=== PATIENT | female | born 2000 | race Caucasian/White ===

== ENCOUNTER 2020-04-22 08:57 | Outpatient (REF) | payer OTHER, SELFPAY ==
[2020-04-22 16:05] LABS: CT PCR NOT DETECTED (Not Detect.); NG PCR NOT DETECTED (Not Detect.)
[2020-04-23 11:17] LABS: BV Int Neg Control Negative (Negative); BV Int Pos Control Positive (Positive)
== END 2020-04-22 08:58 | disposition home or self-care (01) ==
LOC: HO.LAB 08:57
PROVIDERS: Visit Provider Obstetrics & Gynecology
DX: R10.2 Pelvic and perineal pain (principal); Z30.9 Encounter for contraceptive management, unspecified
CPT/HCPCS: 81025; 87480; 87491; 87510; 87591; 87660; 99212

== ENCOUNTER 2020-04-25 11:01 | Emergency (ER) | payer OTHER, SELFPAY ==
[2020-04-25 11:25] VITALS: BP 101/63; PULSE 81; RESP 16; TEMP 36.6; O2SAT 100; BMI 23.0
[2020-04-25 11:30] VITALS: BP 101/63; PULSE 81; RESP 16; TEMP 36.6; O2SAT 100
--- NOTE | 2020-04-25 11:38 | ED.NAVMDI ---
HPI - Nausea/Vomiting/Diarrhea General Chief complaint: Nausea/Vomiting/Diarrhea Stated complaint: VOMITING Time Seen by Provider: 04/25/20 11:29 Source: patient Mode of arrival: ambulatory Limitations: no limitations History of Present Illness HPI Narrative: 19-year-old female presented with nausea and vomiting for 1 month, feeling weak and dizzy. MD elicited complaint: nausea, vomiting and diarrhea ( On and off for last month's period) Onset (ago): month(s) (1) Description of vomiting: watery Description of diarrhea: semi-solid Associated nausea: Yes Associated abdominal pain: Yes Location of pain: LLQ Pain consistency: intermittent Severity: mild Quality: cramping Exacerbating factors: none Relieving factors: none Associated symptoms: denies other symptoms Related Data Previous Rx's Medication Instructions Recorded desogestrel 0.15 mg-ethinyl 1 tab PO DAILY #28 tab 04/03/20 estradiol 0.03 mg tablet desogestrel 0.15 mg-ethinyl 1 tab PO DAILY 28 Days #28 tab 04/22/20 estradiol 0.03 mg tablet metronidazole 500 mg tablet 500 mg PO BID 7 Days #14 tab 04/23/20 omeprazole magnesium [Prilosec OTC] 20 mg PO BID #30 tab 04/25/20 ondansetron HCl [Zofran] 4 mg PO Q8H PRN #7 tab 04/25/20 Allergies Allergy/AdvReac Type Severity Reaction Status Date / Time No Known Allergies Allergy Unverified 03/12/20 17:21 [No Known Allergies*] Review of Systems Review of Systems: all other systems are reviewed and are negative Constitutional: Reports as per HPI and Reports no additional constitutional complaints Eyes: Reports as per HPI and Reports no additional eye complaints Reports system reviewed and no additional complaints, except as documented Cardiovascular: Reports as per HPI and Reports no additional cardiovascular complaints Respiratory: Reports as per HPI and Reports no additional respiratory complaints Gastrointestinal: Reports as per HPI and Reports no additional gastrointestinal complaints Genitourinary: Reports no additional female genitourinary complaints Musculoskeletal: Reports no additional musculoskeletal complaints Skin/Breast: Reports system reviewed and no additional complaints, except as docu Psychiatric: Reports no additional psychiatric complaints Endocrine: Reports no additional endocrine complaints Hematologic/Lymphatic: Reports no additional hematologic/lymphatic complaints Allergic/Immunologic: Reports no additional allergic/immunologic complaints Reports system reviewed and no additional complaints, except as documented and Reports Abnormal speech present Gastrointestinal: Gastrointestinal: Reports nausea PMFSH Past Medical History Medical History Asthma Migraines Social History Social History Alcohol intake: never Smoking Status: Never smoker Use of substances other than those prescribed or required for medical reasons: No Substance Use Type: Marijuana Advance Directives: No Advance Directives Information Provided: No Sexual orientation: Straight/Heterosexual Gender identity: female Physical Exam Vital Signs: Vital Signs: Vital Signs Temp Pulse Resp BP Pulse Ox 04/25/20 11:30 98 F 81 16 101/63 100 04/25/20 11:25 98 F 81 16 101/63 100 Body Mass Index 23.0 vital signs have been reviewed as normal and appeared to be correct. Blood pressure normal. Heart rate normal. Respiration rate normal. Temperature normal. Oxygen saturation normal. Appearance: Alert. Oriented X3. No acute distress. Head: Normal external exam. Normocephalic. Atraumatic. No Mitchell signs noted. No raccoon eyes noted Eyes: PERRLA. EOMI. Conjunctiva and sclera normal. Eyelids normal. ENT: EAC normal. TM's Normal. Pharynx normal. Uvula midline. Moist mucous membranes. No trismus noted. No drooling noted. No muffled voice noted. Neck: Normal inspection. Neck supple. FROM. No adenopathy. Thyroid Normal. No meningeal signs. No neck mass noted. CVS: Normal heart rate and rhythm. Heart sound normal. No murmurs noted. Pulses normal throughout. Respiratory: No respiratory distress. Painless inspiration. Breath sounds normal. No wheezes/rales/rhonchi noted. Chest nontender. No accessory muscle usage noted or decreased air movement noted. Abdomen: Soft and nontender. Bowel sounds normal in all 4 quadrants. No distention noted. No organomegaly noted. No visible injury noted. Back: No CVA tenderness. Full range of motion noted. Skin: Skin warm and dry. Normal skin color. Normal skin turgor. No rashes/lesions/lacerations noted. Extremities: No lower extremity edema. Extremities exhibit normal range of motion. Extremities nontender. Neuro: Oriented X 3. No motor deficit. No sensory deficit. Reflexes normal. Course Course Course Narrative: 19-year-old female came in with 1 month of nausea and vomiting with intermittent diarrhea, exam and physical findings are consistent with probably gastritis. IV fluid/Zofran/ Pepcid/ check labs / check UA and . Will reassess. MDM - Nausea/Vomiting/Diarrhea MDM Narrative Medical decision making narrative: assessment and plan. This is a 19-year-old female otherwise healthy presented with nausea and vomiting time 1 month, physical exam and clinical finding are more consistent with gastritis presentation, patient improved after was given Pepcid / Zofran was able to tolerate p.o. intake, labs and physical exam not indicated for acute medical intervention at this point. As discussed with the patient will be discharged home on Prilosec / follow-up with GI as an outpatient consult. Lab Data Attestation: I reviewed the patient's lab results. Result diagrams: 04/25/20 11:39 04/25/20 11:39 Labs: Lab Results 04/25/20 04/25/20 04/25/20 Range/Units 11:39 11:39 11:39 WBC 6.3 (4.8-10.8) X10*3/uL RBC 5.23 (4.20-5.50) X10*6/uL Hgb 14.3 (12.0-16.0) g/dl Hct 42.5 (37-47) % MCV 81.3 (80-98) fL MCH 27.3 (27.0-33.0) pg MCHC 33.6 (31.0-35.0) g/dl RDW 12.6 (11.0-16.0) % Plt Count 281 (160-400) X10*3/uL MPV 10.3 (9.4-12.3) fL Immature Gran % (Auto) 0.3 (0.0-0.4) % Neut % (Auto) 65.4 (45-73) % Lymph % (Auto) 26.7 (20-40) % [place] % (Auto) 5.3 (2-11) % Eos % (Auto) 1.8 (0-4) % Baso % (Auto) 0.5 (0-2) % Lymph # (Auto) 1.7 (1.2-4.9) X10*3/uL [place] # (Auto) 0.3 (0.1-1.2) X10*3/uL Eos # (Auto) 0.1 (0.0-0.4) X10*3/uL Baso # (Auto) 0.0 (0.0-0.2) X10*3/uL Abs Immat Gran (auto) 0.02 (0.00-0.03) X10*3/uL Absolute Neuts (auto) 4.1 (2.0-8.3) X10*3/uL Absolute Nucleated RBC 0.000 (0.0-0.012) X10*3/uL Nucleated RBC % (auto) 0.0 (0.0-0.2) /100WBC Sodium 138 (135-145) mmol/L Potassium 4.4 (3.3-5.1) mmol/l Chloride 104 (96-108) mmol/L Carbon Dioxide 25 (22-29) mmol/L Anion Gap 13 (12-20) BUN 12 (9-16) mg/dL Creatinine 0.68 (0.5-1.4) mg/dL Estim Creat Clear Calc 109.1 Estimated GFR > 60 Random Glucose 99 (60-115) mg/dL Calcium 8.5 (8.4-10.2) mg/dL Lipase 12 (8-78) U/L Urine Color YELLOW Urine Appearance HAZY Urine pH 6.0 (5.0-8.0) Ur Specific [place] >= 1.030 H (1.005-1.025) Urine Protein NEG (NEG-TRACE) MG/DL Urine Glucose (UA) NEG (NEG) MG/DL Urine Ketones 5 (NEG) MG/DL Urine Blood NEG (NEG) Urine Nitrite NEG (NEG) Ur Leukocyte Esterase NEG (NEG) Urine Test NEGATIVE (NEGATIVE) Discharge Plan Discharge Clinical Impression: Gastritis Qualifiers: Gastritis type: unspecified gastritis Chronicity: chronic Gastritis bleeding: without bleeding Qualified Code(s): K29.50 - Unspecified chronic gastritis without bleeding Patient Disposition: Home, Self-Care Instructions: Gastritis (ED) Prescriptions: New omeprazole magnesium [Prilosec OTC] 20 mg tablet,delayed release (DR/EC) 20 mg PO BID Qty: 30 RF: 0 ondansetron HCl [Zofran] 4 mg tablet 4 mg PO Q8H PRN (Reason: nausea and vomiting) Qty: 7 RF: 0 No Action desogestrel-ethinyl estradiol 0.15-0.03 mg tablet 1 tab PO DAILY Qty: 28 RF: 0 metronidazole [Flagyl] 500 mg tablet 500 mg PO BID 7 Days Qty: 14 RF: 0 desogestrel-ethinyl estradiol [Apri] 0.15-0.03 mg tablet 1 tab PO DAILY 28 Days Qty: 28 RF: 11 Referrals: Ari Santacruz MD [Physician] - 2 weeks
[2020-04-25] MEDS: 0.9 % Sodium Chloride 500 ML 1000 ML IV (11:39)
[2020-04-25] MEDS: Famotidine/PF 20 MG/2 ML VIAL IVPUSH (11:43)
[2020-04-25] MEDS: ondansetron HCL 4 MG/2 ML VIAL IVPUSH (11:43)
[2020-04-25 11:45] LABS: MANUAL DIFF FLAG NO
[2020-04-25 11:47] LABS: Basophils Percent Auto 0.5 % (0-2); Eosinophils Absolute Auto 0.1 X10*3/uL (0.0-0.4); Eosinophils Percent Auto 1.8 % (0-4); Hematocrit 42.5 % (37-47); Hemoglobin 14.3 g/dl (12.0-16.0); Imm Gran Abs Auto 0.02 X10*3/uL (0.00-0.03); Imm Gran Pct Auto 0.3 % (0.0-0.4); Lymphocytes Absolute Auto 1.7 X10*3/uL (1.2-4.9); Lymphocytes Percent Auto 26.7 % (20-40); Mean Corpuscular HGB Conc 33.6 g/dl (31.0-35.0); Mean Corpuscular Hemoglobin 27.3 pg (27.0-33.0); Mean Corpuscular Volume 81.3 fL (80-98); Mean Platelet Volume 10.3 fL (9.4-12.3); Monocytes Absolute Auto 0.3 X10*3/uL (0.1-1.2); Monocytes Percent Auto 5.3 % (2-11); Neutrophils Absolute Auto 4.1 X10*3/uL (2.0-8.3); Neutrophils Percent Auto 65.4 % (45-73); Platelet Count 281 X10*3/uL (160-400); Red Blood Count 5.23 X10*6/uL (4.20-5.50); Red Cell Distribution Width 12.6 % (11.0-16.0); White Blood Count 6.3 X10*3/uL (4.8-10.8)
[2020-04-25 11:50] LABS: Glucose Urine UA NEG (NEG); Leukocyte Esterase Urine NEG (NEG); Nitrite Urine NEG (NEG); Specific Gravity - Urine >= 1.030 (1.005-1.025); Urine Blood NEG (NEG); Urine Ketones 5 MG/DL (NEG); Urine Protein NEG (NEG-TRACE)
--- NOTE | 2020-04-25 11:51 | PC.NURSE ---
PT UPRIGHT IN BED, RR EVEN UNLABORED, SKIN WPD, AOX3. PT C/O N/V EVERY MORNING X1 MONTH, STS HAS HAD MULTIPLE SYNCOPAL EPISODES DURING VOMITING EPISODES. PT STS HAS LAST PERIOD X1.5 WEEKS AGO, HAD NEG PREG TEST AT [facility] LAST WEEK. PT REPORTS SIMILAR SX W/ FIRST . IV ESTABLISHED, LABS DRAWN, NS INFUSING, PT MEDICATED PER EMAR. PT AWAITING LAB RESULTS, AWARE/AGREEABLE TO PLAN OF CARE
[2020-04-25 11:52] LABS: Appearance Urine HAZY; Color Urine YELLOW
[2020-04-25 11:53] LABS: UPreg QC Valid YES; Urine Pregnancy NEGATIVE (NEGATIVE)
[2020-04-25 12:15] LABS: Anion Gap 13 (12-20); Blood Urea Nitrogen 12 mg/dL (9-16); Calcium 8.5 mg/dL (8.4-10.2); Carbon Dioxide 25 mmol/L (22-29); Chloride 104 mmol/L (96-108); Creatinine Clr Calc Pharmacy 109.1; Estimated Glomerular Filt Rate > 60; Glucose Random 99 mg/dL (60-115); Lipase 12 U/L (8-78); Potassium 4.4 mmol/l (3.3-5.1); Sodium 138 mmol/L (135-145)
== END 2020-04-25 13:00 | disposition home or self-care (01) ==
PROVIDERS: Emergency Provider Emergency Medicine
DX: K29.50 Unspecified chronic gastritis without bleeding (principal); R19.7 Diarrhea, unspecified; R10.32 Left lower quadrant pain; Z79.899 Other long term (current) drug therapy
CPT/HCPCS: 36415; 80048; 81003; 81025; 83690; 85025; 96374; 96375; 99284; J2405

== ENCOUNTER 2020-04-29 11:29 | Outpatient (REF) | payer OTHER, SELFPAY ==
--- NOTE | 2020-04-29 11:34 | US_ITS ---
EXAMINATION: PELVIC ULTRASOUND CLINICAL INFORMATION: Pelvic and perineal pain COMPARISON: Previous pelvic ultrasounds most recent December [address] of the abdomen and pelvis most recent July 2019 TECHNIQUE: Transabdominal and transvaginal pelvic ultrasound was performed. Transvaginal exam was performed for better visualization of the uterus and ovaries. FINDINGS: Uterus is anteverted and measures 8.2 x 3.8 x 4.9 cm. No focal uterine lesion is seen. Endometrial thickness is normal measuring 1 cm. The cervix is normal appearing. The right ovary is normal-appearing and measures 2.4 x 2.5 x 1.1 cm. The left ovary measures 2.8 x 2.5 x 1.7 cm. There is a 1.4 x 1.8 x 1.5 cm complex left ovarian cyst with increased vascularity probably representing a physiologic corpus luteum. There is a small amount of fluid in the pelvis. There are prominent pelvic vessels questionable for pelvic congestion. US/US pelvic complete IMPRESSION: Prominent pelvic vessels questionable for pelvic congestion. 1.4 x 1.8 x 1.5 cm complex left ovarian cyst probably representing a physiologic corpus luteum.
--- NOTE | 2020-04-29 11:34 | US_ITS ---
EXAMINATION: PELVIC ULTRASOUND CLINICAL INFORMATION: Pelvic and perineal pain COMPARISON: Previous pelvic ultrasounds most recent December [address] of the abdomen and pelvis most recent July 2019 TECHNIQUE: Transabdominal and transvaginal pelvic ultrasound was performed. Transvaginal exam was performed for better visualization of the uterus and ovaries. FINDINGS: Uterus is anteverted and measures 8.2 x 3.8 x 4.9 cm. No focal uterine lesion is seen. Endometrial thickness is normal measuring 1 cm. The cervix is normal appearing. The right ovary is normal-appearing and measures 2.4 x 2.5 x 1.1 cm. The left ovary measures 2.8 x 2.5 x 1.7 cm. There is a 1.4 x 1.8 x 1.5 cm complex left ovarian cyst with increased vascularity probably representing a physiologic corpus luteum. There is a small amount of fluid in the pelvis. There are prominent pelvic vessels questionable for pelvic congestion. US/US transvaginal IMPRESSION: Prominent pelvic vessels questionable for pelvic congestion. 1.4 x 1.8 x 1.5 cm complex left ovarian cyst probably representing a physiologic corpus luteum.
== END 2020-04-29 11:30 | disposition home or self-care (01) ==
LOC: HO.US 11:29
PROVIDERS: Visit Provider Obstetrics & Gynecology
DX: R10.2 Pelvic and perineal pain (principal)
CPT/HCPCS: 76830; 76856

== ENCOUNTER 2020-05-05 15:14 | Emergency (ER) | payer OTHER, SELFPAY ==
[2020-05-05 16:05] VITALS: BP 109/53; PULSE 88; RESP 18; TEMP 37.5; O2SAT 99; BMI 22.9
--- NOTE | 2020-05-05 16:51 | XR_ITS ---
EXAMINATION: XR CHEST CLINICAL INFORMATION: Cough COMPARISON: 11/11/2018 TECHNIQUE: Frontal view of the chest was obtained. FINDINGS: No significant abnormality is noted involving the heart, lungs, mediastinum, bony thorax or soft tissues. There appears to have been an interval breast reduction since the prior study. XR/XR chest 1V IMPRESSION: Unremarkable examination.
[2020-05-05 17:51] LABS: MANUAL DIFF FLAG NO
[2020-05-05 17:59] LABS: Appearance Urine CLEAR; Color Urine YELLOW; Glucose Urine UA NEG (NEG); Leukocyte Esterase Urine NEG (NEG); Nitrite Urine NEG (NEG); PH 7.5 (5.0-8.0); Specific Gravity - Urine 1.015 (1.005-1.025); Urine Blood NEG (NEG); Urine Ketones NEG (NEG); Urine Protein NEG (NEG-TRACE)
[2020-05-05 18:00] LABS: Basophils Percent Auto 0.4 % (0-2); Eosinophils Absolute Auto 0.2 X10*3/uL (0.0-0.4); Hemoglobin 13.9 g/dl (12.0-16.0); Imm Gran Abs Auto 0.05 X10*3/uL (0.00-0.03); Imm Gran Pct Auto 0.6 % (0.0-0.4); Lymphocytes Absolute Auto 1.9 X10*3/uL (1.2-4.9); Lymphocytes Percent Auto 23.7 % (20-40); Mean Corpuscular HGB Conc 35.6 g/dl (31.0-35.0); Mean Corpuscular Hemoglobin 28.6 pg (27.0-33.0); Mean Corpuscular Volume 80.2 fL (80-98); Mean Platelet Volume 10.7 fL (9.4-12.3); Monocytes Absolute Auto 0.4 X10*3/uL (0.1-1.2); Monocytes Percent Auto 5.2 % (2-11); Neutrophils Absolute Auto 5.5 X10*3/uL (2.0-8.3); Neutrophils Percent Auto 68.1 % (45-73); Platelet Count 254 X10*3/uL (160-400); Red Blood Count 4.86 X10*6/uL (4.20-5.50); Red Cell Distribution Width 12.7 % (11.0-16.0); UPreg QC Valid YES; Urine Pregnancy NEGATIVE (NEGATIVE); White Blood Count 8.1 X10*3/uL (4.8-10.8)
[2020-05-05 18:11] LABS: RBC Urine 0 /HPF (0); Squamous Epithelial Cell Urine TRACE /LPF; WBC Urine 0 /HPF (0-4)
[2020-05-05 18:12] LABS: Bacteria Urine TRACE /LPF; Mucus Urine TRACE /LPF
[2020-05-05 18:16] LABS: Lipase 23 U/L (8-78)
[2020-05-05 18:16] LABS: COVID-19 Test Negative (Negative)
[2020-05-05 18:17] LABS: Alanine Aminotransferase 11 U/L (0-31); Albumin Level 4.4 g/dL (3.5-5.0); Alkaline Phosphatase 56 U/L (39-117); Anion Gap 15 (12-20); Aspartate Amino Transferase 15 U/L (5-31); Bilirubin Total 0.4 mg/dL (0.0-1.0); Blood Urea Nitrogen 11 mg/dL (9-16); Calcium 9.2 mg/dL (8.4-10.2); Carbon Dioxide 22 mmol/L (22-29); Chloride 106 mmol/L (96-108); Creatinine Clr Calc Pharmacy 107.5; Estimated Glomerular Filt Rate > 60; Glucose Random 70 mg/dL (60-115); Sodium 139 mmol/L (135-145); Total Protein 7.3 g/dL (6.5-8.0)
--- NOTE | 2020-05-05 18:47 | ED_ITS ---
HPI - General Adult General Chief complaint: Upper Respiratory Symptoms Stated complaint: covid symptoms Time Seen by Provider: 05/05/20 16:50 Source: patient Mode of arrival: ambulatory Limitations: no limitations History of Present Illness HPI narrative: Otherwise healthy 19-year-old female who is A0 with 1 child who is 3 years old born spontaneous vaginal delivery, asthma and migraine headache who presents today with multiple complaints. 1. She reports that for the past couple days she has had runny nose/cough and congestion with body aches called her director of reimbursement was told to come here to get a COVID-19 test. Denies any fever, chest pain or shortness of breath. No recent travel 2. She reports she has been having intermittent left-sided pelvic pain ongoing for past several weeks she was initially seen here 2 weeks ago for similar she had ultrasound done on the 29 of April and states she has not sure with the results were she also went to [facility] yesterday they did blood work urine test however due to long wait she left from there. States she called her director of reimbursement and due to her upper respiratory symptom was told to come here. Pain is described as cramping like and intermittent in the left pelvic area. States she is sexually active in a monogamous relationship though no concern for STI. No vaginal bleeding or discharge or foul smell. Related Data Previous Rx's Medication Instructions Recorded desogestrel 0.15 mg-ethinyl 1 tab PO DAILY #28 tab 04/03/20 estradiol 0.03 mg tablet desogestrel 0.15 mg-ethinyl 1 tab PO DAILY 28 Days #28 tab 04/22/20 estradiol 0.03 mg tablet omeprazole magnesium [Prilosec OTC] 20 mg PO BID #30 tab 04/25/20 ondansetron HCl [Zofran] 4 mg PO Q8H PRN #7 tab 04/25/20 Allergies Allergy/AdvReac Type Severity Reaction Status Date / Time No Known Allergies Allergy Verified 05/05/20 16:05 [No Known Allergies*] Review of Systems Review of Systems: Constitutional: No Weight loss, No Fever, + Chills, No Night Sweats, No Fatigue, No Malaise ENT/Mouth: No Hearing loss, No Ear Pain, No Nasal Congestion, No Sinus Pain, No Hoarseness, No sore throat, + Rhinorrhea, No Swallowing Difficulty Eyes: No Eye Pain, No Swelling, No Redness, No Foreign Body, No Discharge, No Vision Changes Cardiovascular: No Chest Pain, No SOB, No Dyspnea on Exertion, No Orthopnea, No Edema, No Palpitations Respiratory: + Cough, No Sputum, No Wheezing, No Smoke Exposure, No Dyspnea Gastrointestinal: No Nausea, No Vomiting, No Diarrhea, No Constipation, No Hematochezia, No Melena Genitourinary: no irregular bleeding, No Dysuria, No Urinary Frequency, No Hematuria, No Urinary Incontinence, No Urgency, No Flank Pain, No Urinary Flow Changes, No Hesitancy Musculoskeletal: No joint pain, No Myalgias, No Joint Swelling Skin: No Skin Lesions, No rash Neuro: No Weakness, No Numbness, No Paresthesias, No Loss of Consciousness, No Dizziness, No Headache Psych: No Anxiety/Panic, No Depression, No SI/HI/AH/VH Heme/Lymph: No Bruising, No Bleeding,No Lymphadenopathy Endocrine: No Polyuria, No Polydipsia, No Temperature Intolerance Yes all other systems are reviewed and are negative [facility] Past Medical History Attestation statement: The following information was validated with the patient. Medical History Asthma Migraines Social History Social History Alcohol intake: never Smoking Status: Never smoker Substance Use Type: Marijuana Advance Directives: No Advance Directives Information Provided: No Sexual orientation: Straight/Heterosexual Gender identity: female Physical Exam Vital Signs: Vital Signs: Last Vital Signs Temp 99.5 F 05/05/20 16:05 Pulse 88 05/05/20 16:05 Resp 18 05/05/20 16:05 BP 109/53 L 05/05/20 16:05 Pulse Ox 99 05/05/20 16:05 Body Mass Index 22.9 Reviewed Const: General: cooperative and healthy appearing; No acute distress or intoxicated appearing Nutritional Appearance: average body habitus Orientation/consciousness: patient oriented x3 HENMT: Head: Yes normal to inspection Ears: hearing grossly normal bilaterally Eyes: General: appearance normal, both eyes and all related structures Visual Nguyen: normal visual nguyen by confrontation Neck: Neck: Yes normal visual inspection and No tender Thyroid: Thyroid normal Chest: Chest palpation & inspection: normal inspection of the chest Resp: Effort & Inspection: normal respiratory effort Cardio: Jugular venous distension: no JVD GI: Inspection: Yes normal to inspection Percussion: Yes normal to percussion Auscultation: normal bowel sounds : General: Yes no CVA tenderness Back/Spine/Pelvis: Back: no CVA tenderness Skin: General skin exam: no rashes or lesions noted Neuro: General: patient oriented x3 Extrem: General: Yes normal to inspection Course Course Course Narrative: Interview 19-year-old female with above history presenting with multiple complaints as noted above 1 with upper respiratory symptoms for this we will go ahead and check for COVID-19 and chest x-ray does have some cough with vague shortness of breath and body aches chills rule out pneumonia. In addition to this she also reports left-sided pelvic pain in review her chart she was seen here and had ultrasound showed prominent pelvic vessels questionable for pelvic congestion with 1.4 x1 0.8 x 1.5 cm complex left ovarian cyst probable representing a physiologic corpus luteum. Will check UA for , CT/NG swab/BV swab and will consider redoing ultrasound including renal ultrasound. Reevaluation(s) Reevaluation #1: Shortly after labs done patient upset that she had to be here in emergency room and now states that she only came for COVID-19 test and would like to go see her doctor does not want to discuss her results she just wants to leave. Aware unsure of the cause of her left-sided pelvic pain indication requiring further investigation with ultrasound and possible CT of the abdomen pelvis. AMA in relation to the complaint reviewed with the patient with understanding t hat she could potentially be having a kidney stone, venule disease, ovarian cyst, torsion or rupture. Understand that her condition can deteriorate and cause her organ damage and not limited to . Medical Decision Making Lab Data Result diagrams: 05/05/20 17:39 05/05/20 17:39 Labs: Lab Results 05/05/20 05/05/20 05/05/20 Range/Units 17:38 17:39 17:39 WBC 8.1 (4.8-10.8) X10*3/uL RBC 4.86 (4.20-5.50) X10*6/uL Hgb 13.9 (12.0-16.0) g/dl Hct 39.0 (37-47) % MCV 80.2 (80-98) fL MCH 28.6 (27.0-33.0) pg MCHC 35.6 H (31.0-35.0) g/dl RDW 12.7 (11.0-16.0) % Plt Count 254 (160-400) X10*3/uL MPV 10.7 (9.4-12.3) fL Immature Gran % (Auto) 0.6 H (0.0-0.4) % Neut % (Auto) 68.1 (45-73) % Lymph % (Auto) 23.7 (20-40) % [place] % (Auto) 5.2 (2-11) % Eos % (Auto) 2.0 (0-4) % Baso % (Auto) 0.4 (0-2) % Lymph # (Auto) 1.9 (1.2-4.9) X10*3/uL [place] # (Auto) 0.4 (0.1-1.2) X10*3/uL Eos # (Auto) 0.2 (0.0-0.4) X10*3/uL Baso # (Auto) 0.0 (0.0-0.2) X10*3/uL Abs Immat Gran (auto) 0.05 H (0.00-0.03) X10*3/uL Absolute Neuts (auto) 5.5 (2.0-8.3) X10*3/uL Absolute Nucleated RBC 0.000 (0.0-0.012) X10*3/uL Nucleated RBC % (auto) 0.0 (0.0-0.2) /100WBC Sodium (135-145) mmol/L Potassium (3.3-5.1) mmol/l Chloride (96-108) mmol/L Carbon Dioxide (22-29) mmol/L Anion Gap (12-20) BUN (9-16) mg/dL Creatinine (0.5-1.4) mg/dL Estim Creat Clear Calc Estimated GFR Random Glucose (60-115) mg/dL Calcium (8.4-10.2) mg/dL Total Bilirubin (0.0-1.0) mg/dL AST (5-31) U/L ALT (0-31) U/L Alkaline Phosphatase (39-117) U/L Total Protein (6.5-8.0) g/dL Albumin (3.5-5.0) g/dL Lipase 23 (8-78) U/L Urine Color Urine Appearance Urine pH (5.0-8.0) Ur Specific [place] (1.005-1.025) Urine Protein (NEG-TRACE) MG/DL Urine Glucose (UA) (NEG) MG/DL Urine Ketones (NEG) MG/DL Urine Blood (NEG) Urine Nitrite (NEG) Ur Leukocyte Esterase (NEG) Urine RBC (0) /HPF Urine WBC (0-4) /HPF Ur Squamous Epith Cells /LPF Urine Bacteria /LPF Urine Mucus /LPF Urine Test (NEGATIVE) COVID-19 (BELEM) Negative (Negative) COVID-19 Clin Com See Note 05/05/20 05/05/20 Range/Units 17:39 17:39 WBC (4.8-10.8) X10*3/uL RBC (4.20-5.50) X10*6/uL Hgb (12.0-16.0) g/dl Hct (37-47) % MCV (80-98) fL MCH (27.0-33.0) pg MCHC (31.0-35.0) g/dl RDW (11.0-16.0) % Plt Count (160-400) X10*3/uL MPV (9.4-12.3) fL Immature Gran % (Auto) (0.0-0.4) % Neut % (Auto) (45-73) % Lymph % (Auto) (20-40) % [place] % (Auto) (2-11) % Eos % (Auto) (0-4) % Baso % (Auto) (0-2) % Lymph # (Auto) (1.2-4.9) X10*3/uL [place] # (Auto) (0.1-1.2) X10*3/uL Eos # (Auto) (0.0-0.4) X10*3/uL Baso # (Auto) (0.0-0.2) X10*3/uL Abs Immat Gran (auto) (0.00-0.03) X10*3/uL Absolute Neuts (auto) (2.0-8.3) X10*3/uL Absolute Nucleated RBC (0.0-0.012) X10*3/uL Nucleated RBC % (auto) (0.0-0.2) /100WBC Sodium 139 (135-145) mmol/L Potassium 4.0 (3.3-5.1) mmol/l Chloride 106 (96-108) mmol/L Carbon Dioxide 22 (22-29) mmol/L Anion Gap 15 (12-20) BUN 11 (9-16) mg/dL Creatinine 0.69 (0.5-1.4) mg/dL Estim Creat Clear Calc 107.5 Estimated GFR > 60 Random Glucose 70 (60-115) mg/dL Calcium 9.2 D (8.4-10.2) mg/dL Total Bilirubin 0.4 (0.0-1.0) mg/dL AST 15 (5-31) U/L ALT 11 (0-31) U/L Alkaline Phosphatase 56 (39-117) U/L Total Protein 7.3 (6.5-8.0) g/dL Albumin 4.4 (3.5-5.0) g/dL Lipase (8-78) U/L Urine Color YELLOW Urine Appearance CLEAR Urine pH 7.5 (5.0-8.0) Ur Specific [place] 1.015 (1.005-1.025) Urine Protein NEG (NEG-TRACE) MG/DL Urine Glucose (UA) NEG (NEG) MG/DL Urine Ketones NEG (NEG) MG/DL Urine Blood NEG (NEG) Urine Nitrite NEG (NEG) Ur Leukocyte Esterase NEG (NEG) Urine RBC 0 (0) /HPF Urine WBC 0 (0-4) /HPF Ur Squamous Epith Cells TRACE /LPF Urine Bacteria TRACE /LPF Urine Mucus TRACE /LPF Urine Test NEGATIVE (NEGATIVE) COVID-19 (BELEM) (Negative) COVID-19 Clin Com Discharge Plan Discharge Clinical Impression: Pelvic pain, Viral infection Patient Disposition: Left Against Medical Advice Instructions: Upper Respiratory Infection (ED), Pelvic Pain (ED) Additional Instructions: Today your evaluate for upper respiratory symptoms as well as your left side pelvic pain Your COVID test was negative Is recommended for further investigation into the left side pelvic pain to determine what is the cause of this, however you have declined workup. You will be signed against medical advice Return if any concerning symptoms Otherwise follow up with primary care doctor as discussed Thank you Prescriptions: No Action desogestrel-ethinyl estradiol 0.15-0.03 mg tablet 1 tab PO DAILY Qty: 28 RF: 0 omeprazole magnesium [Prilosec OTC] 20 mg tablet,delayed release (DR/EC) 20 mg PO BID Qty: 30 RF: 0 ondansetron HCl [Zofran] 4 mg tablet 4 mg PO Q8H PRN (Reason: nausea and vomiting) Qty: 7 RF: 0 desogestrel-ethinyl estradiol [Apri] 0.15-0.03 mg tablet 1 tab PO DAILY 28 Days Qty: 28 RF: 11 Referrals: Cathie Benavidez MD [Primary Care Provider] - 2 days Discharge Date/Time: 05/05/20 18:49
== END 2020-05-05 18:49 | disposition left against medical advice (07) ==
PROVIDERS: Nurse Practitioner Primary Care; Emergency Provider Emergency Medicine; PCP Pediatrics
DX: B34.9 Viral infection, unspecified (principal); R05 Cough; Z20.828 Contact with and (suspected) exposure to other viral communicable diseases
CPT/HCPCS: 36415; 71045; 80053; 81001; 81025; 83690; 85025; 87635; 99283

== ENCOUNTER → 2020-05-14 11:08 | Outpatient (BNVA) | payer OTHER, SELFPAY | PROVIDERS: Visit Provider Obstetrics & Gynecology | DX: Z76.89 Persons encountering health services in other specified circumstances (principal) ==

== ENCOUNTER 2020-07-19 07:04 | Emergency (ER) | payer OTHER, SELFPAY ==
[2020-07-19 07:18] VITALS: BP 119/72; BP 96/52; PULSE 70; PULSE 75; RESP 16; TEMP 36.7; O2SAT 100; BMI 22.1
--- NOTE | 2020-07-19 07:45 | ED.GENADULT ---
HPI - General Adult General Chief complaint: General Medical Stated complaint: n/v/ body aches, fever Time Seen by Provider: 07/19/20 07:44 Source: patient Mode of arrival: ambulatory Limitations: no limitations History of Present Illness HPI narrative: Patient's history of recurrent vomiting episodes smokes marijuana last time she smoked was 3 days ago came here for vomiting since last night no fever no chills no cough no other family member sick at home no significant abdominal pain patient feels better after hot shower symptoms similar to those in the past Onset (ago): day(s) (1) Related Data Previous Rx's Medication Instructions Recorded desogestrel 0.15 mg-ethinyl 1 tab PO DAILY #28 tab 04/03/20 estradiol 0.03 mg tablet desogestrel 0.15 mg-ethinyl 1 tab PO DAILY 28 Days #28 tab 04/22/20 estradiol 0.03 mg tablet omeprazole magnesium [Prilosec OTC] 20 mg PO BID #30 tab 04/25/20 ondansetron HCl [Zofran] 4 mg PO Q8H PRN #7 tab 04/25/20 ondansetron 4 mg PO Q6-8H PRN #15 tab 07/19/20 Allergies Allergy/AdvReac Type Severity Reaction Status Date / Time No Known Allergies Allergy Verified 05/14/20 11:09 [No Known Allergies*] Review of Systems Review of Systems: Constitutional : No Weight loss, No Fever, No Chills ENT/Mouth : No sore throat, No Rhinorrhea Eyes: No Eye Pain, No Swelling Cardiovascular : No Chest Pain, no palpitations Respiratory : No Cough, No Sputum, no shortness of breath Gastrointestinal : No Diarrhea, No abdominal Pain, no black stools Genitourinary : No Dysuria, No Urinary Frequency Musculoskeletal : No joint pain, No Myalgias, No Joint Swelling Skin : No Skin Lesions, No rash Neuro : No Weakness, No Numbness, No Dizziness, No Headache Psych : No Anxiety/Panic, No Depression Heme/Lymph: No Bruising, No Lymphadenopathy Endocrine : No Polyuria, No Polydipsia All other systems reviewed and are negative PMFSH Past Medical History Medical History Asthma Migraines Social History Social History Alcohol intake: never Smoking Status: Never smoker Use of substances other than those prescribed or required for medical reasons: Yes Substance Use Type: Marijuana Substance Use Frequency: Occasionally Advance Directives: No Advance Directives Information Provided: No Sexual orientation: Straight/Heterosexual Gender identity: female Physical Exam Vital Signs: Vital Signs: Last Vital Signs Temp 98.0 F 07/19/20 07:18 Pulse 70 07/19/20 07:18 Resp 16 07/19/20 07:18 BP 96/52 L 07/19/20 07:18 Pulse Ox 100 07/19/20 07:18 Body Mass Index 22.1 Appearance: Alert. Oriented X3. No acute distress. Eyes: Pupils equal, round and reactive to light. ENT: Pharynx normal. Neck: Normal inspection. Neck supple. CVS: Normal heart rate and rhythm. Pulses normal. Respiratory: No respiratory distress. Breath sounds normal. Abdomen: Soft and nontender. Bowel sounds are present, no mass palpable, no CVA tenderness Skin: Skin warm and dry. Normal skin color. Normal skin turgor. Extremities: No lower extremity edema. Neuro: Oriented X 3. No motor deficit. No sensory deficit. Course Course Course Narrative: Patient feeling much better now taking p.o. fluids discharge her home on Zofran advised her not to smoke marijuana Medical Decision Making Lab Data Lab results reviewed: Yes I reviewed the patient's lab results. Labs: Lab Results 07/19/20 07/19/20 Range/Units 08:01 08:02 Urine Color YELLOW Urine Appearance CLEAR Urine pH 7.0 (5.0-8.0) Ur Specific [place] 1.015 (1.005-1.025) Urine Protein TRACE (NEG-TRACE) MG/DL Urine Glucose (UA) NEG (NEG) MG/DL Urine Ketones 40 (NEG) MG/DL Urine Blood 1+ H (NEG) Urine Nitrite NEG (NEG) Ur Leukocyte Esterase NEG (NEG) Urine RBC 0-2 (0) /HPF Urine WBC 1-4 (0-4) /HPF Ur Squamous Epith Cells 1+ /LPF Amorphous Sediment TRACE /LPF Urine Bacteria TRACE /LPF Urine Mucus 1+ /LPF Urine Test NEGATIVE (NEGATIVE) Urine Opiates Screen Not Detected (Not Detect) Ur Barbiturates Screen Not Detected (Not Detect) Ur Phencyclidine Scrn Not Detected (Not Detect) Ur Amphetamines Screen Not Detected (Not Detect) U Benzodiazepines Scrn Not Detected (Not Detect) Urine Cocaine Screen Not Detected (Not Detect) U Marijuana (THC) Screen POSITIVE H (Not Detect) Discharge Plan Discharge Clinical Impression: Vomiting Qualifiers: Vomiting type: unspecified Vomiting Intractability: non-intractable Nausea presence: with nausea Qualified Code(s): R11.2 - Nausea with vomiting, unspecified Patient Disposition: Home, Self-Care Instructions: Cannabis Abuse (ED), Cyclic Vomiting Syndrome (ED) Additional Instructions: The vomiting is likely secondary to use of cannabis stop using cannabis. Take nausea medication as advised Prescriptions: New ondansetron 4 mg tablet,disintegrating 4 mg PO Q6-8H PRN (Reason: Nausea And Vomiting) Qty: 15 RF: 0 No Action desogestrel-ethinyl estradiol 0.15-0.03 mg tablet 1 tab PO DAILY Qty: 28 RF: 0 omeprazole magnesium [Prilosec OTC] 20 mg tablet,delayed release (DR/EC) 20 mg PO BID Qty: 30 RF: 0 ondansetron HCl [Zofran] 4 mg tablet 4 mg PO Q8H PRN (Reason: nausea and vomiting) Qty: 7 RF: 0 desogestrel-ethinyl estradiol [Apri] 0.15-0.03 mg tablet 1 tab PO DAILY 28 Days Qty: 28 RF: 11
[2020-07-19 08:12] LABS: Glucose Urine UA NEG (NEG); Leukocyte Esterase Urine NEG (NEG); Nitrite Urine NEG (NEG); Specific Gravity - Urine 1.015 (1.005-1.025); Urine Blood 1+ (NEG); Urine Ketones 40 MG/DL (NEG); Urine Protein TRACE MG/DL (NEG-TRACE)
[2020-07-19 08:15] LABS: Appearance Urine CLEAR; Color Urine YELLOW
[2020-07-19 08:16] LABS: UPreg QC Valid YES; Urine Pregnancy NEGATIVE (NEGATIVE)
[2020-07-19 08:28] LABS: Bacteria Urine TRACE /LPF; RBC Urine 0-2 /HPF (0); Squamous Epithelial Cell Urine 1+ /LPF
[2020-07-19 08:29] LABS: Amorphous Sediment Urine TRACE /LPF; Mucus Urine 1+ /LPF
[2020-07-19] MEDS: 0.9 % Sodium Chloride 1,000 ML 999 ML IVCONT (08:33)
[2020-07-19 08:36] LABS: Amphetamine Screen Urine Not Detected (Not Detect); Barbiturates, Urine Not Detected (Not Detect); Benzodiazepines Screen Urine Not Detected (Not Detect); Cannabinoid Screen Urine POSITIVE (Not Detect); Cocaine Screen Urine Not Detected (Not Detect); Opiate Screen Urine Not Detected (Not Detect); Phencyclidine Screen Urine Not Detected (Not Detect)
== END 2020-07-19 09:59 | disposition home or self-care (01) ==
PROVIDERS: Emergency Provider Internal Medicine
DX: M79.10 Myalgia, unspecified site (principal); R11.2 Nausea with vomiting, unspecified; R50.9 Fever, unspecified; F12.90 Cannabis use, unspecified, uncomplicated; Z20.822 Contact with and (suspected) exposure to COVID-19; Z79.899 Other long term (current) drug therapy
CPT/HCPCS: 80307; 81001; 81025; 96360; 99284

== ENCOUNTER 2020-08-21 13:38 | Outpatient (REF) | payer OTHER, SELFPAY | END 2020-08-21 13:39 | disposition home or self-care (01) | LOC: HO.LAB 13:38 | PROVIDERS: Visit Provider Internal Medicine | DX: Z20.822 Contact with and (suspected) exposure to COVID-19 (principal) | CPT/HCPCS: 36415; C9803; U0003; U0005 ==

== ENCOUNTER 2020-09-28 13:33 | Outpatient (REF) | payer OTHER, SELFPAY ==
--- NOTE | ~2020-09-28 | US_ITS ---
EXAMINATION: ULTRASOUND OF THE PELVIS CLINICAL INFORMATION: Ovarian cyst.. COMPARISON: 04/29/2020. TECHNIQUE: Transabdominal and transvaginal pelvic ultrasound. A transvaginal study was performed in addition to the transabdominal study which did not yield an adequate examination of the uterus and ovaries due to superimposed distended gas-filled loops of bowel. FINDINGS: The uterus is normal in size and appearance, measuring 9 x 2.8 x 4.9 cm longitudinally, anteroposteriorly and transversely. The endometrial stripe thickness is normal, measuring 0.7 cm in thickness. No focal myometrial mass is seen. The ovaries bilaterally are visualized and appear normal, with the right ovary measuring 3.8 x 1.4 x 1.4 cm and the left ovary measuring 3.1 x 1.1 x 1.4 cm. Pelvic congestion in both adnexa with prominent uterine vessels. No adnexal mass or free fluid collection seen. US/US pelvic complete IMPRESSION: No adnexal lesion. Pelvic vascular congestion.
--- NOTE | ~2020-09-28 | US_ITS ---
EXAMINATION: ULTRASOUND OF THE PELVIS CLINICAL INFORMATION: Ovarian cyst.. COMPARISON: 04/29/2020. TECHNIQUE: Transabdominal and transvaginal pelvic ultrasound. A transvaginal study was performed in addition to the transabdominal study which did not yield an adequate examination of the uterus and ovaries due to superimposed distended gas-filled loops of bowel. FINDINGS: The uterus is normal in size and appearance, measuring 9 x 2.8 x 4.9 cm longitudinally, anteroposteriorly and transversely. The endometrial stripe thickness is normal, measuring 0.7 cm in thickness. No focal myometrial mass is seen. The ovaries bilaterally are visualized and appear normal, with the right ovary measuring 3.8 x 1.4 x 1.4 cm and the left ovary measuring 3.1 x 1.1 x 1.4 cm. Pelvic congestion in both adnexa with prominent uterine vessels. No adnexal mass or free fluid collection seen. US/US transvaginal IMPRESSION: No adnexal lesion. Pelvic vascular congestion.
== END 2020-09-28 13:34 | disposition home or self-care (01) ==
LOC: HO.US 13:33
PROVIDERS: Visit Provider Obstetrics & Gynecology
DX: N83.299 Other ovarian cyst, unspecified side (principal)
CPT/HCPCS: 76830; 76856

== ENCOUNTER → 2020-10-05 12:54 | Outpatient (BNVA) | payer OTHER, SELFPAY | PROVIDERS: Visit Provider Obstetrics & Gynecology ==

== ENCOUNTER 2020-10-14 00:43 | Emergency (ER) | payer OTHER, SELFPAY ==
[2020-10-14 00:44] VITALS: BP 114/56; PULSE 75; RESP 22; TEMP 36.3; O2SAT 99; BMI 17.6
[2020-10-14] MEDS: 0.9 % Sodium Chloride 1,000 ML 999 ML IV (01:54)
[2020-10-14] MEDS: Haloperidol Lactate 5 MG/ML VIAL IV (01:54)
[2020-10-14] MEDS: diphenhydrAMINE HCL 50 MG/ML VIAL 25 MG IVPUSH (01:55)
[2020-10-14] MEDS: Ketorolac Tromethamine 15 MG/ML VIAL 30 MG IV (01:55)
[2020-10-14 01:58] LABS: MANUAL DIFF FLAG NO
[2020-10-14 01:59] LABS: Basophils Percent Auto 0.3 % (0-2); Eosinophils Percent Auto 0.2 % (0-4); Hematocrit 40.1 % (37-47); Hemoglobin 13.9 g/dl (12.0-16.0); Imm Gran Abs Auto 0.02 X10*3/uL (0.00-0.03); Imm Gran Pct Auto 0.2 % (0.0-0.4); Lymphocytes Absolute Auto 1.7 X10*3/uL (1.2-4.9); Lymphocytes Percent Auto 18.3 % (20-40); Mean Corpuscular HGB Conc 34.7 g/dl (31.0-35.0); Mean Corpuscular Hemoglobin 27.5 pg (27.0-33.0); Mean Corpuscular Volume 79.4 fL (80-98); Mean Platelet Volume 10.6 fL (9.4-12.3); Monocytes Absolute Auto 0.4 X10*3/uL (0.1-1.2); Monocytes Percent Auto 4.1 % (2-11); Neutrophils Absolute Auto 7.1 X10*3/uL (2.0-8.3); Neutrophils Percent Auto 76.9 % (45-73); Platelet Count 249 X10*3/uL (160-400); Red Blood Count 5.05 X10*6/uL (4.20-5.50); Red Cell Distribution Width 13.2 % (11.0-16.0); White Blood Count 9.2 X10*3/uL (4.8-10.8)
--- NOTE | 2020-10-14 02:08 | ED_ITS ---
HPI - General Adult General Chief complaint: Abdominal Pain Stated complaint: PELVIC PAIN/NAUSEA Time Seen by Provider: 10/14/20 01:10 Source: patient Mode of arrival: ambulatory Limitations: no limitations History of Present Illness HPI narrative: 20-year-old female who presents emergency department for evaluation of lower abdominal pain, nausea, vomiting and weakness. Patient states that she has been vomiting all day long. She states that she has not been able to hold down any food, liquids or medicines. She states that this evening, her symptoms got worse and she also developed abdominal pain. She points to her lower abdomen when asked to localize the pain she states that the left lower aspect of her abdomen is worse than her right. She states that the pain is intermittent, sharp and stabbing, the pain is 10/10 at its worst is 10/10 in the emergency department. She has had associated nausea and vomiting which came before the abdominal pain. She states that she try taking a stomach medicine at home but vomited it up. She also took some morphine which was left over from a previous visit and she was able to hold this down as well. The patient denied fever, chills, chest pain, cough, shortness of breath. The patient states that she has had several episodes similar to this in the past. She has been evaluated by GI for loose diarrheal stool and had a negative colonoscopy a month prior. She has also been evaluated by family practice medical doctor for an ovarian cyst was felt to have possible pelvic congestion syndrome and has an appointment to see a pelvic specialist in October 2020. The patient states that she does smoke marijuana daily and smokes multiple times a day. She states that providers have mentioned the possibility of cannabis hyperemesis syndrome/cyclic vomiting syndrome is a possible etiology for her recurrent symptoms as well. She states that she gets vomiting every day and that her symptoms get worse 2 times a month. Related Data Previous Rx's Medication Instructions Recorded desogestrel 0.15 mg-ethinyl 1 tab PO DAILY #28 tab 04/03/20 estradiol 0.03 mg tablet desogestrel 0.15 mg-ethinyl 1 tab PO DAILY 28 Days #28 tab 04/22/20 estradiol 0.03 mg tablet omeprazole magnesium [Prilosec OTC] 20 mg PO BID #30 tab 04/25/20 ondansetron HCl [Zofran] 4 mg PO Q8H PRN #7 tab 04/25/20 ondansetron 4 mg PO Q6-8H PRN #15 tab 07/19/20 ondansetron 4 mg PO Q6-8H PRN #14 tab 10/14/20 Allergies Allergy/AdvReac Type Severity Reaction Status Date / Time No Known Allergies Allergy Verified 10/05/20 12:54 [No Known Allergies*] Review of Systems Review of Systems: Yes all other systems are reviewed and are negative [facility] Past Medical History [facility] Narrative: The patient has a history of asthma and migraines. She denies tobacco use, she drinks alcohol 1 to 2 times a week, she smokes marijuana daily and smokes multiple times a day. Medical History Asthma Migraines Social History Social History Alcohol intake: never Smoking Status: Never smoker Substance Use Type: Marijuana Advance Directives: No Sexual orientation: Straight/Heterosexual Gender identity: female Physical Exam Vital Signs: Vital Signs: Last Vital Signs Temp 98.1 F 10/14/20 03:54 Pulse 71 10/14/20 03:54 Resp 16 10/14/20 03:54 BP 94/56 L 10/14/20 03:54 Pulse Ox 99 10/14/20 03:54 Body Mass Index 17.6 Const: General: cooperative and other (In distress secondary to abdominal pain and vomiting) Orientation/consciousness: oriented to person and oriented to place Limitations: no limitations HENMT: Head: Yes normal to inspection, Yes normocephalic and Yes atraumatic Ears: external ears normal General nose exam: Normal external nose present Face and sinus: Yes normal facial exam Mouth: Normal oral and palatal mucosa present Throat: Yes posterior oropharynx normal Eyes: Periorbital: periorbital findings normal Eyelids: Yes eyelids normal Conjunctivae: conjunctivae normal Sclerae: sclerae normal Corneas: corneas normal Pupils: Equal, round and reactive pupils present Direct Ophthalmoscopy: normal light reflex Neck: Neck: Yes full ROM, Yes no lymphadenopathy, Yes no meningeal signs, Yes trachea midline and Yes supple Chest: Chest palpation & inspection: normal inspection of the chest and normal palpation of entire chest wall Resp: Effort & Inspection: normal respiratory effort and able to speak in complete sentences Auscultation: clear to auscultation bilaterally Cardio: Rate: regular rate Rhythm: regular rhythm Heart sounds: S1 matthew l heart sound present, S2 normal heart sound present and no murmurs GI: Inspection: Yes normal to inspection Palpation (GI): Soft to palpation, Tenderness to palpation present (GI) (Diffuse, [id number] tenderness), no guarding, not rigid and No hepatosplenomegaly present Auscultation: normal bowel sounds : General: Yes CVA tenderness (Mild bilateral flank tenderness left greater than right) Back/Spine/Pelvis: Back: CVA tenderness (Mild bilateral flank tenderness left greater than right) Cervical Spine: normal cervical lordosis Thoracic/Lumbar Spine: thoracic and lumbar spine normal to inspection Skin: Lesions: no lesions Rashes: no rashes Wounds: no wounds Neuro: General: oriented to person, oriented to place and no meningeal signs Cranial nerves: Yes CN's II-XII intact bilaterally and Yes Equal, round and reactive pupils present Cognition (Neuro): normal cognition Motor exam (neuro): 5/5 motor strength present throughout Extrem: General: Yes normal to inspection and Yes full ROM Psych: Appearance: well kempt Mental Status: mental status grossly normal Speech and movement: Normal speech and movement present Affect: normal affect Attitude: cooperative Thought process: Normal thought process present Thought content: Normal thought content present Course Course Course Narrative: 20-year-old female who presents emergency department for evaluation of abdominal pain, nausea and vomiting. Vital signs reveal that she was afebrile, she had a slight elevated respiratory rate of 22 otherwise vital signs are unremarkable. Her physical examination revealed that she was in distress secondary to her pain and active vomiting. Abdominal exam revealed diffuse abdominal tenderness greater in the lower abdomen left greater than right. Patient's presentation is concerning for cannabis hyperemesis syndrome/cyclic vomiting syndrome. I did order laboratory evaluation to include CBC, comprehensive metabolic panel, lipase, urinalysis, urine test. Patient was ordered to get normal saline x1 L, her nausea and vomiting was treated with haloperidol 5 mg IV, Benadryl 25 mg IV, her pain was treated with Toradol 30 mg IV. 0538: The patient is feeling significantly better after the above treatment. Patient's laboratory evaluation revealed a slightly low bicarb of 20 but otherwise was unremarkable. The patient's presentation is consistent with ca nnabis hyperemesis syndrome and I did discuss this with the patient. I strongly advised her to stop smoking marijuana for at least 6 months to see if this improves her symptoms. The patient will be discharged home with a prescription for ondansetron ODT 4 mg every 6-8 hours as needed for nausea and vomiting. Medical Decision Making Lab Data Result diagrams: 10/14/20 01:53 10/14/20 01:53 Labs: Lab Results 10/14/20 10/14/20 Range/Units 01:53 01:53 WBC 9.2 (4.8-10.8) X10*3/uL RBC 5.05 (4.20-5.50) X10*6/uL Hgb 13.9 (12.0-16.0) g/dl Hct 40.1 (37-47) % MCV 79.4 L (80-98) fL MCH 27.5 (27.0-33.0) pg MCHC 34.7 (31.0-35.0) g/dl RDW 13.2 (11.0-16.0) % Plt Count 249 (160-400) X10*3/uL MPV 10.6 (9.4-12.3) fL Immature Gran % (Auto) 0.2 (0.0-0.4) % Neut % (Auto) 76.9 H (45-73) % Lymph % (Auto) 18.3 L (20-40) % [place] % (Auto) 4.1 (2-11) % Eos % (Auto) 0.2 (0-4) % Baso % (Auto) 0.3 (0-2) % Lymph # (Auto) 1.7 (1.2-4.9) X10*3/uL [place] # (Auto) 0.4 (0.1-1.2) X10*3/uL Eos # (Auto) 0.0 (0.0-0.4) X10*3/uL Baso # (Auto) 0.0 (0.0-0.2) X10*3/uL Abs Immat Gran (auto) 0.02 (0.00-0.03) X10*3/uL Absolute Neuts (auto) 7.1 (2.0-8.3) X10*3/uL Absolute Nucleated RBC 0.000 (0.0-0.012) X10*3/uL Nucleated RBC % (auto) 0.0 (0.0-0.2) /100WBC Sodium 141 (135-145) mmol/L Potassium 3.6 (3.3-5.1) mmol/L Chloride 104 (96-108) mmol/L Carbon Dioxide 20 L (22-29) mmol/L Anion Gap 21 H (12-20) BUN 11 (9-16) mg/dL Creatinine 0.72 (0.5-1.4) mg/dL Estim Creat Clear Calc 88.5 Estimated GFR > 60 Random Glucose 101 D (60-115) mg/dL Calcium 9.8 D (8.4-10.2) mg/dL Total Bilirubin 0.8 (0.0-1.0) mg/dL AST 15 (5-31) U/L ALT 15 (0-31) U/L Alkaline Phosphatase 59 (39-117) U/L Total Protein 7.4 (6.5-8.0) g/dL Albumin 4.6 (3.5-5.0) g/dL Lipase 12 (8-78) U/L Discharge Plan Discharge Clinical Impression: Cyclic vomiting syndrome Patient Disposition: Home, Self-Care Instructions: Cyclic Vomiting Syndrome (ED) Additional Instructions: Your presentation and symptoms are consistent with cannabis hyperemesis syndrome (cyclic vomiting syndrome). Daily, long-term use of marijuana can change how the Vomiting Center works in our brain and can cause you to vomit. Treatment is to stop smoking and using marijuana products for at least 6 months. For nausea and vomiting take Zofran (ondansetron) ODT, 1 pill dissolved against her cheek her under your tongue every 6-8 hours as needed. In the emergency department today you received the following medications for your nausea, vomiting and abdominal pain: Haldol 5 mg IV (an anti-nausea medication) Benadryl 25 mg IV (an anti-nausea medicine) Toradol 30 mg IV (an anti-inflammatory pain medication). Follow-up with your doctor in 2 days. Please return to the emergency department if your symptoms get worse or if you develop any symptoms that are concerning to you. Prescriptions: New ondansetron 4 mg tablet,disintegrating 4 mg PO Q6-8H PRN (Reason: nausea and vomiting) Qty: 14 RF: 0 No Action desogestrel-ethinyl estradiol 0.15-0.03 mg tablet 1 tab PO DAILY Qty: 28 RF: 0 omeprazole magnesium [Prilosec OTC] 20 mg tablet,delayed release (DR/EC) 20 mg PO BID Qty: 30 RF: 0 ondansetron HCl [Zofran] 4 mg tablet 4 mg PO Q8H PRN (Reason: nausea and vomiting) Qty: 7 RF: 0 ondansetron 4 mg tablet,disintegrating 4 mg PO Q6-8H PRN (Reason: Nausea And Vomiting) Qty: 15 RF: 0 desogestrel-ethinyl estradiol [Apri] 0.15-0.03 mg tablet 1 tab PO DAILY 28 Days Qty: 28 RF: 11
[2020-10-14 02:40] LABS: Alanine Aminotransferase 15 U/L (0-31); Albumin Level 4.6 g/dL (3.5-5.0); Alkaline Phosphatase 59 U/L (39-117); Anion Gap 21 (12-20); Aspartate Amino Transferase 15 U/L (5-31); Bilirubin Total 0.8 mg/dL (0.0-1.0); Blood Urea Nitrogen 11 mg/dL (9-16); Calcium 9.8 mg/dL (8.4-10.2); Carbon Dioxide 20 mmol/L (22-29); Chloride 104 mmol/L (96-108); Creatinine Clr Calc Pharmacy 88.5; Estimated Glomerular Filt Rate > 60; Glucose Random 101 mg/dL (60-115); Lipase 12 U/L (8-78); Potassium 3.6 mmol/L (3.3-5.1); Sodium 141 mmol/L (135-145); Total Protein 7.4 g/dL (6.5-8.0)
[2020-10-14 03:54] VITALS: BP 94/56; PULSE 71; RESP 16; TEMP 36.7; O2SAT 99
[2020-10-14 05:53] VITALS: BP 97/47; PULSE 75; RESP 16; O2SAT 99
== END 2020-10-14 05:56 | disposition home or self-care (01) ==
PROVIDERS: Emergency Provider Emergency Medicine Emergency Medical Services
DX: R11.15 Cyclical vomiting syndrome unrelated to migraine (principal); F12.90 Cannabis use, unspecified, uncomplicated; R10.2 Pelvic and perineal pain
CPT/HCPCS: 36415; 80053; 83690; 85025; 96361; 96374; 96375; 99284; J1200; J1885

== ENCOUNTER 2020-11-14 14:03 | Emergency (ER) | payer OTHER, SELFPAY ==
[2020-11-14] VITALS (10 sets, daily range): BP systolic 100–132; BP diastolic 53–91; PULSE 63–97; RESP 13–24; TEMP 35.9–37.2; O2SAT 99–100; BMI 20.3
--- NOTE | ~2020-11-14 | CT_ITS ---
EXAMINATION: CT ABDOMEN AND PELVIS WITH CONTRAST CLINICAL INFORMATION: Mid lower abdominal pain COMPARISON: 08/13/2019 and 02/21/2018 TECHNIQUE: Multidetector volumetric images were obtained from the superior aspect of the liver through the pubic symphysis following administration 85 mL of Omnipaque 350 intravenous contrast. Sagittal and coronal reformatted images were obtained on the technologist's workstation. Oral contrast: No This CT examination was performed using dose optimization techniques as appropriate, variously including the following: *Automated exposure control *Adjustment of mA and/or kV according to patient size (this includes techniques or standardized protocols for targeted exams where dose is matched to indication/reason for exam; i.e. extremities or head) *Use of iterative reconstruction technique DLP: 334 mGy-cm FINDINGS: LUNG BASES: The visualized lung bases are unremarkable. LIVER, GALLBLADDER, AND BILIARY TREE: There is a new ill-defined 9 mm low-density lesion in segment 6 image 27/. This does not have the expected appearance of a simple cyst. There is likely focal fatty infiltration adjacent the fissure of the falciform ligament. Hepatic and portal veins enhance normally. The gallbladder is unremarkable with no evidence of radiopaque gallstones, gallbladder wall thickening, or obvious pericholecystic inflammatory changes. PANCREAS: Unremarkable. SPLEEN: Unremarkable. ADRENAL GLANDS: Unremarkable. KIDNEYS AND URETERS: The kidneys are normal in size, shape, and attenuation. No hydronephrosis, hydroureter, or calculi seen. No perinephric stranding. BLADDER: Unremarkable. GASTROINTESTINAL TRACT: The small and large bowel are unremarkable. The appendix is unremarkable. ABDOMINAL WALL: No significant hernia is appreciated. LYMPH NODES: Normal. VASCULAR: Unremarkable. PELVIC VISCERA: The uterus and adnexa are unremarkable. OSSEOUS STRUCTURES: No acute or suspicious osseous abnormality. CT/CT abdomen pelvis w con IMPRESSION: No acute CT findings. New ill-defined 9 mm low-density lesion in segment 6 of the liver. This does not have the expected appearance of a simple cyst. Etiology is uncertain but this is of doubtful clinical significance in the absence of a known malignancy. No follow-up imaging recommended.
[2020-11-14 16:27] LABS: Glucose, Whole Blood 92 mg/dL (60-115)
--- NOTE | 2020-11-14 16:54 | ECG_ITS ---
Test Reason : SYNCOPY Blood Pressure : / mmHG Vent. Rate : 077 BPM Atrial Rate : 077 BPM P-R Int : 120 ms QRS Dur : 076 ms QT Int : 404 ms P-R-T Axes : -22 049 -02 degrees QTc Int : 457 ms Normal sinus rhythm with sinus arrhythmia Normal ECG When compared with ECG of 11-NOV-2018 02:57, Inverted T waves have replaced nonspecific T wave abnormality in Inferior leads Referred By: Monika Rankin Electronically Signed By:ALEAH TEJADA MD
--- NOTE | 2020-11-14 17:06 | ED_ITS ---
HPI - Abdominal Pain General Chief Complaint: Syncope Stated Complaint: not feeling well? Time Seen by Provider: 11/14/20 16:54 Source: patient Mode of arrival: ambulatory Limitations: no limitations History of Present Illness HPI narrative: 20-year-old female with chronic abdominal pain presents with 10/10 abdominal pain and a syncopal episode. She is crying uncontrollably, and states that she has not been able to eat or drink because of nausea and abdominal pain she denies , abnormal vaginal discharge, had her period last week with no concerning symptoms. She denies chest pain or pressure, palpitations, fevers, chills, abdominal distention, dysuria, hematuria, and any other concerning symptoms. MD elicited complaint: abdominal pain Onset (ago): day(s) (One) Pain Consistency: constant Location: diffuse, LLQ and suprapubic Severity: severe Pain scale (0-10): 10 Quality: cramping, stabbing and aching Exacerbating factors: eating, vomiting and movement Relieving factors: nothing Associated symptoms: nausea, vomiting and syncope Treatments prior to arrival: NSAIDs Related Data Date of Last Menstrual Period: 11/08/20 Patient : No Previous Rx's Medication Instructions Recorded desogestrel 0.15 mg-ethinyl 1 tab PO DAILY #28 tab 04/03/20 estradiol 0.03 mg tablet desogestrel 0.15 mg-ethinyl 1 tab PO DAILY 28 Days #28 tab 04/22/20 estradiol 0.03 mg tablet omeprazole magnesium [Prilosec OTC] 20 mg PO BID #30 tab 04/25/20 ondansetron HCl [Zofran] 4 mg PO Q8H PRN #7 tab 04/25/20 ondansetron 4 mg PO Q6-8H PRN #15 tab 07/19/20 ondansetron 4 mg PO Q6-8H PRN #14 tab 10/14/20 Allergies Allergy/AdvReac Type Severity Reaction Status Date / Time No Known Allergies Allergy Verified 10/05/20 12:54 [No Known Allergies*] Review of Systems Review of Systems Constitutional: Positive syncope, No Weight loss, No Fever, No Chills, No Night Sweats, No Fatigue, No Malaise ENT/Mouth: No Hearing loss, No Ear Pain, No Nasal Congestion, No Sinus Pain, No Hoarseness, No sore throat, No Rhinorrhea, No Swallowing Difficulty Eyes: No Eye Pain, No Swelling, No Redness, No Foreign Body, No Discharge, No Vision Changes Cardiovascular: No Chest Pain, No SOB, No Dyspnea on Exertion, No Orthopnea, No Edema, No Palpitations Respiratory: No Cough, No Sputum, No Wheezing, No Smoke Exposure, No Dyspnea Gastrointestinal: Positive Nausea, Positive Vomiting, no Diarrhea, positive abdominal Pain, No Hematochezia, No Melena Genitourinary: no irregular bleeding, No Dysuria, No Urinary Frequency, No Hematuria, No Urinary Incontinence, No Urgency, No Flank Pain, No Urinary Flow Changes, No Hesitancy Musculoskeletal: No joint pain, No Myalgias, No Joint Swelling Skin: No Skin Lesions, No rash Neuro: No Weakness, No Numbness, No Paresthesias, No Loss of Consciousness, No Dizziness, No Headache Psych: No Anxiety/Panic, No Depression, No SI/HI/AH/VH, No Social Issues Heme/Lymph: No Bruising, No Bleeding,No Lymphadenopathy Endocrine: No Polyuria, No Polydipsia, No Temperature Intolerance Yes all other systems are reviewed and are negative Physical Exam Vital Signs: Vital Signs: Last Vital Signs Temp 99.0 F 11/14/20 21: Pulse 69 11/14/20 21:27 Resp 13 11/14/20 21: BP 116/61 11/14/20 21: Pulse Ox 99 11/14/20 21:22 Body Mass Index 20.3 Appearance: Alert. Oriented X3. Moderate distress. Head: Normal external exam. Normocephalic. Atraumatic. No Mitchell signs noted. No raccoon eyes noted Eyes: PERRLA. EOMI. Conjunctiva and sclera normal. Eyelids normal. ENT: TM's Normal. Pharynx normal. Uvula midline. Moist mucous membranes. No trismus noted. No drooling noted. No muffled voice noted. Neck: Normal inspection. Neck supple. No adenopathy. CVS: Normal heart rate and rhythm. Heart sound normal. No murmurs noted. Pulses equal to all extremities. Respiratory: No respiratory distress. Painless inspiration. Breath sounds normal. No wheezes/rales/rhonchi noted. Chest nontender. No accessory muscle usage noted or decreased air movement noted. Abdomen: Soft and tender to the left lower quadrant and suprapubic. Bowel sounds normal in all 4 quadrants. No distention noted. No organomegaly noted. No visible injury noted. Back: No CVA tenderness. Full range of motion noted. Skin: Skin warm and dry. Normal skin color. Normal skin turgor. No rashes/ lesions/lacerations noted. Extremities: No lower extremity edema. Extremities exhibit normal range of motion. Extremities nontender. Neuro: cranial nerves 2-12 intact, no focal neural deficits, strength 5/5 to all extremities, No motor deficit. No sensory deficit. Course Course Course Narrative: 20-year-old female presents with 10/10 abdominal pain. States that she is unable to eat or drink, has diffuse abdominal tenderness however on physical exam tenderness is greater to the left lower and suprapubic. She has had multiple ultrasounds of the pelvis and abdomen with no acute findings. Plan is for CT scan of the abdomen pelvis with contrast. Will resuscitate with 1 L of fluid, Zofran, morphine and Toradol for pain management. Approximate hour and half after receiving medications patient is resting comfortably, playing on her phone, no longer crying. CBC and Chem 7 are nega tive for acute findings. No indication of sepsis at this time. CT scan of the abdomen pelvis is negative for acute findings requiring emergent intervention, incidental finding of a lesion on the liver suspected to be benign. Patient does have follow-up with Gastroenterology, I have given her a copy of her CT scan results so she can follow up with GI for this incidental finding. Urinalysis is positive for UTI, will give Macrobid and Pyridium p.o.. Patient to be discharged home with p.o. antibiotics. Patient verbalized understanding of discharge instructions and agrees to plan of care discharge to home. MDM - Abdominal Pain Differential Diagnosis Differential diagnosis: Likely abdominal pain, acute appendicitis, calculus of kidney, constipation, diverticulitis, gastroenteritis, ovarian cyst, pancreatitis and small bowel obstruction Medical Records Attestation: I reviewed the patient's medical records. Lab Data Attestation: I reviewed the patient's lab results. Result diagrams: 11/14/20 17:16 11/14/20 17:16 Labs: Lab Results 11/14/20 11/14/20 11/14/20 Range/Units 14:07 17:16 17:16 WBC 9.8 (4.8-10.8) X10*3/uL RBC 5.64 H (4.20-5.50) X10*6/uL Hgb 15.4 (12.0-16.0) g/dl Hct 45.2 (37-47) % MCV 80.1 (80-98) fL MCH 27.3 (27.0-33.0) pg MCHC 34.1 (31.0-35.0) g/dl RDW 13.2 (11.0-16.0) % Plt Count 285 (160-400) X10*3/uL MPV 10.8 (9.4-12.3) fL Immature Gran % (Auto) 0.3 (0.0-0.4) % Neut % (Auto) 72.8 (45-73) % Lymph % (Auto) 21.8 (20-40) % [place] % (Auto) 4.6 (2-11) % Eos % (Auto) 0.2 (0-4) % Baso % (Auto) 0.3 (0-2) % Lymph # (Auto) 2.1 (1.2-4.9) X10*3/uL [place] # (Auto) 0.5 (0.1-1.2) X10*3/uL Eos # (Auto) 0.0 (0.0-0.4) X10*3/uL Baso # (Auto) 0.0 (0.0-0.2) X10*3/uL Abs Immat Gran (auto) 0.03 (0.00-0.03) X10*3/uL Absolute Neuts (auto) 7.2 (2.0-8.3) X10*3/uL Absolute Nucleated RBC 0.000 (0.0-0.012) X10*3/uL Nucleated RBC % (auto) 0.0 (0.0-0.2) /100WBC Hold Blue Top Sodium 138 (135-145) mmol/L Potassium 4.2 (3.3-5.1) mmol/L Chloride 107 (96-108) mmol/L Carbon Dioxide 18 L (22-29) mmol/L Anion Gap 17 (12-20) BUN 10 (9-16) mg/dL Creatinine 0.76 (0.5-1.4) mg/dL Estim Creat Clear Calc 96.4 Estimated GFR > 60 POC Glucose 92 (60-115) mg/dL Random Glucose 86 (60-115) mg/dL Calcium 10.3 H (8.4-10.2) mg/dL Magnesium (1.6-2.6) mg/dL Total Bilirubin (0.0-1.0) mg/dL Direct Bilirubin (0.0-0.5) mg/dL AST (5-31) U/L ALT (0-31) U/L Alkaline Phosphatase (39-117) U/L Troponin I High Sens (<3.5-17.0) ng/L Total Protein (6.5-8.0) g/dL Albumin (3.5-5.0) g/dL Lipase (8-78) U/L Beta HCG, Quant mIU/mL Urine Color Urine Appearance Urine pH (5.0-8.0) Ur Specific [place] (1.005-1.025) Urine Protein (NEG-TRACE) MG/DL Urine Glucose (UA) (NEG) MG/DL Urine Ketones (NEG) MG/DL Urine Blood (NEG) Urine Nitrite (NEG) Ur Leukocyte Esterase (NEG) Urine RBC (0) /HPF Urine WBC (0-4) /HPF Ur Squamous Epith Cells /LPF Urine Bacteria /LPF Urine Mucus /LPF Urine Opiates Screen (Not Detect) Ur Barbiturates Screen (Not Detect) Ur Phencyclidine Scrn (Not Detect) Ur Amphetamines Screen (Not Detect) U Benzodiazepines Scrn (Not Detect) Urine Cocaine Screen (Not Detect) U Marijuana (THC) Screen (Not Detect) COVID-19 (BELEM) (Negative) COVID-19 Clin Com 11/14/20 11/14/20 11/14/20 Range/Units 17:16 17:16 17:16 WBC (4.8-10.8) X10*3/uL RBC (4.20-5.50) X10*6/uL Hgb (12.0-16.0) g/dl Hct (37-47) % MCV (80-98) fL MCH (27.0-33.0) pg MCHC (31.0-35.0) g/dl RDW (11.0-16.0) % Plt Count (160-400) X10*3/uL MPV (9.4-12.3) fL Immature Gran % (Auto) (0.0-0.4) % Neut % (Auto) (45-73) % Lymph % (Auto) (20-40) % [place]ier % (Auto) (2-11) % Eos % (Auto) (0-4) % Baso % (Auto) (0-2) % Lymph # (Auto) (1.2-4.9) X10*3/uL [place] # (Auto) (0.1-1.2) X10*3/uL Eos # (Auto) (0.0-0.4) X10*3/uL Baso # (Auto) (0.0-0.2) X10*3/uL Abs Immat Gran (auto) (0.00-0.03) X10*3/uL Absolute Neuts (auto) (2.0-8.3) X10*3/uL Absolute Nucleated RBC (0.0-0.012) X10*3/uL Nucleated RBC % (auto) (0.0-0.2) /100WBC Hold Blue Top SEE NOTE Sodium (135-145) mmol/L Potassium (3.3-5.1) mmol/L Chloride (96-108) mmol/L Carbon Dioxide (22-29) mmol/L Anion Gap (12-20) BUN (9-16) mg/dL Creatinine (0.5-1.4) mg/dL Estim Creat Clear Calc Estimated GFR POC Glucose (60-115) mg/dL Random Glucose (60-115) mg/dL Calcium (8.4-10.2) mg/dL Magnesium 2.0 (1.6-2.6) mg/dL Total Bilirubin 0.8 (0.0-1.0) mg/dL Direct Bilirubin 0.2 (0.0-0.5) mg/dL AST 16 (5-31) U/L ALT 18 (0-31) U/L Alkaline Phosphatase 62 (39-117) U/L Troponin I High Sens (<3.5-17.0) ng/L Total Protein 7.8 (6.5-8.0) g/dL Albumin 4.7 (3.5-5.0) g/dL Lipase 74 (8-78) U/L Beta HCG, Quant < 2 mIU/mL Urine Color Urine Appearance Urine pH (5.0-8.0) Ur Specific [place] (1.005-1.025) Urine Protein (NEG-TRACE) MG/DL Urine Glucose (UA) (NEG) MG/DL Urine Ketones (NEG) MG/DL Urine Blood (NEG) Urine Nitrite (NEG) Ur Leukocyte Esterase (NEG) Urine RBC (0) /HPF Urine WBC (0-4) /HPF Ur Squamous Epith Cells /LPF Urine Bacteria /LPF Urine Mucus /LPF Urine Opiates Screen (Not Detect) Ur Barbiturates Screen (Not Detect) Ur Phencyclidine Scrn (Not Detect) Ur Amphetamines Screen (Not Detect) U Benzodiazepines Scrn (Not Detect) Urine Cocaine Screen (Not Detect) U Marijuana (THC) Screen (Not Detect) COVID-19 (BELEM) Negative (Negative) COVID-19 Clin Com See Note 11/14/20 11/14/20 11/14/20 Range/Units 17:16 19:29 19:29 WBC (4.8-10.8) X10*3/uL RBC (4.20-5.50) X10*6/uL Hgb (12.0-16.0) g/dl Hct (37-47) % MCV (80-98) fL MCH (27.0-33.0) pg MCHC (31.0-35.0) g/dl RDW (11.0-16.0) % Plt Count (160-400) X10*3/uL MPV (9.4-12.3) fL Immature Gran % (Auto) (0.0-0.4) % Neut % (Auto) (45-73) % Lymph % (Auto) (20-40) % [place]ier % (Auto) (2-11) % Eos % (Auto) (0-4) % Baso % (Auto) (0-2) % Lymph # (Auto) (1.2-4.9) X10*3/uL [place] # (Auto) (0.1-1.2) X10*3/uL Eos # (Auto) (0.0-0.4) X10*3/uL Baso # (Auto) (0.0-0.2) X10*3/uL Abs Immat Gran (auto) (0.00-0.03) X10*3/uL Absolute Neuts (auto) (2.0-8.3) X10*3/uL Absolute Nucleated RBC (0.0-0.012) X10*3/uL Nucleated RBC % (auto) (0.0-0.2) /100WBC Hold Blue Top Sodium (135-145) mmol/L Potassium (3.3-5.1) mmol/L Chloride (96-108) mmol/L Carbon Dioxide (22-29) mmol/L Anion Gap (12-20) BUN (9-16) mg/dL Creatinine (0.5-1.4) mg/dL Estim Creat Clear Calc Estimated GFR POC Glucose (60-115) mg/dL Random Glucose (60-115) mg/dL Calcium (8.4-10.2) mg/dL Magnesium (1.6-2.6) mg/dL Total Bilirubin (0.0-1.0) mg/dL Direct Bilirubin (0.0-0.5) mg/dL AST (5-31) U/L ALT (0-31) U/L Alkaline Phosphatase (39-117) U/L Troponin I High Sens < 3.5 (<3.5-17.0) ng/L Total Protein (6.5-8.0) g/dL Albumin (3.5-5.0) g/dL Lipase (8-78) U/L Beta HCG, Quant mIU/mL Urine Color YELLOW Urine Appearance HAZY Urine pH 8.0 (5.0-8.0) Ur Specific [place] 1.015 (1.005-1.025) Urine Protein NEG (NEG-TRACE) MG/DL Urine Glucose (UA) NEG (NEG) MG/DL Urine Ketones >=80 (NEG) MG/DL Urine Blood NEG (NEG) Urine Nitrite NEG (NEG) Ur Leukocyte Esterase TRACE H (NEG) Urine RBC 0-2 (0) /HPF Urine WBC 1-4 (0-4) /HPF Ur Squamous Epith Cells 1+ /LPF Urine Bacteria 2+ /LPF Urine Mucus 1+ /LPF Urine Opiates Screen POSITIVE H (Not Detect) Ur Barbiturates Screen Not Detected (Not Detect) Ur Phencyclidine Scrn Not Detected (Not Detect) Ur Amphetamines Screen Not Detected (Not Detect) U Benzodiazepines Scrn Not Detected (Not Detect) Urine Cocaine Screen Not Detected (Not Detect) U Marijuana (THC) Screen POSITIVE H (Not Detect) COVID-19 (BELEM) (Negative) COVID-19 Clin Com Imaging Data CT scan - abdomen: Attestation: I personally reviewed and interpreted this imaging study as follows: Radiologist's impression: FINDINGS: LUNG BASES: The visualized lung bases are unremarkable. LIVER, GALLBLADDER, AND BILIARY TREE: There is a new ill- defined 9 mm low-density lesion in segment 6 image . This does not have the expected appearance of a simple cyst. There is likely focal fatty infiltration adjacent the fissure of the falciform ligament. Hepatic and portal veins enhance normally. The gallbladder is unremarkable with no evidence of radiopaque gallstones, gallbladder wall thickening, or obvious pericholecystic inflammatory changes. PANCREAS: Unremarkable. SPLEEN: Unremarkable. ADRENAL GLANDS: Unremarkable. KIDNEYS AND URETERS: The kidneys are normal in size, shape, and attenuation. No hydronephrosis, hydroureter, or calculi seen. No perinephric stranding. BLADDER: Unremarkable. GASTROINTESTINAL TRACT: The small and large bowel are unremarkable. The appendix is unremarkable. ABDOMINAL WALL: No significant hernia is appreciated. LYMPH NODES: Normal. VASCULAR: Unremarkable. PELVIC VISCERA: The uterus and adnexa are unremarkable. OSSEOUS STRUCTURES: No acute or suspicious osseous abnormality. IMPRESSION: No acute CT findings. New ill-defined 9 mm low-density lesion in segment 6 of the liver. This does not have the expected appearance of a simple cyst. Etiology is uncertain but this is of doubtful clinical significance in the absence of a known malignancy. No follow-up imaging recommended. ECG Data Attestation: I personally reviewed and interpreted this ECG as follows: ECG interpretation date: 11/14/20 ECG interpretation time: 17:22 Interpretation: Vent. rate 77 BPM SD interval 120 ms QRS duration 76 ms QT/QTc 404/457 ms P-R-T axes -22 49 -2 Normal sinus rhythm with sinus arrhythmia N ormal ECG When compared with ECG of 11-NOV-2018 02:57, Inverted T waves have replaced nonspecific T wave abnormality in Inferior leads Discharge Plan Discharge Clinical Impression: Vasovagal syncope, UTI (urinary tract infection) Patient Disposition: Home, Self-Care Instructions: Urinary Tract Infection in Women (ED), Syncope (ED) Additional Instructions: You were evaluated for abdominal pain and syncopal episode. Lab values indicate urinary tract infection. Please take Macrobid twice a day for the next 7 days. Use Pyridium as needed for pain management. We did a CT scan of the abdomen and pelvis, there is an incidental finding of an ill-defined low-density lesion in your liver. Most likely to be fatty liver disease. 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 Keep the appointment as scheduled. Please bring the CT scan results with you to that appointment. Thank you for choosing this emergency department for evaluation. Please follow-up with primary care physician as needed. Return to the emergency department for any new, concerning, or worsening symptoms. Prescriptions: No Action desogestrel-ethinyl estradiol 0.15-0.03 mg tablet 1 tab PO DAILY Qty: 28 RF: 0 ondansetron 4 mg tablet,disintegrating 4 mg PO Q6-8H PRN (Reason: nausea and vomiting) Qty: 14 RF: 0 omeprazole magnesium [Prilosec OTC] 20 mg tablet,delayed release (DR/EC) 20 mg PO BID Qty: 30 RF: 0 ondansetron HCl [Zofran] 4 mg tablet 4 mg PO Q8H PRN (Reason: nausea and vomiting) Qty: 7 RF: 0 ondansetron 4 mg tablet,disintegrating 4 mg PO Q6-8H PRN (Reason: Nausea And Vomiting) Qty: 15 RF: 0 desogestrel-ethinyl estradiol [Apri] 0.15-0.03 mg tablet 1 tab PO DAILY 28 Days Qty: 28 RF: 11 Interventions: ED Discharge Assessment Last Done: 11/14/20 21:58 Discharge Date/Time: 11/14/20 21:59 [facility] Past Medical History Medical History Asthma Migraines Date of Last Menstrual Period: 11/08/20 Social History Social History Alcohol intake: never Smoking Status: Never smoker Substance Use Type: Marijuana Advance Directives: No Advance Directives Information Provided: No Patient : No Sexual orientation: Straight/Heterosexual Gender identity: female
[2020-11-14] MEDS: 0.9 % Sodium Chloride 1,000 ML 999 ML IVCONT (17:18)
[2020-11-14 17:31] LABS: MANUAL DIFF FLAG NO
[2020-11-14] MEDS: ondansetron HCL 4 MG/2 ML VIAL IVPUSH (17:35)
[2020-11-14 17:36] LABS: Basophils Percent Auto 0.3 % (0-2); Eosinophils Percent Auto 0.2 % (0-4); Hematocrit 45.2 % (37-47); Hemoglobin 15.4 g/dl (12.0-16.0); Imm Gran Abs Auto 0.03 X10*3/uL (0.00-0.03); Imm Gran Pct Auto 0.3 % (0.0-0.4); Lymphocytes Absolute Auto 2.1 X10*3/uL (1.2-4.9); Lymphocytes Percent Auto 21.8 % (20-40); Mean Corpuscular HGB Conc 34.1 g/dl (31.0-35.0); Mean Corpuscular Hemoglobin 27.3 pg (27.0-33.0); Mean Corpuscular Volume 80.1 fL (80-98); Mean Platelet Volume 10.8 fL (9.4-12.3); Monocytes Absolute Auto 0.5 X10*3/uL (0.1-1.2); Monocytes Percent Auto 4.6 % (2-11); Neutrophils Absolute Auto 7.2 X10*3/uL (2.0-8.3); Neutrophils Percent Auto 72.8 % (45-73); Platelet Count 285 X10*3/uL (160-400); Red Blood Count 5.64 X10*6/uL (4.20-5.50); Red Cell Distribution Width 13.2 % (11.0-16.0); White Blood Count 9.8 X10*3/uL (4.8-10.8)
[2020-11-14] MEDS: Ketorolac Tromethamine 30 MG/ML VIAL IVPUSH (17:36)
[2020-11-14] MEDS: Morphine Sulfate 4 MG/ML CARTRIDGE IVPUSH (17:36)
--- NOTE | 2020-11-14 17:40 | PC.NURSE ---
IV placed, blood work obtained, and pt medicated for pain. Pt very tearful and appears extremly anxious.
[2020-11-14 17:57] LABS: COVID-19 Test Negative (Negative); IDNOW Serial# 9DD0AD1C
[2020-11-14 18:01] LABS: Anion Gap 17 (12-20); Blood Urea Nitrogen 10 mg/dL (9-16); Calcium 10.3 mg/dL (8.4-10.2); Carbon Dioxide 18 mmol/L (22-29); Chloride 107 mmol/L (96-108); Creatinine Clr Calc Pharmacy 96.4; Estimated Glomerular Filt Rate > 60; Glucose Random 86 mg/dL (60-115); Potassium 4.2 mmol/L (3.3-5.1); Sodium 138 mmol/L (135-145)
[2020-11-14 18:03] LABS: Alanine Aminotransferase 18 U/L (0-31); Albumin Level 4.7 g/dL (3.5-5.0); Alkaline Phosphatase 62 U/L (39-117); Aspartate Amino Transferase 16 U/L (5-31); Bilirubin Direct 0.2 mg/dL (0.0-0.5); Bilirubin Total 0.8 mg/dL (0.0-1.0); Lipase 74 U/L (8-78); Total Protein 7.8 g/dL (6.5-8.0)
[2020-11-14 18:06] LABS: Troponin-I High Sensitivity < 3.5 ng/L (<3.5-17.0)
[2020-11-14 18:10] LABS: HCG Quantitative < 2 mIU/mL
[2020-11-14 19:41] LABS: Glucose Urine UA NEG (NEG); Leukocyte Esterase Urine TRACE (NEG); Nitrite Urine NEG (NEG); Specific Gravity - Urine 1.015 (1.005-1.025); UACC Culture Trigger YES; Urine Blood NEG (NEG); Urine Ketones >=80 MG/DL (NEG); Urine Protein NEG (NEG-TRACE)
[2020-11-14 19:45] LABS: Appearance Urine HAZY; Color Urine YELLOW
[2020-11-14 19:59] LABS: Bacteria Urine 2+ /LPF; Mucus Urine 1+ /LPF; RBC Urine 0-2 /HPF (0); Squamous Epithelial Cell Urine 1+ /LPF
[2020-11-14 20:07] LABS: Amphetamine Screen Urine Not Detected (Not Detect); Barbiturates, Urine Not Detected (Not Detect); Benzodiazepines Screen Urine Not Detected (Not Detect); Cannabinoid Screen Urine POSITIVE (Not Detect); Cocaine Screen Urine Not Detected (Not Detect); Opiate Screen Urine POSITIVE (Not Detect); Phencyclidine Screen Urine Not Detected (Not Detect)
[2020-11-14] MEDS: iohexoL 350 MG/ML 100 ML INFUS..BTL 85 ML IV (20:42)
[2020-11-14] MEDS: Phenazopyridine HCL 200 MG TABLET PO (21:51)
[2020-11-14] MEDS: Nitrofurantoin Monohyd/M-Cryst 100 MG CAPSULE PO (21:52)
== END 2020-11-14 21:59 | disposition home or self-care (01) ==
PROVIDERS: Emergency Medicine; Emergency Provider Student in an Organized Health Care Education/Training Program
DX: R55 Syncope and collapse (principal); N39.0 Urinary tract infection, site not specified; Z20.822 Contact with and (suspected) exposure to COVID-19; F11.90 Opioid use, unspecified, uncomplicated; F12.90 Cannabis use, unspecified, uncomplicated
CPT/HCPCS: 36415; 74177; 80048; 80076; 80307; 81001; 81003; 82947; 83690; 83735; 84484; 84702; 85025; 87086; 87147; 87635; 93005; 96361; 96374; 96375; 99285; J1885; J2270; J2405; Q9967

== ENCOUNTER 2020-11-15 23:51 | Emergency (ER) | payer OTHER, SELFPAY ==
--- NOTE | ~2020-11-15 | US_ITS ---
EXAMINATION: ULTRASOUND PELVIS CLINICAL INFORMATION: Lower pelvic pain, rule out torsion COMPARISON: 09/28/2020 TECHNIQUE: Sonographic evaluation of the pelvis was performed transabdominally and transvaginally. Color Doppler and spectral analysis was utilized. FINDINGS: The uterus measures 6.3 cm in length and 3.6 x 5.4 cm in AP and transverse dimensions. The endometrial stripe measures 0.3 cm in thickness. The right ovary measures 3.5 x 1.2 x 1.4 cm (volume 3.1 mL) and has a normal appearance. Left ovary measures 2.6 x 1.8 x 1.6 cm (volume 3.9 mL) and also has a normal appearance. Doppler evaluation demonstrates normal arterial and venous waveforms in both ovaries. Prominent vessels are noted in both adnexa and in the uterus, similar to prior. Trace specific pelvic free fluid is noted. US/US pelvic and transvaginal IMPRESSION: 1. No findings of ovarian torsion. 2. Trace nonspecific pelvic free fluid, which may be physiologic. 3. Redemonstrated prominent pelvic vasculature.
--- NOTE | ~2020-11-15 | US_ITS ---
EXAMINATION: ULTRASOUND PELVIS CLINICAL INFORMATION: Lower pelvic pain, rule out torsion COMPARISON: 09/28/2020 TECHNIQUE: Sonographic evaluation of the pelvis was performed transabdominally and transvaginally. Color Doppler and spectral analysis was utilized. FINDINGS: The uterus measures 6.3 cm in length and 3.6 x 5.4 cm in AP and transverse dimensions. The endometrial stripe measures 0.3 cm in thickness. The right ovary measures 3.5 x 1.2 x 1.4 cm (volume 3.1 mL) and has a normal appearance. Left ovary measures 2.6 x 1.8 x 1.6 cm (volume 3.9 mL) and also has a normal appearance. Doppler evaluation demonstrates normal arterial and venous waveforms in both ovaries. Prominent vessels are noted in both adnexa and in the uterus, similar to prior. Trace specific pelvic free fluid is noted. US/US pelvic ovarian doppler IMPRESSION: 1. No findings of ovarian torsion. 2. Trace nonspecific pelvic free fluid, which may be physiologic. 3. Redemonstrated prominent pelvic vasculature.
[2020-11-16] VITALS: RESP 26; BMI 22.9
[2020-11-16 01:48] VITALS: BP 114/72; PULSE 89; RESP 16; TEMP 36.9; O2SAT 98
--- NOTE | 2020-11-16 02:39 | ED.ABDPAIN ---
HPI - Abdominal Pain General Chief Complaint: Abdominal Pain Stated Complaint: Abdominal Pain Time Seen by Provider: 11/16/20 01:39 History of Present Illness HPI narrative: This is a 20-year-old female who presents with nausea, vomiting, abdominal pain with associated chills but denies urinary symptoms. Patient has multiple visits to this emergency room with similar complaints and is known to continue to smoke marijuana. Related Data Previous Rx's Medication Instructions Recorded desogestrel 0.15 mg-ethinyl 1 tab PO DAILY #28 tab 04/03/20 estradiol 0.03 mg tablet desogestrel 0.15 mg-ethinyl 1 tab PO DAILY 28 Days #28 tab 04/22/20 estradiol 0.03 mg tablet omeprazole magnesium [Prilosec OTC] 20 mg PO BID #30 tab 04/25/20 ondansetron HCl [Zofran] 4 mg PO Q8H PRN #7 tab 04/25/20 ondansetron 4 mg PO Q6-8H PRN #15 tab 07/19/20 ondansetron 4 mg PO Q6-8H PRN #14 tab 10/14/20 nitrofurantoin monohyd/m-cryst 100 mg PO Q12H 7 Days #14 cap 11/15/20 [Macrobid] phenazopyridine [Pyridium] 200 mg PO TID PRN #6 tab 11/15/20 Allergies Allergy/AdvReac Type Severity Reaction Status Date / Time No Known Allergies Allergy Verified 10/05/20 12:54 [No Known Allergies*] Review of Systems Review of Systems Pertinent positives and negatives as stated in HPI 10 point review of systems is otherwise negative. Physical Exam Vital Signs: Vital Signs: Last Vital Signs Temp 98.4 F 11/16/20 01:48 Pulse 85 11/16/20 06:00 Resp 16 11/16/20 06:00 BP 104/61 11/16/20 06:00 Pulse Ox 97 11/16/20 06:00 Body Mass Index 22.9 VITAL SIGNS: Reviewed. GENERAL: Well developed, well nourished, in no acute distress. HEAD: Normocephalic/atraumatic EYES: PERRLA, EOMI EARS: Ext canals without abnormality OROPHARYNX: no oral lesions noted, posterior pharynx clear NECK: Supple, no adenopathy LUNGS: Normal breath sounds. No adventitious sounds or accessory muscle use. SpO2<97> CARDIOVASCULAR: Regular rate and rhythm without noted murmurs ABDOMEN: Soft, non-tender, non-distended with bowel sounds. Course Course Course Narrative: 20-year-old female with history and clinical presentation consistent with acute exacerbation of chronic pelvic pain that patient and her mother state she has had for quite a while. Patient's nausea and vomiting was able to be controlled with antiemetics and a repeat pelvic ultrasound to rule out the possibility of torsion was conducted. Review of all investigations again without acute findings except continued findings of prominent pelvic vasculature. Patient was able to tolerate oral intake and counseling was held regarding patient's use of marijuana in the contact of pelvic pain. Patient and mother informed of suspected diagnosis of pelvic congestive syndrome and that it is possible to have this further evaluated by gynecology for possible intervention. He was discharged in stable condition tolerating oral intake. MDM - Abdominal Pain Lab Data Labs: Lab Results 11/16/20 11/16/20 Range/Units 02:58 02:58 Urine Color DANYEL Urine Appearance CLEAR Urine pH 5.0 (5.0-8.0) Ur Specific [place] >= 1.030 H (1.005-1.025) Urine Protein 2+ H (NEG-TRACE) MG/DL Urine Glucose (UA) 100 H (NEG) MG/DL Urine Ketones >=80 (NEG) MG/DL Urine Blood NEG (NEG) Urine Nitrite POS H (NEG) Ur Leukocyte Esterase TRACE H (NEG) Urine RBC 0 (0) /HPF Urine WBC 1-4 (0-4) /HPF Ur Squamous Epith Cells 3+ /LPF Urine Bacteria 2+ /LPF Urine Test NEGATIVE (NEGATIVE) Discharge Plan Discharge Clinical Impression: Pelvic pain, Pelvic congestion syndrome Patient Disposition: Home, Self-Care Instructions: Pelvic Pain (ED) Additional Instructions: 1. Decreasing amount of marijuana that you smoke. 2. Avoid spicy, citrus, caffeinated, carbonated items as your stomach is going to be recovering from your recent nausea and vomiting. 3. Recommend using [id number] Mylanta for additional acid control and take as directed on the outside packaging prior to meals. 4. Please follow-up with your primary care provider and discuss a referral to Gynecology for continued management of suspected pelvic congestion syndrome. Return to the ER for any acute worsening of your symptoms. Prescriptions: No Action desogestrel-ethinyl estradiol 0.15-0.03 mg tablet 1 tab PO DAILY Qty: 28 RF: 0 ondansetron 4 mg tablet,disintegrating 4 mg PO Q6-8H PRN (Reason: nausea and vomiting) Qty: 14 RF: 0 omeprazole magnesium [Prilosec OTC] 20 mg tablet,delayed release (DR/EC) 20 mg PO BID Qty: 30 RF: 0 ondansetron HCl [Zofran] 4 mg tablet 4 mg PO Q8H PRN (Reason: nausea and vomiting) Qty: 7 RF: 0 ondansetron 4 mg tablet,disintegrating 4 mg PO Q6-8H PRN (Reason: Nausea And Vomiting) Qty: 15 RF: 0 nitrofurantoin monohyd/m-cryst [Macrobid] 100 mg capsule 100 mg PO Q12H 7 Days Qty: 14 RF: 0 phenazopyridine [Pyridium] 200 mg tablet 200 mg PO TID PRN (Reason: pain) Qty: 6 RF: 0 desogestrel-ethinyl estradiol [Apri] 0.15-0.03 mg tablet 1 tab PO DAILY 28 Days Qty: 28 RF: 11 Referrals: Physician,Unknown [Primary Care Provider] - 2 days Interventions: ED Discharge Assessment Last Done: 11/16/20 07:10 Discharge Date/Time: 11/16/20 07:10 [facility] Past Medical History Source: nursing notes reviewed Medical History Asthma Migraines Social History Social History Alcohol intake: never Smoking Status: Never smoker Use of substances other than those prescribed or required for medical reasons: Yes Substance Use Type: Marijuana Advance Directives: No Advance Directives Information Provided: No Patient : No Sexual orientation: Straight/Heterosexual Gender identity: female
[2020-11-16] MEDS: ondansetron HCL 4 MG/2 ML VIAL IVPUSH (03:02)
[2020-11-16] MEDS: Metoclopramide HCl 10 MG/2 ML VIAL IM (03:02)
[2020-11-16] MEDS: diphenhydrAMINE HCL 50 MG/ML VIAL 25 MG IM (03:02)
[2020-11-16 03:14] LABS: Glucose Urine UA 100 MG/DL (NEG); Leukocyte Esterase Urine TRACE (NEG); Nitrite Urine POS (NEG); Specific Gravity - Urine >= 1.030 (1.005-1.025); UACC Culture Trigger YES; Urine Blood NEG (NEG); Urine Ketones >=80 MG/DL (NEG); Urine Protein 2+ MG/DL (NEG-TRACE)
[2020-11-16 03:17] LABS: Appearance Urine CLEAR; Color Urine AMBER; Urine Pregnancy NEGATIVE (NEGATIVE)
[2020-11-16 03:18] LABS: Bacteria Urine 2+ /LPF; RBC Urine 0 /HPF (0); Squamous Epithelial Cell Urine 3+ /LPF; UPreg QC Valid YES
--- NOTE | 2020-11-16 03:34 | PC.NURSE ---
PATIENT OFF UNIT IN ULTRASOUND AT THIS TIME
[2020-11-16 06:00] VITALS: BP 104/61; PULSE 85; RESP 16; O2SAT 97
[2020-11-16] MEDS: Lidocaine HCl Viscous 2 % 15 ML SOLUTION 10 ML MUCOUS MEM (06:35)
[2020-11-16] MEDS: Magnesium Hydrox/Alum Hydrox 30 ML ORAL.SUSP PO (06:35)
== END 2020-11-16 07:10 | disposition home or self-care (01) ==
PROVIDERS: Emergency Provider Student in an Organized Health Care Education/Training Program
DX: R10.2 Pelvic and perineal pain (principal); N94.89 Other specified conditions associated with female genital organs and menstrual cycle; F12.90 Cannabis use, unspecified, uncomplicated
CPT/HCPCS: 76830; 76856; 81001; 81003; 81025; 93975; 96372; 96374; 99284; J1200; J2405; J2765

== ENCOUNTER 2020-11-18 05:03 | Emergency (ER) | payer OTHER, SELFPAY ==
[2020-11-18 05:10] VITALS: BP 105/67; BP 130/70; PULSE 82; PULSE 89; RESP 20; TEMP 36.8; O2SAT 100; O2SAT 99; BMI 19.7
--- NOTE | 2020-11-18 05:35 | ECG_ITS ---
Test Reason : PAIN Blood Pressure : / mmHG Vent. Rate : 108 BPM Atrial Rate : 108 BPM P-R Int : 120 ms QRS Dur : 068 ms QT Int : 358 ms P-R-T Axes : 066 065 -47 degrees QTc Int : 479 ms Sinus tachycardia T inversion and downsloping ST inferior leads Abnormal ECG When compared with ECG of 14-NOV-2020 17:22, No significant change was found Referred By: Taisha Renteria Electronically Signed By:EVELYN ROGERS
[2020-11-18] MEDS: 0.9 % Sodium Chloride 1,000 ML 999 ML IV (06:03)
[2020-11-18] MEDS: Metoclopramide HCl 10 MG/2 ML VIAL IVPUSH (06:05)
[2020-11-18] MEDS: diphenhydrAMINE HCL 50 MG/ML VIAL 25 MG IVPUSH (06:05)
[2020-11-18 06:10] VITALS: BP 122/68; PULSE 108; RESP 20; TEMP 37.1; O2SAT 99
[2020-11-18 06:33] LABS: UPreg QC Valid YES; Urine Pregnancy NEGATIVE (NEGATIVE)
[2020-11-18 06:39] LABS: Glucose Urine UA NEG (NEG); Leukocyte Esterase Urine NEG (NEG); Nitrite Urine NEG (NEG); PH 6.5 (5.0-8.0); Specific Gravity - Urine 1.025 (1.005-1.025); Urine Blood 3+ (NEG); Urine Ketones >=80 MG/DL (NEG); Urine Protein 2+ MG/DL (NEG-TRACE)
[2020-11-18 06:41] VITALS: BP 110/55; PULSE 78; RESP 16; O2SAT 100
[2020-11-18 06:48] LABS: Appearance Urine CLOUDY; Color Urine AMBER
[2020-11-18 06:55] LABS: Bacteria Urine 1+ /LPF; Mucus Urine 1+ /LPF; Squamous Epithelial Cell Urine 3+ /LPF; UACC CULT YES
[2020-11-18 07:00] VITALS: BP 111/59; PULSE 95; RESP 20; O2SAT 98
--- NOTE | 2020-11-18 07:02 | ED.ABDPAIN ---
HPI - Abdominal Pain General Chief Complaint: Abdominal Pain Stated Complaint: abd pain n/v Time Seen by Provider: 11/18/20 05:27 Source: patient Mode of arrival: EMS History of Present Illness HPI narrative: This is a 20-year-old female who presents via EMS with recurrent episodes of nausea, vomiting, chills and ?dark urine?. Patient is currently menstruating. She states that she has not recently smoked marijuana that the pain has restarted and then she became nauseous and vomiting. She states she has a follow-up appointment with gynecology today. Related Data Previous Rx's Medication Instructions Recorded desogestrel 0.15 mg-ethinyl 1 tab PO DAILY #28 tab 04/03/20 estradiol 0.03 mg tablet desogestrel 0.15 mg-ethinyl 1 tab PO DAILY 28 Days #28 tab 04/22/20 estradiol 0.03 mg tablet omeprazole magnesium [Prilosec OTC] 20 mg PO BID #30 tab 04/25/20 ondansetron HCl [Zofran] 4 mg PO Q8H PRN #7 tab 04/25/20 ondansetron 4 mg PO Q6-8H PRN #15 tab 07/19/20 ondansetron 4 mg PO Q6-8H PRN #14 tab 10/14/20 nitrofurantoin monohyd/m-cryst 100 mg PO Q12H 7 Days #14 cap 11/15/20 [Macrobid] phenazopyridine [Pyridium] 200 mg PO TID PRN #6 tab 11/15/20 Allergies Allergy/AdvReac Type Severity Reaction Status Date / Time No Known Allergies Allergy Verified 10/05/20 12:54 [No Known Allergies*] Review of Systems Review of Systems Pertinent positives and negatives as stated in HPI 10 point review of systems is otherwise negative. Physical Exam Vital Signs: Vital Signs: Last Vital Signs Temp 98.7 F 11/18/20 06:10 Pulse 95 11/18/20 07:00 Resp 20 11/18/20 07:00 BP 111/59 L 11/18/20 07:00 Pulse Ox 98 11/18/20 07:00 Body Mass Index 19.7 VITAL SIGNS: Reviewed. GENERAL: Well developed, well nourished, in no acute distress. HEAD: Normocephalic/atraumatic EYES: PERRLA, EOMI NOSE: Nares patent bilateral OROPHARYNX: no oral lesions noted, posterior pharynx clear NECK: Supple, no adenopathy LUNGS: Normal breath sounds. No adventitious sounds or accessory muscle use. SpO2<98> CARDIOVASCULAR: Regular rate and rhythm without noted murmurs ABDOMEN: Soft, non-tender, non-distended with bowel sounds. Course Course Course Narrative: This is a 20-year-old female with history and clinical presentation consistent with patient's cyclical vomiting syndrome. She received a GI cocktail, IV fluids and a combination of Reglan/Benadryl. Review of UA and tests negative and the blood that is noted is secondary to menstrual cycle. On re-evaluation patient has had complete resolution of her symptoms, she requested a GI cocktail, and she will be discharged in stable condition and knows that she needs a follow-up with Dr Eid this morning. MDM - Abdominal Pain Lab Data Labs: Lab Results 11/18/20 11/18/20 Range/Units 06:22 06:36 Urine Color DANYEL Urine Appearance CLOUDY Urine pH 6.5 (5.0-8.0) Ur Specific [place] 1.025 (1.005-1.025) Urine Protein 2+ H (NEG-TRACE) MG/DL Urine Glucose (UA) NEG (NEG) MG/DL Urine Ketones >=80 (NEG) MG/DL Urine Blood 3+ H (NEG) Urine Nitrite NEG (NEG) Ur Leukocyte Esterase NEG (NEG) Urine RBC 5-9 H (0) /HPF Urine WBC 10-14 H (0-4) /HPF Ur Squamous Epith Cells 3+ /LPF Urine Bacteria 1+ /LPF Urine Mucus 1+ /LPF Urine Test NEGATIVE (NEGATIVE) ECG Data Attestation: I personally reviewed and interpreted this ECG as follows: Prior ECG tracings: available for review (11/14/20 no acute changes on comparison) Interpretation: Sinus tachycardia, HR-108, no evidence of acute ischemia, ID/QRS/QTC are within normal limits. Discharge Plan Discharge Clinical Impression: Pelvic congestion syndrome, Cyclical vomiting Patient Disposition: Home, Self-Care Instructions: Cyclic Vomiting Syndrome (ED) Additional Instructions: Please keep your appointment with Gynecology, Dr. Eid, as scheduled. Return to the ER for any acute worsening of your symptoms. Prescriptions: No Action desogestrel-ethinyl estradiol 0.15-0.03 mg tablet 1 tab PO DAILY Qty: 28 RF: 0 ondansetron 4 mg tablet,disintegrating 4 mg PO Q6-8H PRN (Reason: nausea and vomiting) Qty: 14 RF: 0 omeprazole magnesium [Prilosec OTC] 20 mg tablet,delayed release (DR/EC) 20 mg PO BID Qty: 30 RF: 0 ondansetron HCl [Zofran] 4 mg tablet 4 mg PO Q8H PRN (Reason: nausea and vomiting) Qty: 7 RF: 0 ondansetron 4 mg tablet,disintegrating 4 mg PO Q6-8H PRN (Reason: Nausea And Vomiting) Qty: 15 RF: 0 nitrofurantoin monohyd/m-cryst [Macrobid] 100 mg capsule 100 mg PO Q12H 7 Days Qty: 14 RF: 0 phenazopyridine [Pyridium] 200 mg tablet 200 mg PO TID PRN (Reason: pain) Qty: 6 RF: 0 desogestrel-ethinyl estradiol [Apri] 0.15-0.03 mg tablet 1 tab PO DAILY 28 Days Qty: 28 RF: 11 Referrals: Physician,Unknown [Primary Care Provider] - 2 days Roby iEd MD [Physician] - 2 days [facility] Past Medical History Source: nursing notes reviewed Medical History Asthma Migraines Social History Social History Alcohol intake: never Smoking Status: Never smoker Substance Use Type: Marijuana Advance Directives: No Patient : No Sexual orientation: Straight/Heterosexual Gender identity: female
--- NOTE | 2020-11-18 07:04 | PC.NURSE ---
Addendum entered by Ana Alex 11/18/20 07:06: PATIENT ALSO INFORMED RN THAT HER LAST TIME SMOKING MARIJUANA WAS MONDAY. AWARE COULD BE CONTRIBUTING TO PATIENTS SYMPTOMS. Original Note: REPORT TAKEN FORM AKHIL LEW. PATIENT RESTING ON STRETCHER. REPORTS FEELING IMPROVED, REQUESTED DOSE OF LIDOCAINE/MAALOX WHICH SHE REPORTS HELPED HER FEEL BETTER WHEN SHE WAS HERE MONDAY. MD AWARE AND WILL ORDER. PT AWARE SHE WILL BE DC HOME AND IS TO KEEP HER APPOINTMENT TODAY WITH DR BOOTH.
[2020-11-18] MEDS: Lidocaine HCl Viscous 2 % 15 ML SOLUTION 10 ML MUCOUS MEM (07:09)
[2020-11-18] MEDS: Magnesium Hydrox/Alum Hydrox 30 ML ORAL.SUSP PO (07:10)
== END 2020-11-18 07:19 | disposition home or self-care (01) ==
PROVIDERS: Emergency Provider Student in an Organized Health Care Education/Training Program
DX: N94.89 Other specified conditions associated with female genital organs and menstrual cycle (principal); R11.15 Cyclical vomiting syndrome unrelated to migraine; F12.90 Cannabis use, unspecified, uncomplicated; Z79.899 Other long term (current) drug therapy
CPT/HCPCS: 81001; 81025; 87086; 93005; 96365; 96375; 99284; J1200; J2765

== ENCOUNTER 2020-12-07 15:40 | Outpatient (REF) | payer OTHER, SELFPAY ==
[2020-12-08 06:06] LABS: CT PCR NOT DETECTED (Not Detect.); NG PCR NOT DETECTED (Not Detect.)
[2020-12-08 09:46] LABS: BV Int Neg Control Negative (Negative); BV Int Pos Control Positive (Positive)
== END 2020-12-07 15:41 | disposition home or self-care (01) ==
LOC: HO.LNP 15:40
PROVIDERS: Visit Provider Obstetrics & Gynecology
DX: Z11.3 Encounter for screening for infections with a predominantly sexual mode of transmission (principal); B37.3 Candidiasis of vulva and vagina
CPT/HCPCS: 87480; 87491; 87510; 87591; 87660; 99212

== ENCOUNTER 2021-01-06 13:39 | Outpatient (REF) | payer OTHER, SELFPAY ==
[2021-01-07 05:37] LABS: CT PCR NOT DETECTED (Not Detect.); NG PCR NOT DETECTED (Not Detect.)
== END 2021-01-06 13:40 | disposition home or self-care (01) ==
LOC: HO.LAB 13:39
PROVIDERS: Visit Provider Obstetrics & Gynecology
DX: Z01.419 Encounter for gynecological examination (general) (routine) without abnormal findings (principal); Z11.3 Encounter for screening for infections with a predominantly sexual mode of transmission
CPT/HCPCS: 87491; 87591; 88142

== ENCOUNTER → 2021-01-11 15:37 | Outpatient (BNVA) | payer OTHER, SELFPAY | PROVIDERS: Visit Provider Obstetrics & Gynecology | DX: Z30.42 Encounter for surveillance of injectable contraceptive (principal) | CPT/HCPCS: 96372; 99211 ==

== ENCOUNTER → 2021-04-07 11:07 | Outpatient (BNVA) | payer OTHER, SELFPAY | PROVIDERS: Visit Provider Obstetrics & Gynecology | DX: Z30.42 Encounter for surveillance of injectable contraceptive (principal) | CPT/HCPCS: 96372; 99211 ==

== ENCOUNTER 2021-06-29 08:41 | Outpatient (REF) | payer OTHER, SELFPAY | END 2021-06-29 08:42 | disposition home or self-care (01) | LOC: HO.HMGCLDS 08:41 | PROVIDERS: Visit Provider Internal Medicine | DX: Z20.822 Contact with and (suspected) exposure to COVID-19 (principal) | CPT/HCPCS: C9803; U0003; U0005 ==

== ENCOUNTER → 2021-07-07 11:04 | Outpatient (BNVA) | payer OTHER, SELFPAY | PROVIDERS: Visit Provider Obstetrics & Gynecology | DX: Z30.42 Encounter for surveillance of injectable contraceptive (principal) | CPT/HCPCS: 96372; 99211 ==

== ENCOUNTER → 2021-09-29 10:57 | Outpatient (BNVA) | payer OTHER, SELFPAY | PROVIDERS: PCP Internal Medicine; Visit Provider Obstetrics & Gynecology | DX: Z30.42 Encounter for surveillance of injectable contraceptive (principal) | CPT/HCPCS: 96372; 99211 ==

== ENCOUNTER 2021-11-25 10:53 | Outpatient (REF) | payer OTHER, SELFPAY ==
[2021-11-25 11:05] LABS: MANUAL DIFF FLAG NO
[2021-11-25 11:30] LABS: Basophils Percent Auto 0.5 % (0-2); Eosinophils Absolute Auto 0.1 X10*3/uL (0.0-0.4); Eosinophils Percent Auto 2.4 % (0-4); Hematocrit 41.2 % (37.0-47.0); Imm Gran Abs Auto 0.02 X10*3/uL (0.00-0.03); Imm Gran Pct Auto 0.3 % (0.0-0.4); Lymphocytes Absolute Auto 2.4 X10*3/uL (1.2-4.9); Lymphocytes Percent Auto 40.1 % (20-40); Mean Corpuscular Hemoglobin 27.6 pg (27.0-33.0); Mean Corpuscular Volume 81.1 fL (80.0-98.0); Mean Platelet Volume 10.7 fL (9.4-12.3); Monocytes Absolute Auto 0.4 X10*3/uL (0.1-1.2); Neutrophils Absolute Auto 2.9 x10*3/uL (2.0-8.3); Neutrophils Percent Auto 49.7 % (45-73); Platelet Count 272 X10*3/uL (160-400); Red Blood Count 5.08 X10*6/uL (4.20-5.50); Red Cell Distribution Width 12.8 % (11.0-16.0); White Blood Count 5.9 X10*3/uL (4.8-10.8)
[2021-11-25 11:50] LABS: Anion Gap 13 (12-20); Blood Urea Nitrogen 12 mg/dL (9-16); Calcium 9.9 mg/dL (8.4-10.2); Carbon Dioxide 23 mmol/L (22-29); Chloride 108 mmol/L (96-108); Cholesterol 148 mg/dL; Estimated Glomerular Filt Rate > 60; Glucose Fasting 86 mg/dL (60-99); HDL Cholesterol 53 mg/dL; LDL Cholesterol Calculated 87 mg/dl; Potassium 4.7 mmol/L (3.3-5.1); Sodium 139 mmol/L (135-145); Triglycerides 40 mg/dL
[2021-11-25 12:14] LABS: TSH reflex Free T4 0.57 uIU/mL (0.32-4.0)
== END 2021-11-25 10:54 | disposition home or self-care (01) ==
LOC: HO.LAB 10:53
PROVIDERS: PCP Internal Medicine; Visit Provider Nurse Practitioner Family
DX: G43.109 Migraine with aura, not intractable, without status migrainosus (principal); E78.00 Pure hypercholesterolemia, unspecified; I10 Essential (primary) hypertension; Z76.89 Persons encountering health services in other specified circumstances
CPT/HCPCS: 36415; 80048; 80061; 84443; 85025

== ENCOUNTER → 2021-12-21 12:53 | Outpatient (BNVA) | payer OTHER, SELFPAY | PROVIDERS: PCP Internal Medicine; Visit Provider Obstetrics & Gynecology | DX: Z30.42 Encounter for surveillance of injectable contraceptive (principal) | CPT/HCPCS: 96372; 99211 ==

== ENCOUNTER 2022-01-11 14:08 | Outpatient (REF) | payer OTHER, SELFPAY ==
[2022-01-11 18:11] LABS: CT PCR NOT DETECTED (Not Detect.)
[2022-01-11 18:12] LABS: NG PCR NOT DETECTED (Not Detect.)
== END 2022-01-11 14:09 | disposition home or self-care (01) ==
LOC: HO.LAB 14:08
PROVIDERS: Visit Provider Obstetrics & Gynecology
DX: Z11.3 Encounter for screening for infections with a predominantly sexual mode of transmission (principal)
CPT/HCPCS: 87491; 87591

== ENCOUNTER → 2022-03-09 10:50 | Outpatient (BNVA) | payer OTHER, SELFPAY | PROVIDERS: PCP Internal Medicine; Visit Provider Obstetrics & Gynecology | DX: Z30.42 Encounter for surveillance of injectable contraceptive (principal) | CPT/HCPCS: 96372; 99211 ==

== ENCOUNTER 2022-04-04 05:51 | Emergency (ER) | payer OTHER, SELFPAY ==
--- NOTE | ~2022-04-04 | CT_ITS ---
EXAMINATION: CT ABDOMEN AND PELVIS WITH CONTRAST CLINICAL INFORMATION: Flank pain COMPARISON: 11/14/2020 TECHNIQUE: Multidetector volumetric images were obtained from the superior aspect of the liver through the pubic symphysis following administration 85 mL of Omnipaque 350 intravenous contrast. Oral contrast: No This CT examination was performed using dose optimization techniques as appropriate, variously including the following: *Automated exposure control *Adjustment of mA and/or kV according to patient size (this includes techniques or standardized protocols for targeted exams where dose is matched to indication/reason for exam; i.e. extremities or head) *Use of iterative reconstruction technique DLP: 418 mGy-cm FINDINGS: LUNG BASES: The visualized lung bases are unremarkable. LIVER, GALLBLADDER, AND BILIARY TREE: The liver is normal in size, shape, and attenuation. No focal hepatic lesion or biliary ductal dilatation is present. The gallbladder is unremarkable with no evidence of radiopaque gallstones, gallbladder wall thickening, or obvious pericholecystic inflammatory changes. PANCREAS: Unremarkable. SPLEEN: Unremarkable. ADRENAL GLANDS: Unremarkable. KIDNEYS AND URETERS: The kidneys are normal in size, shape, and attenuation. No hydronephrosis, hydroureter, or calculi seen. No perinephric stranding. BLADDER: Unremarkable. GASTROINTESTINAL TRACT: The small and large bowel are unremarkable. The appendix is unremarkable. ABDOMINAL WALL: No significant hernia is appreciated. LYMPH NODES: Normal. VASCULAR: Unremarkable. PELVIC VISCERA: Unremarkable. OSSEOUS STRUCTURES: Unremarkable. CT/CT abdomen pelvis w IV con IMPRESSION: No significant abnormality. Fleischner guidelines were followed.
--- NOTE | ~2022-04-04 | US_ITS ---
EXAMINATION: US PELVIS CLINICAL INFORMATION: Pelvic pain COMPARISON: CT abdomen pelvis same date. TECHNIQUE: Ultrasound of the pelvis is performed using both transabdominal and transvaginal transducers along with Doppler. Transvaginal imaging is performed due to inadequate visualization transabdominally. FINDINGS: Uterus: The uterus is retroverted and retroflexed and measures 6.2 x 3.2 x 4.5 cm. No uterine masses. The double wall endometrial thickness is 4 mm. The uterus is smooth in contour and has normal myometrial echogenicity. No visible fibroid. Adnexa: Both ovaries are visualized. There is normal color flow to the adnexa. There is no ovarian torsion. There is no pelvic ascites or fluid collection. Bilateral periuterine varices incidentally are seen. Right ovary measures 2.7 x 1.4 x 1.3 cm. Left ovary measures 2.9 x 1.4 x 1.4 cm. US/US pelvic and transvaginal IMPRESSION: Unremarkable study. There is normal flow to both ovaries.
--- NOTE | ~2022-04-04 | US_ITS ---
EXAMINATION: US PELVIS CLINICAL INFORMATION: Pelvic pain COMPARISON: CT abdomen pelvis same date. TECHNIQUE: Ultrasound of the pelvis is performed using both transabdominal and transvaginal transducers along with Doppler. Transvaginal imaging is performed due to inadequate visualization transabdominally. FINDINGS: Uterus: The uterus is retroverted and retroflexed and measures 6.2 x 3.2 x 4.5 cm. No uterine masses. The double wall endometrial thickness is 4 mm. The uterus is smooth in contour and has normal myometrial echogenicity. No visible fibroid. Adnexa: Both ovaries are visualized. There is normal color flow to the adnexa. There is no ovarian torsion. There is no pelvic ascites or fluid collection. Bilateral periuterine varices incidentally are seen. Right ovary measures 2.7 x 1.4 x 1.3 cm. Left ovary measures 2.9 x 1.4 x 1.4 cm. US/US pelvic ovarian doppler IMPRESSION: Unremarkable study. There is normal flow to both ovaries.
[2022-04-04 06:02] VITALS: BP 141/74; PULSE 129; RESP 18; TEMP 36.9; O2SAT 97; BMI 25.7
[2022-04-04 06:19] LABS: Basophils Absolute Auto 0.1 X10*3/uL (0.0-0.2); Basophils Percent Auto 0.4 % (0-2); Eosinophils Absolute Auto 0.2 X10*3/uL (0.0-0.4); Hematocrit 40.9 % (37.0-47.0); Hemoglobin 14.6 g/dl (12.0-16.0); Imm Gran Abs Auto 0.07 X10*3/uL (0.00-0.03); Imm Gran Pct Auto 0.4 % (0.0-0.4); Lymphocytes Percent Auto 6.3 % (20-40); MANUAL DIFF FLAG NO; Mean Corpuscular HGB Conc 35.7 g/dl (31.0-35.0); Mean Corpuscular Hemoglobin 27.3 pg (27.0-33.0); Mean Corpuscular Volume 76.4 fL (80.0-98.0); Monocytes Absolute Auto 0.7 X10*3/uL (0.1-1.2); Monocytes Percent Auto 4.4 % (2-11); Neutrophils Percent Auto 87.5 % (45-73); Platelet Count 256 X10*3/uL (160-400); Red Blood Count 5.35 X10*6/uL (4.20-5.50); Red Cell Distribution Width 12.6 % (11.0-16.0)
[2022-04-04 06:32] LABS: COVID-19 Test Negative (Negative)
[2022-04-04 06:36] LABS: Alanine Aminotransferase 11 U/L (0-31); Albumin Level 4.7 g/dL (3.5-5.0); Alkaline Phosphatase 79 U/L (39-117); Anion Gap 17 (12-20); Aspartate Amino Transferase 17 U/L (5-31); Bilirubin Direct 0.3 mg/dL (0.0-0.5); Bilirubin Total 0.8 mg/dL (0.0-1.0); Blood Urea Nitrogen 10 mg/dL (9-16); Calcium 9.5 mg/dL (8.4-10.2); Carbon Dioxide 17 mmol/L (22-29); Chloride 108 mmol/L (96-108); Creatinine Clr Calc Pharmacy 116.5; Estimated Glomerular Filt Rate > 60; Glucose Random 118 mg/dL (60-115); Lipase 10 U/L (8-78); Potassium 3.8 mmol/L (3.3-5.1); Sodium 138 mmol/L (135-145); Total Protein 7.5 g/dL (6.5-8.0)
[2022-04-04 06:47] LABS: IDNOW Serial# 16C4AD1C; Influenza A Negative (Negative); Influenza B2 Negative (Negative)
[2022-04-04 06:56] VITALS: BP 105/53; PULSE 115; RESP 20; O2SAT 99
[2022-04-04 07:11] LABS: Appearance Urine Clear; Color Urine Yellow; Glucose Urine UA Negative (Negative); Leukocyte Esterase Urine Small (1+) (Negative); Nitrite Urine Negative (Negative); Specific Gravity - Urine 1.025 (1.005-1.025); UMIC TRIGGER UACC YES; Urine Blood Negative (Negative); Urine Ketones 80 mg/dL (Negative); Urine Protein Trace mg/dL (Neg-Trace)
[2022-04-04 07:13] LABS: UPreg QC Valid YES; Urine Pregnancy NEGATIVE (NEGATIVE)
[2022-04-04 07:16] LABS: Bacteria Urine 1+ (None Seen); Hyaline Casts Urine 0-2 /LPF (0-2); RBC Urine 0-2 /HPF (0-2); UACC Culture Trigger YES
--- OUTSIDE RECORDS SUMMARY | 2022-04-04 07:28 | XMS_ITS | Continuity of Care Document ---
:2000 Author Organization [facility] Address [address] [address]- Care Team Providers Name Role Phone Rounds Cathie BHARDWAJ Primary Care Physician Encounter [facility] Date(s): 01/05/21 - 02/04/21 [facility] [address] [place] [id number]- Attending Physician: Otilia Peña Admitting Physician: Otilia Peña Referring Physician: AdmtrOtilia Allergies, Adverse Reactions, Alerts Substance Reaction Severity Status NKA Active Medications Albuterol (Eqv-ProAir HFA) 90 mcg/inh inhalation aerosol 0 Refills, Maintenance, 11/18/20 20:05:00 EDT, Partial fill upon patient request if the prescriptionis for a schedule II opioid drug. Start Date: 11/18/20 Status: Orderedcetirizine 10 mg oral tablet 0 Refills, Maintenance, 11/18/20 20:06:00 EDT, Partial fill upon patient request if the prescriptionis for a schedule II opioid drug. Start Date: 11/18/20 Status: OrderedCulturelle [facility] oral capsule 1 capsule, By Mouth, Daily, # 30 capsule, 2 Refills, Maintenance, 12/08/20 12:44:00 EDT, [facility] #[id number], Partial fill upon patient request if the prescription is for a schedule II opioid drug., 1 capsule By Mouth Daily, 160, cm, 12/08/20... Start Date: 12/08/20 Status: OrderedDiflucan 150 mg oral tablet 1 tablet = 150 mg, By Mouth, Once, # 1 tablet, 1 Refills, Soft Stop, 12/08/20 12:43:00 EDT, Tablet, [facility] #[id number], Partial fill upon patient request if the prescription is for a schedule II opioid drug., 160, cm, 12/08/20 11:47:00 EDT, H... Start Date: 12/08/20 Status: Orderedibuprofen 600 mg oral tablet 600 mg, 1, tablet, By Mouth, Every 6 hours, # 40 tablet, Refills 0, Tot. Refills 0, Acute 05/06/21 11:11:00 EST, 11/20/20 11:05:00 EDT, Route to Pharmacy Electronically, [facility], Partial fill upon patient request if the prescription i... Start Date: 11/20/20 Stop Date: 05/06/21 Status: OrderedIsibloom 0.15 mg-0.03 mg oral tablet 0 Refills, Maintenance, 11/18/20 20:06:00 EDT, Partial fill upon patient request if the prescriptionis for a schedule II opioid drug. Start Date: 11/18/20 Status: OrderedLotrisone 0.05%-1% cream 1 application, Topically, 2 times a day, # 45 Gm, 0 Refills, Maintenance, 12/08/20 12:43:00 EDT, Cream, [facility] #[id number], Partial fill upon patient request if the prescription is for a schedule II opioid drug., 1 application Topically 2 larisa... Start Date: 12/08/20 Status: OrderedTylenol 325 mg oral tablet 650 mg, 2, tablet, By Mouth, Every 6 hours, Take 2 tablets every 6 hours as needed for pain, # 30 tablet, Refills 0, Tot. Refills 0, Acute 05/06/21 20:21:00 EST, 11/20/20 11:04:00 EDT, Route to Pharmacy Electronically, [facility], [place]... Start Date: 11/20/20 Stop Date: 05/06/21 Status: Ordered Social History Social History Type Response Smoking Status Never (less than 100 in life time) entered on: 05/04/20 Sex
--- OUTSIDE RECORDS SUMMARY | 2022-04-04 07:28 | XMS_ITS | Continuity of Care Document ---
:2000 Author Organization [facility] Address [address] [place] [address], [address] [place] [id number]- Care Team Providers Name Role Phone Rounds Cathie BHARDWAJ Primary Care Physician Encounter [facility] Date(s): 11/03/20 - 11/10/20 [facility] [address], [address] [place] [id number] [place] Attending Physician: Yolanda BHARDWAJ, Bolivar Meeks Referring Physician: Not on Staff, Referring MD Allergies, Adverse Reactions, Alerts Substance Reaction Severity Status NKA Active Social History Social History Type Response Smoking Status Never (less than 100 in life time) entered on: 05/04/20 Sex
--- OUTSIDE RECORDS SUMMARY | 2022-04-04 07:28 | XMS_ITS | Continuity of Care Document ---
:2000 Author Organization [facility] Address [address] [place] [id number]- Care Team Providers Name Role Phone Rounds Cathie BHARDWAJ Primary Care Physician Encounter [facility] Date(s): 05/04/20 - 05/04/[address] [address] Discharge Disposition: A-D/C Walkout Attending Physician: Not on Staff, Attending MD Admitting Physician: Not on Staff, Admitting MD Referring Physician: Not on Staff, Referring MD Allergies, Adverse Reactions, Alerts Substance Reaction Severity Status NKA Active Vital Signs Most recent to oldest [Reference Range]: 1 Oxygen Saturation [94-100 %] 100 % (05/04/20 5:14 PM) Pulse Rate [55-90 bpm] 86 bpm (05/04/20 5:14 PM) Respiratory Rate [16-30 br/min] 18 br/min (05/04/20 5:14 PM) Mode of Delivery (Oxygen) Room air (05/04/20 5:14 PM) Social History Social History Type Response Smoking Status Never (less than 100 in life time) entered on: 05/04/20 Sex
--- OUTSIDE RECORDS SUMMARY | 2022-04-04 07:28 | XMS_ITS | Continuity of Care Document ---
:2000 Author Organization [facility] Address [address] [place] [address], [address] [place] [id number]- Care Team Providers Name Role Phone Rounds Cathie BHARDWAJ Primary Care Physician [place] [facility] [place] 12[place]03/20 [facility] [address] [place] [address], [address] [place] [id number] Attending Physician: Otilia Peña Admitting Physician: AdmOtilia leyva Referring Physician: Admtr ArGabe Allergies, Adverse Reactions, Alerts Substance Reaction Severity [...] II opioid drug. Start Date: 11/18/20 Status: Orderedibuprofen 600 mg oral tablet 600 mg, 1, tablet, By Mouth, Every 6 hours, # 40 tablet, Refills 0, Tot. Refills 0, Acute 05/06/21 11:11:00 EST, 11/20/20 11:05:00 EDT, Route to Pharmacy Electronically, [facility], Partial fill upon patient request if the prescription i... Start Date: 11/20/20 Stop Date: 05/06/21 Status: OrderedIsibloom 0.15 mg-0.03 mg oral tablet 0 Refills, Maintenance, 11/18/20 20:06:00 EDT, Partial fill upon patient request if the prescriptionis for a schedule II opioid drug. Start Date: 11/18/20 Status: Orderedondansetron 4 mg oral tablet, disintegrating 1 tablet = 4 mg, By Mouth, Every 8 hours, PRN as needed for nausea/vomiting, # 10 tablet, 0 Refills,Acute 05/06/21 11:11:00 EST, 11/20/20 10:58:00 EDT, DIS Tablet, [facility], Partial fill upon patient request if the prescription is for... Start Date: 11/20/20 Stop Date: 05/06/21 Status: Orderedphenazopyridine 200 mg oral tablet Refills 0, Maintenance, 11/18/20 20:06:00 EDT, Partial fill upon patient request if the prescriptionis for a schedule II opioid drug. Start Date: 11/18/20 Status: OrderedTylenol 325 mg oral tablet 650 mg, 2, tablet, By Mouth, Every 6 hours, Take 2 tablets every 6 hours as needed for pain, # 30 tablet, Refills 0, Tot. Refills 0, Acute 05/06/21 20:21:00 EST, 11/20/20 11:04:00 EDT, Route to Pharmacy Electronically, [facility], [place]... Start Date: 11/20/20 Stop Date: 05/06/21 Status: Ordered Social History Social History Type Response Smoking Status Never (less than 100 in life time) entered on: 05/04/20 Sex
--- OUTSIDE RECORDS SUMMARY | 2022-04-04 07:28 | XMS_ITS | Continuity of Care Document ---
:2000 Author Organization [facility] Address [address] [place] [id number]- Care Team Providers Name Role Phone Rounds Cathie BHARDWAJ Primary Care Physician Encounter [facility] Date(s): 11/15/20 - 11/16/[address] [phone]- Discharge Disposition: A-D/C Walkout Attending Physician: Not on Staff, Attending MD Admitting Physician: Not on Staff, Admitting MD Referring Physician: Not on Staff, Referring MD Allergies, Adverse Reactions, Alerts Substance Reaction Severity Status NKA Active Vital Signs Most recent to oldest [Reference Range]: 1 Oxygen Saturation [94-100 %] 100 % (11/15/20 11:29 PM) Pulse Rate [55-90 bpm] 100 bpm *H* (11/15/20 11:29 PM) Blood Pressure [90-138/55-84 mm Hg] 119/57 mm Hg (11/15/20 11:29 PM) Respiratory Rate [16-30 br/min] 18 br/min (11/15/20 11:29 PM) Temperature [96.8-100.4 DegF] 98.8 DegF (11/15/20 11:29 PM) Mode of Delivery (Oxygen) Room air (11/15/20 11:29 PM) Blood pressure sites Arm, right (11/15/20 11:29 PM) Temperature Route Oral (11/15/20 11:29 PM) Social History Social History Type Response Smoking Status Never (less than 100 in life time) entered on: 05/04/20 Sex
--- OUTSIDE RECORDS SUMMARY | 2022-04-04 07:28 | XMS_ITS | Continuity of Care Document ---
:2000 Author Organization [facility] Address [address] [place] [id number]- Care Team Providers Name Role Phone Rounds Cathie BHARDWAJ Primary Care Phys[place] [facility] [place] 11[place]21/[address] [id number] Discharge Disposition: A-D/C Home Attending Physician: Delilah Justin MD Admitting Physician: Pattie Yates MD Referring Physician: Not on Staff, Referring [...] II opioid drug. Start Date: 11/18/20 Status: Ordereddoxycycline hyclate 100 mg oral tablet 1 tablet = 100 mg, By Mouth, Every 12 hours, for 11 days, Take one tablet tonight with meal and thentwice a day (with breakfast and dinner) for 11 days, # 23 tablet, 0 Refills, Acute 12/02/20 6:17:45 EDT, 11/20/20 11:02:00 EDT, Tablet, [facility] Start Date: 11/20/20 Stop Date: 12/02/20 Status: Orderedibuprofen 600 mg oral tablet 600 mg, 1, tablet, By Mouth, Every 6 hours, # 40 tablet, Refills 0, Tot. Refills 0, Acute 05/06/21 11:11:00 EST, 11/20/20 11:05:00 EDT, Route to Pharmacy Electronically, [facility], Partial fill upon patient request if the prescription i... Start Date: 11/20/20 Stop Date: 05/06/21 Status: Orderedibuprofen 600 mg oral tablet 600 mg, Tablet, By Mouth, 3 times a day, PRN for Pain , Mild, Routine, 11/20/20 13:47:00 EDT Start Date: 11/20/20 Stop Date: 11/22/20 Status: DiscontinuedIsibloom 0.15 mg-0.03 mg oral tablet 0 Refills, Maintenance, 11/18/20 20:06:00 EDT, Partial fill upon patient request if the prescriptionis for a schedule II opioid drug. Start Date: 11/18/20 Status: OrderedmetroNIDAZOLE 500 mg oral tablet 1 tablet = 500 mg, By Mouth, Every 12 hours, for 11 days, Take one tablet with dinner tonight and then twice a day (with breakfast and dinner) for 11 days after, # 23 tablet, 0 Refills, Acute 12/02/20 6:18:12 EDT, 11/20/20 11:03:00 EDT, Tablet, [place]... Start Date: 11/20/20 Stop Date: 12/02/20 Status: Orderedondansetron 4 mg oral tablet, disintegrating 1 tablet = 4 mg, By Mouth, Every 8 hours, PRN as needed for nausea/vomiting, # 10 tablet, 0 Refills,Acute 05/06/21 11:11:00 EST, 11/20/20 10:58:00 EDT, DIS Tablet, [facility] 3, Partial fill upon patient request if [...] 11/20/20 11:04:00 EDT, Route to Pharmacy Electronically, [facility]. Start Date: 11/20/20 Stop Date: 05/06/21 Status: OrderedTylenol 325 mg oral tablet 650 mg, Tablet, By Mouth, 11/21/20 11:00:00 EDT Start Date: 11/21/20 Stop Date: 11/21/20 Status: Completed Results Orders for Microbiology Reports Name Date Wet Prep 11/18/20 Microbiology Reports TEST:Wet Prep STATUS:Auth (Verified) BODY SITE: SOURCE:VAGINA COLLECTED DATE/TIME:11/18/20 3:37 PMWet Prep SPECIMEN DESCRIPTION : VAGINAL SPECIMEN SPECIAL REQUESTS : NONE DIRECT EXAM : 1+ WHITE BLOOD CELLS 1+ CLUE CELLS NO YEAST OBSERVED NO TRICHOMONAS OBSERVED REPORT STATUS : FINAL 11/18/2020 Vital Signs Most recent to oldest 1 2 3 [Reference Range]: Height 160 cm 160 cm 160 cm (11/21/20 12:45 PM) (11/21/20 8:33 AM) (11/21/20 4: 40 AM) Weight 52.5 kg (11/18/20 10:04 PM) Oxygen Saturation [94-100 %] 99 % 100 % 100 % (11/21/20 12:45 PM) (11/21/20 8:33 AM) (11/21/20 4: 40 AM) Pulse Rate [55-90 bpm] 74 bpm 82 bpm 72 bpm (11/21/20 12:45 PM) (11/21/20 8:33 AM) (11/21/20 4: 40 AM) Body Mass Index [18.5-24.99] 20.51 (11/18/20 10:04 PM) Blood Pressure [90-138/55-84 124/66 mm Hg 116/72 mm Hg 108 /53 mm Hg mm Hg] (11/21/20 12:45 PM) (11/21/20 8:33 AM) (11/21/20 4: 40 AM) Respiratory Rate [16-30 20 br/min 18 br/min 16 br/mi n br/min] (11/21/20 12:14 PM) (11/21/20 8:33 AM) (11/21/20 5: 01 AM) Temperature [96.8-100.4 DegF] 98.5 DegF 97.7 DegF 98 .2 DegF (11/21/20 12:45 PM) (11/21/20 8:33 AM) (11/21/20 4: 40 AM) Mode of Delivery (Oxygen) Room air Room air Room a ir (11/21/20 12:45 PM) (11/21/20 8:33 AM) (11/21/20 4: 40 AM) Blood pressure sites Arm, right Arm, right Arm, right (11/21/20 12:45 PM) (11/21/20 8:33 AM) (11/21/20 4: 40 AM) Temperature Route Oral Oral Oral (11/21/20 12:45 PM) (11/21/20 8:33 AM) (11/21/20 4: 40 AM) Dry Weight 52.5 kg (11/18/20 10:04 PM) Weight Obtained Via Standing scale (11/18/20 10:04 PM) Dry Weight Obtained Via Standing scale (11/18/20 10:04 PM) Social History Social History Type Response Smoking Status Never (less than 100 in life time) entered on: 05/04/20 Sex
[2022-04-04] MEDS: 0.9 % Sodium Chloride 2,000 ML 999 ML IV (07:42)
[2022-04-04] MEDS: ondansetron HCL 4 MG/2 ML VIAL IVPUSH (07:43)
[2022-04-04] MEDS: Ketorolac Tromethamine 30 MG/ML VIAL 15 MG IVPUSH (07:43)
--- NOTE | 2022-04-04 07:56 | ED_ITS ---
HPI - General Adult General Chief complaint: General Medical Stated complaint: n/v Time Seen by Provider: 04/04/22 07:02 Source: patient and family Mode of arrival: ambulatory History of Present Illness HPI narrative: 21-year-old female without significant past medical history awoke at 01:00 with severe lower back/abdominal/pelvic pain and denies any vaginal discharge or urinary pain/ burning / frequency. She also denies any history of kidney stones but states that with the pain she has been very nauseous with vomiting as well as having hot flashes . She denies any COVID-19 exposure, sore throat, shortness of breath or chest pain. Related Data Home Medications Medication Instructions Recorded Confirmed loratadine 10 mg tablet (Claritin) 10 mg PO DAILY 11/19/21 11/19/21 Previous Rx's Medication Instructions Recorded acetaminophen 500 mg tablet 500 mg PO Q6H PRN pain #30 tabs 02/25/22 ibuprofen 600 mg tablet 600 mg PO Q6-8H PRN pain #30 tabs 02/25/22 medroxyprogesterone 150 mg/mL 150 mg IM [id number] 3 months #1 mL 03/08/22 intramuscular suspension (Depo-Provera) levofloxacin 750 mg tablet 750 mg PO DAILY 7 days #7 tabs 04/04/22 ondansetron 4 mg disintegrating 4 mg PO Q8H PRN nausea and 04/04/22 tablet vomiting #7 tabs Allergies Allergy/AdvReac Type Severity Reaction Status Date / Time No Known Allergies Allergy Verified 01/11/22 13:50 [No Known Allergies*] Review of Systems Review of Systems: Pertinent positives and negatives as stated in HPI 10 point review of systems is otherwise negative. [facility] Past Medical History Source: nursing notes reviewed Medical History Asthma Migraine with aura Family History Family History Paternal Grandmother Breast CA Mother Crohn disease Father Migraine Social History Social History Housing: Apartment Alcohol intake: never Patient Tobacco Use Status: Never used Tobacco Substance Use Type: Marijuana Advance Directives: No Advance Directives Information Provided: No service: No Current occupational status: employed Current occupation: [employer] Sexual orientation: Straight/Heterosexual Gender identity: Female Cognitive needs: No Hearing needs: No Vision needs: No Physical Exam ED Vital Signs: Vital Signs - 24 hr 04/04/22 06:02 04/04/22 06:56 Temperature 98.4 F Pulse Rate 129 H 115 H Respiratory Rate 18 20 Blood Pressure 141/74 H 105/53 L Pulse Oximetry 97 99 Oxygen Delivery Method Room Air Room Air BMI result Body Mass Index 25.7 VITAL SIGNS: Reviewed. GENERAL: Well developed, well nourished, in Moderate distress. HEAD: Normocephalic/atraumatic EYES: PERRLA, EOMI EARS: Ext canals without abnormality, TMs non-bulging and non-erythematous NOSE: Nares patent bilateral OROPHARYNX: no oral lesions noted, posterior pharynx clear and non-erythematous without noted tonsillar enlargement/erythema/exudates NECK: Supple, no adenopathy LUNGS: Normal breath sounds. No adventitious sounds or accessory muscle use. SpO2<97> CARDIOVASCULAR: Regular rate and rhythm without noted murmurs, ABDOMEN: Soft, diffuse abdominal discomfort, non-distended with bowel sounds. BACK: patient complaint of bilateral lower back pain MUSCULOSKELETAL: No tenderness, deformities, or effusions noted on gross inspection. EXTREMITIES: No cyanosis, clubbing or edema. SKIN: Inspection of the skin reveals no rashes NEUROLOGIC: Alert and oriented x 4. Strength and sensation to light touch were grossly intact x 4. Course Course Course Narrative: 21-year-old female with history and clinical presentation suggestive of possible renal colic but will evaluate and rule out ectopic, ovarian torsion, ruptured ovarian cyst, pyelonephritis, appendicitis. Although there is a noted leukocytosis on review of investigations this is felt to be stress/ reactive in nature as there is low clinical suspicion for appendicitis/ cholecystitis/pyelonephritis. Patient received IV fluids, pain medication, antiemetic. Review of all investigations negative for acute findings, no evidence of ectopic, ovarian torsion, appendicitis, or kidney stone. There is still the possibility of a pyelonephritis although not appreciated on CT scan, as there are white blood cells as well as leukocyte esterase positivity. She clinically meets criteria for pyelonephritis. Patient is tolerating oral intake, received initial antibiotics he will be discharged on remaining course. Medical Decision Making Lab Data Result diagrams: 04/04/22 06:11 04/04/22 06:11 Labs: Lab Results 04/04/22 04/04/22 04/04/22 Range/Units 06:11 06:11 06:11 WBC 16.0 H (4.8-10.8) X10*3/uL RBC 5.35 (4.20-5.50) X10*6/uL Hgb 14.6 (12.0-16.0) g/dl Hct 40.9 (37.0-47.0) % MCV 76.4 L (80.0-98.0) fL MCH 27.3 (27.0-33.0) pg MCHC 35.7 H (31.0-35.0) g/dl RDW 12.6 (11.0-16.0) % Plt Count 256 (160-400) X10*3/uL MPV 10.0 (9.4-12.3) fL Immature Gran % (Auto) 0.4 (0.0-0.4) % Neut % (Auto) 87.5 H (45-73) % Lymph % (Auto) 6.3 L (20-40) % [place] % (Auto) 4.4 (2-11) % Eos % (Auto) 1.0 (0-4) % Baso % (Auto) 0.4 (0-2) % Lymph # (Auto) 1.0 L (1.2-4.9) X10*3/uL [place] # (Auto) 0.7 (0.1-1.2) X10*3/uL Eos # (Auto) 0.2 (0.0-0.4) X10*3/uL Baso # (Auto) 0.1 (0.0-0.2) X10*3/uL Abs Immat Gran (auto) 0.07 H (0.00-0.03) X10*3/uL Absolute Neuts (auto) 14.0 H (2.0-8.3) x10*3/uL Absolute Nucleated RBC 0.000 (0.0-0.012) X10*3/uL Nucleated RBC % (auto) 0.0 (0.0-0.2) /100WBC Sodium 138 (135-145) mmol/L Potassium 3.8 (3.3-5.1) mmol/L Chloride 108 (96-108) mmol/L Carbon Dioxide 17 L (22-29) mmol/L Anion Gap 17 (12-20) BUN 10 (9-16) mg/dL Creatinine 0.69 (0.5-1.4) mg/dL Estim Creat Clear Calc 116.5 Estimated GFR > 60 Random Glucose 118 H (60-115) mg/dL Calcium 9.5 (8.4-10.2) mg/dL Total Bilirubin 0.8 (0.0-1.0) mg/dL Direct Bilirubin 0.3 (0.0-0.5) mg/dL AST 17 (5-31) U/L ALT 11 (0-31) U/L Alkaline Phosphatase 79 D (39-117) U/L Total Protein 7.5 (6.5-8.0) g/dL Albumin 4.7 (3.5-5.0) g/dL Lipase 10 (8-78) U/L Urine Color Urine Appearance Urine pH (5.0-9.0) Ur Specific [place] (1.005-1.025) Urine Protein (Neg-Trace) mg/dL Urine Glucose (UA) (Negative) mg/dL Urine Ketones (Negative) mg/dL Urine Blood (Negative) Urine Nitrite (Negative) Ur Leukocyte Esterase (Negative) Urine RBC (0-2) /HPF Urine WBC (0-5) /HPF Ur Squamous Epith Cells (0-2) /HPF Urine Bacteria (None Seen) Hyaline Casts (0-2) /LPF Urine Test (NEGATIVE) COVID-19 (BELEM) (Negative) COVID-19 Clin Com Influenza Type A (EDEL) Negative (Negative) Influenza Type B (EDEL) Negative (Negative) Influenza A & B Note See Note 04/04/22 04/04/22 04/04/22 Range/Units 06:11 07:01 07:01 WBC (4.8-10.8) X10*3/uL RBC (4.20-5.50) X10*6/uL Hgb (12.0-16.0) g/dl Hct (37.0-47.0) % MCV (80.0-98.0) fL MCH (27.0-33.0) pg MCHC (31.0-35.0) g/dl RDW (11.0-16.0) % Plt Count (160-400) X10*3/uL MPV (9.4-12.3) fL Immature Gran % (Auto) (0.0-0.4) % Neut % (Auto) (45-73) % Lymph % (Auto) (20-40) % [place] % (Auto) (2-11) % Eos % (Auto) (0-4) % Baso % (Auto) (0-2) % Lymph # (Auto) (1.2-4.9) X10*3/uL [place] # (Auto) (0.1-1.2) X10*3/uL Eos # (Auto) (0.0-0.4) X10*3/uL Baso # (Auto) (0.0-0.2) X10*3/uL Abs Immat Gran (auto) (0.00-0.03) X10*3/uL Absolute Neuts (auto) (2.0-8.3) x10*3/uL Absolute Nucleated RBC (0.0-0.012) X10*3/uL Nucleated RBC % (auto) (0.0-0.2) /100WBC Sodium (135-145) mmol/L Potassium (3.3-5.1) mmol/L Chloride (96-108) mmol/L Carbon Dioxide (22-29) mmol/L Anion Gap (12-20) BUN (9-16) mg/dL Creatinine (0.5-1.4) mg/dL Estim Creat Clear Calc Estimated GFR Random Glucose (60-115) mg/dL Calcium (8.4-10.2) mg/dL Total Bilirubin (0.0-1.0) mg/dL Direct Bilirubin (0.0-0.5) mg/dL AST (5-31) U/L ALT (0-31) U/L Alkaline Phosphatase (39-117) U/L Total Protein (6.5-8.0) g/dL Albumin (3.5-5.0) g/dL Lipase (8-78) U/L Urine Color Yellow Urine Appearance Clear Urine pH 6.0 (5.0-9.0) Ur Specific [place] 1.025 (1.005-1.025) Urine Protein Trace (Neg-Trace) mg/dL Urine Glucose (UA) Negative (Negative) mg/dL Urine Ketones 80 (Negative) mg/dL Urine Blood Negative (Negative) Urine Nitrite Negative (Negative) Ur Leukocyte Esterase Small (1+) H (Negative) Urine RBC 0-2 (0-2) /HPF Urine WBC 6-10 H (0-5) /HPF Ur Squamous Epith Cells 11-20 (0-2) /HPF Urine Bacteria 1+ (None Seen) Hyaline Casts 0-2 (0-2) /LPF Urine Test NEGATIVE (NEGATIVE) COVID-19 (BELEM) Negative (Negative) COVID-19 Clin Com See Note Influenza Type A (EDEL) (Negative) Influenza Type B (EDEL) (Negative) Influenza A & B Note Discharge Plan Discharge Clinical Impression: Pyelonephritis Patient Disposition: Home, Self-Care Instructions: Kidney Infection (ED) Additional Instructions: 1. Recommend [id number] Tylenol/ ibuprofen as needed for pain control. 2. Complete the entire course of antibiotics as ordered. 3. Follow-up with your primary care provider next 2-3 days. Return to the ER for worsening symptoms. Prescriptions: New levofloxacin 750 mg tablet 750 mg PO DAILY 7 Days Qty: 7 0RF ondansetron 4 mg tablet,disintegrating 4 mg PO Q8H PRN (Reason: nausea and vomiting) Qty: 7 0RF No Action ibuprofen 600 mg tablet 600 mg PO Q6-8H PRN (Reason: pain) Qty: 30 0RF acetaminophen 500 mg tablet 500 mg PO Q6H PRN (Reason: pain) Qty: 30 0RF medroxyprogesterone [Depo-Provera] 150 mg/mL suspension 150 mg IM [id number] 90 Days Qty: 1 3RF loratadine [Claritin] 10 mg tablet 10 mg PO DAILY Referrals: Po,Neel Henry MD [Primary Care Provider] - Stand Alone Forms: Work/School Release
[2022-04-04] MEDS: iohexoL 350 MG/ML 100 ML INFUS..BTL 85 ML IV (08:05)
[2022-04-04] MEDS: cefTRIAXone sodium 1 GM in 0.9 % Sodium Chloride 50 ML IV (10:15)
== END 2022-04-04 10:38 | disposition home or self-care (01) ==
PROVIDERS: Emergency Provider Student in an Organized Health Care Education/Training Program; PCP Internal Medicine
DX: N12 Tubulo-interstitial nephritis, not specified as acute or chronic (principal); Z20.822 Contact with and (suspected) exposure to COVID-19
CPT/HCPCS: 74177; 76830; 76856; 80053; 81001; 81025; 82248; 83690; 85025; 87086; 87502; 87635; 93975; 96361; 96374; 96375; 99284; J0696; J1885; J2405; Q9967

== ENCOUNTER 2022-04-22 08:27 | Outpatient (REF) | payer OTHER, SELFPAY ==
--- NOTE | ~2022-04-22 | XR_ITS ---
EXAMINATION: XR CHEST CLINICAL INFORMATION: Cough COMPARISON: Previous chest x-ray April 2020 TECHNIQUE: 2 views of the chest were obtained. FINDINGS: No significant abnormality is noted involving the heart, lungs, mediastinum, bony thorax or soft tissues. XR/XR chest 2V IMPRESSION: Unremarkable examination.
--- NOTE | ~2022-04-22 | XR_ITS ---
EXAMINATION: XR HIP, RIGHT CLINICAL INFORMATION: Pain COMPARISON: None TECHNIQUE: Two views of the right hip. FINDINGS: Bones and soft tissues are normal. No fracture. Alignment is anatomic. Hip joint space is maintained. XR/XR hip RT min 2V IMPRESSION: No osseous changes to explain patient's pain symptoms.
== END 2022-04-22 08:28 | disposition home or self-care (01) ==
LOC: HO.XRAY 08:27
PROVIDERS: PCP Internal Medicine; Visit Provider Nurse Practitioner Family
DX: R05.9 Cough, unspecified (principal); M25.551 Pain in right hip
CPT/HCPCS: 71046; 73502

== ENCOUNTER → 2022-05-30 10:59 | Outpatient (BNVA) | payer OTHER, SELFPAY | PROVIDERS: PCP Internal Medicine; Visit Provider Obstetrics & Gynecology | DX: Z30.42 Encounter for surveillance of injectable contraceptive (principal) | CPT/HCPCS: 96372; 99211 ==

== ENCOUNTER → 2022-08-22 10:57 | Outpatient (BNVA) | payer OTHER, SELFPAY | PROVIDERS: PCP Internal Medicine; Visit Provider Obstetrics & Gynecology | DX: Z30.42 Encounter for surveillance of injectable contraceptive (principal) | CPT/HCPCS: 96372; 99211 ==

== ENCOUNTER 2022-09-29 08:16 | Emergency (ER) | payer OTHER, SELFPAY ==
--- NOTE | ~2022-09-29 | CT_ITS ---
EXAMINATION: CT ABDOMEN AND PELVIS WITH CONTRAST CLINICAL INFORMATION: Abdominal pain. COMPARISON: 04/04/2022 TECHNIQUE: Multidetector volumetric images were obtained from the superior aspect of the liver through the pubic symphysis following administration 85 mL of Omnipaque 350 intravenous contrast. Sagittal and coronal reformatted images were obtained on the technologist's workstation. This CT examination was performed using dose optimization techniques as appropriate, variously including the following: *Automated exposure control *Adjustment of mA and/or kV according to patient size (this includes techniques or standardized protocols for targeted exams where dose is matched to indication/reason for exam; i.e. extremities or head) *Use of iterative reconstruction technique DLP: 397 mGy-cm FINDINGS: LUNG BASES: Normal. No pulmonary consolidation or pleural effusion. LIVER: The liver has normal size, shape, and attenuation. No evidence of liver mass. GALLBLADDER AND BILIARY TREE: Gallbladder is without radiopaque stones, wall thickening or pericholecystic fluid. No dilated bile ducts. PANCREAS: Normal. No edema, pancreatic ductal dilatation or mass. SPLEEN: Normal. ADRENAL GLANDS: Normal. KIDNEYS AND URETERS: The kidneys have normal size and cortical thickness. No perinephric edema or fluid collection. No urolithiasis or hydroureteronephrosis. BLADDER: Normal. No calculi or wall thickening. BOWEL AND PERITONEUM: Stomach is unremarkable. No dilated loops of bowel. The appendix is normal. No bowel wall thickening or mesenteric fat stranding. No free fluid or pneumoperitoneum. ABDOMINAL WALL: Normal. VASCULATURE: Abdominal aorta is normal in size and its branches are widely patent. Inferior vena cava is normal. The right and left ovarian veins and parauterine and myometrial veins are chronically dilated. No venous thrombosis. LYMPH NODES: No pathologic sized lymph nodes in the abdomen or pelvis. No inguinal lymphadenopathy. PELVIC VISCERA: The uterus has a retroverted appearance. No uterine or adnexal mass. MUSCULOSKELETAL: Unremarkable. CT/CT abdomen pelvis w IV con IMPRESSION: * No acute imaging abnormalities in the abdomen or pelvis compared to 04/04/2022. * No renal stones or hydronephrosis. * The gonadal, parauterine and myometrial veins are chronically dilated. Note that in some patients, dilated veins can be a clinically insignificant imaging observation. However, dilated veins can also be a manifestation of venous valve incompetence, venous reflux and pelvic venous congestion syndrome in which patient's can have chronic pelvic pain.
--- NOTE | ~2022-09-29 | US_ITS ---
EXAMINATION: US PELVIS CLINICAL INFORMATION: Abdominal and pelvic pain COMPARISON: April 04, 2022 and November 16, 2020 TECHNIQUE: Ultrasound of the pelvis is performed using both transabdominal and transvaginal transducers along with Doppler. Transvaginal imaging is performed due to inadequate visualization transabdominally. FINDINGS: Uterus: The uterus is retroverted and measures 6.4 x 3.1 x 3.1 cm. The double wall endometrial thickness is 0.4 mm. The uterus is smooth in contour and has normal myometrial echogenicity. No visible fibroid. Adnexa: Both ovaries are visualized. There is normal color flow to the adnexa. There is no ovarian torsion. There is no pelvic ascites or fluid collection. Right ovary measures 3.9 x 1.2 x 1.2 cm. Volume of 3 mL. Prominent adnexal and uterine vessels present. Left ovary measures 2.6 x 1.2 x 1.3 cm. Volume of 2.1. Prominent adnexal and uterine vessels. No fluid within the cul-de-sac. US/US pelvic and transvaginal IMPRESSION: No significant pelvic abnormality appreciated.
[2022-09-29 08:22] VITALS: BP 116/63; PULSE 71; RESP 18; TEMP 36.6; O2SAT 99; BMI 24.7
[2022-09-29 08:45] LABS: Hemoglobin 14.1 g/dl (12.0-16.0); Mean Corpuscular HGB Conc 34.4 g/dl (31.0-35.0); Mean Corpuscular Hemoglobin 27.2 pg (27.0-33.0); Mean Platelet Volume 10.3 fL (9.4-12.3); Platelet Count 268 X10*3/uL (160-400); Red Blood Count 5.19 X10*6/uL (4.20-5.50); Red Cell Distribution Width 12.9 % (11.0-16.0); White Blood Count 6.3 X10*3/uL (4.8-10.8)
[2022-09-29 08:47] VITALS: BP 118/75; PULSE 77; RESP 20; TEMP 36.9; O2SAT 98
[2022-09-29 09:01] LABS: Appearance Urine Clear; Color Urine Dark Yellow; Glucose Urine UA Negative (Negative); Leukocyte Esterase Urine Trace (Negative); Nitrite Urine Negative (Negative); PH 5.5 (5.0-9.0); Specific Gravity - Urine 1.025 (1.005-1.025); UMIC TRIGGER UACC YES; UPreg QC Valid YES; Urine Blood Negative (Negative); Urine Ketones Trace mg/dL (Negative); Urine Pregnancy NEGATIVE (NEGATIVE); Urine Protein Trace mg/dL (Neg-Trace)
[2022-09-29 09:05] LABS: Anion Gap 12 (12-20); Blood Urea Nitrogen 9 mg/dL (9-16); Calcium 9.2 mg/dL (8.4-10.2); Carbon Dioxide 21 mmol/L (22-29); Chloride 113 mmol/L (96-108); Creatinine Clr Calc Pharmacy 113.7; Estimated Glomerular Filt Rate > 60; Glucose Random 102 mg/dL (60-115); Potassium 3.9 mmol/L (3.3-5.1); Sodium 142 mmol/L (135-145)
[2022-09-29 09:06] LABS: Bacteria Urine None Seen (None Seen); RBC Urine 0-2 /HPF (0-2); WBC Urine 0-5 /HPF (0-5)
[2022-09-29 09:06] LABS: IDNOW Serial# 08D9AD1C
[2022-09-29 09:07] LABS: COVID-19 Test Negative (Negative)
--- NOTE | 2022-09-29 09:23 | ED.GENADULT ---
HPI - General Adult General Chief complaint: Abdominal Pain Stated complaint: abd and pelvic pain Time Seen by Provider: 09/29/22 08:46 Source: patient, RN notes reviewed and old records reviewed Mode of arrival: ambulatory History of Present Illness HPI narrative: 21-year-old female with past medical history of migraine headaches, asthma, ovarian cysts is here today for complaining of diffuse abdominal pain with loose stools for the past week or so. Patient has a family history of Crohn's disease. Patient's mother has a Crohn's disease and her aunt has Crohn's/colitis. Patient reports nausea no vomiting. 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 Has been seen by OBGYN on regular basis. Patient denies any fever or chills. Denies urinary frequency, pain or burning. Onset (ago): week(s) Location: abdomen Related Data Previous Rx's Medication Instructions Recorded acetaminophen 500 mg tablet 500 mg PO Q6H PRN pain #30 tabs 02/25/22 ibuprofen 600 mg tablet 600 mg PO Q6-8H PRN pain #30 tabs 02/25/22 medroxyprogesterone 150 mg/mL 150 mg IM [id number] 3 months #1 mL 03/08/22 intramuscular suspension (Depo-Provera) ondansetron 4 mg disintegrating 4 mg PO Q8H PRN nausea and 04/04/22 tablet vomiting #7 tabs albuterol sulfate 90 mcg/actuation 2 puff inhalation Q4-6H PRN 04/21/22 aerosol inhaler shortness of breath or wheezing #6.7 grams fexofenadine 180 mg tablet 180 mg PO DAILY #30 tabs 08/26/22 (Samantha Allergy) ibuprofen 600 mg tablet 600 mg PO Q8H PRN pain #20 tabs 09/29/22 Allergies Allergy/AdvReac Type Severity Reaction Status Date / Time Seasonal Allergies Allergy Intermediate Itchy Eyes Verified 04/21/22 11:14 Review of Systems Review of Systems: Constitutional : No Weight loss, No Fever, No Chills, No Night Sweats, No Fatigue, No Malaise ENT/Mouth : No Hearing loss, No Ear Pain, No Nasal Congestion, No Sinus Pain, No Hoarseness, No sore throat, No Rhinorrhea, No Swallowing Difficulty Eyes: No Eye Pain, No Swelling, No Redness, No Foreign Body, No Discharge, No Vision Changes Cardiovascular : No Chest Pain, No SOB, No Dyspnea on Exertion, No Orthopnea, No Edema, No Palpitations Respiratory : No Cough, No Sputum, No Wheezing, No Smoke Exposure, No Dyspnea Gastrointestinal : Nausea, No Vomiting, Diarrhea, No Constipation, abdominal Pain, No Hematochezia, No Melena Genitourinary : no irregular bleeding, No Dysuria, No Urinary Frequency, No Hematuria, No Urinary Incontinence, No Urgency, No Flank Pain, No Urinary Flow Changes, No Hesitancy Musculoskeletal : No joint pain, No Myalgias, No Joint Swelling Skin : No Skin Lesions, No rash Neuro : No Weakness, No Numbness, No Paresthesias, No Loss of Consciousness, No Dizziness, No Headache Psych : No Anxiety/Panic, No Depression, No SI/HI/AH/VH, No Social Issues, Heme/Lymph: No Bruising, No Bleeding,No Lymphadenopathy Endocrine : No Polyuria, No Polydipsia, No Temperature Intolerance [facility] Past Medical History Medical History (Updated 09/29/22 @ 17:40 by CHAVA Keller-) Anxiety and depression Asthma Cough Cough due to LYNN inhibitor Migraine with aura Seasonal allergies Family History Family History (Updated 04/21/22 @ 11:33 by CHAVA Ospina) Paternal Grandmother Breast CA Mother Crohn disease Father Migraine Brother Bipolar 1 disorder Maternal Grandmother Heart disease Maternal Aunt Colon cancer Social History Social History Housing: Apartment Alcohol intake: never Patient Tobacco Use Status: Never used Tobacco Smoked in Last 30 Days: No Use of substances other than those prescribed or required for medical reasons: No Substance Use Type: Marijuana Advance Directives: No Advance Directives Information Provided: No service: No Current occupational status: employed 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 Sexual orientation: Straight/Heterosexual Gender identity: Female Cognitive needs: No Hearing needs: No Vision needs: No Physical Exam ED Vital Signs: Vital Signs - 24 hr 09/29/22 08:22 09/29/22 08:47 09/29/22 09:49 Temperature 97.8 F 98.4 F 98.7 F Pulse Rate 71 77 71 Respiratory Rate 18 20 18 Blood Pressure 116/63 118/75 110/64 Pulse Oximetry 99 98 98 Oxygen Delivery Method Room Air Room Air Room Air 04/06/23 12:05 09/29/22 14:17 09/29/22 17:39 Temperature 98.2 F 98.2 F 98.7 F Pulse Rate 73 70 69 Respiratory Rate 18 18 18 Blood Pressure 108/56 L 117/69 108/63 Pulse Oximetry 99 98 100 Oxygen Delivery Method Room Air Room Air Room Air BMI result Body Mass Index 24.7 Const Other: Physical assessment Appearance: Alert. Oriented X3. No acute distress.?? Head: Normal external exam. Normocephalic. Atraumatic.? No Mitchell signs noted. No raccoon eyes noted Eyes: PERRLA. EOMI. Conjunctiva and sclera normal. Eyelids normal.?? ENT: EAC normal. TM's Normal. Pharynx normal. Uvula midline. Moist mucous membranes. ? No trismus noted.? No drooling noted.? No muffled voice noted. Neck: Normal inspection. Neck supple. FROM. No adenopathy. Thyroid Normal. No meningeal signs. No neck mass noted. CVS: Normal heart rate and rhythm. Heart sound normal. No murmurs noted. Pulses normal throughout. Respiratory: No respiratory distress. Painless inspiration. Breath sounds normal. No wheezes/rales/rhonchi noted. Chest nontender. ? No accessory muscle usage noted or decreased air movement noted. Abdomen: Soft and nontender. Bowel sounds normal in all 4 quadrants. No distention noted.? No organomegaly noted.? No visible injury noted. Back:? No CVA tenderness.? Full range of motion noted. Skin: Skin warm and dry.? Normal skin color.? Normal skin turgor. No rashes/lesions/lacerations noted. Extremities: No lower extremity edema. ? Extremities exhibit normal range of motion.? Extremities nontender. Neuro: Oriented X 3.? No motor deficit.? No sensory deficit.? Reflexes normal. Course Course Course Narrative: 21-year-old female with past medical history of migraine headaches, asthma, ovarian cysts is here today for complaining of diffuse abdominal pain with loose stools for the past week or so. Patient has a family history of Crohn's disease. Patient's mother has a Crohn's disease and her aunt has Crohn's/colitis. Patient reports nausea no vomiting. 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 Has been seen by OBGYN on regular basis. Patient denies any fever or chills. Denies urinary frequency, pain or burning. Will check patient's labs, urine analysis, will do CT scan. Patient does report abdominal distension and pain. Patient reports that the pain is diffuse throughout the whole abdomen Reevaluation(s) Reevaluation #1: Labs and CT scan reviewed. No leukocytosis no anemia. Mild dehydration, patient is getting IV fluids. Urine negative for blood, nitrite, WBC, bacteria. Urine test negative. CT scan showed normal bowel, appendix. No bowel thickening or mesenteric fat stranding. No free fluid. Chronically dilated right and left ovarian veins and parautrerine veins. No venous thrombosis. The uterus has a retroverted appearance, no uterine or adnexal mass. When compared to CT scan from March of 2022 there is no acute imaging abnormalities in abdomen or pelvis. No renal stones or hydronephrosis. Patient reports that pain has been subsiding. Reevaluation #2: Patient reports that the pain is on and off. Will medicate her with ketorolac. Patient reports that her OBGYN provider wanted her to have ultrasound. Ultrasound ordered Medications Administered Discontinued Medications Generic Name Dose Route Start Last Admin Trade Name Freq PRN Reason Stop Dose Admin Sodium Chloride 1,000 mls @ 999 mls/hr 09/29/22 09:44 09/29/22 13:34 Ns IV 09/29/22 10:44 Infused .Q1H1M STA Infusion Iohexol 100 ml 09/29/22 10:48 09/29/22 10:49 Iohexol 350 Mg/Ml 100 Ml Infus..Btl IV 09/29/22 10:49 85 ml ONCE ONE Administration Medical Decision Making Differential Diagnosis Differential Diagnoses: The differential diagnosis associated with the presentation includes UTI, pelvic congestion, bladder spasm Lab Data MDM Lab Attestation statement: I reviewed the patient's lab results. 09/29/22 08:38 09/29/22 08:38 Labs: Lab Results 09/29/22 09/29/22 09/29/22 Range/Units 08:38 08:38 08:38 WBC 6.3 (4.8-10.8) X10*3/uL RBC 5.19 (4.20-5.50) X10*6/uL Hgb 14.1 (12.0-16.0) g/dl Hct 41.0 (37.0-47.0) % MCV 79.0 L (80.0-98.0) fL MCH 27.2 (27.0-33.0) pg MCHC 34.4 (31.0-35.0) g/dl RDW 12.9 (11.0-16.0) % Plt Count 268 (160-400) X10*3/uL MPV 10.3 (9.4-12.3) fL Absolute Nucleated RBC 0.000 (0.0-0.012) X10*3/uL Nucleated RBC % (auto) 0.0 (0.0-0.2) /100WBC Sodium 142 (135-145) mmol/L Potassium 3.9 (3.3-5.1) mmol/L Chloride 113 H (96-108) mmol/L Carbon Dioxide 21 L (22-29) mmol/L Anion Gap 12 (12-20) BUN 9 (9-16) mg/dL Creatinine 0.69 (0.5-1.4) mg/dL Estim Creat Clear Calc 113.7 Estimated GFR > 60 Random Glucose 102 (60-115) mg/dL Calcium 9.2 (8.4-10.2) mg/dL Urine Color Urine Appearance Urine pH (5.0-9.0) Ur Specific [place] (1.005-1.025) Urine Protein (Neg-Trace) mg/dL Urine Glucose (UA) (Negative) mg/dL Urine Ketones (Negative) mg/dL Urine Blood (Negative) Urine Nitrite (Negative) Ur Leukocyte Esterase (Negative) Urine RBC (0-2) /HPF Urine WBC (0-5) /HPF Ur Squamous Epith Cells (0-2) /HPF Urine Bacteria (None Seen) Hyaline Casts (0-2) /LPF Urine Test (NEGATIVE) COVID-19 (BELEM) Negative (Negative) COVID-19 Clin Com See Note 09/29/22 09/29/22 Range/Units 08:52 08:52 WBC (4.8-10.8) X10*3/uL RBC (4.20-5.50) X10*6/uL Hgb (12.0-16.0) g/dl Hct (37.0-47.0) % MCV (80.0-98.0) fL MCH (27.0-33.0) pg MCHC (31.0-35.0) g/dl RDW (11.0-16.0) % Plt Count (160-400) X10*3/uL MPV (9.4-12.3) fL Absolute Nucleated RBC (0.0-0.012) X10*3/uL Nucleated RBC % (auto) (0.0-0.2) /100WBC Sodium (135-145) mmol/L Potassium (3.3-5.1) mmol/L Chloride (96-108) mmol/L Carbon Dioxide (22-29) mmol/L Anion Gap (12-20) BUN (9-16) mg/dL Creatinine (0.5-1.4) mg/dL Estim Creat Clear Calc Estimated GFR Random Glucose (60-115) mg/dL Calcium (8.4-10.2) mg/dL Urine Color Dark Yellow Urine Appearance Clear Urine pH 5.5 (5.0-9.0) Ur Specific [place] 1.025 (1.005-1.025) Urine Protein Trace (Neg-Trace) mg/dL Urine Glucose (UA) Negative (Negative) mg/dL Urine Ketones Trace (Negative) mg/dL Urine Blood Negative (Negative) Urine Nitrite Negative (Negative) Ur Leukocyte Esterase Trace H (Negative) Urine RBC 0-2 (0-2) /HPF Urine WBC 0-5 (0-5) /HPF Ur Squamous Epith Cells 3-5 (0-2) /HPF Urine Bacteria None Seen (None Seen) Hyaline Casts 3-5 (0-2) /LPF Urine Test NEGATIVE (NEGATIVE) COVID-19 (BELEM) (Negative) COVID-19 Clin Com Independent Interpretation I performed an independent interpretation of an: Ultrasound and CT Scan (Abdominal and pelvis CT scan) Radiology Impression Discussion of test interpretation with radiology: I have reviewed the radiologist's reading. Radiologist Impression: FINDINGS: LUNG BASES: Normal. No pulmonary consolidation or pleural effusion.? LIVER: The liver has normal size, shape, and attenuation.? No evidence of liver mass. GALLBLADDER AND BILIARY TREE: Gallbladder is without radiopaque stones, wall thickening or pericholecystic fluid.? No dilated bile ducts. PANCREAS: Normal. No edema, pancreatic ductal dilatation or mass.? SPLEEN: Normal.? ADRENAL GLANDS: Normal.? KIDNEYS AND URETERS: The kidneys have normal size and cortical thickness. No perinephric edema or fluid collection. No urolithiasis or hydroureteronephrosis. BLADDER:? Normal. No calculi or wall thickening. BOWEL AND PERITONEUM: Stomach is unremarkable. No dilated loops of bowel. The appendix is normal. No bowel wall thickening or mesenteric fat stranding. No free fluid or pneumoperitoneum. ABDOMINAL WALL: Normal.? VASCULATURE: Abdominal aorta is normal in size and its branches are widely patent. Inferior vena cava is normal. The right and left ovarian veins and parauterine and myometrial veins are chronically dilated. No venous thrombosis. LYMPH NODES: No pathologic sized lymph nodes in the abdomen or pelvis. No inguinal lymphadenopathy. PELVIC VISCERA: The uterus has a retroverted appearance. No uterine or adnexal mass. MUSCULOSKELETAL: Unremarkable.? CT/CT abdomen pelvis w IV con IMPRESSION: *? No acute imaging abnormalities in the abdomen or pelvis compared to 04/04/2022. *? No renal stones or hydronephrosis. *? The gonadal, parauterine and myometrial veins are chronically dilated. Note that in some patients, dilated veins can be a clinically insignificant imaging observation. However, dilated veins can also be a manifestation of venous valve incompetence, venous reflux and pelvic venous congestion syndrome in which patient's can have chronic pelvic pain. PELVIC ULTRASOUND FINDINGS: Uterus: The uterus is retroverted and measures 6.4 x 3.1 x 3.1 cm. The double wall endometrial thickness is 0.4 mm.? The uterus is smooth in contour and has normal myometrial echogenicity. ? No visible fibroid. Adnexa: Both ovaries are visualized. There is normal color flow to the adnexa. There is no ovarian torsion.? There is no pelvic ascites or fluid collection. Right ovary measures 3.9 x 1.2 x 1.2 cm. Volume of 3 mL. Prominent adnexal and uterine vessels present. Left ovary measures 2.6 x 1.2 x 1.3 cm. Volume of 2.1. Prominent adnexal and uterine vessels. No fluid within the cul-de-sac. US/US pelvic and transvaginal IMPRESSION: No significant pelvic abnormality appreciated. Discharge Plan Discharge Clinical Impression: Pelvic congestion syndrome, Pelvic pain Patient Disposition: Home, Self-Care Instructions: Pelvic Pain in Women (ED), Heat Pack Application (ED), Pelvic Pain (ED) Additional Instructions: You were seen here today for lower abdominal discomfort. We did CT scan that did not show anything acute. Same as last year in March. Ultrasound shows normal ovaries, normal uterus. Please follow-up with your OBGYN provider tomorrow morning. You will be given ibuprofen for pain. Please apply heat to your lower abdominal area and your low back area for comfort. Please return to emergency department if you will have any concerns Prescriptions: New ibuprofen 600 mg tablet 600 mg PO Q8H PRN (Reason: pain) Qty: 20 0RF No Action ibuprofen 600 mg tablet 600 mg PO Q6-8H PRN (Reason: pain) Qty: 30 0RF acetaminophen 500 mg tablet 500 mg PO Q6H PRN (Reason: pain) Qty: 30 0RF medroxyprogesterone [Depo-Provera] 150 mg/mL suspension 150 mg IM [id number] 90 Days Qty: 1 3RF fexofenadine [Samantha Allergy] 180 mg tablet 180 mg PO DAILY Qty: 30 1RF ondansetron 4 mg tablet,disintegrating 4 mg PO Q8H PRN (Reason: nausea and vomiting) Qty: 7 0RF albuterol sulfate 90 mcg/actuation HFA aerosol inhaler 2 puff inhalation Q4-6H PRN (Reason: shortness of breath or wheezing) Qty: 6.7 0RF Referrals: Po,Neel Henry MD [Primary Care Provider] - Roby Eid MD [Physician] -
[2022-09-29 09:49] VITALS: BP 110/64; PULSE 71; RESP 18; TEMP 37.1; O2SAT 98
[2022-09-29] MEDS: 0.9 % Sodium Chloride 1,000 ML 999 ML IV (10:18)
--- NOTE | 2022-09-29 10:33 | PC.NURSE ---
Pt found lying semi-fowlers in hospital bed airway open and patent, no obvious signs of distress, no dif breathing. Lung sounds clr all nguyen bilat. Heart sounds normal. Skin normal for ethnicity, warm, and dry. Bowel sounds present all nguyen, abdomen soft, tender upon palpation/pain resting. No edema noted. Pt reports right sided abdominal pain that goes to her back. Imaging took pt for scan. Pt aware of plan of care.
[2022-09-29] MEDS: iohexoL 350 MG/ML 100 ML INFUS..BTL IV (10:49)
[2022-09-29 12:05] VITALS: BP 108/56; PULSE 73; RESP 18; TEMP 36.8; O2SAT 99
[2022-09-29 14:17] VITALS: BP 117/69; PULSE 70; RESP 18; TEMP 36.8; O2SAT 98
[2022-09-29 17:39] VITALS: BP 108/63; PULSE 69; RESP 18; TEMP 37.1; O2SAT 100
== END 2022-09-29 18:05 | disposition home or self-care (01) ==
PROVIDERS: Emergency Provider Emergency Medicine; PCP Internal Medicine
DX: R10.2 Pelvic and perineal pain (principal); N94.89 Other specified conditions associated with female genital organs and menstrual cycle; Z20.822 Contact with and (suspected) exposure to COVID-19; Z20.828 Contact with and (suspected) exposure to other viral communicable diseases; Z79.899 Other long term (current) drug therapy
CPT/HCPCS: 74177; 76830; 76856; 80048; 81001; 81025; 85027; 87635; 96360; 96361; 99284; Q9967

== ENCOUNTER 2022-10-06 11:27 | Outpatient (REF) | payer OTHER, SELFPAY ==
[2022-10-06 15:30] LABS: CT PCR NOT DETECTED (Not Detect.); NG PCR NOT DETECTED (Not Detect.)
== END 2022-10-06 11:28 | disposition home or self-care (01) ==
LOC: HO.LNP 11:27
PROVIDERS: PCP Internal Medicine; Visit Provider Obstetrics & Gynecology
DX: N94.89 Other specified conditions associated with female genital organs and menstrual cycle (principal); R19.7 Diarrhea, unspecified; Z32.02 Encounter for pregnancy test, result negative
CPT/HCPCS: 0353U; 81003; 81025; 99212

== ENCOUNTER 2022-10-07 15:01 | Outpatient (REF) | payer OTHER, SELFPAY ==
[2022-10-07 17:12] LABS: Alanine Aminotransferase 51 U/L (0-31); Albumin Level 4.7 g/dL (3.5-5.0); Alkaline Phosphatase 74 U/L (39-117); Anion Gap 12 (12-20); Aspartate Amino Transferase 127 U/L (5-31); Bilirubin Total 0.5 mg/dL (0.0-1.0); Blood Urea Nitrogen 10 mg/dL (9-16); Calcium 9.7 mg/dL (8.4-10.2); Carbon Dioxide 21 mmol/L (22-29); Chloride 113 mmol/L (96-108); Estimated Glomerular Filt Rate > 60; Glucose Random 83 mg/dL (60-115); Magnesium 2.2 mg/dL (1.6-2.6); Phosphorus 3.2 mg/dL (2.7-4.5); Potassium 4.2 mmol/L (3.3-5.1); Sodium 142 mmol/L (135-145); Total Protein 7.1 g/dL (6.5-8.0)
[2022-10-07 17:25] LABS: Thyroid Stimulating Hormone 0.65 uIU/mL (0.32-4.0)
== END 2022-10-07 15:02 | disposition home or self-care (01) ==
LOC: HO.LAB 15:01
PROVIDERS: PCP Internal Medicine; Visit Provider Internal Medicine
DX: K52.9 Noninfective gastroenteritis and colitis, unspecified (principal); R79.89 Other specified abnormal findings of blood chemistry; R10.30 Lower abdominal pain, unspecified; N94.89 Other specified conditions associated with female genital organs and menstrual cycle
CPT/HCPCS: 36415; 80053; 83735; 84100; 84439; 84443

== ENCOUNTER 2022-10-08 10:27 | Outpatient (REF) | payer OTHER, SELFPAY ==
[2022-10-10 11:42] LABS: CDiff Gene PCR NEGATIVE (Negative)
== END 2022-10-08 10:28 | disposition home or self-care (01) ==
LOC: HO.LNP 10:27
PROVIDERS: Visit Provider Internal Medicine
DX: K52.9 Noninfective gastroenteritis and colitis, unspecified (principal)
CPT/HCPCS: 87177; 87209; 87493; 89055

== ENCOUNTER 2022-10-21 14:55 | Outpatient (REF) | payer OTHER, SELFPAY ==
--- NOTE | ~2022-10-21 | US_ITS ---
EXAMINATION: US ABDOMEN COMPLETE CLINICAL INFORMATION: Abnormal liver function tests. COMPARISON: Previous CT of the abdomen and pelvis 09/29/2022 TECHNIQUE: Real-time imaging of the abdominal viscera. FINDINGS: PANCREAS: Normal. ABDOMINAL AORTA: The proximal, mid, and distal segments are normal in caliber. INFERIOR VENA CAVA: Visualized portions are normal. LIVER: Normal. The liver is normal in size. The liver contour is normal. Parenchymal echogenicity is normal. No focal hepatic lesion. There is no intrahepatic biliary duct dilatation seen. GALLBLADDER: Normal. The gallbladder is physiologically distended without evidence of stones, sludge, polyps, wall thickening or pericholecystic fluid. COMMON BILE DUCT: Normal in caliber measuring 0.3 cm in diameter. RIGHT KIDNEY: Normal. No hydronephrosis. No renal calculi or focal parenchymal lesions. The kidney measures 11 cm in maximum dimension. LEFT KIDNEY: Normal. No hydronephrosis. No renal calculi or focal parenchymal lesions. The kidney measures 10 cm in maximum dimension. SPLEEN: Normal. The spleen measures 10 cm in maximum dimension. FREE FLUID: None. US/US abdomen complete IMPRESSION: Unremarkable exam.
== END 2022-10-21 14:56 | disposition home or self-care (01) ==
LOC: HO.US 14:55
PROVIDERS: PCP Internal Medicine; Visit Provider Internal Medicine
DX: R79.89 Other specified abnormal findings of blood chemistry (principal)
CPT/HCPCS: 76700

== ENCOUNTER 2022-12-16 19:13 | Emergency (ER) | payer OTHER, SELFPAY ==
--- NOTE | ~2022-12-16 | XR_ITS ---
EXAMINATION: XR ABDOMEN KUB CLINICAL INDICATION: Constipation. COMPARISON: CT abdomen/pelvis 09/29/2022. TECHNIQUE: AP view of the abdomen. FINDINGS: Nonobstructive bowel gas pattern. No significant stool content. No abnormal soft tissue calcifications. No acute osseous findings. Clear lung bases. XR/XR KUB IMPRESSION: Nonobstructive bowel gas pattern. No significant stool content.
--- NOTE | 2022-12-16 19:21 | ED.GENADULT ---
HPI - General Adult General Chief complaint: Nausea/Vomiting/Diarrhea Stated complaint: Syncope/Vomiting Time Seen by Provider: 12/16/22 19:57 Source: patient Mode of arrival: ambulatory Limitations: no limitations History of Present Illness HPI narrative: Patient 19 yrs old otherwise healthy been constipated for last few days does have history of anxiety and depression was at the Grand mother house had white rice after that patient started vomiting with diffuse abdominal pain vomited 6-7 times patient also has constipation has not moved her bowels for last few days patient was feeling dizzy and almost passed out no fever no chills no diarrhea no other family member sick Related Data Previous Rx's Medication Instructions Recorded acetaminophen 500 mg tablet 500 mg PO Q6H PRN pain #30 tabs 02/25/22 fexofenadine 180 mg tablet 180 mg PO DAILY #30 tabs 08/26/22 (Samantha Allergy) ibuprofen 600 mg tablet 600 mg PO Q8H PRN pain #20 tabs 09/29/22 ondansetron 4 mg disintegrating 4 mg PO Q8H PRN nausea and 10/10/22 tablet vomiting #14 tabs psyllium husk 0.52 gram capsule 1.04 g PO BEDTIME PRN constipation 11/23/22 (Fiber Laxative (psyllium husk)) #60 caps albuterol sulfate 90 mcg/actuation 2 puff inhalation Q6H PRN 11/24/22 aerosol inhaler (Ventolin HFA) shortness of breath or wheezing #8.5 grams fluticasone 113 mcg-salmeterol 14 1 inh inhalation BID #1 ea 11/29/22 mcg/actuation breath activated powdr (AirDuo RespiClick) ondansetron 4 mg disintegrating 4 mg PO Q6-8H PRN nausea and 12/16/22 tablet vomiting #7 tabs Allergies Allergy/AdvReac Type Severity Reaction Status Date / Time Seasonal Allergies Allergy Intermediate Itchy Eyes Verified 12/16/22 19:22 Review of Systems Review of Systems: Yes all other systems are reviewed and are negative [facility] Past Medical History Medical History (Updated 12/16/22 @ 22:43 by Betito Don MD) Anxiety and depression Asthma Cough Cough due to LYNN inhibitor Low back pain Migraine with aura Seasonal allergies Family History Family History (Updated 10/07/22 @ 14:04 by Isabel Gifford CMA) Paternal Grandmother Breast CA Mother Crohn disease Father Migraine Brother Bipolar 1 disorder Maternal Grandmother Heart disease Maternal Aunt Colon cancer Other Mental health disorder Social History Social History (Updated 11/23/22 @ 10:46 by Neel Duque MD) Housing: Apartment Alcohol intake: current Alcohol intake frequency: a few times a week Alcohol type: hard liquor Patient Tobacco Use Status: Never used Tobacco Smoked in Last 30 Days: No e-Cigarette/Vaping Use: Never Used Second Hand Smoke Exposure: No Use of substances other than those prescribed or required for medical reasons: No Substance Use Type: Marijuana Any prior treatment program specific to substance use: No Advance Directives: No Advance Directives Information Provided: No Patient : No service: No Current occupational status: employed 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 Oriented X3. Mild distress, anxious Eyes: No pallor or icterus ENT: Pharynx normal. Oral Mucosa moist Neck: Normal inspection. Neck supple. CVS: Normal heart rate and rhythm. Pulses normal. Respiratory: No respiratory distress. Equal air entry bilateral, no wheezing/rales/rhonchi Abdomen: Soft diffuse tenderness no rebound tenderness or guarding Bowel sounds are present, no mass palpable, no CVA tenderness Skin: Skin warm and dry. Normal skin color. Normal skin turgor. Extremities: No lower extremity edema. No calf tenderness Neuro: Oriented X 3. Course Course Course Narrative: RME performed by Rachel Lang PA-C. Patient is a 22 year old assigned female at presenting to the emergency department with nausea and vomiting. Labs ordered. Patient placed back in the waiting room pending room availability and results. Medications Administered Discontinued Medications Generic Name Dose Route Start Last Admin Trade Name Freq PRN Reason Stop Dose Admin Sodium Chloride 1,000 mls @ 999 mls/hr 12/16/22 19:59 12/16/22 21:13 Ns IV 12/16/22 20:59 Infused .Q1H1M ONE Infusion Morphine Sulfate 4 mg 12/16/22 20:11 12/16/22 20:23 Morphine Sulfate 4 Mg/Ml Cartridge IVPUSH 12/16/22 20:12 4 mg ONCE ONE Administration Protocol Ondansetron HCl 4 mg 12/16/22 19:59 12/16/22 20:23 Ondansetron Hcl 4 Mg/2 Ml Vial IVPUSH 12/16/22 20:00 4 mg ONCE ONE Administration Medical Decision Making Medical Decision Making [facility] Narrative: Patient acute nausea and vomiting after eating food labs are stable feeling much better after IV fluid discharge patient home Lab Data [facility] Lab Attestation statement: I reviewed the patient's lab results. 12/16/22 19:59 12/16/22 19:59 Labs: Lab Results 12/16/22 12/16/22 12/16/22 Range/Units 19:51 19:59 19:59 WBC 8.0 (4.8-10.8) X10*3/uL RBC 5.66 H (4.20-5.50) X10*6/uL Hgb 15.3 (12.0-16.0) g/dl Hct 43.4 (37.0-47.0) % MCV 76.7 L (80.0-98.0) fL MCH 27.0 (27.0-33.0) pg MCHC 35.3 H (31.0-35.0) g/dl RDW 12.7 (11.0-16.0) % Plt Count 278 (160-400) X10*3/uL MPV 10.0 (9.4-12.3) fL Immature Gran % (Auto) 0.4 (0.0-0.4) % Neut % (Auto) 74.5 H (45-73) % Lymph % (Auto) 14.8 L (20-40) % [place] % (Auto) 9.5 (2-11) % Eos % (Auto) 0.4 (0-4) % Baso % (Auto) 0.4 (0-2) % Lymph # (Auto) 1.2 (1.2-4.9) X10*3/uL [place] # (Auto) 0.8 (0.1-1.2) X10*3/uL Eos # (Auto) 0.0 (0.0-0.4) X10*3/uL Baso # (Auto) 0.0 (0.0-0.2) X10*3/uL Abs Immat Gran (auto) 0.03 (0.00-0.03) X10*3/uL Absolute Neuts (auto) 5.9 (2.0-8.3) x10*3/uL Absolute Nucleated RBC 0.000 (0.0-0.012) X10*3/uL Nucleated RBC % (auto) 0.0 (0.0-0.2) /100WBC Sodium 141 (135-145) mmol/L Potassium 3.3 D (3.3-5.1) mmol/L Chloride 109 H (96-108) mmol/L Carbon Dioxide 18 L (22-29) mmol/L Anion Gap 17 (12-20) BUN 10 (9-16) mg/dL Creatinine 0.67 (0.5-1.4) mg/dL Estim Creat Clear Calc 108.0 Estimated GFR > 60 Random Glucose 96 (60-115) mg/dL Calcium 10.1 (8.4-10.2) mg/dL Magnesium 2.0 (1.6-2.6) mg/dL Total Bilirubin 0.7 (0.0-1.0) mg/dL AST 24 (5-31) U/L ALT 21 (0-31) U/L Alkaline Phosphatase 82 (39-117) U/L Total Protein 8.6 H (6.5-8.0) g/dL Albumin 5.0 (3.5-5.0) g/dL Beta HCG, Quant mIU/mL Urine Color Urine Appearance Urine pH (5.0-9.0) Ur Specific [place] (1.005-1.025) Urine Protein (Neg-Trace) mg/dL Urine Glucose (UA) (Negative) mg/dL Urine Ketones (Negative) mg/dL Urine Blood (Negative) Urine Nitrite (Negative) Ur Leukocyte Esterase (Negative) COVID-19 (BELEM) Negative (Negative) COVID-19 Clin Com See Note 12/16/22 12/16/22 Range/Units 19:59 22:15 WBC (4.8-10.8) X10*3/uL RBC (4.20-5.50) X10*6/uL Hgb (12.0-16.0) g/dl Hct (37.0-47.0) % MCV (80.0-98.0) fL MCH (27.0-33.0) pg MCHC (31.0-35.0) g/dl RDW (11.0-16.0) % Plt Count (160-400) X10*3/uL MPV (9.4-12.3) fL Immature Gran % (Auto) (0.0-0.4) % Neut % (Auto) (45-73) % Lymph % (Auto) (20-40) % [place] % (Auto) (2-11) % Eos % (Auto) (0-4) % Baso % (Auto) (0-2) % Lymph # (Auto) (1.2-4.9) X10*3/uL [place] # (Auto) (0.1-1.2) X10*3/uL Eos # (Auto) (0.0-0.4) X10*3/uL Baso # (Auto) (0.0-0.2) X10*3/uL Abs Immat Gran (auto) (0.00-0.03) X10*3/uL Absolute Neuts (auto) (2.0-8.3) x10*3/uL Absolute Nucleated RBC (0.0-0.012) X10*3/uL Nucleated RBC % (auto) (0.0-0.2) /100WBC Sodium (135-145) mmol/L Potassium (3.3-5.1) mmol/L Chloride (96-108) mmol/L Carbon Dioxide (22-29) mmol/L Anion Gap (12-20) BUN (9-16) mg/dL Creatinine (0.5-1.4) mg/dL Estim Creat Clear Calc Estimated GFR Random Glucose (60-115) mg/dL Calcium (8.4-10.2) mg/dL Magnesium (1.6-2.6) mg/dL Total Bilirubin (0.0-1.0) mg/dL AST (5-31) U/L ALT (0-31) U/L Alkaline Phosphatase (39-117) U/L Total Protein (6.5-8.0) g/dL Albumin (3.5-5.0) g/dL Beta HCG, Quant < 2 mIU/mL Urine Color Yellow Urine Appearance Clear Urine pH 6.5 (5.0-9.0) Ur Specific [place] 1.025 (1.005-1.025) Urine Protein Trace (Neg-Trace) mg/dL Urine Glucose (UA) Negative (Negative) mg/dL Urine Ketones 80 (Negative) mg/dL Urine Blood Negative (Negative) Urine Nitrite Negative (Negative) Ur Leukocyte Esterase Negative (Negative) COVID-19 (BELEM) (Negative) COVID-19 Clin Com Discharge Plan Discharge Clinical Impression: Acute nausea with nonbilious vomiting Patient Disposition: Home, Self-Care Instructions: Acute Nausea and Vomiting (ED) Additional Instructions: Drink plenty of fluid Nausea medication as prescribed Follow-up with PCP if not better Prescriptions: New ondansetron 4 mg tablet,disintegrating 4 mg PO Q6-8H PRN (Reason: nausea and vomiting) Qty: 7 0RF No Action acetaminophen 500 mg tablet 500 mg PO Q6H PRN (Reason: pain) Qty: 30 0RF fexofenadine [Samantha Allergy] 180 mg tablet 180 mg PO DAILY Qty: 30 1RF ondansetron 4 mg tablet,disintegrating 4 mg PO Q8H PRN (Reason: nausea and vomiting) Qty: 14 0RF albuterol sulfate [Ventolin HFA] 90 mcg/actuation HFA aerosol inhaler 2 puff inhalation Q6H PRN (Reason: shortness of breath or wheezing) Qty: 8.5 0RF fluticasone propion-salmeterol [AirDuo RespiClick] 113-14 mcg/actuation aerosol powdr breath activated 1 inh inhalation BID Qty: 1 5RF ibuprofen 600 mg tablet 600 mg PO Q8H PRN (Reason: pain) Qty: 20 0RF psyllium husk [Fiber Laxative (psyllium husk)] 0.52 gram capsule 1.04 g PO BEDTIME PRN (Reason: constipation) Qty: 60 3RF
[2022-12-16 19:22] VITALS: BP 134/84; PULSE 100; RESP 18; TEMP 36.8; O2SAT 95; BMI 24.3
[2022-12-16 20:03] LABS: MANUAL DIFF FLAG NO
[2022-12-16 20:08] LABS: Basophils Percent Auto 0.4 % (0-2); Eosinophils Percent Auto 0.4 % (0-4); Hematocrit 43.4 % (37.0-47.0); Hemoglobin 15.3 g/dl (12.0-16.0); Imm Gran Abs Auto 0.03 X10*3/uL (0.00-0.03); Imm Gran Pct Auto 0.4 % (0.0-0.4); Lymphocytes Absolute Auto 1.2 X10*3/uL (1.2-4.9); Lymphocytes Percent Auto 14.8 % (20-40); Mean Corpuscular HGB Conc 35.3 g/dl (31.0-35.0); Mean Corpuscular Volume 76.7 fL (80.0-98.0); Monocytes Absolute Auto 0.8 X10*3/uL (0.1-1.2); Monocytes Percent Auto 9.5 % (2-11); Neutrophils Absolute Auto 5.9 x10*3/uL (2.0-8.3); Neutrophils Percent Auto 74.5 % (45-73); Platelet Count 278 X10*3/uL (160-400); Red Blood Count 5.66 X10*6/uL (4.20-5.50); Red Cell Distribution Width 12.7 % (11.0-16.0)
[2022-12-16 20:08] LABS: COVID-19 Test Negative (Negative); IDNOW Serial# BCCEAD1C
[2022-12-16] MEDS: 0.9 % Sodium Chloride 1,000 ML 999 ML IV (20:12)
[2022-12-16] MEDS: Morphine Sulfate 4 MG/ML CARTRIDGE IVPUSH (20:23)
[2022-12-16] MEDS: ondansetron HCL 4 MG/2 ML VIAL IVPUSH (20:23)
[2022-12-16 20:32] LABS: Alanine Aminotransferase 21 U/L (0-31); Alkaline Phosphatase 82 U/L (39-117); Anion Gap 17 (12-20); Aspartate Amino Transferase 24 U/L (5-31); Bilirubin Total 0.7 mg/dL (0.0-1.0); Blood Urea Nitrogen 10 mg/dL (9-16); Calcium 10.1 mg/dL (8.4-10.2); Carbon Dioxide 18 mmol/L (22-29); Chloride 109 mmol/L (96-108); Estimated Glomerular Filt Rate > 60; Glucose Random 96 mg/dL (60-115); Potassium 3.3 mmol/L (3.3-5.1); Sodium 141 mmol/L (135-145); Total Protein 8.6 g/dL (6.5-8.0)
[2022-12-16 20:48] LABS: HCG Quantitative < 2 mIU/mL
[2022-12-16 22:28] LABS: Appearance Urine Clear; Color Urine Yellow; Glucose Urine UA Negative (Negative); Leukocyte Esterase Urine Negative (Negative); Nitrite Urine Negative (Negative); PH 6.5 (5.0-9.0); Specific Gravity - Urine 1.025 (1.005-1.025); Urine Blood Negative (Negative); Urine Ketones 80 mg/dL (Negative); Urine Protein Trace mg/dL (Neg-Trace)
[2022-12-16 22:53] VITALS: BP 103/54; PULSE 69; RESP 17; TEMP 36.8; O2SAT 99
== END 2022-12-16 23:01 | disposition home or self-care (01) ==
PROVIDERS: Physician Assistant Medical; Emergency Provider Internal Medicine; PCP Internal Medicine
DX: K59.00 Constipation, unspecified (principal); Z20.822 Contact with and (suspected) exposure to COVID-19; Z20.828 Contact with and (suspected) exposure to other viral communicable diseases; Z79.899 Other long term (current) drug therapy
CPT/HCPCS: 36415; 74018; 80053; 81003; 83735; 84702; 85025; 87635; 99284; J2270; J2405

== ENCOUNTER 2022-12-20 09:08 | Emergency (ER) | payer OTHER, SELFPAY ==
[2022-12-20 09:11] VITALS: BP 111/71; PULSE 95; RESP 18; TEMP 36.6; O2SAT 98; BMI 24.3
[2022-12-20 09:28] LABS: IDNOW Serial# 08D9AD1C; Strep A Nucleic Acid Negative (Negative)
[2022-12-20] MEDS: Acetaminophen 325 MG TABLET 975 MG PO (09:34)
--- NOTE | 2022-12-20 09:40 | PC.NURSE ---
pt aox4, reporting 10/10 throat and ear pain that started yesterday. pain began in ear and feels like a crackling sensation. medicated with tylenol per aug. swabs sent to lab
[2022-12-20 10:27] LABS: Influenza A PCR NEGATIVE (Negative); Influenza B PCR NEGATIVE (Negative); Resp Syncy Virus RNA Qual PCR NEGATIVE (Negative); SARS COV2 PCR INHOUSE NEGATIVE (Negative)
--- NOTE | 2022-12-20 10:29 | ED_ITS ---
HPI - General Adult General Chief complaint: General Medical Stated complaint: Sore Throat Ear Pain Time Seen by Provider: 12/20/22 09:17 Source: patient and RN notes reviewed Mode of arrival: ambulatory Limitations: no limitations History of Present Illness HPI narrative: This is a 22-year-old female, with a past medical history of asthma, presenting to the emergency department for evaluation of sore throat, productive cough and right ear pain since yesterday. Patient states that her daughter was sick with similar symptoms about a week ago. Patient denies any fevers, chills, chest pain, shortness of breath, palpitations, abdominal pain. She denies taking any medications at home to treat her current symptoms. No other complaints or concerns at this time. MD complaint: Right ear pain, cough, sore throat Onset (ago): day(s) Radiation: non-radiation Quality: aching Relieving factors: none Exacerbating factors: none Associated symptoms: cough Treatments prior to arrival: none Related Data Previous Rx's Medication Instructions Recorded acetaminophen 500 mg tablet 500 mg PO Q6H PRN pain #30 tabs 02/25/22 fexofenadine 180 mg tablet 180 mg PO DAILY #30 tabs 08/26/22 (Samantha Allergy) ibuprofen 600 mg tablet 600 mg PO Q8H PRN pain #20 tabs 09/29/22 ondansetron 4 mg disintegrating 4 mg PO Q8H PRN nausea and 10/10/22 tablet vomiting #14 tabs psyllium husk 0.52 gram capsule 1.04 g PO BEDTIME PRN constipation 11/23/22 (Fiber Laxative (psyllium husk)) #60 caps albuterol sulfate 90 mcg/actuation 2 puff inhalation Q6H PRN 11/24/22 aerosol inhaler (Ventolin HFA) shortness of breath or wheezing #8.5 grams fluticasone 113 mcg-salmeterol 14 1 inh inhalation BID #1 ea 11/29/22 mcg/actuation breath activated powdr (AirDuo RespiClick) ondansetron 4 mg disintegrating 4 mg PO Q6-8H PRN nausea and 12/16/22 tablet vomiting #7 tabs acetaminophen 500 mg tablet 500 mg PO Q6H PRN pain #30 tabs 12/20/22 (Tylenol Extra Strength) ibuprofen 600 mg tablet 600 mg PO Q6H #45 tabs 12/20/22 Allergies Allergy/AdvReac Type Severity Reaction Status Date / Time Seasonal Allergies Allergy Intermediate Itchy Eyes Verified 12/20/22 09:10 Review of Systems Review of Systems: Constitutional: No Weight loss, No Fever, No Chills ENT/Mouth: + Ear Pain, No Nasal Congestion, No Sinus Pain, No Hoarseness, +sore throat, No Rhinorrhea, No Swallowing Difficulty Cardiovascular: No Chest Pain, No SOB Respiratory: + Cough, +Sputum, No Wheezing Gastrointestinal: No Nausea, No Vomiting, No Diarrhea, No Constipation, No Abdominal pain Genitourinary: No Dysuria, No Urinary Frequency, No Hematuria, No Urinary I ncontinence/retention, No Urgency, No Flank Pain Musculoskeletal: No joint pain, No Myalgias, No Joint Swelling Skin: No Skin Lesions, No rash Neuro: No Weakness, No Numbness, No Paresthesias Yes all other systems are reviewed and are negative Constitutional: Constitutional: Reports as per [facility] Past Medical History Medical History Anxiety and depression Asthma Cough Cough due to LYNN inhibitor Low back pain Migraine with aura Seasonal allergies Family History Family History Paternal Grandmother Breast CA Mother Crohn disease Father Migraine Brother Bipolar 1 disorder Maternal Grandmother Heart disease Maternal Aunt Colon cancer Other Mental health disorder Social History Social History Housing: Apartment Alcohol intake: never Patient Tobacco Use Status: Never used Tobacco Smoked in Last 30 Days: No e-Cigarette/Vaping Use: Never Used Second Hand Smoke Exposure: No Use of substances other than those prescribed or required for medical reasons: Yes Substance Use Type: Marijuana Advance Directives: No service: No Current occupational status: employed 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 Uvula is midline, tolerating secretions well, no trismus, drooling, or dysphonia Head: Yes normal to inspection, Yes normocephalic and Yes atraumatic Ears: hearing grossly normal bilaterally and TM's normal bilaterally General nose exam: Normal external nose present Face and sinus: Yes normal facial exam Mouth: Normal oral and palatal mucosa present and moist mucous membranes Throat: Yes posterior oropharynx normal Eyes General: appearance normal, both eyes and all related structures Eyelids: Yes eyelids normal Conjunctivae: conjunctivae normal Sclerae: sclerae normal Pupils: Equal, round and reactive pupils present EOM: EOMs intact bilaterally Neck Neck: Yes normal visual inspection, Yes full ROM and Yes no lymphadenopathy Lymphatic: no lymphadenopathy noted Chest Chest palpation & inspection: normal inspection of the chest Resp Effort & Inspection: normal respiratory effort and able to speak in complete sentences Auscultation: clear to auscultation bilaterally, no crackles, no rales, no rhonchi and no wheezes Cardio Rate: regular rate Rhythm: regular rhythm Heart sounds: S1 normal heart sound present and S2 normal heart sound present GI Inspection: Yes normal to inspection Skin General skin exam: no rashes or lesions noted Trauma: no lacerations or abrasions Wounds: no wounds Neuro General: patient oriented x3 and moves all extremities Cranial nerves: Yes Equal, round and reactive pupils present Extrem General: Yes normal to inspection Right upper extremity: normal to inspection Left upper extremity: normal to inspection Right lower extremity: normal to inspection Left lower extremity: normal to inspection Medications Administered Discontinued Medications Generic Name Dose Route Start Last Admin Trade Name Freq PRN Reason Stop Dose Admin Acetaminophen 975 mg 12/20/22 09:25 12/20/22 09:34 Acetaminophen 325 Mg Tablet PO 12/20/22 09:26 975 mg ONCE ONE Administration Medical Decision Making Medical Decision Making [facility] Narrative: 22-year-old female presenting to the emergency department for evaluation of right ear and sore throat pain since yesterday. On arrival, vital signs within normal limits. Oropharynx is mildly erythematous, no tonsillar hypertrophy or exudates, airway is patent, right TM is nonerythematous nonbulging. Lungs clear to auscultation bilaterally. Symptoms consistent with viral like illness. Patient educated the importance of staying well hydrated and taking ibuprofen or Tylenol as needed for symptoms. Patient given return precautions if any new or worsening symptoms occur. Patient understands and agrees with plan. Patient stable for discharge. Differential Diagnosis Differential Diagnoses: The differential diagnosis associated with the presentation includes Pharyngitis, strep pharyngitis, COVID, upper respiratory infection, pneumonia- less likely Admission/Observation Consideration of admission/observation: Escalation of care including admission/observation considered Lab Data MDM Lab Attestation statement: I reviewed the patient's lab results. Negative flu, RSV, COVID, strep Labs: Lab Results 12/20/22 12/20/22 Range/Units 09:16 09:36 Influenza Type A (PCR) NEGATIVE (Negative) Influenza Type B (PCR) NEGATIVE (Negative) RSV RNA Qual (PCR) NEGATIVE (Negative) SARS-CoV-2 RNA (RT-PCR) NEGATIVE (Negative) S. pyogenes GrpA EDEL Negative (Negative) Discharge Plan Discharge Clinical Impression: Acute upper respiratory infection Patient Disposition: Home, Self-Care Instructions: Pharyngitis (ED) Additional Instructions: You tested negative for COVID, RSV, flu, and strep throat today. You likely have a virus. You do not need antibiotics at this time. Please drink plenty of fluids get plenty of rest. Take prescribed ibuprofen and Tylenol as directed as needed for symptoms. Tea with honey, soups and salt water gargles can help with your pain. If any new or worsening symptoms occur please return for re-evaluation. Prescriptions: New acetaminophen [Tylenol Extra Strength] 500 mg tablet 500 mg PO Q6H PRN (Reason: pain) Qty: 30 0RF ibuprofen 600 mg tablet 600 mg PO Q6H Qty: 45 0RF No Action acetaminophen 500 mg tablet 500 mg PO Q6H PRN (Reason: pain) Qty: 30 0RF fexofenadine [Samantha Allergy] 180 mg tablet 180 mg PO DAILY Qty: 30 1RF ondansetron 4 mg tablet,disintegrating 4 mg PO Q8H PRN (Reason: nausea and vomiting) Qty: 14 0RF albuterol sulfate [Ventolin HFA] 90 mcg/actuation HFA aerosol inhaler 2 puff inhalation Q6H PRN (Reason: shortness of breath or wheezing) Qty: 8.5 0RF fluticasone propion-salmeterol [AirDuo RespiClick] 113-14 mcg/actuation aerosol powdr breath activated 1 inh inhalation BID Qty: 1 5RF ibuprofen 600 mg tablet 600 mg PO Q8H PRN (Reason: pain) Qty: 20 0RF ondansetron 4 mg tablet,disintegrating 4 mg PO Q6-8H PRN (Reason: nausea and vomiting) Qty: 7 0RF psyllium husk [Fiber Laxative (psyllium husk)] 0.52 gram capsule 1.04 g PO BEDTIME PRN (Reason: constipation) Qty: 60 3RF Interventions: ED Discharge Assessment Last Done: 12/20/22 11:44 Discharge Date/Time: 12/20/22 11:45
== END 2022-12-20 11:45 | disposition home or self-care (01) ==
PROVIDERS: Physician Assistant Medical; Emergency Provider Emergency Medicine; PCP Internal Medicine
DX: J02.8 Acute pharyngitis due to other specified organisms (principal); J06.9 Acute upper respiratory infection, unspecified; H92.01 Otalgia, right ear; R05.9 Cough, unspecified; Z20.822 Contact with and (suspected) exposure to COVID-19; Z20.828 Contact with and (suspected) exposure to other viral communicable diseases; Z79.899 Other long term (current) drug therapy
CPT/HCPCS: 0241U; 87651; 99283

== ENCOUNTER 2023-01-13 11:00 | Outpatient (RCR) | payer OTHER, SELFPAY ==
--- NOTE | 2022-12-19 16:02 | MHC.PT.EP ---
[facility] [place] Office [place] Office [place] Office [address] [phone] F: [phone] F: [phone] F: [phone] F: [phone] Physical Therapy Plan of Care Date of Evaluation: Date of Surgery: NA Diagnosis: Low back pain, unspecified Assessment: Petr is a 22 yo female referred to PT for unspecified low back pain. On PT examination pt signs and symptoms suggestive of spinal hypermobility. Impairments include impaired B LE strength with increase groin/back pain, chronic LBP, poor standing/sitting posture, pain with lumbar flexion/extension/side bending, excessive cervical/thoracic/lumbar accessory mobility with pain, and impaired gait. This is leading to functional limitations including decreased activity tolerance such as playing with daughter, pain with sitting/standing for prolonged periods of time, pain with driving, difficulty with lifting groceries, and LBP pain with sleeping. Pt to benefit from skilled PT to address aforementioned impairments and functional limitations. PT to include core strengthening, LE strengthening, low back strengthening, gait training, STM. Frequency and Duration: The patient will be seen 2x per week for 5 weeks Short Term Goals: In 2 weeks... 1. Pt will be I with HEP by showing 100% return demonstration 2. Pt will demonstrate good understanding of posture and will be able to perform 30 mins check and correction as needed for her posture. Senior Care Goals: In 5 weeks... 1. Pt will improve core stability/strength in order to be able to improve activity tolerance such as playing with child with decreased pain. 2. Pt will be able to move trunk through all ranges with decreased pain in order to improve ability to don/doff shoes and dress self Treatment Plan: Modalities to reduce pain, spasms and effusion. Manual therapy to restore motion and function. Therapeutic exercise to improve strength and flexibility. Neuromuscular re-education for posture and balance. Therapeutic activities to return to functional activities of daily living. Electronically signed by: Anastasiya Bryant PT DPT Please sign and return to therapist. Thank you for your referral.
--- NOTE | 2023-02-10 13:47 | MHC.PT.DC ---
[facility] [place] Office [place] Office [place] Office [address] Aaron Diane [address] [phone] F: [phone] F: [phone] F: [phone] F: [phone] Physical Therapy Discharge Report Diagnosis: Low back pain, unspecified Date of Surgery: NA Date of Evaluation: 12/19/22 Date of Discharge: 02/10/23 Treatments to Date: 8 Cancellations to Date: No Shows to Date: Discharge Status: Improved Function Independent with HEP Discharge Summary: Petr completed with 8 PT visits and has improved significantly. She is independent with all HEPs as well. She is therefore being d/c from PT. Electronically signed by: Anastasiya Bryant, PT DPT Please sign and return to therapist. Thank you for your referral.
== END 2023-02-10 13:47 | disposition home or self-care (01) ==
LOC: HO.PT 11:00
PROVIDERS: PCP Internal Medicine; Visit Provider Internal Medicine
DX: M54.50 Low back pain, unspecified (principal)
CPT/HCPCS: 97110; 97140; 97161; 97530

== ENCOUNTER 2023-01-19 10:40 | Outpatient (REF) | payer OTHER, SELFPAY ==
[2023-01-19 13:26] LABS: Alanine Aminotransferase 22 U/L (0-31); Albumin Level 4.4 g/dL (3.5-5.0); Alkaline Phosphatase 71 U/L (39-117); Aspartate Amino Transferase 21 U/L (5-31); Bilirubin Direct 0.2 mg/dL (0.0-0.5); Bilirubin Total 0.7 mg/dL (0.0-1.0); Total Protein 7.3 g/dL (6.5-8.0)
[2023-01-20 08:32] LABS: HBS Num1 0.12 mIU/mL (0-7.99); HBc Num1 0.06 S/CO (0.00-0.79); Hepatitis B Core Antibody Nonreactive (Nonreactive); Hepatitis B Surface Antigen Negative (Negative); ~HepC Num1 0.07 S/CO (0.00-0.79); ~Hepatitis B Surface Antibody NONREACTIVE (Nonreactive); ~Hepatitis C Antibody Nonreactive (Nonreactive)
== END 2023-01-19 10:41 | disposition home or self-care (01) ==
LOC: HO.LAB 10:40
PROVIDERS: PCP Internal Medicine; Visit Provider Internal Medicine
DX: R79.89 Other specified abnormal findings of blood chemistry (principal)
CPT/HCPCS: 36415; 80076; 86704; 86706; 86803; 87340

== ENCOUNTER 2023-01-23 10:55 | Outpatient (AMB) | payer OTHER, SELFPAY ==
[2023-01-23 10:56] VITALS: BP 102/80; PULSE 88; O2SAT 99; BMI 23.7
--- NOTE | 2023-01-23 10:56 | A.OFFPC_ITS ---
Vital Signs 01/23/23 10:56 Height 5 ft 3 in Weight 134 lb BMI 23.7 BP 102/80 Blood Pressure Location Lt brachial Position Sitting Pulse 88 Pulse Source Pulse Oximeter Temp Source Skin Pulse Oximetry (%) 99 Oxygen Delivery Method Room Air Intake Visit Reasons: Asthma Cad Intern Required: No Allergies Seasonal Allergies Allergy (Intermediate, Verified 01/23/23 10:57) Itchy Eyes Medication List - Last Reconciled 01/23/23 by Neel Duque, acetaminophen (Tylenol Extra Strength) 500 mg PO Q6H PRN albuterol sulfate 90 mcg/actuation (Ventolin HFA) 2 puffs inhalation Q6H PRN fexofenadine (Samantha Allergy) 180 mg PO DAILY fluticasone propion-salmeterol 113-14 mcg/actuation (AirDuo RespiClick) 1 inh inhalation BID ibuprofen 600 mg PO Q6H ondansetron 4 mg PO Q6-8H PRN psyllium husk (Fiber Laxative (psyllium husk)) 1.04 grams (2 x 0.52 gram) PO BEDTIME PRN Tobacco use date assessed: 01/23/23 Dental Screening Dental Screen Date: 01/23/23 Did you have a dental visit in the last 12 months?: Yes Did you have a dental problem in the last 6 months where you did not have access to dental care?: No Was dental information given to patient?: Patient has dentist HPI Asthma HPI Details 22 Old female with elevated liver function test asthma constipation last seen in October 2022 patient was given a steroid inhaler as well as laxative and is here for follow-up. Review of the notes November 2022 seen for upper respiratory tract infection treated as viral pharyngitis. A few days prior to that diagnosis of nausea/gastroenteritis still has some soft stools but not diarrhea. Discussed about the stool softener that it can do that and to hold off the fiber laxative to see if the stools come normal. As for the inhalers the steroid inhaler is helping and will continue to do this patient is cautioned about pot smoking as this can trigger the asthma [facility] Medical History Anxiety and depression Asthma Cough Cough due to LYNN inhibitor Low back pain Migraine with aura Seasonal allergies Family History Paternal Grandmother Breast CA Mother Crohn disease Father Migraine Brother Bipolar 1 disorder Maternal Grandmother Heart disease Maternal Aunt Colon cancer Other Mental health disorder Social History Housing: Apartment Alcohol intake: never Patient Tobacco Use Status: Never used Tobacco e-Cigarette/Vaping Use: Never Used Second Hand Smoke Exposure: No Substance Use Type: Marijuana service: No Current occupational status: employed Current occupation: [employer]ING [employer] Sexual orientation: Straight/Heterosexual Gender identity: Female Cognitive needs: No Hearing needs: No Vision needs: No Female Reproductive History Menstrual Age of Menarche: 12 Questionnaire Thrive Questionnaire Date Thrive assessed: 10/07/22 AUDIT C Alcohol Use Questionnaire (AUDIT-C) 1. How often do you have a drink containing alcohol?: Never 2. How many drinks containing alcohol do you have on a typical day when you are drinking?: 1 or 2 (0) 3. How often do you have six or more drinks on one occasion?: Never Total Score: 0 ELVA-7 AMB Questionnaire ELVA-7 Date ELVA - 7 assessed: 10/07/22 Source: Developed by Drs. Reji Yee, Jennifer Majano, Keanu Arce and colleagues, with an educational girma from [employer]. Physical exam (Primary Care) Vital Signs: Last Vital Signs Pulse 88 01/23/23 10:56 BP 102/80 01/23/23 10:56 Pulse Ox 99 01/23/23 10:56 Oxygen Delivery Method Room Air 01/23/23 10:56 BMI result Body Mass Index 23.7 Tobacco/Smoking Status: Tobacco use Status Tobacco use date assessed 01/23/23 01/23/23 11:04 Patient Tobacco Use Status Never used Tobacco 01/23/23 11:04 e-Cigarette/Vaping Use Never Used 01/23/23 11:04 Thrive Assessment: Date of Thrive Assessment Date Thrive assessed 10/07/22 01/23/23 11:04 Const General: alert; No acute distress Eyes Conjunctivae: conjunctivae normal Resp Auscultation: clear to auscultation bilaterally Cardio Rate: regular rate Rhythm: regular rhythm GI Inspection: Yes normal to inspection Extrem General: Yes normal to inspection and No edema Assessment and Plan Assessment & Plan (1) Constipation: Code(s): K59.00 - Constipation, unspecified Plan: Three rules for constipation 1. Diet need to have a high fiber diet less of meat 2. Increase oral fluids 3. Exercise. Laxative effect may cause diarrhea and patient is caution (2) Asthma: Code(s): J45.909 - Unspecified asthma, uncomplicated Plan: continue with inhaler, steroid inhaler/controller helping, discuss concern on smoking pot (3) Elevated liver function tests: Code(s): R79.89 - Other specified abnormal findings of blood chemistry Plan: lab work repeated normal results. Will continue to follow-up Medications: Refilled ondansetron 4 mg PO Q6-8H PRN 7 tabs 0RF nausea and vomiting Coding Level of Care Code Est Pt Level 4 (45907) Diagnoses Constipation K59.00 Asthma J45.909 Elevated liver function tests R79.89
== END 2023-01-23 11:21 | disposition home or self-care (01) ==
PROVIDERS: PCP Internal Medicine; Visit Provider Internal Medicine
DX: K59.00 Constipation, unspecified (principal); J45.909 Unspecified asthma, uncomplicated; R79.89 Other specified abnormal findings of blood chemistry
CPT/HCPCS: 99214

== ENCOUNTER 2023-02-11 10:45 | Emergency (ER) | payer OTHER, SELFPAY ==
--- NOTE | ~2023-02-11 | US_ITS ---
EXAMINATION: US PELVIS CLINICAL INFORMATION: Lower pelvic pain. PID. Rule out TOA COMPARISON: None available. TECHNIQUE: Ultrasound of the pelvis is performed using both transabdominal and transvaginal transducers along with Doppler. Transvaginal imaging is performed due to inadequate visualization transabdominally. FINDINGS: Uterus: The uterus is retroverted and measures 6.0 x 3.4 x 4.2 cm. The double wall endometrial thickness is 0.14 cm. The uterus is smooth in contour and has normal myometrial echogenicity. No visible fibroid. Adnexa: Both ovaries are visualized. There is normal color flow to the adnexa. There is no ovarian torsion. There is no pelvic ascites or fluid collection. Right ovary measures 2.8 x 1.9 x 1.6 cm and volume 4.5 mL. It appears unremarkable. Previously right ovary measured 3.9 x 1.2 x 1.2 cm. Left ovary measures 3.1 x 2.6 x 1.7 cm and volume 7.2 mL. The ovaries are unremarkable. Previously left ovary measured 2.6 x 1.2 x 1.3). There are dilated pelvic and uterine vessels suggestive of mild pelvic congestion. US/US pelvic and transvaginal IMPRESSION: Unremarkable uterus and ovaries. Mild pelvic vascular congestion
[2023-02-11 10:55] VITALS: BP 122/68; PULSE 93; RESP 17; TEMP 36.2; O2SAT 98; BMI 23.7
[2023-02-11 11:22] LABS: Appearance Urine Clear; Color Urine Yellow; Glucose Urine UA Negative (Negative); Leukocyte Esterase Urine Negative (Negative); Nitrite Urine Negative (Negative); Urine Blood Negative (Negative); Urine Ketones Negative (Negative); Urine Protein Negative (Neg-Trace)
[2023-02-11 11:25] LABS: UPreg QC Valid YES; Urine Pregnancy NEGATIVE (NEGATIVE)
--- NOTE | 2023-02-11 12:09 | ED.ABDPAIN ---
HPI - Abdominal Pain General Chief Complaint: Abdominal Pain Stated Complaint: pelvic inflamatory pain Time Seen by Provider: 02/11/23 12:32 Source: patient and RN notes reviewed Mode of arrival: ambulatory Limitations: no limitations History of Present Illness HPI narrative: This is a 22-year-old female, presenting to the emergency department for evaluation of pelvic pain x4 days. Patient was told that she has PID and bacterial vaginosis. She was started on Flagyl on Monday which he has been taking without any relief. Patient denies any fevers or chills. She endorses nausea and vomiting. Denies diarrhea, constipation, dysuria, hematuria, urinary frequency or urgency. Denies any other complaints or concerns at this time. MD elicited complaint: abdominal pain Pertinent past history: none Pain Consistency: constant Location: none Severity: moderate Quality: cramping Radiation: none Migration to: no migration Exacerbating factors: nothing Relieving factors: nothing Associated symptoms: nausea and vomiting Related Data Previous Rx's Medication Instructions Recorded fexofenadine 180 mg tablet 180 mg PO DAILY #30 tabs 08/26/22 (Samantha Allergy) psyllium husk 0.52 gram capsule 1.04 g PO BEDTIME PRN constipation 11/23/22 (Fiber Laxative (psyllium husk)) #60 caps albuterol sulfate 90 mcg/actuation 2 puff inhalation Q6H PRN 11/24/22 aerosol inhaler (Ventolin HFA) shortness of breath or wheezing #8.5 grams fluticasone 113 mcg-salmeterol 14 1 inh inhalation BID #1 ea 11/29/22 mcg/actuation breath activated powdr (AirDuo RespiClick) acetaminophen 500 mg tablet 500 mg PO Q6H PRN pain #30 tabs 12/20/22 (Tylenol Extra Strength) ibuprofen 600 mg tablet 600 mg PO Q6H #45 tabs 12/20/22 ondansetron 4 mg disintegrating 4 mg PO Q6-8H PRN nausea and 01/23/23 tablet vomiting #7 tabs ketorolac 10 mg tablet 10 mg PO Q8H 3 days #9 tabs 02/11/23 Allergies Allergy/AdvReac Type Severity Reaction Status Date / Time Seasonal Allergies Allergy Intermediate Itchy Eyes Verified 01/23/23 10:57 Review of Systems Review of Systems Yes all other systems are reviewed and are negative Constitutional: Reports as per [facility] Past Medical History Medical History Anxiety and depression Asthma Cough Cough due to LYNN inhibitor Low back pain Migraine with aura Seasonal allergies Family History Family History Paternal Grandmother Breast CA Mother Crohn disease Father Migraine Brother Bipolar 1 disorder Maternal Grandmother Heart disease Maternal Aunt Colon cancer Other Mental health disorder Social History Social History Housing: Apartment Alcohol intake: never Patient Tobacco Use Status: Never used Tobacco e-Cigarette/Vaping Use: Never Used Second Hand Smoke Exposure: No Substance Use Type: Marijuana service: No Current occupational status: employed 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 Sexual orientation: Straight/Heterosexual Gender identity: Female Cognitive needs: No Hearing needs: No Vision needs: No Physical Exam ED Vital Signs: Vital Signs - 24 hr 02/11/23 10:55 02/11/23 15:53 Temperature 97.2 F 98.6 F Pulse Rate 93 71 Respiratory Rate 17 16 Blood Pressure 122/68 109/6 L Pulse Oximetry 98 99 Oxygen Delivery Method Room Air Room Air BMI result Body Mass Index 23.7 Const General: cooperative, comfortable and no acute distress Orientation/consciousness: patient oriented x3 Limitations: no limitations [facility] Head: Yes normal to inspection, Yes normocephalic and Yes atraumatic Ears: hearing grossly normal bilaterally General nose exam: Normal external nose present Face and sinus: Yes normal facial exam Mouth: Normal oral and palatal mucosa present, oropharynx normal and moist mucous membranes Throat: Yes posterior oropharynx normal Eyes General: appearance normal, both eyes and all related structures Eyelids: Yes eyelids normal Conjunctivae: conjunctivae normal Sclerae: sclerae normal Pupils: Equal, round and reactive pupils present EOM: EOMs intact bilaterally Neck Neck: Yes normal visual inspection, Yes full ROM and Yes no lymphadenopathy Lymphatic: no lymphadenopathy noted Chest Chest palpation & inspection: normal inspection of the chest Resp Effort & Inspection: normal respiratory effort and able to speak in complete sentences Auscultation: clear to auscultation bilaterally, no crackles, no rales, no rhonchi and no wheezes Cardio Rate: regular rate Rhythm: regular rhythm Heart sounds: S1 normal heart sound present and S2 normal heart sound present GI Other: Mild tenderness palpation over the suprapubic region. No rebound or guarding. Normoactive bowel sounds present in all 4 quadrants. Inspection: Yes normal to inspection Other: Moderate amount of white vaginal discharge noted to the vaginal canal, cervical motion tenderness General: Yes bladder normal to palpation External Female Exam: normal external appearance, No erythema, No externally tender, No external swelling and No External ecchymosis (female) Speculum Exam - Vagina: normal appearance of the vagina and abnormal vaginal discharge Speculum Exam - Cervix: normal appearance of the cervix Bimanual exam- vagina & uterus: uterine size normal, bladder normal to palpation and cervical motion tenderness Bimanual Exam- Adnexa, other: normal adnexae Skin General skin exam: no rashes or lesions noted Trauma: no lacerations or abrasions Wounds: no wounds Neuro General: patient oriented x3 and moves all extremities Cranial nerves: Yes Equal, round and reactive pupils present Extrem General: Yes normal to inspection Right upper extremity: normal to inspection Left upper extremity: normal to inspection Right lower extremity: normal to inspection Left lower extremity: normal to inspection Course Course Course Narrative: This is a rapid medical exam. Deferred additional HPI, ROS, PE to primary provider. 22 yo with history of asthma, migraines, chronic pelvic pain here with lower pelvic pain since Monday, white vaginal discharge. Tested for chlamydia/gonorrhea Monday and was negative. On flagyl since Monday Worsening pain/vomiting. No fevers/chills. Will obtain labs, UA, CT NG, pelvic US. Will need pelvic exam. VSS Reevaluation(s) Reevaluation #1: Patient is medical records from [facility] from hospital visit on February 07, 2023 for the same symptoms, patient did not have a white blood cell count, all other labs unremarkable, patient had a CT abdomen with IV contrast which showed no abnormalities. Pelvic ultrasound revealing no abnormalities. Prep did show 4 wbc's and glue cells indicating bacterial vaginosis, patient was given Flagyl 500 mg b.i.d. x7 days. Gonorrhea chlamydia testing was negative, Trichomonas and bacterial vaginosis panel were negative. Reevaluation #2: Patient feeling much better after receiving Toradol, pelvic exam findings concerning for pelvic inflammatory disease. She has been taking Flagyl prescribed to her 4 days ago at [facility]. She was not given ceftriaxone, doxy was sent to the pharmacy however she was unable to chart picker as her insurance was not covering it. I called over to [facility] on [address], insurance was not covering this medication as it needs to be tablets or capsules, given verbal order an air filling this medication right now. Patient given ceftriaxone and department. Advised patient that we are sending swabs out for further testing and will call her with any abnormal results. Encouraged to follow-up with her OBGYN regarding this visit. Given strict return precautions if any new or worsening symptoms occur. Patient stable for discharge. Medical Decision Making Medical Decision Making [facility] Narrative: 22-year-old female presenting to the emergency department for evaluation of suprapubic pain x4 days. Patient reports that the pain waxes and wanes in severity. She has had similar symptoms many times in the past, has been seen by multiple providers including GI, OBGYN, and has had a negative workup. She was previously seen at [facility] on the same day she developed her symptoms, she had a CT abdomen and pelvis, ultrasound, pelvic ultrasound, and negative pelvic testing. She has not been sexually active for the last 4 days. Differential Diagnosis Differential Diagnoses: The differential diagnosis associated with the presentation includes Gonorrhea, chlamydia, pelvic inflammatory disease, ovarian cyst, ovarian torsion, Admission/Observation Consideration of admission/observation: Escalation of care including admission/observation considered Lab Data [facility] Lab Attestation statement: I reviewed the patient's lab results. 02/11/23 12:38 02/11/23 12:38 Labs: Lab Results 02/11/23 02/11/23 02/11/23 Range/Units 11:11 11:11 12:38 WBC 8.5 (4.8-10.8) X10*3/uL RBC 5.86 H (4.20-5.50) X10*6/uL Hgb 16.0 (12.0-16.0) g/dl Hct 46.5 (37.0-47.0) % MCV 79.4 L (80.0-98.0) fL MCH 27.3 (27.0-33.0) pg MCHC 34.4 (31.0-35.0) g/dl RDW 13.0 (11.0-16.0) % Plt Count 281 (160-400) X10*3/uL MPV 10.1 (9.4-12.3) fL Immature Gran % (Auto) 0.4 (0.0-0.4) % Neut % (Auto) 73.9 H (45-73) % Lymph % (Auto) 19.4 L (20-40) % [place] % (Auto) 5.4 (2-11) % Eos % (Auto) 0.5 (0-4) % Baso % (Auto) 0.4 (0-2) % Lymph # (Auto) 1.7 (1.2-4.9) X10*3/uL [place] # (Auto) 0.5 (0.1-1.2) X10*3/uL Eos # (Auto) 0.0 (0.0-0.4) X10*3/uL Baso # (Auto) 0.0 (0.0-0.2) X10*3/uL Abs Immat Gran (auto) 0.03 (0.00-0.03) X10*3/uL Absolute Neuts (auto) 6.3 (2.0-8.3) x10*3/uL Absolute Nucleated RBC 0.000 (0.0-0.012) X10*3/uL Nucleated RBC % (auto) 0.0 (0.0-0.2) /100WBC Sodium (135-145) mmol/L Potassium (3.3-5.1) mmol/L Chloride (96-108) mmol/L Carbon Dioxide (22-29) mmol/L Anion Gap (12-20) BUN (9-16) mg/dL Creatinine (0.5-1.4) mg/dL Estim Creat Clear Calc Estimated GFR Random Glucose (60-115) mg/dL Calcium (8.4-10.2) mg/dL Total Bilirubin (0.0-1.0) mg/dL Direct Bilirubin (0.0-0.5) mg/dL AST (5-31) U/L ALT (0-31) U/L Alkaline Phosphatase (39-117) U/L Total Protein (6.5-8.0) g/dL Albumin (3.5-5.0) g/dL Lipase (8-78) U/L Urine Color Yellow Urine Appearance Clear Urine pH 6.0 (5.0-9.0) Ur Specific [place] 1.010 (1.005-1.025) Urine Protein Negative (Neg-Trace) mg/dL Urine Glucose (UA) Negative (Negative) mg/dL Urine Ketones Negative (Negative) mg/dL Urine Blood Negative (Negative) Urine Nitrite Negative (Negative) Ur Leukocyte Esterase Negative (Negative) Urine Test NEGATIVE (NEGATIVE) Chlam trachomat DNA PCR (Not Detect.) N.gonorrhoeae DNA (PCR) (Not Detect.) 02/11/23 02/11/23 Range/Units 12:38 15:59 WBC (4.8-10.8) X10*3/uL RBC (4.20-5.50) X10*6/uL Hgb (12.0-16.0) g/dl Hct (37.0-47.0) % MCV (80.0-98.0) fL MCH (27.0-33.0) pg MCHC (31.0-35.0) g/dl RDW (11.0-16.0) % Plt Count (160-400) X10*3/uL MPV (9.4-12.3) fL Immature Gran % (Auto) (0.0-0.4) % Neut % (Auto) (45-73) % Lymph % (Auto) (20-40) % [place] % (Auto) (2-11) % Eos % (Auto) (0-4) % Baso % (Auto) (0-2) % Lymph # (Auto) (1.2-4.9) X10*3/uL [place] # (Auto) (0.1-1.2) X10*3/uL Eos # (Auto) (0.0-0.4) X10*3/uL Baso # (Auto) (0.0-0.2) X10*3/uL Abs Immat Gran (auto) (0.00-0.03) X10*3/uL Absolute Neuts (auto) (2.0-8.3) x10*3/uL Absolute Nucleated RBC (0.0-0.012) X10*3/uL Nucleated RBC % (auto) (0.0-0.2) /100WBC Sodium 141 (135-145) mmol/L Potassium 4.1 D (3.3-5.1) mmol/L Chloride 112 H (96-108) mmol/L Carbon Dioxide 21 L (22-29) mmol/L Anion Gap 12 (12-20) BUN 10 (9-16) mg/dL Creatinine 0.65 (0.5-1.4) mg/dL Estim Creat Clear Calc 111.4 Estimated GFR > 60 Random Glucose 101 (60-115) mg/dL Calcium 10.4 H (8.4-10.2) mg/dL Total Bilirubin 0.4 (0.0-1.0) mg/dL Direct Bilirubin 0.2 (0.0-0.5) mg/dL AST 23 (5-31) U/L ALT 34 H (0-31) U/L Alkaline Phosphatase 73 (39-117) U/L Total Protein 8.2 H (6.5-8.0) g/dL Albumin 4.9 (3.5-5.0) g/dL Lipase 18 (8-78) U/L Urine Color Urine Appearance Urine pH (5.0-9.0) Ur Specific [place] (1.005-1.025) Urine Protein (Neg-Trace) mg/dL Urine Glucose (UA) (Negative) mg/dL Urine Ketones (Negative) mg/dL Urine Blood (Negative) Urine Nitrite (Negative) Ur Leukocyte Esterase (Negative) Urine Test (NEGATIVE) Chlam trachomat DNA PCR NOT DETECTED (Not Detect.) N.gonorrhoeae DNA (PCR) NOT DETECTED (Not Detect.) Radiology Impression Discussion of test interpretation with radiology: I have reviewed the radiologist's reading. External Record Review External record reviewed: Inpatient record, Office record, Outpatient record, Prior outpatient labs, Prior outpatient radiology, Primary care record and Outside ED record Medications Administered Discontinued Medications Generic Name Dose Route Start Last Admin Trade Name Freq PRN Reason Stop Dose Admin Ceftriaxone Sodium 500 mg/ 0 mg 02/11/23 15:54 02/11/23 16:10 Lidocaine HCl 1 ml IM 02/11/23 15:55 1 kit ONCE ONE Administration Ketorolac Tromethamine 30 mg 02/11/23 13:35 02/11/23 13:45 Ketorolac Tromethamine 30 Mg/Ml Vial IVPUSH 02/11/23 13:36 30 mg ONCE ONE Administration Ondansetron HCl 4 mg 02/11/23 13:35 02/11/23 13:45 Ondansetron Hcl 4 Mg/2 Ml Vial IVPUSH 02/11/23 13:36 4 mg ONCE ONE Administration Discharge Plan Discharge Clinical Impression: Acute pelvic inflammatory disease Patient Disposition: Home, Self-Care Instructions: Pelvic Inflammatory Disease (ED), Pelvic Pain in Women (ED) Additional Instructions: Your exam findings are concerning for pelvic inflammatory disease. Please continue taking prescribed Flagyl that you were given at [facility]. Please chart picker doxycycline prescription at your pharmacy today. Finish the entire course even if your feeling better. We are sending your swabs at for further testing, we will call you with any abnormal results. Please follow-up with your OBGYN. I am also sending you Toradol, do not take this with any NSAIDs (Ibuprofen, naprosyn). You may take Tylenol. If any new or worsening symptoms occur, please return for re-evaluation. Prescriptions: New ketorolac 10 mg tablet 10 mg PO Q8H 3 Days Qty: 9 0RF Rx Instructions: Patient tolerated Toradol IM injection and emergency department on 02/11/2023 No Action fexofenadine [Samantha Allergy] 180 mg tablet 180 mg PO DAILY Qty: 30 1RF albuterol sulfate [Ventolin HFA] 90 mcg/actuation HFA aerosol inhaler 2 puff inhalation Q6H PRN (Reason: shortness of breath or wheezing) Qty: 8.5 0RF fluticasone propion-salmeterol [AirDuo RespiClick] 113-14 mcg/actuation aerosol powdr breath activated 1 inh inhalation BID Qty: 1 5RF acetaminophen [Tylenol Extra Strength] 500 mg tablet 500 mg PO Q6H PRN (Reason: pain) Qty: 30 0RF ibuprofen 600 mg tablet 600 mg PO Q6H Qty: 45 0RF psyllium husk [Fiber Laxative (psyllium husk)] 0.52 gram capsule 1.04 g PO BEDTIME PRN (Reason: constipation) Qty: 60 3RF ondansetron 4 mg tablet,disintegrating 4 mg PO Q6-8H PRN (Reason: nausea and vomiting) Qty: 7 0RF Interventions: ED Discharge Assessment Last Done: 02/11/23 16:23 Discharge Date/Time: 02/11/23 16:26
[2023-02-11 12:43] LABS: Basophils Percent Auto 0.4 % (0-2); Eosinophils Percent Auto 0.5 % (0-4); Hematocrit 46.5 % (37.0-47.0); Imm Gran Abs Auto 0.03 X10*3/uL (0.00-0.03); Imm Gran Pct Auto 0.4 % (0.0-0.4); Lymphocytes Absolute Auto 1.7 X10*3/uL (1.2-4.9); Lymphocytes Percent Auto 19.4 % (20-40); MANUAL DIFF FLAG NO; Mean Corpuscular HGB Conc 34.4 g/dl (31.0-35.0); Mean Corpuscular Hemoglobin 27.3 pg (27.0-33.0); Mean Corpuscular Volume 79.4 fL (80.0-98.0); Mean Platelet Volume 10.1 fL (9.4-12.3); Monocytes Absolute Auto 0.5 X10*3/uL (0.1-1.2); Monocytes Percent Auto 5.4 % (2-11); Neutrophils Absolute Auto 6.3 x10*3/uL (2.0-8.3); Neutrophils Percent Auto 73.9 % (45-73); Platelet Count 281 X10*3/uL (160-400); Red Blood Count 5.86 X10*6/uL (4.20-5.50); White Blood Count 8.5 X10*3/uL (4.8-10.8)
[2023-02-11 12:58] LABS: Alanine Aminotransferase 34 U/L (0-31); Albumin Level 4.9 g/dL (3.5-5.0); Alkaline Phosphatase 73 U/L (39-117); Anion Gap 12 (12-20); Aspartate Amino Transferase 23 U/L (5-31); Bilirubin Direct 0.2 mg/dL (0.0-0.5); Bilirubin Total 0.4 mg/dL (0.0-1.0); Blood Urea Nitrogen 10 mg/dL (9-16); Calcium 10.4 mg/dL (8.4-10.2); Carbon Dioxide 21 mmol/L (22-29); Chloride 112 mmol/L (96-108); Creatinine Clr Calc Pharmacy 111.4; Estimated Glomerular Filt Rate > 60; Glucose Random 101 mg/dL (60-115); Lipase 18 U/L (8-78); Potassium 4.1 mmol/L (3.3-5.1); Sodium 141 mmol/L (135-145); Total Protein 8.2 g/dL (6.5-8.0)
[2023-02-11] MEDS: Ketorolac Tromethamine 30 MG/ML VIAL IVPUSH (13:45)
[2023-02-11] MEDS: ondansetron HCL 4 MG/2 ML VIAL IVPUSH (13:45)
[2023-02-11 15:53] VITALS: BP 109/6; PULSE 71; RESP 16; TEMP 37; O2SAT 99
--- NOTE | 2023-02-11 16:05 | MHC.EDTECH ---
THIS PCT ASSUMED CARE OF PATIENT @ 1500 THIS PCT CONFERENCE ORGANIZER PROVIDER DURING PATIENT PELVIC EXAM ,VAGINAL SWAB COLLECTED AND SENT TO LAB ,VITALS SIGN TAKEN ,PT WATCHING TELEVISION IN BED ,VISITOR AT BEDSIDE .
[2023-02-11] MEDS: cefTRIAXone sodium 500 MG, Lidocaine HCl 1 % MPF 1 ML IM (16:10)
[2023-02-12 02:34] LABS: CT PCR NOT DETECTED (Not Detect.); NG PCR NOT DETECTED (Not Detect.)
[2023-02-12 14:47] LABS: BV Int Neg Control Negative (Negative); BV Int Pos Control Positive (Positive)
== END 2023-02-11 16:26 | disposition home or self-care (01) ==
PROVIDERS: Nurse Practitioner Family; Emergency Provider Emergency Medicine; PCP Internal Medicine
DX: N73.0 Acute parametritis and pelvic cellulitis (principal)
CPT/HCPCS: 0353U; 36415; 76830; 76856; 80048; 80076; 81003; 81025; 83690; 85025; 87480; 87510; 87660; 96372; 96374; 96375; 99284; J0696; J1885; J2405

== ENCOUNTER 2023-02-12 09:31 | Emergency (ER) | payer OTHER, SELFPAY ==
[2023-02-12 09:53] VITALS: BP 118/55; PULSE 91; RESP 20; TEMP 36.9; O2SAT 99; BMI 23.0
--- NOTE | 2023-02-12 09:55 | ED.GENADULT ---
HPI - General Adult General Chief complaint: General Medical Stated complaint: abd pain worsen Time Seen by Provider: 02/12/23 09:41 Source: patient, family and RN notes reviewed Mode of arrival: ambulatory Limitations: no limitations History of Present Illness HPI narrative: This is a 22-year-old female, with a past medical history of asthma, and chronic pelvic pain, presenting to the emergency department for continued pelvic pain. Patient was seen in the emergency department yesterday, after having pelvic pain for the last 5 days. She was seen at [facility] where she had a extensive testing including a CAT scan, ultrasound, vaginosis panel, gonorrhea and chlamydia testing without any findings. She was started on Flagyl which she has been taking up until Monday. She was seen in the emergency department yesterday and was evaluated by me, she had clinical findings suggestive of pelvic inflammatory disease, and I prescribed doxycycline and given her ceftriaxone. She was urged to follow-up with OBGYN for further management of her symptoms. She states that when she left the ER yesterday she was unable to picker her prescriptions. She states that overnight she developed worsening pelvic pain. Endorsing nausea and vomiting. Of note, patient has been dealing with pelvic pain for the last 4 years. She has gone to the emergency department 5 times within the last 3 years for pelvic pain, without any acute findings. MD complaint: Pelvic pain Onset (ago): day(s) Radiation: non-radiation Quality: aching Pain Consistency: constant Relieving factors: none Exacerbating factors: none Associated symptoms: nausea/vomiting Treatments prior to arrival: none Related Data Home Medications Medication Instructions Recorded Confirmed doxycycline hyclate 50 mg capsule 50 mg PO BID 02/16/23 02/16/23 ketorolac 10 mg tablet 10 mg PO Q8H 02/16/23 02/16/23 metronidazole 500 mg tablet 500 mg PO Q12H 02/16/23 02/16/23 Previous Rx's Medication Instructions Recorded ondansetron 4 mg disintegrating 4 mg PO Q6-8H PRN nausea and 02/12/23 tablet vomiting #10 tabs ondansetron 4 mg disintegrating 4 mg PO Q8H PRN nausea and 02/16/23 tablet vomiting #14 tabs Allergies Allergy/AdvReac Type Severity Reaction Status Date / Time Seasonal Allergies Allergy Intermediate Itchy Eyes Verified 02/16/23 15:04 Review of Systems Review of Systems: Yes all other systems are reviewed and are negative Constitutional: Constitutional: Reports as per [facility] Past Medical History Medical History Anxiety and depression Asthma Cough Cough due to LYNN inhibitor Low back pain Migraine with aura Seasonal allergies Surgical History No pertinent past surgical history Family History Family History Paternal Grandmother Breast CA Mother Crohn disease Father Migraine Brother Bipolar 1 disorder Maternal Grandmother Heart disease Maternal Aunt Colon cancer Other Mental health disorder Social History Social History Housing: Apartment Alcohol intake: never Patient Tobacco Use Status: Never used Tobacco e-Cigarette/Vaping Use: Never Used Second Hand Smoke Exposure: No Substance Use Type: Marijuana service: No Current occupational status: employed 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 Current occupational exposures/hazards: No Sexual orientation: Straight/Heterosexual Gender identity: Female Cognitive needs: No Hearing needs: No Vision needs: No Physical Exam ED Vital Signs: Vital Signs - 24 hr 02/12/23 09:53 02/12/23 12:43 Temperature 98.4 F 98.3 F Pulse Rate 91 75 Respiratory Rate 20 14 Blood Pressure 118/55 L 107/60 Pulse Oximetry 99 100 Oxygen Delivery Method Room Air Room Air BMI result Body Mass Index 23.0 Const Other: Tearful given pelvic pain General: cooperative and healthy appearing Orientation/consciousness: patient oriented x3 Limitations: no limitations [facility] Head: Yes normal to inspection, Yes normocephalic and Yes atraumatic Ears: hearing grossly normal bilaterally General nose exam: Normal external nose present Face and sinus: Yes normal facial exam Mouth: Normal oral and palatal mucosa present, oropharynx normal and moist mucous membranes Throat: Yes posterior oropharynx normal Eyes General: appearance normal, both eyes and all related structures Eyelids: Yes eyelids normal Conjunctivae: conjunctivae normal Sclerae: sclerae normal Pupils: Equal, round and reactive pupils present EOM: EOMs intact bilaterally Neck Neck: Yes normal visual inspection, Yes full ROM and Yes no lymphadenopathy Lymphatic: no lymphadenopathy noted Chest Chest palpation & inspection: normal inspection of the chest Resp Effort & Inspection: normal respiratory effort and able to speak in complete sentences Auscultation: clear to auscultation bilaterally, no crackles, no rales, no rhonchi and no wheezes Cardio Rate: regular rate Rhythm: regular rhythm Heart sounds: S1 normal heart sound present and S2 normal heart sound present GI Other: TTP in the suprapubic region, no rebound or guarding Skin General skin exam: no rashes or lesions noted Trauma: no lacerations or abrasions Wounds: no wounds Neuro General: patient oriented x3 and moves all extremities Cranial nerves: Yes Equal, round and reactive pupils present Extrem General: Yes normal to inspection Right upper extremity: normal to inspection Left upper extremity: normal to inspection Right lower extremity: normal to inspection Left lower extremity: normal to inspection Course Reevaluation(s) Reevaluation #1: Patient's symptoms improved after receiving Ativan, ibuprofen and Zofran. She is able to answer more questions. Patient has mild tenderness to palpation in the suprapubic region, otherwise abdomen is soft. I discussed with patient that at times pelvic pain can present in woman with trauma history. Patient denies any sort of sexual trauma history in the past or in her upbringing. I discussed at length that we have exhausted all medical diagnostics within this past week. She has had 3 emergency department visits for the same pain. She has no leukocytosis on examination, H&H is stable. Chemistry within normal limits. Urine does have leuk esterases however is not a clean-catch sample, will not treat for urinary tract infection at this time. I discussed in urgency importance of following up with her OBGYN as this needs to be further investigated and managed outpatient as we no longer have any services or additional tests to order on her. Patient also reports that she has had diarrhea for the last month and would like her stool tested. Time: 11:20 Medications Administered Discontinued Medications Generic Name Dose Route Start Last Admin Trade Name Huong PRN Reason Stop Dose Admin Ibuprofen 800 mg 02/12/23 09:53 02/12/23 10:21 Ibuprofen 800 Mg Tablet PO 02/12/23 09:54 800 mg ONCE ONE Administration Lorazepam 2 mg 02/12/23 09:53 02/12/23 10:21 Lorazepam 1 Mg Tablet PO 02/12/23 09:54 2 mg ONCE ONE Administration Ondansetron HCl 4 mg 02/12/23 10:00 02/12/23 10:05 Ondansetron Odt 4 Mg Tab.Digna WILKINS 02/12/23 10:01 4 mg ONCE ONE Administration Medical Decision Making Medical Decision Making [facility] Narrative: This is a 22-year-old female presenting to the emergency department for evaluation of pelvic pain. Patient has had chronic pelvic pain for the last 4 years, and has been seen in the emergency department multiple times for this same issue. Most recently was seen and evaluated by me yesterday. She had clinical findings suggestive of pelvic inflammatory disease, she has been taking Flagyl, however informs me today that she has been noncompliant with Flagyl and discontinued this on Monday. She received ceftriaxone yesterday, and was prescribed doxycycline which she was unable to picker at the pharmacy. She was also given Toradol tablets, which she also was not able to picker at the pharmacy yesterday. She is presenting today with continued pelvic pain. On arrival, patient tearful and anxious, moaning. I discussed this with my attending physician, Dr. Rankin. At this point we have exhausted all medical resources as she has already had a CT abdomen, multiple pelvic ultrasounds this week, negative swabs, negative urine. She has been not compliant with taking medications as prescribed, and has not been seen by OBGYN. It is unclear whether not this has a psychiatric component to it. Current condition needs to be followed by OBGYN outpatient. Plan: Repeat CBC, BMP, obtain UA. Will medicate with Zofran, Ativan, Motrin 800 mg Differential Diagnosis Differential Diagnoses: The differential diagnosis associated with the presentation includes Chronic pelvic pain, PID, urinary tract infection Lab Data 02/12/23 10:29 02/12/23 10:29 Labs: Lab Results 02/12/23 02/12/23 02/12/23 Range/Units 10:12 10:29 10:29 WBC 10.1 (4.8-10.8) X10*3/uL RBC 5.69 H (4.20-5.50) X10*6/uL Hgb 15.5 (12.0-16.0) g/dl Hct 44.8 (37.0-47.0) % MCV 78.7 L (80.0-98.0) fL MCH 27.2 (27.0-33.0) pg MCHC 34.6 (31.0-35.0) g/dl RDW 13.1 (11.0-16.0) % Plt Count 307 (160-400) X10*3/uL MPV 10.1 (9.4-12.3) fL Immature Gran % (Auto) 0.4 (0.0-0.4) % Neut % (Auto) 77.1 H (45-73) % Lymph % (Auto) 16.7 L (20-40) % Pinal % (Auto) 4.9 (2-11) % Eos % (Auto) 0.5 (0-4) % Baso % (Auto) 0.4 (0-2) % Lymph # (Auto) 1.7 (1.2-4.9) X10*3/uL Pinal # (Auto) 0.5 (0.1-1.2) X10*3/uL Eos # (Auto) 0.1 (0.0-0.4) X10*3/uL Baso # (Auto) 0.0 (0.0-0.2) X10*3/uL Abs Immat Gran (auto) 0.04 H (0.00-0.03) X10*3/uL Absolute Neuts (auto) 7.8 (2.0-8.3) x10*3/uL Absolute Nucleated RBC 0.000 (0.0-0.012) X10*3/uL Nucleated RBC % (auto) 0.0 (0.0-0.2) /100WBC Sodium 142 (135-145) mmol/L Potassium 3.8 (3.3-5.1) mmol/L Chloride 111 H (96-108) mmol/L Carbon Dioxide 17 L (22-29) mmol/L Anion Gap 18 (12-20) BUN 10 (9-16) mg/dL Creatinine 0.85 (0.5-1.4) mg/dL Estim Creat Clear Calc 85.1 Estimated GFR > 60 Random Glucose 106 (60-115) mg/dL Calcium 10.5 H (8.4-10.2) mg/dL Urine Color Dark Yellow Urine Appearance Cloudy Urine pH 5.5 (5.0-9.0) Ur Specific Surprise >= 1.030 H (1.005-1.025) Urine Protein 30 (1+) H (Neg-Trace) mg/dL Urine Glucose (UA) Negative (Negative) mg/dL Urine Ketones 40 (Negative) mg/dL Urine Blood Negative (Negative) Urine Nitrite Negative (Negative) Ur Leukocyte Esterase Trace H (Negative) Urine RBC 0-2 (0-2) /HPF Urine WBC 0-5 (0-5) /HPF Ur Squamous Epith Cells 11-20 (0-2) /HPF Urine Bacteria None Seen (None Seen) Hyaline Casts 0-2 (0-2) /LPF Stl C. cayetanensis PCR (Not Detect.) Stool Rotavirus A PCR (Not Detect.) Stl Adenov F 40/41 PCR (Not Detect.) Stool Astrovirus (PCR) (Not Detect.) Stool Campylobacter PCR (Not Detect.) Stool Cryptosporidium PCR (Not Detect.) Stl Sh Tox Pr E STEC PCR (Not Detect.) Stool E coli O157 PCR (Not Detect.) Stl Enterotoxigenic E PCR (Not Detect.) Stool EPEC (PCR) (Not Detect.) Stool EAEC (PCR) (Not Detect.) Stl E. histolytica PCR (Not Detect.) Stool Giardia Lamblia PCR (Not Detect.) Stl P. shigelloides PCR (Not Detect.) Stool Salmonella PCR (Not Detect.) Stool Sapovirus (PCR) (Not Detect.) Stl Shigella/EIEC PCR (Not Detect.) St Y.enterocolitica PCR (Not Detect.) Stool Vibrio (PCR) (Not Detect.) Stl Vibrio cholerae PCR (Not Detect.) Stl Norovirus GI/GII PCR (Not Detect.) C. difficile Tox B Gene (Negative) 02/12/23 02/12/23 Range/Units 10:51 12:40 WBC (4.8-10.8) X10*3/uL RBC (4.20-5.50) X10*6/uL Hgb (12.0-16.0) g/dl Hct (37.0-47.0) % MCV (80.0-98.0) fL MCH (27.0-33.0) pg MCHC (31.0-35.0) g/dl RDW (11.0-16.0) % Plt Count (160-400) X10*3/uL MPV (9.4-12.3) fL Immature Gran % (Auto) (0.0-0.4) % Neut % (Auto) (45-73) % Lymph % (Auto) (20-40) % Pinal % (Auto) (2-11) % Eos % (Auto) (0-4) % Baso % (Auto) (0-2) % Lymph # (Auto) (1.2-4.9) X10*3/uL Pinal # (Auto) (0.1-1.2) X10*3/uL Eos # (Auto) (0.0-0.4) X10*3/uL Baso # (Auto) (0.0-0.2) X10*3/uL Abs Immat Gran (auto) (0.00-0.03) X10*3/uL Absolute Neuts (auto) (2.0-8.3) x10*3/uL Absolute Nucleated RBC (0.0-0.012) X10*3/uL Nucleated RBC % (auto) (0.0-0.2) /100WBC Sodium (135-145) mmol/L Potassium (3.3-5.1) mmol/L Chloride (96-108) mmol/L Carbon Dioxide (22-29) mmol/L Anion Gap (12-20) BUN (9-16) mg/dL Creatinine (0.5-1.4) mg/dL Estim Creat Clear Calc Estimated GFR Random Glucose (60-115) mg/dL Calcium (8.4-10.2) mg/dL Urine Color Urine Appearance Urine pH (5.0-9.0) Ur Specific Surprise (1.005-1.025) Urine Protein (Neg-Trace) mg/dL Urine Glucose (UA) (Negative) mg/dL Urine Ketones (Negative) mg/dL Urine Blood (Negative) Urine Nitrite (Negative) Ur Leukocyte Esterase (Negative) Urine RBC (0-2) /HPF Urine WBC (0-5) /HPF Ur Squamous Epith Cells (0-2) /HPF Urine Bacteria (None Seen) Hyaline Casts (0-2) /LPF Stl C. cayetanensis PCR Not Detected (Not Detect.) Stool Rotavirus A PCR Not Detected (Not Detect.) Stl Adenov F 40/41 PCR Not Detected (Not Detect.) Stool Astrovirus (PCR) Not Detected (Not Detect.) Stool Campylobacter PCR Not Detected (Not Detect.) Stool Cryptosporidium PCR Not Detected (Not Detect.) Stl Sh Tox Pr E STEC PCR Not Detected (Not Detect.) Stool E coli O157 PCR Not applicable (Not Detect.) Stl Enterotoxigenic E PCR Not Detected (Not Detect.) Stool EPEC (PCR) Not Detected (Not Detect.) Stool EAEC (PCR) Not Detected (Not Detect.) Stl E. histolytica PCR Not Detected (Not Detect.) Stool Giardia Lamblia PCR Not Detected (Not Detect.) Stl P. shigelloides PCR Not Detected (Not Detect.) Stool Salmonella PCR Not Detected (Not Detect.) Stool Sapovirus (PCR) Not Detected (Not Detect.) Stl Shigella/EIEC PCR Not Detected (Not Detect.) St Y.enterocolitica PCR Not Detected (Not Detect.) Stool Vibrio (PCR) Not Detected (Not Detect.) Stl Vibrio cholerae PCR Not Detected (Not Detect.) Stl Norovirus GI/GII PCR Not Detected (Not Detect.) C. difficile Tox B Gene NEGATIVE (Negative) Discharge Plan Discharge Clinical Impression: Pelvic pain Patient Disposition: Home, Self-Care Instructions: Pelvic Pain (ED) Additional Instructions: Your labs were reassuring today. Please take prescribed doxycycline which I sent over to your pharmacy yesterday. Please finish course of Flagyl which are prescribed to on Monday. Take prescribed Toradol which I gave you a prescription for yesterday as well. Your stool culture was unremarkable. We are still waiting on your C diff testing. I am also prescribing a medication to help treat for nausea. You need to follow-up with GI as well as OBGYN for further management of your symptoms. If any new or worsening symptoms occur, please return for re-evaluation. Prescriptions: New ondansetron 4 mg tablet,disintegrating 4 mg PO Q6-8H PRN (Reason: nausea and vomiting) Qty: 10 0RF No Action ketorolac 10 mg tablet 10 mg PO Q8H doxycycline hyclate 50 mg capsule 50 mg PO BID metronidazole 500 mg tablet 500 mg PO Q12H ondansetron 4 mg tablet,disintegrating 4 mg PO Q8H PRN (Reason: nausea and vomiting) Qty: 14 0RF Referrals: [facility] G[facility]ology Services [Provider Group] [facility] Women[facility] [Provider Group] Interventions: ED Discharge Assessment Last Done: 02/12/23 14:01 Discharge Date/Time: 02/12/23 14:01
[2023-02-12] MEDS: Ondansetron ODT 4 MG TAB.RAPDIS TRANSLINGU (10:05)
[2023-02-12] MEDS: Ibuprofen 800 MG TABLET PO (10:21)
[2023-02-12] MEDS: LORazepam 1 MG TABLET 2 MG PO (10:21)
[2023-02-12 10:32] LABS: Appearance Urine Cloudy; Color Urine Dark Yellow; Glucose Urine UA Negative (Negative); Leukocyte Esterase Urine Trace (Negative); Nitrite Urine Negative (Negative); PH 5.5 (5.0-9.0); Specific Gravity - Urine >= 1.030 (1.005-1.025); UMIC TRIGGER UACC YES; Urine Blood Negative (Negative); Urine Ketones 40 mg/dL (Negative); Urine Protein 30 (1+) mg/dL (Neg-Trace)
[2023-02-12 10:33] LABS: MANUAL DIFF FLAG NO
[2023-02-12 10:34] LABS: Basophils Percent Auto 0.4 % (0-2); Eosinophils Absolute Auto 0.1 X10*3/uL (0.0-0.4); Eosinophils Percent Auto 0.5 % (0-4); Hematocrit 44.8 % (37.0-47.0); Hemoglobin 15.5 g/dl (12.0-16.0); Imm Gran Abs Auto 0.04 X10*3/uL (0.00-0.03); Imm Gran Pct Auto 0.4 % (0.0-0.4); Lymphocytes Absolute Auto 1.7 X10*3/uL (1.2-4.9); Lymphocytes Percent Auto 16.7 % (20-40); Mean Corpuscular HGB Conc 34.6 g/dl (31.0-35.0); Mean Corpuscular Hemoglobin 27.2 pg (27.0-33.0); Mean Corpuscular Volume 78.7 fL (80.0-98.0); Mean Platelet Volume 10.1 fL (9.4-12.3); Monocytes Absolute Auto 0.5 X10*3/uL (0.1-1.2); Monocytes Percent Auto 4.9 % (2-11); Neutrophils Absolute Auto 7.8 x10*3/uL (2.0-8.3); Neutrophils Percent Auto 77.1 % (45-73); Platelet Count 307 X10*3/uL (160-400); Red Blood Count 5.69 X10*6/uL (4.20-5.50); Red Cell Distribution Width 13.1 % (11.0-16.0); White Blood Count 10.1 X10*3/uL (4.8-10.8)
[2023-02-12 10:35] LABS: Bacteria Urine None Seen (None Seen); Hyaline Casts Urine 0-2 /LPF (0-2); RBC Urine 0-2 /HPF (0-2); WBC Urine 0-5 /HPF (0-5)
[2023-02-12 10:45] LABS: Anion Gap 18 (12-20); Blood Urea Nitrogen 10 mg/dL (9-16); Calcium 10.5 mg/dL (8.4-10.2); Carbon Dioxide 17 mmol/L (22-29); Chloride 111 mmol/L (96-108); Creatinine Clr Calc Pharmacy 85.1; Estimated Glomerular Filt Rate > 60; Glucose Random 106 mg/dL (60-115); Potassium 3.8 mmol/L (3.3-5.1); Sodium 142 mmol/L (135-145)
--- NOTE | 2023-02-12 10:55 | PC.NURSE ---
pt requested to have stool tested, c/o diarrhea for a month, small mucus like bm with each urination, always feels full . GI panel sent to lab. pt resting comfortably at this time
[2023-02-12 12:43] VITALS: BP 107/60; PULSE 75; RESP 14; TEMP 36.8; O2SAT 100
[2023-02-12 13:08] LABS: Adenovirus F 40/41 Not Detected (Not Detect.); Astrovirus Not Detected (Not Detect.); Campylobacter Not Detected (Not Detect.); Cryptosporidium Not Detected (Not Detect.); Cyclospora cayetanensis Not Detected (Not Detect.); E. coli EAEC Not Detected (Not Detect.); E. coli EPEC Not Detected (Not Detect.); E. coli ETEC Not Detected (Not Detect.); E. coli STEC Not Detected (Not Detect.); Entamoeba histolytica Not Detected (Not Detect.); Giardia lamblia Not Detected (Not Detect.); Norovirus GI/GII Not Detected (Not Detect.); Plesiomonas shigelloides Not Detected (Not Detect.); Rotavirus A Not Detected (Not Detect.); Salmonella Not Detected (Not Detect.); Sapovirus Not Detected (Not Detect.); Shigella sp./EIEC Not Detected (Not Detect.); Vibrio Not Detected (Not Detect.); Vibrio Cholerae Not Detected (Not Detect.); Yersinia enterocolitica Not Detected (Not Detect.)
[2023-02-12 13:56] LABS: CDiff Gene PCR NEGATIVE (Negative)
== END 2023-02-12 14:01 | disposition home or self-care (01) ==
PROVIDERS: Physician Assistant Medical; Emergency Provider Emergency Medicine; PCP Internal Medicine
DX: R10.2 Pelvic and perineal pain (principal); F41.9 Anxiety disorder, unspecified; R11.2 Nausea with vomiting, unspecified; Z20.822 Contact with and (suspected) exposure to COVID-19; Z20.828 Contact with and (suspected) exposure to other viral communicable diseases; Z79.899 Other long term (current) drug therapy
CPT/HCPCS: 36415; 80048; 81001; 85025; 87493; 87507; 99283; 99284

== ENCOUNTER 2023-02-14 09:26 | Outpatient (AMB) | payer OTHER, SELFPAY ==
--- NOTE | 2023-02-14 09:44 | A.OFFVIS_ITS ---
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 She has had recurring pelvic pain she has also been seen in the past in various emergency rooms for this over the years. She went to [facility] about last Monday then she went to [facility] ER Monday or Monday and then she went to [facility] yesterday. She has been evaluated and treated for presumed pelvic inflammatory disease and bacterial vaginosis and she has had CT scans and to different ultrasounds in the recent week as well as lab work she has been prescribed various pain medications including Toradol and did have an injection of morphine at 1 point in the 1 of the ERs and also ibuprofen as well as Flagyl and doxy Cyclen to various prescriptions and she was also given IM ceftriaxone in 1 of the emergency rooms. She is here accompanied by her mother. She has also had diarrhea though she is has not been eating very much so she has not been producing as much she feels bloated all the time. She is concerned about what the issue could be although she was treated in the past at [facility] with injections in her lower abdomen and was told at [facility] that they will be calling her to make an appointment to come in for these again because they were the only thing that helped her. She and her mother worry about various ovarian cysts or ovarian cancer and her mother is beginning to think that she might have Crohn's disease because the mother has Crohn's disease and other family members also have various intestinal problems. She has had full workups in both institutions. She has not been sexually active since September as her boyfriend is away in another state and her plan is to use condoms she has used variously Depo-Provera pills and Nexplanon in the past her last Depo shot was in July she says she has not had a period in size very many months. [facility] Medical History Anxiety and depression Asthma Cough Cough due to LYNN inhibitor Low back pain Migraine with aura Seasonal allergies Family History Paternal Grandmother Breast CA Mother Crohn disease Father Migraine Brother Bipolar 1 disorder Maternal Grandmother Heart disease Maternal Aunt Colon cancer Other Mental health disorder Social History Housing: Apartment Alcohol intake: never Patient Tobacco Use Status: Never used Tobacco e-Cigarette/Vaping Use: Never Used Second Hand Smoke Exposure: No Substance Use Type: Marijuana service: No Current occupational status: employed 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 Sexual orientation: Straight/Heterosexual Gender identity: Female Cognitive needs: No Hearing needs: No Vision needs: No Female Reproductive History Menstrual Age of Menarche: 12 Total pregnancies: 1 Number of Living Children: 1 Physical Exam Vital Signs: Last Vital Signs BP 110/70 02/14/23 09:45 BMI result Body Mass Index 23.4 Const Other: Patient is in no acute distress today and able to converse well and is smiling she reports the pain is being lower abdominal when she gets it today on soft and deep palpation she is nontender abdominally pelvic exam is not indicated and not repeated today as patient has had complete evaluations and is being treated for both PID and BV at this time testing and other institutions has been negative. And will not be repeated today. Assessment & Plan Assessment & Plan (1) Pelvic pain: Comment: [place] ? Pelvic congestion syndrome/02/14/23-status post 3 ER visits in last week being treated for PID and BV. Has had diarrhea testing pending will be following up with [facility] and gastrointestinal. Code(s): R10.2 - Pelvic and perineal pain (2) control counseling: Comment: Has used pills Depo and Nexplanon. Currently abstinent secondary pain and absence of partner declines options other than condoms. Code(s): Z30.09 - Encounter for other general counseling and advice on contraception Plan At this point it appears that she has been very well screened and evaluated in both institutions and a plan has been made for follow-up and treatment she is to continue on the doxy Cyclen and Flagyl and follow-up with [facility] as planned and also with her PCC and Gastroenterology as recommended. I recommend also continuing her clear fluids as she is drinking and staying hydrated and when she is able to tolerate foods to go very carefully and follow the advice she has been given. Discussed the very possible issue that this is gastro intent is to know in origin and discussed this suspicion for various etiologies. Her mother is beginning to think that if it is in Crohn's maybe it is something in the family of Crohn's. C diff testing is pending. Careful use of condoms recommended if she resumes sexual activity. To be following up with all of the aforementioned providers.. Coding Level of Care Code Est Pt Level 3 (89856) Diagnoses Pelvic pain R10.2 control counseling Z30.09
[2023-02-14 09:45] VITALS: BP 110/70; BMI 23.4
== END 2023-02-14 10:22 | disposition home or self-care (01) ==
LOC: HO.HWS 09:26
PROVIDERS: PCP Internal Medicine; Visit Provider Advanced Practice Midwife
DX: R10.2 Pelvic and perineal pain (principal); Z30.09 Encounter for other general counseling and advice on contraception
CPT/HCPCS: 99213

== ENCOUNTER → 2023-02-14 09:26 | Outpatient (BNVA) | payer OTHER, SELFPAY | PROVIDERS: PCP Internal Medicine; Visit Provider Advanced Practice Midwife | DX: Z30.09 Encounter for other general counseling and advice on contraception (principal); R10.2 Pelvic and perineal pain | CPT/HCPCS: 99212 ==

== ENCOUNTER 2023-02-16 14:38 | Outpatient (AMB) | payer OTHER, SELFPAY ==
[2023-02-16 14:49] VITALS: BP 110/64; PULSE 76; O2SAT 99; BMI 23.2
--- NOTE | 2023-02-16 14:49 | MHC.PC.OV ---
Vital Signs 02/16/23 14:49 Height 5 ft 3 in Weight 131 lb BMI 23.2 BP 110/64 Blood Pressure Location Lt brachial Position Sitting Pulse 76 Pulse Source Pulse Oximeter Pulse Oximetry (%) 99 Oxygen Delivery Method Room Air Intake Visit Reasons: [facility] [place]-02/11-pelvic inflamatory pain Intake Note: Patient here for ED follow up from 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 [place]-02/11-pelvic inflamatory pain HPI Details Patient is a 22-year-old female who presents today to follow-up after [facility] visit 02/11/2023 and 02/12/2023 due to abdominal pain. Patient of Dr. Duque. Per ED notes from 02/12: This is a 22-year-old female, with a past medical history of asthma, and chronic pelvic pain, presenting to the emergency department for continued pelvic pain. Patient was seen in the emergency department yesterday, after having pelvic pain for the last 5 days. She was seen at [facility] where she had a extensive testing including a CAT scan, ultrasound, vaginosis panel, gonorrhea and chlamydia testing without any findings. She was started on Flagyl which she has been taking up until Monday. She was seen in the emergency department yesterday and was evaluated by me, she had clinical findings suggestive of pelvic inflammatory disease, and I prescribed doxycycline and given her ceftriaxone. She was urged to follow-up with OBGYN for further management of her symptoms. 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 She states that overnight she developed worsening pelvic pain. Endorsing nausea and vomiting. Of note, patient has been dealing with pelvic pain for the last 4 years. She has gone to the emergency department 5 times within the last 3 years for pelvic pain, without any acute findings. Patient's symptoms improved after receiving Ativan, ibuprofen and Zofran. She is able to answer more questions. Patient has mild tenderness to palpation in the suprapubic region, otherwise abdomen is soft. I discussed with patient that at times pelvic pain can present in woman with trauma history. Patient denies any sort of sexual trauma history in the past or in her upbringing. I discussed at length that we have exhausted all medical diagnostics within this past week. She has had 3 emergency department visits for the same pain. She has no leukocytosis on examination, H&H is stable. Chemistry within normal limits. Urine does have leuk esterases however is not a clean-catch sample, will not treat for urinary tract infection at this time. I discussed in urgency importance of following up with her OBGYN as this needs to be further investigated and managed outpatient as we no longer have any services or additional tests to order on her. Patient also reports that she has had diarrhea for the last month and would like her stool tested. This is a 22-year-old female presenting to the emergency department for evaluation of pelvic pain. Patient has had chronic pelvic pain for the last 4 years, and has been seen in the emergency department multiple times for this same issue. Most recently was seen and evaluated by me yesterday. She had clinical findings suggestive of pelvic inflammatory disease, she has been taking Flagyl, however informs me today that she has been noncompliant with Flagyl and discontinued this on Monday. She received ceftriaxone yesterday, and was prescribed doxycycline which she was unable to fish bait picker at the pharmacy. She was also given Toradol tablets, which she also was not able to fish bait picker at the pharmacy yesterday. She is presenting today with continued pelvic pain. On arrival, patient tearful and anxious, moaning. I discussed this with my attending physician, Dr. Rankin. At this point we have exhausted all medical resources as she has already had a CT abdomen, multiple pelvic ultrasounds this week, negative swabs, negative urine. She has been not compliant with taking medications as prescribed, and has not been seen by OBGYN. It is unclear whether not this has a psychiatric component to it. Current condition needs to be followed by OBGYN outpatient. Your labs were reassuring today. Please take prescribed doxycycline which I sent over to your pharmacy yesterday. Please finish course of Flagyl which are prescribed to on Monday. Take prescribed Toradol which I gave you a prescription for yesterday as well. Your stool culture was unremarkable. We are still waiting on your C diff testing. I am also prescribing a medication to help treat for nausea. You need to follow-up with GI as well as OBGYN for further management of your symptoms. If any new or worsening symptoms occur, please return for re-evaluation. Today, patient reports suprapubic constant pain, she reports this pain on and off for the past 4 years, restarted back in September of 2022. She also reports nausea and vomiting for the past couple months. Reports watery diarrhea since September of 2022. Reports each time she has to urinate she has diarrhea. No blood in vomitus or stool. Reports that her stool is brown and sticky. Reports she had colonoscopy about 2 years ago which was normal at [facility]. She was seen by [facility] few days ago-recommendation to see GI. Patient will be seeing [facility] gynecology as well 02/2023. No fever or chills. Patient reports that she is compliant with doxycycline and Flagyl. Reports some pain in her right low back today. Reports nothing helps with this pain. Mother with Crohn's disease. Patient is following bland diet. [facility] Medical History Anxiety and depression Asthma Cough Cough due to LYNN inhibitor Low back pain Migraine with aura Seasonal allergies Surgical History No pertinent past surgical history Family History Paternal Grandmother Breast CA Mother Crohn disease Father Migraine Brother Bipolar 1 disorder Maternal Grandmother Heart disease Maternal Aunt Colon cancer Other Mental health disorder Social History Housing: Apartment Alcohol intake: never Patient Tobacco Use Status: Never used Tobacco e-Cigarette/Vaping Use: Never Used Second Hand Smoke Exposure: No Substance Use Type: Marijuana service: No Current occupational status: employed 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 Reji Yee, Jennifer Majano, Keanu Arce and colleagues, with an educational girma from [employer]. Review of Systems Const Denies body aches, Denies chills, Denies fever(s) and Denies headache(s) Eyes Denies change in vision ENT Denies dizziness, Denies otalgia, Denies headache(s), Denies nasal discharge, Denies sinus pain and Denies sore throat Card Denies chest pain, Denies edema, Denies lightheadedness and Denies dyspnea Resp Denies cough, Denies dyspnea and Denies wheezing GI Reports abdominal pain, Denies melena, Denies hematochezia, Denies constipation, Denies heartburn, Reports diarrhea, Reports nausea and Reports vomiting Details: White vaginal discharge Denies hematuria, Denies dysuria and Denies flank pain Musc Reports as per HPI and Denies myalgias Skin/Breast Denies rash Neuro Denies dizziness and Denies headache(s) Aller/Immun Denies wheezing Physical exam (Primary Care) Vital Signs: Last Vital Signs Pulse 76 02/16/23 14:49 BP 110/64 02/16/23 14:49 Pulse Ox 99 02/16/23 14:49 Oxygen Delivery Method Room Air 02/16/23 14:49 BMI result Body Mass Index 23.2 Tobacco/Smoking Status: Tobacco use Status Tobacco use date assessed 01/23/23 02/16/23 14:52 Patient Tobacco Use Status Never used Tobacco 02/16/23 14:52 e-Cigarette/Vaping Use Never Used 02/16/23 14:52 Thrive Assessment: Date of Thrive Assessment Date Thrive assessed 10/07/22 02/16/23 14:52 Const General: cooperative and no acute distress Orientation/consciousness: patient oriented x3 HENMT Head: Yes normocephalic and Yes atraumatic Face and sinus: Yes sinuses nontender Mouth: oropharynx normal and moist mucous membranes Throat: Yes posterior oropharynx normal Eyes General: appearance normal, both eyes and all related structures Neck Neck: Yes normal visual inspection, Yes full ROM and Yes no lymphadenopathy Resp Effort & Inspection: normal respiratory effort and able to speak in complete sentences Auscultation: clear to auscultation bilaterally, no crackles, no rales, no rhonchi and no wheezes Cardio Rate: regular rate Rhythm: regular rhythm Heart sounds: S1 normal heart sound present, S2 normal heart sound present and no murmurs GI Inspection: Yes normal to inspection Palpation (GI): Soft to palpation, not firm, Tenderness to palpation present (GI) suprapubicly; with no rebound tenderness, no guarding, not rigid and no hepatosplenomegaly Auscultation: normal bowel sounds General: No CVA tenderness Back/Spine/Pelvis Back: No CVA tenderness Thoracic/Lumbar Spine: No paraspinal muscle tenderness, No thoracic spinal tenderness and No lumbar spinal tenderness Skin General skin exam: no rashes or lesions noted Neuro General: patient oriented x3 Gait exam (Neuro): Normal gait present Extrem General: Yes full ROM and No edema Assessment and Plan Assessment & Plan (1) Nausea & vomiting: Code(s): R11.2 - Nausea with vomiting, unspecified Plan: Continue Zofran p.r.n. [place] diet (2) Diarrhea: Code(s): R19.7 - Diarrhea, unspecified Plan: Stool cultures negative, C diff negative Urgent referral to gastroenterology for an evaluation and treatment Mother questioning possible Crohn's disease (3) Pelvic pain: Comment: US ? Pelvic congestion syndrome/02/14/23-status post 3 ER visits in last week being treated for PID and BV. Has had diarrhea testing pending will be following up with [facility] and gastrointestinal. Code(s): R10.2 - Pelvic and perineal pain Plan: Continue to follow-up with [facility] gynecology as scheduled Patient reports that she is compliant with Flagyl and doxycycline Plan Keep appointment with PCP as scheduled or follow-up sooner as needed Signs and symptoms reviewed when to notify provider or go to the emergency department Patient agreed with the plan Orders: Referrals Gastroenterology Referral R11.2 - Nausea with vomiting, unspecified, R19.7 - Diarrhea, unspecified Medications: Changed From ondansetron 4 mg PO Q6-8H PRN 7 tabs 0RF nausea and vomiting R11.2 - Nausea with vomiting, unspecified To ondansetron 4 mg PO Q8H PRN 14 tabs 0RF nausea and vomiting R11.2 - Nausea with vomiting, unspecified Coding Level of Care Code Est Pt Level 3 (47619) Diagnoses Nausea & vomiting R11.2 Diarrhea R19.7 Pelvic pain R10.2
== END 2023-02-16 15:28 | disposition home or self-care (01) ==
PROVIDERS: PCP Internal Medicine; Visit Provider Nurse Practitioner Family
DX: R11.2 Nausea with vomiting, unspecified (principal); R19.7 Diarrhea, unspecified; R10.2 Pelvic and perineal pain
CPT/HCPCS: 99213

== ENCOUNTER 2023-02-28 10:30 | Outpatient (REF) | payer OTHER, SELFPAY ==
[2023-02-28 15:11] LABS: CT PCR NOT DETECTED (Not Detect.); NG PCR NOT DETECTED (Not Detect.)
[2023-03-01 08:49] LABS: BV Int Neg Control Negative (Negative); BV Int Pos Control Positive (Positive)
== END 2023-02-28 10:31 | disposition home or self-care (01) ==
LOC: HO.LNP 10:30
PROVIDERS: Visit Provider Obstetrics & Gynecology
DX: Z01.419 Encounter for gynecological examination (general) (routine) without abnormal findings (principal); R10.2 Pelvic and perineal pain; N91.2 Amenorrhea, unspecified
CPT/HCPCS: 0353U; 81003; 81025; 87480; 87510; 87660; 99212; 99395

== ENCOUNTER 2023-02-28 10:30 | Outpatient (AMB) | payer OTHER, SELFPAY ==
[2023-02-28 10:32] VITALS: BP 92/60; BMI 23.6
--- NOTE | 2023-02-28 10:32 | MHC.OFFVIS ---
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 The patient is complaining of pelvic pain started few weeks ago. It's intermittent in nature lasting few seconds and occurs 3x/day. it is associated with vaginal discharge with no odor or itching, diarrhea, urinary dysuria and frequency no incontinence, no n/v, no feverishness. The pain is not cyclic. The patient has seen her PCP we further to GI, appointment scheduled within a week. Pelvic ultrasound done on 02/11/2023 showed the following: IMPRESSION: Unremarkable uterus and ovaries. ? Mild pelvic vascular congestion In addition, the patient has had amenorrhea for the last 3 years Last Pap smear was in 2019 was negative [facility] Medical History Anxiety and depression Asthma Cough Cough due to LYNN inhibitor Low back pain Migraine with aura Seasonal allergies Surgical History No pertinent past surgical history Family History Paternal Grandmother Breast CA Mother Crohn disease Father Migraine Brother Bipolar 1 disorder Maternal Grandmother Heart disease Maternal Aunt Colon cancer Other Mental health disorder Social History Housing: Apartment Alcohol intake: never Patient Tobacco Use Status: Never used Tobacco e-Cigarette/Vaping Use: Never Used Second Hand Smoke Exposure: No Substance Use Type: Marijuana service: No Current occupational status: employed 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 Current occupational exposures/hazards: No Sexual orientation: Straight/Heterosexual Gender identity: Female Cognitive needs: No Hearing needs: No Vision needs: No Female Reproductive History Menstrual Age of Menarche: 12 Duration of menses: 6-7 days control method: none Total pregnancies: 1 Full term: 1 Number of Living Children: 1 Date of last pap smear: 01/07/21 (negative) Review of Systems Const All systems reviewed & are unremarkable except as noted in HPI and below Card Reports as per HPI Resp Reports as per HPI GI Reports as per HPI and Reports no additional complaints Reports as per HPI Physical Exam Vital Signs: Last Vital Signs BP 92/60 02/28/23 10:32 BMI result Body Mass Index 23.6 Const General: cooperative, healthy appearing and comfortable Chest Chest palpation & inspection: normal inspection of the chest and normal palpation of entire chest wall Breast/axilla inspection: normal inspection of the breasts and normal inspection of the axillae Breast/axilla palpation: normal palpation of the breasts, normal palpation of the axillae and no axillary lymphadenopathy Resp Effort & Inspection: normal respiratory effort Auscultation: clear to auscultation bilaterally Percussion: percussion normal Cardio Palpation: normal PMI Rate: regular rate Rhythm: regular rhythm Heart sounds: no murmurs and no rubs Peripheral pulses: Peripheral pulses 2+ throughout GI Inspection: Yes normal to inspection Palpation (GI): Soft to palpation, nontender, no guarding, not rigid and No hepatosplenomegaly present Percussion: Yes normal to percussion Auscultation: normal bowel sounds Rectal Exam - Female: deferred General: Yes bladder normal to palpation External Female Exam: No lesion Speculum Exam - Vagina: normal appearance of the vagina, normal palpation, normal vaginal discharge and not erythematous Speculum Exam - Cervix: normal appearance of the cervix and normal palpation Bimanual exam- vagina & uterus: normal bimanual exam, normal palpation, uterine size normal, bladder normal to palpation, consistency normal and normal palpation Bimanual Exam- Adnexa, other: normal adnexae, no masses and no tenderness Assessment & Plan Assessment & Plan (1) Well woman exam: Code(s): Z01.419 - Encounter for gynecological examination (general) (routine) without abnormal findings Plan: Pap smear not indicated this. Counseled the patient about the recommended dietary allowance of 1000 mg of Calcium & 600 IU of vitamin D. The patient was instructed to perform monthly self-breast exams , to call for any changes in menstrual patterns and to schedule an annual exam in a year; all questions answered and the patient verbalized understanding. (2) Amenorrhea: Code(s): N91.2 - Amenorrhea, unspecified Plan: Discussed with the patient the possible causes of amenorrhea including but not limited to anovulation, thyroid and prolactin disorders, , end organ problems (uterine synechiae), medication side effects and others. The workup includes to start with UPT (done in the office and was negative) this will be followed by a progesterone withdrawal test x 5 days if + bleeding this will be followed by TSH, PRL if negative then the diagnosis is anovulation. if no bleeding occurs will treat with Premarin x 21 days followed by Prometrium if no bleeding occurs will rule out Premature ovarian failure with FSH/LH. Instructions given the patient to schedule a follow-up appointment in 2 weeks (3) Pelvic pain: Code(s): R10.2 - Pelvic and perineal pain Plan: Urine dip and test done in the office were both negative. GC and chlamydia taken and pelvic ultrasound done recently. Discussed with the patient the differential diagnosis of pelvic pain including but not limited to adnexal, uterine masses which has been ruled out by normal ultrasound, pelvic congestion syndrome identified on ultrasound, pelvic infections (PID), GI the (Irritable bowel syndrome, diverticulitis, others), musculoskeletal, myofascial pain abdominal wall , adhesions, endometriosis, psychological and others causes. Will check results and treat accordingly. Instructions given the patient to schedule a 2 week follow-up appointment. All questions answered, the patient verbalized understanding. Instructed the patient to schedule follow-up appointment in 2 weeks Medications: New progesterone micronized (Prometrium) Take the pill 1 tablet a day for 5 days 200 mg PO BEDTIME 5 caps 0RF 5 days Coding Level of Care Code Est Pt Level 3 (03387) Est Pt Prev Care 18-39y(48262) Diagnoses Well woman exam Z01.419 Amenorrhea N91.2 Pelvic pain R10.2
== END 2023-02-28 11:09 | disposition home or self-care (01) ==
PROVIDERS: Visit Provider Obstetrics & Gynecology
DX: Z01.419 Encounter for gynecological examination (general) (routine) without abnormal findings (principal); N91.2 Amenorrhea, unspecified; R10.2 Pelvic and perineal pain; Z32.02 Encounter for pregnancy test, result negative
CPT/HCPCS: 99213; 99395

== ENCOUNTER 2023-03-03 06:57 | Emergency (ER) | payer OTHER, SELFPAY ==
--- NOTE | ~2023-03-03 | US_ITS ---
EXAMINATION: US PELVIS CLINICAL INFORMATION: Pelvic pain. COMPARISON: None available. TECHNIQUE: Ultrasound of the pelvis is performed using both transabdominal and transvaginal transducers along with Doppler. Transvaginal imaging is performed due to inadequate visualization transabdominally. FINDINGS: Uterus: The uterus is retroverted, anteflexed and measures 5.2 x 2.8 x 4.9 cm. No focal lesion seen. However there are prominent vessels in the myometrium. The double wall endometrial thickness is 0.5). The uterus is smooth in contour and has normal myometrial echogenicity. No visible fibroid. Adnexa: Both ovaries are visualized. There is normal color flow and Doppler imaging to both ovaries. There is no ovarian torsion. There is no pelvic ascites or fluid collection. There are prominent vessels in bilateral adnexa likely pelvic venous congestion. Right ovary measures 3.9 x 1.3 x 1.6 cm and volume 4.3 mL. No focal lesion seen. Previously right ovary measured 2.8 x 1.9 x 1.6 cm. Left ovary measures 2.3 x 1.3 1.4 cm and volume 2.2 mL. No focal lesion seen. Previously it measured 3.1 x 2.6 x 1.7 cm. US/US pelvic ovarian doppler IMPRESSION: 1. Unremarkable uterus and ovaries. 2. There are prominent vessels in bilateral adnexa likely pelvic venous congestion. 3. There is no free fluid in the cul-de-sac.
--- NOTE | ~2023-03-03 | CT_ITS ---
EXAMINATION: CT ABDOMEN AND PELVIS WITHOUT CONTRAST CLINICAL INFORMATION: Acute lower abdominal pain, nausea and vomiting. COMPARISON: CT abdomen and pelvis 09/29/2022. TECHNIQUE: Multidetector volumetric imaging was performed from the superior aspect of the liver through the pubic symphysis. Sagittal and coronal reformatted images were obtained on the technologist's workstation. This CT examination was performed using dose optimization techniques as appropriate, variously including the following: *Automated exposure control *Adjustment of mA and/or kV according to patient size (this includes techniques or standardized protocols for targeted exams where dose is matched to indication/reason for exam; i.e. extremities or head) *Use of iterative reconstruction technique DLP: 348 mGy-cm FINDINGS: LUNG BASES: The visualized lung bases are unremarkable. LIVER, GALLBLADDER, AND BILIARY TREE: The liver is normal in size, shape, and attenuation. No focal hepatic lesion or biliary ductal dilatation is present. The gallbladder is unremarkable with no evidence of radiopaque gallstones, gallbladder wall thickening, or obvious pericholecystic inflammatory changes. PANCREAS: Unremarkable. SPLEEN: Unremarkable. ADRENAL GLANDS: Unremarkable. KIDNEYS AND URETERS: The kidneys are normal in size, shape, and attenuation. No hydronephrosis, hydroureter, or calculi seen. No perinephric stranding. BLADDER: Unremarkable. GASTROINTESTINAL TRACT: There is scattered stool and gas seen throughout the colon without distention. The small bowel loops are normal caliber. The stomach is nondistended. No free air or free fluid is seen. ABDOMINAL WALL: No significant hernia is appreciated. LYMPH NODES: Normal. VASCULAR: Unremarkable. PELVIC VISCERA: The uterus is retroverted. No adnexal mass or free fluid seen. Prominent adnexal vessels seen on the previous CT abdomen pelvis exam are not optimally visualized due to lack of IV contrast OSSEOUS STRUCTURES: No aggressive lytic or sclerotic process seen. CT/CT abdomen pelvis wo IV con IMPRESSION: No acute intra-abdominal process seen. Retroverted uterus could represent as pain. No adnexal mass seen. Fleischner guidelines were followed.
--- NOTE | ~2023-03-03 | US_ITS ---
EXAMINATION: US ABDOMEN LIMITED CLINICAL INFORMATION: Right upper quadrant pain.. COMPARISON: None available. TECHNIQUE: Real-time imaging of the right upper quadrant abdominal viscera. FINDINGS: PANCREAS: Normal. LIVER: The liver is normal in size. The liver contour is normal. Parenchymal echogenicity is increased. There is a hyperechoic lesion left hepatic lobe measuring 1.4 x 0.7 x 1.7 cm likely small hemangioma or focal fatty infiltration. Rest the liver is homogeneous in echotexture. There is no intrahepatic biliary duct dilatation seen. GALLBLADDER: Normal. The gallbladder is physiologically distended without evidence of stones, sludge, polyps, wall thickening or pericholecystic fluid. COMMON BILE DUCT: Normal in caliber measuring 0.2 cm in diameter. RIGHT KIDNEY: Normal. No hydronephrosis. No renal calculi or focal parenchymal lesions. The kidney measures 10.6 cm in maximum dimension. FREE FLUID: None. US/US abdomen limited IMPRESSION: 1. Left hepatic lobe hemangioma versus focal fatty infiltration. 2. Visualized pancreas, gallbladder, CBD and right kidney is unremarkable.
--- NOTE | ~2023-03-03 | US_ITS ---
EXAMINATION: US PELVIS CLINICAL INFORMATION: Pelvic pain. COMPARISON: None available. TECHNIQUE: Ultrasound of the pelvis is performed using both transabdominal and transvaginal transducers along with Doppler. Transvaginal imaging is performed due to inadequate visualization transabdominally. FINDINGS: Uterus: The uterus is retroverted, anteflexed and measures 5.2 x 2.8 x 4.9 cm. No focal lesion seen. However there are prominent vessels in the myometrium. The double wall endometrial thickness is 0.5). The uterus is smooth in contour and has normal myometrial echogenicity. No visible fibroid. Adnexa: Both ovaries are visualized. There is normal color flow and Doppler imaging to both ovaries. There is no ovarian torsion. There is no pelvic ascites or fluid collection. There are prominent vessels in bilateral adnexa likely pelvic venous congestion. Right ovary measures 3.9 x 1.3 x 1.6 cm and volume 4.3 mL. No focal lesion seen. Previously right ovary measured 2.8 x 1.9 x 1.6 cm. Left ovary measures 2.3 x 1.3 1.4 cm and volume 2.2 mL. No focal lesion seen. Previously it measured 3.1 x 2.6 x 1.7 cm. US/US pelvic and transvaginal IMPRESSION: 1. Unremarkable uterus and ovaries. 2. There are prominent vessels in bilateral adnexa likely pelvic venous congestion. 3. There is no free fluid in the cul-de-sac.
[2023-03-03 07:17] VITALS: BP 124/56; PULSE 87; RESP 20; TEMP 37.3; O2SAT 98; BMI 23.7
--- NOTE | 2023-03-03 07:29 | ED_ITS ---
HPI - General Adult General Chief complaint: Urogenital-Female Stated complaint: Pelvic pain Time Seen by Provider: 03/03/23 07:09 Source: patient and family Mode of arrival: ambulatory Limitations: no limitations History of Present Illness HPI narrative: 22-year-old female, with a past medical history of asthma, and chronic pelvic pain, presenting to the emergency department for continued pelvic pain. Patient reports she has been seen multiple times within the past few weeks department. She has also seen her OBGYN recently. Patient reports that she has been having acute pelvic pain for the past 2 days, pain started 2 days ago suddenly, localized to mid pelvic region, patient has had multiple tests done including gonorrhea, chlamydia all of which have been negative. She has been taking Flagyl recently for BV. Patient has been told she has pelvic inflammatory disease. Pelvic pain associated with nausea and vomiting. Denies chances of no period in 2 years. Denies cp, sob, headache, vision changes, dizziness, weakness, Related Data Home Medications Medication Instructions Recorded Confirmed ketorolac 10 mg tablet 10 mg PO Q8H 02/16/23 02/16/23 Previous Rx's Medication Instructions Recorded ondansetron 4 mg disintegrating 4 mg PO Q6-8H PRN nausea and 02/12/23 tablet vomiting #10 tabs progesterone micronized 200 mg 200 mg PO BEDTIME 5 days #5 caps 02/28/23 capsule (Prometrium) doxycycline hyclate 100 mg capsule 100 mg PO BID 14 days #28 caps 03/03/23 ketorolac 10 mg tablet 10 mg PO TID PRN pain 5 days #15 03/03/23 tabs ondansetron 4 mg disintegrating 4 mg PO Q6H PRN nausea and 03/03/23 tablet vomiting #14 tabs Allergies Allergy/AdvReac Type Severity Reaction Status Date / Time Seasonal Allergies Allergy Intermediate Itchy Eyes Verified 02/28/23 10:35 Review of Systems 2 Review of Systems: Constitutional : No Weight loss, No Fever, No Chills, No Fatigue, No Malaise ENT/Mouth : No sore throat, No Rhinorrhea Eyes: No Eye Pain, No Swelling, No Redness Cardiovascular : No Chest Pain, No SOB, No Dyspnea on Exertion, No Orthopnea, No Edema, No Palpitations Respiratory : No Cough, No Sputum, No Wheezing Gastrointestinal : No Nausea, No Vomiting, No Diarrhea, No Constipation, + abdominal Pain, No Hematochezia, No Melena Genitourinary : No Dysuria, No Urinary Frequency, No Hematuria, + pelvic pain Musculoskeletal : No joint pain, No Myalgias, No Joint Swelling Skin : No Skin Lesions, No rash Neuro : No Weakness, No Numbness, No Dizziness, No Headache Psych : No Anxiety/Panic, No Depression All other systems reviewed and are negative Yes all other systems are reviewed and are negative [facility] Past Medical History Attestation statement: The following information was validated with the patient. Source: old records reviewed and nursing notes reviewed Medical History Anxiety and depression Asthma Cough Cough due to LYNN inhibitor Low back pain Migraine with aura Seasonal allergies Surgical History No pertinent past surgical history Family History Family History Paternal Grandmother Breast CA Mother Crohn disease Father Migraine Brother Bipolar 1 disorder Maternal Grandmother Heart disease Maternal Aunt Colon cancer Other Mental health disorder Social History Social History Housing: Apartment Alcohol intake: never Patient Tobacco Use Status: Never used Tobacco Smoked in Last 30 Days: No e-Cigarette/Vaping Use: Never Used Second Hand Smoke Exposure: No Use of substances other than those prescribed or required for medical reasons: No Substance Use Type: Marijuana Advance Directives: No Advance Directives Information Provided: Yes Patient : No service: No Current occupational status: employed 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 Chemistry unremarkable. Beta hCG negative. UA without infection. Patient reports that she has been having some white foul-smelling discharge is currently on Flagyl, has had multiple STD swabs in the past, does not want more swabs at this time or pelvic exam. She tells me if I do a pelvic she wants me to go in there in scrape things out, I explained to her that is not the purpose of the pelvic exam. She then states that she does not want a pelvic exam. She states she is feeling much better. CT abdomen pelvis with no acute intra-abdominal process, retroverted uterus could represent this pain, no adnexal mass seen. No mention of the apendix however no ttp exiquistly to RLQ, no rebound tenderness, negative rosving, and mcburneys point unlikely appendicitis. Also patient seen for this multiple times in the past. Pelvic ultrasound w/ unremarkable uterus and ovaries no torsion, venous congestion noted, no free fluid in the cul de sac. Patient feeling better. Time: 12:26 Reevaluation #2: Patient was evaluated by OBGYN Dr. Eid who notes cervical motion tenderness on exam he would like the patient treated for PID and to follow-up outpatient. He states no indication for inpatient admission. At this time patient to be discharged home with doxycycline, and she will be given ceftriaxone here. Patient has been receiving treatment for BV and is on metronidazole. Time: 13:42 Medications Administered Discontinued Medications Generic Name Dose Route Start Last Admin Trade Name Freq PRN Reason Stop Dose Admin Sodium Chloride 1,000 mls @ 999 mls/hr 03/03/23 07:30 03/03/23 08:45 Ns IV 03/03/23 08:30 Infused .Q1H1M SHARON Infusion Sodium Chloride 1,000 mls @ 999 mls/hr 03/03/23 09:15 03/03/23 10:36 Ns IV 03/03/23 10:15 Infused .Q1H1M SHARON Infusion Ketorolac Tromethamine 15 mg 03/03/23 12:21 03/03/23 12:35 Ketorolac Tromethamine 15 Mg/Ml Vial IVPUSH 03/03/23 12:22 15 mg ONCE ONE Administration Lorazepam 1 mg 03/03/23 07:44 03/03/23 08:52 Lorazepam 2 Mg/Ml Vial IVPUSH 03/03/23 07:45 1 mg ONCE ONE Administration Morphine Sulfate 4 mg 03/03/23 07:30 03/03/23 07:39 Morphine Sulfate 4 Mg/Ml Cartridge IVPUSH 03/03/23 07:31 4 mg ONCE ONE Administration Protocol Ondansetron HCl 4 mg 03/03/23 07:36 03/03/23 07:39 Ondansetron Hcl 4 Mg/2 Ml Vial IVPUSH 03/03/23 07:37 4 mg ONCE ONE Administration Medical Decision Making Medical Decision Making [facility] Narrative: 0715 22-year-old female presents with severe acute on chronic pelvic pain worsening. Was recently seen by OBGYN According to chart review patient was seen by a Dr. Eid on 02/28/2023 and diagnossed w/ amenorrhea. Patient had testing for yeast, chlamydia, gonorheam BV on 02/28/23 which shows all negative reuslts. PE w/ lower abdominal discomfort doesnt want a repeat pelvic at this time. No other acute findigns Concerns for PID vs Wong- Archie- Fer vs ectopic vs torsion vs nephrolithiasis. Unlikely appendicitis, cholecystitis, pancreatitis, cholangitis, choledocolithiasis Plan- labs, imaging, urine Differential Diagnosis Differential Diagnoses: The differential diagnosis associated with the presentation includes Concerns for PID vs Wong- Archie- Fer vs ectopic vs torsion. Unlikely appendicitis, cholecystitis, pancreatitis, cholangitis, choledocolithiasis Admission/Observation Consideration of admission/observation: Escalation of care including admission/observation considered unlikely Lab Data [facility] Lab Attestation statement: I reviewed the patient's lab results. 03/03/23 08:44 03/03/23 08:44 Labs: Lab Results 03/03/23 03/03/23 Range/Units 08:44 09:45 WBC 8.0 (4.8-10.8) X10*3/uL RBC 5.12 (4.20-5.50) X10*6/uL Hgb 14.2 (12.0-16.0) g/dl Hct 39.9 (37.0-47.0) % MCV 77.9 L (80.0-98.0) fL MCH 27.7 (27.0-33.0) pg MCHC 35.6 H (31.0-35.0) g/dl RDW 13.0 (11.0-16.0) % Plt Count 246 (160-400) X10*3/uL MPV 10.2 (9.4-12.3) fL Immature Gran % (Auto) 0.3 (0.0-0.4) % Neut % (Auto) 69.1 (45-73) % Lymph % (Auto) 23.6 (20-40) % [place] % (Auto) 5.9 (2-11) % Eos % (Auto) 0.8 (0-4) % Baso % (Auto) 0.3 (0-2) % Lymph # (Auto) 1.9 (1.2-4.9) X10*3/uL [place] # (Auto) 0.5 (0.1-1.2) X10*3/uL Eos # (Auto) 0.1 (0.0-0.4) X10*3/uL Baso # (Auto) 0.0 (0.0-0.2) X10*3/uL Abs Immat Gran (auto) 0.02 (0.00-0.03) X10*3/uL Absolute Neuts (auto) 5.5 (2.0-8.3) x10*3/uL Absolute Nucleated RBC 0.000 (0.0-0.012) X10*3/uL Nucleated RBC % (auto) 0.0 (0.0-0.2) /100WBC Sodium 140 (135-145) mmol/L Potassium 3.9 (3.3-5.1) mmol/L Chloride 108 (96-108) mmol/L Carbon Dioxide 22 (22-29) mmol/L Anion Gap 14 (12-20) BUN 9 (9-16) mg/dL Creatinine 0.73 (0.5-1.4) mg/dL Estim Creat Clear Calc 99.1 Estimated GFR > 60 Random Glucose 93 (60-115) mg/dL Calcium 9.5 D (8.4-10.2) mg/dL Magnesium 1.9 (1.6-2.6) mg/dL Total Bilirubin 0.9 (0.0-1.0) mg/dL AST 24 (5-31) U/L ALT 29 (0-31) U/L Alkaline Phosphatase 74 (39-117) U/L Total Protein 7.5 (6.5-8.0) g/dL Albumin 4.5 (3.5-5.0) g/dL Beta HCG, Quant < 2 mIU/mL Urine Color Yellow Urine Appearance Clear Urine pH 7.5 (5.0-9.0) Ur Specific [place] 1.015 (1.005-1.025) Urine Protein Negative (Neg-Trace) mg/dL Urine Glucose (UA) Negative (Negative) mg/dL Urine Ketones >=160 (Negative) mg/dL Urine Blood Negative (Negative) Urine Nitrite Negative (Negative) Ur Leukocyte Esterase Negative (Negative) Independent Interpretation I performed an independent interpretation of an: Ultrasound and CT Scan Radiology Impression Discussion of test interpretation with radiology: I have reviewed the radiologist's reading. Core Measures AMI core measures followed: Yes Measure exclusions: not indicated Critical Care Time Critical Care Time Critical Care Time: Yes Total Critical Care Time: 45 Attestation: I attest to this time spent taking care of the patient, obtaining history, physical, reviewing labs, imaging, speaking to my attending, speaking to specialist. Discharge Plan Discharge Clinical Impression: Pelvic pain, Nausea & vomiting, Acute pelvic inflammatory disease Patient Disposition: Home, Self-Care Instructions: Pelvic Pain in Women (ED), Pelvic Pain (ED) Additional Instructions: Take your medications as prescribed. If you were prescribed antibiotics today, it is important that you take your medication to their entirety, do not skip any doses, do not finish them early. Follow-up with your primary care provider this week. Follow up with OBGYN Return to the emergency department with new or worsening symptoms. Such as fevers, chills, chest pain, shortness of breath, nausea, vomiting, dizziness, headache, vision changes, lethargy In case of emergency call 911 Toradol has been sent to your pharmacy, you tolerated this well in the department. Please take this as prescribed do not take this with ibuprofen, or other NSAIDs, do not mix this with alcohol. Side effects of this medication including increased risk for bleeding and possible kidney injury. CT/CT abdomen pelvis wo IV con IMPRESSION: No acute intra-abdominal process seen. Retroverted uterus could represent as pain. No adnexal mass seen. Fleischner guidelines were followed. US/US pelvic and transvaginal IMPRESSION: 1. Unremarkable uterus and ovaries. 2. There are prominent vessels in bilateral adnexa likely pelvic venous congestion. 3. There is no free fluid in the cul-de-sac. Prescriptions: New ketorolac 10 mg tablet 10 mg PO TID PRN (Reason: pain) 5 Days Qty: 15 0RF ondansetron 4 mg tablet,disintegrating 4 mg PO Q6H PRN (Reason: nausea and vomiting) Qty: 14 0RF doxycycline hyclate 100 mg capsule 100 mg PO BID 14 Days Qty: 28 0RF No Action ondansetron 4 mg tablet,disintegrating 4 mg PO Q6-8H PRN (Reason: nausea and vomiting) Qty: 10 0RF ketorolac 10 mg tablet 10 mg PO Q8H progesterone micronized [Prometrium] 200 mg capsule 200 mg PO BEDTIME 5 Days Qty: 5 0RF Rx Instructions: Take the pill 1 tablet a day for 5 days Referrals: Neel Duque MD [Primary Care Provider] - 2 days Stand Alone Forms: Work/School Release
[2023-03-03] MEDS: Morphine Sulfate 4 MG/ML CARTRIDGE IVPUSH (07:39)
[2023-03-03] MEDS: ondansetron HCL 4 MG/2 ML VIAL IVPUSH (07:39)
[2023-03-03] MEDS: 0.9 % Sodium Chloride 1,000 ML 999 ML IV ×2 (07:43→09:28)
[2023-03-03 08:50] LABS: MANUAL DIFF FLAG NO
[2023-03-03 08:52] LABS: Basophils Percent Auto 0.3 % (0-2); Eosinophils Absolute Auto 0.1 X10*3/uL (0.0-0.4); Eosinophils Percent Auto 0.8 % (0-4); Hematocrit 39.9 % (37.0-47.0); Hemoglobin 14.2 g/dl (12.0-16.0); Imm Gran Abs Auto 0.02 X10*3/uL (0.00-0.03); Imm Gran Pct Auto 0.3 % (0.0-0.4); Lymphocytes Absolute Auto 1.9 X10*3/uL (1.2-4.9); Lymphocytes Percent Auto 23.6 % (20-40); Mean Corpuscular HGB Conc 35.6 g/dl (31.0-35.0); Mean Corpuscular Hemoglobin 27.7 pg (27.0-33.0); Mean Corpuscular Volume 77.9 fL (80.0-98.0); Mean Platelet Volume 10.2 fL (9.4-12.3); Monocytes Absolute Auto 0.5 X10*3/uL (0.1-1.2); Monocytes Percent Auto 5.9 % (2-11); Neutrophils Absolute Auto 5.5 x10*3/uL (2.0-8.3); Neutrophils Percent Auto 69.1 % (45-73); Platelet Count 246 X10*3/uL (160-400); Red Blood Count 5.12 X10*6/uL (4.20-5.50)
[2023-03-03] MEDS: LORazepam 2 MG/ML VIAL 1 MG IVPUSH (08:52)
--- NOTE | 2023-03-03 09:03 | PC.NURSE ---
pt medicated per AUG with 1mg ativan. pt now very emotional and crying. reports she never felt this before after medication. provider aware
[2023-03-03 09:14] LABS: Alanine Aminotransferase 29 U/L (0-31); Albumin Level 4.5 g/dL (3.5-5.0); Alkaline Phosphatase 74 U/L (39-117); Anion Gap 14 (12-20); Aspartate Amino Transferase 24 U/L (5-31); Bilirubin Total 0.9 mg/dL (0.0-1.0); Blood Urea Nitrogen 9 mg/dL (9-16); Calcium 9.5 mg/dL (8.4-10.2); Carbon Dioxide 22 mmol/L (22-29); Chloride 108 mmol/L (96-108); Creatinine Clr Calc Pharmacy 99.1; Estimated Glomerular Filt Rate > 60; Glucose Random 93 mg/dL (60-115); Magnesium 1.9 mg/dL (1.6-2.6); Potassium 3.9 mmol/L (3.3-5.1); Sodium 140 mmol/L (135-145); Total Protein 7.5 g/dL (6.5-8.0)
[2023-03-03 09:17] LABS: HCG Quantitative < 2 mIU/mL
[2023-03-03 09:59] LABS: Appearance Urine Clear; Color Urine Yellow; Glucose Urine UA Negative (Negative); Leukocyte Esterase Urine Negative (Negative); Nitrite Urine Negative (Negative); PH 7.5 (5.0-9.0); Specific Gravity - Urine 1.015 (1.005-1.025); Urine Blood Negative (Negative); Urine Ketones >=160 mg/dL (Negative); Urine Protein Negative (Neg-Trace)
[2023-03-03 10:36] VITALS: BP 94/51; PULSE 71; RESP 18; O2SAT 99
[2023-03-03] MEDS: Ketorolac Tromethamine 15 MG/ML VIAL IVPUSH (12:35)
--- NOTE | 2023-03-03 13:11 | PC.NURSE ---
pt resting comfortably. pain 7/10 after toradol was administered per AUG. pt eating and drinking at this time. will assist with walking around unit as requested by provider.
[2023-03-03 13:22] VITALS: BP 107/64; PULSE 78; RESP 18; O2SAT 99
--- NOTE | 2023-03-03 13:36 | PC.NURSE ---
pt tried to eat, reports she is unable to do so comfortably. PO fluids were easier to intake per pt.
[2023-03-03] MEDS: cefTRIAXone sodium 500 MG, Lidocaine HCl 1 % MPF 1 ML IM (14:04)
[2023-03-03] MEDS: Doxycycline Monohydrate 100 MG CAPSULE PO (14:09)
--- NOTE | 2023-03-03 14:09 | PM.GYNCN ---
MACHINING MANAGER - CN: HPI Data of Consult Consult date: 03/03/23 Primary Care Provider: Neel Duque MD Consult Narrative Narrative: I was consulted on Petr Connolly who is a 22 year old female presented to the emergency room with pelvic pain for the past 2 days in the mid pelvic region, it is associated with vaginal discharge, nausea and vomiting. No fevers rashes or chills no abnormal uterine bleeding. HCG done in the emergency was less than 2 cc:: CC: OB PMFSH Past Medical History Medical History Anxiety and depression Cough Cough due to LYNN inhibitor Seasonal allergies Low back pain Migraine with aura Asthma Family History Family History Paternal Grandmother Breast CA Mother Crohn disease Father Migraine Brother Bipolar 1 disorder Maternal Grandmother Heart disease Maternal Aunt Colon cancer Other Mental health disorder Surgical History Surgical History No pertinent past surgical history Social History Social History Housing: Apartment Alcohol intake: never Patient Tobacco Use Status: Never used Tobacco Smoked in Last 30 Days: No e-Cigarette/Vaping Use: Never Used Second Hand Smoke Exposure: No Use of substances other than those prescribed or required for medical reasons: No Substance Use Type: Marijuana Advance Directives: No Advance Directives Information Provided: Yes Patient : No service: No Current occupational status: employed 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 Current occupational exposures/hazards: No Sexual orientation: Straight/Heterosexual Gender identity: Female Cognitive needs: No Hearing needs: No Vision needs: No Meds Allergies Allergy/AdvReac Type Severity Reaction Status Date / Time Seasonal Allergies Allergy Intermediate Itchy Eyes Verified 02/28/23 10:35 Home Medications Medication Instructions Recorded Confirmed Last Taken Type ketorolac 10 mg tablet 10 mg PO Q8H 02/16/23 02/16/23 Unknown History MACHINING MANAGER Physical Exam Vitals Vital signs: Temp Pulse Resp BP Pulse Ox O2 Del Method 99.2 F 78 18 107/64 99 Room Air 03/03/23 07:17 03/03/23 13:22 03/03/23 13:22 03/03/23 13:22 03/03/23 13:22 03/03/23 13:22 BMI result Body Mass Index 23.7 Abdomen Auscultation/Inspection/Palpation: Normal bowel sounds, Soft and Tenderness (Suprapubic) Female Genitalia (Pelvic) Bladder/Urethra: Normal meatus Vagina: Nontender Cervix: Cervical motion tenderness Uterus: Normal size and Tender Adnexa/Parametria: Adnexal Tenderness: Bilateral, Adnexal Mass: Bilateral and Parametrial Tenderness: Bilateral MACHINING MANAGER - Results Labs 03/03/23 08:44 03/03/23 08:44 Labs: Short CBC 03/03/23 Range/Units 08:44 WBC 8.0 (4.8-10.8) X10*3/uL Hgb 14.2 (12.0-16.0) g/dl Hct 39.9 (37.0-47.0) % Plt Count 246 (160-400) X10*3/uL BMP 03/03/23 08:44 Sodium 140 Potassium 3.9 Chloride 108 Carbon Dioxide 22 BUN 9 Creatinine 0.73 Calcium 9.5 D Liver Function 03/03/23 Range/Units 08:44 Total Bilirubin 0.9 (0.0-1.0) mg/dL AST 24 (5-31) U/L ALT 29 (0-31) U/L Alkaline Phosphatase 74 (39-117) U/L Albumin 4.5 (3.5-5.0) g/dL Urine 03/03/23 Range/Units 09:45 Urine Color Yellow Urine Appearance Clear Urine pH 7.5 (5.0-9.0) Ur Specific [place] 1.015 (1.005-1.025) Urine Protein Negative (Neg-Trace) mg/dL Urine Glucose (UA) Negative (Negative) mg/dL Imaging CT scan - pelvis: Radiologist's impression: ITS Impressions Abdomen Ultrasound 03/03/23 07:55 IMPRESSION: 1. Left hepatic lobe hemangioma versus focal fatty infiltration. 2. Visualized pancreas, gallbladder, CBD and right kidney is unremarkable. Doppler Study Ultrasound 03/03/23 08:15 IMPRESSION: 1. Unremarkable uterus and ovaries. 2. There are prominent vessels in bilateral adnexa likely pelvic venous congestion. 3. There is no free fluid in the cul-de-sac. Pelvic/Transvag US 03/03/23 08:15 IMPRESSION: 1. Unremarkable uterus and ovaries. 2. There are prominent vessels in bilateral adnexa likely pelvic venous congestion. 3. There is no free fluid in the cul-de-sac. Abdomen/Pelvis CT 03/03/23 10:16 IMPRESSION: No acute intra-abdominal process seen. Retroverted uterus could represent as pain. No adnexal mass seen. Fleischner guidelines were followed. Assessment and Plan (1) Acute pelvic inflammatory disease: Status: Acute Urine test done and was negative. GC and chlamydia , Trichomonas with BV panel taken. Last STD screen Anita was done in 01/15 were were negative, will defer repeat STD screen were few weeks. Recommend to treat per CDC recommended oral regimen for PID with ceftriaxone 500 mg IM x1, doxycycline 100 mg p.o. b.i.d. with Flagyl 500 mg p.o. b.i.d. for 14 days. Instructions given the patient to call or come back to the emergency room in case of fever equal or above 100.4, persistent or worsening of her abdominal/pelvic pain, nausea or vomiting and to schedule a 1 week follow-up appointment. (2) Pelvic congestion syndrome: Status: Acute Discussed with the patient the finding on ultrasound and CT scan showing possible pelvic congestion syndrome. Discussed with the patient treatment options including: Medical treatment with limited data available: Goserilin , medrproxy progesterone acetate , Nexplanon are both associated with the return of pain after cessation of treatment . Other Invasive treatment of available but since the patient is still interested in conception are a contraindication. All questions answered, the patient verbalized understanding. Time Spent With Patient Time: Total time managing care of this patient today ____ minutes.
[2023-03-03 15:48] LABS: CT PCR NOT DETECTED (Not Detect.); NG PCR NOT DETECTED (Not Detect.)
[2023-03-04 12:34] LABS: BV Int Neg Control Negative (Negative); BV Int Pos Control Positive (Positive)
== END 2023-03-03 14:19 | disposition home or self-care (01) ==
PROVIDERS: Obstetrics & Gynecology; Physician Assistant; Emergency Provider Emergency Medicine; PCP Internal Medicine
DX: N73.0 Acute parametritis and pelvic cellulitis (principal); R10.2 Pelvic and perineal pain; R11.2 Nausea with vomiting, unspecified
CPT/HCPCS: 0353U; 36415; 74176; 76705; 76830; 76856; 80053; 81003; 83735; 84702; 85025; 87480; 87510; 87660; 93975; 99284; J0696; J1885; J2060; J2270; J2405

== ENCOUNTER → 2023-03-03 08:23 | Outpatient (BNV) | payer OTHER, SELFPAY | PROVIDERS: Emergency Provider Emergency Medicine; PCP Internal Medicine; Visit Provider Obstetrics & Gynecology | DX: N73.0 Acute parametritis and pelvic cellulitis (principal); N94.89 Other specified conditions associated with female genital organs and menstrual cycle | CPT/HCPCS: 99283 ==

== ENCOUNTER 2023-03-09 15:47 | Outpatient (AMB) | payer OTHER, SELFPAY ==
[2023-03-09 16:06] VITALS: BP 108/66; BMI 23.4
--- NOTE | 2023-03-09 16:06 | MHC.OFFVIS ---
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 The patient presented emergency room with pelvic pain on 03/03. The following workup was done CBC, chemistry, UA, hCG all within normal. Pelvic ultrasound showed the following: IMPRESSION: 1. Unremarkable uterus and ovaries. 2. There are prominent vessels in bilateral adnexa likely pelvic venous congestion. 3. There is no free fluid in the cul-de-sac. The patient had cervical motion tenderness uterine adnexal tenderness, was treated for PID with ceftriaxone 500 mg IM and was discharged on doxycycline 100 mg p.o. b.i.d. for 14 days. Since then the patient's pain has improved [facility] Medical History Anxiety and depression Cough Cough due to LYNN inhibitor Seasonal allergies Low back pain Migraine with aura Asthma Surgical History No pertinent past surgical history Family History Paternal Grandmother Breast CA Mother Crohn disease Father Migraine Brother Bipolar 1 disorder Maternal Grandmother Heart disease Maternal Aunt Colon cancer Other Mental health disorder Social History Housing: Apartment Alcohol intake: never Patient Tobacco Use Status: Never used Tobacco e-Cigarette/Vaping Use: Never Used Second Hand Smoke Exposure: No Substance Use Type: Marijuana service: No Current occupational status: employed 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 Current occupational exposures/hazards: No Sexual orientation: Straight/Heterosexual Gender identity: Female Cognitive needs: No Hearing needs: No Vision needs: No Female Reproductive History Menstrual Age of Menarche: 12 Review of Systems Const All systems reviewed & are unremarkable except as noted in HPI and below Reports as per HPI and Reports no additional complaints GI Reports no additional complaints Reports no additional complaints Physical Exam Vital Signs: Last Vital Signs BP 108/66 03/09/23 16:06 BMI result Body Mass Index 23.4 GI Palpation (GI): Soft to palpation, nontender and no guarding Assessment & Plan Assessment & Plan (1) Acute pelvic inflammatory disease: Code(s): N73.0 - Acute parametritis and pelvic cellulitis Plan: Instructions given the patient to continue antibiotics and to call or go to emergency room in case of any of the following occurs temperature above 100.4, persistent or worsening of pelvic pain, nausea or vomiting. All questions answered, the patient verbalized understanding. (2) Pelvic congestion syndrome: Code(s): N94.89 - Other specified conditions associated with female genital organs and menstrual cycle Plan: Discussed the patient the finding on ultrasound possible pelvic congestion syndrome. Instructions given the patient to call if her pain does not improve will consider treatment options for pelvic congestion syndrome. All questions answered, the patient verbalized understanding Coding Level of Care Code Est Pt Level 3 (58714) Diagnoses Acute pelvic inflammatory disease N73.0 Pelvic congestion syndrome N94.89
== END 2023-03-09 16:17 | disposition home or self-care (01) ==
PROVIDERS: PCP Internal Medicine; Visit Provider Obstetrics & Gynecology
DX: N73.0 Acute parametritis and pelvic cellulitis (principal); N94.89 Other specified conditions associated with female genital organs and menstrual cycle
CPT/HCPCS: 99213

== ENCOUNTER → 2023-03-09 15:47 | Outpatient (BNVA) | payer OTHER, SELFPAY | PROVIDERS: PCP Internal Medicine; Visit Provider Obstetrics & Gynecology | DX: N73.0 Acute parametritis and pelvic cellulitis (principal); N94.89 Other specified conditions associated with female genital organs and menstrual cycle | CPT/HCPCS: 99212 ==

== ENCOUNTER 2023-03-19 13:33 | Emergency (ER) | payer OTHER, SELFPAY ==
[2023-03-19 13:47] VITALS: BP 99/60; PULSE 74; RESP 18; TEMP 36.2; O2SAT 99; BMI 23.0
--- NOTE | 2023-03-19 13:56 | ED_ITS ---
HPI - General Adult General Chief complaint: Nausea/Vomiting/Diarrhea Stated complaint: vomiting dehydrated Time Seen by Provider: 03/19/23 14:36 Source: patient Mode of arrival: ambulatory Limitations: no limitations History of Present Illness HPI narrative: 22 yo female who has a history of amenorrhea (being followed by PATIENT CARE MANAGER), currently has PID on 2nd course of doxycycline here with complaints of nausea/vomiting after taking a dose of doxycycline on an empty stomach. Patient reports long standing history of vomiting/upper abdominal pain currently on a PPI and being followed by GI. No current upper abdominal pain, diarrhea. fevers, chills. Does have some lower pelvic discomfort and thick vaginal discharge which she feels is worse since completing course of progesterone. Has not had sexual intercourse in >1 month with negative testing several times since for STI all negative. No urinary symptoms. Related Data Home Medications Medication Instructions Recorded Confirmed ketorolac 10 mg tablet 10 mg PO Q8H 02/16/23 02/16/23 Previous Rx's Medication Instructions Recorded ondansetron 4 mg disintegrating 4 mg PO Q6-8H PRN nausea and 02/12/23 tablet vomiting #10 tabs progesterone micronized 200 mg 200 mg PO BEDTIME 5 days #5 caps 02/28/23 capsule (Prometrium) doxycycline hyclate 100 mg capsule 100 mg PO BID 14 days #28 caps 03/03/23 ketorolac 10 mg tablet 10 mg PO TID PRN pain 5 days #15 03/03/23 tabs ondansetron 4 mg disintegrating 4 mg PO Q6H PRN nausea and 03/03/23 tablet vomiting #14 tabs clotrimazole 2 % vaginal cream 1 appful vaginal BEDTIME 3 days 03/19/23 #21 grams ondansetron 4 mg disintegrating 4 mg PO Q6H PRN nausea and 03/19/23 tablet vomiting #15 tabs Allergies Allergy/AdvReac Type Severity Reaction Status Date / Time Seasonal Allergies Allergy Intermediate Itchy Eyes Verified 03/19/23 13:47 Review of Systems Review of Systems: Yes all other systems are reviewed and are negative Constitutional: Constitutional: Reports no additional constitutional complaints, Denies body ache(s), Denies chills, Denies fever(s), Denies headache(s) and Denies weakness Eyes: Eyes: Reports no additional eye complaints and Denies change in vision ENT: Reports system reviewed and no additional complaints, except as documented, Denies dizziness, Denies headache(s), Denies nasal congestion, Denies nasal discharge and Denies neck pain Cardiovascular: Cardiovascular: Reports no additional cardiovascular complaints, Denies chest pain, Denies leg edema and Denies dyspnea Respiratory: Respiratory: Reports no additional respiratory complaints, Denies cough and Denies dyspnea Gastrointestinal: Gastrointestinal: Reports no additional gastrointestinal com plaints, Denies abdominal pain, Denies diarrhea, Reports nausea and Reports vomiting Genitourinary: Genitourinary: Reports no additional female genitourinary complaints, Reports amenorrhea, Denies dysuria, Reports pelvic pain, Denies flank pain, Denies urinary incontinence, Denies urinary hesitancy, Denies urinary urgency, Reports vaginal discharge, Denies vaginal dryness, Denies vaginal odor and Denies vaginal pruritus Musculoskeletal: Musculoskeletal: Reports no additional musculoskeletal complaints, Denies back pain, Denies arthralgias, Denies joint swelling, Denies neck pain, Denies numbness and Denies tingling Integumentary/Breasts: Skin/Breast: Reports system reviewed and no additional complaints, except as docu and Denies rash Neurologic: Reports system reviewed and no additional complaints, except as documented, Denies Abnormal speech present, Denies dizziness, Denies headache(s), Denies numbness, Denies tingling and Denies weakness PMFSH Past Medical History Attestation statement: The following information was validated with the patient. Source: old records reviewed and nursing notes reviewed Medical History Anxiety and depression Cough Cough due to LYNN inhibitor Seasonal allergies Low back pain Migraine with aura Asthma Surgical History No pertinent past surgical history Family History Family History Paternal Grandmother Breast CA Mother Crohn disease Father Migraine Brother Bipolar 1 disorder Maternal Grandmother Heart disease Maternal Aunt Colon cancer Other Mental health disorder Social History Social History Housing: Apartment Alcohol intake: never Patient Tobacco Use Status: Never used Tobacco e-Cigarette/Vaping Use: Never Used Second Hand Smoke Exposure: No Substance Use Type: Marijuana Advance Directives: No Advance Directives Information Provided: No service: No Current occupational status: employed 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 Current occupational exposures/hazards: No Sexual orientation: Straight/Heterosexual Gender identity: Female Cognitive needs: No Hearing needs: No Vision needs: No Physical Exam ED Vital Signs: Vital Signs - 24 hr 03/19/23 13:47 Temperature 97.1 F Pulse Rate 74 Respiratory Rate 18 Blood Pressure 99/60 Pulse Oximetry 99 Oxygen Delivery Method Room Air BMI result Body Mass Index 23.0 Const General: cooperative, healthy appearing, comfortable and no acute distress Orientation/consciousness: patient oriented x3 Limitations: no limitations HENMT Head: Yes normal to inspection Ears: hearing grossly normal bilaterally General nose exam: Normal external nose present Face and sinus: Yes normal facial exam Mouth: Normal oral and palatal mucosa present Throat: Yes posterior oropharynx normal Eyes General: appearance normal, both eyes and all related structures Pupils: Equal, round and reactive pupils present Neck Neck: Yes normal visual inspection Chest Chest palpation & inspection: normal inspection of the chest Resp Effort & Inspection: normal respiratory effort Auscultation: clear to auscultation bilaterally Cardio Rate: regular rate Rhythm: regular rhythm Peripheral pulses: Peripheral pulses 2+ throughout GI Inspection: Yes normal to inspection Palpation (GI): Soft to palpation and nontender Auscultation: normal bowel sounds Other: perineum, labia majora excoriation with thick white vaginal discharge at the introitus 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 Back/Spine/Pelvis Thoracic/Lumbar Spine: thoracic and lumbar spine normal to inspection Skin General skin exam: no rashes or lesions noted Neuro General: patient oriented x3, no focal motor deficits and normal sensation to monofilament Cranial nerves: Yes Equal, round and reactive pupils present Cognition (Neuro): normal cognition Speech: No Abnormal speech present Gait exam (Neuro): Normal gait present Motor exam (neuro): 5/5 motor strength present throughout Extrem General: Yes normal to inspection Course Course Course Narrative: RME: 22 yold female with known UTI presents to the ED for vomitting after taking meds. also states complaints such as ithcing. Reevaluation(s) Reevaluation #1: Exam consistent with Regine. Patient will be treated with clotrimazole. She was able to drink some stephanie jerilyn and ate some crackers with no additional vomiting episodes. I recommended she take her medications after a full meal. Reviewed worrisome signs and symptoms of when to return to the emergency room. Comfortable plan for discharge home. Medications Administered Discontinued Medications Generic Name Dose Route Start Last Admin Trade Name Huong PRN Reason Stop Dose Admin Ondansetron HCl 4 mg 03/19/23 15:32 03/19/23 15:38 Ondansetron Odt 4 Mg Tab.Digna WILKINS 03/19/23 15:33 4 mg ONCE ONE Administration Medical Decision Making Medical Decision Making [facility] Narrative: 22 yo female who has a history of amenorrhea (being followed by PATIENT CARE MANAGER), currently has PID on 2nd course of doxycycline here with complaints of nausea/vomiting after taking a dose of doxycycline on an empty stomach. Patient reports long standing history of vomiting/upper abdominal pain currently on a PPI and being followed by GI. No current upper abdominal pain, diarrhea. fevers, chills. Does have some lower pelvic discomfort and thick vaginal discharge which she feels is worse since completing course of progesterone. Has not had sexual intercourse in >1 month with negative testing several times since for STI all negative. No urinary symptoms. Abdomen soft nontender, non-toxic appearing. VSS Will give SL zofran, do pelvic exam for BV panel Differential Diagnosis Differential Diagnoses: The differential diagnosis associated with the presentation includes Medication side-effect bacterial vaginosis Regine low concern for gonorrhea or chlamydia, ovarian torsion Admission/Observation Consideration of admission/observation: Escalation of care including admission/observation considered Lab Data [facility] Lab Attestation statement: I reviewed the patient's lab results. Labs: Lab Results 03/19/23 Range/Units 14:35 Urine Color Dark Yellow Urine Appearance Clear Urine pH 5.5 (5.0-9.0) Ur Specific [place] 1.025 (1.005-1.025) Urine Protein Negative (Neg-Trace) mg/dL Urine Glucose (UA) Negative (Negative) mg/dL Urine Ketones Negative (Negative) mg/dL Urine Blood Negative (Negative) Urine Nitrite Negative (Negative) Ur Leukocyte Esterase Trace H (Negative) Urine RBC 0-2 (0-2) /HPF Urine WBC 0-5 (0-5) /HPF Ur Squamous Epith Cells 3-5 (0-2) /HPF Urine Bacteria None Seen (None Seen) Hyaline Casts 0-2 (0-2) /LPF Urine Test NEGATIVE (NEGATIVE) Tests considered The following testing was considered but not selected: no need for repeat StI testing Discharge Plan Discharge Clinical Impression: Candidal vulvovaginitis Patient Disposition: Home, Self-Care Instructions: Yeast Infection (ED) Additional Instructions: make sure you eat a full meal before taking doxycycline continue your medication Zofran as needed Prescriptions: New ondansetron 4 mg tablet,disintegrating 4 mg PO Q6H PRN (Reason: nausea and vomiting) Qty: 15 0RF clotrimazole 2 % cream 1 appful vaginal BEDTIME 3 Days Qty: 21 0RF No Action ondansetron 4 mg tablet,disintegrating 4 mg PO Q6-8H PRN (Reason: nausea and vomiting) Qty: 10 0RF ketorolac 10 mg tablet 10 mg PO TID PRN (Reason: pain) 5 Days Qty: 15 0RF ondansetron 4 mg tablet,disintegrating 4 mg PO Q6H PRN (Reason: nausea and vomiting) Qty: 14 0RF doxycycline hyclate 100 mg capsule 100 mg PO BID 14 Days Qty: 28 0RF ketorolac 10 mg tablet 10 mg PO Q8H progesterone micronized [Prometrium] 200 mg capsule 200 mg PO BEDTIME 5 Days Qty: 5 0RF Rx Instructions: Take the pill 1 tablet a day for 5 days Referrals: Neto,Neel Henry MD [Primary Care Provider] - 1 week
[2023-03-19 14:57] LABS: Appearance Urine Clear; Color Urine Dark Yellow; Glucose Urine UA Negative (Negative); Leukocyte Esterase Urine Trace (Negative); Nitrite Urine Negative (Negative); PH 5.5 (5.0-9.0); Specific Gravity - Urine 1.025 (1.005-1.025); UMIC TRIGGER UACC YES; Urine Blood Negative (Negative); Urine Ketones Negative (Negative); Urine Protein Negative (Neg-Trace)
[2023-03-19 15:03] LABS: UPreg QC Valid YES; Urine Pregnancy NEGATIVE (NEGATIVE)
[2023-03-19 15:28] LABS: Bacteria Urine None Seen (None Seen); Hyaline Casts Urine 0-2 /LPF (0-2); RBC Urine 0-2 /HPF (0-2); WBC Urine 0-5 /HPF (0-5)
[2023-03-19] MEDS: Ondansetron ODT 4 MG TAB.RAPDIS TRANSLINGU (15:38)
[2023-03-20 13:59] LABS: BV Int Neg Control Negative (Negative); BV Int Pos Control Positive (Positive)
== END 2023-03-19 16:33 | disposition home or self-care (01) ==
PROVIDERS: Nurse Practitioner Family; Physician Assistant; Emergency Provider Emergency Medicine; PCP Internal Medicine
DX: B37.31 Acute candidiasis of vulva and vagina (principal); R11.2 Nausea with vomiting, unspecified; R19.7 Diarrhea, unspecified; E86.0 Dehydration; Z79.899 Other long term (current) drug therapy
CPT/HCPCS: 81001; 81003; 81025; 87480; 87510; 87660; 99283

== ENCOUNTER 2023-03-21 11:51 | Outpatient (AMB) | payer OTHER, SELFPAY ==
--- NOTE | 2023-03-21 11:54 | A.OFFVIS_ITS ---
Intake Vital Signs 03/21/23 11:56 Height 5 ft 3 in Weight 127 lb 13.89 oz BMI 22.6 BP 112/66 Intake Visit Reasons: Follow up/medication/Per X Ray Service Technician Required: No Information Interpreted: non-clinical & clinical Accompanied by: Self / Same As Patient Allergies Seasonal Allergies Allergy (Intermediate, Verified 03/21/23 11:56) Itchy Eyes HPI HPI Comments History of Present Illness Details Presenting for follow-up b.i.d. and amenorrhea. The patient finished her antibiotic course and her pelvic pain has resolved and improved markedly. The patient took Prometrium for 5 days weeks ago and still has amenorrhea [facility] Medical History Anxiety and depression Cough Cough due to LYNN inhibitor Seasonal allergies Low back pain Migraine with aura Asthma Surgical History No pertinent past surgical history Family History Paternal Grandmother Breast CA Mother Crohn disease Father Migraine Brother Bipolar 1 disorder Maternal Grandmother Heart disease Maternal Aunt Colon cancer Other Mental health disorder Social History Housing: Apartment Alcohol intake: never Patient Tobacco Use Status: Never used Tobacco e-Cigarette/Vaping Use: Never Used Second Hand Smoke Exposure: No Substance Use Type: Marijuana service: No Current occupational status: employed 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 Current occupational exposures/hazards: No Sexual orientation: Straight/Heterosexual Gender identity: Female Cognitive needs: No Hearing needs: No Vision needs: No Female Reproductive History Menstrual Age of Menarche: 12 Review of Systems Const All systems reviewed & are unremarkable except as noted in HPI and below Reports as per HPI and Reports no additional complaints GI Reports no additional complaints Reports no additional complaints Physical Exam Vital Signs: Last Vital Signs BP 112/66 03/21/23 11:56 BMI result Body Mass Index 22.6 Assessment & Plan Assessment & Plan (1) Amenorrhea: Code(s): N91.2 - Amenorrhea, unspecified Plan: Urine test done in the office was negative. Since the progesterone withdrawal test was negative with Prometrium, in test negative next step is Premarin 1.25 mg for 21 days with Provera 5 mg p.o. q.d. last 10 days. Instructions given the patient to call in case of positive withdrawal bleed for follow-up afterwards, if negative withdrawal be will order FSH/LH to rule out premature ovarian failure otherwise if positive withdrawal bleed occurs next step will be TSH, prolactin , all questions answered, the patient verbalized understanding and agreed with the plan; instructions given the patient to schedule a follow-up appointment in 4 weeks Medications: New conjugated estrogens (Premarin) 1.25 mg PO DAILY 21 tabs 0RF 21 days medroxyprogesterone (Provera) Start Provera 1 tablet a day the last 10 days of Premarin treatment course 10 mg PO daily 10 tabs 0RF 10 days Coding Level of Care Code Est Pt Level 3 (93614) Diagnoses Amenorrhea N91.2
[2023-03-21 11:56] VITALS: BP 112/66; BMI 22.6
== END 2023-03-21 12:10 | disposition home or self-care (01) ==
PROVIDERS: PCP Internal Medicine; Visit Provider Obstetrics & Gynecology
DX: N91.2 Amenorrhea, unspecified (principal)
CPT/HCPCS: 99213

== ENCOUNTER → 2023-03-21 11:51 | Outpatient (BNVA) | payer OTHER, SELFPAY | PROVIDERS: PCP Internal Medicine; Visit Provider Obstetrics & Gynecology | DX: N91.2 Amenorrhea, unspecified (principal) | CPT/HCPCS: 99212 ==

== ENCOUNTER 2023-04-05 11:49 | Day surgery (SDC) | payer OTHER, SELFPAY ==
--- NOTE | 2023-04-04 09:55 | HO.ANESPROP2 ---
Documented by User: Windy Smith NP 04/04/23 09:56 HPI - Anesthesia Eval Consult details Narrative: 22yo F for Colonoscopy PMFSH Active Problems Active Problems: All Active Problems (Updated 03/19/23 @ 15:45 by Alis Borges NP) Amenorrhea (Acute) Well woman exam (Acute) Nausea & vomiting (Acute) control counseling (Acute) Constipation (Acute) Annual physical exam (Acute) Elevated liver function tests (Acute) Acute gastroenteritis (Acute) Diarrhea (Acute) Right hip pain (Acute) Chronic pain of right knee (Acute) Encounter to establish care (Acute) Depo-Provera contraceptive status (Acute) Family planning (Acute) Well woman exam (Acute) Candidal vulvovaginitis (Acute) Pelvic congestion syndrome (Acute) Complex ovarian cyst (Acute) Pelvic pain (Acute) Encounter for control (Acute) Low back pain (Acute) Anxiety and depression (Acute) Cough (Acute) Cough due to LYNN inhibitor (Acute) Seasonal allergies (Acute) Asthma (Acute) Migraine with aura (Acute) Past Medical History Medical History Anxiety and depression Cough Cough due to LYNN inhibitor Seasonal allergies Low back pain Migraine with aura Asthma Family History Family History Paternal Grandmother Breast CA Mother Crohn disease Father Migraine Brother Bipolar 1 disorder Maternal Grandmother Heart disease Maternal Aunt Colon cancer Other Mental health disorder Surgical History Surgical History (Updated 04/04/23 @ 09:20 by Kenna Eric RN) H/O colonoscopy Social History Social History Housing: Apartment Alcohol intake: never Patient Tobacco Use Status: Never used Tobacco e-Cigarette/Vaping Use: Never Used Second Hand Smoke Exposure: No Use of substances other than those prescribed or required for medical reasons: Yes Substance Use Type: Marijuana Are you DNR?: No Advance Directives: No Advance Directives Information Provided: Yes service: No Current occupational status: employed 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 Current occupational exposures/hazards: No Sexual orientation: Straight/Heterosexual Gender identity: Female Cognitive needs: No Hearing needs: No Vision needs: No Meds Allergies Allergy/AdvReac Type Severity Reaction Status Date / Time Seasonal Allergies Allergy Intermediate Itchy Eyes Verified 03/21/23 11:56 Home Medications Medication Instructions Recorded Confirmed Last Taken Type acetaminophen 500 mg tablet 500 mg PO Q6H PRN pain 04/04/23 04/04/23 Unknown History albuterol sulfate 90 mcg/actuation 2 puff inhalation Q6H PRN wheezing 04/04/23 04/04/23 Unknown History aerosol inhaler (Ventolin HFA) ibuprofen 600 mg tablet 600 mg PO Q6H 04/04/23 04/04/23 Unknown History omeprazole 20 mg capsule,delayed 20 mg PO DAILY 04/04/23 04/04/23 Unknown History release Exam Exam Date and Time: April 04, [id number] Pertinent Lab Results Pertinent Lab Results: Laboratory Tests 03/03/23 08:44 WBC 8.0 Hgb 14.2 Hct 39.9 Plt Count 246 Sodium 140 Potassium 3.9 Chloride 108 Carbon Dioxide 22 BUN 9 Creatinine 0.73 Assessment and Plan Assessment Anesthesia Assessment: Chart Reviewed Documented by User: Mae Robbins MD 04/05/23 12:20 [facility] Past Medical History Medical History Anxiety and depression Cough Cough due to LYNN inhibitor Seasonal allergies Low back pain Migraine with aura Asthma Family History Family History Paternal Grandmother Breast CA Mother Crohn disease Father Migraine Brother Bipolar 1 disorder Maternal Grandmother Heart disease Maternal Aunt Colon cancer Other Mental health disorder Family history of problems with anesthesia: No Surgical History Surgical History (Updated 04/04/23 @ 09:20 by Kenna Eric RN) H/O colonoscopy History of Problems with Anesthesia: No Social History Social History Housing: Apartment Alcohol intake: never Patient Tobacco Use Status: Never used Tobacco e-Cigarette/Vaping Use: Never Used Second Hand Smoke Exposure: No Use of substances other than those prescribed or required for medical reasons: Yes Substance Use Type: Marijuana Are you DNR?: No Advance Directives: No Advance Directives Information Provided: Yes service: No Current occupational status: employed 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 Current occupational exposures/hazards: No Sexual orientation: Straight/Heterosexual Gender identity: Female Cognitive needs: No Hearing needs: No Vision needs: No Meds Allergies Allergy/AdvReac Type Severity Reaction Status Date / Time Seasonal Allergies Allergy Intermediate Itchy Eyes Verified 03/21/23 11:56 Home Medications Medication Instructions Recorded Confirmed Last Taken Type acetaminophen 500 mg tablet 500 mg PO Q6H PRN pain 04/04/23 04/04/23 Unknown History albuterol sulfate 90 mcg/actuation 2 puff inhalation Q6H PRN wheezing 04/04/23 04/04/23 Unknown History aerosol inhaler (Ventolin HFA) ibuprofen 600 mg tablet 600 mg PO Q6H 04/04/23 04/04/23 Unknown History omeprazole 20 mg capsule,delayed 20 mg PO DAILY 04/04/23 04/04/23 Unknown History release Exam Airway Mallampati Class: II TM Dist: >3cm Neck ROM: Full Heart: rrr Lungs: cta Assessment and Plan Assessment Anesthesia Assessment: Anesthesia Plan Discussed Final Anesthetic Review Family History of Problems with Anesthesia: No History of Problems with Anesthesia: No NPO: Yes ASA Class: II Final Preanesthetic Review: No Changes in Pt Med Stat, Meds/Allgs Chart Reviewed and Consent Obtained/Reviewed Patient Risk: Intermediate Procedure Risk: Intermediate Anesthetic Plan Anesthetic Plan: MAC: Disposition: Standard PACU
[2023-04-05 12:02] VITALS: BMI 23.0
[2023-04-05 12:11] VITALS: BP 115/63; PULSE 85; RESP 16; TEMP 36.2; O2SAT 95
--- NOTE | 2023-04-05 12:42 | MHC.SHP ---
Pre-Procedural Eval Section A Date of Service: 04/05/23 The patient is an INPATIENT: No Changes since office visit: No Cold of Flu in the past 2 weeks, No New Medical Problems, No Changes in Medication and No Patient answered all questions The History & Physical has been completed within 30 days and I have reviewed it.: Yes Section B Chief Complaint: Change in bowel habit Allergies: Allergies Allergy/AdvReac Type Severity Reaction Status Date / Time Seasonal Allergies Allergy Intermediate Itchy Eyes Verified 03/21/23 11:56 Plan I have reviewed the history and physical and performed a pertinent physical examination on my patient. No changes have occurred unless specified. Time Spent With Patient Time: Total time managing care of this patient today ____ minutes.
[2023-04-05 13:36] VITALS: BP 107/55; PULSE 88; RESP 16; TEMP 36.4; O2SAT 99
--- NOTE | 2023-04-05 13:40 | PM.OP ---
Brief Operative Note Date of Service: 04/05/23 Pre-op diagnosis: change in bowels Post-op diagnosis: same Procedure: colonoscopy Surgeon: Paul Lu MD Anesthesia: MAC Was an Methods Examiner used for this Procedure?: No Estimated blood loss (mL): 2 Pathology: other Condition: stable Disposition: PACU
[2023-04-05 13:51] VITALS: BP 111/68; PULSE 79; RESP 18; TEMP 36.5; O2SAT 97
--- NOTE | 2023-04-05 14:15 | OP_ITS ---
DATE OF SERVICE: 04/05/2023 SURGEON: Paul Lu MD INDICATIONS: Change in bowel habits. PREOPERATIVE DIAGNOSIS: POSTOPERATIVE DIAGNOSIS: PROCEDURE PERFORMED: Colonoscopy to the terminal ileum with biopsy. ESTIMATED BLOOD LOSS: COMPLICATIONS: ANESTHESIA: Monitored anesthesia care. ASSISTANTS: SPECIMENS: DESCRIPTION OF PROCEDURE: A history and physical was performed. The risks and benefits of the procedure were explained to the patient. Informed consent was obtained. The patient was placed in the left lateral decubitus position. A digital rectal exam was performed and was found to be normal. The Olympus pediatric video colonoscope was introduced into the rectum and advanced to the cecum without difficulty. The cecum was identified by transillumination, palpation, and identification of ileocecal valve. Examination was performed. The scope was removed. She tolerated the procedure well and was returned to the recovery area in stable condition. FINDINGS: The terminal ileum was examined and appeared normal. This was examined for approximately 15 cm, and there was no ileitis. Biopsies were obtained from the examination showed some moderate-sized internal hemorrhoids. terminal ileum. The visualized colonic mucosa was normal without evidence of masses or ulcers. There were no signs of obvious Crohn disease. Sigmoid biopsies were obtained at 20 cm was a less than 5 mm sessile polyp, which was removed with a biopsy forceps. No other polyps were seen. Retroflexed IMPRESSION: Colon polyp. RECOMMENDATION: Follow up the biopsy results. MD LYNSEY Bauer/GAL / [id number]
== END 2023-04-05 15:03 | disposition home or self-care (01) ==
PROVIDERS: PCP Internal Medicine; Visit Provider Internal Medicine Gastroenterology
PROC: 0DJD8ZZ Inspection of Lower Intestinal Tract, Via Natural or Artificial Opening Endoscopic (ICD-10-PCS; CPT 45378; principal; 2023-04-05 13:00)
DX: R19.4 Change in bowel habit (principal); K63.5 Polyp of colon; K64.8 Other hemorrhoids; K21.9 Gastro-esophageal reflux disease without esophagitis; J45.909 Unspecified asthma, uncomplicated; F41.8 Other specified anxiety disorders; Z79.899 Other long term (current) drug therapy
CPT/HCPCS: 45380; 81025; 88305; 88307

== ENCOUNTER 2023-05-03 12:52 | Outpatient (AMB) | payer OTHER, SELFPAY ==
--- NOTE | 2023-05-03 12:58 | MHC.OFFVIS ---
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 The patient complains of mild hair growth on the chin and around the areola [facility] Medical History Anxiety and depression Cough Cough due to LYNN inhibitor Seasonal allergies Low back pain Migraine with aura Asthma Surgical History H/O colonoscopy Family History Paternal Grandmother Breast CA Mother Crohn disease Father Migraine Brother Bipolar 1 disorder Maternal Grandmother Heart disease Maternal Aunt Colon cancer Other Mental health disorder Social History Housing: Apartment Alcohol intake: never Patient Tobacco Use Status: Never used Tobacco e-Cigarette/Vaping Use: Never Used Second Hand Smoke Exposure: No Substance Use Type: Marijuana service: No Current occupational status: employed 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 Current occupational exposures/hazards: No Sexual orientation: Straight/Heterosexual Gender identity: Female Cognitive needs: No Hearing needs: No Vision needs: No Female Reproductive History Menstrual Age of Menarche: 12 Date of last menstrual period: 04/24/23 Review of Systems Const All systems reviewed & are unremarkable except as noted in HPI and below Reports as per HPI and Reports no additional complaints GI Reports no additional complaints Reports no additional complaints Physical Exam Vital Signs: Last Vital Signs BP 110/68 05/03/23 13:00 BMI result Body Mass Index 22.6 Assessment & Plan Assessment & Plan (1) Amenorrhea: Comment: Positive withdrawal test and hirsutism Code(s): N91.2 - Amenorrhea, unspecified Plan: Will order TSH, prolactin, hCG, 17 hydroxyprogesterone and testosterone total and free. Instructions given the patient to schedule a follow-up appointment 2 weeks. All questions answered, the patient verbalized understanding Orders: Orders HCG Quantitative Today N91.2 - Amenorrhea, unspecified Prolactin Today N91.2 - Amenorrhea, unspecified TSH reflex Free T4 Today N91.2 - Amenorrhea, unspecified 17 Hydroxyprogesterone Today N91.2 - Amenorrhea, unspecified Testosterone, Free/Total Today N91.2 - Amenorrhea, unspecified Coding Level of Care Code Est Pt Level 3 (62235) Diagnoses Amenorrhea N91.2
[2023-05-03 13:00] VITALS: BP 110/68; BMI 22.6
== END 2023-05-03 13:56 | disposition home or self-care (01) ==
PROVIDERS: PCP Internal Medicine; Visit Provider Obstetrics & Gynecology
DX: N91.2 Amenorrhea, unspecified (principal)
CPT/HCPCS: 99213

== ENCOUNTER → 2023-05-03 12:52 | Outpatient (BNVA) | payer OTHER, SELFPAY | PROVIDERS: PCP Internal Medicine; Visit Provider Obstetrics & Gynecology | DX: N91.2 Amenorrhea, unspecified (principal) | CPT/HCPCS: 99212 ==

== ENCOUNTER 2023-05-06 08:56 | Outpatient (REF) | payer OTHER, SELFPAY ==
[2023-05-06 10:46] LABS: HCG Quantitative < 2 mIU/mL; TSH reflex Free T4 0.51 uIU/mL (0.32-4.0)
[2023-05-08 05:33] LABS: Prolactin 5.8 ng/mL
[2023-05-11 20:03] LABS: Testosterone, Free 2.9 pg/mL (0.1-6.4); Testosterone, Total 30 ng/dL (2-45)
== END 2023-05-06 08:57 | disposition home or self-care (01) ==
LOC: HO.LAB 08:56
PROVIDERS: PCP Internal Medicine; Visit Provider Obstetrics & Gynecology
DX: N91.2 Amenorrhea, unspecified (principal)
CPT/HCPCS: 36415; 83498; 84146; 84402; 84403; 84443; 84702

== ENCOUNTER 2023-05-17 10:17 | Outpatient (AMB) | payer OTHER, SELFPAY ==
--- NOTE | 2023-05-17 10:22 | MHC.OFFVIS ---
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 TSH, hCG, prolactin, 17 hydroxyprogesterone and total and free testosterone all are negative [facility] Medical History Anxiety and depression Cough Cough due to LYNN inhibitor Seasonal allergies Low back pain Migraine with aura Asthma Surgical History H/O colonoscopy Family History Paternal Grandmother Breast CA Mother Crohn disease Father Migraine Brother Bipolar 1 disorder Maternal Grandmother Heart disease Maternal Aunt Colon cancer Other Mental health disorder Housing: Apartment Alcohol intake: never Patient Tobacco Use Status: Never used Tobacco e-Cigarette/Vaping Use: Never Used Second Hand Smoke Exposure: No Substance Use Type: Marijuana service: No Current occupational status: employed 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 Current occupational exposures/hazards: No Sexual orientation: Straight/Heterosexual Gender identity: Female Cognitive needs: No Hearing needs: No Vision needs: No Female Reproductive History Menstrual Age of Menarche: 12 Date of last menstrual period: 04/24/23 Review of Systems Const All systems reviewed & are unremarkable except as noted in HPI and below Reports as per HPI and Reports no additional complaints GI Reports no additional complaints Reports no additional complaints Physical Exam Vital Signs: Last Vital Signs BP 90/60 05/17/23 10:24 BMI result Body Mass Index 26.6 Assessment & Plan Assessment & Plan (1) PCOS (polycystic ovarian syndrome): Code(s): E28.2 - Polycystic ovarian syndrome Plan: Discussed with the patient the results of her blood work included TSH, prolactin, testosterone, 17 hydroxyprogesterone and DHEA-S. Explained to the patient that she has a diagnosis of PCOS. D/w the patient the association of PCOS with an increase in the risk of diabetes or pre diabetes, heart disease, hypercholesterolemia and metabolic syndrome, endometrial hyperplasia and/or cancer if untreated and an increase in the risk of breast cancer. Recommended for the patient the following: -To call her pcp to screen for cardiovascular risk and diabetes with FBS and 2 hr GTT after 75 g OGTT, in addition to cholesterol, lipids, HDL and LDL. -Instructions given to patient to increase exercise combined with dietary changes reduce the risk of diabetes, explained to the patient that reduction in body weight has been associated with improved rate and decreased hirsutism as well as improvement in glucose tolerance and lipid levels -For her Menstrual cycle control: Discussed with the patient the following options of treatment : Combination low-dose hormonal contraceptives are recommended as the primary treatment for menstrual disorder the patient has history of migraine with aura therefore it is contraindicated Or Progestins: Cyclic progesterone versus Mirena IUD No studies have addressed the long-term use of depot medroxyprogesterone acetate and intermittent oral medroxyprogesterone acetate to treat hirsutism. The regimen of cyclic oral progestin therapy or progestin-containing intrauterine devices that most effectively prevent endometrial cancer in women with PCOS is unknown. Progestin-only contraceptives or progestin-containing intrauterine devices are an alternative for endometrial protection, but they are associated with abnormal bleeding patterns in 50?89% of users After discussion all the pros and cons risks benefits of each were discussed with the patient, the patient decided to proceed with cyclic Prometrium, 200 mg p.o. q.d. day 15-24 was sent to patient's pharmacy. Instructions given the patient to use a backup method for control since Prometrium is not a contraceptive method and to schedule a 3 month follow-up appointment. All questions answered, the patient verbalized understanding -regarding Hirsutism-will refer to endocrinology Orders: Referrals Endocrinology Referral E28.2 - Polycystic ovarian syndrome, L68.0 - Hirsutism Medications: New progesterone micronized (Prometrium) Take the pill 1 tablet a day cyclically every month from day 15-24 day 1 being the 1st day of next menstrual cycle 200 mg PO BEDTIME 30 caps 0RF 10 days Coding Level of Care Code Est Pt Level 3 (30507) Diagnoses PCOS (polycystic ovarian syndrome) E28.2
[2023-05-17 10:24] VITALS: BP 90/60; BMI 26.6
== END 2023-05-17 10:36 | disposition home or self-care (01) ==
LOC: HO.HWS 10:17
PROVIDERS: PCP Internal Medicine; Visit Provider Obstetrics & Gynecology
DX: E28.2 Polycystic ovarian syndrome (principal)
CPT/HCPCS: 99213

== ENCOUNTER → 2023-05-17 10:17 | Outpatient (BNVA) | payer OTHER, SELFPAY | PROVIDERS: PCP Internal Medicine; Visit Provider Obstetrics & Gynecology | DX: E28.2 Polycystic ovarian syndrome (principal) | CPT/HCPCS: 99212 ==

== ENCOUNTER 2023-06-12 09:10 | Outpatient (AMB) | payer OTHER, SELFPAY ==
--- NOTE | 2023-06-12 09:12 | A.OFFVIS_ITS ---
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 Information Interpreted: non-clinical & clinical Diving Instructor: Diving Instructor Present (Courtney MORROW) Accompanied by: Self / Same As Patient Allergies Seasonal Allergies Allergy (Intermediate, Verified 06/12/23 09:19) Itchy Eyes Is last menstrual period known: Yes Last menstrual period: 05/26/23 HPI HPI Comments History of Present Illness Details Presenting complaining of suprapubic pelvic pain, urinary frequency associated with vaginal discharge and follow odor no vaginal irritation PFSH Medical History Anxiety and depression Cough Cough due to LYNN inhibitor Seasonal allergies Low back pain Migraine with aura Asthma Surgical History H/O colonoscopy Family History Paternal Grandmother Breast CA Mother Crohn disease Father Migraine Brother Bipolar 1 disorder Maternal Grandmother Heart disease Maternal Aunt Colon cancer Other Mental health disorder Social History Housing: Apartment Alcohol intake: never Patient Tobacco Use Status: Never used Tobacco e-Cigarette/Vaping Use: Never Used Second Hand Smoke Exposure: No Substance Use Type: Marijuana service: No Current occupational status: employed 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 Current occupational exposures/hazards: No Sexual orientation: Straight/Heterosexual Gender identity: Female Cognitive needs: No Hearing needs: No Vision needs: No Female Reproductive History Menstrual Age of Menarche: 12 Date of last menstrual period: 05/26/23 Review of Systems Const All systems reviewed & are unremarkable except as noted in HPI and below Physical Exam Vital Signs: Last Vital Signs BP 100/60 06/12/23 09:19 BMI result Body Mass Index 26.6 General: Yes no CVA tenderness External Female Exam: normal external appearance and normal appearance of the urethra Speculum Exam - Vagina: normal appearance of the vagina, normal palpation, no lesions and no masses Speculum Exam - Cervix: normal appearance of the cervix, normal palpation, no lesions, no masses and nontender Bimanual exam- vagina & uterus: normal bimanual exam, normal palpation, uterine size normal, normal palpation, uterine shape normal, No Cervical tenderness present and non-tender Bimanual Exam- Adnexa, other: normal adnexae Back/Spine/Pelvis Back: no CVA tenderness Results AMB Test Urine AMB Test Urine Negative Last Edit by Coutrney Garcia CMA on 09:21 Assessment & Plan Assessment & Plan (1) UTI (urinary tract infection): Code(s): N39.0 - Urinary tract infection, site not specified Qualifiers: Hematuria presence: without hematuria Urinary tract infection type: acute cystitis Qualified Code(s): N30.00 - Acute cystitis without hematuria Plan: Urine dip showed +2 microscopic hematuria with leukocytes, will send urine for culture start the patient on Macrobid 100 mg p.o. b.i.d. for 5 days. Instr uctions given to patient to call or go to emergency room in case of nausea or vomiting, temperature above 100.4 , no improvement or worsening of her urinary symptoms. Instructions given the patient to schedule a 3 day follow-up appointment. (2) Bacterial vaginosis: Code(s): N76.0 - Acute vaginitis; B96.89 - Other specified bacterial agents as the cause of diseases classified elsewhere Plan: GC and chlamydia cultures with BV panel taken. Will treat with Flagyl 500 mg p.o. b.i.d. x 7 days, Instructions given to the patient to refrain from sexual activity or to use condoms consistently and correctly during the BV treatment regimen, not to douch, it might increase the risk for relapse, and to call if symptoms persist or recur. Orders: Orders AMB HCG Urine Test Today Z32.02 - Encounter for test, result negative Medications: New metronidazole 500 mg PO BID 14 tabs 0RF 7 days nitrofurantoin monohyd/m-cryst 100 mg (Macrobid) 100 mg PO BID 10 caps 0RF 5 days Coding Level of Care Code Est Pt Level 3 (90744) Diagnoses UTI (urinary tract infection) N30.00 Hematuria presence: without hematuria Urinary tract infection type: acute cystitis Bacterial vaginosis N76.0; B96.89
[2023-06-12 09:19] VITALS: BP 100/60; BMI 26.6
== END 2023-06-12 09:50 | disposition home or self-care (01) ==
LOC: HO.HWS 09:10
PROVIDERS: PCP Internal Medicine; Visit Provider Obstetrics & Gynecology
DX: N30.00 Acute cystitis without hematuria (principal); N76.0 Acute vaginitis; B96.89 Other specified bacterial agents as the cause of diseases classified elsewhere; Z32.02 Encounter for pregnancy test, result negative
CPT/HCPCS: 99213

== ENCOUNTER 2023-06-12 09:10 | Outpatient (REF) | payer OTHER, SELFPAY ==
[2023-06-12 15:47] LABS: CT PCR NOT DETECTED (Not Detect.); NG PCR NOT DETECTED (Not Detect.)
[2023-06-13 16:13] LABS: BV Int Neg Control Negative (Negative); BV Int Pos Control Positive (Positive)
== END 2023-06-12 09:11 | disposition home or self-care (01) ==
LOC: HO.LNP 09:10
PROVIDERS: PCP Internal Medicine; Visit Provider Obstetrics & Gynecology
DX: N30.00 Acute cystitis without hematuria (principal); N76.0 Acute vaginitis; B96.89 Other specified bacterial agents as the cause of diseases classified elsewhere; R10.2 Pelvic and perineal pain; Z32.02 Encounter for pregnancy test, result negative
CPT/HCPCS: 0353U; 81025; 87086; 87480; 87510; 87660; 99212

== ENCOUNTER 2023-06-15 10:32 | Outpatient (AMB) | payer OTHER, SELFPAY ==
--- NOTE | 2023-06-15 10:34 | MHC.OFFVIS ---
Intake Vital Signs 06/15/23 10:40 Height 5 ft 3 in Weight 149 lb BMI 26.4 BP 102/64 Intake Visit Reasons: Follow up pelvic pain Geodetic Surveyor Required: No Information Interpreted: non-clinical & clinical Lubricating Specialist: Lubricating Specialist Present (Courtney) Allergies Seasonal Allergies Allergy (Intermediate, Verified 06/15/23 10:40) Itchy Eyes Is last menstrual period known: Yes Last menstrual period: 06/06/23 Post menopausal: No HPI HPI Comments History of Present Illness Details Presenting for follow-up pelvic pain microscopic hematuria/BV. GC/CT, BV panel were negative urine test in the office last visit was negative. The patient pelvic pain and all the wrist discharge has resolved completely. Urine culture was negative PFS Medical History Anxiety and depression Cough Cough due to LYNN inhibitor Seasonal allergies Low back pain Migraine with aura Asthma Surgical History H/O colonoscopy Family History Paternal Grandmother Breast CA Mother Crohn disease Father Migraine Brother Bipolar 1 disorder Maternal Grandmother Heart disease Maternal Aunt Colon cancer Other Mental health disorder Social History Housing: Apartment Alcohol intake: never Patient Tobacco Use Status: Never used Tobacco e-Cigarette/Vaping Use: Never Used Second Hand Smoke Exposure: No Substance Use Type: Marijuana service: No Current occupational status: employed 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 Current occupational exposures/hazards: No Sexual orientation: Straight/Heterosexual Gender identity: Female Cognitive needs: No Hearing needs: No Vision needs: No Female Reproductive History Menstrual Age of Menarche: 12 Date of last menstrual period: 06/06/23 control method: none Review of Systems Const All systems reviewed & are unremarkable except as noted in HPI and below Reports as per HPI and Reports no additional complaints GI Reports no additional complaints Reports no additional complaints Physical Exam Vital Signs: Last Vital Signs BP 102/64 06/15/23 10:40 BMI result Body Mass Index 26.4 Results AMB Urinalysis, Automated UA Leukoctes 0.5 Johnie/uL Last Edit by CRISTHIAN Mora on 06/15/23 10:57 UA Nitrite Negative Last Edit by Rosi Garciazachariah CRISTHIAN on 06/15/23 10:57 UA Urobilinogen 0.5 mg/dL Last Edit by Rosi Garciazachariah A on 06/15/23 10:57 UA Protein 0.5 mg/dL Last Edit by Rosi George A on 06/15/23 10:57 UA pH 5.5 Last Edit by Rosi Garciadro A on 06/15/23 10:57 UA Blood 0 Eric/uL Last Edit by Rosi Garciadro A on 06/15/23 10:57 UA Specific [place] 1.030 Last Edit by Rosi Garciazachariah Tracee on 06/15/23 10:57 UA Ketone Positive Last Edit by Rosi Garciadro Tracee on 06/15/23 10:57 UA Bilirubin 0 mg/dL Last Edit by Rosi Garciazachariah A on 06/15/23 10:57 UA Glucose 0 mg/dL Last Edit by Rosi Garciazachariah [facility] on 06/15/23 10:57 Assessment & Plan Assessment & Plan (1) Pelvic pain: Comment: Resolved Code(s): R10.2 - Pelvic and perineal pain Plan: Urine dip in done in the office showed negative microscopic hematuria. Discussed with the patient the negative urine dip negative GC/chlamydia and BV panel. Instructions given the patient to call in case of recurrence of her pelvic pain. All questions answered, the patient verbalized understanding Orders: Orders AMB Urinalysis Automated Today Z13.9 - Encounter for screening, unspecified Coding Level of Care Code Est Pt Level 3 (82482) Diagnoses Pelvic pain R10.2
[2023-06-15 10:40] VITALS: BP 102/64; BMI 26.4
== END 2023-06-15 10:59 | disposition home or self-care (01) ==
PROVIDERS: PCP Internal Medicine; Visit Provider Obstetrics & Gynecology
DX: R10.2 Pelvic and perineal pain (principal); Z13.9 Encounter for screening, unspecified
CPT/HCPCS: 99213

== ENCOUNTER → 2023-06-15 10:32 | Outpatient (BNVA) | payer OTHER, SELFPAY | PROVIDERS: PCP Internal Medicine; Visit Provider Obstetrics & Gynecology | DX: R10.2 Pelvic and perineal pain (principal) | CPT/HCPCS: 81003; 99212 ==

== ENCOUNTER 2023-08-17 11:29 | Outpatient (AMB) | payer MEDICAID, SELFPAY ==
--- NOTE | 2023-08-17 11:48 | A.OFFVIS_ITS ---
Intake Vital Signs 08/17/23 11:55 Height 5 ft 3 in Weight 147 lb 11.355 oz BMI 26.2 BP 110/66 Intake Visit Reasons: 3 month med follow up Allergies Seasonal Allergies Allergy (Intermediate, Verified 06/15/23 10:40) Itchy Eyes HPI HPI Comments History of Present Illness Details Presenting for follow-up. The patient is having spontaneous irregular menstrual cycles off Prometrium with no additional complaints. [facility] Medical History Anxiety and depression Cough Cough due to LYNN inhibitor Seasonal allergies Low back pain Migraine with aura Asthma Surgical History H/O colonoscopy Family History Paternal Grandmother Breast CA Mother Crohn disease Father Migraine Brother Bipolar 1 disorder Maternal Grandmother Heart disease Maternal Aunt Colon cancer Other Mental health disorder Social History Housing: Apartment Alcohol intake: never Patient Tobacco Use Status: Never used Tobacco e-Cigarette/Vaping Use: Never Used Second Hand Smoke Exposure: No Substance Use Type: Marijuana service: No Current occupational status: employed 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 Current occupational exposures/hazards: No Sexual orientation: Straight/Heterosexual Gender identity: Female Cognitive needs: No Hearing needs: No Vision needs: No Female Reproductive History Menstrual Age of Menarche: 12 Review of Systems Const All systems reviewed & are unremarkable except as noted in HPI and below Reports as per HPI and Reports no additional complaints GI Reports no additional complaints Reports no additional complaints Physical Exam Vital Signs: Last Vital Signs BP 110/66 08/17/23 11:55 BMI result Body Mass Index 26.2 Assessment & Plan Assessment & Plan (1) Amenorrhea: Comment: Resolved Code(s): N91.2 - Amenorrhea, unspecified Plan: Since the patient 's amenorrhea has resolved spontaneously, instructions given to patient to stay off Prometrium and to report any abnormal uterine bleeding. All questions answered, the patient verbalized understanding Coding Level of Care Code Est Pt Level 3 (72570) Diagnoses Amenorrhea N91.2
[2023-08-17 11:55] VITALS: BP 110/66; BMI 26.2
== END 2023-08-17 14:07 | disposition home or self-care (01) ==
LOC: HO.HWS 11:29
PROVIDERS: PCP Internal Medicine; Visit Provider Obstetrics & Gynecology
DX: N91.2 Amenorrhea, unspecified (principal)
CPT/HCPCS: 99213

== ENCOUNTER → 2023-08-17 11:29 | Outpatient (BNVA) | payer MEDICAID, SELFPAY | PROVIDERS: PCP Internal Medicine; Visit Provider Obstetrics & Gynecology | DX: N91.2 Amenorrhea, unspecified (principal) | CPT/HCPCS: 99212 ==

== ENCOUNTER 2023-10-14 11:54 | Emergency (ER) | payer OTHER, SELFPAY ==
--- NOTE | ~2023-10-14 | CT_ITS ---
EXAMINATION: CT abdomen pelvis wo IV con CLINICAL INFORMATION: Abdominal pain COMPARISON: Prior CT 03/03/2023 TECHNIQUE: Multidetector volumetric imaging was performed from the superior aspect of the liver through the pubic symphysis , noncontrast CT. Sagittal and coronal reformatted images were obtained on the technologist's workstation. This CT examination was performed using dose optimization techniques as appropriate, variously including the following: *Automated exposure control *Adjustment of mA and/or kV according to patient size (this includes techniques or standardized protocols for targeted exams where dose is matched to indication/reason for exam; i.e. extremities or head) *Use of iterative reconstruction technique DLP: 334 mGy-cm FINDINGS: LOWER THORAX: Included lung bases are clear. HEPATOBILIARY: No focal hepatic lesions. No biliary ductal dilatation. GALLBLADDER: Gallbladder unremarkable. SPLEEN: Spleen is normal in size. PANCREAS: No focal mass or ductal dilatation. STOMACH AND GASTROINTESTINAL TRACT: Stomach is grossly unremarkable. There is no bowel distention or thickening. No CT evidence of appendicitis. ADRENALS: No adrenal nodules. KIDNEYS/URETERS: No hydronephrosis, stones or solid mass lesions. URINARY BLADDER: Partially decompressed. PELVIC VISCERA: There is a small amount of free fluid in the cul-de-sac uncertain etiology, this patient age group most commonly due to ruptured follicle. PERITONEUM: There is no free air. LYMPH NODES: No lymphadenopathy. VASCULAR:Abdominal aorta normal in size, no aneurysm found. BONES, ABDOMINAL WALL AND SOFT TISSUES: Age-appropriate changes of the spine and skeletal system, no destructive osteolytic or osteosclerotic bone lesion found CT/CT abdomen pelvis wo IV con IMPRESSION: 1. There is a small amount of free fluid in the cul-de-sac uncertain etiology, in this patient age group most commonly due to ruptured follicle. 2. No CT evidence of bowel obstruction. No kidney stone or hydronephrosis. No CT evidence of appendicitis.
[2023-10-14 12:08] VITALS: BP 105/63; PULSE 79; RESP 18; TEMP 36.2; O2SAT 100; BMI 22.4
--- NOTE | 2023-10-14 12:09 | ED_ITS ---
HPI - Abdominal Pain General Chief Complaint: Abdominal Pain Stated Complaint: Menstrual cramps, cold sweats Time Seen by Provider: 10/14/23 12:38 Source: patient, RN notes reviewed and old records reviewed Mode of arrival: ambulatory Limitations: no limitations History of Present Illness HPI narrative: 23 year old female with pmhx significant for PCOS, asthma, migraines presents to the ED today for evaluation of abdominal pain that began on waking this morning. Abdominal pain located across her lower abdomen. She describes it as a cramping sensation. Pain has been constant since onset. Admits to associated nausea, vomiting, diarrhea, and increased urinary frequency that began yesterday. Last BM this morning. LMP 1 mo ago. She notes she is due to begin her menstrual period on Monday (in 2 days). Endorses chance of . Admits to history of similar abdominal pain around her menstrual cycle related to her PCOS. Denies known sick contacts. Denies fevers, chills, sore throat, chest pain, sob, flank pain, dysuria, hematuria, vaginal bleeding. Related Data Home Medications ?Medication ?Instructions ?Recorded ?Confirmed acetaminophen 500 mg tablet 500 mg PO Q6H PRN pain 04/04/23 04/04/23 albuterol sulfate 90 mcg/actuation 2 puff inhalation Q6H PRN wheezing 04/04/23 04/04/23 aerosol inhaler (Ventolin HFA) ibuprofen 600 mg tablet 600 mg PO Q6H 04/04/23 04/04/23 omeprazole 20 mg capsule,delayed 20 mg PO DAILY 04/04/23 04/04/23 release Previous Rx's ?Medication ?Instructions ?Recorded doxycycline hyclate 100 mg capsule 100 mg PO BID 14 days #28 caps 03/03/23 ketorolac 10 mg tablet 10 mg PO TID PRN pain 5 days #15 03/03/23 tabs ondansetron 4 mg disintegrating 4 mg PO Q6H PRN nausea and 03/03/23 tablet vomiting #14 tabs clotrimazole 2 % vaginal cream 1 appful vaginal BEDTIME 3 days 03/19/23 #21 grams conjugated estrogens 1.25 mg 1.25 mg PO DAILY 21 days #21 tabs 03/21/23 tablet (Premarin) medroxyprogesterone 10 mg tablet 10 mg PO daily 10 days #10 tabs 03/21/23 (Provera) progesterone micronized 200 mg 200 mg PO BEDTIME 10 days #30 caps 05/17/23 capsule (Prometrium) metronidazole 500 mg tablet 500 mg PO BID 7 days #14 tabs 06/12/23 nitrofurantoin 100 mg PO BID 5 days #10 caps 06/12/23 monohydrate/macrocrystals 100 mg capsule (Macrobid) Allergies Allergy/AdvReac Type Severity Reaction Status Date / Time Seasonal Allergies Allergy Intermediate Itchy Eyes Verified 10/14/23 12:13 Review of Systems Review of Systems Constitutional: No fever, chills, fatigue, night sweats, weight changes ENT/Mouth: No ear pain, hearing loss, nasal congestion, sinus pain, rhinorrhea, sore throat Eyes: No eye pain, swelling, redness, vision changes, discharge Cardio: No chest pain, palpitations, HEADLEY, orthopnea, peripheral edema Pulm: No SOB, cough, sputum, wheezing, dyspnea, hemoptysis GI: No hematemesis, constipation, hematochezia, melena, +abd pain, +nausea, +vomiting, +diarrhea : No irregular bleeding, dysuria, frequency, urgency, hesitancy, hematuria, flank pain, urinary flow changes, urinary incontinence or retention MSK: No back pain, neck pain, joint pain, myalgias Skin: No lesions, rashes Neuro: No weakness, numbness, paresthesias, LOC, dizziness, headache Psych: No anxiety/panic, depression, SI/HI, AH/VH All other systems reviewed and are negative. [facility] Past Medical History Attestation statement: The following information was validated with the patient. Source: old records reviewed and nursing notes reviewed Medical History Anxiety and depression Cough Cough due to LYNN inhibitor Seasonal allergies Low back pain Migraine with aura Asthma Surgical History H/O colonoscopy Family History Family History Paternal Grandmother Breast CA Mother Crohn disease Father Migraine Brother Bipolar 1 disorder Maternal Grandmother Heart disease Maternal Aunt Colon cancer Other Mental health disorder Social History Social History (Reviewed 10/14/23 @ 16:38 by SIVAN Najera Housing: Apartment Alcohol intake: never Patient Tobacco Use Status: Never used Tobacco e-Cigarette/Vaping Use: Never Used Second Hand Smoke Exposure: No Substance Use Type: Marijuana Advance Directives: No Advance Directives Information Provided: Yes service: No Current occupational status: employed Current occupation: [employer] Current occupational exposures/hazards: No Sexual orientation: Straight/Heterosexual Gender identity: Female Cognitive needs: No Hearing needs: No Vision needs: No Physical Exam ED Vital Signs: Vital Signs - 24 hr 10/14/23 12:08 10/14/23 15:53 Temperature 97.1 F 98.8 F Pulse Rate 79 75 Respiratory Rate 18 16 Blood Pressure 105/63 102/53 L Pulse Oximetry 100 97 Oxygen Delivery Method Room Air Room Air BMI result Body Mass Index 22.4 Vital signs stable, afebrile. Const General: cooperative, healthy appearing, comfortable and no acute distress Orientation/consciousness: patient oriented x3 Limitations: no limitations HENMT Head: Yes normal to inspection, Yes No palpable skull fracture present, Yes normocephalic and Yes atraumatic Eyes General: appearance normal, both eyes and all related structures Pupils: Equal, round and reactive pupils present Neck Neck: Yes normal visual inspection, Yes full ROM and Yes no lymphadenopathy Resp Effort & Inspection: normal respiratory effort and able to speak in complete sentences Auscultation: clear to auscultation bilaterally Cardio Rate: regular rate Rhythm: regular rhythm GI Other: Abdomen soft, nondistended, tender to palpation of the right lower and left lower quadrants. No rebound tenderness or guarding. Normoactive bowel sounds x4. Inspection: Yes normal to inspection General: Yes no CVA tenderness Back/Spine/Pelvis Back: no CVA tenderness Skin General skin exam: no rashes or lesions noted Neuro General: patient oriented x3 and gait normal Cranial nerves: Yes Equal, round and reactive pupils present Extrem General: Yes normal to inspection Course Course Course Narrative: This is a rapid medical exam. deferred additional HPI, ROS, PE to primary provider. 23 yo female with a history of PCOS, asthma, migraines here with complaints of lower abdominal pain with waking this morning. LMP 1 month ago. Has history of similar episodes per patient related to her PCOS around her menstrual cycle. Will obtain labs, UA, ur preg. VSS Reevaluation(s) Reevaluation #1: 1415-- CBC without leukocytosis or left shift. No anemia. H&H stable. Renal function WNL. No acute electrolyte abnormalities requiring intervention. Normal liver function. Urine negative for infection and . > CT abdomen/pelvis pending. Viral serology pending. 1541-- patient has tested negative for COVID, flu, RSV. CT abdomen/pelvis pending. 1630 - patient getting increasingly more agitated. She reports complete resolution of symptoms and states that she would like to leave. Harassing ED techs to take her IV out. She is now threatening to rip out her IV. I informed her that the results of her CT scan have not returned and that she would have to sign out AMA. She states I already know the CT scan isn't going to show anything so I do not know why I am here . Patient adds that she has a [address] [place] go to the [employer] game and wants to leave. Discussed risks of leaving before receiving imaging results including infection, disability, worsening pain and even . She verbalizes understanding and has signed AMA paperwork. Patient advised to return with new or worsening symptoms. Medical Decision Making Medical Decision Making MDM Narrative: 23 year old female with pmhx significant for PCOS, asthma, migraines presents to the ED today for evaluation of abdominal pain that began on waking this morning. Vital signs stable. Afebrile. She is nontoxic appearing and in NAD. Abdomen is soft, nondistended, tender to palpation of the RLQ and LLQ. no rebound tenderness of guarding. normoactive bs x4. no McBurney point tenderness. Negative Rovsing sign. No CVAT bilaterally. No rashes. Differential diagnosis includes menstruation, PCOS, , ovarian cyst, ovarian cyst rupture, viral syndrome, gastroenteritis. Lower suspicion for ectopic . Labs, UA, urine obtained prior to my assumption of care. Will add on viral serology and CT abdomen/pelvis. Patient receiving IV fluids and IV pain medication. Differential Diagnosis Differential Diagnoses: The differential diagnosis associated with the presentation includes as above. Admission/Observation not indicated. Lab Data [facility] Lab Attestation statement: I reviewed the patient's lab results. as above. 10/14/23 12:30 10/14/23 12:30 Labs: Lab Results 10/14/23 10/14/23 Range/Units 12:30 13:31 WBC 7.9 (4.8-10.8) X10*3/uL RBC 5.22 (4.20-5.50) X10*6/uL Hgb 14.6 (12.0-16.0) g/dl Hct 41.8 (37.0-47.0) % MCV 80.1 (80.0-98.0) fL MCH 28.0 (27.0-33.0) pg MCHC 34.9 (31.0-35.0) g/dl RDW 13.1 (11.0-16.0) % Plt Count 234 (160-400) X10*3/uL MPV 10.6 (9.4-12.3) fL Immature Gran % (Auto) 0.3 (0.0-0.4) % Neut % (Auto) 75.6 H (45-73) % Lymph % (Auto) 19.3 L (20-40) % [place] % (Auto) 3.9 (2-11) % Eos % (Auto) 0.4 (0-4) % Baso % (Auto) 0.5 (0-2) % Lymph # (Auto) 1.5 (1.2-4.9) X10*3/uL [place] # (Auto) 0.3 (0.1-1.2) X10*3/uL Eos # (Auto) 0.0 (0.0-0.4) X10*3/uL Baso # (Auto) 0.0 (0.0-0.2) X10*3/uL Abs Immat Gran (auto) 0.02 (0.00-0.03) X10*3/uL Absolute Neuts (auto) 6.0 (2.0-8.3) x10*3/uL Absolute Nucleated RBC 0.000 (0.0-0.012) X10*3/uL Nucleated RBC % (auto) 0.0 (0.0-0.2) /100WBC Sodium 142 (135-145) mmol/L Potassium 3.6 (3.3-5.1) mmol/L Chloride 112 H (96-108) mmol/L Carbon Dioxide 21 L (22-29) mmol/L Anion Gap 13 (12-20) BUN 8 L (9-16) mg/dL Creatinine 0.61 (0.5-1.4) mg/dL Estim Creat Clear Calc 117.6 Estimated GFR > 60 Random Glucose 95 (60-115) mg/dL Calcium 9.7 (8.4-10.2) mg/dL Total Bilirubin 0.7 (0.0-1.0) mg/dL Direct Bilirubin 0.3 (0.0-0.5) mg/dL AST 21 (5-31) U/L ALT 19 (0-31) U/L Alkaline Phosphatase 71 (39-117) U/L Total Protein 7.7 (6.5-8.0) g/dL Albumin 4.7 (3.5-5.0) g/dL Urine Color Yellow Urine Appearance Clear Urine pH 6.0 (5.0-9.0) Ur Specific [place] <= 1.005 (1.005-1.025) Urine Protein Negative (Neg-Trace) mg/dL Urine Glucose (UA) Negative (Negative) mg/dL Urine Ketones Negative (Negative) mg/dL Urine Blood Negative (Negative) Urine Nitrite Negative (Negative) Ur Leukocyte Esterase Negative (Negative) Urine Test NEGATIVE (NEGATIVE) Influenza Type A (PCR) NEGATIVE (Negative) Influenza Type B (PCR) NEGATIVE (Negative) RSV RNA Qual (PCR) NEGATIVE (Negative) SARS-CoV-2 RNA (RT-PCR) NEGATIVE (Negative) Independent Interpretation I performed an independent interpretation of an: CT Scan Interpretation: CT scan abdomen/pelvis does not demonstrate acute bowel obstruction, agree with radiologist's interpretation. Radiology Impression Discussion of test interpretation with radiology: I have reviewed the radiologist's reading. Radiologist Impression: EXAMINATION: CT abdomen pelvis wo IV con CLINICAL INFORMATION: Abdominal pain COMPARISON: Prior CT 03/03/2023 TECHNIQUE: Multidetector volumetric imaging was performed from the superior aspect of the liver through the pubic symphysis , noncontrast CT. Sagittal and coronal reformatted images were obtained on the technologist's workstation. This CT examination was performed using dose optimization techniques as appropriate, variously including the following: *Automated exposure control *Adjustment of mA and/or kV according to patient size (this includes techniques or standardized protocols for targeted exams where dose is matched to indication/reason for exam; i.e. extremities or head) *Use of iterative reconstruction technique DLP: 334 mGy-cm FINDINGS: LOWER THORAX: Included lung bases are clear. HEPATOBILIARY: No focal hepatic lesions. No biliary ductal dilatation. GALLBLADDER: Gallbladder unremarkable. SPLEEN: Spleen is normal in size. PANCREAS: No focal mass or ductal dilatation. STOMACH AND GASTROINTESTINAL TRACT: Stomach is grossly unremarkable. There is no bowel distention or thickening. No CT evidence of appendicitis. ADRENALS: No adrenal nodules. KIDNEYS/URETERS: No hydronephrosis, stones or solid mass lesions. URINARY BLADDER: Partially decompressed. PELVIC VISCERA: There is a small amount of free fluid in the cul-de-sac uncertain etiology, this patient age group most commonly due to ruptured follicle. PERITONEUM: There is no free air. LYMPH NODES: No lymphadenopathy. VASCULAR:Abdominal aorta normal in size, no aneurysm found. BONES, ABDOMINAL WALL AND SOFT TISSUES: Age-appropriate changes of the spine and skeletal system, no destructive osteolytic or osteosclerotic bone lesion found CT/CT abdomen pelvis wo IV con IMPRESSION: 1. There is a small amount of free fluid in the cul-de-sac uncertain etiology, in this patient age group most commonly due to ruptured follicle. 2. No CT evidence of bowel obstruction. No kidney stone or hydronephrosis. No CT evidence of appendicitis. Independent Historian Clinical information obtained from an independent historian. History obtained from or confirmed by: Parent (mom) External Record Review External record reviewed: Inpatient record, Office record, Outpatient record, Prior outpatient labs, Prior outpatient radiology and Primary care record Prescription Management I considered prescription management with: Pain Medication Chronic Conditions Patient?s care impacted by: Other (PCOS) Social Determinants Patient?s care significantly limited by Social Determinants of Health including: Other Social Determinant of Health Medications Administered Discontinued Medications Generic Name Dose Route Start Last Admin Trade Name Freq PRN Reason Stop Dose Admin Sodium Chloride 1,000 mls @ 999 mls/hr 10/14/23 13:30 10/14/23 13:30 Ns IV 10/14/23 14:30 999 mls/hr .Q1H1M SHARON Administration Ketorolac Tromethamine 30 mg 10/14/23 13:17 10/14/23 13:33 Ketorolac Tromethamine 30 Mg/Ml Vial IVPUSH 10/14/23 13:18 30 mg ONCE ONE Administration Ondansetron HCl 4 mg 10/14/23 13:17 10/14/23 13:33 Ondansetron Hcl 4 Mg/2 Ml Vial IVPUSH 10/14/23 13:18 4 mg ONCE ONE Administration Critical Care Time Critical Care Time Critical Care Time: Yes Total Critical Care Time: 46 Attestation: Critical care time in the amount of 46 minutes has been provided to the patient in terms of direct patient care, frequent reevaluation, review and interpretation of medical data and results, and management of potentially life- threatening conditions. This is all outside of any medical procedures. Discharge Plan Discharge Clinical Impression: Dysmenorrhea Patient Disposition: Home, Self-Care Instructions: Dysmenorrhea (ED) Additional Instructions: Your labs today are reassuring. Your urine is negative for infection and . You tested negative for COVID, flu, RSV. Your choosing to leave the emergency department without the results of your CT scan. You are signing out against medical advice. Please return with new or worsening symptoms. The case of an emergency call 911. Prescriptions: No Action clotrimazole 2 % cream 1 appful vaginal BEDTIME 3 Days Qty: 21 0RF ketorolac 10 mg tablet 10 mg PO TID PRN (Reason: pain) 5 Days Qty: 15 0RF ondansetron 4 mg tablet,disintegrating 4 mg PO Q6H PRN (Reason: nausea and vomiting) Qty: 14 0RF doxycycline hyclate 100 mg capsule 100 mg PO BID 14 Days Qty: 28 0RF omeprazole 20 mg capsule,delayed release(DR/EC) 20 mg PO DAILY albuterol sulfate [Ventolin HFA] 90 mcg/actuation HFA aerosol inhaler 2 puff inhalation Q6H PRN (Reason: wheezing) ibuprofen 600 mg tablet 600 mg PO Q6H acetaminophen 500 mg tablet 500 mg PO Q6H PRN (Reason: pain) Premarin 1.25 mg tablet 1.25 mg PO DAILY 21 Days Qty: 21 0RF medroxyprogesterone [Provera] 10 mg tablet 10 mg PO daily 10 Days Qty: 10 0RF Rx Instructions: Start Provera 1 tablet a day the last 10 days of Premarin treatment course metronidazole 500 mg tablet 500 mg PO BID 7 Days Qty: 14 0RF nitrofurantoin monohyd/m-cryst [Macrobid] 100 mg capsule 100 mg PO BID 5 Days Qty: 10 0RF progesterone micronized [Prometrium] 200 mg capsule 200 mg PO BEDTIME 10 Days Qty: 30 0RF Rx Instructions: Take the pill 1 tablet a day cyclically every month from day 15-24 day 1 being the 1st day of next menstrual cycle Stand Alone Forms: Against Medical Advice Print Language: Bahamian
[2023-10-14 12:35] LABS: MANUAL DIFF FLAG NO
[2023-10-14 12:37] LABS: Basophils Percent Auto 0.5 % (0-2); Eosinophils Percent Auto 0.4 % (0-4); Hematocrit 41.8 % (37.0-47.0); Hemoglobin 14.6 g/dl (12.0-16.0); Imm Gran Abs Auto 0.02 X10*3/uL (0.00-0.03); Imm Gran Pct Auto 0.3 % (0.0-0.4); Lymphocytes Absolute Auto 1.5 X10*3/uL (1.2-4.9); Lymphocytes Percent Auto 19.3 % (20-40); Mean Corpuscular HGB Conc 34.9 g/dl (31.0-35.0); Mean Corpuscular Volume 80.1 fL (80.0-98.0); Mean Platelet Volume 10.6 fL (9.4-12.3); Monocytes Absolute Auto 0.3 X10*3/uL (0.1-1.2); Monocytes Percent Auto 3.9 % (2-11); Neutrophils Percent Auto 75.6 % (45-73); Platelet Count 234 X10*3/uL (160-400); Red Blood Count 5.22 X10*6/uL (4.20-5.50); Red Cell Distribution Width 13.1 % (11.0-16.0); White Blood Count 7.9 X10*3/uL (4.8-10.8)
[2023-10-14 12:39] LABS: Appearance Urine Clear; Color Urine Yellow; Glucose Urine UA Negative (Negative); Leukocyte Esterase Urine Negative (Negative); Nitrite Urine Negative (Negative); Specific Gravity - Urine <= 1.005 (1.005-1.025); Urine Blood Negative (Negative); Urine Ketones Negative (Negative); Urine Protein Negative (Neg-Trace)
[2023-10-14 12:41] LABS: UPreg QC Valid YES; Urine Pregnancy NEGATIVE (NEGATIVE)
[2023-10-14 12:55] LABS: Alanine Aminotransferase 19 U/L (0-31); Albumin Level 4.7 g/dL (3.5-5.0); Alkaline Phosphatase 71 U/L (39-117); Anion Gap 13 (12-20); Aspartate Amino Transferase 21 U/L (5-31); Bilirubin Direct 0.3 mg/dL (0.0-0.5); Bilirubin Total 0.7 mg/dL (0.0-1.0); Blood Urea Nitrogen 8 mg/dL (9-16); Calcium 9.7 mg/dL (8.4-10.2); Carbon Dioxide 21 mmol/L (22-29); Chloride 112 mmol/L (96-108); Creatinine Clr Calc Pharmacy 117.6; Estimated Glomerular Filt Rate > 60; Glucose Random 95 mg/dL (60-115); Potassium 3.6 mmol/L (3.3-5.1); Sodium 142 mmol/L (135-145); Total Protein 7.7 g/dL (6.5-8.0)
[2023-10-14] MEDS: 0.9 % Sodium Chloride 1,000 ML 999 ML IV (13:30)
[2023-10-14] MEDS: Ketorolac Tromethamine 30 MG/ML VIAL IVPUSH (13:33)
[2023-10-14] MEDS: ondansetron HCL 4 MG/2 ML VIAL IVPUSH (13:33)
[2023-10-14 14:22] LABS: Influenza A PCR NEGATIVE (Negative); Influenza B PCR NEGATIVE (Negative); Resp Syncy Virus RNA Qual PCR NEGATIVE (Negative); SARS COV2 PCR INHOUSE NEGATIVE (Negative)
[2023-10-14 15:53] VITALS: BP 102/53; PULSE 75; RESP 16; TEMP 37.1; O2SAT 97
[2023-10-14 16:36] VITALS: BP 102/53; PULSE 75; RESP 18; TEMP 37.1; O2SAT 97
== END 2023-10-14 16:44 | disposition home or self-care (01) ==
PROVIDERS: Nurse Practitioner Family; Physician Assistant Medical; Emergency Provider Emergency Medicine; PCP Internal Medicine
DX: N94.6 Dysmenorrhea, unspecified (principal); R10.30 Lower abdominal pain, unspecified; Z11.52 Encounter for screening for COVID-19; Z20.828 Contact with and (suspected) exposure to other viral communicable diseases
CPT/HCPCS: 0241U; 36415; 74176; 80048; 80076; 81003; 81025; 85025; 96361; 96374; 96375; 99284; J1885; J2405

== ENCOUNTER 2023-10-16 07:04 | Emergency (ER) | payer OTHER, SELFPAY ==
--- NOTE | ~2023-10-16 | XR_ITS ---
EXAMINATION: XR ABDOMEN KUB CLINICAL INDICATION: Patient has had ongoing abdominal pain for years. COMPARISON: CT abdomen and pelvis 10/14/2023. KUB 12/16/2022. TECHNIQUE: 2 AP views of the abdomen. FINDINGS: Moderate amount of gas throughout the ascending and transverse colon. Nonobstructive bowel gas pattern. No significant large volume of stool in the colon. No gross pleural effusion identified at the visualized lung bases. XR/XR KUB IMPRESSION: Nonobstructive bowel gas pattern. This study was presented today October 16, 2023 for interpretation. Stat results provided at this time as requested by referring provider.
[2023-10-16 07:10] VITALS: BP 122/74; PULSE 79; RESP 18; TEMP 36.2; O2SAT 100; BMI 22.1
[2023-10-16] MEDS: Ondansetron ODT 4 MG TAB.RAPDIS TRANSLINGU (07:17)
[2023-10-16 07:51] LABS: MANUAL DIFF FLAG NO
[2023-10-16 07:53] LABS: Basophils Percent Auto 0.3 % (0-2); Eosinophils Absolute Auto 0.1 X10*3/uL (0.0-0.4); Eosinophils Percent Auto 1.8 % (0-4); Hematocrit 41.5 % (37.0-47.0); Hemoglobin 14.7 g/dl (12.0-16.0); Imm Gran Abs Auto 0.02 X10*3/uL (0.00-0.03); Imm Gran Pct Auto 0.3 % (0.0-0.4); Lymphocytes Absolute Auto 2.6 X10*3/uL (1.2-4.9); Lymphocytes Percent Auto 33.3 % (20-40); Mean Corpuscular HGB Conc 35.4 g/dl (31.0-35.0); Mean Corpuscular Hemoglobin 27.8 pg (27.0-33.0); Mean Corpuscular Volume 78.6 fL (80.0-98.0); Mean Platelet Volume 10.7 fL (9.4-12.3); Monocytes Absolute Auto 0.5 X10*3/uL (0.1-1.2); Monocytes Percent Auto 6.3 % (2-11); Neutrophils Absolute Auto 4.6 x10*3/uL (2.0-8.3); Platelet Count 264 X10*3/uL (160-400); Red Blood Count 5.28 X10*6/uL (4.20-5.50); White Blood Count 7.9 X10*3/uL (4.8-10.8)
[2023-10-16 08:20] LABS: Alanine Aminotransferase 18 U/L (0-31); Albumin Level 4.4 g/dL (3.5-5.0); Alkaline Phosphatase 67 U/L (39-117); Anion Gap 16 (12-20); Aspartate Amino Transferase 23 U/L (5-31); Bilirubin Total 0.9 mg/dL (0.0-1.0); Blood Urea Nitrogen 8 mg/dL (9-16); Calcium 9.4 mg/dL (8.4-10.2); Carbon Dioxide 16 mmol/L (22-29); Chloride 112 mmol/L (96-108); Creatinine Clr Calc Pharmacy 119.6; Estimated Glomerular Filt Rate > 60; Glucose Random 95 mg/dL (60-115); Potassium 3.5 mmol/L (3.3-5.1); Sodium 140 mmol/L (135-145); Total Protein 7.3 g/dL (6.5-8.0)
[2023-10-16 08:38] LABS: Influenza A PCR NEGATIVE (Negative); Influenza B PCR NEGATIVE (Negative); Resp Syncy Virus RNA Qual PCR NEGATIVE (Negative); SARS COV2 PCR INHOUSE NEGATIVE (Negative)
[2023-10-16 10:30] VITALS: BP 90/50; PULSE 74; RESP 16; TEMP 36.6; O2SAT 100
--- NOTE | 2023-10-16 10:47 | ED.ABDPAIN ---
HPI - Abdominal Pain General Chief Complaint: Abdominal Pain Stated Complaint: abd pain, vomiting, dehydrated? Time Seen by Provider: 10/16/23 10:45 Source: patient Mode of arrival: ambulatory Limitations: no limitations History of Present Illness HPI narrative: 23 yo female with history of PCOS presents to the ER for evaluation of N/V that started 3 days ago. She reports several episodes of yellow/orange diarrhea as well. She states her bowels have not been right since . She had a colonoscopy which she states was unremarkable. She reports for the last 3 days she has been vomiting each morning with epigastric pain and nausea. She also reports a full feeling in her stomach and needing to have bowel movements. She tries to have a BM but nothing comes out. She started her menstrual cycle yesterday. Lower abdominal cramping present. No vaginal discharge. She endorses mild dysuria as well. No fevers. She was seen here in the ER and had a CT Scan that showed a small amount of fluid in the cul-de-sac likely due to a ruptured follicle. MD elicited complaint: abdominal pain Pertinent past history: constipation Onset (ago): day(s) Pain Consistency: intermittent Location: epigastric Severity: severe Quality: stabbing Radiation: none Migration to: no migration Exacerbating factors: eating Context: history of similar episodes Associated symptoms: nausea, vomiting, diarrhea and constipation Related Data Home Medications ?Medication ?Instructions ?Recorded ?Confirmed acetaminophen 500 mg tablet 500 mg PO Q6H PRN pain 04/04/23 04/04/23 albuterol sulfate 90 mcg/actuation 2 puff inhalation Q6H PRN wheezing 04/04/23 04/04/23 aerosol inhaler (Ventolin HFA) ibuprofen 600 mg tablet 600 mg PO Q6H 04/04/23 04/04/23 omeprazole 20 mg capsule,delayed 20 mg PO DAILY 04/04/23 04/04/23 release Previous Rx's ?Medication ?Instructions ?Recorded doxycycline hyclate 100 mg capsule 100 mg PO BID 14 days #28 caps 03/03/23 ketorolac 10 mg tablet 10 mg PO TID PRN pain 5 days #15 03/03/23 tabs ondansetron 4 mg disintegrating 4 mg PO Q6H PRN nausea and 03/03/23 tablet vomiting #14 tabs clotrimazole 2 % vaginal cream 1 appful vaginal BEDTIME 3 days 03/19/23 #21 grams conjugated estrogens 1.25 mg 1.25 mg PO DAILY 21 days #21 tabs 03/21/23 tablet (Premarin) medroxyprogesterone 10 mg tablet 10 mg PO daily 10 days #10 tabs 03/21/23 (Provera) progesterone micronized 200 mg 200 mg PO BEDTIME 10 days #30 caps 05/17/23 capsule (Prometrium) metronidazole 500 mg tablet 500 mg PO BID 7 days #14 tabs 06/12/23 nitrofurantoin 100 mg PO BID 5 days #10 caps 06/12/23 monohydrate/macrocrystals 100 mg capsule (Macrobid) nitrofurantoin 100 mg PO Q12H 5 days #10 caps 10/16/23 monohydrate/macrocrystals 100 mg capsule (Macrobid) ondansetron 4 mg disintegrating 4 mg PO Q8H PRN nausea and 10/16/23 tablet vomiting #10 tabs Allergies Allergy/AdvReac Type Severity Reaction Status Date / Time Seasonal Allergies Allergy Intermediate Itchy Eyes Verified 10/16/23 07:13 Review of Systems Review of Systems Yes all other systems are reviewed and are negative PMF Past Medical History Medical History Anxiety and depression Cough Cough due to LYNN inhibitor Seasonal allergies Low back pain Migraine with aura Asthma Surgical History H/O colonoscopy Family History Family History Paternal Grandmother Breast CA Mother Crohn disease Father Migraine Brother Bipolar 1 disorder Maternal Grandmother Heart disease Maternal Aunt Colon cancer Other Mental health disorder Social History Social History Housing: Apartment Alcohol intake: never Patient Tobacco Use Status: Never used Tobacco Smoked in Last 30 Days: No e-Cigarette/Vaping Use: Never Used Second Hand Smoke Exposure: No Use of substances other than those prescribed or required for medical reasons: Yes Substance Use Type: Marijuana Advance Directives: No Advance Directives Information Provided: No Patient : No service: No Current occupational status: employed 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 Oriented X3. No acute distress. Head: normocephalic, atraumatic. Eyes: Pupils equal, round and reactive to light. ENT: Pharynx normal. No tonsillar swelling or exudate. Neck: Normal inspection. Neck supple. CVS: Normal heart rate and rhythm. Pulses normal. Respiratory: No respiratory distress. Breath sounds normal. Abdomen: Soft with moderate epigastric tenderness, hyperactive +BS x4 Skin: Skin warm and dry. Normal skin color. Normal skin turgor. No rashes. Extremities: No lower extremity edema. No joint swelling. Neuro/psych: Oriented X 3. No motor deficit. No sensory deficit. CN II-XII intact. Normal speech and cognition. Medical Decision Making Medical Decision Making MDM Narrative: 23 yo female presenting with N/V/D and abd pain, mostly in epigastric area. She feels bloated and distended but no distention on exam. She just had CT scan last week - small amount of fluid in the cul-de-sac. She is currently on her menses and she has no lower abdominal pain. KUB performed with showed nonobstructive bowel gas pattern. she reports multiple episodes of yellow/orange diarrhea. stool studies ordered however she has had no BMs here. no further vomiting since she received zofran. she was given GI cocktail with improvement in her pain. she is tolerating PO. UA c/w possible UTI, will start abx given her c/o dysuria. at this time, no need to repeat CT scan. she is toelrating PO. she is feeling better. she has chronic constipation/diarrhea issues for months. she would like to follow back up with GI for further evaluation. comfortable w/ discharge home and outpatient follow up. return precautions discussed. Differential Diagnosis Differential Diagnoses: The differential diagnosis associated with the presentation includes gastroenteritis, gastritis, GERD, dysentery, UTI, pyelonephritis, , Cdiff Admission/Observation Consideration of admission/observation: Escalation of care including admission/observation considered Lab Data MDM Lab Attestation statement: I reviewed the patient's lab results. no leukocytosis, low bicarb due to GI losses 10/16/23 07:36 10/16/23 07:36 Labs: Lab Results 10/16/23 10/16/23 Range/Units 07:36 10:53 WBC 7.9 (4.8-10.8) X10*3/uL RBC 5.28 (4.20-5.50) X10*6/uL Hgb 14.7 (12.0-16.0) g/dl Hct 41.5 (37.0-47.0) % MCV 78.6 L (80.0-98.0) fL MCH 27.8 (27.0-33.0) pg MCHC 35.4 H (31.0-35.0) g/dl RDW 13.0 (11.0-16.0) % Plt Count 264 (160-400) X10*3/uL MPV 10.7 (9.4-12.3) fL Immature Gran % (Auto) 0.3 (0.0-0.4) % Neut % (Auto) 58.0 (45-73) % Lymph % (Auto) 33.3 (20-40) % [place] % (Auto) 6.3 (2-11) % Eos % (Auto) 1.8 (0-4) % Baso % (Auto) 0.3 (0-2) % Lymph # (Auto) 2.6 (1.2-4.9) X10*3/uL [place] # (Auto) 0.5 (0.1-1.2) X10*3/uL Eos # (Auto) 0.1 (0.0-0.4) X10*3/uL Baso # (Auto) 0.0 (0.0-0.2) X10*3/uL Abs Immat Gran (auto) 0.02 (0.00-0.03) X10*3/uL Absolute Neuts (auto) 4.6 (2.0-8.3) x10*3/uL Absolute Nucleated RBC 0.000 (0.0-0.012) X10*3/uL Nucleated RBC % (auto) 0.0 (0.0-0.2) /100WBC Sodium 140 (135-145) mmol/L Potassium 3.5 (3.3-5.1) mmol/L Chloride 112 H (96-108) mmol/L Carbon Dioxide 16 L (22-29) mmol/L Anion Gap 16 (12-20) BUN 8 L (9-16) mg/dL Creatinine 0.60 (0.5-1.4) mg/dL Estim Creat Clear Calc 119.6 Estimated GFR > 60 Random Glucose 95 (60-115) mg/dL Calcium 9.4 (8.4-10.2) mg/dL Total Bilirubin 0.9 (0.0-1.0) mg/dL AST 23 (5-31) U/L ALT 18 (0-31) U/L Alkaline Phosphatase 67 (39-117) U/L Total Protein 7.3 (6.5-8.0) g/dL Albumin 4.4 (3.5-5.0) g/dL Urine Color Red A Urine Appearance Cloudy Urine pH 5.5 (5.0-9.0) Ur Specific [place] >= 1.030 H (1.005-1.025) Urine Protein 100 (2+) H (Neg-Trace) mg/dL Urine Glucose (UA) Negative (Negative) mg/dL Urine Ketones >=160 (Negative) mg/dL Urine Blood Large (3+) H (Negative) Urine Nitrite Negative (Negative) Ur Leukocyte Esterase Moderate (2+) H (Negative) Urine RBC >20 H (0-2) /HPF Urine WBC 21-50 H (0-5) /HPF Ur Squamous Epith Cells 3-5 (0-2) /HPF Urine Bacteria Trace (None Seen) Hyaline Casts 0-2 (0-2) /LPF Urine Test NEGATIVE (NEGATIVE) Influenza Type A (PCR) NEGATIVE (Negative) Influenza Type B (PCR) NEGATIVE (Negative) RSV RNA Qual (PCR) NEGATIVE (Negative) SARS-CoV-2 RNA (RT-PCR) NEGATIVE (Negative) External Record Review External record reviewed: Office record, Outpatient record, Prior outpatient labs, Prior outpatient radiology and Primary care record Prescription Management I considered prescription management with: Pain Medication and Antibiotic Chronic Conditions Patient?s care impacted by: Other (PCOS) Medications Administered Discontinued Medications Generic Name Dose Route Start Last Admin Trade Name Huong PRN Reason Stop Dose Admin Al Hydroxide/Mg Hydroxide 30 ml 10/16/23 11:41 10/16/23 11:55 Magnesium Hydrox/Alum Hydrox 30 Ml Oral.Susp PO 10/16/23 11:42 30 ml ONCE ONE Administration Belladonna Alkaloids/Phenobarbital 10 ml 10/16/23 11:41 10/16/23 11:55 Phenobarb/Hyoscy/Atropine/Scop 10 Ml Elixir PO 10/16/23 11:42 10 ml ONCE ONE Administration Lactated Ringer's 1,000 mls @ 999 mls/hr 10/16/23 11:00 10/16/23 12:31 Lr IV 10/16/23 12:00 Infused .Q1H1M SHARON Infusion Lidocaine HCl 15 ml 10/16/23 11:41 10/16/23 11:55 Lidocaine Hcl Viscous 2 % 15 Ml Solution MUCOUS MEM 10/16/23 11:42 15 ml ONCE ONE Administration Ondansetron HCl 4 mg 10/16/23 07:15 10/16/23 07:17 Ondansetron Odt 4 Mg Tab.Rapdis TRANSLINGU 10/16/23 07:16 4 mg ONCE ONE Administration Ondansetron HCl 4 mg 10/16/23 11:41 10/16/23 11:55 Ondansetron Hcl 4 Mg/2 Ml Vial IVPUSH 10/16/23 11:42 4 mg ONCE ONE Administration Critical Care Time Critical Care Time Critical Care Time: No Discharge Plan Discharge Clinical Impression: Abdominal pain, Nausea & vomiting, UTI (urinary tract infection) Patient Disposition: Home, Self-Care Instructions: Urinary Tract Infection in Women (DC), Abdominal Pain (ED) Additional Instructions: Your lab workup today was unremarkble Your urine test was positive for infection Take the prescribed antibiotics as directed, complete the entire course and do not miss any doses Drink plenty of water and oral fluids Avoid fast food, greasy food. stick to a bland diet while you are not feeling well Prescriptions: New nitrofurantoin monohyd/m-cryst [Macrobid] 100 mg capsule 100 mg PO Q12H 5 Days Qty: 10 0RF Rx Instructions: must administer with a meal/food ondansetron 4 mg tablet,disintegrating 4 mg PO Q8H PRN (Reason: nausea and vomiting) Qty: 10 0RF No Action clotrimazole 2 % cream 1 appful vaginal BEDTIME 3 Days Qty: 21 0RF ketorolac 10 mg tablet 10 mg PO TID PRN (Reason: pain) 5 Days Qty: 15 0RF ondansetron 4 mg tablet,disintegrating 4 mg PO Q6H PRN (Reason: nausea and vomiting) Qty: 14 0RF doxycycline hyclate 100 mg capsule 100 mg PO BID 14 Days Qty: 28 0RF omeprazole 20 mg capsule,delayed release(DR/EC) 20 mg PO DAILY albuterol sulfate [Ventolin HFA] 90 mcg/actuation HFA aerosol inhaler 2 puff inhalation Q6H PRN (Reason: wheezing) ibuprofen 600 mg tablet 600 mg PO Q6H acetaminophen 500 mg tablet 500 mg PO Q6H PRN (Reason: pain) Premarin 1.25 mg tablet 1.25 mg PO DAILY 21 Days Qty: 21 0RF medroxyprogesterone [Provera] 10 mg tablet 10 mg PO daily 10 Days Qty: 10 0RF Rx Instructions: Start Provera 1 tablet a day the last 10 days of Premarin treatment course metronidazole 500 mg tablet 500 mg PO BID 7 Days Qty: 14 0RF nitrofurantoin monohyd/m-cryst [Macrobid] 100 mg capsule 100 mg PO BID 5 Days Qty: 10 0RF progesterone micronized [Prometrium] 200 mg capsule 200 mg PO BEDTIME 10 Days Qty: 30 0RF Rx Instructions: Take the pill 1 tablet a day cyclically every month from day 15-24 day 1 being the 1st day of next menstrual cycle Referrals: [facility] [Provider Group] Neel Duque MD [Primary Care Provider] - Print Language: Pashto
[2023-10-16 11:05] LABS: UPreg QC Valid YES; Urine Pregnancy NEGATIVE (NEGATIVE)
[2023-10-16] MEDS: Lactated Ringers 1,000 ML 999 ML IV (11:05)
[2023-10-16 11:10] LABS: Appearance Urine Cloudy; Color Urine Red; Glucose Urine UA Negative (Negative); Leukocyte Esterase Urine Moderate (2+) (Negative); Nitrite Urine Negative (Negative); PH 5.5 (5.0-9.0); Specific Gravity - Urine >= 1.030 (1.005-1.025); UMIC TRIGGER UACC YES; Urine Blood Large (3+) (Negative); Urine Ketones >=160 mg/dL (Negative); Urine Protein 100 (2+) mg/dL (Neg-Trace)
--- NOTE | 2023-10-16 11:10 | PC.NURSE ---
a&ox4. vss and up to date aside from being slightly hypotensive. pt presents to ED d/t ongoing lower pelvic/abd pain/n/v/d/dysuria/hematuria/urinary frequency. pt states she was here last week for same sx but sx have increased since then. dark red urine w/ clots obtained from pt and sent to lab. 20gIV placed in the left AC - IVF administered per provider order. pt waiting to go to xray at this time. no sob/wob noted. respirations even and unlabored. family bedside for support. plan of care ongoing. call powell placed within reach.
[2023-10-16 11:14] LABS: Bacteria Urine Trace (None Seen); Hyaline Casts Urine 0-2 /LPF (0-2); RBC Urine >20 /HPF (0-2); UACC Culture Trigger YES; WBC Urine 21-50 /HPF (0-5)
[2023-10-16] MEDS: Lidocaine HCl Viscous 2 % 15 ML SOLUTION MUCOUS MEM (11:55)
[2023-10-16] MEDS: ondansetron HCL 4 MG/2 ML VIAL IVPUSH (11:55)
[2023-10-16] MEDS: PHENobarb/Hyoscy/Atropine/Scop 10 ML ELIXIR PO (11:55)
[2023-10-16] MEDS: Magnesium Hydrox/Alum Hydrox 30 ML ORAL.SUSP PO (11:55)
--- NOTE | 2023-10-16 12:29 | PC.NURSE ---
medication administered per provider order. effectiveness pending. pt waiting for results of xray at this time. family bedside. plan of care ongoing. call powell placed within reach.
[2023-10-16 14:56] VITALS: BP 104/53; PULSE 67; RESP 16; TEMP 36.6; O2SAT 100
[2023-10-16 16:52] VITALS: BP 96/58; PULSE 68; RESP 16; TEMP 36.6; O2SAT 98
== END 2023-10-16 16:53 | disposition home or self-care (01) ==
PROVIDERS: Emergency Provider Emergency Medicine; PCP Internal Medicine
DX: R11.2 Nausea with vomiting, unspecified (principal); R10.9 Unspecified abdominal pain; N39.0 Urinary tract infection, site not specified
CPT/HCPCS: 0241U; 36415; 74018; 80053; 81001; 81003; 81025; 85025; 87086; 87147; 96361; 96374; 99284; J2405; J7120

== ENCOUNTER 2023-10-18 14:23 | Outpatient (AMB) | payer OTHER, SELFPAY ==
[2023-10-18 14:28] VITALS: BP 90/68; PULSE 74; O2SAT 98; BMI 22.0
--- NOTE | 2023-10-18 14:28 | MHC.PC.OV ---
Vital Signs 10/18/23 14:28 Height 5 ft 3 in Weight 124 lb 0.8 oz BMI 22.0 BP 90/68 Blood Pressure Location Lt brachial Position Sitting Pulse 74 Pulse Source Pulse Oximeter Pulse Oximetry (%) 98 Oxygen Delivery Method Room Air Intake Visit Reasons: [facility] [place] 10/13 & 10/15 abd pain, vomiting, dehydrated Intake Note: Patient is here to follow-up after a visit the emergency department at [facility] [place] on 10/13 Allergies Seasonal Allergies Allergy (Intermediate, Verified 10/18/23 14:30) Itchy Eyes Tobacco use date assessed: 10/18/23 Dental Screening Dental Screen Date: 02/16/23 HPI [facility] [place] 10/13 & 10/15 abd pain, vomiting, dehydrated HPI Details 23-year-old female with a history of constipation asthma and elevated liver function test seen in December 2022. ER visit in September 2021 for nausea and vomiting and diarrhea has had colonoscopy which was unremarkable. Found to have UTI also treated with nitrofurantoin and ondansetron. Patient also smokes marijuana and advised to hold this as this can cause hyperemesis cannabinoid syndrome PFSH Medical History Anxiety and depression Cough Cough due to LYNN inhibitor Seasonal allergies Low back pain Migraine with aura Asthma Surgical History H/O colonoscopy Family History Paternal Grandmother Breast CA Mother Crohn disease Father Migraine Brother Bipolar 1 disorder Maternal Grandmother Heart disease Maternal Aunt Colon cancer Other Mental health disorder Social History Housing: Apartment Alcohol intake: never Patient Tobacco Use Status: Never used Tobacco e-Cigarette/Vaping Use: Never Used Second Hand Smoke Exposure: No Substance Use Type: Marijuana service: No Current occupational status: employed 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 How often do you have a drink containing alcohol?: Never 2. How many drinks containing alcohol do you have on a typical day when you are drinking?: 1 or 2 (0) 3. How often do you have six or more drinks on one occasion?: Never Total Score: 0 ELVA-7 AMB Questionnaire ELVA-7 Date ELVA - 7 assessed: 10/07/22 Source: Developed by Drs. Reji Yee, Jennifer Majano, Keanu Arce and colleagues, with an educational girma from [employer]. Physical exam (Primary Care) Vital Signs: Last Vital Signs Pulse 74 10/18/23 14:28 BP 90/68 10/18/23 14:28 Pulse Ox 98 10/18/23 14:28 Oxygen Delivery Method Room Air 10/18/23 14:28 BMI result Body Mass Index 22.0 Tobacco/Smoking Status: Tobacco use Status Tobacco use date assessed 10/18/23 10/18/23 14:37 Patient Tobacco Use Status Never used Tobacco 10/18/23 14:37 e-Cigarette/Vaping Use Never Used 10/18/23 14:37 Thrive Assessment: Date of Thrive Assessment Date Thrive assessed 10/07/22 10/18/23 14:37 Const General: alert; No acute distress Eyes Conjunctivae: conjunctivae normal Resp Auscultation: clear to auscultation bilaterally Cardio Rate: regular rate Rhythm: regular rhythm GI Inspection: Yes normal to inspection Extrem General: Yes normal to inspection and No edema Assessment and Plan Assessment & Plan (1) Gastroenteritis: Code(s): K52.9 - Noninfective gastroenteritis and colitis, unspecified Plan: . discussed about hydration nausea medication sent in and bland diet. Discussed with the family my concern about hyperemesis cannabinoid syndrome (2) UTI (urinary tract infection): Code(s): N39.0 - Urinary tract infection, site not specified Plan: Presently on antibiotic on the 2nd day and advised to retest urine in 1 week's time (3) Microcytosis: Code(s): R71.8 - Other abnormality of red blood cells Plan: Blood Work r equested Orders: Orders Complete Blood Count Auto Diff 1 Week R71.8 - Other abnormality of red blood cells Comprehensive Met. Panel 1 Week K52.9 - Noninfective gastroenteritis and colitis, unspecified IRON PROFILE 1 Week R71.8 - Other abnormality of red blood cells UA CC w/rflx Micro + Cult 1 Week N39.0 - Urinary tract infection, site not specified, R30.0 - Dysuria Ferritin 1 Week K52.9 - Noninfective gastroenteritis and colitis, unspecified Vitamin B12 and Folate 1 Week R71.8 - Other abnormality of red blood cells Reticulocyte Count 1 Week R71.8 - Other abnormality of red blood cells Medications: Refilled ondansetron 4 mg PO Q8H PRN 10 tabs 0RF nausea and vomiting R71.8 - Other abnormality of red blood cells Coding Level of Care Code Est Pt Level 4 (74816) Diagnoses Gastroenteritis K52.9 UTI (urinary tract infection) N39.0 Microcytosis R71.8
== END 2023-10-18 15:05 | disposition home or self-care (01) ==
PROVIDERS: PCP Internal Medicine; Visit Provider Internal Medicine
DX: K52.9 Noninfective gastroenteritis and colitis, unspecified (principal); N39.0 Urinary tract infection, site not specified; R71.8 Other abnormality of red blood cells; J45.909 Unspecified asthma, uncomplicated
CPT/HCPCS: 99214

== ENCOUNTER 2023-11-03 09:11 | Outpatient (REF) | payer OTHER, SELFPAY ==
[2023-11-03 09:30] LABS: MANUAL DIFF FLAG NO
[2023-11-03 09:50] LABS: Basophils Percent Auto 0.4 % (0-2); Eosinophils Absolute Auto 0.1 X10*3/uL (0.0-0.4); Hematocrit 41.9 % (37.0-47.0); Hemoglobin 14.7 g/dl (12.0-16.0); Imm Gran Abs Auto 0.02 X10*3/uL (0.00-0.03); Imm Gran Pct Auto 0.3 % (0.0-0.4); Immature Retic Fraction 3.4 % (3.0-15.9); Lymphocytes Absolute Auto 2.1 X10*3/uL (1.2-4.9); Lymphocytes Percent Auto 29.5 % (20-40); Mean Corpuscular HGB Conc 35.1 g/dl (31.0-35.0); Mean Corpuscular Hemoglobin 28.6 pg (27.0-33.0); Mean Corpuscular Volume 81.5 fL (80.0-98.0); Mean Platelet Volume 10.5 fL (9.4-12.3); Monocytes Absolute Auto 0.6 X10*3/uL (0.1-1.2); Monocytes Percent Auto 7.9 % (2-11); Neutrophils Absolute Auto 4.2 x10*3/uL (2.0-8.3); Neutrophils Percent Auto 59.9 % (45-73); Platelet Count 241 X10*3/uL (160-400); Red Blood Count 5.14 X10*6/uL (4.20-5.50); Retic HGB Equivalent 32.5 pg (30.0-35.0); Reticulocyte Percent 1.2 % (0.5-1.8); Reticulocytes Absolute 0.064 X10*6/uL (0.026-0.095)
[2023-11-03 10:38] LABS: Alanine Aminotransferase 15 U/L (0-31); Albumin Level 4.4 g/dL (3.5-5.0); Alkaline Phosphatase 68 U/L (39-117); Anion Gap 14 (12-20); Aspartate Amino Transferase 19 U/L (5-31); Bilirubin Total 0.6 mg/dL (0.0-1.0); Blood Urea Nitrogen 9 mg/dL (9-16); Calcium 9.5 mg/dL (8.4-10.2); Carbon Dioxide 18 mmol/L (22-29); Chloride 109 mmol/L (96-108); Estimated Glomerular Filt Rate > 60; Glucose Random 90 mg/dL (60-115); Iron 91 mcg/dL (30-160); Percent Iron Saturation 35 % (15-50); Potassium 4.3 mmol/L (3.3-5.1); Sodium 137 mmol/L (135-145); Total Iron Binding Capacity 260 mcg/dL (228-428); Total Protein 7.5 g/dL (6.5-8.0); Unsaturated Iron Binding 169 ug/dL
[2023-11-03 10:46] LABS: Appearance Urine Clear; Color Urine Yellow; Glucose Urine UA Negative (Negative); Leukocyte Esterase Urine Negative (Negative); Nitrite Urine Negative (Negative); PH 5.5 (5.0-9.0); Specific Gravity - Urine 1.025 (1.005-1.025); Urine Blood Negative (Negative); Urine Ketones Negative (Negative); Urine Protein Negative (Neg-Trace)
[2023-11-03 10:57] LABS: Ferritin 83 ng/mL (10-122)
[2023-11-03 11:14] LABS: Folate 8.3 ng/mL (> or = 4.0); Vitamin B12 428 pg/mL (200-900)
== END 2023-11-03 09:12 | disposition home or self-care (01) ==
LOC: HO.LAB 09:11
PROVIDERS: PCP Internal Medicine; Visit Provider Internal Medicine
DX: R71.8 Other abnormality of red blood cells (principal); R30.0 Dysuria; N39.0 Urinary tract infection, site not specified; K52.9 Noninfective gastroenteritis and colitis, unspecified
CPT/HCPCS: 36415; 80053; 81003; 82607; 82728; 82746; 83540; 85025; 85045

== ENCOUNTER 2023-11-09 13:00 | Outpatient (AMB) | payer OTHER, SELFPAY ==
[2023-11-09 13:01] VITALS: BP 118/68
--- NOTE | 2023-11-09 13:01 | A.OFFVIS_ITS ---
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 Present Allergies Seasonal Allergies Allergy (Intermediate, Verified 11/09/23 13:04) Itchy Eyes Medication List - Last Reconciled 11/09/23 by Yokasta Leyva CNM acetaminophen 500 mg PO Q6H PRN albuterol sulfate 90 mcg/actuation (Ventolin HFA) 2 puffs inhalation Q6H PRN ibuprofen 600 mg PO Q6H PRN nitrofurantoin monohyd/m-cryst 100 mg (Macrobid) 100 mg PO Q12H 5 days omeprazole 20 mg PO DAILY ondansetron 4 mg PO Q8H PRN Is last menstrual period known: Yes Last menstrual period: 11/08/23 Do you need a note to return to daycare/school/sports/work: No HPI HPI L breast bump/pain: Details: Patient is here because she is feeling discomfort in her left breast this whole past week she has been frustrated with not feeling good for a long time has been working up IBS and she had a colonoscopy in the fall and has a endoscopy coming up this week she is back to a bland diet and she gets hot flashes in his just not feeling good she has been losing weight rather than gaining she last had sex with her partner on October 13 and she says she had. After that she got a period today and it is heavy with some clots. The breast discomfort is that her left breast feels heavy and uncomfortable in the left outer quadrant. She does not report increased caffeine intake recently. [facility] Medical History Anxiety and depression Cough Cough due to LYNN inhibitor Seasonal allergies Low back pain Migraine with aura Asthma Surgical History H/O colonoscopy Family History Paternal Grandmother Breast CA Mother Crohn disease Father Migraine Brother Bipolar 1 disorder Maternal Grandmother Heart disease Maternal Aunt Colon cancer Other Mental health disorder Social History Housing: Apartment Alcohol intake: never Patient Tobacco Use Status: Never used Tobacco e-Cigarette/Vaping Use: Never Used Second Hand Smoke Exposure: No Substance Use Type: Marijuana service: No Current occupational status: employed 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 Current occupational exposures/hazards: No Sexual orientation: Straight/Heterosexual Gender identity: Female Cognitive needs: No Hearing needs: No Vision needs: No Female Reproductive History Menstrual Age of Menarche: 12 Duration of menses: 6-7 days Date of last menstrual period: 11/08/23 control method: none Total pregnancies: 1 Full term: 1 Date of last pap smear: 01/07/21 (negative) History of abnormal pap smear: No Physical Exam Vital Signs: Last Vital Signs BP 118/68 11/09/23 13:01 Chest Chest palpation & inspection: normal inspection of the chest and normal palpation of entire chest wall Breast/axilla inspection: normal inspection of the breasts and normal inspection of the axillae Breast/axilla palpation: normal palpation of the breasts and normal palpation of the axillae Assessment & Plan Assessment & Plan (1) Mastalgia: Comment: No masses or suspicious findings today 11/09/2023. I recommend patient observe her symptoms and if symptoms do not improve after the next menses (her menses are starting today those (then she should return. Code(s): N64.4 - Mastodynia Category: Medical Plan Reviewed her many physical complaints and challenges and the stressors that must be related to the challenges of not feeling well and trying to figure out what is going on the patient is feeling like she got passedt all the bad genes. I reviewed that I do not find any mass or anything to investigate in a another way with her breasts at this time since she is starting her menses today I am hoping that she will start to feel better within a couple of days and that this breast discomfort is related to the usual breast discomfort that many women experience as their menses are approaching. If she still experiences similar symptoms after the next. Then she should call and asked to be seen and then mucus consider whether not mammogram or ultrasound is appropriate but at this time I do not think it is necessary. Coding Level of Care Code Est Pt Level 3 (72950) Diagnoses Mastalgia N64.4
== END 2023-11-09 13:30 | disposition home or self-care (01) ==
PROVIDERS: PCP Internal Medicine; Visit Provider Advanced Practice Midwife
DX: N64.4 Mastodynia (principal)
CPT/HCPCS: 99213

== ENCOUNTER → 2023-11-09 13:00 | Outpatient (BNVA) | payer OTHER, SELFPAY | PROVIDERS: PCP Internal Medicine; Visit Provider Advanced Practice Midwife | DX: N64.4 Mastodynia (principal) | CPT/HCPCS: 99212 ==

== ENCOUNTER 2023-11-14 10:32 | Day surgery (SDC) | payer OTHER, SELFPAY ==
--- NOTE | 2023-11-10 14:44 | P.CONAN_ITS ---
Documented by User: Windy Smith NP 11/10/23 14:44 HPI - Anesthesia Eval Consult details Narrative: 23yo F for Upper Endoscopy PMFSH Active Problems Active Problems: All Active Problems Mastalgia (Acute) Microcytosis (Acute) UTI (urinary tract infection) (Acute) Gastroenteritis (Acute) Bacterial vaginosis (Acute) Hirsutism (Acute) PCOS (polycystic ovarian syndrome) (Acute) Anovulatory amenorrhea (Acute) Amenorrhea (Acute) Well woman exam (Acute) Nausea & vomiting (Acute) control counseling (Acute) Constipation (Acute) Annual physical exam (Acute) Elevated liver function tests (Acute) Acute gastroenteritis (Acute) Diarrhea (Acute) Right hip pain (Acute) Chronic pain of right knee (Acute) Encounter to establish care (Acute) Depo-Provera contraceptive status (Acute) Family planning (Acute) Well woman exam (Acute) Candidal vulvovaginitis (Acute) Pelvic congestion syndrome (Acute) Complex ovarian cyst (Acute) Pelvic pain (Acute) Encounter for control (Acute) Low back pain (Acute) Anxiety and depression (Acute) Cough (Acute) Cough due to LYNN inhibitor (Acute) Seasonal allergies (Acute) Asthma (Acute) Migraine with aura (Acute) Past Medical History Medical History Anxiety and depression Cough Cough due to LYNN inhibitor Seasonal allergies Low back pain Migraine with aura Asthma Family History Family History Paternal Grandmother Breast CA Mother Crohn disease Father Migraine Brother Bipolar 1 disorder Maternal Grandmother Heart disease Maternal Aunt Colon cancer Other Mental health disorder Family history of problems with anesthesia: No Surgical History Surgical History H/O colonoscopy History of Problems with Anesthesia: No Social History Social History Housing: Apartment Alcohol intake: never Patient Tobacco Use Status: Never used Tobacco e-Cigarette/Vaping Use: Never Used Second Hand Smoke Exposure: No Substance Use Type: Marijuana Substance Use Frequency: Daily Are you DNR?: No Advance Directives: No Advance Directives Information Provided: Yes Nutrition Risks: No Nutritional Risk FDLMP: last week service: No Current occupational status: employed 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 Current occupational exposures/hazards: No Sexual orientation: Straight/Heterosexual Gender identity: Female Cognitive needs: No Hearing needs: No Vision needs: No Meds Allergies Allergy/AdvReac Type Severity Reaction Status Date / Time Seasonal Allergies Allergy Intermediate Itchy Eyes Verified 11/14/23 11:43 Home Medications ?Medication ?Instructions ?Recorded ?Confirmed ?Last Taken ?Type acetaminophen 500 mg tablet 500 mg PO Q6H PRN pain 04/04/23 11/13/23 Unknown History albuterol sulfate 90 mcg/actuation 2 puff inhalation Q6H PRN wheezing 04/04/23 11/13/23 Unknown History aerosol inhaler (Ventolin HFA) ibuprofen 600 mg tablet 600 mg PO Q6H PRN Pain 10/18/23 11/13/23 Unknown History ketorolac 10 mg tablet 10 mg PO 11/13/23 Unknown History Assessment and Plan Assessment Anesthesia Assessment: Chart Reviewed Final Anesthetic Review Family History of Problems with Anesthesia: No History of Problems with Anesthesia: No Documented by User: Taisha Franco MD 11/14/23 11:46 PMFSH Past Medical History Medical History Anxiety and depression Cough Cough due to LYNN inhibitor Seasonal allergies Low back pain Migraine with aura Asthma Family History Family History Paternal Grandmother Breast CA Mother Crohn disease Father Migraine Brother Bipolar 1 disorder Maternal Grandmother Heart disease Maternal Aunt Colon cancer Other Mental health disorder Surgical History Surgical History H/O colonoscopy Social History Social History Housing: Apartment Alcohol intake: never Patient Tobacco Use Status: Never used Tobacco e-Cigarette/Vaping Use: Never Used Second Hand Smoke Exposure: No Substance Use Type: Marijuana Substance Use Frequency: Daily Are you DNR?: No Advance Directives: No Advance Directives Information Provided: Yes Nutrition Risks: No Nutritional Risk FDLMP: last week service: No Current occupational status: employed 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 Current occupational exposures/hazards: No Sexual orientation: Straight/Heterosexual Gender identity: Female Cognitive needs: No Hearing needs: No Vision needs: No Meds Allergies Allergy/AdvReac Type Severity Reaction Status Date / Time Seasonal Allergies Allergy Intermediate Itchy Eyes Verified 11/14/23 11:43 Home Medications ?Medication ?Instructions ?Recorded ?Confirmed ?Last Taken ?Type acetaminophen 500 mg tablet 500 mg PO Q6H PRN pain 04/04/23 11/13/23 Unknown History albuterol sulfate 90 mcg/actuation 2 puff inhalation Q6H PRN wheezing 04/04/23 11/13/23 Unknown History aerosol inhaler (Ventolin HFA) ibuprofen 600 mg tablet 600 mg PO Q6H PRN Pain 10/18/23 11/13/23 Unknown History ketorolac 10 mg tablet 10 mg PO 11/13/23 Unknown History Exam Airway Mallampati Class: II TM Dist: >3cm Neck ROM: Full Loose/Missing/Broken Teeth: No Heart: RRR Lungs: CTA Assessment and Plan Assessment Anesthesia Assessment: Anesthesia Plan Discussed Final Anesthetic Review NPO: Yes ASA Class: II Final Preanesthetic Review: Meds/Allgs Chart Reviewed, Consent Obtained/Reviewed and Anes Risks/Benef Reviewed Patient Risk: Low Procedure Risk: Intermediate Anesthetic Plan Anesthetic Plan: MAC: Disposition: Standard PACU
[2023-11-13 06:59] VITALS: BMI 22.3
[2023-11-14 10:44] VITALS: BMI 22.3
[2023-11-14 10:50] LABS: UPreg QC Valid YES; Urine Pregnancy NEGATIVE (NEGATIVE)
[2023-11-14] MEDS: Lactated Ringers 1,000 ML 100 ML IVCONT (10:50)
[2023-11-14 10:56] VITALS: BP 106/55; PULSE 72; RESP 18; TEMP 36.8; O2SAT 100
--- NOTE | 2023-11-14 11:44 | MHC.SHP ---
Pre-Procedural Eval Section A - 24 Hr Update-Section A only Date of Service: 11/14/23 The patient is an INPATIENT: No Changes since office visit: No Cold of Flu in the past 2 weeks, No New Medical Problems, No Changes in Medication and No Patient answered all questions The patient has been examined within 24 hours of the surgical procedure. The History & Physical has been completed within 30 days and I have reviewed it.: Yes Section B - Complete if H&P > 30 days Chief Complaint: Epigastric pain Allergies: Allergies Allergy/AdvReac Type Severity Reaction Status Date / Time Seasonal Allergies Allergy Intermediate Itchy Eyes Verified 11/14/23 11:43 Plan I have reviewed the history and physical and performed a pertinent physical examination on my patient. No changes have occurred unless specified. Time Spent With Patient Time: Total time managing care of this patient today ____ minutes.
[2023-11-14 12:06] VITALS: BP 103/55; PULSE 87; RESP 18; TEMP 36.8; O2SAT 99
[2023-11-14 12:18] VITALS: BP 110/64; PULSE 75; RESP 16; TEMP 37.1; O2SAT 99
--- NOTE | 2023-11-14 12:59 | OP_ITS ---
DATE OF SERVICE: 11/14/2023 SURGEON: Paul Lu MD INDICATIONS: Epigastric pain. PREOPERATIVE DIAGNOSIS: POSTOPERATIVE DIAGNOSIS: PROCEDURE PERFORMED: Upper endoscopy with biopsy. ESTIMATED BLOOD LOSS: COMPLICATIONS: ANESTHESIA: Monitored anesthesia care. ASSISTANTS: SPECIMENS: DESCRIPTION OF PROCEDURE: A history and physical was performed. The risks and benefits of the procedure were explained to the patient and informed consent was obtained. The patient was placed in the left lateral decubitus position. The Olympus video gastroscope was introduced into the esophagus, stomach, and duodenum. Examination was performed and the scope was removed. She tolerated the procedure well and was returned to recovery area in stable condition. FINDINGS: Esophagus: The esophagus was normal. There was no esophagitis. Stomach: The stomach showed no evidence of masses, ulcers, or polyps. Duodenum: The bulb and 2nd portion were normal. Biopsies were obtained from the EG junction, antrum, and 2nd portion. IMPRESSION: Normal upper endoscopy. RECOMMENDATION: Follow up the biopsy results. MD LYNSEY Bauer/MODL / [id number]
== END 2023-11-14 12:44 | disposition home or self-care (01) ==
PROVIDERS: Nurse Practitioner; PCP Internal Medicine; Visit Provider Internal Medicine Gastroenterology
PROC: 0DJ08ZZ Inspection of Upper Intestinal Tract, Via Natural or Artificial Opening Endoscopic (ICD-10-PCS; CPT 43235; principal; 2023-11-14 12:30)
DX: R10.13 Epigastric pain (principal); J45.909 Unspecified asthma, uncomplicated
CPT/HCPCS: 43239; 81025; 88305; 88313; 88342; J2704

== ENCOUNTER 2023-11-27 10:04 | Outpatient (AMB) | payer OTHER, SELFPAY ==
[2023-11-27 10:05] VITALS: BP 112/64; PULSE 65; O2SAT 99; BMI 22.1
--- NOTE | 2023-11-27 10:05 | MHC.PC.OV ---
Vital Signs 11/27/23 10:05 Height 5 ft 3 in Weight 125 lb BMI 22.1 BP 112/64 Blood Pressure Location Lt brachial Position Sitting Pulse 65 Pulse Source Pulse Oximeter Pulse Oximetry (%) 99 Oxygen Delivery Method Room Air Intake Visit Reasons: Annual Exam [employer] Required: No Allergies Seasonal Allergies Allergy (Intermediate, Verified 11/27/23 10:06) Itchy Eyes Medication List - Last Reconciled 11/27/23 by Neel Duque MD acetaminophen 500 mg PO Q6H PRN albuterol sulfate 90 mcg/actuation (Ventolin HFA) 2 puffs inhalation Q6H PRN dicyclomine 10 mg PO Q6H PRN ibuprofen 600 mg PO Q6H PRN ondansetron 4 mg PO Q8H PRN Tobacco use date assessed: 11/27/23 Dental Screening Dental Screen Date: 11/27/23 Did you have a dental visit in the last 12 months?: Yes Did you have a dental problem in the last 6 months where you did not have access to dental care?: No Was dental information given to patient?: Patient has dentist HPI Annual Exam HPI Details 23-year-old female with a history of migraine, asthma generalized anxiety disorder coming in for physical exam last seen 10/14/2023 having gastroenteritis. Review of the notes in 11/14/2023 had an EGD done biopsy showing chronic inactive inflammation negative for H pylori and dysplasia GE junction moderate chronic inflammation. LMP October mid month, [employer] october 14 5 days . has episoded of hot flashes, occ naueas. diarrhea, PFSH Medical History Anxiety and depression Cough Cough due to LYNN inhibitor Seasonal allergies Low back pain Migraine with aura Asthma Surgical History H/O colonoscopy Family History Paternal Grandmother Breast CA Mother Crohn disease Father Migraine Brother Bipolar 1 disorder Maternal Grandmother Heart disease Maternal Aunt Colon cancer Other Mental health disorder Social History Housing: Apartment Alcohol intake: never Patient Tobacco Use Status: Never used Tobacco e-Cigarette/Vaping Use: Never Used Second Hand Smoke Exposure: No Substance Use Type: Marijuana service: No Current occupational status: employed 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 1. Little interest or pleasure in doing things: not at all 2. Feeling down, depressed, or hopeless: not at all 3. Trouble falling or staying asleep, or sleeping too much: not at all 4. Feeling tired or having little energy: not at all 5. Poor appetite or overeating: not at all 6. Feeling bad about yourself - or that you are a failure or have let yourself or your family down: not at all 7. Trouble concentrating on things, such as reading the newspaper or watching television: not at all 8. Moving or speaking so slowly that other people could have noticed. Or the opposite - being so fidgety or restless that you have been moving around a lot more than usual: not at all 9. Thoughts that you would be better off or of hurting yourself in some way: not at all Total score: 0 Depression Screening Interpretation: Positive (patient stated she is DX with depression and anxiety and is seeing a therapist ) Depression Screening Follow-up: Existing condition and In treatment Depression Screening Done: Yes 20185 - PHQ-9 Billing: Yes Source: Developed by Drs. Reji Yee, Jennifer Majano, Keanu Arce and colleagues, with an educational girma from [employer]. Thrive Questionnaire Date Thrive assessed: 11/27/23 I am a: Patient What is your living situation today?: I have a steady place to live Within the past 12 months, did the food you bought not last and you didn't have the money to get more?: Never true Within the past 12 months, did you worry whether your food would run out before you got money to buy more?: Never true Do you have trouble paying for medicines?: No Do you have trouble getting transportation to medical appointments?: No Do you have trouble paying your heating and electricity bill?: No Do you have trouble taking care of your child, family member or friend?: No Do you have trouble with day-to-day activities such as bathing, preparing meals, shopping, managing finances, etc.?: No Are you currently unemployed and looking for a job?: No Are you interested in more education?: No Please select the resources that you would like help with: None Currently or been in a relationship where the following occur: no concerns reported THRIVE Score: 0 AUDIT C Alcohol Use Questionnaire (AUDIT-C) 1. How often do you have a drink containing alcohol?: Never 2. How many drinks containing alcohol do you have on a typical day when you are drinking?: 1 or 2 (0) 3. How often do you have six or more drinks on one occasion?: Never Total Score: 0 ELVA-7 AMB Questionnaire ELVA-7 Date ELVA - 7 assessed: 11/27/23 Feeling nervous, anxious, or on edge: 0 = Not at all Not being able to stop or control worryin = Not at all Worrying too much about different things: 0 = Not at all Trouble relaxin = Not at all Being so restless that it is hard to sit still: 0 = Not at all Becoming easily annoyed or irritable: 0 = Not at all Feeling afraid as if something awful might happen: 0 = Not at all Total ELVA-7 score (0-4 normal; 5-9 mild; 10-14 moderate; 15-21 severe): 0 Source: Developed by Drs. Reji Yee, Jennifer Majano, Keanu Arce and colleagues, with an educational girma from [employer]. ELVA-7 Assessment Billing ELVA-7 Assessment Tool: ELVA-7 Assessment 22487 Review of Systems Const Denies poor appetite and Denies weakness Eyes Denies no additional complaints ENT Reports Normal hearing present, Denies dizziness, Denies nasal congestion, Denies tinnitus and Denies sore throat Card Denies chest pain, Denies syncope, Denies rapid heart rate and Denies dyspnea Resp Denies cough and Denies dyspnea GI Denies change in stool character, Reports constipation, Denies diarrhea, Denies nausea and Denies vomiting Denies urinary frequency, Denies difficulty voiding and Denies dysuria Neuro Reports Normal hearing present, Denies confusion, Denies dizziness, Denies syncope and Denies weakness Psych Denies confusion Physical exam (Primary Care) Vital Signs: Last Vital Signs Pulse 65 11/27/23 10:05 BP 112/64 11/27/23 10:05 Pulse Ox 99 11/27/23 10:05 Oxygen Delivery Method Room Air 11/27/23 10:05 BMI result Body Mass Index 22.1 Tobacco/Smoking Status: Tobacco use Status Tobacco use date assessed 11/27/23 11/27/23 10:07 Patient Tobacco Use Status Never used Tobacco 11/27/23 10:07 e-Cigarette/Vaping Use Never Used 11/27/23 10:07 PHQ-9: PHQ-9 Score PHQ-9: Total score 0 11/27/23 10:24 Depression Screening Interpretation: Positive (patient stated she is DX with depression and anxiety and is seeing a therapist ) Depression Screening Follow-up: Existing condition and In treatment Thrive Assessment: Date of Thrive Assessment Date Thrive assessed 11/27/23 11/27/23 10:07 Currently or been in a relationship where the following occur: no concerns reported Const General: No confusion Orientation/consciousness: No confusion HENMT Head: Yes normocephalic Ears: external ears normal and TM's normal bilaterally Face and sinus: Yes normal facial exam Mouth: moist mucous membranes Throat: Yes tonsils normal Eyes Conjunctivae: conjunctivae normal Pupils: Equal, round and reactive pupils present and Pupil accommodation reflex normal Direct Ophthalmoscopy: normal light reflex Neck Neck: No lymphadenopathy Thyroid: Thyroid normal Chest Chest palpation & inspection: normal inspection of the chest Resp Effort & Inspection: normal respiratory effort and no audible wheezes Auscultation: clear to auscultation bilaterally, no crackles, no wheezes and lung sounds not diminished Cardio Rate: regular rate Rhythm: regular rhythm Peripheral pulses: radial pulses present and dorsalis pedis present GI Palpation (GI): no masses Auscultation: normal bowel sounds and normoactive bowel sounds Rectal Exam - Female: deferred Skin General skin exam: no rashes or lesions noted Rashes: no rashes Neuro General: No confusion Cranial nerves: Yes Equal, round and reactive pupils present and Yes Normal hearing present Cognition (Neuro): normal cognition Gait exam (Neuro): Normal gait present Motor exam (neuro): 5/5 motor strength present throughout Deep tendon reflexes (DTR's): Right brachioradialis reflex intensity grade: 2+, Left brachioradialis reflex intensity grade: 2+, Right patellar reflex intensity grade: 2+ and Left patellar reflex intensity grade: 2+ Extrem General: No edema Assessment and Plan Assessment & Plan (1) Annual physical exam: Code(s): Z00.00 - Encounter for general adult medical examination without abnormal findings (2) Mastalgia: Comment: No masses or suspicious findings today 11/09/2023. I recommend patient observe her symptoms and if symptoms do not improve after the next menses (her menses are starting today those (then she should return. Code(s): N64.4 - Mastodynia Plan: Patient was seen by OB Gynecology Department negative (3) Asthma: Code(s): J45.909 - Unspecified asthma, uncomplicated Plan: Continue with the inhaler as needed (4) Dyspepsia: Code(s): R10.13 - Epigastric pain Plan: Avoid the foods that causes that usually spicy foods, tomato products, juices, coffee, soda and foods that your sensitive to. After eating do not lie down, allow 3-4 hours before in lie down. And keep the head of bed above 30 degrees to avoid the acid from going up. (5) UTI (urinary tract infection): Code(s): N39.0 - Urinary tract infection, site not specified Plan: Patient was treated and will do a urinalysis Orders: Orders AMB Urinalysis Automated Today N39.0 - Urinary tract infection, site not specified, Z13.9 - Encounter for screening, unspecified Coding Level of Care Code Est Pt Prev Care [id number]([id number]) Diagnoses Annual physical exam Z00.00 Mastalgia N64.4 Asthma J45.909 Dyspepsia R10.13 UTI (urinary tract infection) N39.0 Additional Codes ELVA-7 Assessment Billing - ELVA-7 Assessment Tool: ELVA-7 Assessment [id number] ([id number])
== END 2023-11-27 11:07 | disposition home or self-care (01) ==
PROVIDERS: Visit Provider Internal Medicine
DX: Z00.00 Encounter for general adult medical examination without abnormal findings (principal); N64.4 Mastodynia; J45.909 Unspecified asthma, uncomplicated; R10.13 Epigastric pain; N39.0 Urinary tract infection, site not specified
CPT/HCPCS: 81003; 99395

== ENCOUNTER 2023-12-31 09:24 | Emergency (ER) | payer OTHER, SELFPAY ==
--- NOTE | ~2023-12-31 | US_ITS ---
EXAMINATION: US OBSTETRICAL ULTRASOUND CLINICAL INFORMATION: Abdominal pain COMPARISON: Pelvic ultrasound 04/07/2017 LMP: 12/05/2023. Gestational age by maternal dates is 3 weeks and 5 days. Estimated date of delivery by maternal dates is 08/31/2024. TECHNIQUE: Ultrasound of the maternal pelvis is performed using transabdominal and transvaginal transducers. Transvaginal imaging is performed due to inadequate visualization transabdominally. M-mode Doppler is also performed. FINDINGS: There is no intrauterine gestational sac identified. Uterus is anteverted in position. The endometrium measures 0.7 cm in thickness. MATERNAL ADNEXA: The right maternal ovary measures 3.9 x 1.2 x 1.9 cm. There is a 2.5 x 1.4 x 1.8 cm solid mass in the right adnexa suspicious for tubal ectopic . The left maternal ovary measures 1.3 x 2.4 x 2.9 cm. A 2.1 cm hemorrhagic left ovarian cyst. There is small volume of complex free fluid suggestive of blood products. US/US OB pelvic and transvaginal IMPRESSION: A 2.5 cm solid mass in the right adnexa suspicious for a tubal ectopic with small volume of complex free fluid in the pelvis suggesting blood products and ectopic rupture. The findings and recommendations were discussed with GWENDOLYN Reyes by telephone at 12/31/2023 12:38 PM and it was ascertained that the content and urgency of the report was understood at the time of direct communication.
[2023-12-31 09:33] VITALS: BP 109/53; PULSE 80; RESP 18; TEMP 37; O2SAT 99; BMI 21.8
[2023-12-31 09:55] LABS: MANUAL DIFF FLAG NO
[2023-12-31 09:58] LABS: Appearance Urine Turbid; Basophils Percent Auto 0.3 % (0-2); Color Urine Yellow; Eosinophils Absolute Auto 0.1 X10*3/uL (0.0-0.4); Eosinophils Percent Auto 0.6 % (0-4); Glucose Urine UA Negative (Negative); Hematocrit 39.7 % (37.0-47.0); Hemoglobin 14.1 g/dl (12.0-16.0); Imm Gran Abs Auto 0.04 X10*3/uL (0.00-0.03); Imm Gran Pct Auto 0.4 % (0.0-0.4); Leukocyte Esterase Urine Negative (Negative); Lymphocytes Absolute Auto 1.7 X10*3/uL (1.2-4.9); Lymphocytes Percent Auto 19.2 % (20-40); Mean Corpuscular HGB Conc 35.5 g/dl (31.0-35.0); Mean Corpuscular Hemoglobin 28.4 pg (27.0-33.0); Mean Corpuscular Volume 79.9 fL (80.0-98.0); Mean Platelet Volume 10.6 fL (9.4-12.3); Monocytes Absolute Auto 0.4 X10*3/uL (0.1-1.2); Monocytes Percent Auto 4.2 % (2-11); Neutrophils Absolute Auto 6.7 x10*3/uL (2.0-8.3); Neutrophils Percent Auto 75.3 % (45-73); Nitrite Urine Negative (Negative); PH 8.5 (5.0-9.0); Platelet Count 236 X10*3/uL (160-400); Red Blood Count 4.97 X10*6/uL (4.20-5.50); Red Cell Distribution Width 12.9 % (11.0-16.0); Urine Blood Negative (Negative); Urine Ketones 40 mg/dL (Negative); Urine Protein Negative (Neg-Trace)
[2023-12-31 09:59] LABS: UPreg QC Valid YES; Urine Pregnancy POSITIVE (NEGATIVE)
[2023-12-31 10:15] LABS: Alanine Aminotransferase 14 U/L (0-31); Albumin Level 4.5 g/dL (3.5-5.0); Alkaline Phosphatase 60 U/L (39-117); Anion Gap 12 (12-20); Aspartate Amino Transferase 17 U/L (5-31); Bilirubin Direct 0.2 mg/dL (0.0-0.5); Bilirubin Total 0.4 mg/dL (0.0-1.0); Blood Urea Nitrogen 10 mg/dL (9-16); Calcium 9.4 mg/dL (8.4-10.2); Carbon Dioxide 21 mmol/L (22-29); Chloride 110 mmol/L (96-108); Creatinine Clr Calc Pharmacy 105.5; Estimated Glomerular Filt Rate > 60; Glucose Random 114 mg/dL (60-115); Lipase 18 U/L (8-78); Potassium 3.7 mmol/L (3.3-5.1); Sodium 139 mmol/L (135-145); Total Protein 7.3 g/dL (6.5-8.0)
[2023-12-31 10:48] LABS: HCG Quantitative 331 mIU/mL
[2023-12-31] MEDS: Lactated Ringers 1,000 ML 999 ML IV ×2 (11:30→12:36)
[2023-12-31] MEDS: ondansetron HCL 4 MG/2 ML VIAL IVPUSH (11:30)
[2023-12-31 11:35] LABS: INTERNATIONAL NORM RATIO 1.2 (0.9-1.1)
--- NOTE | 2023-12-31 11:35 | ED.GENADULT ---
HPI - General Adult General Chief complaint: Abdominal Pain Stated complaint: abd pain, vomitting Time Seen by Provider: 12/31/23 10:07 Source: patient Mode of arrival: ambulatory Limitations: no limitations History of Present Illness ED Provider: Remington COY HPI narrative: 23 yold female with pmh of IBS, PCOS, and asthma presents to the ED for abdominal pain, vomiting, and diarrhea for 1 week. patient states symptoms might be due to IBS. Patient states no fever, chills, bloody stool, dysuria, hematuria, or flank pain. Patient had her menstruation last month. patient states now stating more lower abdominal cramping. Related Data Home Medications ?Medication ?Instructions ?Recorded ?Confirmed acetaminophen 500 mg tablet 500 mg PO Q6H PRN pain 04/04/23 11/27/23 albuterol sulfate 90 mcg/actuation 2 puff inhalation Q6H PRN wheezing 04/04/23 11/27/23 aerosol inhaler (Ventolin HFA) ibuprofen 600 mg tablet 600 mg PO Q6H PRN Pain 10/18/23 11/27/23 dicyclomine 10 mg capsule 10 mg PO Q6H PRN 11/27/23 11/27/23 Previous Rx's ?Medication ?Instructions ?Recorded ondansetron 4 mg disintegrating 4 mg PO Q8H PRN nausea and 11/27/23 tablet vomiting #10 tabs Allergies Allergy/AdvReac Type Severity Reaction Status Date / Time Seasonal Allergies Allergy Intermediate Itchy Eyes Verified 12/31/23 09:36 Review of Systems Review of Systems: Abdominal pain, abdominal cramping, nausea, vomiting, Yes all other systems are reviewed and are negative [facility] Past Medical History Medical History Anxiety and depression Cough Cough due to LYNN inhibitor Seasonal allergies Low back pain Migraine with aura Asthma Surgical History H/O colonoscopy Family History Family History Paternal Grandmother Breast CA Mother Crohn disease Father Migraine Brother Bipolar 1 disorder Maternal Grandmother Heart disease Maternal Aunt Colon cancer Other Mental health disorder Social History Social History Housing: Apartment Alcohol intake: never Patient Tobacco Use Status: Never used Tobacco Smoked in Last 30 Days: No e-Cigarette/Vaping Use: Never Used Second Hand Smoke Exposure: No Use of substances other than those prescribed or required for medical reasons: Yes Substance Use Type: Marijuana Substance Use Frequency: Daily Advance Directives: No Advance Directives Information Provided: No Do you have a plan to hurt others: No Plan Patient : Yes service: No Current occupational status: employed 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 Current occupational exposures/hazards: No Sexual orientation: Straight/Heterosexual Gender identity: Female Cognitive needs: No Hearing needs: No Vision needs: No Physical Exam ED Vital Signs: Vital Signs - 24 hr 12/31/23 09:33 12/31/23 11:54 12/31/23 13:12 Temperature 98.6 F 98.4 F Pulse Rate 80 77 72 Respiratory Rate 18 16 18 Blood Pressure 109/53 L 108/62 113/68 Pulse Oximetry 99 98 Oxygen Delivery Method Room Air Room Air 12/31/23 14:02 Temperature 97.8 F Pulse Rate 72 Respiratory Rate 18 Blood Pressure 113/68 Pulse Oximetry 97 Oxygen Delivery Method Room Air BMI result Body Mass Index 21.8 Const General: cooperative, healthy appearing, comfortable, no acute distress, well developed, alert and awake Orientation/consciousness: patient oriented x3 HENMT Head: Yes normal to inspection, Yes No palpable skull fracture present, Yes normocephalic, Yes atraumatic and No abrasion Eyes General: appearance normal, both eyes and all related structures Neck Neck: Yes normal visual inspection, Yes full ROM, Yes no lymphadenopathy, Yes no meningeal signs, Yes trachea midline, Yes supple, No anterior neck swelling and No tender Chest Chest palpation & inspection: normal inspection of the chest and normal palpation of entire chest wall Resp Effort & Inspection: normal respiratory effort and able to speak in complete sentences Auscultation: clear to auscultation bilaterally Cardio Jugular venous distension: no JVD Heart sounds: S1 normal heart sound present and S2 normal heart sound present GI Inspection: Yes normal to inspection Palpation (GI): Soft to palpation, not firm, Tenderness to palpation present (GI) in the LLQ and in the RLQ, no guarding and not rigid Other: Negative any active bleeding. Cervical os is closed. Positive for right adnexal tenderness on palpation. General: Yes no CVA tenderness External Female Exam: normal external appearance Speculum Exam - Vagina: normal appearance of the vagina Speculum Exam - Cervix: normal appearance of the cervix Bimanual exam- vagina & uterus: normal bimanual exam Bimanual Exam- Adnexa, other: tender on the right Back/Spine/Pelvis Back: no CVA tenderness and No back tenderness Skin General skin exam: no rashes or lesions noted, elasticity normal and turgor normal Neuro General: patient oriented x3, gait normal, tone normal, moves all extremities, Normal light touch and pain sensation, no meningeal signs, no focal motor deficits, CN's II-XI intact bilaterally and normal sensation to monofilament Extrem General: Yes normal to inspection, Yes full ROM and Yes capillary refill normal Psych Appearance: grossly normal, well kempt and not disheveled Medications Administered Discontinued Medications Generic Name Dose Route Start Last Admin Trade Name Freq PRN Reason Stop Dose Admin Lactated Ringer's 1,000 mls @ 999 mls/hr 12/31/23 10:26 12/31/23 12:36 Lr IV 12/31/23 11:26 Infused .Q1H1M STA Infusion Lactated Ringer's 1,000 mls @ 999 mls/hr 12/31/23 12:28 12/31/23 13:44 Lr IV 12/31/23 13:28 Infused .Q1H1M STA Infusion Ondansetron HCl 4 mg 12/31/23 10:24 12/31/23 11:30 Ondansetron Hcl 4 Mg/2 Ml Vial IVPUSH 12/31/23 10:25 4 mg ONCE ONE Administration Medical Decision Making Medical Decision Making MDM Narrative: 23-year-old female presents to ED for abdominal cramping pain and vomiting for 1 week. Patient found to be . Will get ultrasound to rule out ectopic . Will add HCG to check levels. Patient has ketones 40 will give lactate Ringer's and Zofran. 12:00pm: Spoke with lab who states no need to add Rh ABO type since patient already had type and screen and patient is O positive mean she is Rh positive. 12:41pm: radiologist called and states patient has right-sided ectopic . Patient's vital signs are stable. We will contact [facility] and perform pelvic exam. patient received 2 L of lactated ringer in total. 1:16pm: spoke with Dr. Damaris Tucker [facility] OBGYN fellow and she was informed of patient's history, physical exam and diagnostic reading. She accepted the case. Patient to be transferred to [facility]. she states if patient has pain patient could be given morphine. Patient does not want any pain medication does not want morphine. Differential Diagnosis Differential Diagnoses: The differential diagnosis associated with the presentation includes ( Ectopic , threatened , hyperemesis .) Admission/Observation Consideration of admission/observation: Escalation of care including admission/observation considered Consult Healthcare Provider Management of the patient was discussed with: Container Filler (Dr. Lalo CRISOSTOMO) Lab Data MDM Lab Attestation statement: I reviewed the patient's lab results. 12/31/23 09:46 12/31/23 09:46 Labs: Lab Results 12/31/23 12/31/23 12/31/23 Range/Units 09:46 11:22 11:31 WBC 9.0 (4.8-10.8) X10*3/uL RBC 4.97 (4.20-5.50) X10*6/uL Hgb 14.1 (12.0-16.0) g/dl Hct 39.7 (37.0-47.0) % MCV 79.9 L (80.0-98.0) fL MCH 28.4 (27.0-33.0) pg MCHC 35.5 H (31.0-35.0) g/dl RDW 12.9 (11.0-16.0) % Plt Count 236 (160-400) X10*3/uL MPV 10.6 (9.4-12.3) fL Immature Gran % (Auto) 0.4 (0.0-0.4) % Neut % (Auto) 75.3 H (45-73) % Lymph % (Auto) 19.2 L (20-40) % [place] % (Auto) 4.2 (2-11) % Eos % (Auto) 0.6 (0-4) % Baso % (Auto) 0.3 (0-2) % Lymph # (Auto) 1.7 (1.2-4.9) X10*3/uL [place] # (Auto) 0.4 (0.1-1.2) X10*3/uL Eos # (Auto) 0.1 (0.0-0.4) X10*3/uL Baso # (Auto) 0.0 (0.0-0.2) X10*3/uL Abs Immat Gran (auto) 0.04 H (0.00-0.03) X10*3/uL Absolute Neuts (auto) 6.7 (2.0-8.3) x10*3/uL Absolute Nucleated RBC 0.000 (0.0-0.012) X10*3/uL Nucleated RBC % (auto) 0.0 (0.0-0.2) /100WBC PT 14.0 H (11.1-13.3) SEC INR 1.2 H (0.9-1.1) APTT 35.4 (26.0-36.8) SEC Sodium 139 (135-145) mmol/L Potassium 3.7 (3.3-5.1) mmol/L Chloride 110 H (96-108) mmol/L Carbon Dioxide 21 L (22-29) mmol/L Anion Gap 12 (12-20) BUN 10 (9-16) mg/dL Creatinine 0.68 (0.5-1.4) mg/dL Estim Creat Clear Calc 105.5 Estimated GFR > 60 Random Glucose 114 (60-115) mg/dL Calcium 9.4 (8.4-10.2) mg/dL Total Bilirubin 0.4 (0.0-1.0) mg/dL Direct Bilirubin 0.2 (0.0-0.5) mg/dL AST 17 (5-31) U/L ALT 14 (0-31) U/L Alkaline Phosphatase 60 (39-117) U/L Total Protein 7.3 (6.5-8.0) g/dL Albumin 4.5 (3.5-5.0) g/dL Lipase 18 (8-78) U/L Beta HCG, Quant 331 mIU/mL Urine Color Yellow Urine Appearance Turbid Urine pH 8.5 (5.0-9.0) Ur Specific [place] 1.020 (1.005-1.025) Urine Protein Negative (Neg-Trace) mg/dL Urine Glucose (UA) Negative (Negative) mg/dL Urine Ketones 40 (Negative) mg/dL Urine Blood Negative (Negative) Urine Nitrite Negative (Negative) Ur Leukocyte Esterase Negative (Negative) Urine Test POSITIVE H (NEGATIVE) COVID-19 (BELEM) (Negative) COVID-19 Clin Com Blood Type O Positive Antibody Screen NEGATIVE 12/31/23 Range/Units 13:10 WBC (4.8-10.8) X10*3/uL RBC (4.20-5.50) X10*6/uL Hgb (12.0-16.0) g/dl Hct (37.0-47.0) % MCV (80.0-98.0) fL MCH (27.0-33.0) pg MCHC (31.0-35.0) g/dl RDW (11.0-16.0) % Plt Count (160-400) X10*3/uL MPV (9.4-12.3) fL Immature Gran % (Auto) (0.0-0.4) % Neut % (Auto) (45-73) % Lymph % (Auto) (20-40) % [place] % (Auto) (2-11) % Eos % (Auto) (0-4) % Baso % (Auto) (0-2) % Lymph # (Auto) (1.2-4.9) X10*3/uL [place] # (Auto) (0.1-1.2) X10*3/uL Eos # (Auto) (0.0-0.4) X10*3/uL Baso # (Auto) (0.0-0.2) X10*3/uL Abs Immat Gran (auto) (0.00-0.03) X10*3/uL Absolute Neuts (auto) (2.0-8.3) x10*3/uL Absolute Nucleated RBC (0.0-0.012) X10*3/uL Nucleated RBC % (auto) (0.0-0.2) /100WBC PT (11.1-13.3) SEC INR (0.9-1.1) APTT (26.0-36.8) SEC Sodium (135-145) mmol/L Potassium (3.3-5.1) mmol/L Chloride (96-108) mmol/L Carbon Dioxide (22-29) mmol/L Anion Gap (12-20) BUN (9-16) mg/dL Creatinine (0.5-1.4) mg/dL Estim Creat Clear Calc Estimated GFR Random Glucose (60-115) mg/dL Calcium (8.4-10.2) mg/dL Total Bilirubin (0.0-1.0) mg/dL Direct Bilirubin (0.0-0.5) mg/dL AST (5-31) U/L ALT (0-31) U/L Alkaline Phosphatase (39-117) U/L Total Protein (6.5-8.0) g/dL Albumin (3.5-5.0) g/dL Lipase (8-78) U/L Beta HCG, Quant mIU/mL Urine Color Urine Appearance Urine pH (5.0-9.0) Ur Specific [place] (1.005-1.025) Urine Protein (Neg-Trace) mg/dL Urine Glucose (UA) (Negative) mg/dL Urine Ketones (Negative) mg/dL Urine Blood (Negative) Urine Nitrite (Negative) Ur Leukocyte Esterase (Negative) Urine Test (NEGATIVE) COVID-19 (BELEM) Negative (Negative) COVID-19 Clin Com See Note Blood Type Antibody Screen Independent Interpretation I performed an independent interpretation of an: Ultrasound Radiology Impression Discussion of test interpretation with radiology: I have reviewed the radiologist's reading. Radiologist Impression: [place] [id number] Ultrasound Report Signed Patient: Petr Connolly MR#: [id number] : 2000 Acct:[id number] Age/Sex: 23 / F ADM Date: 12/31/23 Loc: .ED Attending Dr: Ordering Physician: Remington Colin Date of Service: 12/31/23 Procedure(s): US OB pelvic and transvaginal Accession Number(s): [id number] cc: Remington Colin; Neel Duque MD~ EXAMINATION: US OBSTETRICAL ULTRASOUND CLINICAL INFORMATION: Abdominal pain COMPARISON: Pelvic ultrasound 04/07/2017 LMP: 12/05/2023. Gestational age by maternal dates is 3 weeks and 5 days. Estimated date of delivery by maternal dates is 08/31/2024. TECHNIQUE: Ultrasound of the maternal pelvis is performed using transabdominal and transvaginal transducers. Transvaginal imaging is performed due to inadequate visualization transabdominally. M-mode Doppler is also performed. FINDINGS: There is no intrauterine gestational sac identified. Uterus is anteverted in position. The endometrium measures 0.7 cm in thickness. MATERNAL ADNEXA: The right maternal ovary measures 3.9 x 1.2 x 1.9 cm. There is a 2.5 x 1.4 x 1.8 cm solid mass in the right adnexa suspicious for tubal ectopic . The left maternal ovary measures 1.3 x 2.4 x 2.9 cm. A 2.1 cm hemorrhagic left ovarian cyst. There is small volume of complex free fluid suggestive of blood products. US/US OB pelvic and transvaginal IMPRESSION: A 2.5 cm solid mass in the right adnexa suspicious for a tubal ectopic with small volume of complex free fluid in the pelvis suggesting blood products and ectopic rupture. The findings and recommendations were discussed with GWENDOLYN Reyes by telephone at 12/31/2023 12:38 PM and it was ascertained that the content and urgency of the report was understood at the time of direct communication. Dictated By: Ema Almanzar MD Signed By: <Electronically signed by Ema Almanzar MD in OV> 12/31/23 1238 DD/ 1106 TD/TT: Lead Cargoman: Critical Care Time Critical Care Time Critical Care Time: Yes Total Critical Care Time: 60 Attestation: Patient is positive ectopic . Positive ketones in urine. Type and screen ordered. Patient given lactated Ringer's. Case discussed with OBGYCapri bruner with Dr. Tucker for transfer. Discharge Plan Discharge Clinical Impression: Ectopic of right ovary Patient Disposition: er Acute Care Hospital Transfer Details: [facility] 2 Building Prescriptions: No Action albuterol sulfate [Ventolin HFA] 90 mcg/actuation HFA aerosol inhaler 2 puff inhalation Q6H PRN (Reason: wheezing) acetaminophen 500 mg tablet 500 mg PO Q6H PRN (Reason: pain) ibuprofen 600 mg tablet 600 mg PO Q6H PRN (Reason: Pain) ondansetron 4 mg tablet,disintegrating 4 mg PO Q8H PRN (Reason: nausea and vomiting) Qty: 10 0RF dicyclomine 10 mg capsule 10 mg PO Q6H PRN Interventions: Acute Care Transfer Worksheet (ED) Last Done: 12/31/23 14:02 Discharge Date/Time: 12/31/23 14:03 Print Language: Tajik
[2023-12-31 11:38] LABS: Partial Thromboplastin Time 35.4 SEC (26.0-36.8)
--- NOTE | 2023-12-31 11:46 | PC.NURSE ---
Pt reports N/V/D today and generalized abdominal pain and bloating for past few days. Denies blood in stool or difficulty urinating. ABD slightly distended, soft. Alert and oriented, breathing even and unlabored, skin warm and dry.
[2023-12-31 11:54] VITALS: BP 108/62; PULSE 77; RESP 16; TEMP 36.9; O2SAT 98
[2023-12-31 13:12] VITALS: BP 113/68; PULSE 72; RESP 18
[2023-12-31 13:29] LABS: COVID-19 Test Negative (Negative); IDNOW Serial# 6674DD1D
[2023-12-31 14:02] VITALS: BP 113/68; PULSE 72; RESP 18; TEMP 36.6; O2SAT 97
== END 2023-12-31 14:03 | disposition short-term general hospital (02) ==
PROVIDERS: Physician Assistant; Emergency Provider Emergency Medicine; PCP Internal Medicine
DX: O00.201 Right ovarian pregnancy without intrauterine pregnancy (principal); O08.9 Unspecified complication following an ectopic and molar pregnancy; R10.9 Unspecified abdominal pain; R11.10 Vomiting, unspecified; R19.7 Diarrhea, unspecified
CPT/HCPCS: 36415; 76801; 76817; 80053; 81003; 81025; 82248; 83690; 84702; 85025; 85610; 85730; 86850; 86900; 86901; 87635; 96361; 96374; 99284; 99285; J2405; J7120

== ENCOUNTER 2024-01-02 04:00 | Emergency (ER) | payer OTHER, SELFPAY ==
--- NOTE | 2024-01-02 | ECG_ITS ---
Test Reason : CHEST /ABD PAIN Blood Pressure : / mmHG Vent. Rate : 109 BPM Atrial Rate : 109 BPM P-R Int : 118 ms QRS Dur : 066 ms QT Int : 350 ms P-R-T Axes : 061 025 -07 degrees QTc Int : 471 ms Sinus tachycardia Otherwise normal ECG When compared with ECG of 18-NOV-2020 06:10, No significant change was found Referred By: Generic ED Physician Electronically Signed By:Talat Rivera
--- NOTE | ~2024-01-02 | CT_ITS ---
EXAMINATION: CT ABDOMEN AND PELVIS WITHOUT CONTRAST CLINICAL INFORMATION: Post op yesterday, increased pain. COMPARISON: 10/14/2023 TECHNIQUE: Multidetector volumetric imaging was performed from the superior aspect of the liver through the pubic symphysis. Sagittal and coronal reformatted images were obtained on the technologist's workstation. This CT examination was performed using dose optimization techniques as appropriate, variously including the following: *Automated exposure control *Adjustment of mA and/or kV according to patient size (this includes techniques or standardized protocols for targeted exams where dose is matched to indication/reason for exam; i.e. extremities or head) *Use of iterative reconstruction technique DLP: 357 mGy-cm FINDINGS: [employer]: Pneumoperitoneum LUNG BASES: The visualized lung bases are unremarkable. LIVER, GALLBLADDER, AND BILIARY TREE: The liver is normal in size, shape, and attenuation. No focal hepatic lesion or biliary ductal dilatation is present. The gallbladder is poorly delineated but appears to be present without significant distention. PANCREAS: Unremarkable. SPLEEN: Unremarkable. ADRENAL GLANDS: Unremarkable. KIDNEYS AND URETERS: The kidneys are normal in size, shape, and attenuation. No hydronephrosis, hydroureter, or calculi seen. No perinephric stranding. BLADDER: Distended and unremarkable in appearance. PERITONEUM: Large pneumoperitoneum upper and lower abdomen, air tracks around the lower mediastinal esophagus. Free pelvic fluid. GASTROINTESTINAL TRACT: Study significantly limited without IV or oral contrast. Stomach is moderately distended without definite abnormality. Nonobstructive bowel pattern. Appendix appears unremarkable. Dilated air-filled transverse colon. ABDOMINAL WALL: Left anterior intramuscular and soft tissue air. Periumbilical soft tissue air and stranding. Findings likely related to reported recent surgery. LYMPH NODES: Several mildly prominent right lower quadrant and mesenteric lymph nodes. No pathologic retroperitoneal lymphadenopathy. VASCULAR: Unremarkable. PELVIC VISCERA: No pelvic pathology given study limitations. Free pelvic fluid. Small phleboliths. OSSEOUS STRUCTURES: Unremarkable. CT/CT abdomen pelvis wo IV con IMPRESSION: Large pneumoperitoneum, free pelvic fluid. Patient with history of surgery one day earlier but further details are not provided and study is limited without IV or oral contrast. Correlate clinically, with laboratory values and surgical history. Fleischner guidelines were followed.
[2024-01-02 04:06] VITALS: BMI 21.5
[2024-01-02 04:08] VITALS: BP 122/70; PULSE 123; RESP 28; TEMP 37.1; O2SAT 100; BMI 21.5
--- NOTE | 2024-01-02 04:27 | ED.FEMALEGU ---
HPI - Female Genitourinary General Chief complaint: Urogenital-Female Stated complaint: Surgery 1 day agp/Chest pain SOB Time Seen by Provider: 01/02/24 04:23 Source: patient Mode of arrival: ambulatory Limitations: no limitations History of Present Illness ED Provider: acacia HINOJOSA Narrative: Patient is status post right tubal ectopic laparoscopic resection done yesterday discharge from [facility] was sleeping all day when woke up coughed and noticed pain in the abdomen with increased anxiety nauseated vomited pain is diffuse Related Data Home Medications ?Medication ?Instructions ?Recorded ?Confirmed acetaminophen 500 mg tablet 500 mg PO Q6H PRN pain 04/04/23 11/27/23 albuterol sulfate 90 mcg/actuation 2 puff inhalation Q6H PRN wheezing 04/04/23 11/27/23 aerosol inhaler (Ventolin HFA) ibuprofen 600 mg tablet 600 mg PO Q6H PRN Pain 10/18/23 11/27/23 dicyclomine 10 mg capsule 10 mg PO Q6H PRN 11/27/23 11/27/23 Previous Rx's ?Medication ?Instructions ?Recorded ondansetron 4 mg disintegrating 4 mg PO Q8H PRN nausea and 11/27/23 tablet vomiting #10 tabs Allergies Allergy/AdvReac Type Severity Reaction Status Date / Time Seasonal Allergies Allergy Intermediate Itchy Eyes Verified 01/02/24 04:12 Review of Systems Review of Systems: Yes all other systems are reviewed and are negative [facility] Past Medical History Medical History Anxiety and depression Cough Cough due to LYNN inhibitor Seasonal allergies Low back pain Migraine with aura Asthma Surgical History H/O colonoscopy Family History Family History Paternal Grandmother Breast CA Mother Crohn disease Father Migraine Brother Bipolar 1 disorder Maternal Grandmother Heart disease Maternal Aunt Colon cancer Other Mental health disorder Social History Social History Housing: Apartment Alcohol intake: never Patient Tobacco Use Status: Never used Tobacco Smoked in Last 30 Days: No e-Cigarette/Vaping Use: Never Used Second Hand Smoke Exposure: No Use of substances other than those prescribed or required for medical reasons: Yes Substance Use Type: Marijuana Advance Directives: No Advance Directives Information Provided: Yes Do you have a plan to hurt others: No Plan Patient : No service: No Current occupational status: employed 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 Oriented X3. In moderate distress anxious Eyes: PERRLA, No Nystagmus ENT: Pharynx normal. Oral Mucosa moist Neck: Normal inspection. Neck supple. CVS: Normal heart rate and rhythm. Pulses normal. Respiratory: No respiratory distress. Equal air entry bilateral, no wheezing/rales/rhonchi Abdomen: Soft and diffuse tenderness Bowel sounds are sluggish no mass palpable, no CVA tenderness Skin: Skin warm and dry. Normal skin color. Normal skin turgor. Extremities: No lower extremity edema. No calf tenderness Neuro: Oriented X 3. No motor deficit. Medications Administered Discontinued Medications Generic Name Dose Route Start Last Admin Trade Name Freq PRN Reason Stop Dose Admin Sodium Chloride 1,000 mls @ 999 mls/hr 01/02/24 04:23 01/02/24 06:22 Ns IV 01/02/24 05:23 Infused .Q1H1M ONE Infusion Lorazepam 1 mg 01/02/24 04:25 01/02/24 04:50 Lorazepam 2 Mg/Ml Vial IVPUSH 01/02/24 04:26 1 mg ONCE ONE Administration Morphine Sulfate 4 mg 01/02/24 04:25 01/02/24 04:51 Morphine Sulfate 4 Mg/Ml Cartridge IVPUSH 01/02/24 04:26 4 mg ONCE ONE Administration Protocol Ondansetron HCl 4 mg 01/02/24 04:25 01/02/24 04:50 Ondansetron Hcl 4 Mg/2 Ml Vial IVPUSH 01/02/24 04:26 4 mg ONCE ONE Administration Medical Decision Making Medical Decision Making [facility] Narrative: Patient is post laparoscopic ectopic in the right side comes here for pain in abdomen CT scan negative for acute labs are stable discharge patient home pending final results of abdominal CT scan Differential Diagnosis Differential Diagnoses: The differential diagnosis associated with the presentation includes Lab Data [facility] Lab Attestation statement: I reviewed the patient's lab results. 01/02/24 04:46 01/02/24 04:43 Labs: Lab Results 01/02/24 01/02/24 01/02/24 Range/Units 04:43 04:46 05:17 WBC 15.3 H (4.8-10.8) X10*3/uL RBC 5.07 (4.20-5.50) X10*6/uL Hgb 14.5 (12.0-16.0) g/dl Hct 40.6 (37.0-47.0) % MCV 80.1 (80.0-98.0) fL MCH 28.6 (27.0-33.0) pg MCHC 35.7 H (31.0-35.0) g/dl RDW 13.2 (11.0-16.0) % Plt Count 277 (160-400) X10*3/uL MPV 11.2 (9.4-12.3) fL Immature Gran % (Auto) 0.7 H (0.0-0.4) % Neut % (Auto) 79.6 H (45-73) % Lymph % (Auto) 14.2 L (20-40) % Lawrence % (Auto) 5.0 (2-11) % Eos % (Auto) 0.2 (0-4) % Baso % (Auto) 0.3 (0-2) % Lymph # (Auto) 2.2 (1.2-4.9) X10*3/uL Lawrence # (Auto) 0.8 (0.1-1.2) X10*3/uL Eos # (Auto) 0.0 (0.0-0.4) X10*3/uL Baso # (Auto) 0.0 (0.0-0.2) X10*3/uL Abs Immat Gran (auto) 0.10 H (0.00-0.03) X10*3/uL Absolute Neuts (auto) 12.2 H (2.0-8.3) x10*3/uL Absolute Nucleated RBC 0.000 (0.0-0.012) X10*3/uL Nucleated RBC % (auto) 0.0 (0.0-0.2) /100WBC Sodium 138 (135-145) mmol/L Potassium 3.5 (3.3-5.1) mmol/L Chloride 106 (96-108) mmol/L Carbon Dioxide 18 L (22-29) mmol/L Anion Gap 18 (12-20) BUN 7 L (9-16) mg/dL Creatinine 0.67 (0.5-1.4) mg/dL Estim Creat Clear Calc 107.1 Estimated GFR > 60 Random Glucose 82 (60-115) mg/dL Lactic Acid 1.7 (0.5-2.0) mmol/L Calcium 9.5 (8.4-10.2) mg/dL Total Bilirubin 1.0 (0.0-1.0) mg/dL AST 21 (5-31) U/L ALT 14 (0-31) U/L Alkaline Phosphatase 60 (39-117) U/L Total Protein 7.5 (6.5-8.0) g/dL Albumin 4.5 (3.5-5.0) g/dL Lipase 15 (8-78) U/L Urine Color Urine Appearance Urine pH (5.0-9.0) Ur Specific Gable (1.005-1.025) Urine Protein (Neg-Trace) mg/dL Urine Glucose (UA) (Negative) mg/dL Urine Ketones (Negative) mg/dL Urine Blood (Negative) Urine Nitrite (Negative) Ur Leukocyte Esterase (Negative) Urine RBC (0-2) /HPF Urine WBC (0-5) /HPF Ur Squamous Epith Cells (0-2) /HPF Urine Bacteria (None Seen) Hyaline Casts (0-2) /LPF 01/02/24 Range/Units 06:14 WBC (4.8-10.8) X10*3/uL RBC (4.20-5.50) X10*6/uL Hgb (12.0-16.0) g/dl Hct (37.0-47.0) % MCV (80.0-98.0) fL MCH (27.0-33.0) pg MCHC (31.0-35.0) g/dl RDW (11.0-16.0) % Plt Count (160-400) X10*3/uL MPV (9.4-12.3) fL Immature Gran % (Auto) (0.0-0.4) % Neut % (Auto) (45-73) % Lymph % (Auto) (20-40) % Lawrence % (Auto) (2-11) % Eos % (Auto) (0-4) % Baso % (Auto) (0-2) % Lymph # (Auto) (1.2-4.9) X10*3/uL Lawrence # (Auto) (0.1-1.2) X10*3/uL Eos # (Auto) (0.0-0.4) X10*3/uL Baso # (Auto) (0.0-0.2) X10*3/uL Abs Immat Gran (auto) (0.00-0.03) X10*3/uL Absolute Neuts (auto) (2.0-8.3) x10*3/uL Absolute Nucleated RBC (0.0-0.012) X10*3/uL Nucleated RBC % (auto) (0.0-0.2) /100WBC Sodium (135-145) mmol/L Potassium (3.3-5.1) mmol/L Chloride (96-108) mmol/L Carbon Dioxide (22-29) mmol/L Anion Gap (12-20) BUN (9-16) mg/dL Creatinine (0.5-1.4) mg/dL Estim Creat Clear Calc Estimated GFR Random Glucose (60-115) mg/dL Lactic Acid (0.5-2.0) mmol/L Calcium (8.4-10.2) mg/dL Total Bilirubin (0.0-1.0) mg/dL AST (5-31) U/L ALT (0-31) U/L Alkaline Phosphatase (39-117) U/L Total Protein (6.5-8.0) g/dL Albumin (3.5-5.0) g/dL Lipase (8-78) U/L Urine Color Yellow Urine Appearance Clear Urine pH 6.0 (5.0-9.0) Ur Specific Gable 1.015 (1.005-1.025) Urine Protein Negative (Neg-Trace) mg/dL Urine Glucose (UA) Negative (Negative) mg/dL Urine Ketones >=160 (Negative) mg/dL Urine Blood Trace H (Negative) Urine Nitrite Negative (Negative) Ur Leukocyte Esterase Small (1+) H (Negative) Urine RBC 3-5 H (0-2) /HPF Urine WBC 11-20 H (0-5) /HPF Ur Squamous Epith Cells 0-2 (0-2) /HPF Urine Bacteria None Seen (None Seen) Hyaline Casts 0-2 (0-2) /LPF Independent Interpretation I performed an independent interpretation of an: CT Scan Discharge Plan Discharge Clinical Impression: Abdominal pain Patient Disposition: Home, Self-Care Instructions: Abdominal Pain (ED) Additional Instructions: Drink plenty of fluids Your pain in abdomen is postop and it should get better with time Prescriptions: No Action albuterol sulfate [Ventolin HFA] 90 mcg/actuation HFA aerosol inhaler 2 puff inhalation Q6H PRN (Reason: wheezing) acetaminophen 500 mg tablet 500 mg PO Q6H PRN (Reason: pain) ibuprofen 600 mg tablet 600 mg PO Q6H PRN (Reason: Pain) ondansetron 4 mg tablet,disintegrating 4 mg PO Q8H PRN (Reason: nausea and vomiting) Qty: 10 0RF dicyclomine 10 mg capsule 10 mg PO Q6H PRN Print Language: Upper Sorbian
[2024-01-02] MEDS: 0.9 % Sodium Chloride 1,000 ML 999 ML IV (04:50)
[2024-01-02] MEDS: ondansetron HCL 4 MG/2 ML VIAL IVPUSH (04:50)
[2024-01-02] MEDS: LORazepam 2 MG/ML VIAL 1 MG IVPUSH (04:50)
[2024-01-02 04:51] LABS: Basophils Percent Auto 0.3 % (0-2); Eosinophils Percent Auto 0.2 % (0-4); Hematocrit 40.6 % (37.0-47.0); Hemoglobin 14.5 g/dl (12.0-16.0); Imm Gran Pct Auto 0.7 % (0.0-0.4); Lymphocytes Absolute Auto 2.2 X10*3/uL (1.2-4.9); Lymphocytes Percent Auto 14.2 % (20-40); MANUAL DIFF FLAG NO; Mean Corpuscular HGB Conc 35.7 g/dl (31.0-35.0); Mean Corpuscular Hemoglobin 28.6 pg (27.0-33.0); Mean Corpuscular Volume 80.1 fL (80.0-98.0); Mean Platelet Volume 11.2 fL (9.4-12.3); Monocytes Absolute Auto 0.8 X10*3/uL (0.1-1.2); Neutrophils Absolute Auto 12.2 x10*3/uL (2.0-8.3); Neutrophils Percent Auto 79.6 % (45-73); Platelet Count 277 X10*3/uL (160-400); Red Blood Count 5.07 X10*6/uL (4.20-5.50); Red Cell Distribution Width 13.2 % (11.0-16.0); White Blood Count 15.3 X10*3/uL (4.8-10.8)
[2024-01-02] MEDS: Morphine Sulfate 4 MG/ML CARTRIDGE IVPUSH (04:51)
--- NOTE | 2024-01-02 05:01 | PC.NURSE ---
pt from home, a&ox4, respirations even and unlabored. pt reporting that she has been previously discharged from [facility] after a tubal ligation, pt reports losing her right tube. about an hour prior to arrival pt started expierencing severe lower abdominal pain radiating into the mid back and shoulder. pt reporting left leg numbness. 22G placed in right wrist, labs obtained. pt medicated per aug, IV fluid bolus administered.
[2024-01-02 05:21] LABS: Alanine Aminotransferase 14 U/L (0-31); Albumin Level 4.5 g/dL (3.5-5.0); Alkaline Phosphatase 60 U/L (39-117); Anion Gap 18 (12-20); Aspartate Amino Transferase 21 U/L (5-31); Blood Urea Nitrogen 7 mg/dL (9-16); Calcium 9.5 mg/dL (8.4-10.2); Carbon Dioxide 18 mmol/L (22-29); Chloride 106 mmol/L (96-108); Creatinine Clr Calc Pharmacy 107.1; Estimated Glomerular Filt Rate > 60; Glucose Random 82 mg/dL (60-115); Lipase 15 U/L (8-78); Potassium 3.5 mmol/L (3.3-5.1); Sodium 138 mmol/L (135-145); Total Protein 7.5 g/dL (6.5-8.0)
[2024-01-02 05:32] LABS: Lactic Acid 1.7 mmol/L (0.5-2.0)
[2024-01-02 06:00] VITALS: BP 95/49; PULSE 77; RESP 16; O2SAT 99
[2024-01-02 06:21] LABS: Appearance Urine Clear; Color Urine Yellow; Glucose Urine UA Negative (Negative); Leukocyte Esterase Urine Small (1+) (Negative); Nitrite Urine Negative (Negative); Specific Gravity - Urine 1.015 (1.005-1.025); UMIC TRIGGER UACC YES; Urine Blood Trace (Negative); Urine Ketones >=160 mg/dL (Negative); Urine Protein Negative (Neg-Trace)
[2024-01-02 06:24] LABS: Bacteria Urine None Seen (None Seen); Hyaline Casts Urine 0-2 /LPF (0-2); Squamous Epithelial Cell Urine 0-2 /HPF (0-2); UACC Culture Trigger YES
[2024-01-02 08:46] VITALS: BP 98/53; PULSE 75; RESP 12; TEMP 37.4; O2SAT 98
[2024-01-02 11:02] VITALS: BP 95/57; PULSE 87; RESP 17; TEMP 37.5; O2SAT 100
[2024-01-02] MEDS: Acetaminophen 325 MG TABLET 975 MG PO (11:25)
[2024-01-02 11:28] VITALS: BP 98/57; PULSE 80; RESP 18; TEMP 37.5; O2SAT 97
== END 2024-01-02 11:44 | disposition home or self-care (01) ==
PROVIDERS: Emergency Provider Internal Medicine; PCP Internal Medicine
DX: R10.9 Unspecified abdominal pain (principal); R11.2 Nausea with vomiting, unspecified; R07.9 Chest pain, unspecified; Z98.890 Other specified postprocedural states
CPT/HCPCS: 36415; 74176; 80053; 81001; 83605; 83690; 85025; 87086; 87147; 93005; 96361; 96374; 96375; 99284; 99285; J2060; J2270; J2405

== ENCOUNTER → 2024-01-02 04:04 | Outpatient (BNV) | payer OTHER, SELFPAY | PROVIDERS: Emergency Provider Internal Medicine; PCP Internal Medicine; Visit Provider Internal Medicine Cardiovascular Disease | DX: R00.0 Tachycardia, unspecified (principal) | CPT/HCPCS: 93010 ==

== ENCOUNTER 2024-02-19 08:28 | Emergency (ER) | payer OTHER, SELFPAY ==
--- NOTE | ~2024-02-19 | CT_ITS ---
EXAMINATION: CT ABDOMEN AND PELVIS WITH CONTRAST CLINICAL INFORMATION: Right lower quadrant tenderness. COMPARISON: CT scans dating between January 02, 2024 and February 21, 2018. TECHNIQUE: Multidetector volumetric images were obtained from the superior aspect of the liver through the pubic symphysis following administration 85 mL of Omnipaque 350 intravenous contrast. Sagittal and coronal reformatted images were obtained on the technologist's workstation. Oral contrast: No This CT examination was performed using dose optimization techniques as appropriate, variously including the following: *Automated exposure control *Adjustment of mA and/or kV according to patient size (this includes techniques or standardized protocols for targeted exams where dose is matched to indication/reason for exam; i.e. extremities or head) *Use of iterative reconstruction technique DLP: 335 mGy-cm FINDINGS: LUNG BASES: The lung bases appear clear, with no evidence of inflammation or nodules. LIVER, GALLBLADDER, AND BILIARY TREE: The liver appears unremarkable in size, shape, and attenuation. No focal hepatic lesion or biliary ductal dilatation is appreciated. Unremarkable appearance of the gallbladder. PANCREAS: Unremarkable SPLEEN: Unremarkable ADRENAL GLANDS: Unremarkable KIDNEYS AND URETERS: The kidneys appear unremarkable in size, shape, and attenuation. Limited evaluation for renal collecting system stones due to the presence of intravenous contrast. No hydronephrosis. BLADDER: Unremarkable GASTROINTESTINAL TRACT: Left lower quadrant small bowel intussusception of approximately 2 cm length (image 56, axial series 3; image 40, coronal series 5). No evidence of obstruction. Unremarkable appearance of the stomach and colon. Abnormal-appearing distal ileum. No evidence of appendicitis. PERITONEAL CAVITY: Trace fluid in the cul-de-sac, nonspecific. ABDOMINAL WALL: No significant hernia is appreciated. LYMPH NODES: Suspect at least 3 right lower quadrant mesenteric nodes measuring between 0.5 and 0.6 cm in short axis. VASCULAR: Right ovarian venous reflux. 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 PELVIC VISCERA: Unremarkable OSSEOUS STRUCTURES: Unremarkable CT/CT abdomen pelvis w IV con IMPRESSION: Left lower quadrant small bowel intussusception of approximately 2 cm length. No evidence of obstruction. Suspect at least 3 right lower quadrant mesenteric nodes measuring between 0.5 and 0.6 cm in short axis. Cannot exclude mesenteric adenitis. Right ovarian venous reflux. 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 Additional findings, as above. Electronically signed by: Gil Stevens MD 02/19/2024 03:57 PM EDT
[2024-02-19 09:26] VITALS: BP 103/57; PULSE 67; RESP 20; TEMP 36.7; O2SAT 99; BMI 21.6
[2024-02-19 09:44] LABS: MANUAL DIFF FLAG NO
[2024-02-19 09:49] LABS: Appearance Urine Clear; Color Urine Dark Yellow; Glucose Urine UA Negative (Negative); Leukocyte Esterase Urine Trace (Negative); Nitrite Urine Negative (Negative); Specific Gravity - Urine 1.025 (1.005-1.025); UMIC TRIGGER UACC YES; Urine Blood Negative (Negative); Urine Ketones 15 mg/dL (Negative); Urine Protein 30 (1+) mg/dL (Neg-Trace)
[2024-02-19 09:50] LABS: Basophils Percent Auto 0.4 % (0-2); Eosinophils Absolute Auto 0.1 X10*3/uL (0.0-0.4); Hematocrit 39.8 % (37.0-47.0); Imm Gran Abs Auto 0.02 X10*3/uL (0.00-0.03); Imm Gran Pct Auto 0.2 % (0.0-0.4); Lymphocytes Absolute Auto 1.7 X10*3/uL (1.2-4.9); Lymphocytes Percent Auto 20.9 % (20-40); Mean Corpuscular HGB Conc 35.2 g/dl (31.0-35.0); Mean Corpuscular Hemoglobin 28.6 pg (27.0-33.0); Mean Corpuscular Volume 81.4 fL (80.0-98.0); Mean Platelet Volume 10.7 fL (9.4-12.3); Monocytes Absolute Auto 0.5 X10*3/uL (0.1-1.2); Monocytes Percent Auto 6.3 % (2-11); Neutrophils Absolute Auto 5.9 x10*3/uL (2.0-8.3); Neutrophils Percent Auto 71.2 % (45-73); Platelet Count 256 X10*3/uL (160-400); Red Blood Count 4.89 X10*6/uL (4.20-5.50); Red Cell Distribution Width 12.7 % (11.0-16.0); White Blood Count 8.2 X10*3/uL (4.8-10.8)
[2024-02-19 09:52] LABS: UPreg QC Valid YES; Urine Pregnancy NEGATIVE (NEGATIVE)
[2024-02-19 09:54] LABS: Bacteria Urine None Seen (None Seen); Hyaline Casts Urine 0-2 /LPF (0-2); RBC Urine 0-2 /HPF (0-2); Squamous Epithelial Cell Urine 0-2 /HPF (0-2); WBC Urine 0-5 /HPF (0-5)
[2024-02-19 10:02] LABS: Alanine Aminotransferase 14 U/L (0-31); Albumin Level 4.5 g/dL (3.5-5.0); Alkaline Phosphatase 74 U/L (39-117); Anion Gap 11 (12-20); Aspartate Amino Transferase 17 U/L (5-31); Bilirubin Total 0.5 mg/dL (0.0-1.0); Blood Urea Nitrogen 8 mg/dL (9-16); Calcium 9.3 mg/dL (8.4-10.2); Carbon Dioxide 22 mmol/L (22-29); Chloride 112 mmol/L (96-108); Creatinine Clr Calc Pharmacy 102.5; Estimated Glomerular Filt Rate > 60; Glucose Random 103 mg/dL (60-115); Potassium 3.7 mmol/L (3.3-5.1); Sodium 141 mmol/L (135-145); Total Protein 7.3 g/dL (6.5-8.0)
--- NOTE | 2024-02-19 10:17 | ED.GENADULT ---
HPI - General Adult General Chief complaint: Back Pain/Injury Stated complaint: back pain sob hot cold flashed vomiting nausea Time Seen by Provider: 02/19/24 10:01 Source: patient Mode of arrival: ambulatory Limitations: no limitations History of Present Illness ED Provider: opal HINOJOSA narrative: Patient is a 23-year-old female with history of asthma, migraines, PCOS, right salpingectomy, anxiety and depression presenting to the emergency department with complaint of pain which began in right flank area, has since migrated to RLQ of abdomen with associated nausea, vomiting, and diarrhea. Symptoms began this morning. Emesis is non-bloody, non-bilious, denies hematochezia or melena. Denies any vaginal bleeding or other abnormal vaginal discharge. Did not take any OTC medications prior to arrival. complaint: abdominal pain Onset (ago): hour(s) Location: abdomen and right Severity: severe Quality: aching Pain Consistency: colicky Associated symptoms: nausea/vomiting Treatments prior to arrival: none Related Data Home Medications ?Medication ?Instructions ?Recorded ?Confirmed acetaminophen 500 mg tablet 500 mg PO Q6H PRN pain 04/04/23 11/27/23 albuterol sulfate 90 mcg/actuation 2 puff inhalation Q6H PRN wheezing 04/04/23 11/27/23 aerosol inhaler (Ventolin HFA) ibuprofen 600 mg tablet 600 mg PO Q6H PRN Pain 10/18/23 11/27/23 dicyclomine 10 mg capsule 10 mg PO Q6H PRN 11/27/23 11/27/23 Previous Rx's ?Medication ?Instructions ?Recorded ondansetron 4 mg disintegrating 4 mg PO Q8H PRN nausea and 11/27/23 tablet vomiting #10 tabs ondansetron 4 mg disintegrating 4 mg PO Q8H PRN nausea and 02/19/24 tablet vomiting #6 tabs Allergies Allergy/AdvReac Type Severity Reaction Status Date / Time Seasonal Allergies Allergy Intermediate Itchy Eyes Verified 02/19/24 09:30 Review of Systems Review of Systems: As per HPI. Yes all other systems are reviewed and are negative Constitutional: Constitutional: Reports as per HPI [facility] Past Medical History Medical History Anxiety and depression Cough Cough due to LYNN inhibitor Seasonal allergies Low back pain Migraine with aura Asthma Surgical History H/O colonoscopy Family History Family History Paternal Grandmother Breast CA Mother Crohn disease Father Migraine Brother Bipolar 1 disorder Maternal Grandmother Heart disease Maternal Aunt Colon cancer Other Mental health disorder Social History Social History Housing: Apartment Alcohol intake: never Patient Tobacco Use Status: Never used Tobacco e-Cigarette/Vaping Use: Never Used Second Hand Smoke Exposure: No Substance Use Type: Marijuana Advance Directives: No Advance Directives Information Provided: No Do you have a plan to hurt others: No Plan service: No Current occupational status: employed 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 Current occupational exposures/hazards: No Sexual orientation: Straight/Heterosexual Gender identity: Female Cognitive needs: No Hearing needs: No Vision needs: No Physical Exam ED Vital Signs: Vital Signs - 24 hr 02/19/24 09:26 02/19/24 11:08 02/19/24 11:29 Temperature 98.0 F 98.1 F Pulse Rate 67 63 Respiratory Rate 20 16 16 Blood Pressure 103/57 L 100/58 L Pulse Oximetry 99 99 Oxygen Delivery Method Room Air Room Air 02/19/24 14:34 02/19/24 16:47 Temperature 98.1 F 98.6 F Pulse Rate 61 75 Respiratory Rate 16 18 Blood Pressure 98/43 L 104/52 L Pulse Oximetry 99 100 Oxygen Delivery Method Room Air Room Air BMI result Body Mass Index 21.6 Vital signs have been reviewed and appear to be correct. Blood pressure normal. Heart rate normal. Respiratory rate normal. Temperature normal. Oxygen saturation normal. Const General: cooperative, healthy appearing and no acute distress Orientation/consciousness: oriented to person, oriented to place, oriented to time and patient oriented x3 Limitations: no limitations HENMT Head: Yes normocephalic and Yes atraumatic Ears: external ears normal General nose exam: Normal external nose present Face and sinus: Yes face symmetric Mouth: oropharynx normal and moist mucous membranes Throat: Yes uvula midline Eyes Pupils: Equal, round and reactive pupils present Neck Neck: Yes normal visual inspection and Yes supple Resp Effort & Inspection: normal respiratory effort and able to speak in complete sentences Auscultation: clear to auscultation bilaterally Cardio Rate: regular rate Rhythm: regular rhythm Heart sounds: S1 normal heart sound present and S2 normal heart sound present GI Palpation (GI): Soft to palpation, Tenderness to palpation present (GI) in the RLQ, no guarding and No Rebound tenderness present Auscultation: normoactive bowel sounds General: Yes CVA tenderness on the right Back/Spine/Pelvis Back: CVA tenderness Skin General skin exam: elasticity normal and turgor normal Neuro General: oriented to person, oriented to place, oriented to time, patient oriented x3, moves all extremities, no focal motor deficits and CN's II-XI intact bilaterally Cranial nerves: Yes Equal, round and reactive pupils present Cognition (Neuro): normal cognition Extrem General: Yes full ROM, Yes no pedal edema and Yes no calf tenderness Psych Mental Status: mental status grossly normal Affect: normal affect Thought process: Normal thought process present Medications Administered Discontinued Medications Generic Name Dose Route Start Last Admin Trade Name Elq PRN Reason Stop Dose Admin Sodium Chloride 1,000 mls @ 999 mls/hr 02/19/24 11:00 02/19/24 12:15 Ns IV 02/19/24 12:00 Infused .Q1H1M SHARON Infusion Iohexol 100 ml 02/19/24 11:04 02/19/24 11:04 Iohexol 350 Mg/Ml 100 Ml Infus..Btl IV 02/19/24 11:05 85 ml ONCE ONE Administration Ketorolac Tromethamine 15 mg 02/19/24 14:35 02/19/24 14:40 Ketorolac Tromethamine 15 Mg/Ml Vial IVPUSH 02/19/24 14:36 15 mg ONCE ONE Administration Morphine Sulfate 2 mg 02/19/24 10:50 02/19/24 11:08 Morphine Sulfate 2 Mg/Ml Cartridge IVPUSH 02/19/24 10:51 2 mg ONCE ONE Administration Protocol Ondansetron HCl 4 mg 02/19/24 10:50 02/19/24 11:10 Ondansetron Hcl 4 Mg/2 Ml Vial IVPUSH 02/19/24 10:51 4 mg ONCE ONE Administration Medical Decision Making Medical Decision Making MDM Narrative: Patient is a 23-year-old female with history of asthma, migraines, PCOS, right salpingectomy, anxiety and depression presenting to the emergency department with complaint of pain which began in right flank area, has since migrated to RLQ of abdomen with associated nausea, vomiting, and diarrhea. On exam patient is awake, A+Ox3, VS WNL, afebrile, normal neurological exam without focal deficits, physical exam findings as above. Given reported symptoms and physical exam findings, initial differential includes UTI/pyelonephritis, gastroenteritis, appendicitis. Labs notable for no leukocytosis, no anemia, no evidence of NIKO, normal transaminases. CT notable for 2cm LLQ small bowel intussusception without evidence of obstruction, as well as 3 RLQ mesenteric nodes between 5-6mm, and right ovarian venous reflux, 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 My interpretation is in agreement with the radiologist's interpretation. Case discussed with Dr. Zavala who states that as long as patient is able to tolerate PO she can be discharged home. Patient has been requesting to eat/drink prior to CT results. Patient able to tolerate PO food and fluids in the ED, feel she is stable for discharge home. Follow up with PCP and [facility]. Return precautions discussed at bedside. Patient verbalized understanding of and agreement with plan. Differential Diagnosis Differential Diagnoses: The differential diagnosis associated with the presentation includes As per [facility] Admission/Observation Consideration of admission/observation: Escalation of care including admission/observation considered Patient would have been admitted to the hospital had their work up had any findings where hospital admission was appropriate and their clinical presentation warranted hospital admission. Consult Healthcare Provider Management of the patient was discussed with: Refinery Process Engineer (Dr. Zavala, surgery) Lab Data [facility] Lab Attestation statement: I reviewed the patient's lab results. As per [facility] 02/19/24 09:38 02/19/24 09:38 Labs: Lab Results 02/19/24 Range/Units 09:38 WBC 8.2 (4.8-10.8) X10*3/uL RBC 4.89 (4.20-5.50) X10*6/uL Hgb 14.0 (12.0-16.0) g/dl Hct 39.8 (37.0-47.0) % MCV 81.4 (80.0-98.0) fL MCH 28.6 (27.0-33.0) pg MCHC 35.2 H (31.0-35.0) g/dl RDW 12.7 (11.0-16.0) % Plt Count 256 (160-400) X10*3/uL MPV 10.7 (9.4-12.3) fL Immature Gran % (Auto) 0.2 (0.0-0.4) % Neut % (Auto) 71.2 (45-73) % Lymph % (Auto) 20.9 (20-40) % Twiggs % (Auto) 6.3 (2-11) % Eos % (Auto) 1.0 (0-4) % Baso % (Auto) 0.4 (0-2) % Lymph # (Auto) 1.7 (1.2-4.9) X10*3/uL Twiggs # (Auto) 0.5 (0.1-1.2) X10*3/uL Eos # (Auto) 0.1 (0.0-0.4) X10*3/uL Baso # (Auto) 0.0 (0.0-0.2) X10*3/uL Abs Immat Gran (auto) 0.02 (0.00-0.03) X10*3/uL Absolute Neuts (auto) 5.9 (2.0-8.3) x10*3/uL Absolute Nucleated RBC 0.000 (0.0-0.012) X10*3/uL Nucleated RBC % (auto) 0.0 (0.0-0.2) /100WBC Sodium 141 (135-145) mmol/L Potassium 3.7 (3.3-5.1) mmol/L Chloride 112 H (96-108) mmol/L Carbon Dioxide 22 (22-29) mmol/L Anion Gap 11 L (12-20) BUN 8 L (9-16) mg/dL Creatinine 0.70 (0.5-1.4) mg/dL Estim Creat Clear Calc 102.5 Estimated GFR > 60 Random Glucose 103 (60-115) mg/dL Calcium 9.3 (8.4-10.2) mg/dL Magnesium 2.1 (1.6-2.6) mg/dL Total Bilirubin 0.5 (0.0-1.0) mg/dL AST 17 (5-31) U/L ALT 14 (0-31) U/L Alkaline Phosphatase 74 (39-117) U/L Total Protein 7.3 (6.5-8.0) g/dL Albumin 4.5 (3.5-5.0) g/dL Beta HCG, Quant < 2 mIU/mL Urine Color Dark Yellow Urine Appearance Clear Urine pH 6.0 (5.0-9.0) Ur Specific [place] 1.025 (1.005-1.025) Urine Protein 30 (1+) H (Neg-Trace) mg/dL Urine Glucose (UA) Negative (Negative) mg/dL Urine Ketones 15 (Negative) mg/dL Urine Blood Negative (Negative) Urine Nitrite Negative (Negative) Ur Leukocyte Esterase Trace H (Negative) Urine RBC 0-2 (0-2) /HPF Urine WBC 0-5 (0-5) /HPF Ur Squamous Epith Cells 0-2 (0-2) /HPF Urine Bacteria None Seen (None Seen) Hyaline Casts 0-2 (0-2) /LPF Urine Test NEGATIVE (NEGATIVE) Independent Interpretation I performed an independent interpretation of an: CT Scan Interpretation: CT notable for 2cm LLQ small bowel intussusception without evidence of obstruction, as well as 3 RLQ mesenteric nodes between 5-6mm, and right ovarian venous reflux, 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 Radiology Impression Discussion of test interpretation with radiology: I have reviewed the radiologist's reading. Radiologist Impression: CT/CT abdomen pelvis w IV con IMPRESSION: Left lower quadrant small bowel intussusception of approximately 2 cm length. No evidence of obstruction. Suspect at least 3 right lower quadrant mesenteric nodes measuring between 0.5 and 0.6 cm in short axis. Cannot exclude mesenteric adenitis. Right ovarian venous reflux. 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 Additional findings, as above. External Record Review External record reviewed: Inpatient record, Office record and Outpatient record Prescription Management I considered prescription management with: Other Discharge Plan Discharge Clinical Impression: Nausea & vomiting Patient Disposition: Home, Self-Care Instructions: Acute Nausea and Vomiting (ED), Acute Abdominal Pain (DC) Additional Instructions: You have been evaluated in the emergency department today for abdominal pain, nausea, vomiting and diarrhea. Your evaluation did not show evidence of medical conditions requiring emergent intervention at this time. Please schedule an appointment with your primary care physician. Return to the emergency department if you experience worsening or uncontrolled pain, fevers 100.4? F or greater, recurrent vomiting, inability to tolerate food or fluids by mouth, bloody stools or vomit, black or tarry stools, or any other concerning symptoms. Follow up with your [facility]. Prescriptions: New ondansetron 4 mg tablet,disintegrating 4 mg PO Q8H PRN (Reason: nausea and vomiting) Qty: 6 0RF No Action albuterol sulfate [Ventolin HFA] 90 mcg/actuation HFA aerosol inhaler 2 puff inhalation Q6H PRN (Reason: wheezing) acetaminophen 500 mg tablet 500 mg PO Q6H PRN (Reason: pain) ibuprofen 600 mg tablet 600 mg PO Q6H PRN (Reason: Pain) ondansetron 4 mg tablet,disintegrating 4 mg PO Q8H PRN (Reason: nausea and vomiting) Qty: 10 0RF dicyclomine 10 mg capsule 10 mg PO Q6H PRN Print Language: German
[2024-02-19] MEDS: iohexoL 350 MG/ML 100 ML INFUS..BTL IV (11:04)
[2024-02-19] MEDS: 0.9 % Sodium Chloride 1,000 ML 999 ML IV (11:06)
[2024-02-19 11:08] VITALS: RESP 16
[2024-02-19] MEDS: Morphine Sulfate 2 MG/ML CARTRIDGE IVPUSH (11:08)
[2024-02-19] MEDS: ondansetron HCL 4 MG/2 ML VIAL IVPUSH (11:10)
[2024-02-19 11:29] VITALS: BP 100/58; PULSE 63; RESP 16; TEMP 36.7; O2SAT 99
[2024-02-19 11:33] LABS: HCG Quantitative < 2 mIU/mL
[2024-02-19 11:46] LABS: Magnesium 2.1 mg/dL (1.6-2.6)
[2024-02-19 14:34] VITALS: BP 98/43; PULSE 61; RESP 16; TEMP 36.7; O2SAT 99
[2024-02-19] MEDS: Ketorolac Tromethamine 15 MG/ML VIAL IVPUSH (14:40)
[2024-02-19 16:47] VITALS: BP 104/52; PULSE 75; RESP 18; TEMP 37; O2SAT 100
[2024-02-19 17:23] VITALS: BP 104/52; PULSE 75; RESP 18; TEMP 37; O2SAT 100
== END 2024-02-19 17:24 | disposition home or self-care (01) ==
PROVIDERS: Registered Nurse Emergency; Emergency Provider Emergency Medicine; PCP Internal Medicine
DX: M54.50 Low back pain, unspecified (principal); R06.02 Shortness of breath; R11.2 Nausea with vomiting, unspecified; R10.2 Pelvic and perineal pain; Z79.899 Other long term (current) drug therapy
CPT/HCPCS: 36415; 74177; 80053; 81001; 81025; 83735; 84702; 85025; 96361; 96374; 96375; 99284; J1885; J2270; J2405; Q9967

== ENCOUNTER 2024-02-28 10:43 | Outpatient (AMB) | payer OTHER, SELFPAY ==
[2024-02-28 10:49] VITALS: BP 102/60; PULSE 59; O2SAT 97; BMI 22.1
--- NOTE | 2024-02-28 10:49 | MHC.PC.OV ---
Vital Signs 02/28/24 10:49 Height 5 ft 3 in Weight 125 lb BMI 22.1 BP 102/60 Blood Pressure Location Lt brachial Position Sitting Pulse 59 Pulse Source Pulse Oximeter Pulse Oximetry (%) 97 Oxygen Delivery Method Room Air Intake Visit Reasons: [facility] Back Pain SOB Cold Flashed Vomiting Naus Rotary Rig Engine Operator Required: No Allergies Seasonal Allergies Allergy (Intermediate, Verified 02/28/24 10:50) Itchy Eyes Medication List - Last Reconciled 02/28/24 by Cheryl Rodriguez PA-C acetaminophen 500 mg PO Q6H PRN albuterol sulfate 90 mcg/actuation (Ventolin HFA) 2 puffs inhalation Q6H PRN dicyclomine 10 mg PO Q6H PRN ibuprofen 600 mg PO Q6H PRN ondansetron 4 mg PO Q8H PRN ondansetron 4 mg PO Q8H PRN Tobacco use date assessed: 11/27/23 Dental Screening Dental Screen Date: 11/27/23 HPI [facility] [place] Back Pain SOB Cold Flashed Vomiting Naus HPI Details 23-year-old female with past medical history migraine, asthma, PCOS last seen by Dr. Duque coming in for hospital follow up. In review of the notes, patient was seen in [facility] ED 02/19/2024 for right flank pain and right lower quadrant pain. CT notable for 2 cm left lower quadrant small bowel intussusception and right lower quadrant mesenteric nodes. Case was discussed with General surgery who states as long as patient is tolerating p.o. can be discharged home. Pacemaker discharge to follow up with PCP and OBGYN. Patient does have a family history of Crohn's. She has been seen by GI and had a colonoscopy and endoscopy with multiple biopsies and still does have a diagnosis. She was last seen by Dr. Lu in October 2023. She does still complain of nonbloody vomiting and diarrhea often throughout the week which has been going on for several months. She also complains of epigastric pain and tenderness. She has a history an ectopic last month and was seen by [facility] gynecology for emergency surgery. She does mentioned she has hemorrhoids several often prolapse and can be put back into place. She also endorses voiding small amounts of urine several times per day. [facility] Medical History Anxiety and depression Cough Cough due to LYNN inhibitor Seasonal allergies Low back pain Migraine with aura Asthma Surgical History H/O colonoscopy Family History Paternal Grandmother Breast CA Mother Crohn disease Father Migraine Brother Bipolar 1 disorder Maternal Grandmother Heart disease Maternal Aunt Colon cancer Other Mental health disorder Social History Housing: Apartment Alcohol intake: never Patient Tobacco Use Status: Never used Tobacco e-Cigarette/Vaping Use: Never Used Second Hand Smoke Exposure: No Substance Use Type: Marijuana service: No Current occupational status: employed 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 How often do you have a drink containing alcohol?: Never 2. How many drinks containing alcohol do you have on a typical day when you are drinking?: 1 or 2 (0) 3. How often do you have six or more drinks on one occasion?: Never Total Score: 0 ELVA-7 AMB Questionnaire ELVA-7 Date ELVA - 7 assessed: 11/27/23 Source: Developed by Drs. Reji Yee, Jennifer Majano, Keanu Arce and colleagues, with an educational girma from [email or web address]. Review of Systems Const Denies body aches, Denies chills, Denies fever(s) and Reports poor appetite Eyes Reports no additional complaints ENT Denies dysphagia and Denies odynophagia Card Denies chest pain and Denies dyspnea Resp Denies dyspnea GI Reports abdominal pain (Epigastric), Denies melena, Denies hematochezia, Denies constipation, Denies dysphagia, Reports diarrhea, Reports nausea, Denies odynophagia and Reports vomiting Details: Frequently voiding small amounts of urine Reports nocturia Musc Reports no additional complaints and Denies abnormal gait Skin/Breast Reports system reviewed and no additional complaints, except as documented Neuro Denies abnormal gait Psych Reports no additional complaints Physical exam (Primary Care) Vital Signs: Last Vital Signs Pulse 59 02/28/24 10:49 BP 102/60 02/28/24 10:49 Pulse Ox 97 02/28/24 10:49 Oxygen Delivery Method Room Air 02/28/24 10:49 BMI result Body Mass Index 22.1 Tobacco/Smoking Status: Tobacco use Status Tobacco use date assessed 11/27/23 02/28/24 10:55 Patient Tobacco Use Status Never used Tobacco 02/28/24 10:55 e-Cigarette/Vaping Use Never Used 02/28/24 10:55 Thrive Assessment: Date of Thrive Assessment Date Thrive assessed 11/27/23 02/28/24 10:55 Const General: cooperative, healthy appearing, comfortable and no acute distress Orientation/consciousness: patient oriented x3 HENMT Head: Yes normocephalic Ears: hearing grossly normal bilaterally General nose exam: Normal external nose present Eyes General: appearance normal, both eyes and all related structures Conjunctivae: conjunctivae normal Neck Neck: Yes full ROM and Yes no lymphadenopathy Resp Effort & Inspection: normal respiratory effort Auscultation: clear to auscultation bilaterally, no crackles, no rales, no rhonchi and no wheezes Cardio Rate: regular rate Rhythm: regular rhythm GI Palpation (GI): Soft to palpation, not firm, Tenderness to palpation present (GI) in the epigastrum and suprapubicly, no guarding, not rigid, no masses and No Rebound tenderness present Auscultation: normal bowel sounds General: Yes CVA tenderness on the right Back/Spine/Pelvis Back: CVA tenderness Skin General skin exam: no rashes or lesions noted Neuro General: patient oriented x3 Gait exam (Neuro): Normal gait present Extrem General: Yes normal to inspection, Yes full ROM and No edema Psych Affect: normal affect Attitude: cooperative Insight: Good insight present (Psych) Judgement: Good judgement present (Psych) Assessment and Plan Assessment & Plan (1) Polyuria: Code(s): R35.89 - Other polyuria Plan: Ordered for urinalysis with culture as well as urine . Discussed with patient if her tests come back normal we can consider referral to urology for frequent urination and only voiding very small amounts of urine. (2) Bleeding hemorrhoids: Code(s): K64.9 - Unspecified hemorrhoids Plan: Patient states she often has hemorrhoids prolapse when having a bowel movement and manually pushed into place. Referral to general surgery placed today. (3) Diarrhea: Code(s): R19.7 - Diarrhea, unspecified Plan: Recommend using [id number] fiber supplements to bulk the stools. If this does not improve the diarrhea we can follow up with GI for further evaluation (4) Epigastric pain: Code(s): R10.13 - Epigastric pain Plan: Patient has previous diagnosis of GERD it is not currently being treated. We will trial famotidine for symptoms to see if this improves. We will also use simethicone for symptom management. If symptoms do not improve recommend follow up with GI. (5) Ectopic , tubal: Code(s): O00.109 - Unspecified tubal without intrauterine Plan: Patient recently had 2 ectopic which resulted in salpingectomy last month at [facility]. Per ED recommend follow up with regular OBGYN for review of recent CT findings. Plan This note was constructed using voice recognition software. While every effort has been made to ensure accuracy and lead pressman roto gravure printing, still areas may have been included sometimes these areas may affect the content or meeting of the given symptoms. Total time spent caring for the patient today was 30 minutes. This includes time spent before the visit reviewing the chart, time spent during the visit, and time spent after the visit and documentation. Orders: Orders Ur Preg Test Today R35.89 - Other polyuria UA CC w/rflx Micro + Cult Today R35.89 - Other polyuria Referrals General Surgery Referral K64.9 - Unspecified hemorrhoids Medications: New simethicone (Gas Relief (simethicone)) 125 mg PO BID-QID PRN 20 caps 1RF abdominal distention famotidine (Acid Aircraft Power Plant Assembler (famotidine)) 10 mg PO BEDTIME 30 tabs 0RF Refilled ondansetron 4 mg PO Q8H PRN 10 tabs 2RF nausea and vomiting R71.8 - Other abnormality of red blood cells Discontinued ondansetron Discontinued Reason: Ancillary Entered New Order 4 mg PO Q8H PRN 6 tabs 0RF nausea and vomiting Coding Level of Care Code Est Pt Level 4 (73846) Diagnoses Polyuria R35.89 Bleeding hemorrhoids K64.9 Diarrhea R19.7 Epigastric pain R10.13 Ectopic , tubal O00.109
== END 2024-02-28 11:28 | disposition home or self-care (01) ==
PROVIDERS: PCP Internal Medicine
DX: R35.89 Other polyuria (principal); K64.9 Unspecified hemorrhoids; R19.7 Diarrhea, unspecified; R10.13 Epigastric pain; O00.109 Unspecified tubal pregnancy without intrauterine pregnancy
CPT/HCPCS: 99214

== ENCOUNTER 2024-02-28 11:31 | Outpatient (REF) | payer OTHER, SELFPAY ==
[2024-02-28 14:22] LABS: Appearance Urine Clear; Color Urine Yellow; Glucose Urine UA Negative (Negative); Leukocyte Esterase Urine Negative (Negative); Nitrite Urine Negative (Negative); PH 7.5 (5.0-9.0); Specific Gravity - Urine 1.015 (1.005-1.025); Urine Blood Negative (Negative); Urine Ketones Negative (Negative); Urine Protein Negative (Neg-Trace)
[2024-02-28 14:23] LABS: Urine Pregnancy NEGATIVE (NEGATIVE)
[2024-02-28 14:24] LABS: UPreg QC Valid YES
== END 2024-02-28 11:32 | disposition home or self-care (01) ==
LOC: HO.LAB 11:31
DX: R35.89 Other polyuria (principal)
CPT/HCPCS: 81003; 81025

== ENCOUNTER 2024-03-04 12:05 | Outpatient (AMB) | payer OTHER, SELFPAY ==
--- NOTE | 2024-03-04 12:15 | MHC.OFFVIS ---
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 Complaining of vulvovaginal discharge associated with itching and no foul odor Last Pap smear was in 01/13 was negative [facility] Medical History (Updated 03/04/24 @ 12:30 by Roby Eid MD) Anxiety and depression Cough Cough due to LYNN inhibitor Seasonal allergies Low back pain Migraine with aura Asthma Surgical History (Updated 03/04/24 @ 12:24 by Roby Eid MD) History of salpingectomy H/O colonoscopy Family History Paternal Grandmother Breast CA Mother Crohn disease Father Migraine Brother Bipolar 1 disorder Maternal Grandmother Heart disease Maternal Aunt Colon cancer Other Mental health disorder Social History Housing: Apartment Alcohol intake: never Patient Tobacco Use Status: Never used Tobacco e-Cigarette/Vaping Use: Never Used Second Hand Smoke Exposure: No Substance Use Type: Marijuana service: No Current occupational status: employed 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 Current occupational exposures/hazards: No Sexual orientation: Straight/Heterosexual Gender identity: Female Cognitive needs: No Hearing needs: No Vision needs: No Female Reproductive History Menstrual Age of Menarche: 12 Date of last menstrual period: 02/03/24 Date of last pap smear: 01/07/21 Review of Systems Const All systems reviewed & are unremarkable except as noted in HPI and below Card Reports as per HPI Resp Reports as per HPI GI Reports as per HPI and Reports no additional complaints Reports as per HPI Physical Exam Vital Signs: Last Vital Signs BP 106/60 03/04/24 12:16 BMI result Body Mass Index 21.9 Const General: cooperative, healthy appearing and comfortable Chest Chest palpation & inspection: normal inspection of the chest and normal palpation of entire chest wall Breast/axilla inspection: normal inspection of the breasts and normal inspection of the axillae Breast/axilla palpation: normal palpation of the breasts, normal palpation of the axillae and no axillary lymphadenopathy Resp Effort & Inspection: normal respiratory effort Auscultation: clear to auscultation bilaterally Percussion: percussion normal Cardio Palpation: normal PMI Rate: regular rate Rhythm: regular rhythm Heart sounds: no murmurs and no rubs Peripheral pulses: Peripheral pulses 2+ throughout GI Inspection: Yes normal to inspection Palpation (GI): Soft to palpation, nontender, no guarding, not rigid and No hepatosplenomegaly present Percussion: Yes normal to percussion Auscultation: normal bowel sounds Rectal Exam - Female: deferred General: Yes bladder normal to palpation External Female Exam: No lesion Speculum Exam - Vagina: normal appearance of the vagina, normal palpation, normal vaginal discharge and not erythematous Speculum Exam - Cervix: normal appearance of the cervix and normal palpation Bimanual exam- vagina & uterus: normal bimanual exam, normal palpation, uterine size normal, bladder normal to palpation, consistency normal and normal palpation Bimanual Exam- Adnexa, other: normal adnexae, no masses and no tenderness Assessment & Plan Assessment & Plan (1) Well woman exam: Code(s): Z01.419 - Encounter for gynecological examination (general) (routine) without abnormal findings Category: Medical Plan: Pap smear done. Screening GC/CT taken Counseled the patient about the recommended dietary allowance of 1000 mg of Calcium & 600 IU of vitamin D. The patient was instructed to perform monthly self-breast exams and to schedule an annual exam in a year; All questions answered and the patient verbalized understanding. Instructed the patient to schedule annual exam in a year (2) Vulvovaginitis: Code(s): N76.0 - Acute vaginitis Category: Medical Plan: GC/CT, Bacterial Vaginosis panel taken, Terazol 0.8% q.h.s. for 3 days was sent to the patient's pharmacy. The patient was instructed to call if symptoms don't improve in 48 hours. Orders: Orders CT NG by PCR Today N76.0 - Acute vaginitis Bacterial Vaginosis Panel Today N76.0 - Acute vaginitis PAP rfx HPV E6/E7 and 16 18/45 Today Z01.419 - Encounter for gynecological examination (general) (routine) without abnormal findings Medications: New terconazole 0.8% 1 appful vaginal BEDTIME 3 days 20 grams 0RF Coding Level of Care Code Est Pt Prev Care 18-39y(57781) Diagnoses Well woman exam Z01.419 Vulvovaginitis N76.0
[2024-03-04 12:16] VITALS: BP 106/60; BMI 21.9
== END 2024-03-04 12:31 | disposition home or self-care (01) ==
LOC: HO.HWS 12:05
PROVIDERS: PCP Internal Medicine; Visit Provider Obstetrics & Gynecology
DX: Z01.419 Encounter for gynecological examination (general) (routine) without abnormal findings (principal); N76.0 Acute vaginitis
CPT/HCPCS: 99395

== ENCOUNTER 2024-03-04 12:05 | Outpatient (REF) | payer OTHER, SELFPAY ==
[2024-03-04 15:28] LABS: Bacterial Vaginosis PCR NEGATIVE (Negative); Candida Group PCR NOT DETECTED (Not Detect); Candida glab krusei PCR NOT DETECTED (Not Detect); Trichomonas vaginalis PCR NOT DETECTED (Not Detect)
[2024-03-04 15:57] LABS: CT PCR NOT DETECTED (Not Detect.); NG PCR NOT DETECTED (Not Detect.)
== END 2024-03-04 12:06 | disposition home or self-care (01) ==
LOC: HO.LNP 12:05
PROVIDERS: PCP Internal Medicine; Visit Provider Obstetrics & Gynecology
DX: Z01.419 Encounter for gynecological examination (general) (routine) without abnormal findings (principal); N76.0 Acute vaginitis
CPT/HCPCS: 0352U; 87491; 87591; 87625; 88175; 99395

== ENCOUNTER 2024-03-11 11:32 | Outpatient (REF) | payer OTHER, SELFPAY ==
[2024-03-11 13:18] LABS: MANUAL DIFF FLAG NO
[2024-03-11 13:26] LABS: Basophils Percent Auto 0.6 % (0-2); Eosinophils Absolute Auto 0.1 X10*3/uL (0.0-0.4); Eosinophils Percent Auto 1.9 % (0-4); Hematocrit 42.7 % (37.0-47.0); Hemoglobin 14.4 g/dl (12.0-16.0); Imm Gran Abs Auto 0.01 X10*3/uL (0.00-0.03); Imm Gran Pct Auto 0.2 % (0.0-0.4); Lymphocytes Absolute Auto 2.4 X10*3/uL (1.2-4.9); Lymphocytes Percent Auto 38.6 % (20-40); Mean Corpuscular HGB Conc 33.7 g/dl (31.0-35.0); Mean Corpuscular Hemoglobin 27.7 pg (27.0-33.0); Mean Corpuscular Volume 82.1 fL (80.0-98.0); Mean Platelet Volume 10.8 fL (9.4-12.3); Monocytes Absolute Auto 0.4 X10*3/uL (0.1-1.2); Monocytes Percent Auto 5.6 % (2-11); Neutrophils Absolute Auto 3.3 x10*3/uL (2.0-8.3); Neutrophils Percent Auto 53.1 % (45-73); Platelet Count 256 X10*3/uL (160-400); Red Cell Distribution Width 12.8 % (11.0-16.0); White Blood Count 6.2 X10*3/uL (4.8-10.8)
[2024-03-11 13:49] LABS: Alanine Aminotransferase 13 U/L (0-31); Albumin Level 4.6 g/dL (3.5-5.0); Alkaline Phosphatase 69 U/L (39-117); Aspartate Amino Transferase 18 U/L (5-31); Bilirubin Direct 0.2 mg/dL (0.0-0.5); Bilirubin Total 0.4 mg/dL (0.0-1.0); Lipase 16 U/L (8-78); Total Protein 7.5 g/dL (6.5-8.0)
[2024-03-11 14:04] LABS: TSH reflex Free T4 0.54 uIU/mL (0.32-4.0)
== END 2024-03-11 11:33 | disposition home or self-care (01) ==
LOC: HO.10HDL 11:32
PROVIDERS: Visit Provider Internal Medicine Gastroenterology
DX: K21.9 Gastro-esophageal reflux disease without esophagitis (principal); R19.4 Change in bowel habit
CPT/HCPCS: 36415; 80076; 83690; 84443; 85025

== ENCOUNTER 2024-03-12 10:38 | Outpatient (REF) | payer OTHER, SELFPAY ==
[2024-03-12 11:38] LABS: Leukocytes Stool Qualitative NEGATIVE (NEGATIVE)
[2024-03-12 16:06] LABS: Adenovirus F 40/41 Not Detected (Not Detect.); Astrovirus Not Detected (Not Detect.); Campylobacter Not Detected (Not Detect.); Cryptosporidium Not Detected (Not Detect.); Cyclospora cayetanensis Not Detected (Not Detect.); E. coli EAEC Not Detected (Not Detect.); E. coli EPEC Not Detected (Not Detect.); E. coli ETEC Not Detected (Not Detect.); E. coli STEC Not Detected (Not Detect.); Entamoeba histolytica Not Detected (Not Detect.); Giardia lamblia Not Detected (Not Detect.); Norovirus GI/GII Not Detected (Not Detect.); Plesiomonas shigelloides Not Detected (Not Detect.); Rotavirus A Not Detected (Not Detect.); Salmonella Not Detected (Not Detect.); Sapovirus Not Detected (Not Detect.); Shigella sp./EIEC Not Detected (Not Detect.); Vibrio Not Detected (Not Detect.); Vibrio Cholerae Not Detected (Not Detect.); Yersinia enterocolitica Not Detected (Not Detect.)
== END 2024-03-12 10:39 | disposition home or self-care (01) ==
LOC: HO.LNP 10:38
PROVIDERS: Visit Provider Internal Medicine Gastroenterology
DX: K21.9 Gastro-esophageal reflux disease without esophagitis (principal); R19.4 Change in bowel habit
CPT/HCPCS: 87177; 87209; 87507; 89055

== ENCOUNTER 2024-03-13 11:14 | Outpatient (AMB) | payer OTHER, SELFPAY ==
--- NOTE | 2024-03-13 11:16 | A.OFFVIS_ITS ---
Vital Signs 03/13/24 11:22 Height 5 ft 3 in Weight 123 lb 7.342 oz BMI 21.9 Intake Visit Reasons: Unspecified hemorrhoids Intake Note: This patient presents for Unspecified hemorrhoids. Pt c/o; reports constipation, reports no rectal bleeding, reports occasional straining with bowel movements. Student Life Vice President Required: No Sprinkler Helper: Sprinkler Helper Present (GWENDOLYN Student-Oxa) Accompanied by: Self / Same As Patient Allergies Seasonal Allergies Allergy (Intermediate, Verified 03/13/24 11:23) Itchy Eyes Medication List - Last Reconciled 03/13/24 by Siddhartha Gonzalez MD acetaminophen 500 mg PO Q6H PRN albuterol sulfate 90 mcg/actuation (Ventolin HFA) 2 puffs inhalation Q6H PRN dicyclomine 10 mg PO Q6H PRN famotidine (Acid Underwriting Account Representative (famotidine)) 10 mg PO BEDTIME ibuprofen 600 mg PO Q6H PRN ondansetron 4 mg PO Q8H PRN simethicone (Gas Relief (simethicone)) 125 mg PO BID-QID PRN terconazole 0.8% 1 appful vaginal BEDTIME 3 days HPI HPI Unspecified hemorrhoids: Details: 23-year-old female referred for hemorrhoid issues. She says that she has IBS and has alternating diarrhea and constipation for a few years now. Because of this, she says she often times has burning and pain around her anus. She says he says noticed this for about 2 months more or less. She denies any bleeding She thinks that these are her hemorrhoids causing her problems so she was referred to me She is seeing a gate technician for her IBS. [facility] Medical History (Updated 03/13/24 @ 11:40 by Siddhartha Gonzalez MD) External hemorrhoids with complication Anxiety and depression Cough Cough due to LYNN inhibitor Seasonal allergies Low back pain Migraine with aura Asthma Surgical History History of salpingectomy H/O colonoscopy Family History Paternal Grandmother Breast CA Mother Crohn disease Father Migraine Brother Bipolar 1 disorder Maternal Grandmother Heart disease Maternal Aunt Colon cancer Other Mental health disorder Social History Housing: Apartment Alcohol intake: never Patient Tobacco Use Status: Never used Tobacco e-Cigarette/Vaping Use: Never Used Second Hand Smoke Exposure: No Substance Use Type: Marijuana service: No Current occupational status: employed 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 Current occupational exposures/hazards: No Sexual orientation: Straight/Heterosexual Gender identity: Female Cognitive needs: No Hearing needs: No Vision needs: No Female Reproductive History Menstrual Age of Menarche: 12 Review of Systems Const Denies chills and Denies fever(s) Card Denies chest pain, Denies dyspnea and Denies dyspnea on exertion Resp Denies cough, Denies dyspnea and Denies dyspnea on exertion GI Details: Has alternating diarrhea and constipation Denies hematochezia and Denies change in bowel habits Denies hematuria Musc Denies back pain and Denies limited range of motion Neuro Denies focal weakness and Denies convulsions Psych Denies depression and Denies mood swings Physical Exam Vital Signs: BMI result Body Mass Index 21.9 Const General: comfortable and no acute distress Orientation/consciousness: patient oriented x3 Neck Neck: Yes no lymphadenopathy Resp Auscultation: clear to auscultation bilaterally Cardio Rhythm: regular rhythm GI Other: Rectal exam shows an external hemorrhoid on the anterior aspect, moderate-sized, non thrombosed, non inflamed Palpation (GI): Soft to palpation, nontender and no guarding Neuro General: patient oriented x3 Office Procedures Anoscopy She was in lianne-knife position. The anoscope was gently inserted. A full examination of the anal canal was done. There were note of some small internal hemorrhoids. There were no lesions seen in the anal canal. There was no fissure or ulceration. There was no induration on digital exam. There was no bleeding. Again, the external hemorrhoid anteriorly was noted [id number] Assessment & Plan Assessment & Plan (1) External hemorrhoids with complication: Code(s): K64.4 - Residual hemorrhoidal skin tags Category: Medical Plan: She describes periodic burning pain of her external hemorrhoids. This is bro ught on by her frequent diarrhea and constipation because of her IBS I would not recommend hemorrhoid surgery at this time. I will start her on Calmoseptine for symptomatic relief of her burning pain. I told her that she has minimal symptoms regards to hemorrhoids and the hemorrhoid surgery involves significant pain postoperatively She seems to be comfortable with the plan. She can follow up with me on a p.r.n. basis. I emphasized to her that good control of her IBS we will be gan to control of her hemorrhoid symptoms as well. Coding Level of Care Code New Pt Level 3 (83802) Diagnoses External hemorrhoids with complication K64.4 CPT Codes Details - CPT: 80088-[id number] ([id number])
[2024-03-13 11:22] VITALS: BMI 21.9
== END 2024-03-13 11:37 | disposition home or self-care (01) ==
PROVIDERS: PCP Internal Medicine; Visit Provider Surgery
DX: K64.4 Residual hemorrhoidal skin tags (principal)
CPT/HCPCS: 46600; 99203

== ENCOUNTER → 2024-03-13 11:14 | Outpatient (BNVA) | payer OTHER, SELFPAY | PROVIDERS: PCP Internal Medicine; Visit Provider Surgery | DX: K64.4 Residual hemorrhoidal skin tags (principal) | CPT/HCPCS: 46600; 99202 ==

== ENCOUNTER 2024-03-20 21:37 | Emergency (ER) | payer OTHER, SELFPAY ==
[2024-03-20 21:39] VITALS: BP 110/71; PULSE 98; RESP 16; TEMP 37; O2SAT 98; BMI 22.1
--- NOTE | 2024-03-20 21:58 | MHC.EDTECH ---
Patient brought into triage area,labs,sars/flu/rsv,and urine obtained and sent to lab.
[2024-03-20 22:09] LABS: MANUAL DIFF FLAG NO
[2024-03-20 22:15] LABS: Basophils Percent Auto 0.3 % (0-2); Eosinophils Absolute Auto 0.1 X10*3/uL (0.0-0.4); Eosinophils Percent Auto 1.2 % (0-4); Hematocrit 40.1 % (37.0-47.0); Hemoglobin 14.3 g/dl (12.0-16.0); Imm Gran Abs Auto 0.02 X10*3/uL (0.00-0.03); Imm Gran Pct Auto 0.3 % (0.0-0.4); Lymphocytes Absolute Auto 1.4 X10*3/uL (1.2-4.9); Mean Corpuscular HGB Conc 35.7 g/dl (31.0-35.0); Mean Corpuscular Hemoglobin 28.4 pg (27.0-33.0); Mean Corpuscular Volume 79.7 fL (80.0-98.0); Mean Platelet Volume 10.2 fL (9.4-12.3); Monocytes Absolute Auto 0.6 X10*3/uL (0.1-1.2); Monocytes Percent Auto 10.5 % (2-11); Neutrophils Absolute Auto 3.8 x10*3/uL (2.0-8.3); Neutrophils Percent Auto 63.7 % (45-73); Platelet Count 241 X10*3/uL (160-400); Red Blood Count 5.03 X10*6/uL (4.20-5.50); Red Cell Distribution Width 12.7 % (11.0-16.0); White Blood Count 5.9 X10*3/uL (4.8-10.8)
[2024-03-20 22:18] LABS: Appearance Urine Clear; Color Urine Yellow; Glucose Urine UA Negative (Negative); Leukocyte Esterase Urine Negative (Negative); Nitrite Urine Negative (Negative); PH 6.5 (5.0-9.0); Specific Gravity - Urine 1.025 (1.005-1.025); Urine Blood Negative (Negative); Urine Ketones Trace mg/dL (Negative); Urine Protein Negative (Neg-Trace)
[2024-03-20 22:19] LABS: UPreg QC Valid YES; Urine Pregnancy NEGATIVE (NEGATIVE)
[2024-03-20 22:24] LABS: Alanine Aminotransferase 13 U/L (0-31); Albumin Level 4.5 g/dL (3.5-5.0); Alkaline Phosphatase 70 U/L (39-117); Anion Gap 15 (12-20); Aspartate Amino Transferase 15 U/L (5-31); Bilirubin Total 0.4 mg/dL (0.0-1.0); Blood Urea Nitrogen 5 mg/dL (9-16); Calcium 9.2 mg/dL (8.4-10.2); Carbon Dioxide 23 mmol/L (22-29); Chloride 106 mmol/L (96-108); Creatinine Clr Calc Pharmacy 102.5; Estimated Glomerular Filt Rate > 60; Glucose Random 113 mg/dL (60-115); Potassium 3.3 mmol/L (3.3-5.1); Sodium 141 mmol/L (135-145); Total Protein 7.4 g/dL (6.5-8.0)
[2024-03-20 22:49] LABS: Influenza A PCR NEGATIVE (Negative); Influenza B PCR NEGATIVE (Negative); Resp Syncy Virus RNA Qual PCR NEGATIVE (Negative); SARS COV2 PCR INHOUSE POSITIVE (Negative)
--- NOTE | 2024-03-21 00:01 | ED_ITS ---
HPI - General Adult General Chief complaint: General Medical Stated complaint: FLU? R EAR PAIN, VOMITING Time Seen by Provider: 03/21/24 00:00 Source: patient Mode of arrival: ambulatory Limitations: no limitations History of Present Illness ED Provider: Dr. Cevallos HPI narrative: 23yo female with hx of ectopic , PCOS, IBS presents with vomiting, weakness, chest pain, ear and throat pain for 1 day. Patient was at the [facility] recently. Related Data Home Medications ?Medication ?Instructions ?Recorded ?Confirmed acetaminophen 500 mg tablet 500 mg PO Q6H PRN pain 04/04/23 03/13/24 albuterol sulfate 90 mcg/actuation 2 puff inhalation Q6H PRN wheezing 04/04/23 03/13/24 aerosol inhaler (Ventolin HFA) ibuprofen 600 mg tablet 600 mg PO Q6H PRN Pain 10/18/23 03/13/24 dicyclomine 10 mg capsule 10 mg PO Q6H PRN 11/27/23 03/13/24 Previous Rx's ?Medication ?Instructions ?Recorded famotidine 10 mg tablet (Acid 10 mg PO BEDTIME #30 tabs 02/28/24 Hydroelectric Operator (famotidine)) ondansetron 4 mg disintegrating 4 mg PO Q8H PRN nausea and 02/28/24 tablet vomiting #10 tabs simethicone 125 mg capsule (Gas 125 mg PO BID-QID PRN abdominal 02/28/24 Relief (simethicone)) distention #20 caps terconazole 0.8 % vaginal cream 1 appful vaginal BEDTIME 3 days 03/04/24 #20 grams menthol 0.44 %-zinc oxide 20.6 % 1 appl topical QID PRN hemorrhoids 03/13/24 topical ointment (Calmoseptine) #113 grams naproxen 500 mg tablet (Naprosyn) 500 mg PO BID #20 tabs 03/21/24 ondansetron 4 mg disintegrating 4 mg PO Q8H 4 days #12 tabs 03/21/24 tablet Allergies Allergy/AdvReac Type Severity Reaction Status Date / Time Seasonal Allergies Allergy Intermediate Itchy Eyes Verified 03/20/24 21:42 Review of Systems 2 Review of Systems: Yes all other systems are reviewed and are negative Neurologic: Denies Sensory deficit (Neuro) PMFSH Past Medical History Medical History External hemorrhoids with complication Anxiety and depression Cough Cough due to LYNN inhibitor Seasonal allergies Low back pain Migraine with aura Asthma Surgical History History of salpingectomy H/O colonoscopy Family History Family History Paternal Grandmother Breast CA Mother Crohn disease Father Migraine Brother Bipolar 1 disorder Maternal Grandmother Heart disease Maternal Aunt Colon cancer Other Mental health disorder Social History Social History Housing: Apartment Alcohol intake: never Patient Tobacco Use Status: Never used Tobacco e-Cigarette/Vaping Use: Never Used Second Hand Smoke Exposure: No Substance Use Type: Marijuana Advance Directives: No Advance Directives Information Provided: No Do you have a plan to hurt others: No Plan service: No Current occupational status: employed 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 Current occupational exposures/hazards: No Sexual orientation: Straight/Heterosexual Gender identity: Female Cognitive needs: No Hearing needs: No Vision needs: No Physical Exam ED Vital Signs: Vital Signs - 24 hr 03/20/24 21:39 Temperature 98.6 F Pulse Rate 98 Respiratory Rate 16 Blood Pressure 110/71 Pulse Oximetry 98 Oxygen Delivery Method Room Air BMI result Body Mass Index 22.1 Const Other: very anxious General: healthy appearing Nutritional Appearance: average body habitus Orientation/consciousness: oriented to person and patient oriented x3 Limitations: no limitations HENMT Head: Yes normal to inspection Ears: external ears normal General nose exam: Normal external nose present Mouth: Normal oral and palatal mucosa present and oropharynx normal Throat: Yes posterior oropharynx normal Eyes General: appearance normal, both eyes and all related structures Neck Neck: Yes normal visual inspection Chest Chest palpation & inspection: normal inspection of the chest Resp Auscultation: clear to auscultation bilaterally Cardio Jugular venous distension: no JVD Rate: regular rate Rhythm: regular rhythm Heart sounds: S1 normal heart sound present and S2 normal heart sound present GI Inspection: Yes normal to inspection Palpation (GI): Soft to palpation, nontender and No hepatosplenomegaly present Auscultation: normal bowel sounds General: Yes no CVA tenderness Back/Spine/Pelvis Back: no CVA tenderness Skin General skin exam: no rashes or lesions noted Neuro General: oriented to person and patient oriented x3 Cranial nerves: Yes CN's II-XII intact bilaterally Motor exam (neuro): 5/5 motor strength present throughout Sensory Exam: No Sensory deficit (Neuro) Extrem General: Yes normal to inspection Psych Appearance: grossly normal Course Reevaluation(s) Reevaluation #1: physical exam including lungs and ear and abdominal exam all normal, will give toradol shot and zofran SL and dc home Time: 00:09 Medical Decision Making Differential Diagnosis Differential Diagnoses: The differential diagnosis associated with the presentation includes (flu covid, rsv, pneumonia, otitis media, otitis externa) Admission/Observation Consideration of admission/observation: Escalation of care including admission/observation considered (upon arrival patient considered for admission) Lab Data MDM Lab Attestation statement: I reviewed the patient's lab results. 03/20/24 22:04 03/20/24 22:04 Labs: Lab Results 03/20/24 Range/Units 22:04 WBC 5.9 (4.8-10.8) X10*3/uL RBC 5.03 (4.20-5.50) X10*6/uL Hgb 14.3 (12.0-16.0) g/dl Hct 40.1 (37.0-47.0) % MCV 79.7 L (80.0-98.0) fL MCH 28.4 (27.0-33.0) pg MCHC 35.7 H (31.0-35.0) g/dl RDW 12.7 (11.0-16.0) % Plt Count 241 (160-400) X10*3/uL MPV 10.2 (9.4-12.3) fL Immature Gran % (Auto) 0.3 (0.0-0.4) % Neut % (Auto) 63.7 (45-73) % Lymph % (Auto) 24.0 (20-40) % Howell % (Auto) 10.5 (2-11) % Eos % (Auto) 1.2 (0-4) % Baso % (Auto) 0.3 (0-2) % Lymph # (Auto) 1.4 (1.2-4.9) X10*3/uL Howell # (Auto) 0.6 (0.1-1.2) X10*3/uL Eos # (Auto) 0.1 (0.0-0.4) X10*3/uL Baso # (Auto) 0.0 (0.0-0.2) X10*3/uL Abs Immat Gran (auto) 0.02 (0.00-0.03) X10*3/uL Absolute Neuts (auto) 3.8 (2.0-8.3) x10*3/uL Absolute Nucleated RBC 0.000 (0.0-0.012) X10*3/uL Nucleated RBC % (auto) 0.0 (0.0-0.2) /100WBC Sodium 141 (135-145) mmol/L Potassium 3.3 (3.3-5.1) mmol/L Chloride 106 (96-108) mmol/L Carbon Dioxide 23 (22-29) mmol/L Anion Gap 15 (12-20) BUN 5 L (9-16) mg/dL Creatinine 0.70 (0.5-1.4) mg/dL Estim Creat Clear Calc 102.5 Estimated GFR > 60 Random Glucose 113 (60-115) mg/dL Calcium 9.2 (8.4-10.2) mg/dL Total Bilirubin 0.4 (0.0-1.0) mg/dL AST 15 (5-31) U/L ALT 13 (0-31) U/L Alkaline Phosphatase 70 (39-117) U/L Total Protein 7.4 (6.5-8.0) g/dL Albumin 4.5 (3.5-5.0) g/dL Urine Color Yellow Urine Appearance Clear Urine pH 6.5 (5.0-9.0) Ur Specific Tal[place]ott 1.025 (1.005-1.025) Urine Protein Negative (Neg-Trace) mg/dL Urine Glucose (UA) Negative (Negative) mg/dL Urine Ketones Trace (Negative) mg/dL Urine Blood Negative (Negative) Urine Nitrite Negative (Negative) Ur Leukocyte Esterase Negative (Negative) Urine Test NEGATIVE (NEGATIVE) Influenza Type A (PCR) NEGATIVE (Negative) Influenza Type B (PCR) NEGATIVE (Negative) RSV RNA Qual (PCR) NEGATIVE (Negative) SARS-CoV-2 RNA (RT-PCR) POSITIVE A (Negative) Independent Historian Clinical information obtained from an independent historian. History obtained from or confirmed by: Friend Tests considered The following testing was considered but not selected: CXR considered but patient with normal vitals, oxygen and normal physical exam Prescription Management I considered prescription management with: Antibiotic (no evidence of pneumonia or UTI) Discharge Plan Discharge Clinical Impression: COVID-19 Patient Disposition: Home, Self-Care Instructions: COVID-19 (Coronavirus Disease 2019) (ED) Prescriptions: New ondansetron 4 mg tablet,disintegrating 4 mg PO Q8H 4 Days Qty: 12 0RF naproxen [Naprosyn] 500 mg tablet 500 mg PO BID Qty: 20 0RF No Action albuterol sulfate [Ventolin HFA] 90 mcg/actuation HFA aerosol inhaler 2 puff inhalation Q6H PRN (Reason: wheezing) acetaminophen 500 mg tablet 500 mg PO Q6H PRN (Reason: pain) ibuprofen 600 mg tablet 600 mg PO Q6H PRN (Reason: Pain) simethicone [Gas Relief (simethicone)] 125 mg capsule 125 mg PO BID-QID PRN (Reason: abdominal distention) Qty: 20 1RF ondansetron 4 mg tablet,disintegrating 4 mg PO Q8H PRN (Reason: nausea and vomiting) Qty: 10 2RF famotidine [Acid Hydroelectric Operator (famotidine)] 10 mg tablet 10 mg PO BEDTIME Qty: 30 0RF dicyclomine 10 mg capsule 10 mg PO Q6H PRN terconazole 0.8 % cream 1 appful vaginal BEDTIME 3 Days Qty: 20 0RF menthol-zinc oxide [Calmoseptine] 0.44-20.6 % ointment 1 appl topical QID PRN (Reason: hemorrhoids) Qty: 113 2RF Referrals: Po,Neel Henry MD [Primary Care Provider] - Print Language: Armenian
[2024-03-21 00:36] VITALS: BP 121/71; PULSE 101; RESP 18; TEMP 36.9; O2SAT 98
[2024-03-21] MEDS: Ondansetron ODT 4 MG TAB.RAPDIS TRANSLINGU (00:38)
[2024-03-21] MEDS: Ketorolac Tromethamine 60 MG/2 ML VIAL IM (00:38)
[2024-03-21 00:50] VITALS: BP 121/71; PULSE 101; RESP 18; TEMP 36.9; O2SAT 98
== END 2024-03-21 00:45 | disposition home or self-care (01) ==
PROVIDERS: Emergency Provider Emergency Medicine; PCP Internal Medicine
DX: U07.1 COVID-19 (principal); J02.9 Acute pharyngitis, unspecified
CPT/HCPCS: 0241U; 36415; 80053; 81003; 81025; 85025; 99284; J1885

== ENCOUNTER 2024-04-17 13:24 | Outpatient (AMB) | payer OTHER, SELFPAY ==
[2024-04-17 13:26] VITALS: BP 90/62; PULSE 73; O2SAT 98; BMI 21.8
--- NOTE | 2024-04-17 13:26 | MHC.PC.OV ---
Vital Signs 04/17/24 13:26 Height 5 ft 3 in Weight 123 lb BMI 21.8 BP 90/62 Blood Pressure Location Lt brachial Position Sitting Pulse 73 Pulse Source Pulse Oximeter Pulse Oximetry (%) 98 Oxygen Delivery Method Room Air Intake Visit Reasons: easy bruising Metal Or Wood Blocker Required: No Allergies Seasonal Allergies Allergy (Intermediate, Verified 04/17/24 13:29) Itchy Eyes Tobacco use date assessed: 11/27/23 Dental Screening Dental Screen Date: 11/27/23 HPI easy bruising HPI Details 23-year-old female with past medical history of migraine, asthma, PCOS last seen February 2024 coming in for acute problem. Today she tells us she has been having bruises on her legs which started in March after she was diagnosed with COVID in late February. She woke up with multiple bruises on the legs some on the arms. The bruises have been fading since the initial appearance however she does still have some tenderness with the bruises were. [facility] Medical History External hemorrhoids with complication Anxiety and depression Cough Cough due to LYNN inhibitor Seasonal allergies Low back pain Migraine with aura Asthma Surgical History History of salpingectomy H/O colonoscopy Family History Paternal Grandmother Breast CA Mother Crohn disease Father Migraine Brother Bipolar 1 disorder Maternal Grandmother Heart disease Maternal Aunt Colon cancer Other Mental health disorder Social History Housing: Apartment Alcohol intake: never Patient Tobacco Use Status: Never used Tobacco e-Cigarette/Vaping Use: Never Used Second Hand Smoke Exposure: No Substance Use Type: Marijuana service: No Current occupational status: employed 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 Current occupational exposures/hazards: No Sexual orientation: Straight/Heterosexual Gender identity: Female Cognitive needs: No Hearing needs: No Vision needs: No Female Reproductive History Menstrual Age of Menarche: 12 Questionnaire Thrive Questionnaire Date Thrive assessed: 11/27/23 I am a: Patient What is your living situation today?: I have a steady place to live Within the past 12 months, did the food you bought not last and you didn't have the money to get more?: Never true Within the past 12 months, did you worry whether your food would run out before you got money to buy more?: Never true Do you have trouble paying for medicines?: No Do you have trouble getting transportation to medical appointments?: No Do you have trouble paying your heating and electricity bill?: No Do you have trouble taking care of your child, family member or friend?: No Do you have trouble with day-to-day activities such as bathing, preparing meals, shopping, managing finances, etc.?: No Are you currently unemployed and looking for a job?: No Are you interested in more education?: No Please select the resources that you would like help with: None Currently or been in a relationship where the following occur: No concerns reported THRIVE Score: 0 AUDIT C Alcohol Use Questionnaire (AUDIT-C) 1. How often do you have a drink containing alcohol?: Never 2. How many drinks containing alcohol do you have on a typical day when you are drinking?: 1 or 2 (0) 3. How often do you have six or more drinks on one occasion?: Never Total Score: 0 ELVA-7 AMB Questionnaire ELVA-7 Date ELVA - 7 assessed: 11/27/23 Source: Developed by Drs. Reji Yee, Jennifer Majano, Keanu Arce and colleagues, with an educational girma from [employer]. Review of Systems Const Denies chills, Denies fatigue, Denies fever(s) and Denies headache(s) Eyes Reports no additional complaints ENT Denies headache(s) Card Denies chest pain, Denies leg edema, Denies lightheadedness and Denies dyspnea Resp Denies cough and Denies dyspnea GI Denies abdominal pain, Denies bloating, Denies heartburn, Denies nausea and Denies vomiting Reports no additional complaints Musc Reports no additional complaints Skin/Breast Reports system reviewed and no additional complaints, except as documented Neuro Reports no additional complaints and Denies headache(s) Endo Denies fatigue Physical exam (Primary Care) Vital Signs: Last Vital Signs Pulse 73 04/17/24 13:26 BP 90/62 04/17/24 13:26 Pulse Ox 98 04/17/24 13:26 Oxygen Delivery Method Room Air 04/17/24 13:26 BMI result Body Mass Index 21.8 Tobacco/Smoking Status: Tobacco use Status Tobacco use date assessed 11/27/23 04/17/24 13:27 Patient Tobacco Use Status Never used Tobacco 04/17/24 13:27 e-Cigarette/Vaping Use Never Used 04/17/24 13:27 Thrive Assessment: Date of Thrive Assessment Date Thrive assessed 11/27/23 04/17/24 13:27 Currently or been in a relationship where the following occur: No concerns reported Const General: cooperative, healthy appearing, comfortable and no acute distress Orientation/consciousness: patient oriented x3 HENMT Head: Yes normocephalic Ears: hearing grossly normal bilaterally General nose exam: Normal external nose present Eyes General: appearance normal, both eyes and all related structures Conjunctivae: conjunctivae normal Neck Neck: Yes full ROM and Yes no lymphadenopathy Resp Effort & Inspection: normal respiratory effort Auscultation: clear to auscultation bilaterally, no crackles, no rales, no rhonchi and no wheezes Cardio Rate: regular rate Rhythm: regular rhythm Skin General skin exam: no rashes or lesions noted Neuro General: patient oriented x3 Gait exam (Neuro): Normal gait present Extrem General: Yes normal to inspection, Yes full ROM and No edema Psych Affect: normal affect Attitude: cooperative Insight: Good insight present (Psych) Judgement: Good judgement present (Psych) Coding Level of Care Code Est Pt Level 3 (85961) Diagnoses Easy bruising R23.3 GERD (gastroesophageal reflux disease) K21.9 Assessment & Plan Assessment & Plan (1) Easy bruising: Code(s): R23.3 - Spontaneous ecchymoses Category: Medical Plan: Ordered for updated blood work including coagulation studies. Discussed with patient if bruises do not reappear no follow up as needed and continue to monitor symptoms. If workup is negative in bruises continue can consider referral to Hematology. (2) GERD (gastroesophageal reflux disease): Code(s): K21.9 - Gastro-esophageal reflux disease without esophagitis Category: Medical Plan: Avoid trigger foods such as citrus, tomato products, soda, caffeine, spicy foods and other foods that may be irritating to your stomach. Avoid laying flat 3-4 hours after eating and elevate the head of the bed 30 degrees to prevent acid from moving into the esophagus. Continue on current medication regimen finds good benefit in this. Plan This note was constructed using voice recognition software. While every effort has been made to ensure accuracy and cnc mill and lathe operator, still areas may have been included sometimes these areas may affect the content or meeting of the given symptoms. Total time spent caring for the patient today was 30 minutes. This includes time spent before the visit reviewing the chart, time spent during the visit, and time spent after the visit and documentation.
== END 2024-04-17 14:14 | disposition home or self-care (01) ==
PROVIDERS: PCP Internal Medicine
DX: R23.3 Spontaneous ecchymoses (principal); K21.9 Gastro-esophageal reflux disease without esophagitis

== ENCOUNTER 2024-04-17 13:24 | Outpatient (REF) | payer OTHER, SELFPAY ==
[2024-04-17 14:34] LABS: MANUAL DIFF FLAG NO
[2024-04-17 14:40] LABS: Basophils Percent Auto 0.4 % (0-2); Eosinophils Absolute Auto 0.1 X10*3/uL (0.0-0.4); Eosinophils Percent Auto 1.4 % (0-4); Hematocrit 39.3 % (37.0-47.0); Hemoglobin 13.7 g/dl (12.0-16.0); Imm Gran Abs Auto 0.02 X10*3/uL (0.00-0.03); Imm Gran Pct Auto 0.3 % (0.0-0.4); Lymphocytes Absolute Auto 2.1 X10*3/uL (1.2-4.9); Lymphocytes Percent Auto 27.4 % (20-40); Mean Corpuscular HGB Conc 34.9 g/dl (31.0-35.0); Mean Corpuscular Hemoglobin 28.2 pg (27.0-33.0); Mean Corpuscular Volume 80.9 fL (80.0-98.0); Mean Platelet Volume 10.3 fL (9.4-12.3); Monocytes Absolute Auto 0.5 X10*3/uL (0.1-1.2); Monocytes Percent Auto 6.4 % (2-11); Neutrophils Absolute Auto 4.9 x10*3/uL (2.0-8.3); Neutrophils Percent Auto 64.1 % (45-73); Platelet Count 245 X10*3/uL (160-400); Red Blood Count 4.86 X10*6/uL (4.20-5.50); Red Cell Distribution Width 13.1 % (11.0-16.0); White Blood Count 7.7 X10*3/uL (4.8-10.8)
[2024-04-23 01:53] LABS: Vitamin K1 180 pg/mL (130-1500)
[2024-04-23 18:14] LABS: Mixing Study - PT 12.8 sec (9.0-11.5); PTT LA 39 sec (< OR = 40)
== END 2024-04-17 13:25 | disposition home or self-care (01) ==
LOC: HO.LAB 13:24
PROVIDERS: PCP Internal Medicine
DX: R23.3 Spontaneous ecchymoses (principal); K21.9 Gastro-esophageal reflux disease without esophagitis
CPT/HCPCS: 36415; 84597; 85025; 85611; 85732; 99212

== ENCOUNTER 2024-06-12 01:46 | Emergency (ER) | payer OTHER, SELFPAY ==
[2024-06-12 01:51] VITALS: BP 111/56; PULSE 87; RESP 16; TEMP 36.3; O2SAT 100; BMI 22.1
[2024-06-12 02:21] LABS: MANUAL DIFF FLAG NO
[2024-06-12 02:29] LABS: Basophils Percent Auto 0.5 % (0-2); Eosinophils Absolute Auto 0.2 X10*3/uL (0.0-0.4); Eosinophils Percent Auto 2.1 % (0-4); Hematocrit 36.9 % (37.0-47.0); Imm Gran Abs Auto 0.02 X10*3/uL (0.00-0.03); Imm Gran Pct Auto 0.3 % (0.0-0.4); Lymphocytes Absolute Auto 2.8 X10*3/uL (1.2-4.9); Mean Corpuscular HGB Conc 35.2 g/dl (31.0-35.0); Mean Corpuscular Volume 79.5 fL (80.0-98.0); Monocytes Absolute Auto 0.5 X10*3/uL (0.1-1.2); Monocytes Percent Auto 6.7 % (2-11); Neutrophils Absolute Auto 4.4 x10*3/uL (2.0-8.3); Neutrophils Percent Auto 55.4 % (45-73); Platelet Count 251 X10*3/uL (160-400); Red Blood Count 4.64 X10*6/uL (4.20-5.50); White Blood Count 7.9 X10*3/uL (4.8-10.8)
[2024-06-12 02:31] LABS: Appearance Urine Cloudy; Color Urine RED; Glucose Urine UA Negative (Negative); Leukocyte Esterase Urine Trace (Negative); Specific Gravity - Urine >= 1.030 (1.005-1.025); UMIC TRIGGER UACC YES; Urine Blood Large (3+) (Negative); Urine Ketones Trace mg/dL (Negative); Urine Protein 100 (2+) mg/dL (Neg-Trace)
[2024-06-12 02:36] LABS: Albumin Level 4.1 g/dL (3.5-5.0); Anion Gap 14 (12-20); Aspartate Amino Transferase 19 U/L (5-31); Bilirubin Total 0.4 mg/dL (0.0-1.0); Blood Urea Nitrogen 10 mg/dL (9-16); Calcium 9.1 mg/dL (8.4-10.2); Carbon Dioxide 20 mmol/L (22-29); Chloride 107 mmol/L (96-108); Creatinine Clr Calc Pharmacy 99.6; Estimated Glomerular Filt Rate > 60; Glucose Random 168 mg/dL (60-115); Potassium 3.6 mmol/L (3.3-5.1); Sodium 137 mmol/L (135-145); Total Protein 6.7 g/dL (6.5-8.0)
[2024-06-12 02:37] LABS: UPreg QC Valid YES; Urine Pregnancy NEGATIVE (NEGATIVE)
[2024-06-12 02:40] LABS: Bacteria Urine None Seen (None Seen); Hyaline Casts Urine 0-2 /LPF (0-2); Squamous Epithelial Cell Urine 0-2 /HPF (0-2)
[2024-06-12 02:47] VITALS: BP 100/65; PULSE 76; RESP 16; TEMP 37; O2SAT 98
[2024-06-12 02:51] LABS: RBC Urine >20 /HPF (0-2)
[2024-06-12 02:52] LABS: Alanine Aminotransferase 12 U/L (0-31); Alkaline Phosphatase 62 U/L (39-117)
[2024-06-12 02:54] LABS: Nitrite Urine Negative (Negative); UACC Culture Trigger YES
[2024-06-12 04:00] VITALS: BP 114/54; PULSE 65; RESP 16; TEMP 36.5; O2SAT 98
--- NOTE | 2024-06-12 04:44 | ED_ITS ---
HPI - Female Genitourinary General Chief complaint: Vaginal Bleeding Stated complaint: vag bleeding Time Seen by Provider: 06/12/24 04:12 Source: patient Mode of arrival: ambulatory Limitations: no limitations History of Present Illness ED Provider: HPI Narrative: Patient with history of right tubal 12/31/2023 had LMP on 05/27 which lasted for 5 days comes back as she started bleeding again today while taking shower denies any urinary symptoms worried about she might be again no active bleeding at this time no blood clots Related Data Home Medications ?Medication ?Instructions ?Recorded ?Confirmed acetaminophen 500 mg tablet 500 mg PO Q6H PRN pain 04/04/23 04/17/24 albuterol sulfate 90 mcg/actuation 2 puff inhalation Q6H PRN wheezing 04/04/23 04/17/24 aerosol inhaler (Ventolin HFA) dicyclomine 10 mg capsule 10 mg PO Q6H PRN 11/27/23 04/17/24 Previous Rx's ?Medication ?Instructions ?Recorded famotidine 10 mg tablet (Acid 10 mg PO BEDTIME #30 tabs 02/28/24 Line Supervisor (famotidine)) simethicone 125 mg capsule (Gas 125 mg PO BID-QID PRN abdominal 02/28/24 Relief (simethicone)) distention #20 caps terconazole 0.8 % vaginal cream 1 appful vaginal BEDTIME 3 days 03/04/24 #20 grams menthol 0.44 %-zinc oxide 20.6 % 1 appl topical QID PRN hemorrhoids 03/13/24 topical ointment (Calmoseptine) #113 grams naproxen 500 mg tablet (Naprosyn) 500 mg PO BID #20 tabs 03/21/24 ondansetron 4 mg disintegrating 4 mg PO Q8H 4 days #12 tabs 04/17/24 tablet Allergies Allergy/AdvReac Type Severity Reaction Status Date / Time Seasonal Allergies Allergy Intermediate Itchy Eyes Verified 06/12/24 01:53 Review of Systems 2 Review of Systems: Yes all other systems are reviewed and are negative PMFSH Past Medical History Medical History External hemorrhoids with complication Anxiety and depression Cough Cough due to LYNN inhibitor Seasonal allergies Low back pain Migraine with aura Asthma Surgical History History of salpingectomy H/O colonoscopy Family History Family History Paternal Grandmother Breast CA Mother Crohn disease Father Migraine Brother Bipolar 1 disorder Maternal Grandmother Heart disease Maternal Aunt Colon cancer Other Mental health disorder Social History Social History Housing: Apartment Alcohol intake: never Patient Tobacco Use Status: Never used Tobacco Smoked in Last 30 Days: No e-Cigarette/Vaping Use: Never Used Second Hand Smoke Exposure: No Use of substances other than those prescribed or required for medical reasons: Yes Substance Use Type: Marijuana Advance Directives: No Do you have a plan to hurt others: No Plan Patient : No service: No Current occupational status: employed 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 Oriented X3. No acute distress. Eyes: No pallor or icterus ENT: Pharynx normal. Oral Mucosa moist Neck: Normal inspection. Neck supple. CVS: Normal heart rate and rhythm. Pulses normal. Respiratory: No respiratory distress. Equal air entry bilateral, no wheezing/rales/rhonchi Abdomen: Soft and nontender. Bowel sounds are present, no mass palpable, no CVA tenderness Skin: Skin warm and dry. Normal skin color. Normal skin turgor. Extremities: No lower extremity edema. No calf tenderness Neuro: Oriented X 3. No motor deficit. Medical Decision Making Medical Decision Making [facility] Narrative: Patient with dysfunctional uterine bleed purulent and serum patient is not bleeding actively at this time will discharge patient home advised to follow up with supervisor newspaper deliveries Lab Data MDM Lab Attestation statement: I reviewed the patient's lab results. 06/12/24 02:18 06/12/24 02:18 Labs: Lab Results 06/12/24 06/12/24 Range/Units 02:18 02:22 WBC 7.9 (4.8-10.8) X10*3/uL RBC 4.64 (4.20-5.50) X10*6/uL Hgb 13.0 (12.0-16.0) g/dl Hct 36.9 L (37.0-47.0) % MCV 79.5 L (80.0-98.0) fL MCH 28.0 (27.0-33.0) pg MCHC 35.2 H (31.0-35.0) g/dl RDW 13.0 (11.0-16.0) % Plt Count 251 (160-400) X10*3/uL MPV 10.0 (9.4-12.3) fL Immature Gran % (Auto) 0.3 (0.0-0.4) % Neut % (Auto) 55.4 (45-73) % Lymph % (Auto) 35.0 (20-40) % [place] % (Auto) 6.7 (2-11) % Eos % (Auto) 2.1 (0-4) % Baso % (Auto) 0.5 (0-2) % Lymph # (Auto) 2.8 (1.2-4.9) X10*3/uL [place] # (Auto) 0.5 (0.1-1.2) X10*3/uL Eos # (Auto) 0.2 (0.0-0.4) X10*3/uL Baso # (Auto) 0.0 (0.0-0.2) X10*3/uL Abs Immat Gran (auto) 0.02 (0.00-0.03) X10*3/uL Absolute Neuts (auto) 4.4 (2.0-8.3) x10*3/uL Absolute Nucleated RBC 0.000 (0.0-0.012) X10*3/uL Nucleated RBC % (auto) 0.0 (0.0-0.2) /100WBC Sodium 137 (135-145) mmol/L Potassium 3.6 (3.3-5.1) mmol/L Chloride 107 (96-108) mmol/L Carbon Dioxide 20 L (22-29) mmol/L Anion Gap 14 (12-20) BUN 10 (9-16) mg/dL Creatinine 0.72 (0.5-1.4) mg/dL Estim Creat Clear Calc 99.6 Estimated GFR > 60 Random Glucose 168 H (60-115) mg/dL Calcium 9.1 (8.4-10.2) mg/dL Total Bilirubin 0.4 (0.0-1.0) mg/dL AST 19 (5-31) U/L ALT 12 (0-31) U/L Alkaline Phosphatase 62 (39-117) U/L Total Protein 6.7 (6.5-8.0) g/dL Albumin 4.1 (3.5-5.0) g/dL Beta HCG, Quant < 2 mIU/mL Urine Color RED Urine Appearance Cloudy Urine pH 5.0 (5.0-9.0) Ur Specific [place] >= 1.030 H (1.005-1.025) Urine Protein 100 (2+) H (Neg-Trace) mg/dL Urine Glucose (UA) Negative (Negative) mg/dL Urine Ketones Trace (Negative) mg/dL Urine Blood Large (3+) H (Negative) Urine Nitrite Negative (Negative) Ur Leukocyte Esterase Trace H (Negative) Urine RBC >20 H (0-2) /HPF Urine WBC 11-20 H (0-5) /HPF Ur Squamous Epith Cells 0-2 (0-2) /HPF Urine Bacteria None Seen (None Seen) Hyaline Casts 0-2 (0-2) /LPF Urine Test NEGATIVE (NEGATIVE) Discharge Plan Discharge Clinical Impression: Dysfunctional uterine bleeding Patient Disposition: Home, Self-Care Instructions: Dysfunctional Uterine Bleeding (ED) Additional Instructions: Follow up with your supervisor newspaper deliveries Your test is negative today Prescriptions: No Action naproxen [Naprosyn] 500 mg tablet 500 mg PO BID Qty: 20 0RF albuterol sulfate [Ventolin HFA] 90 mcg/actuation HFA aerosol inhaler 2 puff inhalation Q6H PRN (Reason: wheezing) acetaminophen 500 mg tablet 500 mg PO Q6H PRN (Reason: pain) simethicone [Gas Relief (simethicone)] 125 mg capsule 125 mg PO BID-QID PRN (Reason: abdominal distention) Qty: 20 1RF famotidine [Acid Line Supervisor (famotidine)] 10 mg tablet 10 mg PO BEDTIME Qty: 30 0RF dicyclomine 10 mg capsule 10 mg PO Q6H PRN terconazole 0.8 % cream 1 appful vaginal BEDTIME 3 Days Qty: 20 0RF menthol-zinc oxide [Calmoseptine] 0.44-20.6 % ointment 1 appl topical QID PRN (Reason: hemorrhoids) Qty: 113 2RF ondansetron 4 mg tablet,disintegrating 4 mg PO Q8H 4 Days Qty: 12 0RF Interventions: ED Discharge Assessment Last Done: 06/12/24 06:04 Discharge Date/Time: 06/12/24 06:05 Print Language: Korean
[2024-06-12 05:42] LABS: HCG Quantitative < 2 mIU/mL
[2024-06-12 05:48] VITALS: BP 100/48; PULSE 83; RESP 16; TEMP 36.6; O2SAT 99
[2024-06-12 06:04] VITALS: BP 100/48; PULSE 83; RESP 16; TEMP 36.6; O2SAT 99
== END 2024-06-12 06:05 | disposition home or self-care (01) ==
PROVIDERS: Emergency Provider Internal Medicine; PCP Internal Medicine
DX: N93.8 Other specified abnormal uterine and vaginal bleeding (principal); Z79.899 Other long term (current) drug therapy
CPT/HCPCS: 36415; 80053; 81001; 81025; 84702; 85025; 87086; 99283; 99284

== ENCOUNTER 2024-08-06 06:36 | Emergency (ER) | payer OTHER, SELFPAY ==
--- NOTE | ~2024-08-06 | XR_ITS ---
EXAMINATION: XR CHEST CLINICAL INFORMATION: cough +flu COMPARISON: None available. TECHNIQUE: Frontal view of the chest was obtained. FINDINGS: No significant abnormality is noted involving the heart, lungs, mediastinum, bony thorax or soft tissues. XR/XR chest 1V IMPRESSION: Normal chest. Electronically signed by: Fidel De La Garza MD 08/06/2024 04:25 PM [facility]
[2024-08-06 06:40] VITALS: BP 100/61; PULSE 91; RESP 17; TEMP 36.6; O2SAT 100; BMI 21.3
[2024-08-06] MEDS: Ondansetron ODT 4 MG TAB.RAPDIS TRANSLINGU (06:46)
--- OUTSIDE RECORDS SUMMARY | 2024-08-06 07:11 | XMS_ITS ---
Author Organization [facility] Address [address] [place] [address] Care Team Providers Care Creative Services Director Name Role Phone Po Neel BHARDWAJ Primary Care Provider Ananya Lu Jr, Paul Sandy REASON FOR VISIT patient called looking for an appt Encounters Encounter Location Date Provider Diagnosis [facility] [address] [place] [address] 03/01/2024 Paul Lu Jr PLAN OF TREATMENT Next Appt Details Provider Name:Paul savage Jr, 09/09/2024 10:00:00 AM, [address], [address], [place], [address],
--- OUTSIDE RECORDS SUMMARY | 2024-08-06 07:11 | XMS_ITS | Clinical Summary ---
Author Organization [facility] Address [address] [place] [address] Phone Care Team Providers Care Renderer Name Role Phone Unavailable Primary Care Provider Unavailabl e Allergies No known active allergies Medications levofloxacin 500 MG tablet 0 Active ibuprofen 600 MG tablet TK 1 T PO QID WF OR MILK FOR 7 DAYS PRN 2 0 Active metroNIDAZOLE 500 MG tablet 0 Active ondansetron ODT 4 MG disintegrating tablet DISSOLVE 1 TABLET PO EVERY 6 HOURS PRN FOR NAUSEA/VOMITI NG 0 0 Active Isibloom 0.15-30 MG-MCG per tablet TK 1 T PO QD 2 0 Active Omeprazole 20 MG tablet delayed-release TAKE 1 CAPUSLE PO 0 Active albuterol HFA (ProAir HFA) 108 (90 Base) MCG/ACT inhalerIndications :Mild intermittent asthma with acute exacerbation Inhale 2 puffs every 6 (six) hours as needed for wheezing or shortness of breath. 1 Units 0 Active Spacer/Aero-Holdin g Chambers (AeroChamber Plus Flako-Vu) miscIndications:Mi ld intermittent asthma with acute exacerbation Ut dict 1 each 3 0 Active doxycycline 100 MG tablet TAKE 1 TABLET BY MOUTH EVERY 12 HOURS FOR 12 DAYS. START TONIGHT (11/20) WITH DINNER AND CONTINUE EVERY 12 HOURS WITH BREAKFAST AND DINNER 1 Active acetaminophen 325 MG tablet Take 650 mg by mouth every 6 (six) hours as needed. for pain 1 Active cetirizine 10 MG tabletIndications: Well adult exam TAKE 1 TABLET BY MOUTH EVERY DAY NEEDED FOR ALLERGIES 30 tablet 2 1 Active Active Problems Problem Noted Date Diagnosed Date Weight loss 12/01/2020 Overview (12/01/2020): 12/01/2020 (age 20yr): weight loss 19 lbs in 7 months. Pt reports decreased appetite due to stress: Health, Relationships, family. Not working, not going to school. Home all day with family, everyone always has an opinion, treats her like a child. Would like to see a therapist. Assessment & Plan (12/01/2020 12:39 PM EDT): 12/01/2020 (age 20yr): weight loss 19 lbs in 7 months. Pt reports decreased appetite due to stress: Health, Relationships, family. Not working, not going to school. Home all day with family, everyone always has an opinion, treats her like a child. Would like to see a therapist. - referred to therapy today. Weight loss 12/01/2020 Overview (12/01/2020): 12/01/2020 (age 20yr): signi Pelvic pain 05/12/2020 Overview (12/01/2020): 12/01/2020 (age 20yr): Recurrent, extensive work up completed over the course of the last2 years. I suspected constipation at evaluation on 05/12/2020 but refered to GI . Labs as xray normal 06/2020. 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 Oneal not yet been evaluated by BAR POINTER. First episode 07/2019: - 08/14/2019: In ED CT abd/pelvis with IV contrast normal. ??Chemistries icnluding lipase, cbc normal. ??HCG neg. - 08/17/2019 Diagnosed in the office with PID and treated. G/C negative. Transvaginal ultrasound was normal. D iagnosed with constipation, treated with miralax. - 08/20/2019 Sent back to ED by BAR POINTER, second transvaginal U/S was done. - 08/29/2019: Symptoms totally resolved, pt on miralax Second episode: 03/2020 - mid March: She has been to ED ()where she was given IVF for dehydration and had some bloodwork. She was diagnosed with gastroenteritis and discharged home - She saw her OB 04/22. She was diagnosed with UTI (not PID, she says) and was given metronidazole. She did have an ultrasound at [facility] on 04/29 and has not heard results - 05/04/2020: Office visit here in extreme pain, sent Back to ED where she left without completing her visit. 07/23/2020: Labs and KUB normal. GI apt upcoming 07/30/2020 07/30/2020: GI (Dr Trejo) planning for endoscpoy Third episode: 11/17/2020 (age 20yr): [facility] ED for pelvic pain, suspected pelvic congestive syndrome. U/S normal except prominent pelvic vasculature. Suggest BAR POINTER referral. 11/26/2020 (age 20yr): : admitted to [facility] 11/18/2020 - 11/12/2020 for 5 days of severe abdominal pain. Initiated treatment for presumed PID, no other diagnosis made, treated wit abx. GC/chlam neg. Missed BAR POINTER appointment. Assessment & Plan (12/03/2020 9:13 AM EDT): 12/03/2020 (age 20yr): vag probe from yesterday positive for yeast. With pt on antibiotics for PID and having symptoms of vaginitis, I recommend treatment. I will call in [facility] for her. I left a message for her to call back and speak with triage. Assessment & Plan (12/01/2020 12:35 PM EDT): 12/01/2020 (age 20yr): Recurrent, extensive work up completed over the course of the last2 years. I suspected constipation at evaluation on 05/12/2020 but refered to GI . Labs as xray normal 06/2020. 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 Oneal not yet been evaluated by BAR POINTER. Feeling better today after recent admission to [facility] where she was treated for PID. - Recommend reschedule with BAR POINTER, be persistent about getting appt and confirming appt time. - Recommend adult primary care as Petr is starting to have adult medical issues and may be needing more senior adults director care going forward. Assessment & Plan (05/12/2020 6:01 PM EST): 05/12/2020 (age 19yr): Recurrent, extensive work up completed over the course of the last year. I suspect constipation but will refer to GI and do lab work up as requested by pt, given the difficulty she's been having. Her stomach is constantly hurting, feeling bloated, can't use the bathroom. She is having difficulty pooping. Her BM this morning was watery. Last BM before that was yesterday evening, softer. She does not think she's constipated. Pt is worried about crohn's disease. Will refer to GI, check labs and KUB today. Slow transit constipation 08/29/2019 Overview (08/29/2019): Both Constipation Dx'd 08/16/19 and treated with miralax with good result. 08/29/2019 plan to continue miralax. Try taking it daily at night for better control for at least one month, then decreased. Discussed water intake and diet control. Assessment & Plan (12/01/2020 12:35 PM EDT): 12/01/2020 (age 20yr): Bowel movements are regular, no issues reported. Assessment & Plan (08/29/2019 11:29 AM EST): Constipation: Almost totally resolved. She has been taking miralax 1 cap BID qod, no having BM 1-2 times daily. Her stools are soft on days that she takes it, and harder when she doesn't. She doesn't take it daily because she's afraid she will have to go while she's at work. Try taking it daily at night for at least one month, then decreased. Discussed water intake and diet control. Allergic rhinitis 05/07/2010 Resolved Problems Problem Noted Date Diagnosed Date Resolved Date Mild intermittent asthma without complication 11/11/19 10 01/08/2020 Assessment & Plan (06/28/2019 3:26 PM EST): Mild exacerbation with URI. Immunizations Immunization Administration Dates Next Due DTaP 5 10/28/2003, 1,04/06/2000,02/02,1999 H1N1 04/11/2009 HPV, Quadrivalent 04/06/2011,12/01/2010,09/29/19 11 Hep A, ped/adol 11/03/2014,10/31/2013 Hep B, ped/adol 06/29/2000,1999,1999 Hib (PRP-T) 2002, 1,04/06/2000,02/02,1999 IPV 10/28/2003, 0,02/03/2000,11/29 Influenza Split 05/02/2013, 2,03/10/2011,03/05 Influenza, injectable, quadr ivalent, preservative free 03/27/2019,03/07/2018,03/28/2017,05/07,03/19/2015,04/03/2014 Influenza, injectable, trivalent 04/11/2009,05/26,05/29/2007 MMR 10/28/2003,09/28/2000 Meningococcal B Trumenba 01/15/2020 Meningococcal Conj (Menactra) MCV4P 11/06/2015,0 11/01/2011 PPD Test 03/07/2018 Pneumococcal Conjugate 09/28/2000,2000,04/06/2000,02/02 Tdap 11/01/2011 Varicella 11/07/2007,09/28/2000 Family History Relation Name Status Comments Brother 1 Alive Brother: ADD/AD HD, ADD/ADHD Brother 2 Alive Brother: ADD/AD HD, ADD/ADHD Father Alive Father: Migrain es Mother Moriah Alive Mother: Alive a nd well Other Family history of Sudden /[place] under 55, Family history of Asthma, No family history of *Thrombophilia, Family history of *Heart Disease Social History Tobacco Use Types Packs/Day Years Used Date Smoking Tobacco: Never Smokeless Tobacco: Never Comments:Never smoker Alcohol Use Standard Drinks/Week Comments Never 0 (1 standard drink = 0.6 oz pur e alcohol) Hunger/Food Answer Date Recorded In the last 12 months, did y ou or your family ever eat less than you felt you should because there wasn't enough money for food? No 01/08/2020 Stable Housing Answer Date Recorded Are you worried that in the next 2 months you may not have stable housing? No 01/08/2020 Transportation Concerns Answer Date Rec orded In the last 12 months, have you or your family ever had to go without healthcare because you didn't have a way to get there? No 01/08/2020 Hazards in Home Answer Date Recorded Think about the place you li ve. Do you have problems with any of the following? Pests (mice or roaches), mold, no/not working smoke detectors, water leaks, no window guards. No 2019 Financing Utilities Answer Date Recorde d In the last 12 months, has t he electric, gas, oil, or water company threatened to shut off your services in your home? No 01/08/2020 Safety at Home Answer Date Recorded Are you or your family worried about feeling saf e in your home? No 01/08/2020 Outside Support Answer Date Recorded Do you feel that you need mo re support from other people or programs to help you care for yourself or your family? No 01/08/2020 Understanding Health Concerns Answer Da te Recorded Do you need help understandi ng your or your child's healthcare needs (diagnosis, medications, plan, etc.)? No 01/08/2020 Financing Health Concerns Answer Date R ecorded In the last 12 months, was t here a time when your child needed to see a doctor or get medications or supplies but could not because of cost? No 01/08/2020 Missing School or Work Answer Date Tramaine rded Did you or your child miss s chool or work because of a health problem that could have been avoided? No 01/08/2020 Comments No Sex and Gender Information Value Date Recorded Sex Assigned at Female 01/08/2020 7:21 PM EDT Legal Sex Female 5:23 PM EDT Gender Identity Female 01/08/2020 7:21 PM EDT Sexual Orientation Straight 01/08/2020 7: 21 PM EDT Last Filed Vital Signs Vital Sign Reading Time Taken Comments Blood Pressure 113/75 12/01/2020 11:37 AM EDT Pulse 75 12/01/2020 11:37 AM EDT Temperature 36.4 ??C (97.5 ??F) 12/01/2020 1 1:37 AM EDT Respiratory Rate - - Oxygen Saturation 98% 06/28/2019 3:14 PM EST Inhaled Oxygen Concentration - - Weight 50.3 kg (110 lb 12.8 oz) 021 11:37 AM EDT Height 161.3 cm (5' 3.5 ) 12/01/2020 11 :37 AM EDT Body Mass Index 19.32 12/01/2020 11:37 AM EDT Plan of Treatment Health Maintenance Due Date Last Done Comments Men B Vaccine (2 of 2 - Trum enba SCDM 2-dose series) 07/17/2020 01/15/2020 Influenza Vaccines (#1) 2024 03/27/20 19, 03/07/2018, 03/28/2017, Additional history exists COVID-19 Vaccine (3 2023-2 5 season) 2024 01/05/2021, 12/01/2020 DTaP,Tdap,and Td Vaccines (8 - Td or Tdap) 03/15/2027 03/15/2017, 11/01/2011, 10/28/2003, Additional history exists Hepatitis B Vaccines Completed 06/29/2000, 1999, 1999 Pneumococcal Vaccine Completed 09/28/2000, 06/29/2000, 04/06/2000, Additional history exists HIB Vaccines Completed 2002, 02/2001, 04/06/2000, Additional history exists IPV Vaccines Completed 10/28/2003, 03/26, 02/03/2000, Additional history exists Varicella Vaccines Completed 11/07/2007, 09/28/2000 HPV Vaccines Completed 04/06/2011, 01/2011, 09/28/2010 Hepatitis A Vaccines Completed 11/03/2014, 11/01/19 14 Meningococcal Vaccine Completed 11/06/2015, 012 MMR Vaccines Completed 04/30/2017, 09/2003, 09/28/2000 Procedures * Due to [place] state law, this organization might not be sharing sensitive test results. Procedure Name Priority Date/Time Associated Diagnosis Comments CHLAMYDIA AND GONORRHEA, AMPLIFIED Routine 05/05/2020 4:29 PM EST Screening examination for bacterial and spirochetal disease from Last 3 Months or Most Recently Relevant to Health Maintenance Results * Due to [place] state law, this organization might not be sharing sensitive test results. * Chlamydia and Gonorrhoea, Amplified (05/05/2020 4:29 PM EST) Chlamydia Trachomatis, DNA Probe NOT DETECTED (NEG) [facility] Comment:Reference range: NOT DETECTED URINE GC AMP PROBE NOT DETECTED (NEG) [facility] Comment: Reference range: NOT DETECTED (NOTE) The analytical performance characteristics of this assay, when used to test SurePath(TM) specimens have been determined by [employer]. The modifications have not been cleared or approved by the FDA. This assay has been validated pursuant to the CLIA regulations and is used for clinical purposes. = For additional information, please refer to https://education.Classical Connection/faq/UMK522 (This link is being provided for information/ educational purposes only.) = Test Performed by: [employer], [address] [place] [address]. [id number]. Program Analyst: Gil Newberry MD. Testing performed or reported by [facility], a Service of [facility], [facility] [place] [address] Baljit Faith MD, Audio/Visual Manager Urine 05/05/2020 4:29 PM EST 05/05/2020 7:26 PM EST Cathie Benavidez MD LAB MICROBIOLOGY - GENERAL OR DERABLES Final Result [facility] from Last 3 Months or Most Recently Relevant to Health Maintenance Insurance [facility] NON PCC
--- OUTSIDE RECORDS SUMMARY | 2024-08-06 07:11 | XMS_ITS ---
Author Organization [facility] Address [address] [place] [address] Care Team Providers Care Assistant Distribution Manager Name Role Phone Po Neel BHARDWAJ Primary Care Provider Paul Cortes Jr [phone] REASON FOR VISIT labs Encounters Encounter Location Date Provider Diagnosis [facility] [address] [place] [address] 03/14/2024 Paul Lu Jr PLAN OF TREATMENT Next Appt Details Provider Name:Paul savage Jr, 09/09/2024 10:00:00 AM, [address], [address], [place], [address],
--- OUTSIDE RECORDS SUMMARY | 2024-08-06 07:11 | XMS_ITS | Encounter Summary ---
Author Organization [facility] Address [address] [place], [place] [id number] Phone Care Team Providers Care Pinner Printed Circuit Boards Name Role Phone Cathie Benavidez MD Primary Care Provider [phone] Encounter Details Date Type Department Care Team (Late st Contact Info) Description 11/07/2016 Documentation [facility] [place] [address] [place] [address] Family Medicine, Physician [address] [place], [place] [id number] Social History Tobacco Use Types Packs/Day Years Used Date Smoking Tobacco: Never Assessed Comments Unknown Sex and Gender Information Value Date Recorded Sex Assigned at Female 01/08/2020 7:21 PM EDT Legal Sex Female 5:23 PM EDT Gender Identity Female 01/08/2020 7:21 PM EDT Sexual Orientation Straight 01/08/2020 7: 21 PM EDT documented as of this encounter Plan of Treatment Not on file documented as of this encounter Visit Diagnoses Not on filedocumented in this encounter Care Teams [employer] Boards Relationship Specialty Start Date End Date Cathie Benavidez MD [address] [place] [address] PCP - General Pediatrics 08/14/19 10/11/22 documented as of this encounter
--- OUTSIDE RECORDS SUMMARY | 2024-08-06 07:11 | XMS_ITS | Encounter Summary ---
Author Organization [facility] Address [address] [place], [place] [id number] Phone Care Team Providers Care Civil Engineering Professor Name Role Phone Cathie Benavidez MD Primary Care Provider [phone] Encounter Details Date Type Department Care Team (Late st Contact Info) Description 12/09/2015 Documentation [facility] [place] Family Medicine [address] [place] [address] Family Medicine, Physician [address] [place], [place] [phone] Social History Tobacco Use Types Packs/Day Years [...] on filedocumented in this encounter Care Teams Civil Engineering Professor Relationship Specialty Start Date End Date Cathie Benavidez MD [address] [place] [address] PCP - General Pediatrics 08/14/19 10/11/22 documented as of this encounter
--- OUTSIDE RECORDS SUMMARY | 2024-08-06 07:11 | XMS_ITS | Encounter Summary ---
Author Organization [facility] Address [address] [place], [place] [id number] Phone Care Team Providers Care Drill Punch Operator Name Role Phone Cathie Benavidez MD Primary Care Provider [phone] Encounter Details Date Type Department Care Team (Late st Contact Info) Description 12/09/2015 Documentation [facility] [place] [address] [place] [address] Family Medicine, Physician [address] [phone] Social History Tobacco Use Types Packs/Day Years [...] on filedocumented in this encounter Care Teams Drill Punch Operator Relationship Specialty Start Date End Date Cathie Benavidez MD [address] [place] [address] PCP - General Pediatrics 08/14/19 10/11/22 documented as of this encounter
--- OUTSIDE RECORDS SUMMARY | 2024-08-06 07:11 | XMS_ITS | Encounter Summary ---
Author Organization [facility] Address [address] [place], [place] [phone] Phone Care Team Providers Care Sap Abap Developer Name Role Phone Cathie Benavidez MD Primary Care Provider [phone] Encounter Details Date Type Department Care Team (Late st Contact Info) Description 09/08/2016 Documentation [facility] [place] [address] [place] [address] Family Medicine, Physician [address] [phone] Social History Tobacco Use Types Packs/Day Years [...] on filedocumented in this encounter Care Teams Sap Abap Developer Relationship Specialty Start Date End Date Cathie Benavidez MD [address] [place] [address] PCP - General Pediatrics 08/14/19 10/11/22 documented as of this encounter
--- OUTSIDE RECORDS SUMMARY | 2024-08-06 07:11 | XMS_ITS | Encounter Summary ---
Author Organization [facility] Address [address] [place] [address] Phone Care Team Providers Care Environmental Services Associate Name Role Phone Cathie Benavidez MD Primary Care Provider [phone] Encounter Details Date Type Department Care Team (Late st Contact Info) Description 02/09/2017 Conversion Encounter [facility] [place] [address] [place] [address] Social History Tobacco Use Types Packs/Day Years Used Date Smoking Tobacco: Never Comments:Never smoker Comments Unknown Sex and Gender Information Value [...] on filedocumented in this encounter Care Teams Environmental Services Associate Relationship Specialty Start Date End Date Cathie Benavidez MD [address] [place] [address] PCP - General Pediatrics 08/14/19 10/11/22 documented as of this encounter
--- OUTSIDE RECORDS SUMMARY | 2024-08-06 07:11 | XMS_ITS | Encounter Summary ---
Author Organization [facility] Address [address] [place] [address] Phone Care Team Providers Care Apprentice Name Role Phone Cathie Benavidez MD Primary Care Provider [phone] Encounter Details Date Type Department Care Team (Late st Contact Info) Description 02/09/2017 Documentation [facility] [place] Family Medicine [address] [place] [address] Family Medicine, Physician [address], [place] [phone] Social History Tobacco Use Types Packs/Day Years [...] on filedocumented in this encounter Care Teams Apprentice Relationship Specialty Start Date End Date Cathie Benavidez MD [address] [place] [address] PCP - General Pediatrics 08/14/19 10/11/22 documented as of this encounter
--- OUTSIDE RECORDS SUMMARY | 2024-08-06 07:11 | XMS_ITS | Patient Health Record ---
Author Organization [facility] Address [address] [place] [address] Care Team Providers Care Video Game Designer Name Role Phone Neel Duque MD Primary Care Provider Paul Cortes Jr Unavailable ALLERGIES No Known Allergies RESULTS Component Value Reference Range Notes Ur Preg Test Reviewed date:11/15/2023 07:02:24 AM Interpretation: Performing Lab:[address] [phone] Notes/Report: Urine NEGATIVE NEGATIVE This test was developed to detect early . False negative results may occur after the 5th - 7th week of when using this test method. If clinically indicated, consider a serum hCG. Pathology Reviewed date:11/16/2023 10:20:06 AM Interpretation: Performing Lab:[facility], [address] [place] [phone] Notes/Report: GI PANEL Reviewed date:03/14/2024 11:09:52 AM Interpretation: Performing Lab:[address] [phone] Notes/Report: Campylobacter Not Detected Not Detect. Plesiomonas shigelloides Not Detected Not Detect. Salmonella Not Detected Not Detect. Vibrio Not Detected Not Detect. Vibrio Cholerae Not Detected Not Detect. Yersinia enterocolitica Not Detected Not Detect. E. coli EAEC Not Detected Not Detect. E. coli EPEC Not Detected Not Detect. E. coli ETEC Not Detected Not Detect. E. coli STEC Not Detected Not Detect. E. coli O157 Not applicable Not Detect. E. coli containing the O157 antigen are a subset of Shiga-like toxin-producing E. coli (STEC). Shigella sp./EIEC Not Detected Not Detect. Cryptosporidium Not Detected Not Detect. Cyclospora cayetanensis Not Detected Not Detect. Entamoeba histolytica Not Detected Not Detect. Giardia lamblia Not Detected Not Detect. Adenovirus F 40/41 Not Detected Not Detect. Astrovirus Not Detected Not Detect. Norovirus GI/GII Not Detected Not Detect. Rotavirus A Not Detected Not Detect. Sapovirus Not Detected Not Detect. All results must be correlated with clinical findings. Negative results do not exclude the possibility of gastrointestinal infection and should not be used as the sole basis for diagnosis, treatment, or other management decisions. Virus, bacteria, and parasite nucleic acid may persist in vivo independently of organism viability. Additionally, some organisms may be carried symptomatically. Detection of organism targets does not imply that the corresponding organisms are infectious or are the causative agents for clinical symptoms. There is a risk of false negative values due to the presence of sequence variants in the gene targets of the assay, amplification inhibitors in specimens, or inadequate numbers of organisms for amplification. The identification of several diarrheagenic E. coli pathotypes has historically relied upon phenotypic characteristics. This panel targets genetic determinants characteristic of most pathogenic strains, but may not detect all strains having phenotypic characteristics of a pathotype. The performance of this test has not been established for monitoring treatment of infection with any of the panel organisms. This assay is performed by Multiplexed PCR, utilizing the Huoli Array. Complete Blood Count Auto Di ff Reviewed date:03/14/2024 10:11:46 AM Interpretation: Performing Lab:[facility], [address] [place] [phone] Notes/Report: White Blood Count 6.2 4.8-10.8 X10*3/uL Red Blood Count 5.20 4.20-5.50 X10*6/uL Hemoglobin 14.4 12.0-16.0 g/dl Hematocrit 42.7 37.0-47.0 % Mean Corpuscular Volume 82.1 80.0-98.0 fL Mean Corpuscular Hemoglobin 27.7 27.0-33.0 pg Mean Corpuscular HGB Conc 33.7 31.0-35.0 g/dl Red Cell Distribution Width 12.8 11.0-16.0 % Platelet Count 256 160-400 X10*3/uL Mean Platelet Volume 10.8 9.4-12.3 fL Neutrophils Percent Auto 53.1 45-73 % Imm Gran Pct Auto 0.2 0.0-0.4 % Lymphocytes Percent Auto 38.6 20-40 % Monocytes Percent Auto 5.6 2-11 % Eosinophils Percent Auto 1.9 0-4 % Basophils Percent Auto 0.6 0-2 % NRBC Pct Auto 0.0 0.0-0.2 /100WBC Neutrophils Absolute Auto 3.3 2.0-8.3 x10*3/u L Imm Gran Abs Auto 0.01 0.00-0.03 X10*3/uL Lymphocytes Absolute Auto 2.4 1.2-4.9 X10*3/u L Monocytes Absolute Auto 0.4 0.1-1.2 X10*3/uL Eosinophils Absolute Auto 0.1 0.0-0.4 X10*3/u L Basophils Absolute Auto 0.0 0.0-0.2 X10*3/uL NRBC Abs Auto 0.000 0.0-0.012 X10*3/uL Liver Panel Reviewed date:03/14/2024 10:10:20 AM Interpretation: Performing Lab:[facility], [address] [place] [phone] Notes/Report: Bilirubin Total 0.4 0.0-1.0 mg/dL Bilirubin Direct 0.2 0.0-0.5 mg/dL Aspartate Amino Transferase 18 5-31 U/L Alanine Aminotransferase 13 0-31 U/L Total Protein 7.5 6.5-8.0 g/dL Albumin Level 4.6 3.5-5.0 g/dL Alkaline Phosphatase 69 39-117 U/L Lipase Reviewed date:03/14/2024 10:10:12 AM Interpretation: Performing Lab:[facility], [address] [place] [phone] Notes/Report: Lipase 16 8-78 U/L TSH reflex Free T4 Reviewed date:03/14/2024 10:10:04 AM Interpretation: Performing Lab:[facility], [address] [place] [phone] Notes/Report: TSH reflex Free T4 0.54 0.32-4.0 uIU/mL Leukocytes Stool Qualitative Reviewed date:03/14/2024 11:09:45 AM Interpretation: Performing Lab:[facility], [address] [place] [phone] Notes/Report: Leukocytes Stool Qualitative NEGATIVE NEGATIVE Ova and Parasite Reviewed date:03/21/2024 09:47:12 AM Interpretation: Performing Lab:[facility], [address] [place] [phone] Notes/Report: Ova and Parasite SEE NOTE OVA AND PARASITES, CONC AND PERM SMEAR Micro Number: [id number] Test Status: Final Specimen Source: Stool Specimen Quality: Adequate CONCENTRATION 1: No ova or parasites seen TRICHROME 1: No ova or parasites seen Routine Ova and Parasite exam may not detect some parasites that occasionally cause diarrheal illness. Cryptosporidium Antigen and/or Cyclospora Isospora Exam may be ordered to detect these parasites. For additional information, please refer to [email or web address].Designer Material/faq/IER883 (This link is being provided for informational/ educational purposes only.) THIS TEST WAS PERFORMED AT: [facility] [address] [address] RAKESH DIAL MD REASON FOR REFERRAL No Information MEDICATIONS Medication SIG (Take, Route, Frequency, Duration) Notes Start Date End Date Status Ketorolac Tromethamine 10 MG Oral for 4 Active Doxycycline Hyclate 100 MG Oral for 14 Active Progesterone 200 MG TAKE 1 CAPSULE BY MO UT EVERY DAY AT BEDTIME FOR 5 DAYS Oral for 5 Active metroNIDAZOLE 500 MG TAKE 1 TABLET BY [facility] EVERY 12 HOURS FOR 7 DAYS Oral for 7 Active Ventolin HFA 108 (90 Base) MCG/ACT Inhalation for 25 Active Ibuprofen 600 MG Oral for 11 A ctive Acetaminophen Extra Strength 500 MG Oral for 8 Active Omeprazole 20 MG 1 capsule 30 minutes before morning meal Orally Once a day for 30 day(s) 10/25/2023 Active Dicyclomine HCl 10 MG 1 tablet Orally 2- 4 times a day 10/25/2023 Active Gas Relief Extra Strength 125 MG TAKE 1 CAPSULE BY MOUTH 2-4 TIMES A DAY NEEDED Oral for 5 Active Ondansetron 4 MG Oral for 4 Ac tive IMMUNIZATIONS Vaccine Route Administration Date Status Comme nts Influenza Unknown 03/06/2023 Refused SOCIAL HISTORY Tobacco Use: Social History Observation Description Date Details (start date - stop date) Never Smoker NA - NA Sex Assigned At : Social History Observation Description Sex Assigned At Unknown Tobacco Use/Smoking Question Answer Notes Patient is a nonsmoker Alcohol Screen Question Answer Notes Did you have a drink containing alcohol in the p ast year? No Points 0 Interpretation Negative PROBLEMS Problem Type ICD Code Onset Dates Problem Status W/U Status Risk SNOMED Code Notes Problem Change in bowel habits (R19.4) Active confirmed 08063505 Problem Gastroesophageal reflux disease, unspecified whether esophagitis present (K21.9) Active confirmed 664342732 Problem Epigastric pain (R10.13) Active confirmed 35287361 VITAL SIGNS Temperature 97.5 degrees Fahrenheit 03/11/2024 Blood pressure diastolic 00 mm Hg 03/11/2024 Height 63 in 03/11/2024 Blood pressure systolic 000 mm Hg 03/11/2024 Weight 123 lb 6 oz lbs 03/11/2024 BMI 21.85 kg/m2 03/11/2024 Encounters Encounter Location Date Provider Diagnosis [facility] [place] [address] [place] [id number] 11/14/2023 Paul Lu Jr Epigastric pain R10.13 [facility] [address] [place] [phone] 03/11/2024 Paul Lu Jr Gastroesophageal reflux disease, unspecified whether esophagitis present K21.9 and Change in bowel habits R19.4 [facility] [address] [place] [phone] 10/25/2023 Paul Lu Jr Epigastric pain R10.13 [facility] [address] [place] [phone] 10/17/2023 Paul Lu Jr [facility] [address] [place] [phone] 11/16/2023 Paul Lu Jr [facility] [address] [place] [id number] 02/21/2024 Paul Lu Jr [facility] [address] [place] [phone] 03/01/2024 Paul Lu Jr [facility] [address] [place] [phone] 03/14/2024 Paul Lu Jr ASSESSMENTS Encounter Date Diagnosis Assessment Notes Treatment Notes Treatment Clinical Notes 11/14/2023 Epigastric pain (ICD -10 - R10.13) 03/11/2024 Change in bowel habi ts (ICD-10 - R19.4) 03/11/2024 Gastroesophageal ref lux disease, unspecified whether esophagitis present (ICD-10 - K21.9) Daily bowel care program material was printed 10/25/2023 Epigastric pain (ICD -10 - R10.13) Endoscopy material was printed PLAN OF TREATMENT Pending Test Test Name Order Date LIVER PROFILE 03/11/2024 LIPASE 03/11/2024 CBC w/o DIFF 03/11/2024 STOOL WBC 03/11/2024 OVA & PARASITES (O&P) 03/11/2024 TSH REFLEX FREE T4 03/11/2024 Future Test Test Name Order Date COLONOSCOPY 03/06/2023 UPPER GI ENDOSCOPY 10/25/2023 Next Appt Details Provider Name:Paul savage Jr, 09/09/2024 10:00:00 AM, [address] [facility], [address], [place], [address], Insurance Providers Payer Name Payer Address Payer Phone Subscriber Number Group Number Insured Name Patient Relationship to Insured Coverage Start Date Coverage End Date [facility] [address] [address] [place], [place] [id number] [id number] Self - patient is the insured MEDICAL (GENERAL) HISTORY Medical History History ICD Code Anxiety/depression Asthma Migraine headaches Seasonal allergies Colonoscopy 04/17 normal biopsies, benig n polyp, ten-year followup Endoscopy 11/16 no Angela's esophagus or H. pylori or celiac disease Surgical History Surgery Date(Month/Year) Salpingectomy for ruptured tubal pregnan cy 01/16 Hospitalization History Reason Date(Month/Year)
--- OUTSIDE RECORDS SUMMARY | 2024-08-06 07:11 | XMS_ITS | Encounter Summary ---
Author Organization [facility] Address [address] [place] [address] Phone Care Team Providers Care Voice Data Communications Engineer Name Role Phone Cathie Benavidez MD Primary Care Provider [phone] Encounter Details Date Type Department Care Team (Late st Contact Info) Description 02/09/2017 Documentation [facility] [place] [address] [place] [address] Family Medicine, Physician [address] [place] [phone] Social History Tobacco Use Types Packs/Day Years [...] on filedocumented in this encounter Care Teams Voice Data Communications Engineer Relationship Specialty Start Date End Date Cathie Benavidez MD [address] [place] [address] PCP - General Pediatrics 08/14/19 10/11/22 documented as of this encounter
--- OUTSIDE RECORDS SUMMARY | 2024-08-06 07:11 | XMS_ITS | Encounter Summary ---
Author Organization [facility] Address [address] [place], [place] [address] Phone Care Team Providers Care Lawyer Criminal Name Role Phone Cathie Benavidez MD Primary Care Provider [phone] Encounter Details Date Type Department Care Team (Late st Contact Info) Description 11/07/2016 [place] [facility] [place] [address] [place] [address] Family Medicine, Physician [address] [place] [phone] Social History Tobacco Use Types Packs/Day Years [...] on filedocumented in this encounter Care Teams Lawyer Criminal Relationship Specialty Start Date End Date Cathie Benavidez MD [address] [place] [address] PCP - General Pediatrics 08/14/19 10/11/22 documented as of this encounter
--- OUTSIDE RECORDS SUMMARY | 2024-08-06 07:11 | XMS_ITS | Encounter Summary ---
Author Organization [facility] Address [address] [place], [place] [address] Phone Care Team Providers Care Picked Edge Sewing Machine Operator Name Role Phone Cathie Benavidez MD Primary Care Provider [phone] Encounter Details Date Type Department Care Team (Late st Contact Info) Description 10/03/2016 Documentation [facility] [place] Medicine [address] [place] [address] Family Medicine, Physician [address] [phone] Social History Tobacco Use Types Packs/Day Years [...] on filedocumented in this encounter Care Teams Picked Edge Sewing Machine Operator Relationship Specialty Start Date End Date Cathie Benavidez MD [address] [place] [address] PCP - General Pediatrics 08/14/19 10/11/22 documented as of this encounter
--- OUTSIDE RECORDS SUMMARY | 2024-08-06 07:12 | XMS_ITS | Encounter Summary ---
Author Organization [facility] Address [address] [place], [place] [address] Phone Care Team Providers Care Diamond Powder Technician Name Role Phone Cathie Benavidez MD Primary Care Provider [phone] Encounter Details Date Type Department Care Team (Late st Contact Info) Description 08/11/2016 Documentation [facility] [place] Medicine [address] [place] [address] Family Medicine, Physician [address] [place], [place] [phone] Social History Tobacco Use Types Packs/Day Years [...] on filedocumented in this encounter Care Teams Diamond Powder Technician Relationship Specialty Start Date End Date Cathie Benavidez MD [address] [place] [address] PCP - General Pediatrics 08/14/19 10/11/22 documented as of this encounter
--- OUTSIDE RECORDS SUMMARY | 2024-08-06 07:12 | XMS_ITS | Encounter Summary ---
Author Organization [facility] Address [address] [place], [place] [address] Phone Care Team Providers Care Scroll Assembler Name Role Phone Cathie Benavidez MD Primary Care Provider [phone] Encounter Details Date Type Department Care Team (Late st Contact Info) Description 09/08/[address] [facility] [place] [address] [place] [address] Family Medicine, Physician [address] [place] [phone] Social History Tobacco Use Types Packs/Day Years [...] on filedocumented in this encounter Care Teams Scroll Assembler Relationship Specialty Start Date End Date Cathie Benavidez MD [address] [place] [address] PCP - General Pediatrics 08/14/19 10/11/22 documented as of this encounter
--- OUTSIDE RECORDS SUMMARY | 2024-08-06 07:12 | XMS_ITS | Encounter Summary ---
Author Organization [facility] Address [address] [place], [place] [address] Phone Care Team Providers Care Supervisor Shop Name Role Phone Cathie Benavidez MD Primary Care Provider [phone] Encounter Details Date Type Department Care Team (Late st Contact Info) Description 07/22/2016 [place] [facility] [place] [address] [place] [address] Family Medicine, Physician [address] [place], [place] [phone] Social History Tobacco Use Types Packs/Day Years [...] on filedocumented in this encounter Care Teams Supervisor Shop Relationship Specialty Start Date End Date Cathie Benavidez MD [address] [place] [address] PCP - General Pediatrics 08/14/19 10/11/22 documented as of this encounter
--- OUTSIDE RECORDS SUMMARY | 2024-08-06 07:12 | XMS_ITS ---
Author Organization [facility] Address [address] [place] [address] Care Team Providers Care Programming Equipment Operator Name Role Phone Po Neel BHARDWAJ Primary Care Provider Paul Cortes Jr Unavailable ALLERGIES No Known Allergies RESULTS Component Value Reference Range Notes GI PANEL Reviewed date:03/14/2024 11:09:52 AM Interpretation: Performing Lab:[facility], [address] [place] [phone] Notes/Report: Campylobacter Not Detected Not Detect. Plesiomonas [...] is performed by Multiplexed PCR, utilizing the [employer] Array. REASON FOR VISIT Patient presents today for pain in abdomen MEDICATIONS Medication SIG (Take, Route, Frequency, Duration) Notes Start Date End Date Status Ibuprofen 600 MG Oral for 11 A [...] A DAY NEEDED Oral for 5 Active Ketorolac Tromethamine 10 MG Oral for 4 Active Doxycycline Hyclate 100 MG Oral for 14 Active Progesterone 200 MG TAKE 1 CAPSULE BY [facility] EVERY DAY AT BEDTIME FOR 5 DAYS Oral for 5 Active metroNIDAZOLE 500 MG TAKE 1 TABLET BY [facility] EVERY 12 HOURS FOR 7 DAYS Oral for 7 Active Ventolin HFA 108 (90 Base) MCG/ACT Inhalation for 25 Active Ondansetron 4 MG Oral for 4 Ac tive SOCIAL HISTORY Tobacco Use: Social History Observation Description Date Details (start date - stop date) Never Smoker NA - NA Sex Assigned At : Social History Observation Description Sex Assigned At Unknown Tobacco Use/Smoking Question Answer Notes Patient is a nonsmoker Alcohol Screen Question Answer Notes Did you have a drink containing alcohol in the p ast year? No Points 0 Interpretation Negative VITAL SIGNS BMI 21.85 kg/m2 03/11/2024 Blood pressure systolic 000 mm Hg 03/11/20 24 Blood pressure diastolic 00 mm Hg 024 Height 63 in 03/11/2024 Temperature 97.5 degrees Fahrenheit 03/11/20 24 Weight 123 lb 6 oz lbs 03/11/2024 Encounters Encounter Location Date Provider Diagnosis [facility] [address] [place] [address] 03/11/2024 Paul Lu Jr Gastroesophageal reflux disease, unspecified whether esophagitis present K21.9 and Change in bowel habits R19.4 ASSESSMENTS Encounter Date Diagnosis Assessment Notes Treatment Notes Treatment Clinical Notes 03/11/2024 Gastroesophageal ref lux disease, unspecified whether esophagitis present (ICD-10 - K21.9) Daily bowel care program material was printed 03/11/2024 Change in bowel habi ts (ICD-10 - R19.4) PLAN OF TREATMENT Treatment Notes Assessment Notes Gastroesophageal reflux dise ase, unspecified whether esophagitis present Daily bowel care program material was printed Pending Test Test Name Order Date LIVER PROFILE 03/11/2024 LIPASE 03/11/2024 CBC w/o DIFF 03/11/2024 STOOL WBC 03/11/2024 OVA & PARASITES (O&P) 03/11/2024 TSH REFLEX FREE T4 03/11/2024 Next Appt Details Follow Up: 6 Months, Reason: Provider Name:Paul savage Jr, 09/09/2024 10:00:00 AM, [address], [address], [place], [address],
--- OUTSIDE RECORDS SUMMARY | 2024-08-06 07:12 | XMS_ITS | Encounter Summary ---
Author Organization [facility] Address [address] [place], [place] [phone] Phone Care Team Providers Care Inspector Repairer Name Role Phone Cathie Benavidez MD Primary Care Provider [phone] Encounter Details Date Type Department Care Team (Late st Contact Info) Description 06/06/2016 Documentation [facility] [place] Medicine [address] [place] [address] Family Medicine, Physician [address] [place], [place] [phone] Social History Tobacco Use Types Packs/Day Years [...] on filedocumented in this encounter Care Teams Inspector Repairer Relationship Specialty Start Date End Date Cathie Benavidez MD [address] [place] [address] PCP - General Pediatrics 08/14/19 10/11/22 documented as of this encounter
[2024-08-06 07:26] LABS: MANUAL DIFF FLAG NO
[2024-08-06 07:28] LABS: Basophils Percent Auto 0.2 % (0-2); Eosinophils Absolute Auto 0.1 X10*3/uL (0.0-0.4); Eosinophils Percent Auto 1.9 % (0-4); Hematocrit 40.1 % (37.0-47.0); Hemoglobin 14.1 g/dl (12.0-16.0); Imm Gran Abs Auto 0.03 X10*3/uL (0.00-0.03); Imm Gran Pct Auto 0.5 % (0.0-0.4); Lymphocytes Absolute Auto 0.5 X10*3/uL (1.2-4.9); Mean Corpuscular HGB Conc 35.2 g/dl (31.0-35.0); Mean Corpuscular Volume 79.6 fL (80.0-98.0); Mean Platelet Volume 10.3 fL (9.4-12.3); Monocytes Absolute Auto 0.4 X10*3/uL (0.1-1.2); Monocytes Percent Auto 7.6 % (2-11); Neutrophils Absolute Auto 4.7 x10*3/uL (2.0-8.3); Neutrophils Percent Auto 80.8 % (45-73); Platelet Count 215 X10*3/uL (160-400); Red Blood Count 5.04 X10*6/uL (4.20-5.50); Red Cell Distribution Width 12.8 % (11.0-16.0); White Blood Count 5.8 X10*3/uL (4.8-10.8)
[2024-08-06 07:52] LABS: Alanine Aminotransferase 18 U/L (0-31); Albumin Level 4.5 g/dL (3.5-5.0); Alkaline Phosphatase 65 U/L (39-117); Anion Gap 15 (12-20); Aspartate Amino Transferase 23 U/L (5-31); Bilirubin Direct 0.2 mg/dL (0.0-0.5); Bilirubin Total 0.5 mg/dL (0.0-1.0); Blood Urea Nitrogen 8 mg/dL (9-16); Calcium 8.8 mg/dL (8.4-10.2); Carbon Dioxide 20 mmol/L (22-29); Chloride 111 mmol/L (96-108); Creatinine Clr Calc Pharmacy 112.1; Estimated Glomerular Filt Rate > 60; Glucose Random 98 mg/dL (60-115); Potassium 3.4 mmol/L (3.3-5.1); Sodium 143 mmol/L (135-145); Total Protein 7.7 g/dL (6.5-8.0)
[2024-08-06 07:53] LABS: HCG Quantitative < 2 mIU/mL
[2024-08-06 08:05] LABS: Influenza A PCR POSITIVE (Negative); Influenza B PCR NEGATIVE (Negative); Resp Syncy Virus RNA Qual PCR NEGATIVE (Negative); SARS COV2 PCR INHOUSE NEGATIVE (Negative)
[2024-08-06 12:18] VITALS: BP 116/66; PULSE 105; RESP 20; TEMP 36.3; O2SAT 98
--- NOTE | 2024-08-06 15:31 | ED.URI ---
HPI - URI/Sore Throat General Chief Complaint: Upper Respiratory Symptoms Stated Complaint: abd pain & vomiting Time Seen by Provider: 08/06/24 14:54 Source: patient, RN notes reviewed and old records reviewed Mode of arrival: ambulatory History of Present Illness ED Provider: Alycia Prince PA-C HPI Narrative: 23-year-old female with a past medical history of asthma, migraines, anxiety, depression, presenting to the ED complaining of flu-like symptoms including nausea, vomiting, abdominal pain, productive cough, CP/SOB, congestion, rhinorrhea, myalgias, fatigue and lightheadedness since 04:00AM. Reports some blood streaked in emesis. Denies recent travel. + sick contact. Related Data Home Medications ?Medication ?Instructions ?Recorded ?Confirmed acetaminophen 500 mg tablet 500 mg PO Q6H PRN pain 04/04/23 04/17/24 albuterol sulfate 90 mcg/actuation 2 puff inhalation Q6H PRN wheezing 04/04/23 04/17/24 aerosol inhaler (Ventolin HFA) dicyclomine 10 mg capsule 10 mg PO Q6H PRN 11/27/23 04/17/24 Previous Rx's ?Medication ?Instructions ?Recorded famotidine 10 mg tablet (Acid 10 mg PO BEDTIME #30 tabs 02/28/24 Pharmacy Data Analyst (famotidine)) simethicone 125 mg capsule (Gas 125 mg PO BID-QID PRN abdominal 02/28/24 Relief (simethicone)) distention #20 caps terconazole 0.8 % vaginal cream 1 appful vaginal BEDTIME 3 days 03/04/24 #20 grams menthol 0.44 %-zinc oxide 20.6 % 1 appl topical QID PRN hemorrhoids 03/13/24 topical ointment (Calmoseptine) #113 grams naproxen 500 mg tablet (Naprosyn) 500 mg PO BID #20 tabs 03/21/24 ondansetron 4 mg disintegrating 4 mg PO Q8H 4 days #12 tabs 04/17/24 tablet acetaminophen 500 mg tablet 500 mg PO Q6H PRN fever or pain 08/06/24 (Tylenol Extra Strength) #14 tabs ibuprofen 400 mg tablet 400 mg PO Q6H PRN fever or pain 08/06/24 #14 tabs ondansetron 4 mg disintegrating 4 mg PO Q8H PRN nausea and 08/06/24 tablet vomiting #10 tabs oseltamivir 75 mg capsule (Tamiflu) 75 mg PO Q12H 5 days #10 caps 08/06/24 Allergies Allergy/AdvReac Type Severity Reaction Status Date / Time Seasonal Allergies Allergy Intermediate Itchy Eyes Verified 08/06/24 06:40 Review of Systems Review of Systems: Yes all other systems are reviewed and are negative Constitutional: Constitutional: Reports as per [facility] [place] Past Medical History Attestation statement: The following information was validated with the patient. Source: old records reviewed Medical History External hemorrhoids with complication Anxiety and depression Cough Cough due to LYNN inhibitor Seasonal allergies Low back pain Migraine with aura Asthma Surgical History History of salpingectomy H/O colonoscopy Family History Family History Paternal Grandmother Breast CA Mother Crohn disease Father Migraine Brother Bipolar 1 disorder Maternal Grandmother Heart disease Maternal Aunt Colon cancer Other Mental health disorder Social History Social History Housing: Apartment Alcohol intake: never Patient Tobacco Use Status: Never used Tobacco e-Cigarette/Vaping Use: Never Used Second Hand Smoke Exposure: No Substance Use Type: Marijuana Advance Directives: No Advance Directives Information Provided: No Do you have a plan to hurt others: No Plan service: No Current occupational status: employed 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 Current occupational exposures/hazards: No Sexual orientation: Straight/Heterosexual Gender identity: Female Cognitive needs: No Hearing needs: No Vision needs: No Physical Exam Vital Signs: Vital Signs: Last Vital Signs Temp 102.4 F H 08/06/24 15:46 Pulse 110 H 08/06/24 15:46 Resp 19 08/06/24 15:46 BP 97/60 08/06/24 15:46 Pulse Ox 99 08/06/24 15:46 O2 Del Method Room Air 08/06/24 15:46 BMI result Body Mass Index 21.3 Const: General: cooperative, healthy appearing and no acute distress Orientation/consciousness: patient oriented x3 Limitations: no limitations HEENT: Head: Yes normal to inspection and Yes atraumatic Ears: hearing grossly normal bilaterally General nose exam: Normal external nose present Face and sinus: Yes normal facial exam Eyes: General: appearance normal, both eyes and all related structures EOM: EOMs intact bilaterally Neck: Neck: Yes normal visual inspection and Yes no meningeal signs Resp: Effort & Inspection: normal respiratory effort and no respiratory distress Auscultation: clear to auscultation bilaterally, no crackles, no rhonchi and no wheezes Cardio: Rate: regular rate Heart sounds: S1 normal heart sound present and S2 normal heart sound present GI: Inspection: Yes normal to inspection Palpation (GI): Soft to palpation, nontender, no guarding and not rigid Skin: Rashes: no rashes Wounds: no wounds Neuro: General: patient oriented x3, gait normal, tone normal, moves all extremities, no meningeal signs, no focal motor deficits and CN's II-XI intact bilaterally Cranial nerves: Yes CN's II-XII intact bilaterally Cognition (Neuro): normal cognition Gait exam (Neuro): Normal gait present Motor exam (neuro): 5/5 motor strength present throughout Extrem: General: Yes normal to inspection Course Course Course Narrative: -1350--febrile 102.4, tachycardic likely from fever. > no leukocytosis. Labs otherwise reassuring. HCG negative -Influenza A positive XR chest 1V IMPRESSION: Normal chest. -1829--fever resolved after medications given in the ED. UA not infected, >=160 ketones >> patient is tolerating p.o. in the ED without difficulty at present. Reports symptomatic improvement. Patient is safe for discharge home at this time. Will discharge home with prescription of Tamiflu & Zofran Results discussed with patient including worrisome signs and symptoms and strict return precautions, and when to return to the emergency department. They verbalized understanding and feel safe for discharge at this time. Medications Administered Discontinued Medications Generic Name Dose Route Start Last Admin Trade Name Freq PRN Reason Stop Dose Admin Acetaminophen 650 mg 08/06/24 15:46 08/06/24 17:42 Acetaminophen 325 Mg Tablet PO 08/06/24 15:47 650 mg ONCE ONE Administration Sodium Chloride 1,000 mls @ 999 mls/hr 08/06/24 15:15 08/06/24 16:26 Ns IV 08/06/24 16:15 999 mls/hr .Q1H1M SHARON Administration Ketorolac Tromethamine 15 mg 08/06/24 15:12 08/06/24 16:41 Ketorolac Tromethamine 15 Mg/Ml Vial IVPUSH 08/06/24 15:13 15 mg ONCE ONE Administration Metoclopramide HCl 10 mg 08/06/24 16:44 08/06/24 17:41 Metoclopramide Hcl 10 Mg/2 Ml Vial IVPUSH 08/06/24 16:45 10 mg ONCE ONE Administration Ondansetron HCl 4 mg 08/06/24 06:45 08/06/24 06:46 Ondansetron Odt 4 Mg Tab.Rapdis TRANSLINGU 08/06/24 06:46 4 mg ONCE ONE Administration Medical Decision Making Medical Decision Making [facility] Narrative: 1530: 23-year-old female with a past medical history of asthma, migraines, anxiety, depression, presenting to the ED complaining of flu-like symptoms including nausea, vomiting, abdominal pain, productive cough, CP/SOB, congestion, rhinorrhea, myalgias, fatigue and lightheadedness since 04:00AM. On exam mildly tachycardic, lungs CTA, abdomen soft & nontender. No focal deficits. Concern for viral illness vs dehydration vs PNA/bronchitis. Rule out metabolic abnormalities. Low suspicion for acute pancreatitis/cholecystitis/lithiasis, appendicitis/diverticulitis without tenderness on exam. Low suspicion for acute ACS/PE. Low suspicion for severe sepsis at this time as likely viral etiology Plan: Labs, UA, , IVF, viral testing, antiemetic, re-evaluate, PO trial Please refer to course for remaining clinical decision making, interpretation of labs/imaging results, and discussions with consultants and/or family members. Differential Diagnosis Differential Diagnoses: The differential diagnosis associated with the presentation includes As above Admission/Observation Consideration of admission/observation: Escalation of care including admission/observation considered Lab Data [facility] Lab Attestation statement: I reviewed the patient's lab results. 08/06/24 07:20 08/06/24 07:20 Labs: Lab Results 08/06/24 08/06/24 Range/Units 07:20 18:06 WBC 5.8 (4.8-10.8) X10*3/uL RBC 5.04 (4.20-5.50) X10*6/uL Hgb 14.1 (12.0-16.0) g/dl Hct 40.1 (37.0-47.0) % MCV 79.6 L (80.0-98.0) fL MCH 28.0 (27.0-33.0) pg MCHC 35.2 H (31.0-35.0) g/dl RDW 12.8 (11.0-16.0) % Plt Count 215 (160-400) X10*3/uL MPV 10.3 (9.4-12.3) fL Immature Gran % (Auto) 0.5 H (0.0-0.4) % Neut % (Auto) 80.8 H (45-73) % Lymph % (Auto) 9.0 L (20-40) % [place] % (Auto) 7.6 (2-11) % Eos % (Auto) 1.9 (0-4) % Baso % (Auto) 0.2 (0-2) % Lymph # (Auto) 0.5 L (1.2-4.9) X10*3/uL [place] # (Auto) 0.4 (0.1-1.2) X10*3/uL Eos # (Auto) 0.1 (0.0-0.4) X10*3/uL Baso # (Auto) 0.0 (0.0-0.2) X10*3/uL Abs Immat Gran (auto) 0.03 (0.00-0.03) X10*3/uL Absolute Neuts (auto) 4.7 (2.0-8.3) x10*3/uL Absolute Nucleated RBC 0.000 (0.0-0.012) X10*3/uL Nucleated RBC % (auto) 0.0 (0.0-0.2) /100WBC Sodium 143 (135-145) mmol/L Potassium 3.4 (3.3-5.1) mmol/L Chloride 111 H (96-108) mmol/L Carbon Dioxide 20 L (22-29) mmol/L Anion Gap 15 (12-20) BUN 8 L (9-16) mg/dL Creatinine 0.64 (0.5-1.4) mg/dL Estim Creat Clear Calc 112.1 Estimated GFR > 60 Random Glucose 98 (60-115) mg/dL Calcium 8.8 (8.4-10.2) mg/dL Magnesium 1.9 (1.6-2.6) mg/dL Total Bilirubin 0.5 (0.0-1.0) mg/dL Direct Bilirubin 0.2 (0.0-0.5) mg/dL AST 23 (5-31) U/L ALT 18 (0-31) U/L Alkaline Phosphatase 65 (39-117) U/L Total Protein 7.7 (6.5-8.0) g/dL Albumin 4.5 (3.5-5.0) g/dL Lipase 13 (8-78) U/L Beta HCG, Quant < 2 mIU/mL Urine Color Yellow Urine Appearance Clear Urine pH >= 9.0 (5.0-9.0) Ur Specific [place] 1.025 (1.005-1.025) Urine Protein 30 (1+) H (Neg-Trace) mg/dL Urine Glucose (UA) Negative (Negative) mg/dL Urine Ketones >=160 (Negative) mg/dL Urine Blood Negative (Negative) Urine Nitrite Negative (Negative) Ur Leukocyte Esterase Negative (Negative) Urine RBC 0-2 (0-2) /HPF Urine WBC 0-5 (0-5) /HPF Ur Squamous Epith Cells 0-2 (0-2) /HPF Urine Bacteria None Seen (None Seen) Hyaline Casts 0-2 (0-2) /LPF Urine Test NEGATIVE (NEGATIVE) Influenza Type A (PCR) POSITIVE A (Negative) Influenza Type B (PCR) NEGATIVE (Negative) RSV RNA Qual (PCR) NEGATIVE (Negative) SARS-CoV-2 RNA (RT-PCR) NEGATIVE (Negative) Radiology Impression Discussion of test interpretation with radiology: I have reviewed the radiologist's reading. Independent Historian Clinical information obtained from an independent historian. History obtained from or confirmed by: Other External Record Review External record reviewed: Inpatient record, Office record, Outpatient record, Prior outpatient labs, Prior outpatient radiology, Primary care record and Outside ED record Tests considered The following testing was considered but not selected: As above Prescription Management I considered prescription management with: Pain Medication, Antiviral and Antibiotic Chronic Conditions Patient?s care impacted by: Other Social Determinants Patient?s care significantly limited by Social Determinants of Health including: Other Social Determinant of Health Discharge Plan Discharge Clinical Impression: Influenza Patient Disposition: Home, Self-Care Instructions: Influenza (DC) Additional Instructions: You have the flu No antibiotics are indicated at this time. Tamiflu as an antiviral medication, please take as prescribed. Zofran as an antinausea medication, please take as needed for nausea and vomiting Stay on top of your fever with alternation of Tylenol and Motrin at home Make sure you are staying hydrated. Drink plenty of fluids. Rest Alternate Tylenol and Motrin at home as needed for body aches and fever Follow-up with your doctor. If symptoms persist or worsen return to the emergency department *If you are a child & not tolerating liquid or urinating for more than 6 hours, or fevers are uncontrolled with medications at home, return to the emergency department* Prescriptions: New oseltamivir [Tamiflu] 75 mg capsule 75 mg PO Q12H 5 Days Qty: 10 0RF ibuprofen 400 mg tablet 400 mg PO Q6H PRN (Reason: fever or pain) Qty: 14 0RF acetaminophen [Tylenol Extra Strength] 500 mg tablet 500 mg PO Q6H PRN (Reason: fever or pain) Qty: 14 0RF ondansetron 4 mg tablet,disintegrating 4 mg PO Q8H PRN (Reason: nausea and vomiting) Qty: 10 0RF No Action naproxen [Naprosyn] 500 mg tablet 500 mg PO BID Qty: 20 0RF albuterol sulfate [Ventolin HFA] 90 mcg/actuation HFA aerosol inhaler 2 puff inhalation Q6H PRN (Reason: wheezing) acetaminophen 500 mg tablet 500 mg PO Q6H PRN (Reason: pain) simethicone [Gas Relief (simethicone)] 125 mg capsule 125 mg PO BID-QID PRN (Reason: abdominal distention) Qty: 20 1RF famotidine [Acid Pharmacy Data Analyst (famotidine)] 10 mg tablet 10 mg PO BEDTIME Qty: 30 0RF dicyclomine 10 mg capsule 10 mg PO Q6H PRN terconazole 0.8 % cream 1 appful vaginal BEDTIME 3 Days Qty: 20 0RF menthol-zinc oxide [Calmoseptine] 0.44-20.6 % ointment 1 appl topical QID PRN (Reason: hemorrhoids) Qty: 113 2RF ondansetron 4 mg tablet,disintegrating 4 mg PO Q8H 4 Days Qty: 12 0RF Referrals: Po,Neel Henry MD [Primary Care Provider] - 1 week Stand Alone Forms: Work/School Release Print Language: [place] Zealander
[2024-08-06 15:40] LABS: Lipase 13 U/L (8-78); Magnesium 1.9 mg/dL (1.6-2.6)
[2024-08-06 15:46] VITALS: BP 97/60; PULSE 110; RESP 19; TEMP 39.1; O2SAT 99
[2024-08-06] MEDS: 0.9 % Sodium Chloride 1,000 ML 999 ML IV (16:26)
[2024-08-06] MEDS: Ketorolac Tromethamine 15 MG/ML VIAL IVPUSH (16:41)
[2024-08-06] MEDS: Metoclopramide HCl 10 MG/2 ML VIAL IVPUSH (17:41)
[2024-08-06] MEDS: Acetaminophen 325 MG TABLET 650 MG PO (17:42)
[2024-08-06 18:17] LABS: Appearance Urine Clear; Color Urine Yellow; Glucose Urine UA Negative (Negative); Leukocyte Esterase Urine Negative (Negative); Nitrite Urine Negative (Negative); PH >= 9.0 (5.0-9.0); Specific Gravity - Urine 1.025 (1.005-1.025); UMIC TRIGGER UACC YES; Urine Blood Negative (Negative); Urine Ketones >=160 mg/dL (Negative); Urine Protein 30 (1+) mg/dL (Neg-Trace)
[2024-08-06 18:19] LABS: UPreg QC Valid YES; Urine Pregnancy NEGATIVE (NEGATIVE)
[2024-08-06 18:22] LABS: Bacteria Urine None Seen (None Seen); Hyaline Casts Urine 0-2 /LPF (0-2); RBC Urine 0-2 /HPF (0-2); Squamous Epithelial Cell Urine 0-2 /HPF (0-2); WBC Urine 0-5 /HPF (0-5)
[2024-08-06 18:53] VITALS: BP 122/67; PULSE 83; RESP 20; TEMP 37.3; O2SAT 99
[2024-08-06 19:27] VITALS: BP 122/67; PULSE 83; RESP 20; TEMP 37.3; O2SAT 99
== END 2024-08-06 19:27 | disposition home or self-care (01) ==
PROVIDERS: Physician Assistant; Emergency Provider Emergency Medicine; PCP Internal Medicine
DX: J10.1 Influenza due to other identified influenza virus with other respiratory manifestations (principal); R10.2 Pelvic and perineal pain; R50.9 Fever, unspecified; R00.0 Tachycardia, unspecified; R07.89 Other chest pain; R11.0 Nausea; R06.02 Shortness of breath; Z03.818 Encounter for observation for suspected exposure to other biological agents ruled out; Z79.899 Other long term (current) drug therapy
CPT/HCPCS: 0241U; 71045; 80048; 80076; 81001; 81025; 83690; 83735; 84702; 85025; 96361; 96374; 96375; 99283; 99284; J1885; J2765

== ENCOUNTER → 2024-08-06 15:49 | Outpatient (BNV) | payer OTHER, SELFPAY | PROVIDERS: Emergency Provider Emergency Medicine; PCP Internal Medicine; Visit Provider Radiology Diagnostic Radiology | DX: R05.9 Cough, unspecified (principal) | CPT/HCPCS: 71045 ==

== ENCOUNTER 2024-11-05 01:41 | Emergency (ER) | payer OTHER, SELFPAY ==
--- NOTE | ~2024-11-05 | CT_ITS ---
CLINICAL HISTORY: diffuse abd pain, r o sbo CT Abdomen and Pelvis W Contrast COMPARISON: CT/NH/SR - CT ABDOMEN PELVIS W IV CON - 02/19/24 10:54 EDT FINDINGS: Normal liver. Normal spleen. Normal kidneys. Normal adrenal glands. Normal pancreas. No visible cholelithiasis. No biliary dilation. No evidence of bowel obstruction or colitis. The appendix is not identified, however, no secondary signs of acute appendicitis. Poorly distended bladder. Unremarkable uterus and ovaries. Small physiologic free fluid in the pelvis. No pneumoperitoneum. No lymphadenopathy. No acute fracture. No abdominal aortic aneurysm. IMPRESSION: No acute findings. This document has been electronically signed by: Casey Caban MD on 11/05/2024 04:44:10
[2024-11-05 01:44] VITALS: BP 101/60; PULSE 68; RESP 16; TEMP 36.3; O2SAT 98; BMI 22.1
--- NOTE | 2024-11-05 02:19 | ED_ITS ---
HPI - General Adult General Chief complaint: Abdominal Pain Stated complaint: Abdominal Pain Time Seen by Provider: 11/05/24 01:53 Source: patient Mode of arrival: ambulatory Limitations: no limitations History of Present Illness ED Provider: DR. Neal HPI narrative: 24-year-old female PMHx PID, ectopic , IBS presented with 1 day history of abdominal pain associated with nausea and vomiting, no fever, no chills, not passing flatus, feel abdominal bloated and distended. History of ectopic required right fallopian tube resection. No dysuria, no frequency urination, no vaginal discharge, no vaginal bleeding. Related Data Home Medications ?Medication ?Instructions ?Recorded ?Confirmed acetaminophen 500 mg tablet 500 mg PO Q6H PRN pain 04/04/23 04/17/24 albuterol sulfate 90 mcg/actuation 2 puff inhalation Q6H PRN wheezing 04/04/23 04/17/24 aerosol inhaler (Ventolin HFA) dicyclomine 10 mg capsule 10 mg PO Q6H PRN 11/27/23 04/17/24 Previous Rx's ?Medication ?Instructions ?Recorded famotidine 10 mg tablet (Acid 10 mg PO BEDTIME #30 tabs 02/28/24 Field Sales Trainer (famotidine)) simethicone 125 mg capsule (Gas 125 mg PO BID-QID PRN abdominal 02/28/24 Relief (simethicone)) distention #20 caps terconazole 0.8 % vaginal cream 1 appful vaginal BEDTIME 3 days 03/04/24 #20 grams menthol 0.44 %-zinc oxide 20.6 % 1 appl topical QID PRN hemorrhoids 03/13/24 topical ointment (Calmoseptine) #113 grams naproxen 500 mg tablet (Naprosyn) 500 mg PO BID #20 tabs 03/21/24 ondansetron 4 mg disintegrating 4 mg PO Q8H 4 days #12 tabs 04/17/24 tablet acetaminophen 500 mg tablet 500 mg PO Q6H PRN fever or pain 08/06/24 (Tylenol Extra Strength) #14 tabs ibuprofen 400 mg tablet 400 mg PO Q6H PRN fever or pain 08/06/24 #14 tabs ondansetron 4 mg disintegrating 4 mg PO Q8H PRN nausea and 08/06/24 tablet vomiting #10 tabs oseltamivir 75 mg capsule (Tamiflu) 75 mg PO Q12H 5 days #10 caps 08/06/24 Allergies Allergy/AdvReac Type Severity Reaction Status Date / Time Seasonal Allergies Allergy Intermediate Itchy Eyes Verified 11/05/24 01:46 Review of Systems 2 Review of Systems: All other systems are reviewed and are negative Constitutional: Reports as per HPI and Reports no additional constitutional complaints Eyes: Reports as per HPI and Reports no additional eye complaints Reports system reviewed and no additional complaints, except as documented Cardiovascular: Reports as per HPI and Reports no additional cardiovascular complaints Respiratory: Reports as per HPI and Reports no additional respiratory complaints Gastrointestinal: Reports as per HPI and Reports no additional gastrointestinal complaints Genitourinary: Reports no additional female genitourinary complaints Musculoskeletal: Reports no additional musculoskeletal complaints Skin/Breast: Reports system reviewed and no additional complaints, except as docu Psychiatric: Reports no additional psychiatric complaints Endocrine: Reports no additional endocrine complaints Hematologic/Lymphatic: Reports no additional hematologic/lymphatic complaints Allergic/Immunologic: Reports no additional allergic/immunologic complaints Reports system reviewed and no additional complaints, except as documented and Reports Abnormal speech present [facility] Past Medical History Medical History External hemorrhoids with complication Anxiety and depression Cough Cough due to LYNN inhibitor Seasonal allergies Low back pain Migraine with aura Asthma Surgical History History of salpingectomy H/O colonoscopy Family History Family History Paternal Grandmother Breast CA Mother Crohn disease Father Migraine Brother Bipolar 1 disorder Maternal Grandmother Heart disease Maternal Aunt Colon cancer Other Mental health disorder Social History Social History Housing: Apartment Alcohol intake: never Patient Tobacco Use Status: Never used Tobacco Smoked in Last 30 Days: No e-Cigarette/Vaping Use: Never Used Second Hand Smoke Exposure: No Use of substances other than those prescribed or required for medical reasons: No Substance Use Type: Marijuana Advance Directives: No Advance Directives Information Provided: Yes Do you have a plan to hurt others: No Plan Patient : No service: No Current occupational status: employed 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 Blood pressure elevated. Heart rate normal. Respiratory rate normal. Temperature normal. Oxygen saturation normal. Appearance: Alert. Oriented X3. No acute distress. Head: Normal external exam. Normocephalic. Atraumatic. No Mitchell signs noted. No raccoon eyes noted Eyes: PERRLA. EOMI. Conjunctiva and sclera normal. Eyelids normal. ENT: TM's Normal. Pharynx normal. Uvula midline. Moist mucous membranes. No trismus noted. No drooling noted. No muffled voice noted. Neck: Normal inspection. Neck supple. FROM. No adenopathy. Thyroid Normal. No meningeal signs. No neck mass noted. CVS: Normal heart rate and rhythm. Heart sound normal. No murmurs noted. Pulses normal throughout. Respiratory: No respiratory distress. Painless inspiration. Breath sounds normal. No wheezes/rales/rhonchi noted. Chest nontender. No accessory muscle usage noted or decreased air movement noted. Abdomen: Soft and nontender. Bowel sounds normal in all 4 quadrants. No distention noted. No organomegaly noted. No visible injury noted. Back: No CVA tenderness. Full range of motion noted. Skin: Skin warm and dry. Normal skin color. Normal skin turgor. No rashes/lesions/lacerations noted. Extremities: No lower extremity edema. Extremities exhibit normal range of motion. Extremities nontender. Neuro: Oriented X 3. Cranial nerve exam: II-XII are grossly intact No motor deficit. No sensory deficit. Reflexes normal. Course Reevaluation(s) Reevaluation #1: Patient is gradually start to feel better, no nausea, no vomiting, able to tolerate p.o. intake. CT abdomen pelvis shows no acute intra abdominal pathology. Time: 06:03 Medications Administered Discontinued Medications Generic Name Dose Route Start Last Admin Trade Name Freq PRN Reason Stop Dose Admin Diazepam 5 mg 11/05/24 05:07 11/05/24 05:24 Diazepam 10 Mg/2 Ml Cartridge IVPUSH 11/05/24 05:08 5 mg STAT STA Administration Hydromorphone HCl 1 mg 11/05/24 04:02 11/05/24 04:07 Hydromorphone Hcl 1 Mg/Ml Syringe IVPUSH 11/05/24 04:03 1 mg ONCE ONE Administration Protocol Sodium Chloride 1,000 mls @ 999 mls/hr 11/05/24 02:23 11/05/24 05:03 Ns IV 11/05/24 03:23 Infused .Q1H1M ONE Infusion Acetaminophen 1,000 mg in 100 mls @ 400 mls/hr 11/05/24 04:56 11/05/24 05:16 Ofirmev IV 11/05/24 05:10 Infused ONCE ONE Infusion Iohexol 85 ml 11/05/24 03:08 11/05/24 03:08 Iohexol 350 Mg/Ml 100 Ml Infus..Btl IV 11/05/24 03:09 85 ml ONCE ONE Administration Ketorolac Tromethamine 15 mg 11/05/24 02:23 11/05/24 02:45 Ketorolac Tromethamine 15 Mg/Ml Vial IVPUSH 11/05/24 02:24 15 mg ONCE ONE Administration Metoclopramide HCl 10 mg 11/05/24 05:07 11/05/24 05:24 Metoclopramide Hcl 10 Mg/2 Ml Vial IVPUSH 11/05/24 05:08 10 mg ONCE ONE Administration Morphine Sulfate 2 mg 11/05/24 02:23 11/05/24 02:45 Morphine Sulfate 2 Mg/Ml Cartridge IVPUSH 11/05/24 02:24 2 mg ONCE ONE Administration Protocol Ondansetron HCl 4 mg 11/05/24 02:23 11/05/24 02:45 Ondansetron Hcl 4 Mg/2 Ml Vial IVPUSH 11/05/24 02:24 4 mg ONCE ONE Administration Medical Decision Making Differential Diagnosis Differential Diagnoses: The differential diagnosis associated with the presentation includes (Acute gastritis, acute pancreatitis, acute cholecystitis, acute colitis, acute diverticulitis, acute appendicitis, electrolyte derangement, severe anemia, incarcerated hernia, UTI, pyelonephritis, .) Admission/Observation Consideration of admission/observation: Escalation of care including admission/observation considered Lab Data MDM Lab Attestation statement: I reviewed the patient's lab results. 11/05/24 02:20 11/05/24 02:20 Labs: Lab Results 11/05/24 11/05/24 11/05/24 Range/Units 02:20 02:20 02:20 WBC 10.5 (4.8-10.8) X10*3/uL RBC 4.80 (4.20-5.50) X10*6/uL Hgb 13.6 (12.0-16.0) g/dl Hct 38.3 (37.0-47.0) % MCV 79.8 L (80.0-98.0) fL MCH 28.3 (27.0-33.0) pg MCHC 35.5 H (31.0-35.0) g/dl RDW 13.2 (11.0-16.0) % Plt Count 261 (160-400) X10*3/uL MPV 10.5 (9.4-12.3) fL Immature Gran % (Auto) 0.3 (0.0-0.4) % Neut % (Auto) 66.0 (45-73) % Lymph % (Auto) 26.1 (20-40) % [place] % (Auto) 6.1 (2-11) % Eos % (Auto) 1.0 (0-4) % Baso % (Auto) 0.5 (0-2) % Lymph # (Auto) 2.7 (1.2-4.9) X10*3/uL [place] # (Auto) 0.6 (0.1-1.2) X10*3/uL Eos # (Auto) 0.1 (0.0-0.4) X10*3/uL Baso # (Auto) 0.1 (0.0-0.2) X10*3/uL Abs Immat Gran (auto) 0.03 (0.00-0.03) X10*3/uL Absolute Neuts (auto) 6.9 (2.0-8.3) x10*3/uL Absolute Nucleated RBC 0.000 (0.0-0.012) X10*3/uL Nucleated RBC % (auto) 0.0 (0.0-0.2) /100WBC Sodium 139 (135-145) mmol/L Potassium 4.4 D (3.3-5.1) mmol/L Chloride 109 H (96-108) mmol/L Carbon Dioxide 18 L (22-29) mmol/L Anion Gap 16 (12-20) BUN 8 L (9-16) mg/dL Creatinine 0.69 (0.5-1.4) mg/dL Estim Creat Clear Calc 103.0 Estimated GFR > 60 Random Glucose 107 (60-115) mg/dL Calcium 10.0 D (8.4-10.2) mg/dL Magnesium 1.9 Cancelled (1.6-2.6) mg/dL Total Bilirubin 0.7 (0.0-1.0) mg/dL AST 40 H (5-31) U/L ALT 19 (0-31) U/L Alkaline Phosphatase 56 (39-117) U/L Total Protein 7.6 (6.5-8.0) g/dL Albumin 4.5 (3.5-5.0) g/dL Lipase 13 Cancelled (8-78) U/L Urine Color Dark Yellow Urine Appearance Clear Urine pH 6.0 (5.0-9.0) Ur Specific [place] >= 1.030 H (1.005-1.025) Urine Protein Trace (Neg-Trace) mg/dL Urine Glucose (UA) Negative (Negative) mg/dL Urine Ketones 40 (Negative) mg/dL Urine Blood Negative (Negative) Urine Nitrite Negative (Negative) Ur Leukocyte Esterase Trace H (Negative) Urine RBC 0-2 (0-2) /HPF Urine WBC 0-5 (0-5) /HPF Ur Squamous Epith Cells 0-2 (0-2) /HPF Urine Bacteria None Seen (None Seen) Hyaline Casts 0-2 (0-2) /LPF Urine Test NEGATIVE (NEGATIVE) Independent Interpretation I performed an independent interpretation of an: CT Scan (Abdomen pelvis: No acute intra-abdominal pathology.) Radiology Impression Discussion of test interpretation with radiology: I have reviewed the radiologist's reading. Discharge Plan Discharge Clinical Impression: History of IBS, Abdominal pain Patient Disposition: Home, Self-Care Instructions: Abdominal Pain (ED) Prescriptions: No Action naproxen [Naprosyn] 500 mg tablet 500 mg PO BID Qty: 20 0RF oseltamivir [Tamiflu] 75 mg capsule 75 mg PO Q12H 5 Days Qty: 10 0RF ibuprofen 400 mg tablet 400 mg PO Q6H PRN (Reason: fever or pain) Qty: 14 0RF acetaminophen [Tylenol Extra Strength] 500 mg tablet 500 mg PO Q6H PRN (Reason: fever or pain) Qty: 14 0RF ondansetron 4 mg tablet,disintegrating 4 mg PO Q8H PRN (Reason: nausea and vomiting) Qty: 10 0RF albuterol sulfate [Ventolin HFA] 90 mcg/actuation HFA aerosol inhaler 2 puff inhalation Q6H PRN (Reason: wheezing) acetaminophen 500 mg tablet 500 mg PO Q6H PRN (Reason: pain) simethicone [Gas Relief (simethicone)] 125 mg capsule 125 mg PO BID-QID PRN (Reason: abdominal distention) Qty: 20 1RF famotidine [Acid Field Sales Trainer (famotidine)] 10 mg tablet 10 mg PO BEDTIME Qty: 30 0RF dicyclomine 10 mg capsule 10 mg PO Q6H PRN terconazole 0.8 % cream 1 appful vaginal BEDTIME 3 Days Qty: 20 0RF menthol-zinc oxide [Calmoseptine] 0.44-20.6 % ointment 1 appl topical QID PRN (Reason: hemorrhoids) Qty: 113 2RF ondansetron 4 mg tablet,disintegrating 4 mg PO Q8H 4 Days Qty: 12 0RF Referrals: Po,Neel Henry MD [Primary Care Provider] - Print Language: Portuguese
[2024-11-05 02:26] LABS: MANUAL DIFF FLAG NO
[2024-11-05 02:27] LABS: Basophils Absolute Auto 0.1 X10*3/uL (0.0-0.2); Basophils Percent Auto 0.5 % (0-2); Eosinophils Absolute Auto 0.1 X10*3/uL (0.0-0.4); Hematocrit 38.3 % (37.0-47.0); Hemoglobin 13.6 g/dl (12.0-16.0); Imm Gran Abs Auto 0.03 X10*3/uL (0.00-0.03); Imm Gran Pct Auto 0.3 % (0.0-0.4); Lymphocytes Absolute Auto 2.7 X10*3/uL (1.2-4.9); Lymphocytes Percent Auto 26.1 % (20-40); Mean Corpuscular HGB Conc 35.5 g/dl (31.0-35.0); Mean Corpuscular Hemoglobin 28.3 pg (27.0-33.0); Mean Corpuscular Volume 79.8 fL (80.0-98.0); Mean Platelet Volume 10.5 fL (9.4-12.3); Monocytes Absolute Auto 0.6 X10*3/uL (0.1-1.2); Monocytes Percent Auto 6.1 % (2-11); Neutrophils Absolute Auto 6.9 x10*3/uL (2.0-8.3); Platelet Count 261 X10*3/uL (160-400); Red Cell Distribution Width 13.2 % (11.0-16.0); White Blood Count 10.5 X10*3/uL (4.8-10.8)
[2024-11-05 02:34] LABS: Appearance Urine Clear; Color Urine Dark Yellow; Glucose Urine UA Negative (Negative); Leukocyte Esterase Urine Trace (Negative); Nitrite Urine Negative (Negative); Specific Gravity - Urine >= 1.030 (1.005-1.025); UMIC TRIGGER UACC YES; Urine Blood Negative (Negative); Urine Ketones 40 mg/dL (Negative); Urine Protein Trace mg/dL (Neg-Trace)
[2024-11-05 02:36] LABS: UPreg QC Valid YES; Urine Pregnancy NEGATIVE (NEGATIVE)
[2024-11-05 02:45] VITALS: RESP 17
[2024-11-05] MEDS: 0.9 % Sodium Chloride 1,000 ML 999 ML IV (02:45)
[2024-11-05] MEDS: ondansetron HCL 4 MG/2 ML VIAL IVPUSH (02:45)
[2024-11-05] MEDS: Ketorolac Tromethamine 15 MG/ML VIAL IVPUSH (02:45)
[2024-11-05] MEDS: Morphine Sulfate 2 MG/ML CARTRIDGE IVPUSH (02:45)
--- NOTE | 2024-11-05 02:50 | PC.NURSE ---
pt a&ox4, respirations even and unlabored. pt reports intermittent n/v x2 years. reports at times it does get worse with abdominal pain. pt reports today she developed epigastric pain, nausea and vomiting which worsened throughout the day. pt reports she is unable to keep down po. 22g placed in left forearm, labs obtained pt medicated per aug.
[2024-11-05 02:55] LABS: Alanine Aminotransferase 19 U/L (0-31); Albumin Level 4.5 g/dL (3.5-5.0); Alkaline Phosphatase 56 U/L (39-117); Anion Gap 16 (12-20); Aspartate Amino Transferase 40 U/L (5-31); Bilirubin Total 0.7 mg/dL (0.0-1.0); Blood Urea Nitrogen 8 mg/dL (9-16); Carbon Dioxide 18 mmol/L (22-29); Chloride 109 mmol/L (96-108); Estimated Glomerular Filt Rate > 60; Glucose Random 107 mg/dL (60-115); Lipase 13 U/L (8-78); Magnesium 1.9 mg/dL (1.6-2.6); Potassium 4.4 mmol/L (3.3-5.1); Sodium 139 mmol/L (135-145); Total Protein 7.6 g/dL (6.5-8.0)
[2024-11-05] MEDS: iohexoL 350 MG/ML 100 ML INFUS..BTL 85 ML IV (03:08)
[2024-11-05 03:09] LABS: Bacteria Urine None Seen (None Seen); Hyaline Casts Urine 0-2 /LPF (0-2); RBC Urine 0-2 /HPF (0-2); Squamous Epithelial Cell Urine 0-2 /HPF (0-2); WBC Urine 0-5 /HPF (0-5)
[2024-11-05 04:07] VITALS: RESP 18
[2024-11-05] MEDS: HYDROmorphone HCl 1 MG/ML SYRINGE IVPUSH (04:07)
--- NOTE | 2024-11-05 04:09 | PC.NURSE ---
pt reporting increased pain at this time, pt medicated per mar.
[2024-11-05] MEDS: Acetaminophen 1,000 MG/100 ML PIGGYBACK 400 MG IV (05:01)
[2024-11-05] MEDS: diazePAM 10 MG/2 ML CARTRIDGE 5 MG IVPUSH (05:24)
[2024-11-05] MEDS: Metoclopramide HCl 10 MG/2 ML VIAL IVPUSH (05:24)
[2024-11-05 07:01] VITALS: BP 128/78; PULSE 88; RESP 17; TEMP 37.5; O2SAT 100
== END 2024-11-05 07:01 | disposition home or self-care (01) ==
PROVIDERS: Emergency Provider Emergency Medicine; PCP Internal Medicine
DX: K58.9 Irritable bowel syndrome, unspecified (principal); R10.9 Unspecified abdominal pain
CPT/HCPCS: 36415; 74177; 80053; 81001; 81025; 83690; 83735; 85025; 96361; 96374; 96375; 99285; J0131; J1171; J1885; J2270; J2405; J2765; J3360; Q9967

== ENCOUNTER → 2024-11-05 02:18 | Outpatient (BNV) | payer OTHER, SELFPAY | PROVIDERS: Emergency Provider Emergency Medicine; PCP Internal Medicine; Visit Provider Radiology Diagnostic Radiology | DX: R10.9 Unspecified abdominal pain (principal) | CPT/HCPCS: 74177 ==

== ENCOUNTER 2024-11-05 21:42 | Emergency (ER) | payer OTHER, SELFPAY ==
--- NOTE | 2024-11-05 | ECG_ITS ---
Test Reason : SYNCOPE Blood Pressure : */* mmHG Vent. Rate : 97 BPM Atrial Rate : 97 BPM P-R Int : 130 ms QRS Dur : 70 ms QT Int : 366 ms P-R-T Axes : 71 48 22 degrees QTcB Int : 464 ms Normal sinus rhythm with sinus arrhythmia Nonspecific ST abnormality Abnormal ECG When compared with ECG of 02-Jan-2024 04:04, Nonspecific T wave abnormality has replaced inverted T waves in Inferior leads Referred By: Generic ED Physician Electronically Signed By: ALEAH TEJADA MD
[2024-11-05 22:00] VITALS: PULSE 94; RESP 27; TEMP 36.3; O2SAT 100; BMI 21.6
[2024-11-05 22:08] VITALS: BP 138/49; PULSE 98; O2SAT 100
--- OUTSIDE RECORDS SUMMARY | 2024-11-05 22:15 | XMS_ITS | Encounter Summary ---
Author Organization [facility] Address [address] [place], [place] [id number] Phone Care Team Providers Care Unload Associate Name Role Phone Cathie Benavidez MD Primary Care Provider [phone] Encounter Details Date Type Department Care Team (Late st Contact Info) Description 12/09/2015 Documentation [facility] Family Medicine [address] [place] [address] Family Medicine, Physician [address] [place], [place] [id number] Social History Tobacco Use Types Packs/Day Years [...] on filedocumented in this encounter Care Teams Unload Associate Relationship Specialty Start Date End Date Cathie Benavidez MD [address] [place] [address] PCP - General Pediatrics 08/14/19 10/11/22 documented as of this encounter
--- OUTSIDE RECORDS SUMMARY | 2024-11-05 22:15 | XMS_ITS | Encounter Summary ---
Author Organization [facility] Address [address] [place], [place] [phone] Phone Care Team Providers Care Production Tech Name Role Phone Cathie Benavidez MD Primary Care Provider [phone] Encounter Details Date Type Department Care Team (Late st Contact Info) Description 11/07/2016 Documentation [facility] [place] Family Medicine [address] [place] [address] Family Medicine, Physician [address] [id number] Social History Tobacco Use Types Packs/Day Years [...] on filedocumented in this encounter Care Teams Production Tech Relationship Specialty Start Date End Date Cathie Benavidez MD [address] [place] [address] PCP - General Pediatrics 08/14/19 10/11/22 documented as of this encounter
--- OUTSIDE RECORDS SUMMARY | 2024-11-05 22:15 | XMS_ITS | Encounter Summary ---
Author Organization [facility] Address [address] [place], [place] [phone] Phone Care Team Providers Care Console Attendant Name Role Phone Cathie Benavidez MD Primary Care Provider [phone] Encounter Details Date Type Department Care Team (Late st Contact Info) Description 12/09/2015 [place]ation [facility] [place] [address] [place] [address] Family Medicine, Physician [address] [phone] Social History Tobacco Use Types Packs/Day Years [...] on filedocumented in this encounter Care Teams Console Attendant Relationship Specialty Start Date End Date Cathie Benavidez MD [address] [place] [address] PCP - General Pediatrics 08/14/19 10/11/22 documented as of this encounter
--- OUTSIDE RECORDS SUMMARY | 2024-11-05 22:15 | XMS_ITS | Patient Health Record ---
Author Organization [facility] Address [address] [place] [address] Care Team Providers Care Glazing Department Supervisor Name Role Phone Neel Duque MD Primary Care Provider Paul Cortes Jr Unavailable Allergies No Known Allergies Results Component Value Reference Range Notes GI PANEL Reviewed date:03/14/2024 11:09:52 AM Interpretation: Performing Lab:[facility], [address] [place] [phone] Notes/Report: Campylobacter Not Detected Not Detect. Plesiomonas [...] is performed by Multiplexed PCR, utilizing the CLARED Array. Ur Preg Test Reviewed date:11/15/2023 07:02:24 AM Interpretation: Performing Lab:[facility], [address] [place] [phone] Notes/Report: Urine NEGATIVE NEGATIVE This test was developed to detect early . False negative results may occur after the 5th - 7th week of when using this test method. If clinically indicated, consider a serum hCG. Pathology Reviewed date:11/16/2023 10:20:06 AM Interpretation: Performing Lab:[facility], [address] [place] [phone] Notes/Report: --- Name: Kishore Ball Age/Sex: 23/F : 2000 Unit#: [id number] Attend Dr: Paul Lu MD Re11/14/23 Status : [facility] Location: [facility] Disch: --- SPEC : [id number] RECD : 11/14/23 STATUS: GINGER MASON NUM: [id number] TREVIN: 11/14/231158 [facility] DR: Paul Lu MD ENTERED: 11/14/23- 25 SP TYPE: Surgical OTHR DR: Neel Duque MD ORDERED: HE Stain/9, Gross Micro L4/3, IHC, Special st. 2/, H. pylori, AB/PAS/3 Diagnosis A. Duodenum, biopsy: Duodenal mucosa with preserved villi and no specific change. B. Gastric antrum, biopsy: Gastric antral mucosa with minimal chronic inactive inflammation; negati ve for H. pylori and dysplasia (see comment). C. Gastroesophageal junction, biopsy: Squamocolumnar mucosa with moderate chronic inflammation; negati ve for intestinal metaplasia and dysplasia. Comment: (B): Detached strips of intestinal type epithelium present, likely duodenal contaminant but intestinal metaplasia cannot be completely excluded. Clinical History Pre-Op Dx: Epigastri c pain Post-Op Dx: Normal upper Microscopic Description Microscopic sections reviewed. Immunostain for H. pylori on B is negative.? AB/PAS on A is negative for evidenc e of chronic injury.? AB/PAS on B shows detached fragments of intestinal type epithelium. AB/ PAS on C is negative for intestinal metaplasia.? Controls stain appropriately. Material Received A. Duodenum bx's B. Antrum bx's C. GE junction bx's Gross Description Received in three parts. Part A: Received in formalin labeled ?duodenum bx's? are 2 white-pink irregular tissue fragments measuring 0.2 and 0.3 cm, submitted in toto in a cassette labeled A. Part B: Received in formalin labeled ?antrum bx's? are 2 white-pink irregular and rectangular tissue fragments measuring 0.2 and 0.35 cm, submitted in toto a cassette labeled B. Part C: Received in formalin labeled ?GE junction bx's? are 2 white-pink irregular tissue fragments each measuring 0.3 cm, submitted in toto in a cassette labeled C. CONTINUED ON NEXT PAGE --- Name: Kishore Ball Age/Sex: 23/F : 2000 Unit#: [id number] Attend Dr: Paul Lu MD Re11/14/23 Status : [facility] Location: [facility] Disch: --- SPEC : [id number] REC -[id number] STATUS: GINGER MASON NUM: [id number] TREVIN: 11/14/23-[address] [facility] [address]: Paul uL MD ENTERED: 11/14/23-12 25 SP TYPE: Surgical OTHR DR: Neel Duque MD ORDERED: HE Stain/9, Gross Micro L4/3, IHC, Special st. 2/3, H. pylori, AB/PAS/3 Gross Description (Continued) CEDS Special studies orde red and performed: Immunostain for H. pylori on B1; AB/PAS stains on A1, B1 and C1. Copies To: Paul Lu MD [address] [place] [address] [id number] [place] [address] Neel Duque MD [address] [place] [address] [address] [place] [address] --- Signed (signature on file) Ella [place] 11/15/23 1810 --- END OF REPORT Complete Blood Count Auto Di ff Reviewed date:03/14/2024 10:11:46 AM Interpretation: Performing Lab:[facility], [address] [place] [phone] Notes/Report: White Blood Count 6.2 4.8-10.8 X10*3/uL [...] 0.0-0.2 /100WBC Neutrophils Absolute Auto 3.3 2.0-8.3 x10*3/uL Imm Gran Abs Auto 0.01 0.00-0.03 X10*3/uL Lymphocytes Absolute Auto 2.4 1.2-4.9 X10*3/uL Monocytes Absolute Auto 0.4 0.1-1.2 X10*3/uL Eosinophils Absolute Auto 0.1 0.0-0.4 X10*3/uL Basophils Absolute Auto 0.0 0.0-0.2 X10*3/uL NRBC Abs Auto 0.000 0.0-0.012 X10*3/uL Liver Panel Reviewed date:03/14/2024 10:10:20 AM Interpretation: Performing Lab:[address] [phone] Notes/Report: Bilirubin Total 0.4 0.0-1.0 mg/dL Bilirubin Direct 0.2 0.0-0.5 mg/dL Aspartate Amino Transferase 18 5-31 U/L Alanine Aminotransferase 13 0-31 U/L Total Protein 7.5 6.5-8.0 g/dL Albumin Level 4.6 3.5-5.0 g/dL Alkaline Phosphatase 69 39-117 U/L Lipase Reviewed date:03/14/2024 10:10:12 AM Interpretation: Performing Lab:[facility], [address] [place] [phone] Notes/Report: Lipase 16 8-78 U/L TSH reflex Free T4 Reviewed date:03/14/2024 10:10:04 AM Interpretation: Performing Lab:[address] [phone] Notes/Report: TSH reflex Free T4 0.54 0.32-4.0 uIU/mL Leukocytes Stool Qualitative Reviewed date:03/14/2024 11:09:45 AM Interpretation: Performing Lab:[address] [address] Notes/Report: Leukocytes Stool Qualitative NEGATIVE NEGATIVE Ova and Parasite Reviewed date:03/21/2024 09:47:12 AM Interpretation: Performing Lab:[facility], [address] [place] [phone] Notes/Report: Ova and Parasite SEE NOTE OVA AND PARASITES, CONC AND PERM SMEAR Micro Number: [id number] Test Status: Final Specimen Source: Stool Specimen Quality: Adequate CONCENTRATION 1: No ova or parasites seen TRICHROME 1: No ova or parasites seen Routine Ova and Parasite exam may not detect some parasites that occasionally cause diarrheal illness. Cryptosporidium Antigen and/or Cyclospora Isospora Exam may be ordered to detect these parasites. For additional information, please refer to https://Wikidata.inSparq/faq/F [email or web address] (This link is being provided for informational/ educational purposes only.) THIS TEST WAS PERFORMED AT: [facility] [address] [phone] RAKESH DIAL MD Reason For Referral No Information Medications Medication SIG (Take, Route, Frequency, Duration) Notes Start Date End Date Status Ibuprofen 600 MG Oral for 11 A ctive Ventolin HFA 108 (90 Base) MCG/ACT Inhalation for 25 Active metroNIDAZOLE 500 MG TAKE 1 TABLET BY MO UT EVERY 12 HOURS FOR 7 DAYS Oral for 7 Active Progesterone 200 MG TAKE 1 CAPSULE BY MO UT EVERY DAY AT BEDTIME FOR 5 DAYS Oral for 5 Active Doxycycline Hyclate 100 MG Oral for 14 Active Ketorolac Tromethamine 10 MG Oral for 4 Active Ondansetron 4 MG Oral for 4 Ac tive Gas Relief Extra Strength 125 MG TAKE 1 CAPSULE BY MOUTH 2-4 TIMES A DAY NEEDED Oral for 5 Active Dicyclomine HCl 10 MG 1 tablet Orally 2- 4 times a day 10/25/2023 Active Omeprazole 20 MG 1 capsule 30 minutes before morning meal Orally Once a day for 30 day(s) 10/25/2023 Active Acetaminophen Extra Strength 500 MG Oral for 8 Active Immunizations Vaccine Route Administration Date Status Comme nts Influenza Unknown 03/06/2023 Refused Influenza Unknown 09/09/2024 Refused Social History Tobacco Use: Social History Observation Description Date Details (start date - stop date) Never Smoker NA - NA Tobacco Use/Smoking Question Answer Notes Patient is a nonsmoker Alcohol Screen Question Answer Notes Did you have a drink containing alcohol in the p ast year? No Points 0 Interpretation Negative Problems Problem Type SNOMED Code ICD Code Onset Dates Problem Status W/U Status Risk Notes Problem 32314488 Epigastric pain (R10.13) Active confirmed Problem 47340410 Change in bowel habits (R19.4) Active confirmed Problem 339901516 Gastroesophageal reflux disease, unspecified whether esophagitis present (K21.9) Active confirmed Vital Signs Temperature 97.1 degrees Fahrenheit 09/09/2024 Blood pressure diastolic 01 mm Hg 09/09/2024 Height 63 in 09/09/2024 Blood pressure systolic 001 mm Hg 09/09/2024 Weight 127.2 lbs 09/09/2024 BMI 22.53 kg/m2 09/09/2024 Encounters Encounter Location Date Provider Diagnosis [facility] [address] [place], [place] [id number] 11/14/2023 Paul Lu Jr Epigastric pain R10.13 [facility] [address] [place] [phone] 03/11/2024 Paul Lu Jr Gastroesophageal reflux disease, unspecified whether esophagitis present K21.9 and Change in bowel habits R19.4 [facility] [address] [place] [phone] 09/09/2024 Paul Lu Jr Gastroesophageal reflux disease, unspecified whether esophagitis present K21.9 and Change in bowel habits R19.4 [facility] [address] [place] [phone] 11/16/2023 Paul Lu Jr [facility] [address] [place] [phone] 02/21/2024 Paul Lu Jr [facility] [address] [place] [phone] 03/01/2024 Paul Lu Jr [facility] [address] [place] [phone] 03/14/2024 Paul Lu Jr Assessments Encounter Date Diagnosis (ICD Code) Assessment Notes Treatment Notes Treatment Clinical Notes Section Notes 11/14/2023 Epigastric pain (ICD-10 - R10.13) 03/11/2024 Change in bowel habits (ICD-10 - R19.4) We discussed her symptoms today. Reflux symptoms are under good control on omeprazole and she will continue this. Her diarrheal symptoms will be evaluated further with stool specimens. For her stomach symptoms, we recommended she continue to use dicyclomine and simethicone. Followup will be in 6 months. She will have a TSH level. 03/11/2024 Gastroesophageal reflux disease, unspecified whether esophagitis present (ICD-10 - K21.9) Daily bowel care program material was printed We discussed her symptoms today. Reflux symptoms are under good control on omeprazole and she will continue this. Her diarrheal symptoms will be evaluated further with stool specimens. For her stomach symptoms, we recommended she continue to use dicyclomine and simethicone. Followup will be in 6 months. She will have a TSH level. 09/09/2024 Gastroesophageal reflux disease, unspecified whether esophagitis present (ICD-10 - K21.9) Gastroesophageal reflux disease material was printed At this time, she is doing well. She will continue omeprazole for her reflux. We discussed diet, lifestyle modifications , and weight management regarding the treatment of reflux. Her change in bowel habits appears most consistent with irritable bowel syndrome, and we discussed the treatment of this today. She will continue vroi-dhn-rszc ter simethicone. Follow-up will be in 1 year. 09/09/2024 Change in bowel habits (ICD-10 - R19.4) At this time, she is doing well. She will continue omeprazole for her reflux. We discussed diet, lifestyle modifications , and weight management regarding the treatment of reflux. Her change in bowel habits appears most consistent with irritable bowel syndrome, and we discussed the treatment of this today. She will continue ocwj-vhq-ygsp ter simethicone. Follow-up will be in 1 year. Plan Of Treatment Pending Test Test Name Order Date LIVER PROFILE 03/11/2024 LIPASE 03/11/2024 CBC w/o DIFF 03/11/2024 STOOL WBC 03/11/2024 OVA & PARASITES (O&P) 03/11/2024 TSH REFLEX FREE T4 03/11/2024 Future Test Test Name Order Date COLONOSCOPY 03/06/2023 UPPER GI ENDOSCOPY 10/25/2023 Next Appt Details Provider Name:Paul savage Jr, 09/10/2025 10:20:00 AM, [address] [place] [address], [address], [place], [address], Insurance Providers Payer Name Payer Address Payer Phone Subscriber Number Group Number Insured Name Patient Relationship to Insured Coverage Start Date Coverage End Date [facility] [address] [address] [place], [place] [id number] IFEOMA BALL Self - patient is the insured Medical (General) History Medical History History ICD Code Anxiety/depression Asthma Migraine headaches Seasonal allergies Colonoscopy 04/17 normal biopsies, vick n polyp, ten-year followup Endoscopy 11/16 no Angela's esophagus or H. pylori or celiac disease Surgical History Surgery Date(Month/Year) Salpingectomy for ruptured tubal pregnan cy 01/16 Hospitalization History Reason Date(Month/Year)
--- OUTSIDE RECORDS SUMMARY | 2024-11-05 22:15 | XMS_ITS | Encounter Summary ---
Author Organization [facility] Address [address] [place] [phone] Phone Care Team Providers Care Manager Intensive Care Unit Name Role Phone Cathie Benavidez MD Primary Care Provider [phone] Encounter Details Date Type Department Care Team (Late st Contact Info) Description 02/09/2017 Documentation [facility] [facility] [address] [place] [address] Family Medicine, Physician [address], [place] [phone] Social History Tobacco Use Types Packs/Day Years [...] on filedocumented in this encounter Care Teams Manager Intensive Care Unit Relationship Specialty Start Date End Date Cathie Benavidez MD [address] [place] [phone] PCP - General Pediatrics 08/14/19 10/11/22 documented as of this encounter
--- OUTSIDE RECORDS SUMMARY | 2024-11-05 22:15 | XMS_ITS ---
Author Organization [facility] Address [address] [place] [address] Care Team Providers Care Glass Mould Cleaner Name Role Phone Neel Duque MD Primary Care Provider Paul Cortes Jr Unavailable [phone] Allergies No Known Allergies REASON FOR VISIT Patient presents today for abdominal pain. Medications Medication SIG (Take, Route, Frequency, Duration) Notes Start Date End Date Status Ibuprofen 600 MG Oral for 11 A ctive Gas Relief Extra Strength 125 MG TAKE 1 CAPSULE BY MOUTH 2-4 TIMES A DAY NEEDED Oral for 5 Active Dicyclomine HCl 10 MG 1 tablet Orally 2- 4 times a day 10/25/2023 Active Omeprazole 20 MG 1 capsule 30 minutes before morning meal Orally Once a day for 30 day(s) 10/25/2023 Active Acetaminophen Extra Strength 500 MG Oral for 8 Active Ventolin HFA 108 (90 Base) MCG/ACT Inhalation for 25 Active metroNIDAZOLE 500 MG TAKE 1 TABLET BY [facility] EVERY 12 HOURS FOR 7 DAYS Oral for 7 Active Progesterone 200 MG TAKE 1 CAPSULE BY [facility] EVERY DAY AT BEDTIME FOR 5 DAYS Oral for 5 Active Doxycycline Hyclate 100 MG Oral for 14 Active Ketorolac Tromethamine 10 MG Oral for 4 Active Ondansetron 4 MG Oral for 4 Ac tive Immunizations Vaccine Route Administration Date Status Comme nts Influenza Unknown 09/09/2024 Refused Social History Tobacco Use: Social History Observation Description Date Details (start date - stop date) Never Smoker NA - NA Tobacco Use/Smoking Question Answer Notes Patient is a nonsmoker Alcohol Screen Question Answer Notes Did you have a drink containing alcohol in the p ast year? No Points 0 Interpretation Negative Vital Signs Temperature 97.1 degrees Fahrenheit 09/10/19 25 Blood pressure systolic 001 mm Hg 09/10/19 25 Blood pressure diastolic 01 mm Hg 025 Height 63 in 09/09/2024 Weight 127.2 lbs 09/09/2024 BMI 22.53 kg/m2 09/09/2024 Encounters Encounter Location Date Provider Diagnosis [facility] [address] [place] [address] 09/09/2024 Paul Lu Jr Gastroesophageal reflux disease, unspecified whether esophagitis present K21.9 and Change in bowel habits R19.4 Assessments Encounter Date Diagnosis (ICD Code) Assessment Notes Treatment Notes Treatment Clinical Notes Section Notes 09/09/2024 Gastroesophageal reflux disease, unspecified whether esophagitis present (ICD-10 - K21.9) Gastroesophageal reflux disease material was printed At this time, she is doing well. She will continue omeprazole for her reflux. We discussed diet, lifestyle modification s, and weight management regarding the treatment of reflux. Her change in bowel habits appears most consistent with irritable bowel syndrome, and we discussed the treatment of this today. She will continue yrek-cmv-aed nter simethicone. Follow-up will be in 1 year. 09/09/2024 Change in bowel habits (ICD-10 - R19.4) At this time, she is doing well. She will continue omeprazole for her reflux. We discussed diet, lifestyle modification s, and weight management regarding the treatment of reflux. Her change in bowel habits appears most consistent with irritable bowel syndrome, and we discussed the treatment of this today. She will continue zlit-tyc-ttq nter simethicone. Follow-up will be in 1 year. Plan Of Treatment Treatment Notes Assessment Notes Gastroesophageal reflux dise ase, unspecified whether esophagitis present Gastroesophageal reflux disease material was printed Next Appt Details Follow Up: 1 Year, Reason: Provider Name:Paul savage Jr, 09/10/2025 10:20:00 AM, [address], [address], [place], [address], Progress Notes * JOSIAH BALLB:[birth year] (23 yo F)Acc No.[id number]:09/09/2024 Progress Notes Patient:?IFEOMA BALL Provider:?Paul Lu MD :2000???Age:23 Y???Sex:Female D ate:09/09/2024 Address:[address] [place] [address] , [address], [id number] Pcp:Neel Duque MD Subjective: * Chief Complaints: * ???1. Patient presents today for abdominal pain.. * HPI: ???New symptom(s):? The patient is a pleasant 23-year-old woman seen today in follow-up of gastroesophageal reflux disease and change in bowel habits. Since we saw her last in February, she has been doing well. She continues on omeprazole for her reflux symptoms and finds she only needs to take this a couple of times per week. She has no dysphagia, hematemesis, or melena. Weight and appetite have been stable. She does complain of some gas symptoms for which she uses jjol-igy-wopzgvn simethicone. She also uses dicyclomine on a as needed basis, usually about 2 times per week as well. * Medical History:?Anxiety/dep ression, Asthma, Migraine headaches, Seasonal allergies, Colonoscopy 04/17 normal biopsies, benign polyp, ten-year followup, Endoscopy 11/16 no Angela's esophagus or H. pylori or celiac disease. * Surgical History:?Salpingect morena for ruptured tubal 01/16. * Family History:?Father: angel gould?Mother: alive.? No family history of liver cancer. Mother's uncle had colon cancer. Mom has crohn's, and two other family members have crohns. * Social History:?Tobacco Use:?Tobacco Use/Smoking?Patient is a?nonsmoker.?Drugs/Alcohol:?Alcohol Screen?Did you have a drink containing alcohol in the past year??No,?Points?0,?Interpretation?Negative.?Miscellaneous:?Marital status: single. * Medications:?Taking Ondanset luisito 4 MG Tablet Disintegrating Oral , Taking Ketorolac Tromethamine 10 MG Tablet Oral , Taking Doxycycline Hyclate 100 MG Capsule Oral , Taking Progesterone 200 MG Capsule TAKE 1 CAPSULE BY MOUTH EVERY DAY AT BEDTIME FOR 5 DAYS Oral , Taking metroNIDAZOLE 500 MG Tablet TAKE 1 TABLET BY MOUTH EVERY 12 HOURS FOR 7 DAYS Oral , Taking Ventolin HFA 108 (90 Base) MCG/ACT Aerosol Solution Inhalation , Taking Ibuprofen 600 MG Tablet Oral , Taking Acetaminophen Extra Strength 500 MG Tablet Oral , Taking Omeprazole 20 MG Capsule Delayed Release 1 capsule 30 minutes before morning meal Orally Once a day , Taking Dicyclomine HCl 10 MG Capsule 1 tablet Orally 2-4 times a day , Taking Gas Relief Extra Strength 125 MG Capsule TAKE 1 CAPSULE BY MOUTH 2-4 TIMES A DAY NEEDED Oral , Medication List reviewed and reconciled with the patient * Allergies:?N.K.D.A. Objective: * Vitals:?Wt: 127.2 lbs, Ht: 6 3 in, BMI:22.53Index, BP: 001/01 mm Hg, Temp: 97.1, Wt-k.7. * Examination: ???General Examination: ???On examination today, she appears well. Skin is anicteric. Lungs are clear. Heart shows a regular rate and rhythm. Abdomen is soft without focal masses or tenderness. Assessment: * Assessment: 1.?Gastroesophageal reflux d isease, unspecified whether esophagitis present - K21.9 (Primary)???2.?Change in bowel habits - R19.4??? At this time, she is doing w ell. She will continue omeprazole for her reflux. We discussed diet, lifestyle modifications, and weight management regarding the treatment of reflux. Her change in bowel habits appears most consistent with irritable bowel syndrome, and we discussed the treatment of this today. She will continue ueem-wbc-jefbqae simethicone. Follow-up will be in 1 year. Plan: * Treatment: * Immunizations:? Influenza (Not administered - Refused: Patient decision) * Procedure Codes:?G9903 Pt sc rn tbco id as non user, G8785 BP SCR NOT PRFRM REC REASON NOS * Follow Up:?1 Year * * Sign off status: Completed true * Provider:?Paul Lu MD Date:?0 09/09/2024 Generated for Shalini nunez/Amber/eTransmitting on:?11/05/2024 10:15 PM EDT History and Physical Notes * HPI (History of Present Illness) Category Sub-Category Detail Notes Category Not es New symptom(s) The patient i s a pleasant 23-year-old woman seen today in follow-up of gastroesophageal reflux disease and change in bowel habits. Since we saw her last in February, she has been doing well. She continues on omeprazole for her reflux symptoms and finds she only needs to take this a couple of times per week. She has no dysphagia, hematemesis, or melena. Weight and appetite have been stable. She does complain of some gas symptoms for which she uses jxug-jss-moertdr simethicone. She also uses dicyclomine on a as needed basis, usually about 2 times per week as well. Examination Category Sub-Category Detail Notes Category Not es General Examination On exami nation today, she appears well. Skin is anicteric. Lungs are clear. Heart shows a regular rate and rhythm. Abdomen is soft without focal masses or tenderness.
--- OUTSIDE RECORDS SUMMARY | 2024-11-05 22:15 | XMS_ITS | Clinical Summary ---
Author Organization [facility] Address [address] [place] [address] Phone Care Team Providers Care Rn Neonatal Icu Name Role Phone Unavailable Primary Care Provider [...] diagnosed with pelvic congestive syndrome [place] [facility] [place]. Oneal not yet been evaluated by MATERIAL LOADER. First episode 07/2019: - 08/14/2019: In ED CT abd/pelvis with IV contrast normal. ??Chemistries icnluding lipase, cbc normal. ??HCG neg. - 08/17/2019 Diagnosed in the office with PID and treated. G/C negative. Transvaginal ultrasound was normal. D iagnosed with constipation, treated with miralax. - 08/20/2019 Sent back to ED by MATERIAL LOADER, second transvaginal U/S was done. - 08/29/2019: [...] metronidazole. She did have an ultrasound at [facility] on 04/29 and has not heard results - 05/04/2020: Office visit here in extreme pain, sent Back to ED where she left without completing her visit. 07/23/2020: Labs and KUB normal. 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 U/S normal except prominent pelvic vasculature. Suggest MATERIAL LOADER referral. 11/26/2020 (age 20yr): : admitted to [facility] 11/18/2020 - 11/12/2020 for 5 days of severe abdominal pain. Initiated treatment for presumed PID, no other diagnosis made, treated wit abx. GC/chlam neg. Missed MATERIAL LOADER appointment. Assessment & Plan (12/03/2020 9:13 AM EDT): 12/03/2020 (age 20yr): vag probe from yesterday positive for yeast. With pt on antibiotics for PID and having symptoms of vaginitis, I recommend treatment. I will call in [facility] for her. I left a message for [...] diagnosed with pelvic congestive syndrome at [facility] [place]. Oneal not yet been evaluated by MATERIAL LOADER. Feeling better today after recent admission to [facility] where she was treated for PID. - Recommend reschedule with MATERIAL LOADER, be persistent about getting appt and confirming appt time. - Recommend adult primary care as Petr is starting to have adult medical issues and may be needing more adult manager care going forward. Assessment & Plan (05/12/2020 [...] nd well Other Family history of Sudden /IN under 55, Family history of Asthma, No [...] 04/30/2017, 09/2003, 09/28/2000 Procedures * Due to [place] state law, this organization might not be sharing sensitive test results. Procedure Name Priority Date/Time Associated Diagnosis Comments CHLAMYDIA AND GONORRHEA, AMPLIFIED Routine 05/05/2020 4:29 PM EST Screening examination for bacterial and spirochetal disease from Last 3 Months or Most Recently Relevant to Health Maintenance Results * Due to [place] state law, this organization might not be sharing sensitive test results. * Chlamydia and Gonorrhoea, Amplified (05/05/2020 4:29 PM EST) Chlamydia Trachomatis, DNA Probe NOT DETECTED (NEG) [facility] Comment:Reference range: NOT DETECTED URINE GC AMP PROBE NOT DETECTED (NEG) [facility] Comment: Reference range: NOT DETECTED (NOTE) The analytical performance characteristics of this assay, when used to test SurePath(TM) specimens have been determined by [facility]. The modifications have not been cleared or approved by the FDA. This assay has been validated pursuant to the CLIA regulations and is used for clinical purposes. = For additional information, please refer to https://education.Gleam/faq/NAA930 (This link is being provided for information/ educational purposes only.) = Test Performed by: [facility], [address] [place] [address]. [id number]. Data Integration Developer: Gil Newberry MD. Testing performed or reported by [facility], a Service of [facility], [facility] [place] [address] Baljit Faith MD, College President Urine 05/05/2020 4:29 PM EST 05/05/2020 7:26 PM EST Cathie Benavidez MD LAB MICROBIOLOGY - GENERAL OR DERABLES Final Result [facility] from Last 3 Months or Most Recently Relevant to Health Maintenance Insurance [facility] NON PCC
--- OUTSIDE RECORDS SUMMARY | 2024-11-05 22:15 | XMS_ITS | Encounter Summary ---
Author Organization [facility] Address [address] [place], [place] [address] Phone Care Team Providers Care Boilermaker Helper Name Role Phone Cathie Benavidez MD Primary Care Provider [phone] Encounter Details Date Type Department Care Team (Late st Contact Info) Description 11/07/2016 Documentation [facility] Family Medicine [address] [place] [address] Family Medicine, Physician [address], [place] [phone] Social History Tobacco Use Types Packs/Day Years [...] on filedocumented in this encounter Care Teams Boilermaker Helper Relationship Specialty Start Date End Date Cathie Benavidez MD [address] [place] [address] PCP - General Pediatrics 08/14/19 10/11/22 documented as of this encounter
--- OUTSIDE RECORDS SUMMARY | 2024-11-05 22:15 | XMS_ITS | Encounter Summary ---
Author Organization [facility] Address [address] [place], [place] [address] Phone Care Team Providers Care High Frequency Mill Operator Name Role Phone Cathie Benavidez MD Primary Care Provider [phone] Encounter Details Date Type Department Care Team (Late st Contact Info) Description 09/08/2016 Documentation [facility] [place] Family Medicine [address] [place] [address] Family Medicine, Physician [address] [phone] Social History Tobacco Use Types Packs/Day Years [...] on filedocumented in this encounter Care Teams High Frequency Mill Operator Relationship Specialty Start Date End Date Cathie Benavidez MD [address] [place] [address] PCP - General Pediatrics 08/14/19 10/11/22 documented as of this encounter
--- OUTSIDE RECORDS SUMMARY | 2024-11-05 22:15 | XMS_ITS | Encounter Summary ---
Author Organization [facility] Address [address] [place] [address] Phone Care Team Providers Care Licensed Mental Health Professional Name Role Phone Cathie Benavidez MD Primary Care Provider [phone] Encounter Details Date Type Department Care Team (Late st Contact Info) Description 02/09/2017 Conversion Encounter [facility] [address] [place] [address] Social History Tobacco Use Types Packs/Day Years [...] on filedocumented in this encounter Care Teams Licensed Mental Health Professional Relationship Specialty Start Date End Date Cathie Benavidez MD [address] [place] [address] PCP - General Pediatrics 08/14/19 10/11/22 documented as of this encounter
--- OUTSIDE RECORDS SUMMARY | 2024-11-05 22:15 | XMS_ITS ---
Author Organization [facility] Address [address] [place] [address] Care Team Providers Care Pit Worker Power Shovel Name Role Phone Po Neel BHARDWAJ Primary Care Provider Paul Cortes Jr [phone] REASON FOR VISIT labs Encounters Encounter Location Date Provider Diagnosis [facility] [address] [place] [address] 03/14/2024 Paul Lu Jr Plan Of Treatment Next Appt Details Provider Name:Paul savage Jr, 09/10/2025 10:20:00 AM, [address], [address], [place], [address], Progress Notes * BOO BALLADOB:[birth year] (23 yo F)Acc No.[id number]:03/14/2024 Patient:?IFEOMA BALL :2000???Age:23 Y???Sex:Female Address:[address] [place] [address] , [address], [place], [address] * true * Date:? Generated for Priyai mayra/Amber/eTransmitting on:?11/05/2024 10:15 PM EDT
--- OUTSIDE RECORDS SUMMARY | 2024-11-05 22:16 | XMS_ITS | Encounter Summary ---
Author Organization [facility] Address [address] [place], [place] [phone] Phone Care Team Providers Care Ore Charger Name Role Phone Cathie Benavidez MD Primary Care Provider [phone] Encounter Details Date Type Department Care Team (Late st Contact Info) Description 10/03/2016 Documentation [facility] Family Medicine [address] [place] [address] Family Medicine, Physician [address], [place] [phone] Social History Tobacco Use Types Packs/Day Years [...] on filedocumented in this encounter Care Teams Ore Charger Relationship Specialty Start Date End Date Cathie Benavidez MD [address] [place] [address] PCP - General Pediatrics 08/14/19 10/11/22 documented as of this encounter
--- OUTSIDE RECORDS SUMMARY | 2024-11-05 22:16 | XMS_ITS | Encounter Summary ---
Author Organization [facility] Address [address] [place], [place] [address] Phone Care Team Providers Care City Bailiff Name Role Phone Cathie Benavidez MD Primary Care Provider [phone] Encounter Details Date Type Department Care Team (Late st Contact Info) Description 08/11/2016 Documentation [facility] Family Medicine [address] [place] [address] Family Medicine, Physician [address], [place] [phone] Social History Tobacco Use Types Packs/Day Years [...] on filedocumented in this encounter Care Teams City Bailiff Relationship Specialty Start Date End Date Cathie Benavidez MD [address] [place] [address] PCP - General Pediatrics 08/14/19 10/11/22 documented as of this encounter
--- OUTSIDE RECORDS SUMMARY | 2024-11-05 22:16 | XMS_ITS | Encounter Summary ---
Author Organization [facility] Address [address] [place], [place] [phone] Phone Care Team Providers Care Adult Caregiver Name Role Phone Cathie Benavidez MD Primary Care Provider [phone] Encounter Details Date Type Department Care Team (Late st Contact Info) Description 09/08/2016 Documentation [facility] [address] [place] [address] Family Medicine, Physician [address] [phone] Social History Tobacco Use Types Packs/Day Years [...] on filedocumented in this encounter Care Teams Adult Caregiver Relationship Specialty Start Date End Date Cathie Benavidez MD [address] [place] [address] PCP - General Pediatrics 08/14/19 10/11/22 documented as of this encounter
--- OUTSIDE RECORDS SUMMARY | 2024-11-05 22:16 | XMS_ITS | Encounter Summary ---
Author Organization [facility] Address [address] [place], [place] [address] Phone Care Team Providers Care Banbury Mill Operator Name Role Phone Cathie Benavidez MD Primary Care Provider [phone] Encounter Details Date Type Department Care Team (Late st Contact Info) Description 07/22/2016 Documentation [facility] Family Medicine [address] [place] [address] Family Medicine, Physician [address], [place] [phone] Social History Tobacco Use Types Packs/Day Years [...] on filedocumented in this encounter Care Teams Banbury Mill Operator Relationship Specialty Start Date End Date Cathie Benavidez MD [address] [place] [address] PCP - General Pediatrics 08/14/19 10/11/22 documented as of this encounter
--- OUTSIDE RECORDS SUMMARY | 2024-11-05 22:16 | XMS_ITS ---
Author Organization [facility] Address [address] [place] [address] Care Team Providers Care Bar Machine Operator Multiple Spindle Name Role Phone Po Neel BHARDWAJ Primary Care Provider Paul Cortes Jr Unavailable [phone] Allergies No Known Allergies Results Component Value Reference Range Notes GI PANEL Reviewed date:03/14/2024 11:09:52 AM Interpretation: Performing Lab:[facility], [address] [place] [phone] Notes/Report: Campylobacter Not Detected Not Detect. Plesiomonas [...] is performed by Multiplexed PCR, utilizing the [employer] Array. REASON FOR VISIT Patient presents today for pain in abdomen Medications Medication SIG (Take, Route, Frequency, Duration) [...] Progesterone 200 MG TAKE 1 CAPSULE BY [facility] EVERY DAY AT BEDTIME FOR 5 DAYS Oral for 5 Active metroNIDAZOLE 500 MG TAKE 1 TABLET BY [facility] EVERY 12 HOURS FOR 7 DAYS Oral for 7 Active Ventolin HFA 108 (90 Base) MCG/ACT Inhalation for 25 Active Ondansetron 4 MG Oral for 4 Ac tive Social History Tobacco Use: Social History Observation Description Date Details (start date - stop date) Never Smoker NA - NA Tobacco Use/Smoking Question Answer Notes Patient is a nonsmoker Alcohol Screen Question Answer Notes Did you have a drink containing alcohol in the p ast year? No Points 0 Interpretation Negative Vital Signs Temperature 97.5 degrees Fahrenheit 03/11/20 24 Blood pressure systolic 000 mm Hg 03/11/20 24 Blood pressure diastolic 00 mm Hg 024 Height 63 in 03/11/2024 Weight 123 lb 6 oz lbs 03/11/2024 BMI 21.85 kg/m2 03/11/2024 Encounters Encounter Location Date Provider Diagnosis [facility] [address] [place] [address] 03/11/2024 Paul Lu Jr Gastroesophageal reflux disease, unspecified whether esophagitis present K21.9 and Change in bowel habits R19.4 Assessments Encounter Date Diagnosis (ICD Code) Assessment Notes Treatment Notes Treatment Clinical Notes Section Notes 03/11/2024 Gastroesophageal reflux disease, unspecified whether esophagitis [...] She will have a TSH level. 03/11/2024 Change in bowel habits (ICD-10 - R19.4) We discussed her symptoms today. Reflux symptoms are under good control on omeprazole and she will continue this. Her diarrheal symptoms will be evaluated further with stool specimens. For her stomach symptoms, we recommended she continue to use dicyclomine and simethicone. Followup will be in 6 months. She will have a TSH level. Plan Of Treatment Treatment Notes Assessment Notes Gastroesophageal reflux dise ase, unspecified whether esophagitis present Daily bowel care program material was printed Pending Test Test Name Order Date LIVER PROFILE 03/11/2024 LIPASE 03/11/2024 CBC w/o DIFF 03/11/2024 STOOL WBC 03/11/2024 OVA & PARASITES (O&P) 03/11/2024 TSH REFLEX FREE T4 03/11/2024 Next Appt Details Follow Up: 6 Months, Reason: Provider Name:Paul savage Jr, 09/10/2025 10:20:00 AM, [address], [address], [place], [address], Progress Notes * JOSIAH BALLB:[birth year] (23 yo F)Acc No.[id number]:03/11/2024 Progress Notes Patient:?IFEOMA BALL Provider:?Paul Lu MD :2000???Age:23 Y???Sex:Female D ate:03/11/2024 Address:[address] [place] [address] [address], [id number] Pcp:Neel Duque MD Subjective: * Chief Complaints: * ???1. Patient presents today for pain in abdomen. * HPI: ???New symptom(s):? The patient is a pleasant 23-year-old woman seen today in followup. She was last seen for upper endoscopy in october. This was normal and show no evidence of H. pylori or Angela's esophagus. We reviewed this today. ?She complains of diarrheal symptoms with watery stools. There is no rectal bleeding. She describes a bubbling feeling in the stomach. She continues on omeprazole 20 mg daily. She has no complaints of reflux. She denies any recent travel, unusual food ingestions, or ill contacts. * Medical History:?Anxiety/dep ression, Asthma, Migraine headaches, [...] minutes before morning meal Orally Once a day, Taking Dicyclomine HCl 10 MG Capsule 1 tablet Orally 2-4 times a day, Taking Gas Relief Extra Strength 125 MG Capsule TAKE 1 CAPSULE BY MOUTH 2-4 TIMES A DAY NEEDED Oral , Medication List reviewed and reconciled with the patient * Allergies:?N.K.D.A. Objective: * Vitals:?Wt: 123 lb 6 oz, Ht: 63 in, BMI:21.85 Index, BP: 000/00 mm Hg, Temp: 97.5. * Examination: ???General Examination: ???On examination today, she appears well. Skin is anicteric. Lungs are clear. Heart shows regular rate and rhythm. Abdomen is soft without focal masses or tenderness. Extremities are without edema. Assessment: * Assessment: 1.?Gastroesophageal reflux d isease, unspecified whether esophagitis present - K21.9 (Primary)?2.?Change in bowel habits - R19.4? We discussed her symptoms to day. Reflux symptoms are under good control on omeprazole and she will continue this. Her diarrheal symptoms will be evaluated further with stool specimens. For her stomach symptoms, we recommended she continue to use dicyclomine and simethicone. Followup will be in 6 months. She will have a TSH level. Plan: * Treatment: ? Value Reference Range ?Campylobacter Not Detected Not Detec t. - * ?Plesiomonas shigelloides Not Detected Not Detect. - * ?Salmonella Not Detected Not Detect. - * ?Vibrio Not Detected Not Detect. - * ?Vibrio cholerae Not Detected Not Det ect. - * ?Yersinia enterocolitica Not Detected Not Detect. - * ?E. coli EAEC Not Detected Not Detect . - * ?E. coli EPEC Not Detected Not Detect . - * ?E. coli ETEC Not Detected Not Detect . - * ?E. coli STEC Not Detected Not Detect . - * ?E coli O157 Not applicable Not Detec t. - * ?Shigella sp./EIEC Not Detected Not D etect. - * ?Cryptosporidium Not Detected Not Det ect. - * ?Cyclospora cayetanesis Not Detected Not Detect. - * ?Entamoeba histolytica Not Detected N ot Detect. - * ?Giardia lamblia Not Detected Not Det ect. - * ?Adenovirus F 40/41 Not Detected Not Detect. - * ?Astrovirus Not Detected Not Detect. - * ?Norovirus GI/GII Not Detected Not De tect. - * ?Rotavirus A Not Detected Not Detect. - * ?Sapovirus Not Detected Not Detect. - Notes: Daily bowel care program material was printed??2.?Change in bowel habits?LAB: LIVER PROFILE ?LAB: LIPASE ?LAB: CBC w/o DIFF ?LAB: STOOL WBC ?LAB: OVA & PARASITES (O&P) ?LAB: TSH REFLEX FREE T4 ?LAB: GI PANEL* ? Value Reference Range ?Campylobacter Not Detected Not Detec t. - * ?Plesiomonas shigelloides Not Detected Not Detect. - * ?Salmonella Not Detected Not Detect. - * ?Vibrio Not Detected Not Detect. - * ?Vibrio cholerae Not Detected Not Det ect. - * ?Yersinia enterocolitica Not Detected Not Detect. - * ?E. coli EAEC Not Detected Not Detect . - * ?E. coli EPEC Not Detected Not Detect . - * ?E. coli ETEC Not Detected Not Detect . - * ?E. coli STEC Not Detected Not Detect . - * ?E coli O157 Not applicable Not Detec t. - * ?Shigella sp./EIEC Not Detected Not D etect. - * ?Cryptosporidium Not Detected Not Det ect. - * ?Cyclospora cayetanesis Not Detected Not Detect. - * ?Entamoeba histolytica Not Detected N ot Detect. - * ?Giardia lamblia Not Detected Not Det ect. - * ?Adenovirus F 40/41 Not Detected Not Detect. - * ?Astrovirus Not Detected Not Detect. - * ?Norovirus GI/GII Not Detected Not De tect. - * ?Rotavirus A Not Detected Not Detect. - * ?Sapovirus Not Detected Not Detect. - * Procedure Codes:?G9903 Pt sc rn tbco id as non user, G9745 DOC RSN FOR NOT SCREEN/REC F/U HBP * Follow Up:?6 Months * * Sign off status: Completed true * Provider:?Paul Lu MD Date:?0 03/11/2024 Generated for Printi ng/Nevag/eTransmitting on:?11/05/2024 10:15 PM EDT History and Physical Notes * HPI (History of Present Illness) Category Sub-Category Detail Notes Category Not es New symptom(s) The patient is a pleasant 23-year-old woman seen today in followup. She was last seen for upper endoscopy in october. This was normal and show no evidence of H. pylori or Angela's esophagus. We reviewed this today. She complains of diarrheal symptoms with watery stools. There is no rectal bleeding. She describes a bubbling feeling in the stomach. She continues on omeprazole 20 mg daily. She has no complaints of reflux. She denies any recent travel, unusual food ingestions, or ill contacts. Examination Category Sub-Category Detail Notes Category Not es General Examination On exami nation today, she appears well. Skin is anicteric. Lungs are clear. Heart shows regular rate and rhythm. Abdomen is soft without focal masses or tenderness. Extremities are without edema.
--- OUTSIDE RECORDS SUMMARY | 2024-11-05 22:16 | XMS_ITS | Encounter Summary ---
Author Organization [facility] Address [address] [place], [place] [phone] Phone Care Team Providers Care Field Representatives Director Name Role Phone Cathie Benavidez MD Primary Care Provider [phone] Encounter Details Date Type Department Care Team (Late st Contact Info) Description 06/06/2016 Documentation [facility] [place] [address] [place] [address] Family Medicine, Physician [address] [place], [place] [phone] Social History Tobacco Use Types Packs/Day Years [...] on filedocumented in this encounter Care Teams Field Representatives Director Relationship Specialty Start Date End Date Cathie Benavidez MD [address] [place] [address] PCP - General Pediatrics 08/14/19 10/11/22 documented as of this encounter
--- NOTE | 2024-11-05 22:24 | PC.NURSE ---
Addendum entered by Griselda Lutz RN 11/05/24 23:52: pt states she feels much relief after having zofran. pt now eating ice chips and having small sips of apple juice. pt tolerating well at this time. Original Note: EDT noted to be uncontrollably shaking and then suddenly stop and not respond for a moment (syncopal episode?). EDT made this RN aware, upon entry to the room pt lying with eyes closed in semi fowlers position. symmetrical and unlabored respirations noted. pts hr 72, 100 RA, 18 RR and 120/59 bp, oral temp of 98.4
[2024-11-05] MEDS: ondansetron HCL 4 MG/2 ML VIAL IVPUSH (23:07)
[2024-11-05 23:26] LABS: Influenza A PCR NEGATIVE (Negative); Influenza B PCR NEGATIVE (Negative); Resp Syncy Virus RNA Qual PCR NEGATIVE (Negative); SARS COV2 PCR INHOUSE NEGATIVE (Negative)
[2024-11-06] VITALS: BP 117/64; PULSE 84; RESP 20; TEMP 36.8; O2SAT 100
--- NOTE | 2024-11-06 00:23 | ED.ABDPAIN ---
HPI - Abdominal Pain General Chief Complaint: Abdominal Pain Stated Complaint: pt was here this morning same symptoms fainted 2x Time Seen by Provider: 11/06/24 00:18 Source: patient and family Mode of arrival: ambulatory Limitations: no limitations History of Present Illness ED Provider: DR. Neal HPI narrative: 24-year-old female PMHx PID, ectopic , IBS presented with 1 day history of abdominal pain associated with nausea and vomiting, no fever, no chills, not passing flatus, feel abdominal bloated and distended. Smokes marijuana every day did not smoke for the last 3 days because of the vomiting. History of ectopic required right fallopian tube resection. No dysuria, no frequency urination, no vaginal discharge, no vaginal bleeding. Related Data Home Medications ?Medication ?Instructions ?Recorded ?Confirmed acetaminophen 500 mg tablet 500 mg PO Q6H PRN pain 04/04/23 04/17/24 albuterol sulfate 90 mcg/actuation 2 puff inhalation Q6H PRN wheezing 04/04/23 04/17/24 aerosol inhaler (Ventolin HFA) dicyclomine 10 mg capsule 10 mg PO Q6H PRN 11/27/23 04/17/24 Previous Rx's ?Medication ?Instructions ?Recorded famotidine 10 mg tablet (Acid 10 mg PO BEDTIME #30 tabs 02/28/24 Biological Lab Technician (famotidine)) simethicone 125 mg capsule (Gas 125 mg PO BID-QID PRN abdominal 02/28/24 Relief (simethicone)) distention #20 caps terconazole 0.8 % vaginal cream 1 appful vaginal BEDTIME 3 days 03/04/24 #20 grams menthol 0.44 %-zinc oxide 20.6 % 1 appl topical QID PRN hemorrhoids 03/13/24 topical ointment (Calmoseptine) #113 grams naproxen 500 mg tablet (Naprosyn) 500 mg PO BID #20 tabs 03/21/24 ondansetron 4 mg disintegrating 4 mg PO Q8H 4 days #12 tabs 04/17/24 tablet acetaminophen 500 mg tablet 500 mg PO Q6H PRN fever or pain 08/06/24 (Tylenol Extra Strength) #14 tabs ibuprofen 400 mg tablet 400 mg PO Q6H PRN fever or pain 02/11/25 #14 tabs ondansetron 4 mg disintegrating 4 mg PO Q8H PRN nausea and 08/06/24 tablet vomiting #10 tabs oseltamivir 75 mg capsule (Tamiflu) 75 mg PO Q12H 5 days #10 caps 08/06/24 Allergies Allergy/AdvReac Type Severity Reaction Status Date / Time Seasonal Allergies Allergy Intermediate Itchy Eyes Verified 11/05/24 22:02 Review of Systems Review of Systems All other systems are reviewed and are negative Constitutional: Reports as per HPI and Reports no additional constitutional complaints Eyes: Reports as per HPI and Reports no additional eye complaints Reports system reviewed and no additional complaints, except as documented Cardiovascular: Reports as per HPI and Reports no additional cardiovascular complaints Respiratory: Reports as per HPI and Reports no additional respiratory complaints Gastrointestinal: Reports as per HPI and Reports no additional gastrointestinal complaints Genitourinary: Reports no additional female genitourinary complaints Musculoskeletal: Reports no additional musculoskeletal complaints Skin/Breast: Reports system reviewed and no additional complaints, except as docu Psychiatric: Reports no additional psychiatric complaints Endocrine: Reports no additional endocrine complaints Hematologic/Lymphatic: Reports no additional hematologic/lymphatic complaints Allergic/Immunologic: Reports no additional allergic/immunologic complaints Reports system reviewed and no additional complaints, except as documented and Reports Abnormal speech present [facility] Past Medical History Medical History External hemorrhoids with complication Anxiety and depression Cough Cough due to LYNN inhibitor Seasonal allergies Low back pain Migraine with aura Asthma Surgical History History of salpingectomy H/O colonoscopy Family History Family History Paternal Grandmother Breast CA Mother Crohn disease Father Migraine Brother Bipolar 1 disorder Maternal Grandmother Heart disease Maternal Aunt Colon cancer Other Mental health disorder Social History Social History Housing: Apartment Alcohol intake: never Patient Tobacco Use Status: Never used Tobacco Smoked in Last 30 Days: Yes e-Cigarette/Vaping Use: Never Used Second Hand Smoke Exposure: No Use of substances other than those prescribed or required for medical reasons: No Substance Use Type: Marijuana Advance Directives: No Advance Directives Information Provided: No Do you have a plan to hurt others: No Plan Patient : No service: No Current occupational status: employed Current occupation: [employer] Current occupational exposures/hazards: No Sexual orientation: Straight/Heterosexual Gender identity: Female Cognitive needs: No Hearing needs: No Vision needs: No Physical Exam ED Vital Signs: Vital Signs - 24 hr 11/05/24 22:00 11/05/24 22:08 11/06/24 00:00 Temperature 97.3 F 98.2 F Pulse Rate 94 98 84 Respiratory Rate 27 H 20 Blood Pressure 138/49 L 117/64 Pulse Oximetry 100 100 100 Oxygen Delivery Method Room Air Room Air Room Air 11/06/24 01:09 11/06/24 01:36 11/06/24 03:15 Temperature 98.4 F 98.4 F Pulse Rate 91 76 80 Respiratory Rate 18 15 14 Blood Pressure 104/54 L 115/53 L 113/62 Pulse Oximetry 98 100 Oxygen Delivery Method Room Air Room Air BMI result Body Mass Index 21.6 Vital signs have been reviewed and appear to be correct. Blood pressure elevated. Heart rate normal. Respiratory rate normal. Temperature normal. Oxygen saturation normal. Appearance: Anxious, Alert. Oriented X3. No acute distress. Head: Normal external exam. Normocephalic. Atraumatic. No Mitchell signs noted. No raccoon eyes noted Eyes: PERRLA. EOMI. Conjunctiva and sclera normal. Eyelids normal. ENT: TM's Normal. Pharynx normal. Uvula midline. Moist mucous membranes. No trismus noted. No drooling noted. No muffled voice noted. Neck: Normal inspection. Neck supple. FROM. No adenopathy. Thyroid Normal. No meningeal signs. No neck mass noted. CVS: Normal heart rate and rhythm. Heart sound normal. No murmurs noted. Pulses normal throughout. Respiratory: No respiratory distress. Painless inspiration. Breath sounds normal. No wheezes/rales/rhonchi noted. Chest nontender. No accessory muscle usage noted or decreased air movement noted. Abdomen: Soft and nontender. Bowel sounds normal in all 4 quadrants. No distention noted. No organomegaly noted. No visible injury noted. Back: No CVA tenderness. Full range of motion noted. Skin: Skin warm and dry. Normal skin color. Normal skin turgor. No rashes/lesions/lacerations noted. Extremities: No lower extremity edema. Extremities exhibit normal range of motion. Extremities nontender. Neuro: Oriented X 3. Cranial nerve exam: II-XII are grossly intact No motor deficit. No sensory deficit. Reflexes normal. Course Reevaluation(s) Reevaluation #1: Patient received Tylenol IV, Valium IV, and Reglan. Patient was able to sleep, wake up feels better, able to tolerate p.o. intake, no abdominal pain. Time: 04:28 Medical Decision Making Differential Diagnosis Differential Diagnoses: The differential diagnosis associated with the presentation includes (Cyclic vomiting syndrome, marijuana induced vomiting, food poisoning, gastroenteritis, electrolyte derangement, severe anemia.) Admission/Observation Consideration of admission/observation: Escalation of care including admission/observation considered Lab Data MDM Lab Attestation statement: I reviewed the patient's lab results. Labs: Lab Results 11/05/24 Range/Units 22:44 Influenza Type A (PCR) NEGATIVE (Negative) Influenza Type B (PCR) NEGATIVE (Negative) RSV RNA Qual (PCR) NEGATIVE (Negative) SARS-CoV-2 RNA (RT-PCR) NEGATIVE (Negative) Medications Administered Discontinued Medications Generic Name Dose Route Start Last Admin Trade Name Freq PRN Reason Stop Dose Admin Diazepam 5 mg 11/06/24 00:21 11/06/24 00:30 Diazepam 10 Mg/2 Ml Cartridge IVPUSH 11/06/24 00:22 5 mg STAT STA Administration Sodium Chloride 1,000 mls @ 999 mls/hr 11/06/24 00:21 11/06/24 03:16 Ns IV 11/06/24 01:21 Infused .Q1H1M ONE Infusion Ketorolac Tromethamine 15 mg 11/06/24 00:21 11/06/24 00:30 Ketorolac Tromethamine 15 Mg/Ml Vial IVPUSH 11/06/24 00:22 15 mg ONCE ONE Administration Metoclopramide HCl 10 mg 11/06/24 00:21 11/06/24 00:30 Metoclopramide Hcl 10 Mg/2 Ml Vial IVPUSH 11/06/24 00:22 10 mg ONCE ONE Administration Ondansetron HCl 4 mg 11/05/24 22:54 11/05/24 23:07 Ondansetron Hcl 4 Mg/2 Ml Vial IVPUSH 11/05/24 22:55 4 mg ONCE ONE Administration Discharge Plan Discharge Clinical Impression: Cannabinoid hyperemesis syndrome Patient Disposition: Home, Self-Care Instructions: Cannabis Use Disorder (ED) Prescriptions: No Action naproxen [Naprosyn] 500 mg tablet 500 mg PO BID Qty: 20 0RF oseltamivir [Tamiflu] 75 mg capsule 75 mg PO Q12H 5 Days Qty: 10 0RF ibuprofen 400 mg tablet 400 mg PO Q6H PRN (Reason: fever or pain) Qty: 14 0RF acetaminophen [Tylenol Extra Strength] 500 mg tablet 500 mg PO Q6H PRN (Reason: fever or pain) Qty: 14 0RF ondansetron 4 mg tablet,disintegrating 4 mg PO Q8H PRN (Reason: nausea and vomiting) Qty: 10 0RF albuterol sulfate [Ventolin HFA] 90 mcg/actuation HFA aerosol inhaler 2 puff inhalation Q6H PRN (Reason: wheezing) acetaminophen 500 mg tablet 500 mg PO Q6H PRN (Reason: pain) simethicone [Gas Relief (simethicone)] 125 mg capsule 125 mg PO BID-QID PRN (Reason: abdominal distention) Qty: 20 1RF famotidine [Acid Biological Lab Technician (famotidine)] 10 mg tablet 10 mg PO BEDTIME Qty: 30 0RF dicyclomine 10 mg capsule 10 mg PO Q6H PRN terconazole 0.8 % cream 1 appful vaginal BEDTIME 3 Days Qty: 20 0RF menthol-zinc oxide [Calmoseptine] 0.44-20.6 % ointment 1 appl topical QID PRN (Reason: hemorrhoids) Qty: 113 2RF ondansetron 4 mg tablet,disintegrating 4 mg PO Q8H 4 Days Qty: 12 0RF Referrals: Po,Neel Henry MD [Primary Care Provider] - Print Language: Malaysian
[2024-11-06] MEDS: diazePAM 10 MG/2 ML CARTRIDGE 5 MG IVPUSH (00:30)
[2024-11-06] MEDS: Ketorolac Tromethamine 15 MG/ML VIAL IVPUSH (00:30)
[2024-11-06] MEDS: 0.9 % Sodium Chloride 1,000 ML 999 ML IV (00:30)
[2024-11-06] MEDS: Metoclopramide HCl 10 MG/2 ML VIAL IVPUSH (00:30)
[2024-11-06 01:09] VITALS: BP 104/54; PULSE 91; RESP 18
[2024-11-06 01:36] VITALS: BP 115/53; PULSE 76; RESP 15; TEMP 36.9; O2SAT 98
[2024-11-06 03:15] VITALS: BP 113/62; PULSE 80; RESP 14; TEMP 36.9; O2SAT 100
[2024-11-06 06:00] VITALS: BP 106/40; PULSE 76; RESP 16; TEMP 36.8; O2SAT 98
[2024-11-06 06:16] VITALS: BP 106/40; PULSE 76; RESP 16; TEMP 36.8; O2SAT 98
== END 2024-11-06 06:18 | disposition home or self-care (01) ==
PROVIDERS: Emergency Provider Emergency Medicine; PCP Internal Medicine
DX: R11.2 Nausea with vomiting, unspecified (principal); R10.9 Unspecified abdominal pain; Z03.818 Encounter for observation for suspected exposure to other biological agents ruled out; F12.90 Cannabis use, unspecified, uncomplicated; J45.909 Unspecified asthma, uncomplicated
CPT/HCPCS: 0241U; 93005; 96361; 96374; 96375; 99284; 99285; J1885; J2405; J2765; J3360

== ENCOUNTER → 2024-11-05 22:40 | Outpatient (BNV) | payer OTHER, SELFPAY | PROVIDERS: Emergency Provider Emergency Medicine; PCP Internal Medicine; Visit Provider Internal Medicine Cardiovascular Disease | DX: R94.31 Abnormal electrocardiogram [ECG] [EKG] (principal); R55 Syncope and collapse | CPT/HCPCS: 93010 ==

== ENCOUNTER 2024-11-08 11:02 | Outpatient (AMB) | payer OTHER, SELFPAY ==
--- NOTE | 2024-11-08 11:08 | MHC.PC.OV ---
Vital Signs 11/08/24 11:09 Height 5 ft 3 in Weight 120 lb 8 oz BMI 21.3 BP 102/60 Blood Pressure Location Lt brachial Position Sitting Pulse 73 Pulse Source Pulse Oximeter Pulse Oximetry (%) 99 Oxygen Delivery Method Room Air Intake Visit Reasons: ED FOLLOW UP Senior Systems Architect Required: No Accompanied by: Self / Same As Patient Allergies Seasonal Allergies Allergy (Intermediate, Verified 11/08/24 11:10) Itchy Eyes Tobacco use date assessed: 11/08/24 Dental Screening Dental Screen Date: 11/08/24 Did you have a dental visit in the last 12 months?: Yes Did you have a dental problem in the last 6 months where you did not have access to dental care?: No Was dental information given to patient?: Patient has dentist HPI HPI Comments History of Present Illness Details 33 y/o female patient who presents to the clinic today for EDF. Pt was [place] [facility] [place] for and evaluation and treatment of Abdominal pain and Hyperemesis due to Cannabinoid use. She continues to have Nausea, abdominal pain, constipation and bloating. She has been using prescribed Zofran, and Gas X with minimal relief. Denies fevers, but reports Hot Flushes . [facility] Medical History External hemorrhoids with complication Anxiety and depression Cough Cough due to LYNN inhibitor Seasonal allergies Low back pain Migraine with aura Asthma Surgical History History of salpingectomy H/O colonoscopy Family History Paternal Grandmother Breast CA Mother Crohn disease Father Migraine Brother Bipolar 1 disorder Maternal Grandmother Heart disease Maternal Aunt Colon cancer Other Mental health disorder Social History Housing: Apartment Alcohol intake: never Patient Tobacco Use Status: Never used Tobacco e-Cigarette/Vaping Use: Never Used Second Hand Smoke Exposure: No Substance Use Type: Marijuana service: No Current occupational status: employed Current occupation: [employer] Current occupational exposures/hazards: No Sexual orientation: Straight/Heterosexual Gender identity: Female Cognitive needs: No Hearing needs: No Vision needs: No Female Reproductive History Menstrual Age of Menarche: 12 Questionnaire PHQ-9 Over the last 2 weeks, how often have you been bothered by any of the following problems? 1. Little interest or pleasure in doing things: not at all 2. Feeling down, depressed, or hopeless: not at all 3. Trouble falling or staying asleep, or sleeping too much: more than half the days 4. Feeling tired or having little energy: more than half the days 5. Poor appetite or overeating: more than half the days 6. Feeling bad about yourself - or that you are a failure or have let yourself or your family down: not at all 7. Trouble concentrating on things, such as reading the newspaper or watching television: not at all 8. Moving or speaking so slowly that other people could have noticed. Or the opposite - being so fidgety or restless that you have been moving around a lot more than usual: not at all 9. Thoughts that you would be better off or of hurting yourself in some way: not at all Total score: 6 Source: Developed by Drs. Reji Yee, Jennifer Majano, Keanu Arce and colleagues, with an educational girma from [employer] Thrive Questionnaire Date Thrive assessed: 11/08/24 I am a: Patient What is your living situation today?: I have a steady place to live Within the past 12 months, did the food you bought not last and you didn't have the money to get more?: Never true Within the past 12 months, did you worry whether your food would run out before you got money to buy more?: Never true Do you have trouble paying for medicines?: No Do you have trouble getting transportation to medical appointments?: No Do you have trouble paying your heating and electricity bill?: No Do you have trouble taking care of your child, family member or friend?: No Do you have trouble with day-to-day activities such as bathing, preparing meals, shopping, managing finances, etc.?: No Are you currently unemployed and looking for a job?: No Are you interested in more education?: No Please select the resources that you would like help with: None Currently or been in a relationship where the following occur: No concerns reported THRIVE Score: 0 AUDIT C Alcohol Use Questionnaire (AUDIT-C) 1. How often do you have a drink containing alcohol?: Never 3. How often do you have six or more drinks on one occasion?: Never Total Score: 0 ELVA-7 AMB Questionnaire ELVA-7 Date ELVA - 7 assessed: 11/08/24 Feeling nervous, anxious, or on edge: 2 = More than half the days Not being able to stop or control worryin = Several days Worrying too much about different things: 0 = Not at all Trouble relaxin = Several days Being so restless that it is hard to sit still: 0 = Not at all Becoming easily annoyed or irritable: 1 = Several days Feeling afraid as if something awful might happen: 0 = Not at all Total ELVA-7 score (0-4 normal; 5-9 mild; 10-14 moderate; 15-21 severe): 5 Source: Developed by Drs. Reji Yee, Jennifer Majano, Keanu Arce and colleagues, with an educational girma from [employer]. Review of Systems Const All systems reviewed & are unremarkable except as noted in HPI and below Physical exam (Primary Care) Vital Signs: Last Vital Signs Pulse 73 11/08/24 11:09 BP 102/60 11/08/24 11:09 Pulse Ox 99 11/08/24 11:09 Oxygen Delivery Method Room Air 11/08/24 11:09 BMI result Body Mass Index 21.3 Tobacco/Smoking Status: Tobacco use Status Tobacco use date assessed 11/08/24 11/08/24 11:14 Patient Tobacco Use Status Never used Tobacco 11/08/24 11:14 e-Cigarette/Vaping Use Never Used 11/08/24 11:14 PHQ-9: PHQ-9 Score PHQ-9: Total score 6 11/08/24 11:35 Thrive Assessment: Date of Thrive Assessment Date Thrive assessed 11/08/24 11/08/24 11:14 Currently or been in a relationship where the following occur: No concerns reported Const General: no acute distress Nutritional Appearance: well nourished Orientation/consciousness: patient oriented x3 HENMT Head: Yes normocephalic Resp Effort & Inspection: normal respiratory effort Auscultation: clear to auscultation bilaterally Cardio Heart sounds: S1 normal heart sound present and S2 normal heart sound present GI Inspection: Yes normal to inspection Palpation (GI): Soft to palpation, not firm, Tenderness to palpation present (GI) in the epigastrum, periumbilically and suprapubicly, no guarding and No hepatosplenomegaly present Auscultation: normal bowel sounds Neuro General: patient oriented x3 Coding Level of Care Code Est Pt Level 4 (99436) Diagnoses Cannabinoid hyperemesis syndrome R11.2; F12.90 Slow transit constipation K59.01 Constipation type: slow transit constipation Time Spent (min) 20 Assessment & Plan Assessment & Plan (1) Cannabinoid hyperemesis syndrome: Code(s): R11.2 - Nausea with vomiting, unspecified; F12.90 - Cannabis use, unspecified, uncomplicated Category: Medical Plan: Continue using Zofran as prescribed. Avoid Oily, Spicy foods. Refrain from smoking [place]. (2) Constipation: Code(s): K59.00 - Constipation, unspecified Category: Medical Qualifiers: Constipation type: slow transit constipation Qualified Code(s): K59.01 - Slow transit constipation Plan: Hydrate with plenty of water Increase Fiber intake. Ordered Dulcolax. Medications: New bisacodyl (Dulcolax (bisacodyl)) 5 mg PO BEDTIME 20 tabs 0RF K59.01 - Slow transit constipation Refilled ondansetron 4 mg PO Q8H PRN 20 tabs 0RF nausea and vomiting F12.90 - Cannabis use, unspecified, uncomplicated, R11.2 - Nausea with vomiting, unspecified Discontinued oseltamivir (Tamiflu) Discontinued Reason: Patient Completed Course 75 mg PO Q12H 5 days 10 caps 0RF famotidine (Acid Database Marketing Analyst (famotidine)) Discontinued Reason: Patient Completed Course 10 mg PO BEDTIME 30 tabs 0RF ondansetron Discontinued Reason: Duplicate 4 mg PO Q8H 4 days 12 tabs 0RF
[2024-11-08 11:09] VITALS: BP 102/60; PULSE 73; O2SAT 99; BMI 21.3
--- OUTSIDE RECORDS SUMMARY | 2024-11-08 11:30 | XMS_ITS | Encounter Summary ---
Author Organization [facility] Address [address] [place] [address] Phone Care Team Providers Care Teletype Clerk Name Role Phone Cathie Benavidez MD Primary Care Provider [phone] Encounter Details Date Type Department Care Team (Late st Contact Info) Description 02/09/2017 Documentation [facility] [place] [facility] [address] [place] [address] Family Medicine, Physician [address], [place] [phone] Social History Tobacco Use Types Packs/Day Years [...] on filedocumented in this encounter Care Teams Teletype Clerk Relationship Specialty Start Date End Date Cathie Benavidez MD [address] [place] [id number] PCP - General Pediatrics 08/14/19 10/11/22 documented as of this encounter
--- OUTSIDE RECORDS SUMMARY | 2024-11-08 11:30 | XMS_ITS | Encounter Summary ---
Author Organization [facility] Address [address] [place] [address] Phone Care Team Providers Care Monorail Crane Operator Name Role Phone Cathie Benavidez MD Primary Care Provider [phone] Encounter Details Date Type Department Care Team (Late st Contact Info) Description 02/09/2017 Conversion Encounter [facility] [place] [address] [place] [address] Social History Tobacco Use Types Packs/Day Years [...] on filedocumented in this encounter Care Teams Monorail Crane Operator Relationship Specialty Start Date End Date Cathie Benavidez MD [address] [place] [address] PCP - General Pediatrics 08/14/19 10/11/22 documented as of this encounter
--- OUTSIDE RECORDS SUMMARY | 2024-11-08 11:31 | XMS_ITS | Encounter Summary ---
Author Organization [facility] Address [address] [place], [place] [phone] Phone Care Team Providers Care Vocal Teacher Name Role Phone Cathie Benavidez MD Primary Care Provider [phone] Encounter Details Date Type Department Care Team (Late st Contact Info) Description 11/07/2016 Documentation [facility] [place] [address] [place] [address] Family Medicine, Physician [address] [phone] Social History Tobacco Use Types Packs/Day Years [...] on filedocumented in this encounter Care Teams Vocal Teacher Relationship Specialty Start Date End Date Cathie Benavidez MD [address] [place] [address] PCP - General Pediatrics 08/14/19 10/11/22 documented as of this encounter
--- OUTSIDE RECORDS SUMMARY | 2024-11-08 11:31 | XMS_ITS | Encounter Summary ---
Author Organization [facility] Address [address] [place] [address] Phone Care Team Providers Care Infrastructure Software Engineer Name Role Phone Cathie Benavidez MD Primary Care Provider [phone] Encounter Details Date Type Department Care Team (Late st Contact Info) Description 02/09/2017 Documentation [facility] [place] [address] [place] [address] Family Medicine, Physician [address], [place] [phone] Social History Tobacco Use Types Packs/Day Years [...] on filedocumented in this encounter Care Teams Infrastructure Software Engineer Relationship Specialty Start Date End Date Cathie Benavidez MD [address] [place] [id number] PCP - General Pediatrics 08/14/19 10/11/22 documented as of this encounter
--- OUTSIDE RECORDS SUMMARY | 2024-11-08 11:31 | XMS_ITS ---
Author Organization [facility] Address [address] [place] [address] Care Team Providers Care Highway Administrative Engineer Name Role Phone Po Neel BHARDWAJ Primary Care Provider Paul Cortes Jr [phone] REASON FOR VISIT labs Encounters Encounter Location Date Provider Diagnosis [facility] [address] [place] [address] 03/14/2024 Paul Lu Jr Plan Of Treatment Next Appt Details Provider Name:Paul savage Jr, 09/10/2025 10:20:00 AM, [address], [address], [place], [address], Progress Notes * BOO BALLADOB:[birth year] (23 yo F)Acc No.[id number]:03/14/2024 Patient:?IFEOMA BALL :2000???Age:23 Y???Sex:Female Address:[address] [place] [address] , [address], [place], [address] * true * Date:? Generated for Shalini nunez/Amber/eTransmitting on:?11/08/2024 11:30 AM EDT
--- OUTSIDE RECORDS SUMMARY | 2024-11-08 11:31 | XMS_ITS | Patient Health Record ---
Author Organization [facility] Address [address] [place] [address] Care Team Providers Care Straw Hat Plunger Operator Name Role Phone Neel Duque MD Primary Care Provider Paul Cortes Jr Unavailable [phone] Allergies No Known Allergies Results Component Value Reference Range Notes GI PANEL Reviewed date:03/14/2024 11:09:52 AM Interpretation: Performing Lab:[facility], [address] [place] [phone] Notes/Report: Campylobacter Not Detected Not Detect. Plesiomonas [...] is performed by Multiplexed PCR, utilizing the [employer] Array. Ur Preg Test Reviewed date:11/15/2023 07:02:24 AM Interpretation: Performing Lab:[facility], [address] [place] [phone] Notes/Report: Urine NEGATIVE NEGATIVE This test was developed to detect early . False negative results may occur after the 5th - 7th week of when using this test method. If clinically indicated, consider a serum hCG. Pathology Reviewed date:11/16/2023 10:20:06 AM Interpretation: Performing Lab:[facility], [address] [place] [phone] Notes/Report: --- Name: Kishore Ball Age/Sex: 23/F : 2000 Unit#: [id number] Attend Dr: Paul Lu MD Re11/14/23 Status : [facility] Location: [facility] Disch: --- SPEC : [id number] RECD : 11/14/23 STATUS: GINGER MASON NUM: [id number] TREVIN: 11/14/231158 [facility] DR: Paul Lu MD ENTERED: 11/14/23- 25 [...] Kishore Ball Age/Sex: 23/F : 2000 Unit#: [id number] Attend Dr: Paul Lu MD Re11/14/23 Status : [facility] Location: [facility] Disch: --- SPEC : [id number] REC -1219 STATUS: GINGER MASON NUM: [id number] TREVIN: 11/14/23-1158 [facility] DR: Paul Lu MD ENTERED: 11/14/23-12 25 SP TYPE: Surgical OTHR DR: Neel Duque MD ORDERED: HE Stain/9, Gross Micro L4/3, IHC, Special st. 2/3, H. pylori, AB/PAS/3 Gross Description (Continued) CEDS Special studies orde red and performed: Immunostain for H. pylori on B1; AB/PAS stains on A1, B1 and C1. Copies To: Paul Lu MD [address] [place] [address] [id number] [place] [address] Neel Duque MD [address] [place] [address] [address] [place] [address] --- Signed (signature on file) Ella Hollywood 11/15/23 1810 --- END OF REPORT Complete Blood Count Auto Di ff Reviewed date:03/14/2024 10:11:46 AM Interpretation: Performing Lab:[facility], [address] [place] [phone] Notes/Report: White Blood Count 6.2 4.8-10.8 X10*3/uL [...] Panel Reviewed date:03/14/2024 10:10:20 AM Interpretation: Performing Lab:[address] [phone] Notes/Report: Bilirubin Total 0.4 0.0-1.0 mg/dL Bilirubin Direct 0.2 0.0-0.5 mg/dL Aspartate Amino Transferase 18 5-31 U/L Alanine Aminotransferase 13 0-31 U/L Total Protein 7.5 6.5-8.0 g/dL Albumin Level 4.6 3.5-5.0 g/dL Alkaline Phosphatase 69 39-117 U/L Lipase Reviewed date:03/14/2024 10:10:12 AM Interpretation: Performing Lab:[facility], [address] [place] [phone] Notes/Report: Lipase 16 8-78 U/L TSH reflex Free T4 Reviewed date:03/14/2024 10:10:04 AM Interpretation: Performing Lab:[address] [address] Notes/Report: TSH reflex Free T4 0.54 0.32-4.0 uIU/mL Leukocytes Stool Qualitative Reviewed date:03/14/2024 11:09:45 AM Interpretation: Performing Lab:[address] [address] Notes/Report: Leukocytes Stool Qualitative NEGATIVE NEGATIVE Ova and Parasite Reviewed date:03/21/2024 09:47:12 AM Interpretation: Performing Lab:[facility], [address] [place] [phone] Notes/Report: Ova and Parasite SEE NOTE OVA AND PARASITES, CONC AND PERM SMEAR Micro Number: [id number] Test Status: Final Specimen Source: Stool Specimen Quality: Adequate CONCENTRATION 1: No ova or parasites seen TRICHROME 1: No ova or parasites seen Routine Ova and Parasite exam may not detect some parasites that occasionally cause diarrheal illness. Cryptosporidium Antigen and/or Cyclospora Isospora Exam may be ordered to detect these parasites. For additional information, please refer to https://[email or web address]/faq/F [email or web address] (This link is being provided for informational/ educational purposes only.) THIS TEST WAS PERFORMED AT: [facility] [employer] [address] [address] RAKESH DIAL MD Reason For Referral No [...] Problem Status W/U Status Risk Notes Problem 51193122 Epigastric pain (R10.13) Active confirmed Problem 85211132 Change in bowel habits (R19.4) Active confirmed Problem 057042021 Gastroesophageal reflux disease, unspecified whether esophagitis present (K21.9) Active confirmed Vital Signs Temperature 97.1 degrees Fahrenheit 09/09/2024 Blood pressure diastolic 01 mm Hg 09/09/2024 Height 63 in 09/09/2024 Blood pressure systolic 001 mm Hg 09/09/2024 Weight 127.2 lbs 09/09/2024 BMI 22.53 kg/m2 09/09/2024 Encounters Encounter Location Date Provider Diagnosis [facility] [address] [place], [place] [id number] 11/14/2023 Paul Lu Jr Epigastric pain R10.13 [facility] [address] [place] [phone] 03/11/2024 Paul Lu Jr Gastroesophageal reflux disease, unspecified whether esophagitis present K21.9 and Change in bowel habits R19.4 [facility] [address] [place] [address] 09/09/2024 Paul Lu Jr Gastroesophageal reflux disease, unspecified whether esophagitis present K21.9 and Change in bowel habits R19.4 [facility] [address] [place] [address] 11/16/2023 Paul Lu Jr [facility] [address] [place] [phone] 02/21/2024 Paul Lu Jr [facility] [address] [place] [address] 03/01/2024 Paul Lu Jr [facility] [address] [place] [address] 03/14/2024 Paul Lu Jr Assessments Encounter Date [...] treatment of this today. She will continue jogb-pir-jjzr ter simethicone. Follow-up will be in 1 [...] treatment of this today. She will continue qbcd-xte-zcpl ter simethicone. Follow-up will be in 1 year. Plan Of Treatment Pending Test Test Name Order Date LIVER PROFILE 03/11/2024 LIPASE 03/11/2024 CBC w/o DIFF 03/11/2024 STOOL WBC 03/11/2024 OVA & PARASITES (O&P) 03/11/2024 TSH REFLEX FREE T4 03/11/2024 Future Test Test Name Order Date COLONOSCOPY 03/06/2023 UPPER GI ENDOSCOPY 10/25/2023 Next Appt Details Provider Name:Paul savage Jr, 09/10/2025 10:20:00 AM, [address] [place] [address], [address], [place], [address], Insurance Providers Payer Name Payer Address Payer Phone Subscriber Number Group Number Insured Name Patient Relationship to Insured Coverage Start Date Coverage End Date [facility] [address] [address] [place], [place] [id number] IFEOMA BALL Self - patient is the [...]
--- OUTSIDE RECORDS SUMMARY | 2024-11-08 11:31 | XMS_ITS | Encounter Summary ---
Author Organization [facility] Address [address] [place], [place] [address] Phone Care Team Providers Care Elevator Runner Name Role Phone Cathie Benavidez MD Primary Care Provider [phone] Encounter Details Date Type Department Care Team (Late st Contact Info) Description 06/06/2016 Documentation [facility] Family Medicine [address] [place] [address] Family Medicine, Physician [address], [place] [phone] Social History Tobacco Use Types Packs/Day Years [...] on filedocumented in this encounter Care Teams Elevator Runner Relationship Specialty Start Date End Date Cathie Benavidez MD [address] [place] [address] PCP - General Pediatrics 08/14/19 10/11/22 documented as of this encounter
--- OUTSIDE RECORDS SUMMARY | 2024-11-08 11:31 | XMS_ITS | Encounter Summary ---
Author Organization [facility] Address [address] [place], [place] [address] Phone Care Team Providers Care Plant Taxonomist Name Role Phone Cathie Benavidez MD Primary Care Provider [phone] Encounter Details Date Type Department Care Team (Late st Contact Info) Description 09/08/2016 Documentation [facility] [place] [facility] [address] [place] [address] Family Medicine, Physician [address], [place] [phone] Social History Tobacco Use Types Packs/Day Years [...] on filedocumented in this encounter Care Teams Plant Taxonomist Relationship Specialty Start Date End Date Cathie Benavidez MD [address] [place] [address] PCP - General Pediatrics 08/14/19 10/11/22 documented as of this encounter
--- OUTSIDE RECORDS SUMMARY | 2024-11-08 11:31 | XMS_ITS | Encounter Summary ---
Author Organization [facility] Address [address] [place], [place] [address] Phone Care Team Providers Care Line Builder Name Role Phone Cathie Benavidez MD Primary Care Provider [phone] Encounter Details Date Type Department Care Team (Late st Contact Info) Description 09/08/2016 Documentation [facility] [place] [address] [place] [address] Family Medicine, Physician [address], [place] [phone] Social History Tobacco Use Types Packs/Day Years [...] on filedocumented in this encounter Care Teams Line Builder Relationship Specialty Start Date End Date Cathie Benavidez MD [address] [place] [address] PCP - General Pediatrics 08/14/19 10/11/22 documented as of this encounter
--- OUTSIDE RECORDS SUMMARY | 2024-11-08 11:31 | XMS_ITS | Clinical Summary ---
Author Organization [facility] Address [address] [place] [address] Phone Care Team Providers Care Local City Driver Name Role Phone Unavailable Primary Care Provider [...] was diagnosed with pelvic congestive syndrome at [facility] [place]. Oneal not yet been evaluated by CLINICAL LABORATORY AIDES TEACHER. First episode 07/2019: - 08/14/2019: In ED CT abd/pelvis with IV contrast normal. ??Chemistries icnluding lipase, cbc normal. ??HCG neg. - 08/17/2019 Diagnosed in the office with PID and treated. G/C negative. Transvaginal ultrasound was normal. D iagnosed with constipation, treated with miralax. - 08/20/2019 Sent back to ED by CLINICAL LABORATORY AIDES TEACHER, second transvaginal U/S was done. - 08/29/2019: [...] metronidazole. She did have an ultrasound at [facility] on 04/29 and has not heard results - 05/04/2020: Office visit here in extreme pain, sent Back to ED where she left without completing her visit. 07/23/2020: Labs and KUB normal. GI apt upcoming 07/30/2020 07/30/2020: GI (Dr Trejo) planning for endoscpoy Third episode: 11/17/2020 (age 20yr): [facility] ED for pelvic pain, suspected pelvic congestive syndrome. U/S normal except prominent pelvic vasculature. Suggest CLINICAL LABORATORY AIDES TEACHER referral. 11/26/2020 (age 20yr): : admitted to [facility] 11/18/2020 - 11/12/2020 for 5 days of severe abdominal pain. Initiated treatment for presumed PID, no other diagnosis made, treated wit abx. GC/chlam neg. Missed CLINICAL LABORATORY AIDES TEACHER appointment. Assessment & Plan (12/03/2020 9:13 AM EDT): 12/03/2020 (age 20yr): vag probe from yesterday positive for yeast. With pt on antibiotics for PID and having symptoms of vaginitis, I recommend treatment. I will call in [facility] for her. I left a message for [...] was diagnosed with pelvic congestive syndrome at [facility] 10[place]. Oneal not yet been evaluated by CLINICAL LABORATORY AIDES TEACHER. Feeling better today after recent admission to [facility] where she was treated for PID. - Recommend reschedule with CLINICAL LABORATORY AIDES TEACHER, be persistent about getting appt and confirming appt time. - Recommend adult primary care as Petr is starting to have adult medical issues and may be needing more solar site assessment specialist care going forward. Assessment & Plan (05/12/2020 [...] nd well Other Family history of Sudden /[place] under 55, Family history of Asthma, No [...] 04/30/2017, 09/2003, 09/28/2000 Procedures * Due to [place] state law, this organization might not be sharing sensitive test results. Procedure Name Priority Date/Time Associated Diagnosis Comments CHLAMYDIA AND GONORRHEA, AMPLIFIED Routine 05/05/2020 4:29 PM EST Screening examination for bacterial and spirochetal disease from Last 3 Months or Most Recently Relevant to Health Maintenance Results * Due to [place] state law, this organization might not be sharing sensitive test results. * Chlamydia and Gonorrhoea, Amplified (05/05/2020 4:29 PM EST) Chlamydia Trachomatis, DNA Probe NOT DETECTED (NEG) [facility] Comment:Reference range: NOT DETECTED URINE GC AMP PROBE NOT DETECTED (NEG) [facility] Comment: Reference range: NOT DETECTED (NOTE) The analytical performance characteristics of this assay, when used to test SurePath(TM) specimens have been determined by [employer]. The modifications have not been cleared or approved by the FDA. This assay has been validated pursuant to the CLIA regulations and is used for clinical purposes. = For additional information, please refer to https://education.[employer]/faq/XLV842 (This link is being provided for information/ educational purposes only.) = Test Performed by: [facility], [address] [place] [address]. [id number]. Cane Flume Watchman: Gil Newberry MD. Testing performed or reported by [facility], a Service of [facility], [facility] [place] [address] Baljit Faith MD, Nuclear Equipment Test Engineer Urine 05/05/2020 4:29 PM EST 05/05/2020 7:26 PM EST Cathie Benavidez MD LAB MICROBIOLOGY - GENERAL OR DERABLES Final Result [facility] from Last 3 Months or Most Recently Relevant to Health Maintenance Insurance [facility] NON PCC
--- OUTSIDE RECORDS SUMMARY | 2024-11-08 11:31 | XMS_ITS | Encounter Summary ---
Author Organization [facility] Address [address] [place] [address] Phone Care Team Providers Care Windows Consultant Name Role Phone Cathie Benavidez MD Primary Care Provider [phone] Encounter Details Date Type Department Care Team (Late st Contact Info) Description 12/09/2015 Documentation [facility] Family Medicine [address] [place] [address] Family Medicine, Physician [address], [place] [phone] Social History Tobacco Use Types Packs/Day Years [...] on filedocumented in this encounter Care Teams Windows Consultant Relationship Specialty Start Date End Date Cathie Benavidez MD [address] [place] [address] PCP - General Pediatrics 08/14/19 10/11/22 documented as of this encounter
--- OUTSIDE RECORDS SUMMARY | 2024-11-08 11:31 | XMS_ITS | Encounter Summary ---
Author Organization [facility] Address [address] [place], [place] [phone] Phone Care Team Providers Care Stage Hand Name Role Phone Cathie Benavidez MD Primary Care Provider [phone] Encounter Details Date Type Department Care Team (Late st Contact Info) Description 07/22/2016 Documentation [facility] [facility] Family Medicine [address] [place] [address] Family Medicine, Physician [address] [place] [phone] Social History Tobacco Use Types Packs/Day Years [...] on filedocumented in this encounter Care Teams Stage Hand Relationship Specialty Start Date End Date Cathie Benavidez MD [address] [place] [address] PCP - General Pediatrics 08/14/19 10/11/22 documented as of this encounter
--- OUTSIDE RECORDS SUMMARY | 2024-11-08 11:31 | XMS_ITS ---
Author Organization [facility] Address [address] [place] [address] Care Team Providers Care Painting Technician Name Role Phone Po Neel BHARDWAJ Primary Care Provider Paul Cortes Jr Unavailable Allergies No Known Allergies Results Component Value Reference Range Notes GI PANEL Reviewed date:03/14/2024 11:09:52 AM Interpretation: Performing Lab:[facility], [address] [place] [phone] Notes/Report: Campylobacter Not Detected Not Detect. Plesiomonas [...] is performed by Multiplexed PCR, utilizing the [employer] Array. REASON FOR VISIT Patient presents today [...] Progesterone 200 MG TAKE 1 CAPSULE BY [facility] EVERY DAY AT BEDTIME FOR 5 DAYS Oral for 5 Active metroNIDAZOLE 500 MG TAKE 1 TABLET BY [facility] EVERY 12 HOURS FOR 7 DAYS [...] 03/11/2024 Encounters Encounter Location Date Provider Diagnosis [facility] [address] [place] [address] 03/11/2024 Paul Lu Jr Gastroesophageal reflux disease, [...] 10:20:00 AM, [address], [address], [place], [address], Progress Notes * JOSIAH BALLB:[birth year] (23 yo F)Acc No.[id number]:03/11/2024 Progress Notes Patient:?IFEOMA BALL Provider:?Paul Lu MD :2000???Age:23 Y???Sex:Female D ate:03/11/2024 Address:[address] [place] [address] [address], [id number] Pcp:Neel Duque MD Subjective: * Chief Complaints: [...] MD Date:?0 03/11/2024 Generated for Printi ng/Nevag/eTransmitting on:?11/08/2024 11:31 AM EDT History and Physical Notes * HPI [...]
--- OUTSIDE RECORDS SUMMARY | 2024-11-08 11:31 | XMS_ITS | Encounter Summary ---
Author Organization [facility] Address [address] [place] [address] Phone Care Team Providers Care Tenderizer Tender Name Role Phone Cathie Benavidez MD Primary Care Provider [phone] Encounter Details Date Type Department Care Team (Late st Contact Info) Description 12/09/2015 Documentation [facility] Family Medicine [address] [place] [address] Family Medicine, Physician [address], [place] [phone] Social History Tobacco Use Types Packs/Day Years [...] on filedocumented in this encounter Care Teams Tenderizer Tender Relationship Specialty Start Date End Date Cathie Benavidez MD [address] [place] [address] PCP - General Pediatrics 08/14/19 10/11/22 documented as of this encounter
--- OUTSIDE RECORDS SUMMARY | 2024-11-08 11:31 | XMS_ITS | Encounter Summary ---
Author Organization [facility] Address [address] [place], [place] [address] Phone Care Team Providers Care Meeting/Event Planner Name Role Phone Cathie Benavidez MD Primary Care Provider [phone] Encounter Details Date Type Department Care Team (Late st Contact Info) Description 11/07/2016 Documentation [facility] Family Medicine [address] [place] [address] Family Medicine, Physician [address], [place] [phone] Social History Tobacco Use Types Packs/Day Years [...] on filedocumented in this encounter Care Teams Meeting/Event Planner Relationship Specialty Start Date End Date Cathie Benavidez MD [address] [place] [address] PCP - General Pediatrics 08/14/19 10/11/22 documented as of this encounter
--- OUTSIDE RECORDS SUMMARY | 2024-11-08 11:31 | XMS_ITS ---
Author Organization [facility] Address [address] [place] [address] Care Team Providers Care Sequins Slinger Name Role Phone Neel Duque MD Primary Care Provider Paul Cortes Jr Unavailable [phone] Allergies No Known Allergies REASON FOR VISIT [...] metroNIDAZOLE 500 MG TAKE 1 TABLET BY [facility] EVERY 12 HOURS FOR 7 DAYS Oral for 7 Active Progesterone 200 MG TAKE 1 CAPSULE BY [facility] EVERY DAY AT BEDTIME FOR 5 DAYS [...] 09/09/2024 Encounters Encounter Location Date Provider Diagnosis [facility] [address] [place] [address] 09/09/2024 Paul Lu Jr Gastroesophageal reflux disease, [...] treatment of this today. She will continue tflk-ueb-vui nter simethicone. Follow-up will be in 1 [...] treatment of this today. She will continue zwzp-rba-wkv nter simethicone. Follow-up will be in 1 year. Plan Of Treatment Treatment Notes Assessment Notes Gastroesophageal reflux dise ase, unspecified whether esophagitis present Gastroesophageal reflux disease material was printed Next Appt Details Follow Up: 1 Year, Reason: Provider Name:Paul savage Jr, 09/10/2025 10:20:00 AM, [address], [address], [place], [address], Progress Notes * JOSIAH BALLB:[birth year] (23 yo F)Acc No.[id number]:09/09/2024 Progress Notes Patient:?IFEOMA BALL Provider:?Paul Lu MD :2000???Age:23 Y???Sex:Female D ate:09/09/2024 Address:[address] [place] [address] , [address], [id number] Pcp:Neel Duque MD Subjective: * Chief Complaints: [...] some gas symptoms for which she uses fiot-dtt-qrcxfht simethicone. She also uses dicyclomine on a [...] treatment of this today. She will continue glnx-fsb-vdgwvdl simethicone. Follow-up will be in 1 year. Plan: * Treatment: * Immunizations:? Influenza (Not administered - Refused: Patient decision) * Procedure Codes:?G9903 Pt sc rn tbco id as non user, G8785 BP SCR NOT PRFRM REC REASON NOS * Follow Up:?1 Year * * Sign off status: Completed true * Provider:?Paul Lu MD Date:?0 09/09/2024 Generated for Shalini nunez/Amber/eTransmitting on:?11/08/2024 11:31 AM EDT History and Physical [...] some gas symptoms for which she uses rcoi-znj-ofutqkx simethicone. She also uses dicyclomine on a as needed basis, usually about 2 times per week as well. Examination Category Sub-Category Detail Notes Category Not es General Examination On exami nation today, she appears well. Skin is anicteric. Lungs are clear. Heart shows a regular rate and rhythm. Abdomen is soft without focal masses or tenderness.
--- OUTSIDE RECORDS SUMMARY | 2024-11-08 11:31 | XMS_ITS | Encounter Summary ---
Author Organization [facility] Address [address] [place], [place] [address] Phone Care Team Providers Care Bilingual Speech Language Pathologist Name Role Phone Cathie Benavidez MD Primary Care Provider [phone] Encounter Details Date Type Department Care Team (Late st Contact Info) Description 08/11/2016 Documentation [facility] [place] [address] [place] [address] Family Medicine, Physician [address], [place] [phone] Social History Tobacco Use Types Packs/Day Years [...] on filedocumented in this encounter Care Teams Bilingual Speech Language Pathologist Relationship Specialty Start Date End Date Cathie Benavidez MD [address] [place] [address] PCP - General Pediatrics 08/14/19 10/11/22 documented as of this encounter
--- OUTSIDE RECORDS SUMMARY | 2024-11-08 11:31 | XMS_ITS | Encounter Summary ---
Author Organization [facility] Address [address] [place], [place] [phone] Phone Care Team Providers Care Preparation Operator Name Role Phone Cathie Benavidez MD Primary Care Provider [phone] Encounter Details Date Type Department Care Team (Late st Contact Info) Description 10/03/2016 Documentation [facility] Family Medicine [address] [place] [address] Family Medicine, Physician [address], [place] [phone] Social History Tobacco Use Types Packs/Day Years [...] on filedocumented in this encounter Care Teams Preparation Operator Relationship Specialty Start Date End Date Cathie Benavidez MD [address] [place] [address] PCP - General Pediatrics 08/14/19 10/11/22 documented as of this encounter
== END 2024-11-08 11:34 | disposition home or self-care (01) ==
LOC: HO.HMCH 11:03
PROVIDERS: PCP Internal Medicine; Visit Provider Nurse Practitioner Family
DX: R11.2 Nausea with vomiting, unspecified (principal); F12.90 Cannabis use, unspecified, uncomplicated; K59.01 Slow transit constipation

== ENCOUNTER → 2024-11-08 11:02 | Outpatient (BNVA) | payer OTHER, SELFPAY | PROVIDERS: PCP Internal Medicine; Visit Provider Nurse Practitioner Family | DX: K59.01 Slow transit constipation (principal); R10.9 Unspecified abdominal pain; R11.2 Nausea with vomiting, unspecified; F12.90 Cannabis use, unspecified, uncomplicated | CPT/HCPCS: 99212 ==

== ENCOUNTER 2024-11-27 10:25 | Outpatient (AMB) | payer OTHER, SELFPAY ==
[2024-11-27 10:29] VITALS: BP 110/62; PULSE 63; O2SAT 98; BMI 22.2
--- NOTE | 2024-11-27 10:29 | A.OFFPC_ITS ---
Vital Signs 11/27/24 10:29 Height 5 ft 3 in Weight 125 lb 8 oz BMI 22.2 BP 110/62 Blood Pressure Location Lt brachial Position Sitting Pulse 63 Pulse Source Pulse Oximeter Pulse Oximetry (%) 98 Oxygen Delivery Method Room Air Intake Visit Reasons: Annual Exam Pile Trimmer Required: No Accompanied by: Self / Same As Patient Allergies Seasonal Allergies Allergy (Intermediate, Verified 11/27/24 10:30) Itchy Eyes Medication List - Last Reconciled 11/27/24 by Neel Duque MD acetaminophen 500 mg PO Q6H PRN albuterol sulfate 90 mcg/actuation (Ventolin HFA) 2 puffs inhalation Q6H PRN bisacodyl (Dulcolax (bisacodyl)) 5 mg PO BEDTIME dextrin (Fiber (dextrin)) 3 grams PO DAILY dicyclomine 10 mg PO BID ibuprofen 400 mg PO Q6H PRN menthol-zinc oxide 0.44-20.6 % (Calmoseptine) 1 appl topical QID PRN ondansetron 4 mg PO Q8H PRN simethicone (Gas Relief (simethicone)) 125 mg PO BID-QID PRN Tobacco use date assessed: 11/27/24 Dental Screening Dental Screen Date: 11/27/24 Did you have a dental visit in the last 12 months?: Yes Did you have a dental problem in the last 6 months where you did not have access to dental care?: No Was dental information given to patient?: Patient has dentist [facility] Medical History (Updated 11/27/24 @ 10:54 by Neel Duque MD) Diarrhea Acute gastroenteritis External hemorrhoids with complication Anxiety and depression Cough Cough due to LYNN inhibitor Seasonal allergies Low back pain Migraine with aura Asthma Surgical History (Updated 11/27/24 @ 10:43 by Neel Duque MD) History of salpingectomy H/O colonoscopy Family History Paternal Grandmother Breast CA Mother Crohn disease Father Migraine Brother Bipolar 1 disorder Maternal Grandmother Heart disease Maternal Aunt Colon cancer Other Mental health disorder Social History (Updated 11/27/24 @ 10:44 by Neel Duque MD) Housing: Apartment Alcohol intake: never Patient Tobacco Use Status: Never used Tobacco Years Smoked: marijuana e-Cigarette/Vaping Use: Never Used Second Hand Smoke Exposure: No Substance Use Type: Marijuana service: No Current occupational status: employed 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 1. Little interest or pleasure in doing things: not at all 2. Feeling down, depressed, or hopeless: not at all 3. Trouble falling or staying asleep, or sleeping too much: more than half the days 4. Feeling tired or having little energy: more than half the days 5. Poor appetite or overeating: more than half the days 6. Feeling bad about yourself - or that you are a failure or have let yourself or your family down: not at all 7. Trouble concentrating on things, such as reading the newspaper or watching television: not at all 8. Moving or speaking so slowly that other people could have noticed. Or the opposite - being so fidgety or restless that you have been moving around a lot more than usual: not at all 9. Thoughts that you would be better off or of hurting yourself in some way: not at all Total score: 6 Source: Developed by Drs. Reji Yee, Jennifer Majano, Keanu Acre and colleagues, with an educational girma from [employer]. Thrive Questionnaire Date Thrive assessed: 11/27/24 I am a: Patient What is your living situation today?: I have a steady place to live Within the past 12 months, did the food you bought not last and you didn't have the money to get more?: Never true Within the past 12 months, did you worry whether your food would run out before you got money to buy more?: Never true Do you have trouble paying for medicines?: No Do you have trouble getting transportation to medical appointments?: No Do you have trouble paying your heating and electricity bill?: No Do you have trouble taking care of your child, family member or friend?: No Do you have trouble with day-to-day activities such as bathing, preparing meals, shopping, managing finances, etc.?: No Are you currently unemployed and looking for a job?: No Are you interested in more education?: No Please select the resources that you would like help with: None Currently or been in a relationship where the following occur: No concerns reported THRIVE Score: 0 AUDIT C Alcohol Use Questionnaire (AUDIT-C) 1. How often do you have a drink containing alcohol?: Never 3. How often do you have six or more drinks on one occasion?: Never Total Score: 0 ELVA-7 AMB Questionnaire ELVA-7 Date ELVA - 7 assessed: 11/27/24 Feeling nervous, anxious, or on edge: 2 = More than half the days Not being able to stop or control worryin = Several days Worrying too much about different things: 0 = Not at all Trouble relaxin = Several days Being so restless that it is hard to sit still: 0 = Not at all Becoming easily annoyed or irritable: 1 = Several days Feeling afraid as if something awful might happen: 0 = Not at all Total ELVA-7 score (0-4 normal; 5-9 mild; 10-14 moderate; 15-21 severe): 5 Source: Developed by Drs. Reji Yee, Jennifer Majano, Keanu Arce and colleagues, with an educational girma from [employer]. Review of Systems Const Denies poor appetite and Denies weakness Eyes Denies no additional complaints ENT Reports Normal hearing present, Denies dizziness, Denies nasal congestion, Denies tinnitus and Denies sore throat Card Denies chest pain, Denies syncope, Denies rapid heart rate and Denies dyspnea Resp Denies cough and Denies dyspnea GI Denies change in stool character, Reports constipation, Denies diarrhea, Denies nausea and Denies vomiting Denies urinary frequency, Denies difficulty voiding and Denies dysuria Neuro Reports Normal hearing present, Denies confusion, Denies dizziness, Denies syncope and Denies weakness Psych Denies confusion Physical exam (Primary Care) Vital Signs: Last Vital Signs Pulse 63 11/27/24 10:29 BP 110/62 11/27/24 10:29 Pulse Ox 98 11/27/24 10:29 Oxygen Delivery Method Room Air 11/27/24 10:29 BMI result Body Mass Index 22.2 Tobacco/Smoking Status: Tobacco use Status Tobacco use date assessed 11/27/24 11/27/24 10:34 Patient Tobacco Use Status Never used Tobacco 11/27/24 10:44 e-Cigarette/Vaping Use Never Used 11/27/24 10:44 PHQ-9: PHQ-9 Score PHQ-9: Total score 6 11/27/24 10:38 Thrive Assessment: Date of Thrive Assessment Date Thrive assessed 11/27/24 11/27/24 10:34 Currently or been in a relationship where the following occur: No concerns reported Const General: No confusion Orientation/consciousness: No confusion HENMT Head: Yes normocephalic Ears: external ears normal Face and sinus: Yes normal facial exam Mouth: moist mucous membranes Throat: Yes tonsils normal Eyes Other: R ear impacted cerumen Conjunctivae: conjunctivae normal Pupils: Equal, round and reactive pupils present and Pupil accommodation reflex normal Direct Ophthalmoscopy: normal light reflex Neck Neck: No lymphadenopathy Thyroid: Thyroid normal Chest Chest palpation & inspection: normal inspection of the chest Resp Effort & Inspection: normal respiratory effort and no audible wheezes Auscultation: clear to auscultation bilaterally, no crackles, no wheezes and lung sounds not diminished Cardio Rate: regular rate Rhythm: regular rhythm Peripheral pulses: radial pulses present and dorsalis pedis present GI Palpation (GI): no masses Auscultation: normal bowel sounds and normoactive bowel sounds Rectal Exam - Female: deferred Skin General skin exam: no rashes or lesions noted Rashes: no rashes Neuro General: No confusion Cranial nerves: Yes Equal, round and reactive pupils present and Yes Normal hearing present Cognition (Neuro): normal cognition Gait exam (Neuro): Normal gait present Motor exam (neuro): 5/5 motor strength present throughout Deep tendon reflexes (DTR's): Right brachioradialis reflex intensity grade: 2+, Left brachioradialis reflex intensity grade: 2+, Right patellar reflex intensity grade: 2+ and Left patellar reflex intensity grade: 2+ Extrem General: No edema Coding Level of Care Code Est Pt Prev Care 18-39y(79083) Diagnoses Annual physical exam Z00.00 Asthma J45.909 Migraine with aura G43.109 Elevated liver function tests R79.89 Slow transit constipation K59.01 Constipation type: slow transit constipation Left ear impacted cerumen H61.22 Right hip pain M25.551 Microcytosis R71.8 Assessment & Plan Assessment & Plan (1) Annual physical exam: Code(s): Z00.00 - Encounter for general adult medical examination without abnormal findings Category: Medical Plan: Patient is advised to eat healthy, keep well hydrated, keep active and have adequate sleep. (2) Asthma: Code(s): J45.909 - Unspecified asthma, uncomplicated Category: Medical Plan: On albuterol inhaler as needed (3) Migraine with aura: Code(s): G43.109 - Migraine with aura, not intractable, without status migrainosus Category: Medical Plan: Keep well hydrated, eat healthy, have enough sleep and keep active (4) Elevated liver function tests: Code(s): R79.89 - Other specified abnormal findings of blood chemistry Category: Medical Plan: Discussed about elevated liver function test cat scan done was negative (5) Constipation: Code(s): K59.00 - Constipation, unspecified Category: Medical Qualifiers: Constipation type: slow transit constipation Qualified Code(s): K59.01 - Slow transit constipation (6) Left ear impacted cerumen: Code(s): H61.22 - Impacted cerumen, left ear Category: Medical (7) Right hip pain: Code(s): M25.551 - Pain in right hip Category: Medical (8) Microcytosis: Code(s): R71.8 - Other abnormality of red blood cells Category: Medical Plan History of Present Illness The patient is a 24-year-old female presenting for an annual physical examination. She has asthma, which she manages with an as-needed Albuterol inhaler, utilizing it about once weekly. Her medical history includes migraines and anxiety disorder. There is a questionable diagnosis of PCOS. She faced hyperemesis associated with cannabinoid use, leading to a recommendation to cease using marijuana. Constipation is addressed with Dulcolax every other night. Laboratory investigations carried out in October demonstrated normal blood count with mild microcytosis. Despite normal renal function and electrolyte levels, she has mildly elevated liver transaminases and non-fasting hyperglycemia. A recent CT scan of the abdomen returned negative results. Urine tests in 2020 were positive for opioids and marijuana. Her family history includes heart attack (maternal grandmother), breast cancer (paternal grandmother), and colon cancer (maternal great-aunt). Health Maintenance - Discussed liver function monitoring given mild transaminase elevation. - Advised fasting blood glucose to reassess elevated levels. - Encouraged smoking cessation and suggested a switch to edibles. - Reviewed hydration, with emphasis on increasing water intake to facilitate urine and bowel regulation. - Counseled on cardiovascular, cancer, and general health risk reduction through diet, exercise, and lifestyle modification. Social History - Denies alcohol and cigarette use; uses marijuana but cautioned against smoking. - Reports adequate hydration, though advised to increase water intake. - Use of cannabis noted but encouraged transition to non-smoking forms. - Concern regarding orthostatic symptoms due to inadequate fluid intake. - Exercise frequency not specified, advised to remain active. Review of Systems - Neurological: Denies dizziness, syncope, or neurologic deficits. - Respiratory: Denies shortness of breath, chest pain. - Gastrointestinal: Reports intermittent nausea; denies vomiting or dysphagia. - Urinary: Reports frequent urination without dysuria or nocturia. - Musculoskeletal: Reports hip pain and popping sound. - General: Denies fever, easy bruising noted with NSAID usage. Physical Exam General: Cooperative, healthy appearing, comfortable, no acute distress and well developed Orientation: Patient oriented x3 Limitations: No limitations Head: Normal to inspection Ears: Hearing grossly normal bilaterally, some earwax present, unable to see eardrum Nose: Normal external nose present Face and sinus: Normal facial exam Eyes: Appearance normal, both eyes and all related structures Neck: Normal visual inspection and Yes full ROM Respiratory: Normal respiratory effort and able to speak in complete sentences. Clear to auscultation bilaterally Cardiovascular: Regular rate and rhythm. Normal S1 and S2 GI: Normal to inspection. Soft to palpation and nontender, slight discomfort in gallbladder area Skin: No rashes or lesions noted Neuro: Patient oriented x3 Extremities: Normal to inspection, right hip pops with movement, x-ray recommended Results - Labs: Normal blood count with mild microcytosis noted. Electrolytes within normal range. Elevated transaminases. - Tests: Non-fasting blood glucose mildly elevated. - Imaging: CT abdomen negative for acute pathology. Plan Asthma management involves the continued usage of Albuterol as needed. Migraine and anxiety treatments remain consistent; however, alternatives to cannabis use like edibles were suggested. Constipation control with Dulcolax is to be maintained. Follow-up fasting liver functions are planned, and fasting glucose will be reassessed. Right hip x-rays are scheduled to understand musculoskeletal complaints. Emphasis was placed on lifestyle modifications for overall health benefits. Patient was informed and verbally consented to the use of an ambient scribe for clinic note documentation during this visit. Discussion Notes We discussed the need for close follow-up on liver function given the mildly elevated transaminases and the importance of avoiding hepatotoxic agents to prevent further liver complications. Smoking cessation of marijuana was reinforced, and I explained the potential cardiovascular and respiratory risks associated with its use, advising a move towards edibles. The significance of lifestyle changes?dietary improvements, hydration, and exercise?were emphasized, particularly regarding their impact on the patient's various conditions including microcytosis, constipation, and liver enzyme regulation. Follow-up testing for fasting glucose was warranted to accurately assess glucose metabolism. For musculoskeletal concerns, x-ray imaging of the right hip was discussed for diagnostic clarity. I provided anticipatory guidance on the tests, advising the patient to schedule these at her convenience, and clarified the laboratory hours for accessibility. Patient Instructions - Use Albuterol inhaler as needed for asthma symptoms. - Consider switching from smoking marijuana to edibles. - Take Dulcolax every other night as needed for constipation. - Increase water intake to 6-8 glasses daily. - Follow dietary recommendations for fiber and balanced nutrition. - Schedule fasting glucose and liver function tests at your convenience. - Plan an x-ray for the right hip if symptoms persist. - Address any worsening symptoms or new concerns promptly. Orders: Orders Hepatitis B,C Profile Today R71.8 - Other abnormality of red blood cells, R79.89 - Other specified abnormal findings of blood chemistry Comprehensive Met. Panel Today R71.8 - Other abnormality of red blood cells Complete Blood Count Auto Diff Today R71.8 - Other abnormality of red blood cells Ferritin Today R71.8 - Other abnormality of red blood cells Reticulocyte Count Today R71.8 - Other abnormality of red blood cells IRON PROFILE Today R71.8 - Other abnormality of red blood cells Liver Panel Today R71.8 - Other abnormality of red blood cells, R79.89 - Other specified abnormal findings of blood chemistry Hemoglobin A1c Today R71.8 - Other abnormality of red blood cells XR hip RT min 2V Today M25.551 - Pain in right hip
--- OUTSIDE RECORDS SUMMARY | 2024-11-27 11:06 | XMS_ITS | Encounter Summary ---
Author Organization [facility] Address [address] [place] [id number] Phone Care Team Providers Care Pyridine Recovery Operator Name Role Phone Cathie Benavidez MD Primary Care Provider [phone] Encounter Details Date Type Department Care Team (Late st Contact Info) Description 02/09/2017 Documentation [facility] [place] Family Medicine [address] [place] [address] Family Medicine, Physician [address], [place] [id number] Social History Tobacco Use Types Packs/Day Years [...] on filedocumented in this encounter Care Teams Pyridine Recovery Operator Relationship Specialty Start Date End Date Cathie Benavidez MD [address] [place] [id number] PCP - General Pediatrics 08/14/19 10/11/22 documented as of this encounter
== END 2024-11-27 11:01 | disposition home or self-care (01) ==
LOC: HO.HMCH 10:26
PROVIDERS: PCP Internal Medicine; Visit Provider Internal Medicine
DX: Z00.00 Encounter for general adult medical examination without abnormal findings (principal); J45.909 Unspecified asthma, uncomplicated; G43.109 Migraine with aura, not intractable, without status migrainosus; R79.89 Other specified abnormal findings of blood chemistry; K59.01 Slow transit constipation; H61.22 Impacted cerumen, left ear; M25.551 Pain in right hip; R71.8 Other abnormality of red blood cells

== ENCOUNTER → 2024-11-27 10:25 | Outpatient (BNVA) | payer OTHER, SELFPAY | PROVIDERS: PCP Internal Medicine; Visit Provider Internal Medicine | DX: Z00.00 Encounter for general adult medical examination without abnormal findings (principal); J45.909 Unspecified asthma, uncomplicated; G43.109 Migraine with aura, not intractable, without status migrainosus; R79.89 Other specified abnormal findings of blood chemistry; K59.01 Slow transit constipation; H61.22 Impacted cerumen, left ear; M25.551 Pain in right hip; R71.8 Other abnormality of red blood cells | CPT/HCPCS: 99395 ==

== ENCOUNTER 2024-12-03 09:25 | Outpatient (REF) | payer OTHER, SELFPAY ==
--- NOTE | ~2024-12-03 | XR_ITS ---
CLINICAL HISTORY: M25.551 - Pain in right hip Two views of right hip Comparison: None Findings: No acute fracture or dislocation. No significant arthritic change. The soft tissues are unremarkable. IMPRESSION: No acute findings. This document has been electronically signed by: Cony Barlow MD on 12/03/2024 15:30:03
[2024-12-03 09:39] LABS: MANUAL DIFF FLAG NO
[2024-12-03 09:48] LABS: Basophils Percent Auto 0.5 % (0-2); Eosinophils Absolute Auto 0.1 X10*3/uL (0.0-0.4); Eosinophils Percent Auto 1.7 % (0-4); Hematocrit 41.2 % (37.0-47.0); Hemoglobin 14.1 g/dl (12.0-16.0); Imm Gran Abs Auto 0.02 X10*3/uL (0.00-0.03); Imm Gran Pct Auto 0.3 % (0.0-0.4); Immature Retic Fraction 2.2 % (3.0-15.9); Mean Corpuscular HGB Conc 34.2 g/dl (31.0-35.0); Mean Corpuscular Volume 81.7 fL (80.0-98.0); Mean Platelet Volume 10.3 fL (9.4-12.3); Monocytes Absolute Auto 0.4 X10*3/uL (0.1-1.2); Monocytes Percent Auto 6.8 % (2-11); Neutrophils Absolute Auto 3.7 x10*3/uL (2.0-8.3); Neutrophils Percent Auto 58.7 % (45-73); Platelet Count 260 X10*3/uL (160-400); Red Blood Count 5.04 X10*6/uL (4.20-5.50); Red Cell Distribution Width 13.2 % (11.0-16.0); Retic HGB Equivalent 33.2 pg (30.0-35.0); Reticulocyte Percent 1.2 % (0.5-1.8); Reticulocytes Absolute 0.059 X10*6/uL (0.026-0.095); White Blood Count 6.4 X10*3/uL (4.8-10.8)
[2024-12-03 09:58] LABS: Estimated Average Glucose 100 mg/dL; Hemoglobin A1c % 5.1 % (<6.0)
--- OUTSIDE RECORDS SUMMARY | 2024-12-03 10:19 | XMS_ITS | Encounter Summary ---
Author Organization [facility] Address [address] [place] [phone] Phone Care Team Providers Care Gas Pipe Layer Name Role Phone Cathie Benavidez MD Primary Care Provider [phone] Encounter Details Date Type Department Care Team (Late st Contact Info) Description 02/09/2017 [place] [facility] [place] [address] [place] [address] Family Medicine, Physician [address] [phone] Social History Tobacco Use Types Packs/Day Years [...] on filedocumented in this encounter Care Teams Gas Pipe Layer Relationship Specialty Start Date End Date Cathie Benavidez MD [address] [place] [id number] PCP - General Pediatrics 08/14/19 10/11/22 documented as of this encounter
[2024-12-03 10:42] LABS: Alanine Aminotransferase 19 U/L (0-31); Albumin Level 4.6 g/dL (3.5-5.0); Alkaline Phosphatase 63 U/L (39-117); Anion Gap 9 (12-20); Aspartate Amino Transferase 21 U/L (5-31); Bilirubin Direct 0.2 mg/dL (0.0-0.5); Bilirubin Total 0.5 mg/dL (0.0-1.0); Blood Urea Nitrogen 9 mg/dL (9-16); Calcium 9.3 mg/dL (8.4-10.2); Carbon Dioxide 25 mmol/L (22-29); Chloride 111 mmol/L (96-108); Estimated Glomerular Filt Rate > 60; Glucose Random 90 mg/dL (60-115); Iron 50 mcg/dL (30-160); Percent Iron Saturation 20 % (15-50); Potassium 3.9 mmol/L (3.3-5.1); Sodium 141 mmol/L (135-145); Total Iron Binding Capacity 250 mcg/dL (228-428); Total Protein 7.3 g/dL (6.5-8.0); Unsaturated Iron Binding 200 ug/dL
[2024-12-03 10:46] LABS: Ferritin 83 ng/mL (10-122)
[2024-12-03 10:47] LABS: HBS Num1 0.29 mIU/mL (0-7.99); HBc Num1 0.05 S/CO (0.00-0.79); HBsAGNum1 0.35 S/CO (0.00-0.99); Hepatitis B Core Antibody Nonreactive (Nonreactive); Hepatitis B Surface Antigen Negative (Negative); ~HepC Num1 0.11 S/CO (0.00-0.79); ~Hepatitis B Surface Antibody NONREACTIVE (Nonreactive); ~Hepatitis C Antibody Nonreactive (Nonreactive)
== END 2024-12-03 09:26 | disposition home or self-care (01) ==
LOC: HO.XRAY 09:25
PROVIDERS: PCP Internal Medicine; Visit Provider Internal Medicine
DX: R71.8 Other abnormality of red blood cells (principal); M25.551 Pain in right hip; R79.89 Other specified abnormal findings of blood chemistry
CPT/HCPCS: 36415; 73502; 80053; 82248; 82728; 83036; 83540; 85025; 85045; 86704; 86706; 86803; 87340

== ENCOUNTER → 2024-12-03 09:40 | Outpatient (BNV) | payer OTHER, SELFPAY | PROVIDERS: PCP Internal Medicine; Visit Provider Radiology Diagnostic Radiology | DX: M25.551 Pain in right hip (principal) | CPT/HCPCS: 73502 ==

== ENCOUNTER 2025-01-26 20:55 | Emergency (ER) | payer OTHER, SELFPAY ==
--- NOTE | 2025-01-26 | ECG_ITS ---
Test Reason : DIZZINESS Blood Pressure : */* mmHG Vent. Rate : 80 BPM Atrial Rate : 80 BPM P-R Int : 122 ms QRS Dur : 66 ms QT Int : 370 ms P-R-T Axes : 72 35 24 degrees QTcB Int : 426 ms Normal sinus rhythm Normal ECG When compared with ECG of 05-Nov-2024 22:40, No significant change was found Referred By: Generic ED Physician Electronically Signed By: EVELYN ROGERS
[2025-01-26 21:04] VITALS: BP 92/59; BP 94/52; PULSE 87; RESP 16; TEMP 36.6; O2SAT 98; O2SAT 99; BMI 23.0
[2025-01-26 21:30] VITALS: BP 94/52; PULSE 87; RESP 16; TEMP 36.6; O2SAT 98
[2025-01-26 22:05] LABS: MANUAL DIFF FLAG NO
[2025-01-26 22:08] LABS: Hematocrit 36.0 % (37.0-47.0); Hemoglobin 13.1 g/dl (12.0-16.0); Imm Gran Abs Auto 0.02 X10*3/uL (0.00-0.03); Imm Gran Pct Auto 0.3 % (0.0-0.4); Lymphocytes Absolute Auto 1.9 X10*3/uL (1.2-4.9); Mean Corpuscular HGB Conc 36.4 g/dl (31.0-35.0); Mean Corpuscular Hemoglobin 28.6 pg (27.0-33.0); Mean Corpuscular Volume 78.6 fL (80.0-98.0); NRBC Abs Auto 0.000 X10*3/uL (0.0-0.012); NRBC Pct Auto 0.0 /100WBC (0.0-0.2); Platelet Count 235 X10*3/uL (160-400); Red Blood Count 4.58 X10*6/uL (4.20-5.50); White Blood Count 8.0 X10*3/uL (4.8-10.8)
[2025-01-26 22:14] LABS: Appearance Urine Clear; Glucose Urine UA Negative (Negative); PH 6.5 (5.0-9.0); Specific Gravity - Urine 1.010 (1.005-1.025)
[2025-01-26 22:24] LABS: Alanine Aminotransferase 15 U/L (0-31); Albumin Level 4.3 g/dL (3.5-5.0); Alkaline Phosphatase 56 U/L (39-117); Anion Gap 10 (12-20); Aspartate Amino Transferase 30 U/L (5-31); Blood Urea Nitrogen 11 mg/dL (9-16); Calcium 8.4 mg/dL (8.4-10.2); Carbon Dioxide 22 mmol/L (22-29); Chloride 111 mmol/L (96-108); Creatinine Clr Calc Pharmacy 97.2; Estimated Glomerular Filt Rate > 60; Lipase 13 U/L (8-78); Potassium 4.3 mmol/L (3.3-5.1); Sodium 139 mmol/L (135-145); Total Protein 7.1 g/dL (6.5-8.0)
[2025-01-26 22:25] LABS: Cannabinoid Screen Urine POSITIVE (Not Detect)
[2025-01-26 23:27] LABS: UPreg QC Valid YES
--- NOTE | 2025-01-26 23:32 | ED_ITS ---
HPI - Dizziness General Chief Complaint: Dizziness Stated Complaint: dizzy after smoking marijuana Time Seen by Provider: 01/26/25 21:10 Source: patient and EMS Mode of arrival: EMS Limitations: no limitations History of Present Illness ED Provider: Dr. Jessica Carrasquillo HPI Narrative: 24-year-old female with extensive past medical history including migraine headaches, PCOS, IBS presenting with near syncopal episode that occurred immediately prior to arrival. Patient states she was at the [facility] festival with her mom today, drinking alcohol and smoking marijuana. States that she developed sudden-onset dizziness and numbness and tingling in her hands and feet. It is felt as though she might pass out. States that her vision ?went black? but she did not lose consciousness completely. Never fell or hit her head. Had been feeling well prior to the incident. Denies recent illness including fevers or chills, cough or cold-type symptoms, chest pain, difficulty breathing, headaches, vision changes, sore throat, abdominal pain, nausea or vomiting, bowel changes or urinary complaints. She does have a history of IBS and has been dealing with bloating in the abdomen. She sees party demonstrator for this. Menstrual cycle was last week. Related Data Home Medications ?Medication ?Instructions ?Recorded ?Confirmed acetaminophen 500 mg tablet 500 mg PO Q6H PRN pain 04/1711/27/24 albuterol sulfate 90 mcg/actuation 2 puff inhalation Q 6H PRN wheezing 04/04/23 11/27/24 aerosol inhaler (Ventolin HFA) dextrin 3 gram/3.5 gram oral 3 g PO DAILY 11/27/2410/18 powder (Fiber (dextrin)) dicyclomine 10 mg capsule 10 mg PO BID 11/27/24 Previous Rx's ?Medication ?Instructions ?Recorded menthol 0.44 %-zinc oxide 20.6 % 1 appl topical QID PA N hemorrhoids 03/13/24 topical ointment (Calmoseptine) #113 grams ibuprofen 400 mg tablet 400 mg PO Q6H PRN fever or p ain 08/06/24 #14 tabs simethicone 125 mg capsule (Gas 125 mg PO BID-QID PRN abdominal 11/07/24 Relief (simethicone)) distention #20 caps bisacodyl 5 mg tablet,delayed 5 mg PO BEDTIME #20 tabs 11/08/24 release (Dulcolax (bisacodyl)) ondansetron 4 mg disintegrating 4 mg PO Q8H PRN nausea and 11/08/24 tablet vomiting #20 tabs Allergies Allergy/AdvReac Type Severity Reaction Status Date / Time Seasonal Allergies Allergy Intermediate Itchy Eyes Verified 01/26/25 21:05 Review of Systems 2 Review of Systems: as per HPI, full review of systems performed and negative but for the above mentioned pertinent positives and negatives. [facility] Past Medical History Attestation statement: The following information was validated with the patient. [facility] Narrative: IBS, PCOS, migraine headaches, occasional marijuana and alcohol use, denies other illicit substance use Medical History Diarrhea Acute gastroenteritis External hemorrhoids with complication Anxiety and depression Cough Cough due to LYNN inhibitor Seasonal allergies Low back pain Migraine with aura Asthma Surgical History History of salpingectomy H/O colonoscopy Family History Family History Paternal Grandmother Breast CA Mother Crohn disease Father Migraine Brother Bipolar 1 disorder Maternal Grandmother Heart disease Maternal Aunt Colon cancer Other Mental health disorder Social History Social History Housing: Apartment Alcohol intake: never Patient Tobacco Use Status: Never used Tobacco Years Smoked: marijuana e-Cigarette/Vaping Use: Never Used Second Hand Smoke Exposure: No Use of substances other than those prescribed or required for medical reasons: Yes Substance Use Type: Marijuana Advance Directives: No Advance Directives Information Provided: No service: No Current occupational status: employed 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 SKIN: Pale, warm, dry, no rashes noted. HEENT: Normocephalic, atraumatic, no stridor, dry mucous membranes, dentition intact, EOMI, PERRLA. NECK: Soft, supple, full ROM, midline structures nontender, no step-offs, no deformities, no lymphadenopathy. CHEST: Heart regular rhythm, no murmurs, symmetric chest rise and fall. PULMONARY: Clear to auscultation bilaterally, diminished at the bases, no labored breathing, no wheezes/rhales/rhonchi. ABDOMINAL: Soft, nondistended, nontender, positive bowel sounds in all quadrants. : Deferred. MUSCULOSKELETAL: Normal tone, full range of motion, no deformities, no peripheral edema. NEURO: Alert and oriented x3, CN II through XII intact, equal strength and sensation bilateral upper and lower extremities, no focal neurologic deficits. PSYCHIATRIC: Flat affect, fluid speech, good eye contact and appropriate demeanor. Vital Signs: Vital Signs: Last Vital Signs Temp 97.8 F 01/26/25 21:30 Pulse 87 01/26/25 21:30 Resp 16 01/26/25 21:30 BP 94/52 L 01/26/25 21:30 Pulse Ox 98 01/26/25 21:30 O2 Del Method Room Air 01/26/25 21:30 BMI result Body Mass Index 23.0 Medical Decision Making Medical Decision Making [facility] Narrative: Patient presents today with chief complaint of syncope. I considered multiple diagnoses of etiology including most importantly cardiac arrhythmia, seizure, subarachnoid hemorrhage, vascular catastrophe such as AAA, as well as other more common etiologies such as a vasovagal syncope and orthostasis. Broad-based work- up was initiated to evaluate etiology including EKG and drug screens. Patient's workup today has been reassuring. No evidence of significant anemia, infectious process, electrolyte abnormality, drug use aside from marijuana. She has received a 500 cc bolus from EMS and reports feeling significantly better. I see no indication for CT imaging of the brain given her history of near- syncope and migraine headaches. She has a normal neurologic exam and normal vital signs. Blood pressure is slightly soft but she is rather small. We had an extensive discussion regarding importance of follow-up with primary care as well as strict return precautions to the ED. Clinical picture favors vasovagal syncope. Discharged home with instructions to avoid alcohol, increase fluid intake. The patient understands and agrees with plan for discharge. Discharged home in stable condition Differential Diagnosis Differential Diagnoses: The differential diagnosis associated with the presentation includes (As above) Admission/Observation Consideration of admission/observation: Escalation of care including admission/observation considered Lab Data [facility] Lab Attestation statement: I reviewed the patient's lab results. 01/26/25 22:00 01/26/25 22:00 Labs: Lab Results 01/26/25 01/26/25 Range/Units 22:00 22:05 WBC 8.0 (4.8-10.8) X10*3/uL RBC 4.58 (4.20-5.50) X10*6/uL Hgb 13.1 (12.0-16.0) g/dl Hct 36.0 L (37.0-47.0) % MCV 78.6 L (80.0-98.0) fL MCH 28.6 (27.0-33.0) pg MCHC 36.4 H (31.0-35.0) g/dl RDW 12.9 (11.0-16.0) % Plt Count 235 (160-400) X10*3/uL MPV 11.0 (9.4-12.3) fL Immature Gran % (Auto) 0.3 (0.0-0.4) % Neut % (Auto) 68.6 (45-73) % Lymph % (Auto) 24.3 (20-40) % [place] % (Auto) 5.5 (2-11) % Eos % (Auto) 0.9 (0-4) % Baso % (Auto) 0.4 (0-2) % Lymph # (Auto) 1.9 (1.2-4.9) X10*3/uL [place] # (Auto) 0.4 (0.1-1.2) X10*3/uL Eos # (Auto) 0.1 (0.0-0.4) X10*3/uL Baso # (Auto) 0.0 (0.0-0.2) X10*3/uL Abs Immat Gran (auto) 0.02 (0.00-0.03) X10*3/uL Absolute Neuts (auto) 5.5 (2.0-8.3) x10*3/uL Absolute Nucleated RBC 0.000 (0.0-0.012) X10*3/uL Nucleated RBC % (auto) 0.0 (0.0-0.2) /100WBC Sodium 139 (135-145) mmol/L Potassium 4.3 (3.3-5.1) mmol/L Chloride 111 H (96-108) mmol/L Carbon Dioxide 22 (22-29) mmol/L Anion Gap 10 L (12-20) BUN 11 (9-16) mg/dL Creatinine 0.70 (0.5-1.4) mg/dL Estim Creat Clear Calc 97.2 Estimated GFR > 60 Random Glucose 95 (60-115) mg/dL Calcium 8.4 D (8.4-10.2) mg/dL Total Bilirubin 0.4 (0.0-1.0) mg/dL AST 30 (5-31) U/L ALT 15 (0-31) U/L Alkaline Phosphatase 56 (39-117) U/L Total Protein 7.1 (6.5-8.0) g/dL Albumin 4.3 (3.5-5.0) g/dL Lipase 13 (8-78) U/L Urine Color Yellow Urine Appearance Clear Urine pH 6.5 (5.0-9.0) Ur Specific [place] 1.010 (1.005-1.025) Urine Protein Negative (Neg-Trace) mg/dL Urine Glucose (UA) Negative (Negative) mg/dL Urine Ketones Negative (Negative) mg/dL Urine Blood Negative (Negative) Urine Nitrite Negative (Negative) Ur Leukocyte Esterase Negative (Negative) Urine RBC 0-2 (0-2) /HPF Urine WBC 0-5 (0-5) /HPF Ur Squamous Epith Cells 0-2 (0-2) /HPF Urine Bacteria None Seen (None Seen) Hyaline Casts 0-2 (0-2) /LPF Urine Test NEGATIVE (NEGATIVE) Urine Opiates Screen Not Detected (Not Detect) Ur Buprenorphine Scrn Not Detected (Not Detect) ng/mL Ur Oxycodone Screen Not Detected (Not Detect) ng/mL Urine Methadone Screen Not Detected (Not Detect) ng/mL Urine Fentanyl Screen Not Detected (Not Detect) Ur Barbiturates Screen Not Detected (Not Detect) Ur Phencyclidine Scrn Not Detected (Not Detect) Ur Amphetamines Screen Not Detected (Not Detect) U Benzodiazepines Scrn Not Detected (Not Detect) Urine Cocaine Screen Not Detected (Not Detect) U Marijuana (THC) Screen POSITIVE H (Not Detect) Independent Interpretation I performed an independent interpretation of an: EKG Interpretation: My independent interpretation of the ECG reveals normal sinus rhythm with rate of 80, normal axis, normal intervals, no ST elevations or depressions to suggest ischemic changes, relatively unchanged from previous on 11/05/2024. Independent Historian Clinical information obtained from an independent historian. History obtained from or confirmed by: Parent External Record Review External record reviewed: Prior outpatient labs and Primary care record Chronic Conditions Patient?s care impacted by: Other (IBS, migraine headaches, PCOS) Discharge Plan Discharge Clinical Impression: Vasovagal near syncope Patient Disposition: Home, Self-Care Instructions: Near Syncope (ED) Additional Instructions: Be sure to drink plenty of fluids over the next several days. Try to avoid alcohol and marijuana if possible. Return to the ER with any new or worsening symptoms including: Worsening headaches or vision changes, fevers greater than 100?, inability to tolerate food or drink, chest pain or difficulty breathing, any new symptom that concerns you. Call 911 with any medical emergency. Prescriptions: No Action simethicone [Gas Relief (simethicone)] 125 mg capsule 125 mg PO BID-QID PRN (Reason: abdominal distention) Qty: 20 1RF ibuprofen 400 mg tablet 400 mg PO Q6H PRN (Reason: fever or pain) Qty: 14 0RF albuterol sulfate [Ventolin HFA] 90 mcg/actuation HFA aerosol inhaler 2 puff inhalation Q6H PRN (Reason: wheezing) acetaminophen 500 mg tablet 500 mg PO Q6H PRN (Reason: pain) Fiber (dextrin) 3 gram/3.5 gram powder 3 g PO DAILY dicyclomine 10 mg capsule 10 mg PO BID menthol-zinc oxide [Calmoseptine] 0.44-20.6 % ointment 1 appl topical QID PRN (Reason: hemorrhoids) Qty: 113 2RF ondansetron 4 mg tablet,disintegrating 4 mg PO Q8H PRN (Reason: nausea and vomiting) Qty: 20 0RF bisacodyl [Dulcolax (bisacodyl)] 5 mg tablet,delayed release (DR/EC) 5 mg PO BEDTIME Qty: 20 0RF Print Language: Armenian
[2025-01-27 00:09] VITALS: BP 98/57; PULSE 64; RESP 16; TEMP 36.4; O2SAT 98
[2025-01-27 00:10] VITALS: BP 98/57; PULSE 64; RESP 16; TEMP 36.4; O2SAT 98
== END 2025-01-27 00:11 | disposition home or self-care (01) ==
PROVIDERS: Emergency Provider Emergency Medicine; PCP Internal Medicine
DX: R55 Syncope and collapse (principal); G43.909 Migraine, unspecified, not intractable, without status migrainosus; E28.2 Polycystic ovarian syndrome; K58.9 Irritable bowel syndrome, unspecified
CPT/HCPCS: 36415; 80053; 80307; 81001; 81025; 83690; 85025; 93005; 99284

== ENCOUNTER → 2025-01-26 21:14 | Outpatient (BNV) | payer OTHER, SELFPAY | PROVIDERS: Emergency Provider Emergency Medicine; PCP Internal Medicine; Visit Provider Internal Medicine | DX: R42 Dizziness and giddiness (principal) | CPT/HCPCS: 93010 ==

== ENCOUNTER 2025-02-11 14:04 | Outpatient (AMB) | payer OTHER, SELFPAY ==
--- OUTSIDE RECORDS SUMMARY | 2023-11-14 08:30 | XMS_ITS ---
Author Organization [facility] Address [address] [place] [address] [place] [address] Care Team Providers Care Automotive Assembler Name Role Phone Neel Duque MD Primary Care Provider Paul Cortes Jr [phone] REASON FOR VISIT epigastric pain Encounters Encounter Location Date Provider Diagnosis [facility] Outpatient [address] [place] [id number] 11/14/2023 Paul Lu Jr Epigastric pain R10.13 Assessments Encounter Date Diagnosis (ICD Code) Assessment Notes Treatment Notes Treatment Clinical Notes Section Notes 11/14/2023 Epigastric pain (ICD-10 - R10.13) Plan Of Treatment Next Appt Details Provider Name:Paul savage Jr, 09/10/2025 10:20:00 AM, [address] [place] [address], Suite [facility], [place], [address], Progress Notes * JOSIAH BALLB:[birth year] (24 yo F)Acc No.[id number]:11/14/2023 EGD/MAC Patient: Vick BERGERON IFEOMA Provider: Chavez Lu MD :2000 A ge:23 Y S ex:Female Date:11/14/2023 Address:[address] [place] [address] [place] Pcp:Neel Duque MD Subjective: * Chief Complaints: [...] 0 11/14/2023 Generated for Shalini nunez/Amber/Kerryitting on: 0 02/11/2025 03:24 PM EDT
[2025-02-11 14:07] VITALS: BP 108/62; PULSE 71; O2SAT 98; BMI 21.6
--- NOTE | 2025-02-11 14:07 | MHC.PC.OV ---
Vital Signs 02/11/25 14:07 Height 5 ft 2 in Weight 118 lb BMI 21.6 BP 108/62 Blood Pressure Location Lt brachial Position Sitting Pulse 71 Pulse Source Pulse Oximeter Pulse Oximetry (%) 98 Oxygen Delivery Method Room Air Intake Visit Reasons: [facility] 01/26 dizzy after smoking marijuana Allergies Seasonal Allergies Allergy (Intermediate, Verified 02/11/25 14:07) Itchy Eyes Tobacco use date assessed: 11/27/24 Dental Screening Dental Screen Date: 11/27/24 [facility] Medical History Diarrhea Acute gastroenteritis External hemorrhoids with complication Anxiety and depression Cough Cough due to LYNN inhibitor Seasonal allergies Low back pain Migraine with aura Asthma Surgical History History of salpingectomy H/O colonoscopy Family History Paternal Grandmother Breast CA Mother Crohn disease Father Migraine Brother Bipolar 1 disorder Maternal Grandmother Heart disease Maternal Aunt Colon cancer Other Mental health disorder Social History Housing: Apartment Alcohol intake: never Patient Tobacco Use Status: Never used Tobacco Tobacco use type: Cigarette Years Smoked: marijuana e-Cigarette/Vaping Use: Never Used Second Hand Smoke Exposure: No Substance Use Type: Marijuana service: No Current occupational status: employed 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 1. Little interest or pleasure in doing things: not at all 2. Feeling down, depressed, or hopeless: not at all 3. Trouble falling or staying asleep, or sleeping too much: more than half the days 4. Feeling tired or having little energy: more than half the days 5. Poor appetite or overeating: more than half the days 6. Feeling bad about yourself - or that you are a failure or have let yourself or your family down: not at all 7. Trouble concentrating on things, such as reading the newspaper or watching television: not at all 8. Moving or speaking so slowly that other people could have noticed. Or the opposite - being so fidgety or restless that you have been moving around a lot more than usual: not at all 9. Thoughts that you would be better off or of hurting yourself in some way: not at all Total score: 6 Depression Screening Interpretation: Positive Depression Screening Done: Yes Source: Developed by Drs. Reji Yee, Jennifer Majano, Keanu Arce and colleagues, with an educational girma from [employer]. Thrive Questionnaire Date Thrive assessed: 11/08/24 I am a: Patient What is your living situation today?: I have a steady place to live Within the past 12 months, did the food you bought not last and you didn't have the money to get more?: Never true Within the past 12 months, did you worry whether your food would run out before you got money to buy more?: Never true Do you have trouble paying for medicines?: No Do you have trouble getting transportation to medical appointments?: No Do you have trouble paying your heating and electricity bill?: No Do you have trouble taking care of your child, family member or friend?: No Do you have trouble with day-to-day activities such as bathing, preparing meals, shopping, managing finances, etc.?: No Are you currently unemployed and looking for a job?: No Are you interested in more education?: No Please select the resources that you would like help with: None Currently or been in a relationship where the following occur: No concerns reported THRIVE Score: 0 AUDIT C Alcohol Use Questionnaire (AUDIT-C) 1. How often do you have a drink containing alcohol?: Never 3. How often do you have six or more drinks on one occasion?: Never Total Score: 0 ELVA-7 AMB Questionnaire ELVA-7 Date ELVA - 7 assessed: 11/27/24 Source: Developed by Drs. Reji Yee, Keanu Hines and colleagues, with an educational girma from [employer]. Physical exam (Primary Care) Vital Signs: Last Vital Signs Pulse 71 02/11/25 14:07 BP 108/62 02/11/25 14:07 Pulse Ox 98 02/11/25 14:07 Oxygen Delivery Method Room Air 02/11/25 14:07 BMI result Body Mass Index 21.6 Tobacco/Smoking Status: Tobacco use Status Tobacco use date assessed 11/27/24 02/11/25 14:08 Patient Tobacco Use Status Never used Tobacco 02/11/25 14:08 Tobacco use type Cigarette 02/11/25 14:08 e-Cigarette/Vaping Use Never Used 02/11/25 14:08 PHQ-9: PHQ-9 Score PHQ-9: Total score 6 02/11/25 14:16 Depression Screening Interpretation: Positive Thrive Assessment: Date of Thrive Assessment Date Thrive assessed 11/08/24 02/11/25 14:08 Currently or been in a relationship where the following occur: No concerns reported Const General: alert; No acute distress Eyes Conjunctivae: conjunctivae normal Resp Auscultation: clear to auscultation bilaterally Cardio Rate: regular rate Rhythm: regular rhythm GI Inspection: Yes normal to inspection Extrem General: Yes normal to inspection and No edema Coding Level of Care Code Est Pt Level 4 (05025) Diagnoses Vasovagal episode R55 Marijuana smoker F12.90 Syncope R55 Assessment & Plan Assessment & Plan (1) Vasovagal episode: Code(s): R55 - Syncope and collapse Category: Medical Plan: Keep well hydrated, refrain from smoking (2) Marijuana smoker: Code(s): F12.90 - Cannabis use, unspecified, uncomplicated Category: Medical Plan: Refrain from smoking (3) Syncope: Code(s): R55 - Syncope and collapse Category: Medical Plan Seizure is entertained as there is family history of seizures. Will do a referral to Neurology as well as EEG requested. History of Present Illness The patient is a 24-year-old female presenting with a hip problem and a history of dizziness. She has a history of migraine, asthma, generalized anxiety disorder, and polycystic ovary syndrome (PCOS). In January, the patient experienced dizziness after smoking marijuana, which led to an emergency room visit where she was diagnosed with vasovagal syncope. She reported a sudden onset of dizziness and tingling, which was not attributed to marijuana or alcohol use, as she was well-hydrated at the time. The patient has a family history of seizures, including her father and cousins, which raises concerns about potential neurological issues. She experiences episodes of body shaking, sweating, and heart racing, with heart rates reaching 178 beats per minute, particularly while driving. Her blood work showed no microcytic anemia, normal platelet count, normal electrolytes, and normal liver function, with adequate iron levels. A urine test was negative, and an x-ray for atrial fibrillation in November was also negative. Health Maintenance Social History - Substance use: Reports occasional alcohol consumption and marijuana use, with a recent episode leading to dizziness. - Family history: Positive for seizures in father and cousins. Review of Systems - Neurological: Reports dizziness, tingling, body shaking, sweating, heart racing at 178 bpm, hot and cold flashes, and vision changes while driving. - Gastrointestinal: Reports diarrhea during menstruation and constipation otherwise. - Respiratory: Denies cough, reports using asthma inhaler this week. Physical Exam - Neurological: Noted eye twitching during examination, no other abnormalities reported. Results - Labs: No microcytic anemia, normal platelet count, normal electrolytes, normal liver function, adequate iron levels. - Urine test: Negative. - Imaging: X-ray for atrial fibrillation in November was negative. Plan The patient is advised to refrain from smoking marijuana and to maintain adequate hydration to prevent further episodes of dizziness and vasovagal syncope. A referral to neurology is planned to evaluate the potential for seizures, given the family history and the patient's symptoms. An EEG and a CAT scan of the brain are ordered to further investigate the neurological symptoms. The patient is instructed not to drive until the evaluation is complete, due to the risk of passing out while driving. Additional blood work is planned to rule out autoimmune disorders, with tests including sedimentation rate and C-reactive protein. Patient was informed and verbally consented to the use of an ambient scribe for clinic note documentation during this visit. Discussion Notes I discussed with the patient the diagnosis of vasovagal syncope and the potential contributing factors, including marijuana use and dehydration. We reviewed the importance of avoiding marijuana and staying hydrated. I explained the need for neurological evaluation due to the family history of seizures and the patient's symptoms, and the plan to conduct an EEG and CAT scan. The patient was informed about the driving restrictions until the evaluation is complete, emphasizing safety concerns. We also discussed the additional blood work to rule out autoimmune disorders. Patient Instructions - Avoid smoking marijuana and stay well-hydrated. - Do not drive until further notice due to the risk of passing out. - Follow up with neurology for further evaluation. - Complete the scheduled EEG and CAT scan. - Undergo additional blood work as instructed. Orders: Orders EEG ambulatory Today R55 - Syncope and collapse CT head/brain wo IV con Today R55 - Syncope and collapse Erythrocyte Sedimentation Rate Today R55 - Syncope and collapse [place]UL[place] Reflex Titer and Pattern Today R55 - Syncope and collapse, R79.89 - Other specified abnormal findings of blood chemistry C Reactive Protein Today R55 - Syncope and collapse Referrals Neurology Referral R55 - Syncope and collapse
--- OUTSIDE RECORDS SUMMARY | 2025-02-11 15:24 | XMS_ITS | Encounter Summary ---
Author Organization [facility] Address [address] [place] [phone] Phone Care Team Providers Care Supervisor Roving Name Role Phone Cathie Benavidez MD Primary Care Provider [phone] Encounter Details Date Type Department Care Team (Late st Contact Info) Description 02/09/2017 Documentation [facility] [address] [place] [address] Family Medicine, Physician [address], [place] [id number] Social History Tobacco Use Types Packs/Day Years [...] filedocumented in this encounter Care Teams Supervisor Roving Relationship Specialty Start Date End Date Cathie Benavidez MD [address] [place] [id number] PCP - General Pediatrics 08/14/19 10/11/22 documented as of this encounter
== END 2025-02-11 15:08 | disposition home or self-care (01) ==
LOC: HO.HMCH 14:04
PROVIDERS: PCP Internal Medicine; Visit Provider Internal Medicine
DX: R55 Syncope and collapse (principal); F12.90 Cannabis use, unspecified, uncomplicated

== ENCOUNTER → 2025-02-11 14:04 | Outpatient (BNVA) | payer OTHER, SELFPAY | PROVIDERS: PCP Internal Medicine; Visit Provider Internal Medicine | DX: R55 Syncope and collapse (principal); F12.90 Cannabis use, unspecified, uncomplicated; G43.909 Migraine, unspecified, not intractable, without status migrainosus; J45.909 Unspecified asthma, uncomplicated; F41.1 Generalized anxiety disorder; E28.2 Polycystic ovarian syndrome; R56.9 Unspecified convulsions; R79.89 Other specified abnormal findings of blood chemistry | CPT/HCPCS: 99212 ==

== ENCOUNTER 2025-02-18 13:38 | Outpatient (REF) | payer OTHER, SELFPAY ==
--- OUTSIDE RECORDS SUMMARY | 2023-11-14 08:30 | XMS_ITS ---
Author Organization [facility] Address [address] [place] [address] [place] [address] Care Team Providers Care Dietetics Teacher Name Role Phone Neel Duque MD Primary Care Provider Paul Cortes Jr REASON FOR VISIT epigastric pain Encounters Encounter Location Date Provider Diagnosis [facility] [place] [address] [place] [id number] 11/14/2023 Paul Lu Jr Epigastric pain R10.13 Assessments Encounter Date Diagnosis (ICD Code) Assessment Notes Treatment Notes Treatment Clinical Notes Section Notes 11/14/2023 Epigastric pain (ICD-10 - R10.13) Plan Of Treatment Next Appt Details Provider Name:Paul savage Jr, 09/10/2025 10:20:00 AM, [address] [place] [address], Suite [facility], [place], [address], Progress Notes * JOSIAH BALLB:[birth year] (24 yo F)Acc No.[id number]:11/14/2023 EGD/MAC Patient: Vick BERGERON IFEOMA Provider: Chavez Lu MD :2000 A ge:23 Y S ex:Female Date:11/14/2023 Address:[address] [place] [address] [place] Pcp:Neel Duque MD Subjective: * Chief Complaints: [...] 11/14/2023 Generated for Shalini nunez/Amber/Kerryitting on: 0 02/18/2025 02:38 PM EDT
--- OUTSIDE RECORDS SUMMARY | 2025-02-18 14:38 | XMS_ITS | Encounter Summary ---
Author Organization [facility] Address [address] [place] [address] Phone Care Team Providers Care Financial Services Technician Name Role Phone Cathie Benavidez MD Primary Care Provider [phone] Encounter Details Date Type Department Care Team (Late st Contact Info) Description 02/09/2017 Documentation [facility] [place] [address] [place] [address] Family Medicine, Physician [address] [place] [id number] Social History Tobacco Use Types Packs/Day Years [...] on filedocumented in this encounter Care Teams Financial Services Technician Relationship Specialty Start Date End Date Cathie Benavidez MD [address] [place] [address] PCP - General Pediatrics 08/14/19 10/11/22 documented as of this encounter
--- OUTSIDE RECORDS SUMMARY | 2025-02-18 14:38 | XMS_ITS | Encounter Summary ---
Author Organization [facility] Address [address] [place], [place] [id number] Phone Care Team Providers Care Alarm Operator Name Role Phone Cathie Benavidez MD Primary Care Provider [phone] Encounter Details Date Type Department Care Team (Late st Contact Info) Description 12/09/2015 Documentation [facility] Family Medicine [address] [place] [address] Family Medicine, Physician [address] [place], [place] [phone] Social History Tobacco Use Types Packs/Day Years [...] on filedocumented in this encounter Care Teams Alarm Operator Relationship Specialty Start Date End Date Cathie Benavidez MD [address] [place] [address] PCP - General Pediatrics 08/14/19 10/11/22 documented as of this encounter
--- OUTSIDE RECORDS SUMMARY | 2025-02-18 14:38 | XMS_ITS | Encounter Summary ---
Author Organization [facility] Address [address] [place], [place] [phone] Phone Care Team Providers Care Research Anthropologist Name Role Phone Cathie Benavidez MD Primary Care Provider [phone] Encounter Details Date Type Department Care Team (Late st Contact Info) Description 12/09/2015 Documentation [facility] [place] [address] [place] [address] Family Medicine, Physician [address] [place] [phone] Social History Tobacco Use Types Packs/Day Years [...] on filedocumented in this encounter Care Teams Research Anthropologist Relationship Specialty Start Date End Date Cathie Benavidez MD [address] [place] [address] PCP - General Pediatrics 08/14/19 10/11/22 documented as of this encounter
--- OUTSIDE RECORDS SUMMARY | 2025-02-18 14:38 | XMS_ITS | Clinical Summary ---
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 Oneal not yet been evaluated by RN CORRECTIONAL. First episode 07/2019: - 08/14/2019: In ED CT abd/pelvis with IV contrast normal. Chemistries icnluding lipase, cbc normal. HCG neg. - 08/17/2019 Diagnosed in the office with PID and treated. G/C negative. Transvaginal ultrasound was normal. D iagnosed with constipation, treated with miralax. - 08/20/2019 Sent back to ED by RN CORRECTIONAL, second transvaginal U/S was done. - 08/29/2019: [...] metronidazole. She did have an ultrasound at [facility] on 04/29 and has not heard results - 05/04/2020: Office visit here in extreme pain, sent Back to ED where she left without completing her visit. 07/23/2020: Labs and KUB normal. GI apt upcoming 07/30/2020 07/30/2020: GI (Dr Trejo) planning for endoscpoy Third episode: 11/17/2020 (age 20yr): [facility] ED for pelvic pain, suspected pelvic congestive syndrome. U/S normal except prominent pelvic vasculature. Suggest RN CORRECTIONAL referral. 11/26/2020 (age 20yr): : admitted to [facility] 11/18/2020 - 11/12/2020 for 5 days of severe abdominal pain. Initiated treatment for presumed PID, no other diagnosis made, treated wit abx. GC/chlam neg. Missed RN CORRECTIONAL appointment. Assessment & Plan (12/03/2020 9:13 AM EDT): 12/03/2020 (age 20yr): vag probe from yesterday positive for yeast. With pt on antibiotics for PID and having symptoms of vaginitis, I recommend treatment. I will call in [facility] for her. 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 Oneal not yet been evaluated by RN CORRECTIONAL. Feeling better today after recent admission to [facility] where she was treated for PID. - Recommend reschedule with RN CORRECTIONAL, be persistent about getting appt and confirming appt time. - Recommend adult primary care as Petr is starting to have adult medical issues and may be needing more outpatient coding specialist care going forward. Assessment & Plan [...] nd well Other Family history of Sudden /IA under 55, Family history of Asthma, No [...] 74 12/01/2020 11:37 AM EDT Temperature 36.4 C (97.5 F) 12/01/2020 11:37 AM EDT Respiratory Rate - - Oxygen [...] Trum enba SCDM 2-dose series) 07/17/2020 01/15/2020 COVID-19 Vaccine (2023-2 5 season) 2024 01/05/2021, 12/01/2020 Influenza Vaccines (#1) 2025 03/27/20 19, 03/07/2018, 03/28/2017, Additional history exists DTaP,Tdap,and Td Vaccines (8 - Td or [...] 04/30/2017, 09/2003, 09/28/2000 Procedures * Due to [place] state law, this organization might not be sharing sensitive test results. Procedure Name Priority Date/Time Associated Diagnosis Comments CHLAMYDIA AND GONORRHEA, AMPLIFIED Routine 05/05/2020 4:29 PM EST Screening examination for bacterial and spirochetal disease from Last 3 Months or Most Recently Relevant to Health Maintenance Results * Due to [place] state law, this organization might not be sharing sensitive test results. * Chlamydia and Gonorrhoea, Amplified (05/05/2020 4:29 PM EST) Chlamydia Trachomatis, DNA Probe NOT DETECTED (NEG) [facility] Comment:Reference range: NOT DETECTED URINE GC AMP PROBE NOT DETECTED (NEG) [facility] Comment: Reference range: NOT DETECTED (NOTE) The analytical performance characteristics of this assay, when used to test SurePath(TM) specimens have been determined by [facility]. The modifications have not been cleared or approved by the FDA. This assay has been validated pursuant to the CLIA regulations and is used for clinical purposes. = For additional information, please refer to https://education.[employer]/faq/ZLZ504 (This link is being provided for information/ educational purposes only.) = Test Performed by: [facility], [address] [place] [address]. [id number]. Unit Secy: Gil Newberry MD. Testing performed or reported by [facility], a Service of [facility], [facility] [place] [address] Baljit Faith MD, [employer] Urine 05/05/2020 4:29 PM EST 05/05/2020 7:26 PM EST Cathie Benavidez MD LAB MICROBIOLOGY - GENERAL OR DERABLES Final Result [facility] from Last 3 Months or Most Recently Relevant to Health Maintenance Insurance [facility] NON PCC
--- OUTSIDE RECORDS SUMMARY | 2025-02-18 14:38 | XMS_ITS | Encounter Summary ---
Author Organization [facility] Address [address] [place] [address] Phone Care Team Providers Care Apparel Embroidery Digitizer Name Role Phone Cathie Benavidez MD Primary Care Provider [phone] Encounter Details Date Type Department Care Team (Late st Contact Info) Description 02/09/2017 Documentation [facility] Family Medicine [address] [place] [address] Family Medicine, Physician [address] [place], [place] [phone] Social History Tobacco Use Types Packs/Day Years [...] on filedocumented in this encounter Care Teams Apparel Embroidery Digitizer Relationship Specialty Start Date End Date Cathie Benavidez MD [address] [place] [address] PCP - General Pediatrics 08/14/19 10/11/22 documented as of this encounter
--- OUTSIDE RECORDS SUMMARY | 2025-02-18 14:38 | XMS_ITS | Encounter Summary ---
Author Organization [facility] Address [address] [place] [address] Phone Care Team Providers Care Tow Mate Name Role Phone Cathie Benavidez MD Primary Care Provider [phone] Encounter Details Date Type Department Care Team (Late st Contact Info) Description 02/09/2017 Conversion Encounter [facility] [place] [address] [place] [address] Social History Tobacco Use Types Packs/Day Years [...] on filedocumented in this encounter Care Teams Tow Mate Relationship Specialty Start Date End Date Cathie Benavidez MD [address] [place] [address] PCP - General Pediatrics 08/14/19 10/11/22 documented as of this encounter
--- OUTSIDE RECORDS SUMMARY | 2025-02-18 14:38 | XMS_ITS | Patient Health Record ---
Author Organization [facility] Address [address] [place] [address] Care Team Providers Care Hourly Associate Name Role Phone Neel Duque MD Primary Care Provider Paul Cortes Jr Unavailable Allergies No Known Allergies Results Component Value Reference Range Notes GI PANEL Reviewed date:03/14/2024 11:09:52 AM Interpretation: Performing Lab:[facility], [address] [place] [phone] Notes/Report: Campylobacter Not Detected Not Detect. Plesiomonas [...] is performed by Multiplexed PCR, utilizing the Mangia Array. Complete Blood Count Auto Di ff Reviewed date:03/14/2024 10:11:46 AM Interpretation: Performing Lab:[facility], [address] [place] [phone] Notes/Report: White Blood Count 6.2 4.8-10.8 X10*3/uL [...] Panel Reviewed date:03/14/2024 10:10:20 AM Interpretation: Performing Lab:[facility], [address] [place] [phone] Notes/Report: Bilirubin Total 0.4 0.0-1.0 mg/dL Bilirubin Direct 0.2 0.0-0.5 mg/dL Aspartate Amino Transferase 18 5-31 U/L Alanine Aminotransferase 13 0-31 U/L Total Protein 7.5 6.5-8.0 g/dL Albumin Level 4.6 3.5-5.0 g/dL Alkaline Phosphatase 69 39-117 U/L Lipase Reviewed date:03/14/2024 10:10:12 AM Interpretation: Performing Lab:[facility], [address] [place] [phone] Notes/Report: Lipase 16 8-78 U/L TSH reflex Free T4 Reviewed date:03/14/2024 10:10:04 AM Interpretation: Performing Lab:[facility], [address] [place] [phone] Notes/Report: TSH reflex Free T4 0.54 0.32-4.0 uIU/mL Leukocytes Stool Qualitative Reviewed date:03/14/2024 11:09:45 AM Interpretation: Performing Lab:[facility], [address] [place] [phone] Notes/Report: Leukocytes Stool Qualitative NEGATIVE NEGATIVE Ova and Parasite Reviewed date:03/21/2024 09:47:12 AM Interpretation: Performing Lab:[facility], [address] [place] [phone] Notes/Report: Ova and Parasite SEE NOTE OVA AND PARASITES, CONC AND PERM SMEAR Micro Number: [id number] Test Status: Final Specimen Source: Stool Specimen Quality: Adequate CONCENTRATION 1: No ova or parasites seen TRICHROME 1: No ova or parasites seen Routine Ova and Parasite exam may not detect some parasites that occasionally cause diarrheal illness. Cryptosporidium Antigen and/or Cyclospora Isospora Exam may be ordered to detect these parasites. For additional information, please refer to https://[facility].[employer]/faq/XXK272 (This link is being provided for informational/ educational purposes only.) THIS TEST WAS PERFORMED AT: [facility] [address] [phone] RAKESH DIAL MD Reason For Referral No [...] Problem Status W/U Status Risk Notes Problem 10514449 Epigastric pain (R10.13) Active confirmed Problem 53527023 Change in bowel habits (R19.4) Active confirmed Problem 729650327 Gastroesophageal reflux disease, unspecified whether esophagitis present (K21.9) Active confirmed Vital Signs Temperature 97.1 degrees Fahrenheit 09/09/2024 Blood pressure diastolic 01 mm Hg 09/09/2024 Height 63 in 09/09/2024 Blood pressure systolic 001 mm Hg 09/09/2024 Weight 127.2 lbs 09/09/2024 BMI 22.53 kg/m2 09/09/2024 Encounters Encounter Location Date Provider Diagnosis [facility] [address] [facility] [place] [address] 03/11/2024 Paul Lu Jr Gastroesophageal reflux disease, unspecified whether esophagitis present K21.9 and Change in bowel habits R19.4 [facility] [address] [place], [place] [address] [place] [address] 09/09/2024 Paul Lu Jr Gastroesophageal reflux disease, unspecified whether esophagitis present K21.9 and Change in bowel habits R19.4 [facility] [address] [facility] [place] [address] 02/21/2024 Paul Lu Jr [facility] [address] [place] [address] 03/01/2024 Paul Lu Jr [facility] [address] [place] [address] 03/14/2024 Paul Lu Jr Assessments Encounter Date Diagnosis (ICD Code) Assessment Notes Treatment Notes Treatment Clinical Notes Section Notes 03/11/2024 Change in bowel habits (ICD-10 - [...] treatment of this today. She will continue eeyx-nlx-qvig ter simethicone. Follow-up will be in 1 [...] treatment of this today. She will continue fvtg-lrc-gnjc ter simethicone. Follow-up will be in 1 year. Plan Of Treatment Pending Test Test Name Order Date LIVER PROFILE 03/11/2024 LIPASE 03/11/2024 CBC w/o DIFF 03/11/2024 STOOL WBC 03/11/2024 OVA & PARASITES (O&P) 03/11/2024 TSH REFLEX FREE T4 03/11/2024 Future Test Test Name Order Date COLONOSCOPY 03/06/2023 UPPER GI ENDOSCOPY 10/25/2023 Next Appt Details Provider Name:Paul savage , 09/10/2025 10:20:00 AM, [address] [place] [address], [place] [address], [place], [address], Insurance Providers Payer Name Payer Address Payer Phone Subscriber Number Group Number Insured Name Patient Relationship to Insured Coverage Start Date Coverage End Date [facility] [address] [address] [place], [place] [id number] [id number] Self - patient is the [...]
--- OUTSIDE RECORDS SUMMARY | 2025-02-18 14:39 | XMS_ITS | Encounter Summary ---
Author Organization [facility] Address [address] [place], [place] [address] Phone Care Team Providers Care Set Up Person Name Role Phone Cathie Benavidez MD Primary Care Provider [phone] Encounter Details Date Type Department Care Team (Late st Contact Info) Description 08/11/2016 Documentation [facility] [place] Family Medicine [address] [place] [address] Family Medicine, Physician [address] [place], [place] [phone] Social History Tobacco Use Types Packs/Day Years [...] on filedocumented in this encounter Care Teams Set Up Person Relationship Specialty Start Date End Date Cathie Benavidez MD [address] [place] [address] PCP - General Pediatrics 08/14/19 10/11/22 documented as of this encounter
--- OUTSIDE RECORDS SUMMARY | 2025-02-18 14:39 | XMS_ITS | Encounter Summary ---
Author Organization [facility] Address [address] [place], [place] [address] Phone Care Team Providers Care Manager Of Creative Services Name Role Phone Cathie Benavidez MD Primary Care Provider [phone] Encounter Details Date Type Department Care Team (Late st Contact Info) Description 09/08/2016 Documentation [facility] [place] Family Medicine [address] [place] [address] Family Medicine, Physician [address] [place] [place], [place] [phone] Social History Tobacco Use Types Packs/Day Years [...] filedocumented in this encounter Care Teams Manager Of Creative Services Relationship Specialty Start Date End Date Cathie Benavidez MD [address] [place] [address] PCP - General Pediatrics 08/14/19 10/11/22 documented as of this encounter
--- OUTSIDE RECORDS SUMMARY | 2025-02-18 14:39 | XMS_ITS | Encounter Summary ---
Author Organization [facility] Address [address] [place], [place] [address] Phone Care Team Providers Care Dental Internship Name Role Phone Cathie Benavidez MD Primary Care Provider [phone] Encounter Details Date Type Department Care Team (Late st Contact Info) Description 06/06/2016 Documentation [facility] [place] Family Medicine [address] [place] [address] Family Medicine, Physician [address] [place], [place] [phone] Social History Tobacco Use Types Packs/Day Years [...] on filedocumented in this encounter Care Teams Dental Internship Relationship Specialty Start Date End Date Cathie Benavidez MD [address] [place] [address] PCP - General Pediatrics 08/14/19 10/11/22 documented as of this encounter
--- OUTSIDE RECORDS SUMMARY | 2025-02-18 14:39 | XMS_ITS | Encounter Summary ---
Author Organization [facility] Address [address] [place], [place] [address] Phone Care Team Providers Care Beam House Inspector Name Role Phone Cathie Benavidez MD Primary Care Provider [phone] Encounter Details Date Type Department Care Team (Late st Contact Info) Description 07/22/[address] [facility] [place] Family Medicine [address] [place] [address] Family Medicine, Physician [address] [place], [place] [phone] Social History Tobacco Use Types Packs/Day Years [...] on filedocumented in this encounter Care Teams Beam House Inspector Relationship Specialty Start Date End Date Cathie Benavidez MD [address] [place] [address] PCP - General Pediatrics 08/14/19 10/11/22 documented as of this encounter
--- OUTSIDE RECORDS SUMMARY | 2025-02-18 14:39 | XMS_ITS | Encounter Summary ---
Author Organization [facility] Address [address] [place], [place] [address] Phone Care Team Providers Care Lime Mixer Tender Name Role Phone Cathie Benavidez MD Primary Care Provider [phone] Encounter Details Date Type Department Care Team (Late st Contact Info) Description 10/03/[address] [facility] [place] Family Medicine [address] [place] [address] Family Medicine, Physician [address] [place], [place] [phone] Social History Tobacco Use Types Packs/Day Years [...] on filedocumented in this encounter Care Teams Lime Mixer Tender Relationship Specialty Start Date End Date Cathie Benavidez MD [address] [place] [address] PCP - General Pediatrics 08/14/19 10/11/22 documented as of this encounter
--- OUTSIDE RECORDS SUMMARY | 2025-02-18 14:39 | XMS_ITS | Encounter Summary ---
Author Organization [facility] Address [address] [place], [place] [address] Phone Care Team Providers Care Foreclosure Field Inspector Name Role Phone Cathie Benavidez MD Primary Care Provider [phone] Encounter Details Date Type Department Care Team (Late st Contact Info) Description 11/07/2016 Documentation [facility] [place] Family Medicine [address] [place] [address] Family Medicine, Physician [address] [place], [place] [phone] Social History Tobacco Use Types Packs/Day Years [...] on filedocumented in this encounter Care Teams Foreclosure Field Inspector Relationship Specialty Start Date End Date Cathie Benavidez MD [address] [place] [address] PCP - General Pediatrics 08/14/19 10/11/22 documented as of this encounter
--- OUTSIDE RECORDS SUMMARY | 2025-02-18 14:39 | XMS_ITS | Encounter Summary ---
Author Organization [facility] Address [address] [place], [place] [address] Phone Care Team Providers Care Doctor Of Naprapathic Medicine Name Role Phone Cathie Benavidez MD Primary Care Provider [phone] Encounter Details Date Type Department Care Team (Late st Contact Info) Description 11/07/2016 Documentation [facility] [place] Family Medicine [address] [place] [address] Family Medicine, Physician [address] [place], [place] [phone] Social History Tobacco Use Types Packs/Day Years [...] on filedocumented in this encounter Care Teams Doctor Of Naprapathic Medicine Relationship Specialty Start Date End Date Cathie Benavidez MD [address] [place] [address] PCP - General Pediatrics 08/14/19 10/11/22 documented as of this encounter
--- OUTSIDE RECORDS SUMMARY | 2025-02-18 14:39 | XMS_ITS | Encounter Summary ---
Author Organization [facility] Address [address] [place], [place] [address] Phone Care Team Providers Care Nike Athlete Name Role Phone Cathie Benavidez MD Primary Care Provider [phone] Encounter Details Date Type Department Care Team (Late st Contact Info) Description 09/08/2016 Documentation [facility] Family Medicine [address] [place] [address] Family Medicine, Physician [address] [place], [place] [phone] Social History Tobacco Use Types Packs/Day Years [...] on filedocumented in this encounter Care Teams Nike Athlete Relationship Specialty Start Date End Date Cathie Benavidez MD [address] [place] [address] PCP - General Pediatrics 08/14/19 10/11/22 documented as of this encounter
[2025-02-21 10:48] LABS: Anti Nuclear Antibody Pattern Nuclear, Speckled; Anti Nuclear Antibody Screen POSITIVE (NEGATIVE); Anti Nuclear Antibody Titer 1:80 titer
== END 2025-02-18 13:39 | disposition home or self-care (01) ==
LOC: HO.LAB 13:38
PROVIDERS: PCP Internal Medicine; Visit Provider Internal Medicine
DX: R55 Syncope and collapse (principal); R42 Dizziness and giddiness; R79.89 Other specified abnormal findings of blood chemistry; Z01.84 Encounter for antibody response examination
CPT/HCPCS: 36415; 85652; 86038; 86039; 86140

== ENCOUNTER 2025-02-18 13:57 | Outpatient (AMB) | payer OTHER, SELFPAY ==
[2025-02-18 13:59] VITALS: BP 122/83; PULSE 66
--- NOTE | 2025-02-18 13:59 | A.OFFVIS_ITS ---
Vital Signs 02/18/25 13:59 02/18/25 14:22 Height 5 ft 2 in BP 122/83 123/81 Position Sitting Standing Pulse 66 74 Intake Visit Reasons: Syncope & collapse Allergies Seasonal Allergies Allergy (Intermediate, Verified 02/18/25 14:07) Itchy Eyes Medication List - Last Reconciled 02/18/25 by Candi Gottlieb CNP acetaminophen 500 mg PO Q6H PRN albuterol sulfate 90 mcg/actuation (Ventolin HFA) 2 puffs inhalation Q6H PRN bisacodyl (Dulcolax (bisacodyl)) 5 mg PO BEDTIME dextrin (Fiber (dextrin)) 3 grams PO DAILY dicyclomine 10 mg PO BID ibuprofen 400 mg PO Q6H PRN menthol-zinc oxide 0.44-20.6 % (Calmoseptine) 1 appl topical QID PRN ondansetron 4 mg PO Q8H PRN simethicone (Gas Relief (simethicone)) 125 mg PO BID-QID PRN HPI Comments Details: 24-year-old woman with asthma, anxiety, and migraines who was seen at [facility] on 01/26/2025 for near syncopal episode. The episode started with some numbness and tingling in her hands and feet, and she felt hot all over. She felt lightheaded and dizzy, and her vision ?went black.? She was off balance, but did not fall. No loss of consciousness. She had used some alcohol and marijuana prior to the episode and was outside for the [facility] festival. No episodes since. She experiences similar episodes every few months of dizziness and loss of vision, with associated symptoms of palpitation, hot and cold flashes, and nausea. The symptoms can last minutes up to half hour. The first episode she recalls happened in 03/2020 while taking shower. She felt hotter than usual and vision went black. She woke up on the floor with family around her. She has family history of seizures in her mother and father. She had an appointment with her PCP who ordered labs and CT scan. She had labs done before appointment and did not have appointment for CT scan yet. [facility] Medical History Diarrhea Acute gastroenteritis External hemorrhoids with complication Anxiety and depression Cough Cough due to LYNN inhibitor Seasonal allergies Low back pain Migraine with aura Asthma Surgical History History of salpingectomy H/O colonoscopy Family History (Updated 02/18/25 @ 14:10 by Candi Gottlieb CNP) Paternal Grandmother Breast CA Mother Crohn disease Seizure Father Migraine Seizure Brother Bipolar 1 disorder Maternal Grandmother Heart disease Maternal Aunt Colon cancer Other Mental health disorder Social History Housing: Apartment Alcohol intake: never Patient Tobacco Use Status: Never used Tobacco Tobacco use type: Cigarette Years Smoked: marijuana e-Cigarette/Vaping Use: Never Used Second Hand Smoke Exposure: No Substance Use Type: Marijuana service: No Current occupational status: employed 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 Current occupational exposures/hazards: No Sexual orientation: Straight/Heterosexual Gender identity: Female Cognitive needs: No Hearing needs: No Vision needs: No Female Reproductive History Menstrual Age of Menarche: 12 Review of Systems Const Denies chills, Denies daytime sleepiness, Denies difficulty sleeping, Reports fatigue, Denies fever(s), Denies frequent falls, Reports headache(s), Denies increased appetite, Denies poor appetite, Denies snoring, Denies weakness, Denies weight gain and Denies weight loss Eyes Denies blurry vision, Denies diplopia and Denies loss of vision ENT Reports Normal hearing present, Denies vertigo, Reports dizziness, Denies dry mouth, Denies otalgia, Reports headache(s), Denies hearing loss, Denies epistaxis, Denies nasal congestion, Denies neck pain, Denies tinnitus, Reports sinus pain and Denies sore throat Card Denies chest pain at rest, Denies chest pain with activity, Denies syncope, Denies leg edema, Denies palpitations, Denies dyspnea and Denies dyspnea on exertion Resp Denies cough, Denies dyspnea, Denies dyspnea on exertion and Denies snoring GI Reports abdominal pain, Denies constipation, Denies heartburn, Denies diarrhea, Reports nausea and Denies vomiting Denies urinary frequency, Denies nipple discharge, Denies urinary incontinence and Denies urinary urgency Musc Denies abnormal gait, Reports back pain, Denies myalgias, Denies arthralgias, Denies neck pain, Denies numbness, Denies stiffness and Denies tingling Skin/Breast Denies breast mass, Denies nipple discharge and Denies rash Neuro Reports Normal hearing present, Denies Abnormal speech present, Denies abnormal gait, Denies vertigo, Reports dizziness, Denies syncope, Denies frequent falls, Reports headache(s), Denies lack of coordination, Denies loss of vision, Denies memory loss, Denies numbness, Denies Other visual disturbances, Denies restless legs, Denies seizure-like activity, Denies tingling, Denies paresthesias, Denies tremor(s) and Denies weakness Psych Reports anxiety, Reports depression, Denies memory loss, Denies visual hallucinations and Denies hallucinations Endo Denies cold intolerance, Reports fatigue, Denies heat intolerance, Denies polydipsia, Denies polyuria and Denies palpitations Chintan/Lymph Reports easy bleeding and Reports easy bruising Physical Exam Const Other: General Appearance:? normal, in no acute distress. Head:? normocephalic, atraumatic. Eyes:? sclera non-icteric, conjunctiva clear. Ears:? auditory canal clear, tympanic membrane intact, clear. Nose:? no lesions. Oral Cavity:? gums normal, mucosa moist, no lesions. Throat:? clear. Neck/Thyroid:? no cervical lymphadenopathy, thyroid normal, neck supple, full range of motion, no carotid bruit. Skin:? no rashes, no significant birthmarks. Heart:? S1, S2 normal, no murmurs. Lungs:? clear anteriorly and posteriorly. Chest:? no gross rib deformity, clear to auscultation. Back:? normal exam of spine. Extremities:? no edema. Peripheral Pulses:? normal. Psych:? alert, oriented, cognitive function intact, cooperative with exam. Neuro Other: Abnormal Neurological Findings:?none.? Mental Status: alert and oriented X 3. Normal attention, orientation, memory, and affect. Cranial Nerves: Pupils are equal, round, and reactive to light. External ocular muscles are intact. Visual nguyen are full, no ptosis. Face is symmetrical, no facial weakness or droop. Facial sensations are normal. Tongue protrudes in midline. Palate elevates symmetrically. Shoulder shrugging is normal Motor Examination: Normal muscle tone, bulk and strength. No atrophy or fasciculations. No drift of the extended upper extremities. DTR 2+. Plantars are flexor. Straight Leg Raisin degrees. Sensory Exam: Normal light touch, temperature, pinprick, vibration, and joint- position sensations. Rhomberg sign is absent. Coordination: No ataxia. No titubation. Weyvrl-ji-opjz, jztt-qbrg-ujnl test, and rapid alternating movements were normal. Gait Exam: Within normal limits. Cerebellar Signs: Xqkqai-eh-idgr and maof-ci-ndkg is normal. No dysdiadochokinesia. Extrapyramidal System: No tremor, rigidity with normal facial expressions. No bradykinesia. No bradyphrenia. Normal arm swing and posture. No propulsion or retropulsion. Speech: Normal. No dysphasia or dysarthria. Cranial nerves: Yes Normal hearing present Speech: No Abnormal speech present Results Reviewed Results Reviewed: Laboratory Tests 01/26/25 01/26/25 22:00 22:05 WBC 8.0 RBC 4.58 Hgb 13.1 Hct 36.0 L MCV 78.6 L MCH 28.6 MCHC 36.4 H RDW 12.9 Plt Count 235 MPV 11.0 Immature Gran % (Auto) 0.3 Neut % (Auto) 68.6 Lymph % (Auto) 24.3 [place] % (Auto) 5.5 Eos % (Auto) 0.9 Baso % (Auto) 0.4 Lymph # (Auto) 1.9 [place] # (Auto) 0.4 Eos # (Auto) 0.1 Baso # (Auto) 0.0 Abs Immat Gran (auto) 0.02 Absolute Neuts (auto) 5.5 Absolute Nucleated RBC 0.000 Nucleated RBC % (auto) 0.0 Sodium 139 Potassium 4.3 Chloride 111 H Carbon Dioxide 22 Anion Gap 10 L BUN 11 Creatinine 0.70 Estimated GFR > 60 Random Glucose 95 Calcium 8.4 D Total Bilirubin 0.4 AST 30 ALT 15 Alkaline Phosphatase 56 Total Protein 7.1 Albumin 4.3 Lipase 13 U Marijuana (THC) Screen POSITIVE H [address] [address] Electrocardiograph Report Signed Patient: Petr Connolly MR#: [id number] : 2000 Acct:[id number] Age/Sex: 24 / F ADM Date: 01/26/25 Loc: HO.ED Attending Dr: Ordering Physician: Jessica Carrasquillo DO Date of Service: 01/26/25 Procedure(s): ECG 12 lead EKG Accession Number(s): [id number] cc: Jessica Carrasquillo DO~ Test Reason : DIZZINESS Blood Pressure : */* mmHG Vent. Rate : 80 BPM Atrial Rate : 80 BPM P-R Int : 122 ms QRS Dur : 66 ms QT Int : 370 ms P-R-T Axes : 72 35 24 degrees QTcB Int : 426 ms Normal sinus rhythm Normal ECG When compared with ECG of 05-Nov-2024 22:40, No significant change was found Referred By: Generic ED Physician Electronically Signed By: EVELYN ROGERS Assessment & Plan Assessment & Plan (1) Syncope: Code(s): R55 - Syncope and collapse Category: Medical Qualifiers: Syncope type: unspecified Qualified Code(s): R55 - Syncope and collapse Plan: Lab and EKG results from ER reviewed. CT scan ordered by PCP, not yet scheduled. EEG and holter monitor ordered r/o arrhythmias. (2) Dizziness: Code(s): R42 - Dizziness and giddiness Category: Medical Plan Exam, findings, and plan reviewed with Dr. Pereira. Orders: Orders ECG holter monitor 48 hour Today R55 - Syncope and collapse EEG electroencephalogram Today R55 - Syncope and collapse Coding Level of Care Code New Pt Level 4 (11547) Diagnoses Syncope, unspecified syncope type R55 Syncope type: unspecified Dizziness R42
[2025-02-18 14:22] VITALS: BP 123/81; PULSE 74
== END 2025-02-18 14:52 | disposition home or self-care (01) ==
LOC: HO.HSM 13:58
PROVIDERS: PCP Internal Medicine; Visit Provider Registered Nurse
DX: R55 Syncope and collapse (principal); R42 Dizziness and giddiness
CPT/HCPCS: 99204

== ENCOUNTER → 2025-02-25 09:06 | Outpatient (REF) | payer OTHER, SELFPAY ==
--- OUTSIDE RECORDS SUMMARY | 2023-11-14 08:30 | XMS_ITS ---
Author Organization [facility] Address [address] [place] [address] [place] [address] Care Team Providers Care Warehouseman Name Role Phone Neel Duque MD Primary Care Provider Paul Cortes Jr REASON FOR VISIT epigastric pain Encounters Encounter Location Date Provider Diagnosis [facility] Out[place] [address] [place] [id number] 11/14/2023 Paul Lu Jr Epigastric pain R10.13 Assessments Encounter Date Diagnosis (ICD Code) Assessment Notes Treatment Notes Treatment Clinical Notes Section Notes 11/14/2023 Epigastric pain (ICD-10 - R10.13) Plan Of Treatment Next Appt Details Provider Name:Paul savage Jr, 09/10/2025 10:20:00 AM, [address] [place] [address], Suite [facility], [place], [address], Progress Notes * JOSIAH BALLB:[birth year] (24 yo F)Acc No.[id number]:11/14/2023 EGD/MAC Patient: Vick BERGERON IFEOMA Provider: Chavez Lu MD :2000 A ge:23 Y S ex:Female Date:11/14/2023 Address:[address] [place] [address] [place] Pcp:Neel Duque MD Subjective: * Chief Complaints: [...] 11/14/2023 Generated for Shalini nunez/Amber/Kerryitting on: 0 02/25/2025 09:56 AM EDT
--- NOTE | 2025-02-25 09:08 | HM_ITS ---
Conclusion: 1. Patient was monitored for total period of 2 days 2. Baseline was normal sinus rhythm with average heart rate of 80 beats per minute 3. No significant pauses noted 4. Rare PACs noted without any sustained tachyarrhythmias 5. Patient marked the counter 6 times with symptoms of irregular heartbeat, heart racing, heart pounding, anxiety correlating with sinus rhythm MTDD
--- OUTSIDE RECORDS SUMMARY | 2025-02-25 09:57 | XMS_ITS | Encounter Summary ---
Author Organization [facility] Address [address] [place], [place] [address] Phone Care Team Providers Care Plant Security Guard Name Role Phone Cathie Benavidez MD Primary Care Provider [phone] Encounter Details Date Type Department Care Team (Late st Contact Info) Description 12/09/2015 Documentation [facility] [place] Medicine [address] [place] [address] Family Medicine, Physician [address] [place], [place] [phone] Social History Tobacco Use Types Packs/Day Years [...] filedocumented in this encounter Care Teams Plant Security Guard Relationship Specialty Start Date End Date Cathie Benavidez MD [address] [place] [address] PCP - General Pediatrics 08/14/19 10/11/22 documented as of this encounter
--- OUTSIDE RECORDS SUMMARY | 2025-02-25 09:57 | XMS_ITS | Encounter Summary ---
Author Organization [facility] Address [address] [place], [place] [address] Phone Care Team Providers Care Zookeeper Name Role Phone Cathie Benavidez MD Primary Care Provider [phone] Encounter Details Date Type Department Care Team (Late st Contact Info) Description 10/03/2016 Documentation [facility] [place] Medicine [address] [place] [address] Family Medicine, Physician [address] [place], [place] [phone] Social History Tobacco Use Types Packs/Day Years [...] on filedocumented in this encounter Care Teams Zookeeper Relationship Specialty Start Date End Date Cathie Benaviedz MD 150 [place] [address] PCP - General Pediatrics 08/14/19 10/11/22 documented as of this encounter
--- OUTSIDE RECORDS SUMMARY | 2025-02-25 09:57 | XMS_ITS | Patient Health Record ---
Author Organization [facility] Address [address] [place] [address] Care Team Providers Care Chief Lending Officer Name Role Phone Neel Duque MD Primary Care Provider Paul Cortes Jr Unavailable Allergies No Known Allergies Results Component Value Reference Range Notes GI PANEL Reviewed date:03/14/2024 11:09:52 AM Interpretation: Performing Lab:[facility], [address] [place] [phone] Notes/Report: Campylobacter Not Detected Not Detect. Plesiomonas [...] is performed by Multiplexed PCR, utilizing the [place] Array. Complete Blood Count Auto Di ff Reviewed date:03/14/2024 10:11:46 AM Interpretation: Performing Lab:[facility], [address] [place] [phone] Notes/Report: White Blood Count 6.2 4.8-10.8 X10*3/uL [...] Panel Reviewed date:03/14/2024 10:10:20 AM Interpretation: Performing Lab:[facility], [address] [place] [phone] Notes/Report: Bilirubin Total 0.4 0.0-1.0 mg/dL Bilirubin Direct 0.2 0.0-0.5 mg/dL Aspartate Amino Transferase 18 5-31 U/L Alanine Aminotransferase 13 0-31 U/L Total Protein 7.5 6.5-8.0 g/dL Albumin Level 4.6 3.5-5.0 g/dL Alkaline Phosphatase 69 39-117 U/L Lipase Reviewed date:03/14/2024 10:10:12 AM Interpretation: Performing Lab:[facility], [address] [place] [phone] Notes/Report: Lipase 16 8-78 U/L TSH reflex Free T4 Reviewed date:03/14/2024 10:10:04 AM Interpretation: Performing Lab:[facility], [address] [place] [phone] Notes/Report: TSH reflex Free T4 0.54 0.32-4.0 uIU/mL Leukocytes Stool Qualitative Reviewed date:03/14/2024 11:09:45 AM Interpretation: Performing Lab:[facility], [address] [place] [phone] Notes/Report: Leukocytes Stool Qualitative NEGATIVE NEGATIVE Ova and Parasite Reviewed date:03/21/2024 09:47:12 AM Interpretation: Performing Lab:[facility], [address] [place] [phone] Notes/Report: Ova and Parasite SEE NOTE OVA AND PARASITES, CONC AND PERM SMEAR Micro Number: [id number] Test Status: Final Specimen Source: Stool Specimen Quality: Adequate CONCENTRATION 1: No ova or parasites seen TRICHROME 1: No ova or parasites seen Routine Ova and Parasite exam may not detect some parasites that occasionally cause diarrheal illness. Cryptosporidium Antigen and/or Cyclospora Isospora Exam may be ordered to detect these parasites. For additional information, please refer to https://[employer]ist.Xoft/faq/PTC009 (This link is being provided for informational/ educational purposes only.) THIS TEST WAS PERFORMED AT: [facility] [address] [phone] RAKESH DIAL MD Reason For Referral No [...] Problem Status W/U Status Risk Notes Problem 73881575 Epigastric pain (R10.13) Active confirmed Problem 31260639 Change in bowel habits (R19.4) Active confirmed Problem 976948449 Gastroesophageal reflux disease, unspecified whether esophagitis present (K21.9) Active confirmed Vital Signs Temperature 97.1 degrees Fahrenheit 09/09/2024 Blood pressure diastolic 01 mm Hg 09/09/2024 Height 63 in 09/09/2024 Blood pressure systolic 001 mm Hg 09/09/2024 Weight 127.2 lbs 09/09/2024 BMI 22.53 kg/m2 09/09/2024 Encounters Encounter Location Date Provider Diagnosis [facility] [address] [place] [phone] 03/11/2024 Paul Lu Jr Gastroesophageal reflux disease, unspecified whether esophagitis present K21.9 and Change in bowel habits R19.4 [facility] [address] [place] [phone] 09/09/2024 Paul uL Jr Gastroesophageal reflux disease, unspecified whether esophagitis present K21.9 and Change in bowel habits R19.4 [facility] [address] [place] [phone] 03/01/[address] [facility] [address] [place] [phone] 03/14/2024 Paul Lu Jr Assessments Encounter Date [...] treatment of this today. She will continue muqr-kbu-qrcl ter simethicone. Follow-up will be in 1 [...] treatment of this today. She will continue ezzb-dxj-tivo ter simethicone. Follow-up will be in 1 year. Plan Of Treatment Pending Test Test Name Order Date LIVER PROFILE 03/11/2024 LIPASE 03/11/2024 CBC w/o DIFF 03/11/2024 STOOL WBC 03/11/2024 OVA & PARASITES (O&P) 03/11/2024 TSH REFLEX FREE T4 03/11/2024 Future Test Test Name Order Date COLONOSCOPY 03/06/2023 UPPER GI ENDOSCOPY 10/25/2023 Next Appt Details Provider Name:Paul savage Jr, 09/10/2025 10:20:00 AM, [address] [place] [address], [facility], [place], [address], Insurance Providers Payer Name Payer Address Payer Phone Subscriber Number Group Number Insured Name Patient Relationship to Insured Coverage Start Date Coverage End Date [facility] [address] [address] [place], [place] [id number] [id number] Self - patient is the [...]
--- OUTSIDE RECORDS SUMMARY | 2025-02-25 09:57 | XMS_ITS | Encounter Summary ---
Author Organization [facility] Address [address] [place], [place] [address] Phone Care Team Providers Care Product Marketing Coordinator Name Role Phone Cathie Benavidez MD Primary Care Provider [phone] Encounter Details Date Type Department Care Team (Late st Contact Info) Description 07/22/2016 Documentation [facility] [place] [address] [place] [address] Family Medicine, Physician [address] [place], [place] [phone] Social History Tobacco Use Types Packs/Day Years [...] on filedocumented in this encounter Care Teams Product Marketing Coordinator Relationship Specialty Start Date End Date Cathie Benavidez MD [address] [place] [address] PCP - General Pediatrics 08/14/19 10/11/22 documented as of this encounter
--- OUTSIDE RECORDS SUMMARY | 2025-02-25 09:57 | XMS_ITS | Encounter Summary ---
Author Organization [facility] Address [address] [place], [place] [address] Phone Care Team Providers Care Top Former Name Role Phone Cathie Benavidez MD Primary Care Provider [phone] Encounter Details Date Type Department Care Team (Late st Contact Info) Description 11/07/2016 Documentation [facility] [place] [address] [place] [address] Family Medicine, Physician [address], [place] [phone] Social History Tobacco Use Types Packs/Day Years [...] on filedocumented in this encounter Care Teams Top Former Relationship Specialty Start Date End Date Cathie Benavidez MD 150 [place] [address] PCP - General Pediatrics 08/14/19 10/11/22 documented as of this encounter
--- OUTSIDE RECORDS SUMMARY | 2025-02-25 09:57 | XMS_ITS | Encounter Summary ---
Author Organization [facility] Address [address] [place] [address] Phone Care Team Providers Care Maintenance Team Leader Name Role Phone Cathie Benavidez MD Primary Care Provider [phone] Encounter Details Date Type Department Care Team (Late st Contact Info) Description 02/09/2017 Documentation [facility] [place] [address] [place] [address] Family Medicine, Physician [address] [place], [place] [phone] Social History Tobacco Use Types Packs/Day Years [...] on filedocumented in this encounter Care Teams Maintenance Team Leader Relationship Specialty Start Date End Date Cathie Benavidez MD [address] [place] [address] PCP - General Pediatrics 08/14/19 10/11/22 documented as of this encounter
--- OUTSIDE RECORDS SUMMARY | 2025-02-25 09:57 | XMS_ITS | Clinical Summary ---
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 Oneal not yet been evaluated by [facility]G [facility]ER. First episode 07/2019: - 08/14/2019: In ED CT abd/pelvis with IV contrast normal. Chemistries icnluding lipase, cbc normal. HCG neg. - 08/17/2019 Diagnosed in the office with PID and treated. G/C negative. Transvaginal ultrasound was normal. D iagnosed with constipation, treated with miralax. - 08/20/2019 Sent back to ED by [facility], second transvaginal U/S was done. - 08/29/2019: [...] metronidazole. She did have an ultrasound at [facility] on 04/29 and has not heard results - 05/04/2020: Office visit here in extreme pain, sent Back to ED where she left without completing her visit. 07/23/2020: Labs and KUB normal. GI apt upcoming 07/30/2020 07/30/2020: GI (Dr Trejo) planning for endoscpoy Third episode: 11/17/2020 (age 20yr): [facility] ED for pelvic pain, suspected pelvic congestive syndrome. U/S normal except prominent pelvic vasculature. Suggest LEG BREAKER referral. 11/26/2020 (age 20yr): : admitted to [facility] 11/18/2020 - 11/12/2020 for 5 days of severe abdominal pain. Initiated treatment for presumed PID, no other diagnosis made, treated wit abx. GC/chlam neg. Missed LEG BREAKER appointment. Assessment & Plan (12/03/2020 9:13 AM EDT): 12/03/2020 (age 20yr): vag probe from yesterday positive for yeast. With pt on antibiotics for PID and having symptoms of vaginitis, I recommend treatment. I will call in [facility] for her. 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 Oneal not yet been evaluated by LEG BREAKER. Feeling better today after recent admission to [facility] where she was treated for PID. - Recommend reschedule with LEG BREAKER, be persistent about getting appt and confirming appt time. - Recommend adult primary care as Petr is starting to have adult medical issues and may be needing more job developer for deaf adults care going forward. Assessment & Plan (05/12/2020 [...] nd well Other Family history of Sudden /[place] under 55, Family history of Asthma, No [...] 2-dose series) 07/17/2020 01/15/2020 Influenza Vaccines (#1) 2025 03/27/20 19, 03/07/2018, 03/28/2017, Additional history exists COVID-19 Vaccine (2024- 6 season) 2025 01/05/2021, 12/01/2020 DTaP,Tdap,and Td Vaccines (8 - [...] 04/30/2017, 09/2003, 09/28/2000 Procedures * Due to [place] state law, this organization might not be sharing sensitive test results. Procedure Name Priority Date/Time Associated Diagnosis Comments CHLAMYDIA AND GONORRHEA, AMPLIFIED Routine 05/05/2020 4:29 PM EST Screening examination for bacterial and spirochetal disease from Last 3 Months or Most Recently Relevant to Health Maintenance Results * Due to [place] state law, this organization might not be sharing sensitive test results. * Chlamydia and Gonorrhoea, Amplified (05/05/2020 4:29 PM EST) Chlamydia Trachomatis, DNA Probe NOT DETECTED (NEG) [facility] Comment:Reference range: NOT DETECTED URINE GC AMP PROBE NOT DETECTED (NEG) [facility] Comment: Reference range: NOT DETECTED (NOTE) The analytical performance characteristics of this assay, when used to test SurePath(TM) specimens have been determined by [employer]. The modifications have not been cleared or approved by the FDA. This assay has been validated pursuant to the CLIA regulations and is used for clinical purposes. = For additional information, please refer to https://education.Teedot/faq/TPN195 (This link is being provided for information/ educational purposes only.) = Test Performed by: [employer], [address] [place] [address]. [id number]. Medical Office Assistant: Gil Newberry MD. Testing performed or reported by [facility], a Service of [facility], [facility] [place] [address] Baljit Faith MD, Warehouse Packer Urine 05/05/2020 4:29 PM EST 05/05/2020 7:26 PM EST Cathie Benavidez MD LAB MICROBIOLOGY - GENERAL OR DERABLES Final Result [facility] from Last 3 Months or Most Recently Relevant to Health Maintenance Insurance [facility] NON PCC
--- OUTSIDE RECORDS SUMMARY | 2025-02-25 09:57 | XMS_ITS | Encounter Summary ---
Author Organization [facility] Address [address] [place], [place] [address] Phone Care Team Providers Care Tobacco Drummer Name Role Phone Cathie Benavidez MD Primary Care Provider [phone] Encounter Details Date Type Department Care Team (Late st Contact Info) Description 12/09/2015 Documentation [facility] [place] Family Medicine [address] [place] [address] Family Medicine, Physician [address] [place], [place] [phone] Social History Tobacco Use Types Packs/Day Years [...] on filedocumented in this encounter Care Teams Tobacco Drummer Relationship Specialty Start Date End Date Cathie Benavidez MD [address] [place] [address] PCP - General Pediatrics 08/14/19 10/11/22 documented as of this encounter
--- OUTSIDE RECORDS SUMMARY | 2025-02-25 09:57 | XMS_ITS | Encounter Summary ---
Author Organization [facility] Address [address] [place], [place] [address] Phone Care Team Providers Care Clinical Research Analyst Name Role Phone Cathie Benavidez MD Primary Care Provider [phone] Encounter Details Date Type Department Care Team (Late st Contact Info) Description 11/07/2016 Documentation [facility] [place] [address] [place] [address] Family Medicine, Physician [address] [place], [place] [phone] Social History Tobacco Use Types Packs/Day Years [...] on filedocumented in this encounter Care Teams Clinical Research Analyst Relationship Specialty Start Date End Date Cathie Benavidez MD [address] [place] [address] PCP - General Pediatrics 08/14/19 10/11/22 documented as of this encounter
--- OUTSIDE RECORDS SUMMARY | 2025-02-25 09:57 | XMS_ITS | Encounter Summary ---
Author Organization [facility] Address [address] [place], [place] [address] Phone Care Team Providers Care Station Captain Name Role Phone Cathie Benavidez MD Primary Care Provider [phone] Encounter Details Date Type Department Care Team (Late st Contact Info) Description 08/11/2016 Documentation [facility] [place] Family Medicine [address] [place] [address] Family Medicine, Physician [address] [place], [place] [phone] Social History Tobacco Use Types Packs/Day Years [...] on filedocumented in this encounter Care Teams Station Captain Relationship Specialty Start Date End Date Cathie Benavidez MD [address] [place] [address] PCP - General Pediatrics 08/14/19 10/11/22 documented as of this encounter
--- OUTSIDE RECORDS SUMMARY | 2025-02-25 09:57 | XMS_ITS | Encounter Summary ---
Author Organization [facility] Address [address] [place], [place] [address] Phone Care Team Providers Care Temperer Name Role Phone Cathie Benavidez MD Primary Care Provider [phone] Encounter Details Date Type Department Care Team (Late st Contact Info) Description 09/08/2016 Documentation [facility] [place] [address] [place] [address] Family Medicine, Physician [address] [place], [place] [phone] Social History Tobacco Use Types Packs/Day Years [...] on filedocumented in this encounter Care Teams Temperer Relationship Specialty Start Date End Date Cathie Benavidez MD [address] [place] [address] PCP - General Pediatrics 08/14/19 10/11/22 documented as of this encounter
--- OUTSIDE RECORDS SUMMARY | 2025-02-25 09:57 | XMS_ITS | Encounter Summary ---
Author Organization [facility] Address [address] [place] [address] Phone Care Team Providers Care Hydro Plant Operator Name Role Phone Cathie Benavidez MD Primary Care Provider [phone] Encounter Details Date Type Department Care Team (Late st Contact Info) Description 02/09/2017 Documentation [facility] [place] Family Medicine [address] [place] [address] Family Medicine, Physician [address] [place], [place] [phone] Social History Tobacco Use Types Packs/Day Years [...] on filedocumented in this encounter Care Teams Hydro Plant Operator Relationship Specialty Start Date End Date Cathie Benavidez MD [address] [place] [address] PCP - General Pediatrics 08/14/19 10/11/22 documented as of this encounter
--- OUTSIDE RECORDS SUMMARY | 2025-02-25 09:57 | XMS_ITS | Encounter Summary ---
Author Organization [facility] Address [address] [place], [place] [address] Phone Care Team Providers Care Business Database Analyst Name Role Phone Cathie Benavidez MD Primary Care Provider [phone] Encounter Details Date Type Department Care Team (Late st Contact Info) Description 06/06/2016 Documentation [facility] [place] Family Medicine [address] [place] [address] Family Medicine, Physician [address] [place], [place] [phone] Social History Tobacco Use Types Packs/Day Years [...] on filedocumented in this encounter Care Teams Business Database Analyst Relationship Specialty Start Date End Date Cathie Benavidez MD [address] [place] [address] PCP - General Pediatrics 08/14/19 10/11/22 documented as of this encounter
--- OUTSIDE RECORDS SUMMARY | 2025-02-25 09:57 | XMS_ITS | Encounter Summary ---
Author Organization [facility] Address [address] [place], [place] [address] Phone Care Team Providers Care Hearing Aid Dispenser Name Role Phone Cathie Benavidez MD Primary Care Provider [phone] Encounter Details Date Type Department Care Team (Late st Contact Info) Description 09/08/2016 Documentation [facility] [place] Family Medicine [address] [place] [address] Family Medicine, Physician [address] [place], [place] [phone] Social History Tobacco Use Types Packs/Day Years [...] on filedocumented in this encounter Care Teams Hearing Aid Dispenser Relationship Specialty Start Date End Date Cathie Benavidez MD [address] [place] [address] PCP - General Pediatrics 08/14/19 10/11/22 documented as of this encounter
--- OUTSIDE RECORDS SUMMARY | 2025-02-25 09:57 | XMS_ITS | Encounter Summary ---
Author Organization [facility] Address [address] [place] [address] Phone Care Team Providers Care Qa Auditor Name Role Phone Cathie Benavidez MD Primary Care Provider [phone] Encounter Details Date Type Department Care Team (Late st Contact Info) Description 02/09/2017 Conversion Encounter [facility] [place] [address] [place] [address] Social History Tobacco Use Types Packs/Day Years [...] on filedocumented in this encounter Care Teams Qa Auditor Relationship Specialty Start Date End Date Cathie Benavidez MD [address] [place] [address] PCP - General Pediatrics 08/14/19 10/11/22 documented as of this encounter
== END ==
LOC: HO.CARD 09:06
PROVIDERS: PCP Internal Medicine; Visit Provider Registered Nurse
DX: R55 Syncope and collapse (principal)
CPT/HCPCS: 93225

== ENCOUNTER → 2025-02-25 09:08 | Outpatient (BNV) | payer OTHER, SELFPAY | PROVIDERS: PCP Internal Medicine; Visit Provider Internal Medicine Cardiovascular Disease | DX: I49.1 Atrial premature depolarization (principal) | CPT/HCPCS: 93227 ==

== ENCOUNTER 2025-02-26 08:51 | Outpatient (REF) | payer OTHER, SELFPAY ==
--- OUTSIDE RECORDS SUMMARY | 2023-11-14 08:30 | XMS_ITS ---
Author Organization [facility] Address [address] [place] [address] [place] [address] Care Team Providers Care Conveyor System Dispatcher Name Role Phone Neel Duque MD Primary Care Provider Paul Cortes Jr REASON FOR VISIT epigastric pain Encounters Encounter Location Date Provider Diagnosis [facility] Outpatient [address] [place] [id number] 11/14/2023 Paul Lu Jr Epigastric pain R10.13 Assessments Encounter Date Diagnosis (ICD Code) Assessment Notes Treatment Notes Treatment Clinical Notes Section Notes 11/14/2023 Epigastric pain (ICD-10 - R10.13) Plan Of Treatment Next Appt Details Provider Name:Paul savage Jr, 09/10/2025 10:20:00 AM, [address] [place] [address], Suite [facility], [place], [address], Progress Notes * JOSIAH BALLB:[birth year] (24 yo F)Acc No.[id number]:11/14/2023 EGD/MAC Patient: Vick BERGERON IFEOMA Provider: Chavez Lu MD :2000 A ge:23 Y S ex:Female Date:11/14/2023 Address:[address] [place] [address] [address] [place], [place] Pcp:Neel Duque MD Subjective: * Chief Complaints: [...] 11/14/2023 Generated for Shalini nunez/Amber/Kerryitting on: 0 02/26/2025 09:21 AM EDT
--- NOTE | 2025-02-26 09:03 | EEG_ITS ---
Reason: Syncope and collapse History: diarrhea, acute gastroenteritis, external hemorrhoids, anxiety and depression, cough, allergies, LBP, migraine with aura, asthma Medications: acetaminophen, albuterol sulfate, bisacodyl, dextrin, dicyclomine, ibuprofen, menthol-zinc oxide, ondansetron, simethicone Technical description: Photic stimulation: completed Hyperventilation: completed Behavioral state: anxiety attack at the end of recording State of Consciousness: awake Skull defect: none Sedation: no Handedness: right ROOM 402 for reading This is a 16 channel EEG with an EKG lead. Patient is reported awake during the tracing. Background EEG rhythm is 10-12 hertz 5-200 microvolt posteriorly and lower amplitude fast anteriorly. Photic stimulation does not produce any significant abnormality. Hyperventilation is unremarkable. Cardiac lead does not reveal any significant abnormality. No sharp wave spikes or paroxysmal tendency noted. Impression: No significant abnormality noted on this EEG. MTDD
--- OUTSIDE RECORDS SUMMARY | 2025-02-26 09:22 | XMS_ITS | Encounter Summary ---
Author Organization [facility] Address [address] [place], [place] [address] Phone Care Team Providers Care Commissioning Specialist Name Role Phone Cathie Benavidez MD Primary Care Provider [phone] Encounter Details Date Type Department Care Team (Late st Contact Info) Description 12/09/2015 Documentation [facility] [place] [address] [place] [address] Family Medicine, Physician [address] [place], [place] [phone] Social History Tobacco Use Types Packs/Day Years [...] on filedocumented in this encounter Care Teams Commissioning Specialist Relationship Specialty Start Date End Date Cathie Benavidez MD [address] [place] [address] PCP - General Pediatrics 08/14/19 10/11/22 documented as of this encounter
--- OUTSIDE RECORDS SUMMARY | 2025-02-26 09:22 | XMS_ITS | Encounter Summary ---
Author Organization [facility] Address [address] [place], [place] [address] Phone Care Team Providers Care Stars Specialist Name Role Phone Cathie Benavidez MD Primary Care Provider [phone] Encounter Details Date Type Department Care Team (Late st Contact Info) Description 07/22/2016 Documentation [facility] [place] Medicine [address] [place] [address] Family Medicine, Physician [address] [place], [place] [phone] Social History Tobacco Use Types Packs/Day Years [...] on filedocumented in this encounter Care Teams Stars Specialist Relationship Specialty Start Date End Date Cathie Benavidez MD [address] [place] [address] PCP - General Pediatrics 08/14/19 10/11/22 documented as of this encounter
--- OUTSIDE RECORDS SUMMARY | 2025-02-26 09:22 | XMS_ITS | Encounter Summary ---
Author Organization [facility] Address [address] [place], [place] [address] Phone Care Team Providers Care Supervising Librarian Name Role Phone Cathie Benavidez MD Primary Care Provider [phone] Encounter Details Date Type Department Care Team (Late st Contact Info) Description 11/07/[address] [facility] [place] Family Medicine [address] [place] [address] Family Medicine, Physician [address] [place], [place] [phone] Social History Tobacco Use Types Packs/Day Years [...] on filedocumented in this encounter Care Teams Supervising Librarian Relationship Specialty Start Date End Date Cathie Benavidez MD [address] [place] [address] PCP - General Pediatrics 08/14/19 10/11/22 documented as of this encounter
--- OUTSIDE RECORDS SUMMARY | 2025-02-26 09:22 | XMS_ITS | Encounter Summary ---
Author Organization [facility] Address [address] [place] [address] Phone Care Team Providers Care Mortgage Originator Name Role Phone Cathie Benavidez MD Primary Care Provider [phone] Encounter Details Date Type Department Care Team (Late st Contact Info) Description 02/09/2017 Documentation [facility] [place] [address] [place] [address] Family Medicine, Physician [address] [place], [place] [phone] Social History Tobacco Use Types Packs/Day Years [...] on filedocumented in this encounter Care Teams Mortgage Originator Relationship Specialty Start Date End Date Cathie Benavidez MD [address] [place] [address] PCP - General Pediatrics 08/14/19 10/11/22 documented as of this encounter
--- OUTSIDE RECORDS SUMMARY | 2025-02-26 09:22 | XMS_ITS | Encounter Summary ---
Author Organization [facility] Address [address] [place], [place] [address] Phone Care Team Providers Care Coal Handler Name Role Phone Cathie Benavidez MD Primary Care Provider [phone] Encounter Details Date Type Department Care Team (Late st Contact Info) Description 08/11/2016 Documentation [facility] [place] Family Medicine [address] [place] [address] Family Medicine, Physician [address] [place], [place] [phone] Social History Tobacco Use Types Packs/Day Years [...] on filedocumented in this encounter Care Teams Coal Handler Relationship Specialty Start Date End Date Cathie Benavidez MD [address] [place] [address] PCP - General Pediatrics 08/14/19 10/11/22 documented as of this encounter
--- OUTSIDE RECORDS SUMMARY | 2025-02-26 09:22 | XMS_ITS | Encounter Summary ---
Author Organization [facility] Address [address] [place] [address] Phone Care Team Providers Care Shell Machine Operator Name Role Phone Cathie Benavidez MD Primary Care Provider [phone] Encounter Details Date Type Department Care Team (Late st Contact Info) Description 02/09/2017 Documentation [facility] [place] Family Medicine [address] [place] [address] Family Medicine, Physician [address] [place], [place] [phone] Social History Tobacco Use Types Packs/Day Years [...] on filedocumented in this encounter Care Teams Shell Machine Operator Relationship Specialty Start Date End Date Cathie Benavidez MD [address] [place] [address] PCP - General Pediatrics 08/14/19 10/11/22 documented as of this encounter
--- OUTSIDE RECORDS SUMMARY | 2025-02-26 09:22 | XMS_ITS | Encounter Summary ---
Author Organization [facility] Address [address] [place], [place] [address] Phone Care Team Providers Care Transitional Care Liaison Name Role Phone Cathie Benavidez MD Primary Care Provider Encounter Details Date Type Department Care Team (Late st Contact Info) Description 09/08/2016 Documentation [facility] [place] Family Medicine [address] [place] [address] Family Medicine, Physician [address] [place], [place] [phone] Social History Tobacco Use Types Packs/Day Years [...] on filedocumented in this encounter Care Teams Transitional Care Liaison Relationship Specialty Start Date End Date Cathie Benavidez MD [address] [place] [address] PCP - General Pediatrics 08/14/19 10/11/22 documented as of this encounter
--- OUTSIDE RECORDS SUMMARY | 2025-02-26 09:22 | XMS_ITS | Patient Health Record ---
Author Organization [facility] Address [address] [place] [address] Care Team Providers Care Final Inspector Paper Name Role Phone Neel Duque MD Primary Care Provider Paul Cortes Jr Unavailable Allergies No Known Allergies Results Component Value Reference Range Notes GI PANEL Reviewed date:03/14/2024 11:09:52 AM Interpretation: Performing Lab:[facility], [address] [place] [phone] Notes/Report: Campylobacter Not Detected Not Detect. Plesiomonas [...] is performed by Multiplexed PCR, utilizing the [employer] Array. Complete Blood Count Auto Di ff Reviewed date:03/14/2024 10:11:46 AM Interpretation: Performing Lab:[facility], [address] [place] [phone] Notes/Report: White Blood Count 6.2 4.8-10.8 X10*3/uL [...] Panel Reviewed date:03/14/2024 10:10:20 AM Interpretation: Performing Lab:[facility], [address] [place] [phone] Notes/Report: Bilirubin Total 0.4 0.0-1.0 mg/dL Bilirubin Direct 0.2 0.0-0.5 mg/dL Aspartate Amino Transferase 18 5-31 U/L Alanine Aminotransferase 13 0-31 U/L Total Protein 7.5 6.5-8.0 g/dL Albumin Level 4.6 3.5-5.0 g/dL Alkaline Phosphatase 69 39-117 U/L Lipase Reviewed date:03/14/2024 10:10:12 AM Interpretation: Performing Lab:[facility], [address] [place] [phone] Notes/Report: Lipase 16 8-78 U/L TSH reflex Free T4 Reviewed date:03/14/2024 10:10:04 AM Interpretation: Performing Lab:[facility], [address] [place] [phone] Notes/Report: TSH reflex Free T4 0.54 0.32-4.0 uIU/mL Leukocytes Stool Qualitative Reviewed date:03/14/2024 11:09:45 AM Interpretation: Performing Lab:[facility], [address] [place] [phone] Notes/Report: Leukocytes Stool Qualitative NEGATIVE NEGATIVE Ova and Parasite Reviewed date:03/21/2024 09:47:12 AM Interpretation: Performing Lab:[facility], [address] [place] [phone] Notes/Report: Ova and Parasite SEE NOTE OVA AND PARASITES, CONC AND PERM SMEAR Micro Number: [id number] Test Status: Final Specimen Source: Stool Specimen Quality: Adequate CONCENTRATION 1: No ova or parasites seen TRICHROME 1: No ova or parasites seen Routine Ova and Parasite exam may not detect some parasites that occasionally cause diarrheal illness. Cryptosporidium Antigen and/or Cyclospora Isospora Exam may be ordered to detect these parasites. For additional information, please refer to https://[employer].Ekahau/faq/SQC076 (This link is being provided for informational/ educational purposes only.) THIS TEST WAS PERFORMED AT: [employer] [address] [address] RAKESH DIAL MD Reason For Referral No [...] Problem Status W/U Status Risk Notes Problem 78605323 Epigastric pain (R10.13) Active confirmed Problem [id number] Change in bowel habits (R19.4) Active confirmed Problem [id number] Gastroesophageal reflux disease, unspecified whether esophagitis present (K21.9) Active confirmed Vital Signs Temperature 97.1 degrees Fahrenheit 09/09/2024 Blood pressure diastolic 01 mm Hg 09/09/2024 Height 63 in 09/09/2024 Blood pressure systolic 001 mm Hg 09/09/2024 Weight 127.2 lbs 09/09/2024 BMI 22.53 kg/m2 09/09/2024 Encounters Encounter Location Date Provider Diagnosis [facility] [address] [place] [phone] 03/11/2024 Paul Lu Jr Gastroesophageal reflux disease, unspecified whether esophagitis present K21.9 and Change in bowel habits R19.4 [facility] [address] [place] [phone] 09/09/2024 Paul Lu Jr Gastroesophageal reflux disease, unspecified whether esophagitis present K21.9 and Change in bowel habits R19.4 [facility] [address] [place] [phone] 03/01/2024 Paul Lu Jr [facility] [address] [place] [phone] 03/14/2024 Paul Lu Jr Assessments Encounter Date [...] treatment of this today. She will continue iyda-fuo-yxqc ter simethicone. Follow-up will be in 1 [...] treatment of this today. She will continue nenz-oah-ijgm ter simethicone. Follow-up will be in 1 year. Plan Of Treatment Pending Test Test Name Order Date LIVER PROFILE 03/11/2024 LIPASE 03/11/2024 CBC w/o DIFF 03/11/2024 STOOL WBC 03/11/2024 OVA & PARASITES (O&P) 03/11/2024 TSH REFLEX FREE T4 03/11/2024 Future Test Test Name Order Date COLONOSCOPY 03/06/2023 UPPER GI ENDOSCOPY 10/25/2023 Next Appt Details Provider Name:Palu savage Jr, 09/10/2025 10:20:00 AM, [address] [place] [address], [facility] [address], [place], [address], Insurance Providers Payer Name Payer Address Payer Phone Subscriber Number Group Number Insured Name Patient Relationship to Insured Coverage Start Date Coverage End Date [facility] [address] [address] [place], [place] [id number] [employer] Self - patient is the [...]
--- OUTSIDE RECORDS SUMMARY | 2025-02-26 09:22 | XMS_ITS | Encounter Summary ---
Author Organization [facility] Address [address] [place] [address] Phone Care Team Providers Care Solution Engineer Name Role Phone Cathie Benavidez MD Primary Care Provider [phone] Encounter Details Date Type Department Care Team (Late st Contact Info) Description 02/09/2017 Conversion Encounter [facility] [place] [address] [place] [address] Social History Tobacco Use Types Packs/Day Years [...] on filedocumented in this encounter Care Teams Solution Engineer Relationship Specialty Start Date End Date Cathie Benavidez MD [address] [place] [address] PCP - General Pediatrics 08/14/19 10/11/22 documented as of this encounter
--- OUTSIDE RECORDS SUMMARY | 2025-02-26 09:22 | XMS_ITS | Clinical Summary ---
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 Oneal not yet been evaluated by [employer] [facility] [employer]. First episode 07/2019: - 08/14/2019: In ED CT abd/pelvis with IV contrast normal. Chemistries icnluding lipase, cbc normal. HCG neg. - 08/17/2019 Diagnosed in the office with PID and treated. G/C negative. Transvaginal ultrasound was normal. D iagnosed with constipation, treated with miralax. - 08/20/2019 Sent back to ED by [employer] [facility] [employer], second transvaginal U/S was done. - 08/29/2019: [...] metronidazole. She did have an ultrasound at [facility] on 04/29 and has not heard results - 05/04/2020: Office visit here in extreme pain, sent Back to ED where she left without completing her visit. 07/23/2020: Labs and KUB normal. GI apt upcoming 07/30/2020 07/30/2020: GI (Dr Trejo) planning for endoscpoy Third episode: 11/17/2020 (age 20yr): [facility] ED for pelvic pain, suspected pelvic congestive syndrome. U/S normal except prominent pelvic vasculature. Suggest [employer] referral. 11/26/2020 (age 20yr): : admitted to [facility] 11/18/2020 - 11/12/2020 for 5 days of severe abdominal pain. Initiated treatment for presumed PID, no other diagnosis made, treated wit abx. GC/chlam neg. Missed [employer] appointment. Assessment & Plan (12/03/2020 9:13 AM EDT): 12/03/2020 (age 20yr): vag probe from yesterday positive for yeast. With pt on antibiotics for PID and having symptoms of vaginitis, I recommend treatment. I will call in [facility] for her. 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 Oneal not yet been evaluated by [employer] [facility]. Feeling better today after recent admission to [facility] where she was treated for PID. - Recommend reschedule with [employer] [employer], be persistent about getting appt and confirming [...] nd well Other Family history of Sudden /UT under 55, Family history of Asthma, No [...] 04/30/2017, 09/2003, 09/28/2000 Procedures * Due to [place] state law, this organization might not be sharing sensitive test results. Procedure Name Priority Date/Time Associated Diagnosis Comments CHLAMYDIA AND GONORRHEA, AMPLIFIED Routine 05/05/2020 4:29 PM EST Screening examination for bacterial and spirochetal disease from Last 3 Months or Most Recently Relevant to Health Maintenance Results * Due to [place] state law, this organization might not be sharing sensitive test results. * Chlamydia and Gonorrhoea, Amplified (05/05/2020 4:29 PM EST) Chlamydia Trachomatis, DNA Probe NOT DETECTED (NEG) [facility] Comment:Reference range: NOT DETECTED URINE GC AMP PROBE NOT DETECTED (NEG) [facility] Comment: Reference range: NOT DETECTED (NOTE) The analytical performance characteristics of this assay, when used to test SurePath(TM) specimens have been determined by [employer]. The modifications have not been cleared or approved by the FDA. This assay has been validated pursuant to the CLIA regulations and is used for clinical purposes. = For additional information, please refer to https://education.dBMEDx/faq/XYN510 (This link is being provided for information/ educational purposes only.) = Test Performed by: [facility], [address] [place] [address]. [id number]. Field Recorder: Gil Newberry MD. Testing performed or reported by [facility], a Service of [facility], [facility] [place] [address] Baljit Faith MD, Truss Builder Urine 05/05/2020 4:29 PM EST 05/05/2020 7:26 PM EST Cathie Benavidez MD LAB MICROBIOLOGY - GENERAL OR DERABLES Final Result [facility] from Last 3 Months or Most Recently Relevant to Health Maintenance Insurance [facility] NON PCC
--- OUTSIDE RECORDS SUMMARY | 2025-02-26 09:22 | XMS_ITS | Encounter Summary ---
Author Organization [facility] Address [address] [place], [place] [address] Phone Care Team Providers Care Fire Management Technician Name Role Phone Cathie Benavidez MD Primary Care Provider [phone] Encounter Details Date Type Department Care Team (Late st Contact Info) Description 12/09/2015 Documentation [facility] [place] [address] [place] [address] Family Medicine, Physician [address] [place], [place] [phone] Social History Tobacco Use Types Packs/Day Years [...] on filedocumented in this encounter Care Teams Fire Management Technician Relationship Specialty Start Date End Date Cathie Benavidez MD [address] [place] [address] PCP - General Pediatrics 08/14/19 10/11/22 documented as of this encounter
--- OUTSIDE RECORDS SUMMARY | 2025-02-26 09:22 | XMS_ITS | Encounter Summary ---
Author Organization [facility] Address [address] [place], [place] [address] Phone Care Team Providers Care Scrap Metal Burner Name Role Phone Cathie Benavidez MD Primary Care Provider [phone] Encounter Details Date Type Department Care Team (Late st Contact Info) Description 11/07/2016 Documentation [facility] [place] Family Medicine [address] [place] [address] Family Medicine, Physician [address] [place], [place] [phone] Social History Tobacco Use Types Packs/Day Years [...] on filedocumented in this encounter Care Teams Scrap Metal Burner Relationship Specialty Start Date End Date Cathie Benavidez MD [address] [place] [address] PCP - General Pediatrics 08/14/19 10/11/22 documented as of this encounter
--- OUTSIDE RECORDS SUMMARY | 2025-02-26 09:22 | XMS_ITS | Encounter Summary ---
Author Organization [facility] Address [address] [place], [place] [address] Phone Care Team Providers Care Mushroom Growth Media Mixer Name Role Phone Cathie Benavidez MD Primary Care Provider [phone] Encounter Details Date Type Department Care Team (Late st Contact Info) Description 10/03/2016 Documentation [facility] [place] Family Medicine [address] [place] [address] Family Medicine, Physician [address] [place], [place] [phone] Social History Tobacco Use Types Packs/Day Years [...] on filedocumented in this encounter Care Teams Mushroom Growth Media Mixer Relationship Specialty Start Date End Date Cathie Benavidez MD [address] [place] [address] PCP - General Pediatrics 08/14/19 10/11/22 documented as of this encounter
--- OUTSIDE RECORDS SUMMARY | 2025-02-26 09:22 | XMS_ITS | Encounter Summary ---
Author Organization [facility] Address [address] [place], [place] [address] Phone Care Team Providers Care Copping Machine Operator Name Role Phone Cathie Benavidez MD Primary Care Provider [phone] Encounter Details Date Type Department Care Team (Late st Contact Info) Description 09/08/2016 Documentation [facility] [place] [address] [place] [address] Family Medicine, Physician [address] [place], [place] [phone] Social History Tobacco Use Types Packs/Day Years [...] on filedocumented in this encounter Care Teams Copping Machine Operator Relationship Specialty Start Date End Date Cathie Benavidez MD [address] [place] [address] PCP - General Pediatrics 08/14/19 10/11/22 documented as of this encounter
--- OUTSIDE RECORDS SUMMARY | 2025-02-26 09:22 | XMS_ITS | Encounter Summary ---
Author Organization [facility] Address [address] [place], [place] [address] Phone Care Team Providers Care Quarry Plant Crusher Operator Name Role Phone Cathie Benavidez MD Primary Care Provider [phone] Encounter Details Date Type Department Care Team (Late st Contact Info) Description 06/06/2016 Documentation [facility] [place] Family Medicine [address] [place] [address] Family Medicine, Physician [address] [place], [place] [phone] Social History Tobacco Use Types Packs/Day Years [...] on filedocumented in this encounter Care Teams Quarry Plant Crusher Operator Relationship Specialty Start Date End Date Cathie Benavidez MD [address] [place] [address] PCP - General Pediatrics 08/14/19 10/11/22 documented as of this encounter
== END 2025-02-26 08:52 | disposition home or self-care (01) ==
LOC: HO.NEURO 08:51
PROVIDERS: PCP Internal Medicine; Visit Provider Psychiatry & Neurology Neurology
DX: R55 Syncope and collapse (principal)
CPT/HCPCS: 95816

== ENCOUNTER → 2025-02-26 09:03 | Outpatient (BNV) | payer OTHER, SELFPAY | PROVIDERS: PCP Internal Medicine; Visit Provider Psychiatry & Neurology Neurology | DX: R55 Syncope and collapse (principal) | CPT/HCPCS: 95816 ==

== ENCOUNTER 2025-03-11 09:12 | Outpatient (REF) | payer OTHER, SELFPAY ==
[2025-03-12 09:58] LABS: Bacterial Vaginosis PCR POSITIVE (Negative); Candida Group PCR NOT DETECTED (Not Detect); Candida glab krusei PCR NOT DETECTED (Not Detect); Trichomonas vaginalis PCR NOT DETECTED (Not Detect)
[2025-03-12 10:30] LABS: CT PCR NOT DETECTED (Not Detect.); NG PCR NOT DETECTED (Not Detect.)
== END 2025-03-11 09:13 | disposition home or self-care (01) ==
LOC: HO.LNP 09:12
PROVIDERS: PCP Internal Medicine; Visit Provider Obstetrics & Gynecology
DX: Z01.419 Encounter for gynecological examination (general) (routine) without abnormal findings (principal); N76.0 Acute vaginitis; Z20.2 Contact with and (suspected) exposure to infections with a predominantly sexual mode of transmission
CPT/HCPCS: 81515; 87491; 87591; 99212; 99395

== ENCOUNTER 2025-03-11 09:12 | Outpatient (AMB) | payer OTHER, SELFPAY ==
--- OUTSIDE RECORDS SUMMARY | 2023-11-14 08:30 | XMS_ITS ---
Author Organization [facility] Address [address] [place] [address] [place] [phone] Care Team Providers Care School Psychology Specialist Name Role Phone Neel Duque MD Primary Care Provider Paul Cortes Jr REASON FOR VISIT epigastric pain Encounters Encounter Location Date Provider Diagnosis [facility] Outpatient [address] [place] [id number] 11/14/2023 Paul Lu Jr Epigastric pain R10.13 Assessments Encounter Date Diagnosis (ICD Code) Assessment Notes Treatment Notes Treatment Clinical Notes Section Notes 11/14/2023 Epigastric pain (ICD-10 - R10.13) Plan Of Treatment Next Appt Details Provider Name:Paul savage Jr, 09/10/2025 10:20:00 AM, [address] [place] [address], Suite [facility], [place], [address], Progress Notes * JOSIAH BALLB:[birth year] (24 yo F)Acc No.[id number]:11/14/2023 EGD/MAC Patient: Vick BERGERON IFEOMA Provider: Chavez Lu MD :2000 A ge:23 Y S ex:Female Date:11/14/2023 Address:[address] [place] [address] [place] Pcp:Neel Duque MD Subjective: * Chief Complaints: [...] 11/14/2023 Generated for Shalini nunez/Amber/Kerryitting on: 0 03/11/2025 11:30 AM EDT
--- NOTE | 2025-03-11 09:14 | MHC.OFFVIS ---
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 Group Fitness Assistant Department Head Required: No Information Interpreted: non-clinical & clinical Agency Service Representative: Agency Service Representative Present (Courtney MORROW) Accompanied by: Self / Same As Patient Allergies Seasonal Allergies Allergy (Intermediate, Verified 03/11/25 09:18) Itchy Eyes Is last menstrual period known: Yes Last menstrual period: 02/15/25 HPI Comments Details: Presenting for annual exam, complaining of vulvovaginal discharge associated with foul odor Last Pap smear in 03/19 was negative [facility] Medical History Diarrhea Acute gastroenteritis External hemorrhoids with complication Anxiety and depression Cough Cough due to LYNN inhibitor Seasonal allergies Low back pain Migraine with aura Asthma Surgical History History of salpingectomy H/O colonoscopy Family History Paternal Grandmother Breast CA Mother Crohn disease Seizure Father Migraine Seizure Brother Bipolar 1 disorder Maternal Grandmother Heart disease Maternal Aunt Colon cancer Other Mental health disorder Social History Housing: Apartment Alcohol intake: never Patient Tobacco Use Status: Never used Tobacco Tobacco use type: Cigarette Years Smoked: marijuana e-Cigarette/Vaping Use: Never Used Second Hand Smoke Exposure: No Substance Use Type: Marijuana service: No Current occupational status: employed Current occupation: [employer] 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[employer]ER Current occupational exposures/hazards: No Sexual orientation: Straight/Heterosexual Gender identity: Female Cognitive needs: No Hearing needs: No Vision needs: No Female Reproductive History Menstrual Age of Menarche: 12 Duration of menses: 3-5 days Date of last menstrual period: 02/15/25 Review of Systems Const All systems reviewed & are unremarkable except as noted in HPI and below Card Reports as per HPI Resp Reports as per HPI GI Reports as per HPI and Reports no additional complaints Reports as per HPI Physical Exam Vital Signs: Last Vital Signs BP 122/74 03/11/25 09:15 BMI result Body Mass Index 21.9 Const General: cooperative, healthy appearing and comfortable Chest Chest palpation & inspection: normal inspection of the chest and normal palpation of entire chest wall Breast/axilla inspection: normal inspection of the breasts and normal inspection of the axillae Breast/axilla palpation: normal palpation of the breasts, normal palpation of the axillae and no axillary lymphadenopathy Resp Effort & Inspection: normal respiratory effort Auscultation: clear to auscultation bilaterally Percussion: percussion normal Cardio Palpation: normal PMI Rate: regular rate Rhythm: regular rhythm Heart sounds: no murmurs and no rubs Peripheral pulses: Peripheral pulses 2+ throughout GI Inspection: Yes normal to inspection Palpation (GI): Soft to palpation, nontender, no guarding, not rigid and No hepatosplenomegaly present Percussion: Yes normal to percussion Auscultation: normal bowel sounds Rectal Exam - Female: deferred General: Yes bladder normal to palpation External Female Exam: No lesion Speculum Exam - Vagina: normal appearance of the vagina, normal palpation, normal vaginal discharge and not erythematous Speculum Exam - Cervix: normal appearance of the cervix and normal palpation Bimanual exam- vagina & uterus: normal bimanual exam, normal palpation, uterine size normal, bladder normal to palpation, consistency normal and normal palpation Bimanual Exam- Adnexa, other: normal adnexae, no masses and no tenderness Assessment & Plan Assessment & Plan (1) Well woman exam: Code(s): Z01.419 - Encounter for gynecological examination (general) (routine) without abnormal findings Category: Medical Plan: Pap smear not indicated this year. Counseled the patient about the recommended dietary allowance of 1000 mg of Calcium & 600 IU of vitamin D. The patient was instructed to perform monthly self-breast exams and to schedule an annual exam in a year; All questions answered and the patient verbalized understanding. Instructed the patient to schedule annual exam in a year (2) Vulvovaginitis: Code(s): N76.0 - Acute vaginitis Category: Medical Plan: GC and chlamydia cultures with BV panel taken. Per CDC recommendation, will screen for STI, HepBs Ag, HIV, RPR, Hep C Ab ordered. Will treat with Flagyl 500 mg p.o. b.i.d. x 7 days, Instructions given to the patient to refrain from sexual activity or to use condoms consistently and correctly during the BV treatment regimen, not to douch, it might increase the risk for relapse, and to call if symptoms persist or recur. Orders: Orders Hepatitis B Surface Antigen Today B96.89 - Other specified bacterial agents as the cause of diseases classified elsewhere, N76.0 - Acute vaginitis Syphilis Screen Today B96.89 - Other specified bacterial agents as the cause of diseases classified elsewhere, N76.0 - Acute vaginitis Hepatitis C Antibody Today B96.89 - Other specified bacterial agents as the cause of diseases classified elsewhere, N76.0 - Acute vaginitis HIV Ab/Ag Today B96.89 - Other specified bacterial agents as the cause of diseases classified elsewhere, N76.0 - Acute vaginitis Medications: New metronidazole 500 mg PO BID 14 tabs 0RF 7 days Coding Level of Care Code Est Pt Level 3 (61813) Est Pt Prev Care 18-39y(94426) Diagnoses Well woman exam Z01.419 Vulvovaginitis N76.0
[2025-03-11 09:15] VITALS: BP 122/74; BMI 21.9
--- OUTSIDE RECORDS SUMMARY | 2025-03-11 11:30 | XMS_ITS | Encounter Summary ---
Author Organization [facility] Address [address] [place], [place] [address] Phone Care Team Providers Care Wood Fuel Pelletizer Name Role Phone Cathie Benavidez MD Primary Care Provider [phone] Encounter Details Date Type Department Care Team (Late st Contact Info) Description 09/08/2016 Documentation [facility] [place] Family Medicine [address] [place] [address] Family Medicine, Physician [address] [place], [place] [phone] Social History Tobacco Use Types Packs/Day Years [...] on filedocumented in this encounter Care Teams Wood Fuel Pelletizer Relationship Specialty Start Date End Date Cathie Benavidez MD [address] [place] [address] PCP - General Pediatrics 08/14/19 10/11/22 documented as of this encounter
--- OUTSIDE RECORDS SUMMARY | 2025-03-11 11:30 | XMS_ITS | Encounter Summary ---
Author Organization [facility] Address [address] [place], [place] [address] Phone Care Team Providers Care Milling Machinist Name Role Phone Cathie Benavidez MD Primary Care Provider [phone] Encounter Details Date Type Department Care Team (Late st Contact Info) Description 10/03/2016 Documentation [facility] [place] [address] [place] [address] Family Medicine, Physician [address] [place] [phone] Social History Tobacco Use Types Packs/Day Years [...] on filedocumented in this encounter Care Teams Milling Machinist Relationship Specialty Start Date End Date Cathie Benavidez MD [address] [place] [address] PCP - General Pediatrics 08/14/19 10/11/22 documented as of this encounter
--- OUTSIDE RECORDS SUMMARY | 2025-03-11 11:30 | XMS_ITS | Clinical Summary ---
Author Organization [facility] Address [address] [place] [address] Phone Care Team Providers Care Water Fitness Instructor Name Role Phone Unavailable Primary Care Provider [...] was diagnosed with pelvic congestive syndrome [place] [facility] [place]. Oneal not yet been evaluated by INDUSTRIAL RETROFIT DESIGNER. First episode 07/2019: - 08/14/2019: In ED CT abd/pelvis with IV contrast normal. Chemistries icnluding lipase, cbc normal. HCG neg. - 08/17/2019 Diagnosed in the office with PID and treated. G/C negative. Transvaginal ultrasound was normal. D iagnosed with constipation, treated with miralax. - 08/20/2019 Sent back to ED by INDUSTRIAL RETROFIT DESIGNER, second transvaginal U/S was done. - 08/29/2019: [...] metronidazole. She did have an ultrasound at [facility] on 04/29 and has not heard results - 05/04/2020: Office visit here in extreme pain, sent Back to ED where she left without completing her visit. 07/23/2020: Labs and KUB normal. 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 U/S normal except prominent pelvic vasculature. Suggest INDUSTRIAL RETROFIT DESIGNER referral. 11/26/2020 (age 20yr): : admitted to [facility] 11/18/2020 - 11/12/2020 for 5 days of severe abdominal pain. Initiated treatment for presumed PID, no other diagnosis made, treated wit abx. GC/chlam neg. Missed INDUSTRIAL RETROFIT DESIGNER appointment. Assessment & Plan (12/03/2020 9:13 AM EDT): 12/03/2020 (age 20yr): vag probe from yesterday positive for yeast. With pt on antibiotics for PID and having symptoms of vaginitis, I recommend treatment. I will call in [facility] for her. I left a message [...] was diagnosed with pelvic congestive syndrome at [facility] 10/[place]. Oneal not yet been evaluated by INDUSTRIAL RETROFIT DESIGNER. Feeling better today after recent admission to [facility] where she was treated for PID. - Recommend reschedule with INDUSTRIAL RETROFIT DESIGNER, be persistent about getting appt and confirming appt time. - Recommend adult primary care as Petr is starting to have adult medical issues and may be needing more position classification specialist care going forward. Assessment & Plan [...] nd well Other Family history of Sudden /MA under 55, Family history of Asthma, No [...] 04/30/2017, 09/2003, 09/28/2000 Procedures * Due to [place] state law, this organization might not be sharing sensitive test results. Procedure Name Priority Date/Time Associated Diagnosis Comments CHLAMYDIA AND GONORRHEA, AMPLIFIED Routine 05/05/2020 4:29 PM EST Screening examination for bacterial and spirochetal disease from Last 3 Months or Most Recently Relevant to Health Maintenance Results * Due to [place] state law, this organization might not be sharing sensitive test results. * Chlamydia and Gonorrhoea, Amplified (05/05/2020 4:29 PM EST) Chlamydia Trachomatis, DNA Probe NOT DETECTED (NEG) [facility] Comment:Reference range: NOT DETECTED URINE GC AMP PROBE NOT DETECTED (NEG) [facility] Comment: Reference range: NOT DETECTED (NOTE) The analytical performance characteristics of this assay, when used to test SurePath(TM) specimens have been determined by [facility]. The modifications have not been cleared or approved by the FDA. This assay has been validated pursuant to the CLIA regulations and is used for clinical purposes. = For additional information, please refer to https://education.LawDeck/faq/CNM718 (This link is being provided for information/ educational purposes only.) = Test Performed by: [facility], [address] [place] [address]. [id number]. Ambulatory Care: Gil Newberry MD. Testing performed or reported by [facility], a Service of [facility], [facility] [place] [address] Baljit Faith MD, Front Office Assistant Urine 05/05/2020 4:29 PM EST 05/05/2020 7:26 PM EST Cathie Benavidez MD LAB MICROBIOLOGY - GENERAL OR DERABLES Final Result [facility] from Last 3 Months or Most Recently Relevant to Health Maintenance Insurance [facility] NON PCC
--- OUTSIDE RECORDS SUMMARY | 2025-03-11 11:30 | XMS_ITS | Patient Health Record ---
Author Organization [facility] Address [address] [place] [address] Care Team Providers Care Peanut Shaker Name Role Phone Neel Duque MD Primary Care Provider Paul Cortes Jr Unavailable Allergies No Known Allergies Results Component Value Reference Range Notes GI PANEL Reviewed date:03/14/2024 11:09:52 AM Interpretation: Performing Lab:[facility], [address] [place] [phone] Notes/Report: Campylobacter Not Detected Not Detect. Plesiomonas [...] is performed by Multiplexed PCR, utilizing the M[place]io Array. Complete Blood Count Auto Di ff Reviewed date:03/14/2024 10:11:46 AM Interpretation: Performing Lab:[facility], [address] [place] [phone] Notes/Report: White Blood Count 6.2 4.8-10.8 X10*3/uL [...] Panel Reviewed date:03/14/2024 10:10:20 AM Interpretation: Performing Lab:[facility], [address] [place] [phone] Notes/Report: Bilirubin Total 0.4 0.0-1.0 mg/dL Bilirubin Direct 0.2 0.0-0.5 mg/dL Aspartate Amino Transferase 18 5-31 U/L Alanine Aminotransferase 13 0-31 U/L Total Protein 7.5 6.5-8.0 g/dL Albumin Level 4.6 3.5-5.0 g/dL Alkaline Phosphatase 69 39-117 U/L Lipase Reviewed date:03/14/2024 10:10:12 AM Interpretation: Performing Lab:[facility], [address] [place] [phone] Notes/Report: Lipase 16 8-78 U/L TSH reflex Free T4 Reviewed date:03/14/2024 10:10:04 AM Interpretation: Performing Lab:[facility], [address] [place] [phone] Notes/Report: TSH reflex Free T4 0.54 0.32-4.0 uIU/mL Leukocytes Stool Qualitative Reviewed date:03/14/2024 11:09:45 AM Interpretation: Performing Lab:[facility], [address] [place] [phone] Notes/Report: Leukocytes Stool Qualitative NEGATIVE NEGATIVE Ova and Parasite Reviewed date:03/21/2024 09:47:12 AM Interpretation: Performing Lab:[facility], [address] [place] [phone] Notes/Report: Ova and Parasite SEE NOTE OVA AND PARASITES, CONC AND PERM SMEAR Micro Number: [id number] Test Status: Final Specimen Source: Stool Specimen Quality: Adequate CONCENTRATION 1: No ova or parasites seen TRICHROME 1: No ova or parasites seen Routine Ova and Parasite exam may not detect some parasites that occasionally cause diarrheal illness. Cryptosporidium Antigen and/or Cyclospora Isospora Exam may be ordered to detect these parasites. For additional information, please refer to https://VirtualLogix.Taomee/faq/NBN764 (This link is being provided for informational/ educational purposes only.) THIS TEST WAS PERFORMED AT: [facility] [address] [phone] RAKESH DIAL MD Reason For Referral No [...] Problem Status W/U Status Risk Notes Problem [id number] Epigastric pain (R10.13) Active confirmed Problem [id number] Change in bowel habits (R19.4) Active confirmed Problem [id number] Gastroesophageal reflux disease, unspecified whether esophagitis present (K21.9) Active confirmed Vital Signs Temperature 97.1 degrees Fahrenheit 09/09/2024 Blood pressure diastolic 01 mm Hg 09/09/2024 Height 63 in 09/09/2024 Blood pressure systolic 001 mm Hg 09/09/2024 Weight 127.2 lbs 09/09/2024 BMI 22.53 kg/m2 09/09/2024 Encounters Encounter Location Date Provider Diagnosis [facility] [address] [place] [address] 03/11/2024 Paul Lu Jr Gastroesophageal reflux disease, unspecified whether esophagitis present K21.9 and Change in bowel habits R19.4 [facility] [address] [place] [address] 09/09/2024 Paul Lu Jr Gastroesophageal reflux disease, unspecified whether esophagitis present K21.9 and Change in bowel habits R19.4 [facility] [address] [place] [address] 03/14/2024 Paul Lu Jr Assessments Encounter Date [...] treatment of this today. She will continue svdb-ecn-yamt ter simethicone. Follow-up will be in 1 [...] treatment of this today. She will continue amte-cof-ztmd ter simethicone. Follow-up will be in 1 year. Plan Of Treatment Pending Test Test Name Order Date LIVER PROFILE 03/11/2024 LIPASE 03/11/2024 CBC w/o DIFF 03/11/2024 STOOL WBC 03/11/2024 OVA & PARASITES (O&P) 03/11/2024 TSH REFLEX FREE T4 03/11/2024 Future Test Test Name Order Date COLONOSCOPY 03/06/2023 UPPER GI ENDOSCOPY 10/25/2023 Next Appt Details Provider Name:Paul savage , 09/10/2025 10:20:00 AM, [address] [place] [address], [facility] [address], [place], [address], Insurance Providers Payer Name Payer Address Payer Phone Subscriber Number Group Number Insured Name Patient Relationship to Insured Coverage Start Date Coverage End Date [facility] [address] [address] [place], [place] [id number] [id number] Self - patient is the [...]
--- OUTSIDE RECORDS SUMMARY | 2025-03-11 11:30 | XMS_ITS | Encounter Summary ---
Author Organization [facility] Address [address] [place] [address] Phone Care Team Providers Care Welding Machine Operator Electro Gas Name Role Phone Cathie Benavidez MD Primary Care Provider [phone] Encounter Details Date Type Department Care Team (Late st Contact Info) Description 02/09/2017 Conversion Encounter [facility] [place] [address] [place] [address] Social History Tobacco Use Types Packs/Day Years [...] on filedocumented in this encounter Care Teams Welding Machine Operator Electro Gas Relationship Specialty Start Date End Date Cathie Benavidez MD [address] [place] [address] PCP - General Pediatrics 08/14/19 10/11/22 documented as of this encounter
--- OUTSIDE RECORDS SUMMARY | 2025-03-11 11:30 | XMS_ITS | Encounter Summary ---
Author Organization [facility] Address [address] [place], [place] [address] Phone Care Team Providers Care Cpc Name Role Phone Cathie Benavidez MD Primary Care Provider [phone] Encounter Details Date Type Department Care Team (Late st Contact Info) Description 11/07/2016 Documentation [facility] [place] Family Medicine [address] [place] [address] Family Medicine, Physician [address] [place], [place] [phone] Social History Tobacco Use Types Packs/Day Years [...] on filedocumented in this encounter Care Teams Cpc Relationship Specialty Start Date End Date Cathie Benavidez MD [address] [place] [address] PCP - General Pediatrics 08/14/19 10/11/22 documented as of this encounter
--- OUTSIDE RECORDS SUMMARY | 2025-03-11 11:30 | XMS_ITS | Encounter Summary ---
Author Organization [facility] Address [address] [place], [place] [address] Phone Care Team Providers Care Bunch Breaker Machine Operator Name Role Phone Cathie Benavidez MD Primary Care Provider [phone] Encounter Details Date Type Department Care Team (Late st Contact Info) Description 12/09/2015 Documentation [facility] [place] [address] [place] [address] Family Medicine, Physician [address], [place] [phone] Social History Tobacco Use Types Packs/Day Years [...] on filedocumented in this encounter Care Teams Bunch Breaker Machine Operator Relationship Specialty Start Date End Date Cathie Benavidez MD [address] [place] [address] PCP - General Pediatrics 08/14/19 10/11/22 documented as of this encounter
--- OUTSIDE RECORDS SUMMARY | 2025-03-11 11:30 | XMS_ITS | Encounter Summary ---
Author Organization [facility] Address [address] [place] [address] Phone Care Team Providers Care Biology Adjunct Instructor Name Role Phone Cathie Benavidez MD Primary Care Provider [phone] Encounter Details Date Type Department Care Team (Late st Contact Info) Description 02/09/2017 Documentation [facility] [place] [address] [place] [address] Family Medicine, Physician [address] [place], [place] [phone] Social History Tobacco Use Types Packs/Day Years [...] on filedocumented in this encounter Care Teams Biology Adjunct Instructor Relationship Specialty Start Date End Date Cathie Benavidez MD [address] [place] [address] PCP - General Pediatrics 08/14/19 10/11/22 documented as of this encounter
--- OUTSIDE RECORDS SUMMARY | 2025-03-11 11:30 | XMS_ITS | Encounter Summary ---
Author Organization [facility] Address [address] [place] [address] Phone Care Team Providers Care Automated Equipment Engineer Technician Name Role Phone Cathie Benavidez MD Primary Care Provider [phone] Encounter Details Date Type Department Care Team (Late st Contact Info) Description 02/09/2017 Documentation [facility] [place] Family Medicine [address] [place] [address] Family Medicine, Physician [address], [place] [phone] Social History Tobacco Use Types Packs/Day Years [...] on filedocumented in this encounter Care Teams Automated Equipment Engineer Technician Relationship Specialty Start Date End Date Cathie Benavidez MD [address] [place] [address] PCP - General Pediatrics 08/14/19 10/11/22 documented as of this encounter
--- OUTSIDE RECORDS SUMMARY | 2025-03-11 11:30 | XMS_ITS | Encounter Summary ---
Author Organization [facility] Address [address] [place], [place] [address] Phone Care Team Providers Care Customs Officer Name Role Phone Cathie Benavidez MD Primary Care Provider [phone] Encounter Details Date Type Department Care Team (Late st Contact Info) Description 11/07/2016 Documentation [facility] [place] Family Medicine [address] [place] [address] Family Medicine, Physician [address] [place], [place] [phone] Social History Tobacco Use Types Packs/Day Years [...] on filedocumented in this encounter Care Teams Customs Officer Relationship Specialty Start Date End Date Cathie Benavidez MD [address] [place] [address] PCP - General Pediatrics 08/14/19 10/11/22 documented as of this encounter
--- OUTSIDE RECORDS SUMMARY | 2025-03-11 11:30 | XMS_ITS | Encounter Summary ---
Author Organization [facility] Address [address] [place], [place] [address] Phone Care Team Providers Care Pluck Separator Name Role Phone Cathie Benavidez MD Primary Care Provider [phone] Encounter Details Date Type Department Care Team (Late st Contact Info) Description 12/09/2015 Documentation [facility] [place] [address] [place] [address] Family Medicine, Physician [address] [place], [place] [phone] Social History Tobacco Use Types Packs/Day Years [...] on filedocumented in this encounter Care Teams Pluck Separator Relationship Specialty Start Date End Date Cathie Benavidez MD [address] [place] [address] PCP - General Pediatrics 08/14/19 10/11/22 documented as of this encounter
--- OUTSIDE RECORDS SUMMARY | 2025-03-11 11:31 | XMS_ITS | Encounter Summary ---
Author Organization [facility] Address [address] [place], [place] [address] Phone Care Team Providers Care Tipple Operator Name Role Phone Cathie Benavidez MD Primary Care Provider [phone] Encounter Details Date Type Department Care Team (Late st Contact Info) Description 09/08/2016 Documentation [facility] [place] Family Medicine [address] [place] [address] Family Medicine, Physician [address] [place], [place] [phone] Social History Tobacco Use Types Packs/Day Years [...] on filedocumented in this encounter Care Teams Tipple Operator Relationship Specialty Start Date End Date Cathie Benavidez MD [address] [place] [address] PCP - General Pediatrics 08/14/19 10/11/22 documented as of this encounter
--- OUTSIDE RECORDS SUMMARY | 2025-03-11 11:31 | XMS_ITS | Encounter Summary ---
Author Organization [facility] Address [address] [place], [place] [address] Phone Care Team Providers Care Shoe Repairer Apprentice Name Role Phone Cathie Benavidez MD Primary Care Provider [phone] Encounter Details Date Type Department Care Team (Late st Contact Info) Description 08/11/2016 Documentation [facility] [place] [address] [place] [address] Family Medicine, Physician [address], [place] [phone] Social History Tobacco Use Types Packs/Day Years [...] on filedocumented in this encounter Care Teams Shoe Repairer Apprentice Relationship Specialty Start Date End Date Cathie Benavidez MD [address] [place] [address] PCP - General Pediatrics 08/14/19 10/11/22 documented as of this encounter
--- OUTSIDE RECORDS SUMMARY | 2025-03-11 11:31 | XMS_ITS | Encounter Summary ---
Author Organization [facility] Address [address] [place], [place] [address] Phone Care Team Providers Care Speedboat Operator Name Role Phone Cathie Benavidez MD Primary Care Provider [phone] Encounter Details Date Type Department Care Team (Late st Contact Info) Description 07/22/2016 [place]ation [facility] [place] [address] [place] [address] Family Medicine, Physician [address] [place], [place] [phone] Social History Tobacco Use Types Packs/Day Years [...] on filedocumented in this encounter Care Teams Speedboat Operator Relationship Specialty Start Date End Date Cathie Benavidez MD [address] [place] [address] PCP - General Pediatrics 08/14/19 10/11/22 documented as of this encounter
--- OUTSIDE RECORDS SUMMARY | 2025-03-11 11:31 | XMS_ITS | Encounter Summary ---
Author Organization [facility] Address [address] [place], [place] [address] Phone Care Team Providers Care Buckle Coverer Name Role Phone Cathie Benavidez MD Primary Care Provider [phone] Encounter Details Date Type Department Care Team (Late st Contact Info) Description 06/06/2016 Documentation [facility] [place] [address] [place] [address] Family Medicine, Physician [address] [place], [place] [phone] Social History Tobacco Use Types Packs/Day Years [...] on filedocumented in this encounter Care Teams Buckle Coverer Relationship Specialty Start Date End Date Cathie Benavidez MD [address] [place] [address] PCP - General Pediatrics 08/14/19 10/11/22 documented as of this encounter
== END 2025-03-11 10:07 | disposition home or self-care (01) ==
LOC: HO.HWS 09:12
PROVIDERS: PCP Internal Medicine; Visit Provider Obstetrics & Gynecology
DX: Z01.419 Encounter for gynecological examination (general) (routine) without abnormal findings (principal); N76.0 Acute vaginitis
CPT/HCPCS: 99213; 99395; 99459

== ENCOUNTER 2025-03-15 09:41 | Outpatient (REF) | payer OTHER, SELFPAY ==
--- OUTSIDE RECORDS SUMMARY | 2023-11-14 08:30 | XMS_ITS ---
Author Organization [facility] Address [address] [place] [address] [place] [phone] Care Team Providers Care Celebrity Chef Entrepreneur Media Personality Name Role Phone Neel Duque MD Primary Care Provider Paul Cortes Jr REASON FOR VISIT epigastric pain Encounters Encounter Location Date Provider Diagnosis [facility] Outpatient [address] [place] [id number] 11/14/2023 Paul Lu Jr Epigastric pain R10.13 Assessments Encounter Date Diagnosis (ICD Code) Assessment Notes Treatment Notes Treatment Clinical Notes Section Notes 11/14/2023 Epigastric pain (ICD-10 - R10.13) Plan Of Treatment Next Appt Details Provider Name:Paul savage Jr, 09/10/2025 10:20:00 AM, [address] [place] [address], Suite [facility], [place], [address], Progress Notes * JOSIAH BALLB:[birth year] (24 yo F)Acc No.[id number]:11/14/2023 EGD/MAC Patient: Vick BERGERON IFEOMA Provider: Chavez Lu MD :2000 A ge:23 Y S ex:Female Date:11/14/2023 Address:[address] [place] [address] [place], [place] Pcp:Neel Duque MD Subjective: * Chief Complaints: [...] 11/14/2023 Generated for Shalini nunez/Amber/Kerryitting on: 0 03/15/2025 09:43 AM EDT
--- NOTE | ~2025-03-15 | CT_ITS ---
CLINICAL HISTORY: R55 - Syncope and collapse CT head without contrast Comparison: None provided Findings: No intra-axial mass, midline shift, hydrocephalus, or acute hemorrhage. No significant atrophy-like change or white matter disease. There is no sinus or mastoid fluid. The orbits are unremarkable. No skull fracture. IMPRESSION: 1. No acute intracranial findings. This document has been electronically signed by: Joshua Rodriguez MD on 03/17/2025 12:19:28
--- OUTSIDE RECORDS SUMMARY | 2025-03-15 09:44 | XMS_ITS | Encounter Summary ---
Author Organization [facility] Address [address] [place], [place] [address] Phone Care Team Providers Care Wind Projects Supervisor Name Role Phone Cathie Benavidez MD Primary Care Provider [phone] Encounter Details Date Type Department Care Team (Late st Contact Info) Description 11/07/2016 Documentation [facility] [place] Family Medicine [address] [place] [address] Family Medicine, Physician [address], [place] [phone] Social History Tobacco Use Types Packs/Day Years [...] on filedocumented in this encounter Care Teams Wind Projects Supervisor Relationship Specialty Start Date End Date Cathie Benavidez MD [address] [place] [address] PCP - General Pediatrics 08/14/19 10/11/22 documented as of this encounter
--- OUTSIDE RECORDS SUMMARY | 2025-03-15 09:44 | XMS_ITS | Encounter Summary ---
Author Organization [facility] Address [address] [place] [address] Phone Care Team Providers Care Airline Ticket Agent Name Role Phone Ctahie Benavidez MD Primary Care Provider [phone] Encounter Details Date Type Department Care Team (Late st Contact Info) Description 02/09/2017 Documentation [facility] Family Medicine [address] [place] [address] Family Medicine, Physician [address] [place], [place] [phone] Social History Tobacco Use Types Packs/Day Years [...] on filedocumented in this encounter Care Teams Airline Ticket Agent Relationship Specialty Start Date End Date Cathie Benavidez MD [address] [place] [address] PCP - General Pediatrics 08/14/19 10/11/22 documented as of this encounter
--- OUTSIDE RECORDS SUMMARY | 2025-03-15 09:44 | XMS_ITS | Encounter Summary ---
Author Organization [facility] Address [address] [place], [place] [address] Phone Care Team Providers Care Parts Cataloguer Name Role Phone Cathie Benavidez MD Primary Care Provider [phone] Encounter Details Date Type Department Care Team (Late st Contact Info) Description 12/09/2015 Documentation [facility] [place] Family Medicine [address] [place] [address] Family Medicine, Physician [address] [place], [place] [phone] Social History Tobacco Use Types Packs/Day Years [...] on filedocumented in this encounter Care Teams Parts Cataloguer Relationship Specialty Start Date End Date Cathie Benavidez MD [address] [place] [address] PCP - General Pediatrics 08/14/19 10/11/22 documented as of this encounter
--- OUTSIDE RECORDS SUMMARY | 2025-03-15 09:44 | XMS_ITS | Encounter Summary ---
Author Organization [facility] Address [address] [place], [place] [address] Phone Care Team Providers Care Transportation Program Director Name Role Phone Cathie Benavidez MD Primary Care Provider [phone] Encounter Details Date Type Department Care Team (Late st Contact Info) Description 09/08/2016 Documentation [facility] [place] [address] [place] [address] Family Medicine, Physician [address] [place], [place] [phone] Social History Tobacco Use Types Packs/Day Years [...] on filedocumented in this encounter Care Teams Transportation Program Director Relationship Specialty Start Date End Date Cathie Benavidez MD [address] [place] [address] PCP - General Pediatrics 08/14/19 10/11/22 documented as of this encounter
--- OUTSIDE RECORDS SUMMARY | 2025-03-15 09:44 | XMS_ITS | Encounter Summary ---
Author Organization [facility] Address [address] [place], [place] [address] Phone Care Team Providers Care Commercial Lines Insurance Agent Name Role Phone Cathie Benavidez MD Primary Care Provider [phone] Encounter Details Date Type Department Care Team (Late st Contact Info) Description 09/08/2016 Documentation [facility] [place] [address] [place] [address] Family Medicine, Physician [address] [place], [place] [phone] Social History Tobacco Use Types Packs/Day Years [...] on filedocumented in this encounter Care Teams Commercial Lines Insurance Agent Relationship Specialty Start Date End Date Cathie Benavidez MD [address] [place] [address] PCP - General Pediatrics 08/14/19 10/11/22 documented as of this encounter
--- OUTSIDE RECORDS SUMMARY | 2025-03-15 09:44 | XMS_ITS | Encounter Summary ---
Author Organization [facility] Address [address] [place], [place] [address] Phone Care Team Providers Care Vending Machine Coin Collector Name Role Phone Cathie Benavidez MD Primary Care Provider [phone] Encounter Details Date Type Department Care Team (Late st Contact Info) Description 08/11/2016 Documentation [facility] [place] [address] [place] [address] Family Medicine, Physician [address] [place], [place] [phone] Social History Tobacco Use Types Packs/Day Years [...] on filedocumented in this encounter Care Teams Vending Machine Coin Collector Relationship Specialty Start Date End Date Cathie Benavidez MD [address] [place] [address] PCP - General Pediatrics 08/14/19 10/11/22 documented as of this encounter
--- OUTSIDE RECORDS SUMMARY | 2025-03-15 09:44 | XMS_ITS | Encounter Summary ---
Author Organization [facility] Address [address] [place], [place] [address] Phone Care Team Providers Care Recyclable Materials Collector Name Role Phone Cathie Benavidez MD Primary Care Provider [phone] Encounter Details Date Type Department Care Team (Late st Contact Info) Description 10/03/2016 Documentation [facility] [place] Medicine [address] [place] [address] Family Medicine, Physician [address] [place], [place] [phone] Social History Tobacco Use Types Packs/Day Years [...] on filedocumented in this encounter Care Teams Recyclable Materials Collector Relationship Specialty Start Date End Date Cathie Benavidez MD [address] [place] [address] PCP - General Pediatrics 08/14/19 10/11/22 documented as of this encounter
--- OUTSIDE RECORDS SUMMARY | 2025-03-15 09:44 | XMS_ITS | Encounter Summary ---
Author Organization [facility] Address [address] [place], [place] [address] Phone Care Team Providers Care Painter And Grader Cork Name Role Phone Cathie Benavidez MD Primary Care Provider [phone] Encounter Details Date Type Department Care Team (Late st Contact Info) Description 12/09/2015 Documentation [facility] [place] Family Medicine [address] [place] [address] Family Medicine, Physician [address] [place], [place] [phone] Social History Tobacco Use Types Packs/Day Years [...] on filedocumented in this encounter Care Teams Painter And Grader Cork Relationship Specialty Start Date End Date Cathie Benavidez MD [address] [place] [address] PCP - General Pediatrics 08/14/19 10/11/22 documented as of this encounter
--- OUTSIDE RECORDS SUMMARY | 2025-03-15 09:44 | XMS_ITS | Encounter Summary ---
Author Organization [facility] Address [address] [place] [address] Phone Care Team Providers Care Ribbon Tier Name Role Phone Cathie Benavidez MD Primary Care Provider [phone] Encounter Details Date Type Department Care Team (Late st Contact Info) Description 02/09/2017 Documentation [facility] [place] [address] [place] [address] Family Medicine, Physician [address] [place], [place] [phone] Social History Tobacco Use Types Packs/Day Years [...] on filedocumented in this encounter Care Teams Ribbon Tier Relationship Specialty Start Date End Date Cathie Benavidez MD [address] [place] [address] PCP - General Pediatrics 08/14/19 10/11/22 documented as of this encounter
--- OUTSIDE RECORDS SUMMARY | 2025-03-15 09:44 | XMS_ITS | Encounter Summary ---
Author Organization [facility] Address [address] [place], [place] [address] Phone Care Team Providers Care Electrolytic De Scaler Name Role Phone Cathie Benavidez MD Primary Care Provider [phone] Encounter Details Date Type Department Care Team (Late st Contact Info) Description 06/06/2016 Documentation [facility] [place] [address] [place] [address] Family Medicine, Physician [address] [place], [place] [phone] Social History Tobacco Use Types Packs/Day Years [...] on filedocumented in this encounter Care Teams Electrolytic De Scaler Relationship Specialty Start Date End Date Cathie Benavidez MD [address] [place] [address] PCP - General Pediatrics 08/14/19 10/11/22 documented as of this encounter
--- OUTSIDE RECORDS SUMMARY | 2025-03-15 09:44 | XMS_ITS | Patient Health Record ---
Author Organization [facility] Address [address] [place] [address] Care Team Providers Care Senior Officer Name Role Phone Neel Duque MD Primary Care Provider Paul Cortes Jr Unavailable Allergies No Known Allergies Reason For Referral No Information Medications Medication [...] Problem Status W/U Status Risk Notes Problem 93318643 Epigastric pain (R10.13) Active confirmed Problem 65902547 Change in bowel habits (R19.4) Active confirmed Problem [id number] Gastroesophageal reflux disease, unspecified whether esophagitis present (K21.9) Active confirmed Vital Signs Temperature 97.1 degrees Fahrenheit 09/09/2024 Blood pressure diastolic 01 mm Hg 09/09/2024 Height 63 in 09/09/2024 Blood pressure systolic 001 mm Hg 09/09/2024 Weight 127.2 lbs 09/09/2024 BMI 22.53 kg/m2 09/09/2024 Encounters Encounter Location Date Provider Diagnosis [facility] [address] [place] [address] 09/09/2024 Paul Lu Jr Gastroesophageal reflux disease, [...] treatment of this today. She will continue iaxk-gjf-tze nter simethicone. Follow-up will be in 1 [...] treatment of this today. She will continue aenq-ihu-zqh nter simethicone. Follow-up will be in 1 year. Plan Of Treatment Pending Test Test Name Order Date LIVER PROFILE 03/11/2024 LIPASE 03/11/2024 CBC w/o DIFF 03/11/2024 STOOL WBC 03/11/2024 OVA & PARASITES (O&P) 03/11/2024 TSH REFLEX FREE T4 03/11/2024 Future Test Test Name Order Date COLONOSCOPY 03/06/2023 UPPER GI ENDOSCOPY 10/25/2023 Next Appt Details Provider Name:Paul Donte savage Jr, 09/10/2025 10:20:00 AM, [address] [place] [address], [address], [place], [address], Insurance Providers Payer Name Payer Address Payer Phone Subscriber Number Group Number Insured Name Patient Relationship to Insured Coverage Start Date Coverage End Date [facility] [address] [address] [place], [place] [id number] [id number] Self - patient is the [...]
--- OUTSIDE RECORDS SUMMARY | 2025-03-15 09:44 | XMS_ITS | Encounter Summary ---
Author Organization [facility] Address [address] [place], [place] [address] Phone Care Team Providers Care Riveting Machine Operator Name Role Phone Cathie Benavidez MD Primary Care Provider [phone] Encounter Details Date Type Department Care Team (Late st Contact Info) Description 11/07/2016 Documentation [facility] [place] Family Medicine [address] [place] [address] Family Medicine, Physician [address] [place], [place] [phone] Social History Tobacco Use Types Packs/Day Years [...] on filedocumented in this encounter Care Teams Riveting Machine Operator Relationship Specialty Start Date End Date Cathie Benavidez MD [address] [place] [address] PCP - General Pediatrics 08/14/19 10/11/22 documented as of this encounter
--- OUTSIDE RECORDS SUMMARY | 2025-03-15 09:44 | XMS_ITS | Clinical Summary ---
Author Organization [facility] Address [address] [place] [address] Phone Care Team Providers Care Emergency Veterinarian Name Role Phone Unavailable Primary Care Provider [...] was diagnosed with pelvic congestive syndrome [place] [facility] [place] Oneal not yet been evaluated by INDUSTRIAL ENGINEERING TECHNICIAN. First episode 07/2019: - 08/14/2019: In ED CT abd/pelvis with IV contrast normal. Chemistries icnluding lipase, cbc normal. HCG neg. - 08/17/2019 Diagnosed in the office with PID and treated. G/C negative. Transvaginal ultrasound was normal. D iagnosed with constipation, treated with miralax. - 08/20/2019 Sent back to ED by INDUSTRIAL ENGINEERING TECHNICIAN, second transvaginal U/S was done. - 08/29/2019: [...] metronidazole. She did have an ultrasound at [facility] on 04/29 and has not heard results - 05/04/2020: Office visit here in extreme pain, sent Back to ED where she left without completing her visit. 07/23/2020: Labs and KUB normal. 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 U/S normal except prominent pelvic vasculature. Suggest INDUSTRIAL ENGINEERING TECHNICIAN referral. 11/26/2020 (age 20yr): : admitted to [facility] 11/18/2020 - 11/12/2020 for 5 days of severe abdominal pain. Initiated treatment for presumed PID, no other diagnosis made, treated wit abx. GC/chlam neg. Missed INDUSTRIAL ENGINEERING TECHNICIAN appointment. Assessment & Plan (12/03/2020 9:13 AM EDT): 12/03/2020 (age 20yr): vag probe from yesterday positive for yeast. With pt on antibiotics for PID and having symptoms of vaginitis, I recommend treatment. I will call in [facility] for her. I left a [...] was diagnosed with pelvic congestive syndrome at [facility] [place]. Onela not yet been evaluated by INDUSTRIAL ENGINEERING TECHNICIAN. Feeling better today after recent admission to [facility] where she was treated for PID. - Recommend reschedule with INDUSTRIAL ENGINEERING TECHNICIAN, be persistent about getting appt and confirming appt time. - Recommend adult primary care as Petr is starting to have adult medical issues and may be needing more branch specialist care going forward. Assessment & Plan [...] nd well Other Family history of Sudden /NE under 55, Family history of Asthma, No [...] 09/2003, 09/28/2000 Procedures * Due to [place] state law, this organization might not be sharing sensitive test results. Procedure Name Priority Date/Time Associated Diagnosis Comments CHLAMYDIA AND GONORRHEA, AMPLIFIED Routine 05/05/2020 4:29 PM EST Screening examination for bacterial and spirochetal disease from Last 3 Months or Most Recently Relevant to Health Maintenance Results * Due to [place] state law, this organization might not be sharing sensitive test results. * Chlamydia and Gonorrhoea, Amplified (05/05/2020 4:29 PM EST) Chlamydia Trachomatis, DNA Probe NOT DETECTED (NEG) [facility] Comment:Reference range: NOT DETECTED URINE GC AMP PROBE NOT DETECTED (NEG) [facility] Comment: Reference range: NOT DETECTED (NOTE) The analytical performance characteristics of this assay, when used to test SurePath(TM) specimens have been determined by [employer]. The modifications have not been cleared or approved by the FDA. This assay has been validated pursuant to the CLIA regulations and is used for clinical purposes. = For additional information, please refer to https://education.[employer]/faq/GMV024 (This link is being provided for information/ educational purposes only.) = Test Performed by: [employer] [facility], [address] [place] [address]. [id number]. Manager Personnel Selection: Gil Newberry MD. Testing performed or reported by [facility], a Service of [facility], [facility] [place] [address] Baljit Faith MD, Front Office Specialist Urine 05/05/2020 4:29 PM EST 05/05/2020 7:26 PM EST Cathie Benavidez MD LAB MICROBIOLOGY - GENERAL OR DERABLES Final Result [facility] from Last 3 Months or Most Recently Relevant to Health Maintenance Insurance [facility] NON PCC
--- OUTSIDE RECORDS SUMMARY | 2025-03-15 09:44 | XMS_ITS | Encounter Summary ---
Author Organization [facility] Address [address] [place], [place] [address] Phone Care Team Providers Care Residential Mortgage Manager Name Role Phone Cathie Benavidez MD Primary Care Provider [phone] Encounter Details Date Type Department Care Team (Late st Contact Info) Description 07/22/2016 Documentation [facility] [place] [address] [place] [address] Family Medicine, Physician [address] [place], [place] [phone] Social History Tobacco Use Types Packs/Day Years [...] on filedocumented in this encounter Care Teams Residential Mortgage Manager Relationship Specialty Start Date End Date Cathie Benavidez MD [address] [place] [address] PCP - General Pediatrics 08/14/19 10/11/22 documented as of this encounter
--- OUTSIDE RECORDS SUMMARY | 2025-03-15 09:44 | XMS_ITS | Encounter Summary ---
Author Organization [facility] Address [address] [place] [address] Phone Care Team Providers Care Senior Rd Engineer Name Role Phone Cathie Benavidez MD Primary Care Provider [phone] Encounter Details Date Type Department Care Team (Late st Contact Info) Description 02/09/2017 Conversion Encounter [facility] [place] [address] [place] [address] Social History Tobacco Use Types Packs/Day Years [...] on filedocumented in this encounter Care Teams Senior Rd Engineer Relationship Specialty Start Date End Date Cathie Benavidez MD [address] [place] [address] PCP - General Pediatrics 08/14/19 10/11/22 documented as of this encounter
== END 2025-03-15 09:42 | disposition home or self-care (01) ==
LOC: HO.CT 09:41
PROVIDERS: PCP Internal Medicine; Visit Provider Internal Medicine
DX: R55 Syncope and collapse (principal)
CPT/HCPCS: 70450

== ENCOUNTER → 2025-03-15 09:42 | Outpatient (BNV) | payer OTHER, SELFPAY | PROVIDERS: PCP Internal Medicine; Visit Provider Radiology Diagnostic Radiology | DX: R55 Syncope and collapse (principal) | CPT/HCPCS: 70450 ==

== ENCOUNTER 2025-03-18 15:53 | Outpatient (AMB) | payer OTHER, SELFPAY ==
--- OUTSIDE RECORDS SUMMARY | 2023-11-14 08:30 | XMS_ITS ---
Author Organization [facility] Address [address] [place] [address] [place] [address] Care Team Providers Care Musical Instrument Mechanic Name Role Phone Neel Duque MD Primary Care Provider Paul Cortes Jr REASON FOR VISIT epigastric pain Encounters Encounter Location Date Provider Diagnosis [facility] Outpatient [address] [place] [phone] 11/14/2023 Paul Lu Jr Epigastric pain R10.13 Assessments Encounter Date Diagnosis (ICD Code) Assessment Notes Treatment Notes Treatment Clinical Notes Section Notes 11/14/2023 Epigastric pain (ICD-10 - R10.13) Plan Of Treatment Next Appt Details Provider Name:Paul savage Jr, 09/10/2025 10:20:00 AM, [address] [place] [address], Suite [facility], [place], [address], Progress Notes * JOSIAH BALLB:[birth year] (24 yo F)Acc No.[id number]:11/14/2023 EGD/MAC Patient: Vick BERGERON IFEOMA Provider: Chavez Lu MD :2000 A ge:23 Y S ex:Female Date:11/14/2023 Address:[address] [place] [address] [address] [place] Pcp:Neel Duque MD Subjective: * Chief Complaints: [...] 11/14/2023 Generated for Shalini nunez/Amber/Kerryitting on: 0 03/18/2025 06:29 PM EDT
--- NOTE | 2025-03-18 15:57 | A.OFFVIS_ITS ---
Intake Visit Reasons: results Allergies Seasonal Allergies Allergy (Intermediate, Verified 03/18/25 16:06) Itchy Eyes Medication List - Last Reconciled 03/18/25 by Candi Gottlieb CNP acetaminophen 500 mg PO Q6H PRN albuterol sulfate 90 mcg/actuation (Ventolin HFA) 2 puffs inhalation Q6H PRN bisacodyl (Dulcolax (bisacodyl)) 5 mg PO BEDTIME dextrin (Fiber (dextrin)) 3 grams PO DAILY dicyclomine 10 mg PO BID ibuprofen 400 mg PO Q6H PRN metronidazole 500 mg PO BID 7 days ondansetron 4 mg PO Q8H PRN HPI Comments Details: 24-year-old woman with asthma, anxiety, migraines, and near syncopal episodes. (The most recent episode was on 01/26/2025 while outside at the [facility] where she had been using alcohol and marijuana, and had lightheaded dizziness where her vision went black. She was off balance, but did not fall, and was seen at [facility]. She has had similar episodes in the past of dizziness and loss of vision, with associated symptoms of palpitations, hot and cold flashes, and nausea, lasting few minutes up to half hour. The first episode happened in 03/2020 when taking a shower. She felt hotter than usual and vision went black. She woke up on the floor with family around her). She has family history of seizures in her mother and father, and history of headaches in father and sister. She was here with her mother and daughter for testing results. No further episodes. No episodes of dizziness or lightheadedness. She has had headaches since childhood, which have gotten worse over the last few months. She was having headache almost every other day. Pain was usually frontal, or to sides of head, throbbing-type, with photophobia, sonophobia, and nausea. She felt better if she was able to lay down in a dark, quiet room or if she was able to sleep. She has tried ibuprofen and Tylenol as needed for headaches with minimal relief. She has not tried any preventive medications. She was under some stress. Sleep was not so good. [facility] Medical History Diarrhea Acute gastroenteritis External hemorrhoids with complication Anxiety and depression Cough Cough due to LYNN inhibitor Seasonal allergies Low back pain Migraine with aura Asthma Surgical History History of salpingectomy H/O colonoscopy Family History Paternal Grandmother Breast CA Mother Crohn disease Seizure Father Migraine Seizure Brother Bipolar 1 disorder Maternal Grandmother Heart disease Maternal Aunt Colon cancer Other Mental health disorder Social History Housing: Apartment Alcohol intake: never Patient Tobacco Use Status: Never used Tobacco Tobacco use type: Cigarette Years Smoked: marijuana e-Cigarette/Vaping Use: Never Used Second Hand Smoke Exposure: No Substance Use Type: Marijuana service: No Current occupational status: employed 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 Current occupational exposures/hazards: No Sexual orientation: Straight/Heterosexual Gender identity: Female Cognitive needs: No Hearing needs: No Vision needs: No Female Reproductive History Menstrual Age of Menarche: 12 Review of Systems Const Denies chills, Denies daytime sleepiness, Denies difficulty sleeping, Reports fatigue, Denies fever(s), Denies frequent falls, Reports headache(s), Denies increased appetite, Denies poor appetite, Denies snoring, Denies weakness, Denies weight gain and Denies weight loss Eyes Denies blurry vision, Denies diplopia and Denies loss of vision ENT Reports Normal hearing present, Denies vertigo, Reports dizziness, Denies dry mouth, Denies otalgia, Reports headache(s), Denies hearing loss, Denies epistaxis, Denies nasal congestion, Denies neck pain, Denies tinnitus, Reports sinus pain and Denies sore throat Card Denies chest pain at rest, Denies chest pain with activity, Denies syncope, Denies leg edema, Denies palpitations, Denies dyspnea and Denies dyspnea on exertion Resp Denies cough, Denies dyspnea, Denies dyspnea on exertion and Denies snoring GI Reports abdominal pain, Denies constipation, Denies heartburn, Denies diarrhea, Reports nausea and Denies vomiting Denies urinary frequency, Denies nipple discharge, Denies urinary incontinence and Denies urinary urgency Musc Denies abnormal gait, Reports back pain, Denies myalgias, Denies arthralgias, Denies neck pain, Denies numbness, Denies stiffness and Denies tingling Skin/Breast Denies breast mass, Denies nipple discharge and Denies rash Neuro Reports Normal hearing present, Denies Abnormal speech present, Denies abnormal gait, Denies vertigo, Reports dizziness, Denies syncope, Denies frequent falls, Reports headache(s), Denies lack of coordination, Denies loss of vision, Denies memory loss, Denies numbness, Denies Other visual disturbances, Denies restless legs, Denies seizure-like activity, Denies tingling, Denies paresthesias, Denies tremor(s) and Denies weakness Psych Reports anxiety, Reports depression, Denies memory loss, Denies visual hallucinations and Denies hallucinations Endo Denies cold intolerance, Reports fatigue, Denies heat intolerance, Denies polydipsia, Denies polyuria and Denies palpitations Chintan/Lymph Reports easy bleeding and Reports easy bruising Physical Exam Const Other: General Appearance:? normal, in no acute distress. Heart:? S1, S2 normal, no murmurs. Lungs:? clear anteriorly and posteriorly. Musculoskeletal:? normal. Extremities:? no edema. Psych:? alert, oriented, cognitive function intact, cooperative with exam. Neuro Other: Abnormal Neurological Findings:?none.? Mental Status: alert and oriented X 3. Normal attention, orientation, memory, and affect. Cranial Nerves: Pupils are equal, round, and reactive to light. External ocular muscles are intact. Visual nguyen are full, no ptosis. Face is symmetrical, no facial weakness or droop. Facial sensations are normal. Tongue protrudes in midline. Palate elevates symmetrically. Shoulder shrugging is normal Motor Examination: Normal muscle tone, bulk and strength. No atrophy or fasciculations. No drift of the extended upper extremities. DTR 2+. Plantars are flexor. Sensory Exam: Normal light touch, temperature, pinprick, vibration, and joint- position sensations. Rhomberg sign is absent. Coordination: No ataxia. No titubation. Gait Exam: Within normal limits. Cerebellar Signs: Sfgcbk-zo-qqsf is okay. Extrapyramidal System: No tremor, rigidity with normal facial expressions. No bradykinesia. No bradyphrenia. Normal arm swing and posture. No propulsion or retropulsion. Speech: Normal. Cranial nerves: Yes Normal hearing present Speech: No Abnormal speech present Results Reviewed Results Reviewed: [address] [address] [address] Scan Report Signed Patient: Petr Connolly MR#: [id number] : 2000 Acct:[id number] Age/Sex: 24 / F ADM Date: 03/15/25 Loc: HO.CT Attending Dr: Neel Duque MD Ordering Physician: Neel Duque MD Date of Service: 03/15/25 Procedure(s): CT head/brain wo IV con Accession Number(s): [id number] cc: Neel Duque MD~ Report Number: [id number]: Total DLP = 658.00 mGy-cm Reason for Exam: R55 - Syncope and collapse CLINICAL HISTORY: R55 - Syncope and collapse CT head without contrast Comparison: None provided Findings: No intra-axial mass, midline shift, hydrocephalus, or acute hemorrhage. No significant atrophy-like change or white matter disease. There is no sinus or mastoid fluid. The orbits are unremarkable. No skull fracture. IMPRESSION: 1. No acute intracranial findings. This document has been electronically signed by: Joshua Rodriguez MD on 03/17/2025 12:19:28 Dictated By: Joshua Rodriguez MD Signed By: <Electronically signed by Joshua Rodriguez MD in OV> 03/17/[address] [address] Electroencephalogram Report Signed Patient: Petr Connolly MR#: [id number] : 2000 Acct:[id number] Age/Sex: 24 / F ADM Date: 02/26/25 Loc: HO.NEURO Attending Dr: Khadijah Obrien MD Ordering Physician: Candi Gottlieb CNP Date of Service: 02/26/25 Procedure(s): EEG electroencephalogram Accession Number(s): [id number] cc: Neel Duque MD~ Reason for Exam: R55 - Syncope and collapse Reason: Syncope and collapse History: diarrhea, acute gastroenteritis, external hemorrhoids, anxiety and depression, cough, allergies, LBP, migraine with aura, asthma Medications: acetaminophen, albuterol sulfate, bisacodyl, dextrin, dicyclomine, ibuprofen, menthol-zinc oxide, ondansetron, simethicone Technical description: Photic stimulation: completed Hyperventilation: completed Behavioral state: anxiety attack at the end of recording State of Consciousness: awake Skull defect: none Sedation: no Handedness: right ROOM 402 for reading This is a 16 channel EEG with an EKG lead. Patient is reported awake during the tracing. Background EEG rhythm is 10-12 hertz 5-200 microvolt posteriorly and lower amplitude fast anteriorly. Photic stimulation does not produce any significant abnormality. Hyperventilation is unremarkable. Cardiac lead does not reveal any significant abnormality. No sharp wave spikes or paroxysmal tendency noted. Impression: No significant abnormality noted on this EEG. Dictated By: Khadijah Obrien MD Signed By: <Electronically signed by Khadijah Obrien MD> 02/27/[address] [address] Holter Monitor Report Signed Patient: Petr Connolly MR#: [id number] : 2000 Acct:[id number] Age/Sex: 24 / F ADM Date: 02/25/25 Loc: HO.CARD Attending Dr: Candi Gottlieb CNP Ordering Physician: Candi Gottlieb CNP Date of Service: 02/25/25 Procedure(s): ECG holter monitor 48 hour Accession Number(s): cc: Candi Gottlieb CNP~ Reason for Exam: R55 - Syncope and collapse Conclusion: 1. Patient was monitored for total period of 2 days 2. Baseline was normal sinus rhythm with average heart rate of 80 beats per minute 3. No significant pauses noted 4. Rare PACs noted without any sustained tachyarrhythmias 5. Patient marked the counter 6 times with symptoms of irregular heartbeat, heart racing, heart pounding, anxiety correlating with sinus rhythm Dictated By: Kevin Knutson MD Signed By: <Electronically signed by Kevin Knutson MD> 03/08/25 1122 Laboratory Tests 02/18/25 13:53 ESR 7 C-Reactive Protein 0.15 KULWANT Screen POSITIVE A KULWANT Titer 1:80 H KULWANT Titer 2 TNP KULWANT Titer 3 TNP KULWANT Pattern Nuclear, Speckled A KULWANT Pattern 2 TNP KULWANT Pattern 3 TNP 01/26/2025 labs: ok Assessment & Plan Assessment & Plan (1) Dizziness: Code(s): R42 - Dizziness and giddiness Category: Medical Plan: Results reviewed: * CT scan - no acute intracranial findings. * EEG - unremarkable. * 48hr Holter - Baseline NSR, average HR 80/min. No significant pauses, rare PACs without any sustained tachyarrhythmias. -Marked symptoms of irregular heartbeat, heart racing, heart pounding, and anxiety correlated with sinus rhythm (2) Migraine: Code(s): G43.909 - Migraine, unspecified, not intractable, without status migrainosus Category: Medical Qualifiers: Migraine type: unspecified Status migrainosus presence: without status migrainosus Intractability: not intractable Qualified Code(s): G43.909 - Migraine, unspecified, not intractable, without status migrainosus Plan: Start topiramate 25mg 1 tablet at bedtime, use/side effects reviewed. Plan Medications: New topiramate 25 mg PO BEDTIME 30 tabs 2RF 30 days Coding Level of Care Code Est Pt Level 4 (62593) Diagnoses Dizziness R42 Migraine without status migrainosus, not intractable, unspecified migraine type G43.909 Migraine type: unspecified Status migrainosus presence: without status migrainosus Intractability: not intractable
--- OUTSIDE RECORDS SUMMARY | 2025-03-18 18:30 | XMS_ITS | Encounter Summary ---
Author Organization [facility] Address [address] [place], [place] [address] Phone Care Team Providers Care Wash Test Checker Name Role Phone Cathie Benavidez MD Primary Care Provider [phone] Encounter Details Date Type Department Care Team (Late st Contact Info) Description 09/08/2016 Documentation [facility] [place] [address] [place] [address] Family Medicine, Physician [address], [place] [id number] Social History Tobacco Use Types Packs/Day Years [...] on filedocumented in this encounter Care Teams Wash Test Checker Relationship Specialty Start Date End Date Cathie Benavidez MD [address] [place] [address] PCP - General Pediatrics 08/14/19 10/11/22 documented as of this encounter
--- OUTSIDE RECORDS SUMMARY | 2025-03-18 18:30 | XMS_ITS | Encounter Summary ---
Author Organization [facility] Address [address] [place], [place] [address] Phone Care Team Providers Care Clinical Laboratory Medical Director Name Role Phone Cathie Benavidez MD Primary Care Provider [phone] Encounter Details Date Type Department Care Team (Late st Contact Info) Description 06/06/2016 Documentation [facility] [place] [address] [place] [address] Family Medicine, Physician [address] [place], [place] [id number] Social History Tobacco Use Types Packs/Day Years [...] filedocumented in this encounter Care Teams Clinical Laboratory Medical Director Relationship Specialty Start Date End Date Cathie Benavidez MD [address] [place] [address] PCP - General Pediatrics 08/14/19 10/11/22 documented as of this encounter
--- OUTSIDE RECORDS SUMMARY | 2025-03-18 18:30 | XMS_ITS | Encounter Summary ---
Author Organization [facility] Address [address] [place], [place] [address] Phone Care Team Providers Care School Bus Mechanic Name Role Phone Cathie Benavidez MD Primary Care Provider [phone] Encounter Details Date Type Department Care Team (Late st Contact Info) Description 08/11/2016 Documentation [facility] [place] [address] [place] [address] Family Medicine, Physician [address], [place] [phone] Social History Tobacco Use Types Packs/Day Years [...] on filedocumented in this encounter Care Teams School Bus Mechanic Relationship Specialty Start Date End Date Cathie Benavidez MD [address] [place] [address] PCP - General Pediatrics 08/14/19 10/11/22 documented as of this encounter
--- OUTSIDE RECORDS SUMMARY | 2025-03-18 18:30 | XMS_ITS | Encounter Summary ---
Author Organization [facility] Address [address] [place] [address] Phone Care Team Providers Care Rouge Miller Name Role Phone Cathie Benavidez MD Primary Care Provider [phone] Encounter Details Date Type Department Care Team (Late st Contact Info) Description 02/09/2017 Conversion Encounter [facility] [place] [address] [place] [address] Social History Tobacco Use Types Packs/Day Years [...] on filedocumented in this encounter Care Teams Rouge Miller Relationship Specialty Start Date End Date Cathie Benavidez MD [address] [place] [address] PCP - General Pediatrics 08/14/19 10/11/22 documented as of this encounter
--- OUTSIDE RECORDS SUMMARY | 2025-03-18 18:30 | XMS_ITS | Encounter Summary ---
Author Organization [facility] Address [address] [place], [place] [address] Phone Care Team Providers Care Commercial Interior Designer Name Role Phone Cathie Benavidez MD Primary Care Provider [phone] Encounter Details Date Type Department Care Team (Late st Contact Info) Description 09/08/2016 Documentation [facility] [place] [address] [place] [address] Family Medicine, Physician [address] [place], [place] [phone] Social History Tobacco Use Types Packs/Day Years [...] filedocumented in this encounter Care Teams Commercial Interior Designer Relationship Specialty Start Date End Date Cathie Benavidez MD [address] [place] [address] PCP - General Pediatrics 08/14/19 10/11/22 documented as of this encounter
--- OUTSIDE RECORDS SUMMARY | 2025-03-18 18:30 | XMS_ITS | Patient Health Record ---
Author Organization [facility] Address [address] [place] [address] Care Team Providers Care Core Blower Operator Name Role Phone Neel Duque MD [...] Problem Status W/U Status Risk Notes Problem 28850638 Epigastric pain (R10.13) Active confirmed Problem 97734552 Change in bowel habits (R19.4) Active confirmed Problem [id number] Gastroesophageal reflux disease, unspecified whether esophagitis present (K21.9) Active confirmed Vital Signs Temperature 97.1 degrees Fahrenheit 09/09/2024 Blood pressure diastolic 01 mm Hg 09/09/2024 Height 63 in 09/09/2024 Blood pressure systolic 001 mm Hg 09/09/2024 Weight 127.2 lbs 09/09/2024 BMI 22.53 kg/m2 09/09/2024 Encounters Encounter Location Date Provider Diagnosis [facility] [address] [place] [address] 09/09/2024 Paul Lu Jr Gastroesophageal reflux disease, [...] treatment of this today. She will continue rjlz-edl-yte nter simethicone. Follow-up will be in 1 [...] treatment of this today. She will continue uyiz-dhu-cok nter simethicone. Follow-up will be in 1 year. Plan Of Treatment Pending Test Test Name Order Date LIVER PROFILE 03/11/2024 LIPASE 03/11/2024 CBC w/o DIFF 03/11/2024 STOOL WBC 03/11/2024 OVA & PARASITES (O&P) 03/11/2024 TSH REFLEX FREE T4 03/11/2024 Future Test Test Name Order Date COLONOSCOPY 03/06/2023 UPPER GI ENDOSCOPY 10/25/2023 Next Appt Details Provider Name:Paul Donte savage Jr, 09/10/2025 10:20:00 AM, [address] [place] [address], [address], [place], [address], Insurance Providers Payer Name Payer Address Payer Phone Subscriber Number Group Number Insured Name Patient Relationship to Insured Coverage Start Date Coverage End Date [facility] [address] [address] [place], [place] [id number] BALL Self - patient is the [...]
--- OUTSIDE RECORDS SUMMARY | 2025-03-18 18:30 | XMS_ITS | Encounter Summary ---
Author Organization [facility] Address [address] [place], [place] [address] Phone Care Team Providers Care Corrections Corporal Name Role Phone Cathie Benavidez MD Primary Care Provider [phone] Encounter Details Date Type Department Care Team (Late st Contact Info) Description 07/22/2016 Documentation [facility] Family Medicine [address] [place] [address] Family Medicine, Physician [address] [place] [place], [place] [phone] Social History Tobacco Use Types Packs/Day Years [...] on filedocumented in this encounter Care Teams Corrections Corporal Relationship Specialty Start Date End Date Cathie Benavidez MD [address] [place] [address] PCP - General Pediatrics 08/14/19 10/11/22 documented as of this encounter
--- OUTSIDE RECORDS SUMMARY | 2025-03-18 18:30 | XMS_ITS | Encounter Summary ---
Author Organization [facility] Address [address] [place], [place] [address] Phone Care Team Providers Care Communications Programmer Name Role Phone Cathie Benavidez MD Primary Care Provider [phone] Encounter Details Date Type Department Care Team (Late st Contact Info) Description 10/03/2016 Documentation [facility] [place] [address] [place] [address] Family Medicine, Physician [address] [place] [phone] Social History Tobacco Use Types Packs/Day Years [...] on filedocumented in this encounter Care Teams Communications Programmer Relationship Specialty Start Date End Date Cathie Benavidez MD [address] [place] [address] PCP - General Pediatrics 08/14/19 10/11/22 documented as of this encounter
--- OUTSIDE RECORDS SUMMARY | 2025-03-18 18:30 | XMS_ITS | Encounter Summary ---
Author Organization [facility] Address [address] [place], [place] [address] Phone Care Team Providers Care Marine Diesel Mechanic Name Role Phone Cathie Benavidez MD Primary Care Provider [phone] Encounter Details Date Type Department Care Team (Late st Contact Info) Description 12/09/2015 Documentation [facility] [place] [address] [place] [address] Family Medicine, Physician [address] [phone] Social History Tobacco Use Types Packs/Day Years [...] on filedocumented in this encounter Care Teams Marine Diesel Mechanic Relationship Specialty Start Date End Date Cathie Benavidez MD [address] [place] [address] PCP - General Pediatrics 08/14/19 10/11/22 documented as of this encounter
--- OUTSIDE RECORDS SUMMARY | 2025-03-18 18:30 | XMS_ITS | Encounter Summary ---
Author Organization [facility] Address [address] [place], [place] [address] Phone Care Team Providers Care Print Buyer Name Role Phone Cathie Benavidez MD Primary Care Provider [phone] Encounter Details Date Type Department Care Team (Late st Contact Info) Description 11/07/2016 Documentation [facility] [place] [address] [place] [address] Family Medicine, Physician [address] [place] [phone] Social History Tobacco Use Types Packs/Day Years [...] on filedocumented in this encounter Care Teams Print Buyer Relationship Specialty Start Date End Date Cathie Benavidez MD [address] [place] [address] PCP - General Pediatrics 08/14/19 10/11/22 documented as of this encounter
--- OUTSIDE RECORDS SUMMARY | 2025-03-18 18:30 | XMS_ITS | Encounter Summary ---
Author Organization [facility] Address [address] [place] [phone] Phone Care Team Providers Care Women'S Basketball Coach Name Role Phone Cathie Benavidez MD Primary Care Provider [phone] Encounter Details Date Type Department Care Team (Late st Contact Info) Description 02/09/2017 [place]ation [facility] [place] [address] [place] [address] Family Medicine, Physician [address] [place], [place] [phone] Social History Tobacco Use Types Packs/Day Years [...] on filedocumented in this encounter Care Teams Women'S Basketball Coach Relationship Specialty Start Date End Date Cathie Benavidez MD [address] [place] [address] PCP - General Pediatrics 08/14/19 10/11/22 documented as of this encounter
--- OUTSIDE RECORDS SUMMARY | 2025-03-18 18:30 | XMS_ITS | Encounter Summary ---
Author Organization [facility] Address [address] [place], [place] [address] Phone Care Team Providers Care Microsoft Application Developer Name Role Phone Cathie Benavidez MD Primary Care Provider [phone] Encounter Details Date Type Department Care Team (Late st Contact Info) Description 11/07/2016 Documentation [facility] [place] [address] [place] [address] Family Medicine, Physician [address] [id number] Social History Tobacco Use Types Packs/Day Years [...] on filedocumented in this encounter Care Teams Microsoft Application Developer Relationship Specialty Start Date End Date Cathie Benavidez MD [address] [place] [address] PCP - General Pediatrics 08/14/19 10/11/22 documented as of this encounter
--- OUTSIDE RECORDS SUMMARY | 2025-03-18 18:30 | XMS_ITS | Encounter Summary ---
Author Organization [facility] Address [address] [place], [place] [address] Phone Care Team Providers Care Banking Supervisor Name Role Phone Cathie Benavidez MD Primary Care Provider [phone] Encounter Details Date Type Department Care Team (Late st Contact Info) Description 12/09/2015 Documentation [facility] [place] [address] [place] [address] Family Medicine, Physician [address] [place], [place] [phone] Social History Tobacco Use Types Packs/Day Years [...] on filedocumented in this encounter Care Teams Banking Supervisor Relationship Specialty Start Date End Date Cathie Benavidez MD [address] [place] [address] PCP - General Pediatrics 08/14/19 10/11/22 documented as of this encounter
--- OUTSIDE RECORDS SUMMARY | 2025-03-18 18:30 | XMS_ITS | Encounter Summary ---
Author Organization [facility] Address [address] [place] [address] Phone Care Team Providers Care Channel Program Manager Name Role Phone Cathie Benavidez MD Primary Care Provider [phone] Encounter Details Date Type Department Care Team (Late st Contact Info) Description 02/09/2017 Documentation [facility] [address] [place] [address] Family Medicine, Physician [address], [place] [phone] Social History Tobacco Use Types Packs/Day Years [...] on filedocumented in this encounter Care Teams Channel Program Manager Relationship Specialty Start Date End Date Cathie Benavidez MD [address] [place] [id number] PCP - General Pediatrics 08/14/19 10/11/22 documented as of this encounter
--- OUTSIDE RECORDS SUMMARY | 2025-03-18 18:30 | XMS_ITS | Clinical Summary ---
Author Organization [facility] Address [address] [place] [address] Phone Care Team Providers Care Foreman/Project Manager Name Role Phone Unavailable Primary Care Provider [...] diagnosed with pelvic congestive syndrome at [facility] 10/2020. Oneal not yet been evaluated by COMMUNITY INTEGRATION SPECIALIST. First episode 07/2019: - 08/14/2019: In ED CT abd/pelvis with IV contrast normal. Chemistries icnluding lipase, cbc normal. HCG neg. - 08/17/2019 Diagnosed in the office with PID and treated. G/C negative. Transvaginal ultrasound was normal. D iagnosed with constipation, treated with miralax. - 08/20/2019 Sent back to ED by COMMUNITY INTEGRATION SPECIALIST, second transvaginal U/S was done. - 08/29/2019: [...] metronidazole. She did have an ultrasound at [facility] on 04/29 and has not heard results - 05/04/2020: Office visit here in extreme pain, sent Back to ED where she left without completing her visit. 07/23/2020: Labs and KUB normal. GI apt upcoming 07/30/2020 07/30/2020: GI (Dr Trejo) planning for endoscpoy Third episode: 11/17/2020 (age 20yr): [facility] ED for pelvic pain, suspected pelvic congestive syndrome. U/S normal except prominent pelvic vasculature. Suggest COMMUNITY INTEGRATION SPECIALIST referral. 11/26/2020 (age 20yr): : admitted to [facility] 11/18/2020 - 11/12/2020 for 5 days of severe abdominal pain. Initiated treatment for presumed PID, no other diagnosis made, treated wit abx. GC/chlam neg. Missed COMMUNITY INTEGRATION SPECIALIST appointment. Assessment & Plan (12/03/2020 9:13 AM EDT): 12/03/2020 (age 20yr): vag probe from yesterday positive for yeast. With pt on antibiotics for PID and having symptoms of vaginitis, I recommend treatment. I will call in [facility] for her. 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 Oneal not yet been evaluated by COMMUNITY INTEGRATION SPECIALIST. Feeling better today after recent admission to [facility] where she was treated for PID. - Recommend reschedule with COMMUNITY INTEGRATION SPECIALIST, be persistent about getting appt and confirming appt time. - Recommend adult primary care as Petr is starting to have adult medical issues and may be needing more supervisor adult education care going forward. Assessment & Plan (05/12/2020 [...] nd well Other Family history of Sudden /[place] under 55, Family history of Asthma, No [...] 04/30/2017, 09/2003, 09/28/2000 Procedures * Due to [place] state law, this organization might not be sharing sensitive test results. Procedure Name Priority Date/Time Associated Diagnosis Comments CHLAMYDIA AND GONORRHEA, AMPLIFIED Routine 05/05/2020 4:29 PM EST Screening examination for bacterial and spirochetal disease from Last 3 Months or Most Recently Relevant to Health Maintenance Results * Due to [place] state law, this organization might not be sharing sensitive test results. * Chlamydia and Gonorrhoea, Amplified (05/05/2020 4:29 PM EST) Chlamydia Trachomatis, DNA Probe NOT DETECTED (NEG) [facility] Comment:Reference range: NOT DETECTED URINE GC AMP PROBE NOT DETECTED (NEG) [facility] Comment: Reference range: NOT DETECTED (NOTE) The analytical performance characteristics of this assay, when used to test SurePath(TM) specimens have been determined by [employer]. The modifications have not been cleared or approved by the FDA. This assay has been validated pursuant to the CLIA regulations and is used for clinical purposes. = For additional information, please refer to https://education.Alter-G/faq/KRU382 (This link is being provided for information/ educational purposes only.) = Test Performed by: [facility], [address] [place] [address]. [id number]. Psychiatric Lpn: Gil Newberry MD. Testing performed or reported by [facility], a Service of [facility], [facility] [place] [address] Baljit Faith MD, Environmental Assistant Urine 05/05/2020 4:29 PM EST 05/05/2020 7:26 PM EST Cathie Benavidez MD LAB MICROBIOLOGY - GENERAL OR DERABLES Final Result [facility] from Last 3 Months or Most Recently Relevant to Health Maintenance Insurance [facility] NON PCC
== END 2025-03-18 16:16 | disposition home or self-care (01) ==
LOC: HO.HSM 15:54
PROVIDERS: PCP Internal Medicine; Visit Provider Registered Nurse
DX: R42 Dizziness and giddiness (principal); G43.909 Migraine, unspecified, not intractable, without status migrainosus
CPT/HCPCS: 99214

== ENCOUNTER → 2025-03-18 15:53 | Outpatient (BNVA) | payer OTHER, SELFPAY | PROVIDERS: PCP Internal Medicine; Visit Provider Registered Nurse | DX: R42 Dizziness and giddiness (principal); G43.909 Migraine, unspecified, not intractable, without status migrainosus | CPT/HCPCS: 99212 ==

== ENCOUNTER 2025-05-05 09:20 | Outpatient (AMB) | payer OTHER, SELFPAY ==
--- OUTSIDE RECORDS SUMMARY | 2023-11-14 07:30 | XMS_ITS ---
Author Organization [facility] Address [address] [place] [address] [place] [address] Care Team Providers Care Lime Filter Operator Name Role Phone Neel Duque MD Primary Care Provider Paul Cortes Jr REASON FOR VISIT epigastric pain Encounters Encounter Location Date Provider Diagnosis [facility] Outpatient [address] [place] [phone] 11/14/2023 Paul Lu Jr Epigastric pain R10.13 Assessments Encounter Date Diagnosis (ICD Code) Assessment Notes Treatment Notes Treatment Clinical Notes Section Notes 11/14/2023 Epigastric pain (ICD-10 - R10.13) Plan Of Treatment Next Appt Details Provider Name:Paul savage Jr, 09/10/2025 10:20:00 AM, [address] [place] [address], Suite [facility], [place], [address], Progress Notes * JOSIAH BALLB:[birth year] (24 yo F)Acc No.[id number]:11/14/2023 EGD/MAC Patient: Vick BERGERON IFEOMA Provider: Chavez Lu MD :2000 A ge:23 Y S ex:Female Date:11/14/2023 Address:[address] [place] [address] [place] Pcp:Neel Duque MD Subjective: * Chief Complaints: * 1 . Epigastric pain. * Medical History: Objective: * Vitals: Assessment: * Assessment: 1. E pigastric pain - R10.13 (Primary) Plan: * Treatment: * Procedure Codes: 4 3239 UPPER GI ENDOSCOPY, BIOPSY * * The named appointment provid er may or may not be the originator of this progress note, and it is not deemed complete until electronically signed by the appointment provider. Sign off status: Pending * Provider: Chavez Lu MD Date: 0 11/14/2023 Generated for Shalini nunez/Amber/Kerryitting on: 1 07/05/2024 10:12 AM EST
--- NOTE | 2025-05-05 09:33 | MHC.OFFVIS ---
Intake Visit Reasons: 6 weeks Accompanied by: Daughter Allergies Seasonal Allergies Allergy (Intermediate, Verified 05/05/25 09:40) Itchy Eyes Medication List - Last Reconciled 05/05/25 by Candi Gottlieb CNP acetaminophen 500 mg PO Q6H PRN albuterol sulfate 90 mcg/actuation (Ventolin HFA) 2 puffs inhalation Q6H PRN bisacodyl (Dulcolax (bisacodyl)) 5 mg PO BEDTIME clotrimazole-betamethasone 1-0.05 % 1 appl topical BID 5 days dextrin (Fiber (dextrin)) 3 grams PO DAILY dicyclomine 10 mg PO BID ibuprofen 400 mg PO Q6H PRN metronidazole 500 mg PO BID 7 days ondansetron 4 mg PO Q8H PRN terconazole 0.8% 1 appful vaginal BEDTIME 3 days topiramate 25 mg PO BEDTIME 30 days HPI Comments Details: 24-year-old woman with asthma, anxiety, migraines, and near syncopal episodes. (The most recent episode was on 01/26/2025 while [facility] where she had been using alcohol and marijuana, and had lightheaded dizziness where her vision went black. She was off balance, but did not fall, and was seen at [facility]. She has had similar episodes in the past of dizziness and loss of vision, with associated symptoms of palpitations, hot and cold flashes, and nausea, lasting few minutes up to half hour. The first episode happened in 03/2020 when taking a shower. She felt hotter than usual and vision went black. She woke up on the floor with family around her). She has had headaches since childhood, which have gotten worse over the last few months. She was having headache almost every other day. Pain was usually frontal, or to sides of head, throbbing-type, with photophobia, sonophobia, and nausea. She felt better if she was able to lay down in a dark, quiet room or if she was able to sleep. She has tried ibuprofen and Tylenol as needed for headaches with minimal relief. She has family history of seizures in her mother and father, and history of headaches in father and sister. She was doing okay. She was taking topiramate at bedtime, no medication side effects and no significant headaches since starting medication in 02/2025. No dizziness. No episodes of feeling like she was going to pass out. Mood was still not so good and she was under some stress. Sleep was better. [facility] Medical History Diarrhea Acute gastroenteritis External hemorrhoids with complication Anxiety and depression Cough Cough due to LYNN inhibitor Seasonal allergies Low back pain Migraine with aura Asthma Surgical History History of salpingectomy H/O colonoscopy Family History Paternal Grandmother Breast CA Mother Crohn disease Seizure Father Migraine Seizure Brother Bipolar 1 disorder Maternal Grandmother Heart disease Maternal Aunt Colon cancer Other Mental health disorder Social History Housing: Apartment Alcohol intake: never Patient Tobacco Use Status: Never used Tobacco Tobacco use type: Cigarette Years Smoked: marijuana e-Cigarette/Vaping Use: Never Used Second Hand Smoke Exposure: No Substance Use Type: Marijuana service: No Current occupational status: employed Current occupation: [employer]PER[employer]OR [employer] Current occupational exposures/hazards: No Sexual orientation: Straight/Heterosexual Gender identity: Female Cognitive needs: No Hearing needs: No Vision needs: No Female Reproductive History Menstrual Age of Menarche: 12 Review of Systems Const Denies chills, Denies daytime sleepiness, Reports difficulty sleeping, Reports fatigue, Denies fever(s), Denies frequent falls, Reports headache(s), Denies increased appetite, Denies poor appetite, Denies snoring, Denies weakness, Denies weight gain and Denies weight loss Eyes Denies blurry vision, Denies diplopia and Denies loss of vision ENT Denies vertigo, Reports dizziness, Denies dry mouth, Denies otalgia, Reports headache(s), Denies hearing loss, Denies epistaxis, Denies nasal congestion, Denies neck pain, Denies tinnitus, Reports sinus pain and Denies sore throat Card Denies chest pain at rest, Denies chest pain with activity, Denies syncope, Denies leg edema, Denies palpitations, Denies dyspnea and Denies dyspnea on exertion Resp Denies cough, Denies dyspnea, Denies dyspnea on exertion and Denies snoring GI Reports abdominal pain, Denies constipation, Denies heartburn, Denies diarrhea, Reports nausea and Denies vomiting Denies urinary frequency, Denies nipple discharge, Denies urinary incontinence and Denies urinary urgency Musc Denies abnormal gait, Reports back pain, Denies myalgias, Denies arthralgias, Denies neck pain, Denies numbness, Denies stiffness and Denies tingling Skin/Breast Denies breast mass, Denies nipple discharge and Denies rash Neuro Denies abnormal gait, Denies vertigo, Reports dizziness, Denies syncope, Denies frequent falls, Reports headache(s), Denies lack of coordination, Denies loss of vision, Denies memory loss, Denies numbness, Denies Other visual disturbances, Denies restless legs, Denies seizure-like activity, Denies tingling, Denies paresthesias, Denies tremor(s) and Denies weakness Psych Reports anxiety, Reports depression, Denies memory loss, Denies visual hallucinations and Denies hallucinations Endo Denies cold intolerance, Reports fatigue, Denies heat intolerance, Denies polydipsia, Denies polyuria and Denies palpitations Chintan/Lymph Reports easy bleeding and Reports easy bruising Physical Exam Const Other: General Appearance:? normal, in no acute distress. Heart:? S1, S2 normal, no murmurs. Lungs:? clear anteriorly and posteriorly. Musculoskeletal:? normal. Extremities:? no edema. Psych:? alert, oriented, cognitive function intact, cooperative with exam. Neuro Other: Abnormal Neurological Findings:?none.? Mental Status: alert and oriented X 3. Normal attention, orientation, memory, and affect. Cranial Nerves: Pupils are equal, round, and reactive to light. External ocular muscles are intact. Visual nguyen are full, no ptosis. Face is symmetrical, no facial weakness or droop. Facial sensations are normal. Tongue protrudes in midline. Palate elevates symmetrically. Shoulder shrugging is normal Motor Examination: Normal muscle tone, bulk and strength. No atrophy or fasciculations. No drift of the extended upper extremities. DTR 2+. Plantars are flexor. Sensory Exam: Normal light touch, temperature, pinprick, vibration, and joint-position sensations. Rhomberg sign is absent. Coordination: No ataxia. No titubation. Gait Exam: Within normal limits. Cerebellar Signs: [id number] is okay. Extrapyramidal System: No tremor, rigidity with normal facial expressions. No bradykinesia. No bradyphrenia. Normal arm swing and posture. No propulsion or retropulsion. Speech: Normal. Results Reviewed Results Reviewed: CT head at [facility] on 03/15/2025: No acute intracranial findings. EEG in office on 02/26/2025: No significant abnormality noted on this EEG. 48hr Holter 02/25/2025: Baseline was normal sinus rhythm with average heart rate of 80 beats per minute. No significant pauses noted. Rare PACs noted without any sustained tachyarrhythmias. Patient marked the counter 6 times with symptoms of irregular heartbeat, heart racing, heart pounding, anxiety correlating with sinus rhythm Labs 01/2025: CBC ok with mild anemia, CMP ok, ESR 7, CRP 0.15, KULWANT positive 1:80 nuclear, speckled. Assessment & Plan Assessment & Plan (1) Migraine: Code(s): G43.909 - Migraine, unspecified, not intractable, without status migrainosus Category: Medical Qualifiers: Migraine type: unspecified Status migrainosus presence: without status migrainosus Intractability: not intractable Qualified Code(s): G43.909 - Migraine, unspecified, not intractable, without status migrainosus Plan: Continue topiramate 25mg 1 tablet at bedtime. Follow up in 3 months or sooner as needed. (2) Dizziness: Code(s): R42 - Dizziness and giddiness Category: Medical Plan Medications: Changed From topiramate 25 mg PO BEDTIME 30 days 30 tabs 2RF To topiramate 25 mg PO BEDTIME 90 tabs 1RF 90 days Coding Level of Care Code Est Pt Level 4 (23891) Diagnoses Migraine without status migrainosus, not intractable, unspecified migraine type G43.909 Migraine type: unspecified Status migrainosus presence: without status migrainosus Intractability: not intractable Dizziness R42
--- OUTSIDE RECORDS SUMMARY | 2025-05-05 10:12 | XMS_ITS | Encounter Summary ---
Author Organization [facility] Address [address] [place] [address] Phone Care Team Providers Care Block Placer Name Role Phone Cathie Benavidez MD Primary Care Provider [phone] Encounter Details Date Type Department Care Team (Late st Contact Info) Description 02/09/2017 Documentation [facility] [address] [place] [address] Family Medicine, Physician [address] [place], [place] [phone] Social History Tobacco Use Types Packs/Day Years [...] on filedocumented in this encounter Care Teams Block Placer Relationship Specialty Start Date End Date Cathie Benavidez MD [address] [place] [address] PCP - General Pediatrics 08/14/19 10/11/22 documented as of this encounter
--- OUTSIDE RECORDS SUMMARY | 2025-05-05 10:13 | XMS_ITS | Encounter Summary ---
Author Organization [facility] Address [address] [place], [place] [phone] Phone Care Team Providers Care Hogshead Press Operator Name Role Phone Cathie Benavidez MD Primary Care Provider [phone] Encounter Details Date Type Department Care Team (Late st Contact Info) Description 09/08/2016 Documentation [facility] Family Medicine [address] [place] [address] Family Medicine, Physician [address], [place] [phone] Social History Tobacco Use Types Packs/Day Years [...] on filedocumented in this encounter Care Teams Hogshead Press Operator Relationship Specialty Start Date End Date Cathie Benavidez MD [address] [place] [address] PCP - General Pediatrics 08/14/19 10/11/22 documented as of this encounter
--- OUTSIDE RECORDS SUMMARY | 2025-05-05 10:13 | XMS_ITS | Clinical Summary ---
Author Organization [facility] Address [address] [place] [address] Phone Care Team Providers Care Director New Product Name Role Phone Unavailable Primary Care Provider [...] was diagnosed with pelvic congestive syndrome at [facility] [place]. Oneal not yet been evaluated by HANDCREW FOREMAN. First episode 07/2019: - 08/14/2019: In ED CT abd/pelvis with IV contrast normal. Chemistries icnluding lipase, cbc normal. HCG neg. - 08/17/2019 Diagnosed in the office with PID and treated. G/C negative. Transvaginal ultrasound was normal. D iagnosed with constipation, treated with miralax. - 08/20/2019 Sent back to ED by HANDCREW FOREMAN, second transvaginal U/S was done. - 08/29/2019: [...] metronidazole. She did have an ultrasound at [facility] on 04/29 and has not heard results - 05/04/2020: Office visit here in extreme pain, sent Back to ED where she left without completing her visit. 07/23/2020: Labs and KUB normal. GI apt upcoming 07/30/2020 07/30/2020: GI (Dr Trejo) planning for endoscpoy Third episode: 11/17/2020 (age 20yr): [facility] for pelvic pain, suspected pelvic congestive syndrome. U/S normal except prominent pelvic vasculature. Suggest HANDCREW FOREMAN referral. 11/26/2020 (age 20yr): : admitted to [facility] 11/18/2020 - 11/12/2020 for 5 days of severe abdominal pain. Initiated treatment for presumed PID, no other diagnosis made, treated wit abx. GC/chlam neg. Missed HANDCREW FOREMAN appointment. Assessment & Plan (12/03/2020 9:13 AM EDT): 12/03/2020 (age 20yr): vag probe from yesterday positive for yeast. With pt on antibiotics for PID and having symptoms of vaginitis, I recommend treatment. I will call in [facility] for her. I left a [...] was diagnosed with pelvic congestive syndrome at [facility] [place]. Oneal not yet been evaluated by HANDCREW FOREMAN. Feeling better today after recent admission to [facility] where she was treated for PID. - Recommend reschedule with HANDCREW FOREMAN, be persistent about getting appt and confirming appt time. - Recommend adult primary care as Petr is starting to have adult medical issues and may be needing more meat specialist care going forward. Assessment & Plan [...] nd well Other Family history of Sudden /[place] under 55, Family history of Asthma, No [...] 04/30/2017, 09/2003, 09/28/2000 Procedures * Due to [place] state law, this organization might not be sharing sensitive test results. Procedure Name Priority Date/Time Associated Diagnosis Comments CHLAMYDIA AND GONORRHEA, AMPLIFIED Routine 05/05/2020 4:29 PM EST Screening examination for bacterial and spirochetal disease from Last 3 Months or Most Recently Relevant to Health Maintenance Results * Due to [place] state law, this organization might not be sharing sensitive test results. * Chlamydia and Gonorrhoea, Amplified (05/05/2020 4:29 PM EST) Chlamydia Trachomatis, DNA Probe NOT DETECTED (NEG) [facility] Comment:Reference range: NOT DETECTED URINE GC AMP PROBE NOT DETECTED (NEG) [facility] Comment: Reference range: NOT DETECTED (NOTE) The analytical performance characteristics of this assay, when used to test SurePath(TM) specimens have been determined by [employer]. The modifications have not been cleared or approved by the FDA. This assay has been validated pursuant to the CLIA regulations and is used for clinical purposes. = For additional information, please refer to https://education.SezWho/faq/KRL807 (This link is being provided for information/ educational purposes only.) = Test Performed by: [facility], [address] [place] [address]. [id number]. Entry Level Java Developer: Gil Newberry MD. Testing performed or reported by [facility], a Service of [facility], [facility] [place] [address] Baljit Faith MD, Track Equipment Operator Urine 05/05/2020 4:29 PM EST 05/05/2020 7:26 PM EST Cathie Benavidez MD LAB MICROBIOLOGY - GENERAL OR DERABLES Final Result [facility] from Last 3 Months or Most Recently Relevant to Health Maintenance Insurance [facility] NON PCC
--- OUTSIDE RECORDS SUMMARY | 2025-05-05 10:13 | XMS_ITS | Encounter Summary ---
Author Organization [facility] Address [address] [place], [place] [address] Phone Care Team Providers Care Pre Press Operator Name Role Phone Cathie Benavidez MD Primary Care Provider [phone] Encounter Details Date Type Department Care Team (Late st Contact Info) Description 12/09/2015 Documentation [facility] [place] Family Medicine [address] [place] [address] Family Medicine, Physician [address] [phone] Social History Tobacco Use Types Packs/Day Years [...] on filedocumented in this encounter Care Teams Pre Press Operator Relationship Specialty Start Date End Date Cathie Benavidez MD [address] [place] [address] PCP - General Pediatrics 08/14/19 10/11/22 documented as of this encounter
--- OUTSIDE RECORDS SUMMARY | 2025-05-05 10:13 | XMS_ITS | Encounter Summary ---
Author Organization [facility] Address [address] [place], [place] [phone] Phone Care Team Providers Care Commercial Account Executive Name Role Phone Cathie Benavidez MD Primary Care Provider [phone] Encounter Details Date Type Department Care Team (Late st Contact Info) Description 07/22/2016 Documentation [facility] [place] [address] [place] [address] Family Medicine, Physician [address], [place] [phone] Social History Tobacco Use Types Packs/Day Years [...] filedocumented in this encounter Care Teams Commercial Account Executive Relationship Specialty Start Date End Date Cathie Benavidez MD [address] [place] [address] PCP - General Pediatrics 08/14/19 10/11/22 documented as of this encounter
--- OUTSIDE RECORDS SUMMARY | 2025-05-05 10:13 | XMS_ITS | Encounter Summary ---
Author Organization [facility] Address [address] [place], [place] [phone] Phone Care Team Providers Care Real Estate Services Administrator Name Role Phone Cathie Benavidez MD Primary Care Provider Encounter Details Date Type Department Care Team (Late st Contact Info) Description 12/09/2015 Documentation [facility] [place] [address] [place] [address] Family Medicine, Physician [address], [place] [phone] Social History Tobacco Use Types Packs/Day Years [...] on filedocumented in this encounter Care Teams Real Estate Services Administrator Relationship Specialty Start Date End Date Cathie Benavidez MD [address] [place] [address] PCP - General Pediatrics 08/14/19 10/11/22 documented as of this encounter
--- OUTSIDE RECORDS SUMMARY | 2025-05-05 10:13 | XMS_ITS | Encounter Summary ---
Author Organization [facility] Address [address] [place] [address] Phone Care Team Providers Care Warehouse Shipping Associate Name Role Phone Cathie Benavidez MD Primary Care Provider [phone] Encounter Details Date Type Department Care Team (Late st Contact Info) Description 02/09/2017 Documentation [facility] [place] [address] [place] [address] Family Medicine, Physician [address], [place] [phone] Social History Tobacco Use Types Packs/Day Years [...] on filedocumented in this encounter Care Teams Warehouse Shipping Associate Relationship Specialty Start Date End Date Cathie Benavidez MD [address] [place] [id number] PCP - General Pediatrics 08/14/19 10/11/22 documented as of this encounter
--- OUTSIDE RECORDS SUMMARY | 2025-05-05 10:13 | XMS_ITS | Patient Health Record ---
Author Organization [facility] Address [address] [place] [address] Care Team Providers Care Conference Concierge Name Role Phone Neel Duque MD Primary Care Provider Paul Cortes Jr Unavailable Allergies No Known Allergies Reason For Referral No Information Medications Medication SIG (Take, Route, Frequency, Duration) Notes Start Date End Date Status Ibuprofen 600 MG Oral; Duration: 11 Active Ventolin HFA 108 (90 Base) MCG/ACT Inhalation; Duration: 25 Act anusha metroNIDAZOLE 500 MG TAKE 1 TABLET BY [facility] EVERY 12 HOURS FOR 7 DAYS Oral; Duration: 7 Active Progesterone 200 MG TAKE 1 CAPSULE BY [facility] EVERY DAY AT BEDTIME FOR 5 DAYS Oral; Duration: 5 Active Doxycycline Hyclate 100 MG Oral; Duration: 14 Active Ketorolac Tromethamine 10 MG Oral; Duration: 4 Active Ondansetron 4 MG Oral; Duration: 4 Active Gas Relief Extra Strength 125 MG TAKE 1 CAPSULE BY MOUTH 2-4 TIMES A DAY NEEDED Oral; Duration: 5 Active Dicyclomine HCl 10 MG 1 tablet Orally 2- 4 times a day 10/25/2023 Active Omeprazole 20 MG 1 capsule 30 minutes before morning meal Orally Once a day; Duration: 30 day(s) 10/25/2023 Active Acetaminophen Extra Strength 500 MG Oral; Duration: 8 Active Immunizations Vaccine Route Administration Date [...] Problem Status W/U Status Risk Notes Problem Epigastric pain (82704605) Epigastric pain (R10.13) Active confirmed Problem Change in bowel habit (73373597) Change in bowel habits (R19.4) Active confirmed Problem Gastroesophageal reflux disease (866421781) Gastroesophageal reflux disease, unspecified whether esophagitis present (K21.9) Active confirmed Vital Signs Temperature 97.1 degrees Fahrenheit 09/09/2024 Blood pressure diastolic 01 mm Hg 09/09/2024 Height 63 in 09/09/2024 Blood pressure systolic 001 mm Hg 09/09/2024 Weight 127.2 lbs 09/09/2024 BMI 22.53 kg/m2 09/09/2024 Encounters Encounter Location Date Provider Diagnosis [facility] [address] [place] [address] 09/09/2024 Paul Lu Jr Gastroesophageal reflux disease, [...] treatment of this today. She will continue gpmz-[id number] nter simethicone. Follow-up will be in 1 [...] treatment of this today. She will continue iluv-[id number]-bnc nter simethicone. Follow-up will be in 1 year. Plan Of Treatment Pending Test Test Name Order Date LIVER PROFILE 03/11/2024 LIPASE 03/11/2024 CBC w/o DIFF 03/11/2024 STOOL WBC 03/11/2024 OVA & PARASITES (O&P) 03/11/2024 TSH REFLEX FREE T4 03/11/2024 Future Test Test Name Order Date COLONOSCOPY 03/06/2023 UPPER GI ENDOSCOPY 10/25/2023 Next Appt Details Provider Name:Paul Donte Weinberg savage Jr, 09/10/2025 10:20:00 AM, [address] [facility], [address], [place], [address], Insurance Providers Payer Name Payer Address Payer Phone Subscriber Number Group Number Insured Name Patient Relationship to Insured Coverage Start Date Coverage End Date [facility] [address] [address] [place], [place] [id number] BALL Self - patient is the [...]
--- OUTSIDE RECORDS SUMMARY | 2025-05-05 10:13 | XMS_ITS | Encounter Summary ---
Author Organization [facility] Address [address] [place], [place] [address] Phone Care Team Providers Care Poker Prop Player Name Role Phone Cathie Benavidez MD Primary Care Provider [phone] Encounter Details Date Type Department Care Team (Late st Contact Info) Description 11/07/2016 Documentation [facility] [place] Family Medicine [address] [place] [address] Family Medicine, Physician [address] [place] [phone] Social History Tobacco Use Types Packs/Day Years [...] on filedocumented in this encounter Care Teams Poker Prop Player Relationship Specialty Start Date End Date Cathie Benavidez MD [address] [place] [address] PCP - General Pediatrics 08/14/19 10/11/22 documented as of this encounter
--- OUTSIDE RECORDS SUMMARY | 2025-05-05 10:13 | XMS_ITS | Encounter Summary ---
Author Organization [facility] Address [address] [place], [place] [address] Phone Care Team Providers Care Addictions Counselor Assistant Name Role Phone Cathie Benavidez MD Primary Care Provider [phone] Encounter Details Date Type Department Care Team (Late st Contact Info) Description 08/11/2016 Documentation [facility] [place] Family Medicine [address] [place] [address] Family Medicine, Physician [address] [place] [phone] Social History Tobacco Use Types Packs/Day Years [...] on filedocumented in this encounter Care Teams Addictions Counselor Assistant Relationship Specialty Start Date End Date Cathie Benavidez MD [address] [place] [address] PCP - General Pediatrics 08/14/19 10/11/22 documented as of this encounter
--- OUTSIDE RECORDS SUMMARY | 2025-05-05 10:13 | XMS_ITS | Encounter Summary ---
Author Organization [facility] Address [address] [place], [place] [address] Phone Care Team Providers Care Carbon Coater Machine Operator Name Role Phone Cathie Benavidez MD Primary Care Provider Encounter Details Date Type Department Care Team (Late st Contact Info) Description 10/03/[address] [facility] [place] [address] [place] [address] Family Medicine, Physician [address] [place] [phone] Social History Tobacco Use Types Packs/Day Years [...] on filedocumented in this encounter Care Teams Carbon Coater Machine Operator Relationship Specialty Start Date End Date Cathie Benavidez MD [address] [place] [address] PCP - General Pediatrics 08/14/19 10/11/22 documented as of this encounter
--- OUTSIDE RECORDS SUMMARY | 2025-05-05 10:13 | XMS_ITS | Encounter Summary ---
Author Organization [facility] Address [address] [place], [place] [address] Phone Care Team Providers Care Silk Weaver Name Role Phone Cathie Benavidez MD Primary Care Provider [phone] Encounter Details Date Type Department Care Team (Late st Contact Info) Description 11/07/2016 Documentation [facility] [place] [address] [place] [address] Family Medicine, Physician [address] [place], [place] [phone] Social History Tobacco Use Types Packs/Day Years [...] on filedocumented in this encounter Care Teams Silk Weaver Relationship Specialty Start Date End Date Cathie Benavidez MD [address] [place] [address] PCP - General Pediatrics 08/14/19 10/11/22 documented as of this encounter
--- OUTSIDE RECORDS SUMMARY | 2025-05-05 10:13 | XMS_ITS | Encounter Summary ---
Author Organization [facility] Address [address] [place] [address] Phone Care Team Providers Care Mba Internship Name Role Phone Cathie Benavidez MD Primary Care Provider [phone] Encounter Details Date Type Department Care Team (Late st Contact Info) Description 02/09/2017 Conversion Encounter [facility] [place] [address] [place] [address] Social History Tobacco Use Types Packs/Day Years [...] on filedocumented in this encounter Care Teams Mba Internship Relationship Specialty Start Date End Date Cathie Benavidez MD [address] [place] [address] PCP - General Pediatrics 08/14/19 10/11/22 documented as of this encounter
--- OUTSIDE RECORDS SUMMARY | 2025-05-05 10:13 | XMS_ITS | Encounter Summary ---
Author Organization [facility] Address [address] [place], [place] [address] Phone Care Team Providers Care Vessel Slag Worker Name Role Phone Cathie Benavidez MD Primary Care Provider [phone] Encounter Details Date Type Department Care Team (Late st Contact Info) Description 09/08/2016 Documentation [facility] [place] Family Medicine [address] [place] [address] Family Medicine, Physician [address] [place], [place] [phone] Social History Tobacco Use Types Packs/Day Years [...] on filedocumented in this encounter Care Teams Vessel Slag Worker Relationship Specialty Start Date End Date Cathie Benavidez MD [address] [place] [address] PCP - General Pediatrics 08/14/19 10/11/22 documented as of this encounter
--- OUTSIDE RECORDS SUMMARY | 2025-05-05 10:13 | XMS_ITS | Encounter Summary ---
Author Organization [facility] Address [address] [place], [place] [address] Phone Care Team Providers Care Professional Programmer Analyst Name Role Phone Cathie Benavidez MD Primary Care Provider [phone] Encounter Details Date Type Department Care Team (Late st Contact Info) Description 06/06/2016 Documentation [facility] [place] [address] [place] [address] Family Medicine, Physician [address] [place], [place] [phone] Social History Tobacco Use Types Packs/Day Years [...] on filedocumented in this encounter Care Teams Professional Programmer Analyst Relationship Specialty Start Date End Date Cathie Benavidez MD [address] [place] [address] PCP - General Pediatrics 08/14/19 10/11/22 documented as of this encounter
== END 2025-05-05 09:45 | disposition home or self-care (01) ==
LOC: HO.HSM 09:21
PROVIDERS: PCP Internal Medicine; Visit Provider Registered Nurse
DX: G43.909 Migraine, unspecified, not intractable, without status migrainosus (principal); R42 Dizziness and giddiness
CPT/HCPCS: 99214

== ENCOUNTER → 2025-05-05 09:20 | Outpatient (BNVA) | payer OTHER, SELFPAY | PROVIDERS: PCP Internal Medicine; Visit Provider Registered Nurse | DX: G43.909 Migraine, unspecified, not intractable, without status migrainosus (principal); R42 Dizziness and giddiness; Z79.899 Other long term (current) drug therapy | CPT/HCPCS: 99212 ==

== ENCOUNTER 2025-05-29 08:52 | Outpatient (AMB) | payer OTHER, SELFPAY ==
--- NOTE | 2025-05-29 08:56 | A.OFFVIS_ITS ---
Vital Signs 05/29/25 09:19 BP 110/67 Position Sitting Pulse 67 Intake Visit Reasons: New symptoms Allergies Seasonal Allergies Allergy (Intermediate, Verified 05/29/25 09:02) Itchy Eyes Medication List - Last Reconciled 05/29/25 by Candi Gottlieb CNP acetaminophen 500 mg PO Q6H PRN albuterol sulfate 90 mcg/actuation (Ventolin HFA) 2 puffs inhalation Q6H PRN aripiprazole 2 mg PO BEDTIME bisacodyl (Dulcolax (bisacodyl)) 5 mg PO BEDTIME clotrimazole-betamethasone 1-0.05 % 1 appl topical BID 5 days dextrin (Fiber (dextrin)) 3 grams PO DAILY dicyclomine 10 mg PO BID ibuprofen 400 mg PO Q6H PRN metronidazole 500 mg PO BID 7 days ondansetron 4 mg PO Q8H PRN terconazole 0.8% 1 appful vaginal BEDTIME 3 days topiramate 25 mg PO BEDTIME 90 days HPI Comments Details: 24-year-old woman with asthma, anxiety, migraines, and near syncopal episodes. (The most recent episode was on 01/26/2025 [facility] [facility] where she had been using alcohol and marijuana, and had lightheaded dizziness where her vision went black. She was off balance, but did not fall, and was seen at [facility]. She has had similar episodes in the past of dizziness and loss of vision, with associated symptoms of palpitations, hot and cold flashes, and nausea, lasting few minutes up to half hour. The first episode happened in 03/2020 when taking a shower. She felt hotter than usual and vision went black. She woke up on the floor with family around her). She has had headaches since childhood. Headaches were happening almost every other day. Pain was usually frontal, or to sides of head, throbbing-type, with photophobia, sonophobia, and nausea. She felt better if she was able to lay down in a dark, quiet room or if she was able to sleep. She has tried ibuprofen and Tylenol as needed for headaches with minimal relief. She has family history of seizures in her mother and father, and history of headaches in father and sister. Headaches were better after starting topiramate at bedtime in 02/2025 with no significant headaches, dizziness, or episodes of feeling like she was going to pass out. She started Abilify around mid-late 04/2025. She felt too drowsy in the morning with Abilify and topiramate, and she was taking topiramate every other night for last 2 weeks. She was unable to tolerate taking topiramate in the morning as medication made her tired and she fell asleep within few minutes of taking medication. She was here with new symptom of stiffness to right shoulder area that she woke with about 2 weeks ago with some occasional numbness and tingling to right arm. Symptoms were more constant for first two days, and has been on and off heaviness and stiffness to right shoulder area since then. 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 It lasted for about 5 minutes and she ran hands under warm water. No further episodes or LUE symptoms. No symptoms to lower extremities. She denies any accidents or injuries. PENDING SALE TO [facility] Medical History Diarrhea Acute gastroenteritis External hemorrhoids with complication Anxiety and depression Cough Cough due to LYNN inhibitor Seasonal allergies Low back pain Migraine with aura Asthma Surgical History History of salpingectomy H/O colonoscopy Family History Paternal Grandmother Breast CA Mother Crohn disease Seizure Father Migraine Seizure Brother Bipolar 1 disorder Maternal Grandmother Heart disease Maternal Aunt Colon cancer Other Mental health disorder Social History Housing: Apartment Alcohol intake: never Patient Tobacco Use Status: Never used Tobacco Tobacco use type: Cigarette Years Smoked: marijuana e-Cigarette/Vaping Use: Never Used Second Hand Smoke Exposure: No Substance Use Type: Marijuana service: No Current occupational status: employed 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 Current occupational exposures/hazards: No Sexual orientation: Straight/Heterosexual Gender identity: Female Cognitive needs: No Hearing needs: No Vision needs: No Female Reproductive History Menstrual Age of Menarche: 12 Review of Systems Const Denies chills, Denies daytime sleepiness, Reports difficulty sleeping, Reports fatigue, Denies fever(s), Denies frequent falls, Reports headache(s), Denies increased appetite, Denies poor appetite, Denies snoring, Denies weakness, Denies weight gain and Denies weight loss Eyes Denies blurry vision, Denies diplopia and Denies loss of vision ENT Denies vertigo, Reports dizziness, Denies dry mouth, Denies otalgia, Reports headache(s), Denies hearing loss, Denies epistaxis, Denies nasal congestion, Denies neck pain, Denies tinnitus, Reports sinus pain and Denies sore throat Card Denies chest pain at rest, Denies chest pain with activity, Denies syncope, Denies leg edema, Denies palpitations, Denies dyspnea and Denies dyspnea on exertion Resp Denies cough, Denies dyspnea, Denies dyspnea on exertion and Denies snoring GI Reports abdominal pain, Denies constipation, Denies heartburn, Denies diarrhea, Reports nausea and Denies vomiting Denies urinary frequency, Denies nipple discharge, Denies urinary incontinence and Denies urinary urgency Musc Denies abnormal gait, Reports back pain, Denies myalgias, Denies arthralgias, Denies neck pain, Denies numbness, Denies stiffness and Denies tingling Skin/Breast Denies breast mass, Denies nipple discharge and Denies rash Neuro Denies abnormal gait, Denies vertigo, Reports dizziness, Denies syncope, Denies frequent falls, Reports headache(s), Denies lack of coordination, Denies loss of vision, Denies memory loss, Denies numbness, Denies Other visual disturbances, Denies restless legs, Denies seizure-like activity, Denies tingling, Denies paresthesias, Denies tremor(s) and Denies weakness Psych Reports anxiety, Reports depression, Denies memory loss, Denies visual hallucinations and Denies hallucinations Endo Denies cold intolerance, Reports fatigue, Denies heat intolerance, Denies polydipsia, Denies polyuria and Denies palpitations Chintan/Lymph Reports easy bleeding and Reports easy bruising Physical Exam Const Other: General Appearance:? normal, in no acute distress. Heart:? S1, S2 normal, no murmurs. Lungs:? clear anteriorly and posteriorly. Musculoskeletal:? normal. Extremities:? no edema. Psych:? alert, oriented, cognitive function intact, cooperative with exam. Neuro Other: Abnormal Neurological Findings:?R trapezius tender Mental Status: alert and oriented X 3. Normal attention, orientation, memory, and affect. Cranial Nerves: Pupils are equal, round, and reactive to light. External ocular muscles are intact. Visual nguyen are full, no ptosis. Face is symmetrical, no facial weakness or droop. Facial sensations are normal. Tongue protrudes in midline. Palate elevates symmetrically. Shoulder shrugging is normal Motor Examination: As above. Sensory Exam: Normal light touch, temperature, pinprick, vibration, and joint- position sensations. Rhomberg sign is absent. Coordination: No ataxia. No titubation. Gait Exam: Within normal limits. Cerebellar Signs: Gbjojx-bj-hnvy is okay. Extrapyramidal System: No tremor, rigidity with normal facial expressions. No bradykinesia. No bradyphrenia. Normal arm swing and posture. No propulsion or re tropulsion. Speech: Normal. Results Reviewed Results Reviewed: CT head at [facility] on 03/15/2025: No acute intracranial findings. EEG in office on 02/26/2025: No significant abnormality noted on this EEG. 48hr Holter 02/25/2025: Baseline was normal sinus rhythm with average heart rate of 80 beats per minute. No significant pauses noted. Rare PACs noted without any sustained tachyarrhythmias. Patient marked the counter 6 times with symptoms of irregular heartbeat, heart racing, heart pounding, anxiety correlating with sinus rhythm Labs 01/2025: CBC ok with mild anemia, CMP ok, ESR 7, CRP 0.15, KULWANT positive 1:80 nuclear, speckled. Assessment & Plan Assessment & Plan (1) Migraine: Code(s): G43.909 - Migraine, unspecified, not intractable, without status migrainosus Category: Medical Qualifiers: Migraine type: unspecified Status migrainosus presence: without status migrainosus Intractability: not intractable Qualified Code(s): G43.909 - Migraine, unspecified, not intractable, without status migrainosus Plan: She was started on Abilify in mid-late 04/2025 at bedtime with topiramate which caused excessive daytime drowsiness, so she was taking topiramate every other day. She was unable to tolerate topiramate in the morning as medication made her tired and she would fall asleep shortly after taking dose. Stop topiramate. Start propranolol 10mg 1 tablet daily, use/side effects reviewed. Follow up in 6 weeks or sooner as needed. (2) Dizziness: Code(s): R42 - Dizziness and giddiness Category: Medical (3) Right shoulder strain: Code(s): S46.911A - Strain of unspecified muscle, fascia and tendon at shoulder and upper arm level, right arm, initial encounter Category: Medical Qualifiers: Encounter type: initial encounter Qualified Code(s): S46.911A - Strain of unspecified muscle, fascia and tendon at shoulder and upper arm level, right arm, initial encounter Plan: Start cyclobenzaprine 5mg 1 tablet at bedtime as needed for muscle spasm/pain, use/side effects reviewed. PT ordered. Plan Orders: Orders PT Evaluation and Treatment Today S46.911A - Strain of unspecified muscle, fascia and tendon at shoulder and upper arm level, right arm, initial encounter Medications: New cyclobenzaprine 5 mg PO BEDTIME 30 tabs 1RF 30 days propranolol 10 mg PO DAILY 30 tabs 2RF 30 days Discontinued topiramate Discontinued Reason: Doctor's Order 25 mg PO BEDTIME 90 days 90 tabs 1RF Coding Level of Care Code Est Pt Level 4 (32769) Diagnoses Migraine without status migrainosus, not intractable, unspecified migraine type G43.909 Migraine type: unspecified Status migrainosus presence: without status migrainosus Intractability: not intractable Dizziness R42 Strain of right shoulder, initial encounter S46.911A Encounter type: initial encounter
[2025-05-29 09:19] VITALS: BP 110/67; PULSE 67
--- OUTSIDE RECORDS SUMMARY | 2025-05-29 09:35 | XMS_ITS | Encounter Summary ---
Author Organization [facility] Address [address] [place], [place] [address] Phone Care Team Providers Care Ink Blender Name Role Phone Cathie Benavidez MD Primary Care Provider [phone] Encounter Details Date Type Department Care Team (Late st Contact Info) Description 10/03/2016 Documentation [facility] [place] [address] [place] [address] Family Medicine, Physician [address] [place], [place] [phone] Social History Tobacco Use Types Packs/Day Years [...] on filedocumented in this encounter Care Teams Ink Blender Relationship Specialty Start Date End Date Cathie Benavidez MD [address] [place] [address] PCP - General Pediatrics 08/14/19 10/11/22 documented as of this encounter
--- OUTSIDE RECORDS SUMMARY | 2025-05-29 09:35 | XMS_ITS | Encounter Summary ---
Author Organization [facility] Address [address] [place], [place] [address] Phone Care Team Providers Care Senior Cobol Developer Name Role Phone Cathie Benavidez MD Primary Care Provider [phone] Encounter Details Date Type Department Care Team (Late st Contact Info) Description 07/22/2016 Documentation [facility] [place] Family Medicine [address] [place] [address] Family Medicine, Physician [address], [place] [phone] Social History Tobacco Use Types Packs/Day Years [...] filedocumented in this encounter Care Teams Senior Cobol Developer Relationship Specialty Start Date End Date Cathie Benavidez MD [address] [place] [address] PCP - General Pediatrics 08/14/19 10/11/22 documented as of this encounter
--- OUTSIDE RECORDS SUMMARY | 2025-05-29 09:35 | XMS_ITS | Encounter Summary ---
Author Organization [facility] Address [address] [place] [address] Phone Care Team Providers Care Telephone Directory Deliverer Name Role Phone Cathie Benavidez MD Primary Care Provider [phone] Encounter Details Date Type Department Care Team (Late st Contact Info) Description 02/09/2017 Conversion Encounter [facility] [place] [address] [place] [address] Social History Tobacco Use Types Packs/Day Years [...] on filedocumented in this encounter Care Teams Telephone Directory Deliverer Relationship Specialty Start Date End Date Cathie Benavidez MD [address] [place] [address] PCP - General Pediatrics 08/14/19 10/11/22 documented as of this encounter
--- OUTSIDE RECORDS SUMMARY | 2025-05-29 09:35 | XMS_ITS | Encounter Summary ---
Author Organization [facility] Address [address] [place], [place] [address] Phone Care Team Providers Care Jackerman Name Role Phone Cathie Benavidez MD Primary Care Provider [phone] Encounter Details Date Type Department Care Team (Late st Contact Info) Description 09/08/2016 Documentation [facility] Family Medicine [address] [place] [address] Family Medicine, Physician [address] [place] [phone] Social History Tobacco Use Types Packs/Day Years [...] on filedocumented in this encounter Care Teams Jackerman Relationship Specialty Start Date End Date Cathie Benavidez MD [address] [place] [address] PCP - General Pediatrics 08/14/19 10/11/22 documented as of this encounter
--- OUTSIDE RECORDS SUMMARY | 2025-05-29 09:35 | XMS_ITS | Encounter Summary ---
Author Organization [facility] Address [address] [place], [place] [address] Phone Care Team Providers Care Geophysics Professor Name Role Phone Cathie Benavidez MD Primary Care Provider [phone] Encounter Details Date Type Department Care Team (Late st Contact Info) Description 11/07/2016 Documentation [facility] [place] Family Medicine [address] [place] [address] Family Medicine, Physician [address] [place], [place] [phone] Social History Tobacco Use Types Packs/Day Years [...] on filedocumented in this encounter Care Teams Geophysics Professor Relationship Specialty Start Date End Date Cathie Benavidez MD [address] [place] [address] PCP - General Pediatrics 08/14/19 10/11/22 documented as of this encounter
--- OUTSIDE RECORDS SUMMARY | 2025-05-29 09:35 | XMS_ITS | Encounter Summary ---
Author Organization [facility] Address [address] [place], [place] [address] Phone Care Team Providers Care Call Center Coordinator Name Role Phone Cathie Benavidez MD Primary Care Provider [phone] Encounter Details Date Type Department Care Team (Late st Contact Info) Description 06/06/2016 Documentation [facility] [place] Family Medicine [address] [place] [address] Family Medicine, Physician [address], [place] [phone] Social History Tobacco Use Types Packs/Day Years [...] on filedocumented in this encounter Care Teams Call Center Coordinator Relationship Specialty Start Date End Date Cathie Benavidez MD [address] [place] [address] PCP - General Pediatrics 08/14/19 10/11/22 documented as of this encounter
--- OUTSIDE RECORDS SUMMARY | 2025-05-29 09:35 | XMS_ITS | Patient Health Record ---
Author Organization [facility] Address [address] [place] [address] Care Team Providers Care Folder Stitcher Operator Name Role Phone Neel Duque MD Primary Care Provider Paul Cortes Jr Unavailable Allergies No Known Allergies Reason For Referral No Information Medications Medication SIG (Take, Route, Frequency, Duration) Notes Start Date End Date Status Ibuprofen 600 MG Tablet Oral; Duration: 11 Active Ventolin HFA 108 (90 Base) MCG/ACT Aerosol Solution Inhalation; Duration: 25 Active metroNIDAZOLE 500 MG Tablet TAKE 1 TABLE T BY MOUTH EVERY 12 HOURS FOR 7 DAYS Oral; Duration: 7 Active Progesterone 200 MG Capsule TAKE 1 CAPSU LE BY MOUTH EVERY DAY AT BEDTIME FOR 5 DAYS Oral; Duration: 5 Active Doxycycline Hyclate 100 MG Capsule Oral; Duration: 14 Active Ketorolac Tromethamine 10 MG Tablet Oral; Duration: 4 Active Ondansetron 4 MG Tablet Disintegrating Oral; Duration: 4 Active Gas Relief Extra Strength 125 MG Capsule TAKE 1 CAPSULE BY MOUTH 2-4 TIMES A DAY NEEDED Oral; Duration: 5 Active Dicyclomine HCl 10 MG Capsule 1 tablet Orally 2-4 times a day 10/25/2023 Active Omeprazole 20 MG Capsule Delayed Release 1 capsule 30 minutes before morning meal Orally Once a day; Duration: 30 day(s) 10/25/2023 Active Acetaminophen Extra Strength 500 MG Tablet Oral; Duration: 8 Active Immunizations Vaccine Route Administration Date Status Comme nts Influenza Unknown 03/06/2023 Refused Influenza Unknown 09/09/2024 Refused Social History Tobacco Use: Social History Observation Description Date Details (start date - stop date) Never Smoker NA - NA Social History Drugs/Alcohol: Social Info Question Answer Notes Alcohol Screen Did you have a drink containing alcohol in the past year? No Points 0 Interpretation Negative Tobacco Use: Social Info Question Answer Notes Tobacco Use/Smoking Patient is a nonsmoker Additional Details Category Social Info Options Details Miscellaneous: Marital status: single Problems Problem Type SNOMED Code ICD Code Onset Dates Problem Status W/U Status Risk Notes Problem Epigastric pain (38614363) Epigastric pain (R10.13) Active confirmed Problem Change in bowel habit (88176168) Change in bowel habits (R19.4) Active confirmed Problem Gastroesophageal reflux disease (538712718) Gastroesophageal reflux disease, unspecified whether esophagitis present (K21.9) Active confirmed Vital Signs Temperature 97.1 degrees Fahrenheit 09/09/2024 Blood pressure diastolic 01 mm Hg 09/09/2024 Height 63 in 09/09/2024 Blood pressure systolic 001 mm Hg 09/09/2024 Weight 127.2 lbs 09/09/2024 BMI 22.53 kg/m2 09/09/2024 Encounters Encounter Location Date Provider Diagnosis [facility] [address] [place] [id number] 09/09/2024 Paul Lu Jr Gastroesophageal reflux disease, [...] treatment of this today. She will continue [id number]-tdr nter simethicone. Follow-up will be in 1 [...] treatment of this today. She will continue zjnf-eus-lym nter simethicone. Follow-up will be in 1 year. Plan Of Treatment Pending Test Test Name Order Date LIVER PROFILE 03/11/2024 LIPASE 03/11/2024 CBC w/o DIFF 03/11/2024 STOOL WBC 03/11/2024 OVA & PARASITES (O&P) 03/11/2024 TSH REFLEX FREE T4 03/11/2024 Future Test Test Name Order Date COLONOSCOPY 03/06/2023 UPPER GI ENDOSCOPY 10/25/2023 Next Appt Details Provider Name:Paul savage Jr, 09/10/2025 10:20:00 AM, [address] [place] [address], [address], [place], [address], Insurance Providers Payer Name Payer Address Payer Phone Subscriber Number Group Number Insured Name Patient Relationship to Insured Coverage Start Date Coverage End Date [facility] [address] [address] [place], [place] [id number] Self - patient is the [...]
--- OUTSIDE RECORDS SUMMARY | 2025-05-29 09:35 | XMS_ITS | Encounter Summary ---
Author Organization [facility] Address [address] [place] [address] Phone Care Team Providers Care Measurement And Sensing Technician Name Role Phone Cathie Benavidez MD Primary Care Provider [phone] Encounter Details Date Type Department Care Team (Late st Contact Info) Description 02/09/2017 Documentation [facility] [place] [address] [place] [address] Family Medicine, Physician [address] [place], [place] [phone] Social History Tobacco Use Types Packs/Day Years [...] on filedocumented in this encounter Care Teams Measurement And Sensing Technician Relationship Specialty Start Date End Date Cathie Benavidez MD [address] [place] [address] PCP - General Pediatrics 08/14/19 10/11/22 documented as of this encounter
--- OUTSIDE RECORDS SUMMARY | 2025-05-29 09:35 | XMS_ITS | Encounter Summary ---
Author Organization [facility] Address [address] [place] [address] Phone Care Team Providers Care Wheel Roller Name Role Phone Cathie Benavidez MD Primary Care Provider [phone] Encounter Details Date Type Department Care Team (Late st Contact Info) Description 02/09/2017 Documentation [facility] [place] Family Medicine [address] [place] [address] Family Medicine, Physician [address], [place] [phone] Social History Tobacco Use Types Packs/Day Years [...] on filedocumented in this encounter Care Teams Wheel Roller Relationship Specialty Start Date End Date Cathie Benavidez MD [address] [place] [address] PCP - General Pediatrics 08/14/19 10/11/22 documented as of this encounter
--- OUTSIDE RECORDS SUMMARY | 2025-05-29 09:35 | XMS_ITS | Encounter Summary ---
Author Organization [facility] Address [address] [place], [place] [address] Phone Care Team Providers Care Drill Grinder Name Role Phone Cathie Benavidez MD Primary Care Provider [phone] Encounter Details Date Type Department Care Team (Late st Contact Info) Description 12/09/[address] [facility] [place] Family Medicine [address] [place] [address] Family Medicine, Physician [address], [place] [phone] Social History Tobacco Use Types Packs/Day Years [...] filedocumented in this encounter Care Teams Drill Grinder Relationship Specialty Start Date End Date Cathie Benavidez MD [address] [place] [address] PCP - General Pediatrics 08/14/19 10/11/22 documented as of this encounter
--- OUTSIDE RECORDS SUMMARY | 2025-05-29 09:35 | XMS_ITS | Encounter Summary ---
Author Organization [facility] Address [address] [place], [place] [address] Phone Care Team Providers Care Obstetrics Tech Name Role Phone Cathie Benavidez MD Primary Care Provider [phone] Encounter Details Date Type Department Care Team (Late st Contact Info) Description 09/08/2016 Documentation [facility] [place] [address] [place] [address] Family Medicine, Physician [address], [place] [phone] Social History Tobacco Use Types Packs/Day Years [...] on filedocumented in this encounter Care Teams Obstetrics Tech Relationship Specialty Start Date End Date Cathie Benavidez MD [address] [place] [address] PCP - General Pediatrics 08/14/19 10/11/22 documented as of this encounter
--- OUTSIDE RECORDS SUMMARY | 2025-05-29 09:35 | XMS_ITS | Encounter Summary ---
Author Organization [facility] Address [address] [place], [place] [address] Phone Care Team Providers Care Bridal Gown Fitter Name Role Phone Cathie Benavidez MD Primary Care Provider [phone] Encounter Details Date Type Department Care Team (Late st Contact Info) Description 12/09/2015 Documentation [facility] [place] [address] [place] [address] Family Medicine, Physician [address] [phone] Social History Tobacco Use Types Packs/Day Years [...] on filedocumented in this encounter Care Teams Bridal Gown Fitter Relationship Specialty Start Date End Date Cathie Benavidez MD [address] [place] [address] PCP - General Pediatrics 08/14/19 10/11/22 documented as of this encounter
--- OUTSIDE RECORDS SUMMARY | 2025-05-29 09:35 | XMS_ITS | Encounter Summary ---
Author Organization [facility] Address [address] [place], [place] [address] Phone Care Team Providers Care Patient Relations Representative Name Role Phone Cathie Benavidez MD Primary Care Provider [phone] Encounter Details Date Type Department Care Team (Late st Contact Info) Description 11/07/2016 Documentation [facility] [place] Family Medicine [address] [place] [address] Family Medicine, Physician [address], [place] [phone] Social History Tobacco Use Types Packs/Day Years [...] on filedocumented in this encounter Care Teams Patient Relations Representative Relationship Specialty Start Date End Date Cathie Benavidez MD [address] [place] [address] PCP - General Pediatrics 08/14/19 10/11/22 documented as of this encounter
--- OUTSIDE RECORDS SUMMARY | 2025-05-29 09:35 | XMS_ITS | Clinical Summary ---
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 Oneal not yet been evaluated by SENIOR TECHNOLOGIST. First episode 07/2019: - 08/14/2019: In ED CT abd/pelvis with IV contrast normal. Chemistries icnluding lipase, cbc normal. HCG neg. - 08/17/2019 Diagnosed in the office with PID and treated. G/C negative. Transvaginal ultrasound was normal. D iagnosed with constipation, treated with miralax. - 08/20/2019 Sent back to ED by SENIOR TECHNOLOGIST, second transvaginal U/S was done. - 08/29/2019: [...] metronidazole. She did have an ultrasound at [facility] on 04/29 and has not heard results - 05/04/2020: Office visit here in extreme pain, sent Back to ED where she left without completing her visit. 07/23/2020: Labs and KUB normal. GI apt upcoming 07/30/2020 07/30/2020: GI (Dr Trejo) planning for endoscpoy Third episode: 11/17/2020 (age 20yr): [facility] ED for pelvic pain, suspected pelvic congestive syndrome. U/S normal except prominent pelvic vasculature. Suggest SENIOR TECHNOLOGIST referral. 11/26/2020 (age 20yr): : admitted to [facility] 11/18/2020 - 11/12/2020 for 5 days of severe abdominal pain. Initiated treatment for presumed PID, no other diagnosis made, treated wit abx. GC/chlam neg. Missed SENIOR TECHNOLOGIST appointment. Assessment & Plan (12/03/2020 9:13 AM EDT): 12/03/2020 (age 20yr): vag probe from yesterday positive for yeast. With pt on antibiotics for PID and having symptoms of vaginitis, I recommend treatment. I will call in [facility] for her. 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 Oneal not yet been evaluated by SENIOR TECHNOLOGIST. Feeling better today after recent admission to [facility] where she was treated for PID. - Recommend reschedule with SENIOR TECHNOLOGIST, be persistent about getting appt and confirming appt time. - Recommend adult primary care as Petr is starting to have adult medical issues and may be needing more neuroscience specialist care going forward. Assessment & Plan [...] nd well Other Family history of Sudden /DC under 55, Family history of Asthma, No [...] 04/30/2017, 09/2003, 09/28/2000 Procedures * Due to [place] state law, this organization might not be sharing sensitive test results. Procedure Name Priority Date/Time Associated Diagnosis Comments CHLAMYDIA AND GONORRHEA, AMPLIFIED Routine 05/05/2020 4:29 PM EST Screening examination for bacterial and spirochetal disease from Last 3 Months or Most Recently Relevant to Health Maintenance Results * Due to [place] state law, this organization might not be sharing sensitive test results. * Chlamydia and Gonorrhoea, Amplified (05/05/2020 4:29 PM EST) Chlamydia Trachomatis, DNA Probe NOT DETECTED (NEG) [facility] Comment:Reference range: NOT DETECTED URINE GC AMP PROBE NOT DETECTED (NEG) [facility] Comment: Reference range: NOT DETECTED (NOTE) The analytical performance characteristics of this assay, when used to test SurePath(TM) specimens have been determined by [employer]. The modifications have not been cleared or approved by the FDA. This assay has been validated pursuant to the CLIA regulations and is used for clinical purposes. = For additional information, please refer to https://education.[employer]/faq/YFC269 (This link is being provided for information/ educational purposes only.) = Test Performed by: [employer], [address] [place] [address]. [id number]. Pharmaceutical Representative: Gil Newberry MD. Testing performed or reported by [facility], a Service of [facility], [place] [address] Baljit Faith MD, Baccarat Dealer Urine 05/05/2020 4:29 PM EST 05/05/2020 7:26 PM EST Cathie Benavidez MD LAB MICROBIOLOGY - GENERAL OR DERABLES Final Result [facility] from Last 3 Months or Most Recently Relevant to Health Maintenance Insurance [facility] NON PCC
--- OUTSIDE RECORDS SUMMARY | 2025-05-29 09:35 | XMS_ITS | Encounter Summary ---
Author Organization [facility] Address [address] [place], [place] [phone] Phone Care Team Providers Care Personal Lines Insurance Advisor Name Role Phone Cathie Benavidez MD Primary Care Provider [phone] Encounter Details Date Type Department Care Team (Late st Contact Info) Description 08/11/2016 Documentation [facility] [place] Family Medicine [address] [place] [address] Family Medicine, Physician [address], [place] [phone] Social History Tobacco Use Types Packs/Day Years [...] on filedocumented in this encounter Care Teams Personal Lines Insurance Advisor Relationship Specialty Start Date End Date Cathie Benavidez MD [address] [place] [address] PCP - General Pediatrics 08/14/19 10/11/22 documented as of this encounter
== END 2025-05-29 09:26 | disposition home or self-care (01) ==
LOC: HO.HSM 08:53
PROVIDERS: PCP Internal Medicine; Visit Provider Registered Nurse
DX: G43.909 Migraine, unspecified, not intractable, without status migrainosus (principal); R42 Dizziness and giddiness; S46.911A Strain of unspecified muscle, fascia and tendon at shoulder and upper arm level, right arm, initial encounter
CPT/HCPCS: 99214

== ENCOUNTER → 2025-05-29 08:52 | Outpatient (BNVA) | payer OTHER, SELFPAY | PROVIDERS: PCP Internal Medicine; Visit Provider Registered Nurse | DX: S46.911A Strain of unspecified muscle, fascia and tendon at shoulder and upper arm level, right arm, initial encounter (principal); G43.909 Migraine, unspecified, not intractable, without status migrainosus; R42 Dizziness and giddiness; X58.XXXA Exposure to other specified factors, initial encounter; Y92.9 Unspecified place or not applicable; Y93.9 Activity, unspecified; Y99.9 Unspecified external cause status | CPT/HCPCS: 99212 ==